=== PATIENT | female | born 1965 | race Caucasian/White ===

== ENCOUNTER → 2018-02-05 14:10 | Outpatient (CLI) | payer OTHER, MEDICAID, SELFPAY ==
[2018-02-05 14:54] LABS: Hemoglobin A1C% w Est Avg Glu > 14.0 % (4.0-6.0)
[2018-02-05 15:08] LABS: Alanine Aminotransferase 40 IU/L (9-52); Albumin 3.6 g/dL (3.5-5.0); Albumin Globulin Ratio 1.1 (1.0-2.8); Alkaline Phosphatase 329 U/L (38-126); Aspartate Aminotransferase 53 IU/L (14-36); BUN Creatinine Ratio 13.8 (6-22); Bilirubin Total 0.4 mg/dL (0.2-1.3); Blood Urea Nitrogen 11 mg/dL (7-17); Calcium 8.6 mg/dL (8.4-10.2); Carbon Dioxide 27 mmol/L (22-32); Chloride 94 mmol/L (98-107); Estimated Glomerular Filt Rate > 60.0 mL/min (>60); Globulin 3.4 g/dL (1.7-4.1); HEMOLYSIS < 15 (0-50); Potassium 4.4 mmol/L (3.4-5.1); Sodium 132 mmol/L (137-145)
[2018-02-05 15:20] LABS: Glucose 823 mg/dL (70-100)
== END ==
PROVIDERS: PCP Family Medicine; Visit Provider Family Medicine
DX: R74.8 Abnormal levels of other serum enzymes (principal); E11.42 Type 2 diabetes mellitus with diabetic polyneuropathy
CPT/HCPCS: 36415; 80053; 83036

== ENCOUNTER 2018-05-06 23:51 | Emergency (ER) | payer OTHER, MEDICAID, SELFPAY ==
[2018-05-07 00:02] VITALS: BP 164/101; PULSE 104; RESP 18; TEMP 37; O2SAT 99
--- NOTE | 2018-05-07 00:21 | DI.RAD.S_ITS ---
PROCEDURE: XR HAND LT MIN 3V INDICATIONS: bruising 5th metacarpal TECHNIQUE: 3 views of the hand(s) acquired. COMPARISON: None. FINDINGS: Bones: There is an oblique fracture at the base of the fifth metacarpal with mild displacement. Carpal bones are normally aligned. No suspicious bony lesions. Soft tissues: No suspicious soft tissue calcifications. IMPRESSION: Mildly displaced oblique fracture at the fifth metacarpal base Dictated by: Jeffrey Nathan M.D. on 05/07/2018 at 8:19 Approved by: Jeffrey Nathan M.D. on 05/07/2018 at 9:37
--- NOTE | 2018-05-07 00:21 | DI.RAD.S_ITS ---
PROCEDURE: XR WRIST RT MIN 3V INDICATIONS: pain right wrist. TECHNIQUE: 4 views of the wrist were acquired. COMPARISON: None. FINDINGS: Bones: No fractures or dislocations. No suspicious bony lesions. There is osteopenia. Scaphoid view: Port appears intact. Soft tissues: No suspicious soft tissue calcifications. IMPRESSION: No fracture or dislocation. Dictated by: Jeffrey Nathan M.D. on 05/07/2018 at 8:18 Approved by: Jeffrey Nathan M.D. on 05/07/2018 at 9:37
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
[2018-05-07] MEDS: INSULIN REGULAR 100 UNIT/ML 3 ML VIAL 25 UNIT SUBCUT (00:41)
[2018-05-07] MEDS: INSULIN GLARGINE 100 UNIT/ML 3ML PEN 33 UNIT SUBCUT (00:41)
[2018-05-07] MEDS: SODIUM CHLORIDE 0.9% 1,000 ML 500 ML IV (00:41)
[2018-05-07 00:42] LABS: Add Manual Diff / Slide Review NO; Basophils Percent Auto 0.7 % (0-2); Hematocrit 39.1 % (36-46); Hemoglobin 13.3 g/dL (12.0-16.0); Lymphocytes Percent Auto 25.8 % (25-40); Mean Corpuscular Hemoglobin 30.3 PG (26-34); Mean Corpuscular Volume 89.1 fL (80-100); Monocytes Percent Auto 3.3 % (3-14); Neutrophils Absolute Auto 8400 /uL (3000-5900); Neutrophils Percent Auto 69.2 % (50-75); Platelet Count 265 X10^3/uL (150-400); Red Blood Cell Count 4.38 X10^6/uL (4.0-5.2); Red Cell Distribution Width 12.5 % (11.6-14.8); White Blood Cell Count 12.1 X10^3/uL (4.5-11.0)
[2018-05-07 00:49] LABS: Alanine Aminotransferase 40 IU/L (9-52); Albumin 4.1 g/dL (3.5-5.0); Albumin Globulin Ratio 1.1 (1.0-2.8); Alkaline Phosphatase 294 U/L (38-126); Aspartate Aminotransferase 61 IU/L (14-36); BUN Creatinine Ratio 15.7 (6-22); Bilirubin Total 0.5 mg/dL (0.2-1.3); Blood Urea Nitrogen 11 mg/dL (7-17); Calcium 9.3 mg/dL (8.4-10.2); Carbon Dioxide 24 mmol/L (22-32); Chloride 94 mmol/L (98-107); Estimated Glomerular Filt Rate > 60.0 mL/min (>60); Globulin 3.7 g/dL (1.7-4.1); Glucose 451 mg/dL (70-100); HEMOLYSIS < 15 (0-50); Sodium 134 mmol/L (137-145); Total Protein 7.8 g/dL (6.3-8.2)
[2018-05-07] MEDS: ONDANSETRON 4 MG/2 ML INJ IV (01:35)
[2018-05-07 02:01] VITALS: BP 134/71; PULSE 100; O2SAT 100
[2018-05-07] MEDS: MORPHINE ER 30 MG TABLET PO (02:15)
[2018-05-07 02:34] LABS: RBC Urine None Seen (0-5/HPF)
[2018-05-07 02:45] LABS: Bacteria Urine Few (2-10); Culture Indicated Urine Specimen Cultured; Squamous Epithelial Cell Urine 0-1 /HPF; WBC Urine 1-5/HPF (0-5/HPF)
[2018-05-07 03:44] VITALS: BP 150/85; PULSE 103
[2018-05-07] MEDS: cloNIDine 0.1 MG TABLET PO (03:44)
[2018-05-07 03:47] VITALS: BP 150/85; PULSE 103; RESP 17; O2SAT 100
== END 2018-05-07 03:58 | disposition home or self-care (01) ==
PROVIDERS: Emergency Provider Emergency Medicine; PCP Family Medicine
DX: S62.307A Unspecified fracture of fifth metacarpal bone, left hand, initial encounter for closed fracture (principal); R73.9 Hyperglycemia, unspecified; Y04.8XXA Assault by other bodily force, initial encounter
CPT/HCPCS: 29125; 36591; 73110; 73130; 80053; 81003; 81015; 82962; 85025; 87077; 87086; 87147; 96361; 96374; 99283; 99284; J2405

== ENCOUNTER → 2018-06-17 13:42 | Outpatient (CLI) | payer OTHER, MEDICAID, SELFPAY ==
--- NOTE | 2018-06-17 | DI.MRI.S_ITS ---
PROCEDURE: MR LUMBAR SPINE WO CON INDICATIONS: LOW BACK PAIN TECHNIQUE: Noncontrast sagittal T1 spin echo and T2 fast echo, sagittal STIR, axial T1 and T2 fast spin echo through the lumbar spine. In cases with scoliosis, additional coronal T2 fast spin echo may be performed. COMPARISON: [facility], MR, L-SPINE WITHOUT CONTRAST, 10/16/2016, 20:51. FINDINGS: Image quality: Excellent. Alignment and Curvature: Levocurvature of the lumbar spine. Bone Marrow: Marrow is of normal overall signal. No acute vertebral body compression fractures. Spinal Cord: Conus medullaris terminates at the L2-L3 is level. Visualized cord demonstrates normal signal and size. Paraspinous Soft Tissues: No paravertebral masses. There is diffuse dependent subcutaneous edema from L1-sacrum. L1-L2: Minimal broad-based posterior disc bulge and bilateral facet disease. Mild central canal narrowing. Lateral recesses appear grossly patent. No left foraminal stenosis. Mild right foraminal narrowing. No interval change L2-L3: Broad-based posterior disc bulge and bilateral facet arthropathy. Mild dorsal epidural lipomatosis. Mild central canal narrowing. Minimal partial effacement of both lateral recesses, which appear symmetric. Mild right and no definite left foraminal narrowing. No definite interval change L3-L4: Minimal broad-based posterior disc bulge bilateral facet arthropathy. Dorsal epidural lipomatosis. Mild central canal narrowing. Minimal partial effacement of the lateral recesses which appear symmetric. Mild left and moderate right foraminal stenoses, slightly progressed on the right since the prior study. L4-L5: Broad-based posterior disc bulge bilateral facet arthropathy. Dorsal epidural lipomatosis. Moderate central canal stenosis. Asymmetric, left greater than right partial effacement of the lateral recesses however this is probably unchanged. Mild right and left foraminal narrowing, no interval change L5-S1: Broad-based posterior disc bulge and bilateral facet disease, with mild epidural lipomatosis. Bilateral facet arthropathy. Minimal symmetric partial effacement of both lateral recesses. Severe left and no right foraminal stenoses, as before IMPRESSION: Overall, unchanged examination since 10/16/16. Severe left L5-S1 foraminal stenosis, as before Moderate L4-L5 canal narrowing. Levocurvature of the lumbar spine as before. Dictated by: Shawn Romano M.D. on 06/17/2018 at 14:20 Approved by: Shawn Romano M.D. on 06/17/2018 at 14:32
== END ==
PROVIDERS: PCP Family Medicine; Visit Provider Acupuncturist
DX: M48.061 Spinal stenosis, lumbar region without neurogenic claudication (principal); M48.07 Spinal stenosis, lumbosacral region; M51.26 Other intervertebral disc displacement, lumbar region; M51.27 Other intervertebral disc displacement, lumbosacral region; M47.816 Spondylosis without myelopathy or radiculopathy, lumbar region; M47.817 Spondylosis without myelopathy or radiculopathy, lumbosacral region; E88.2 Lipomatosis, not elsewhere classified
CPT/HCPCS: 72148

== ENCOUNTER 2018-10-06 12:03 | Inpatient (IN) | payer OTHER, MEDICAID, SELFPAY ==
[2018-10-06 12:10] VITALS: BP 190/102; PULSE 101; RESP 20; TEMP 36.7; O2SAT 99; BMI 25.7
[2018-10-06] MEDS: ONDANSETRON 4 MG/2 ML INJ IV ×3 (12:35→17:46)
[2018-10-06 12:51] LABS: Add Manual Diff / Slide Review NO; Basophils Absolute Auto 100 /uL (0-100); Basophils Percent Auto 0.9 % (0-2); Eosinophils Absolute Auto 200 /uL (0-450); Eosinophils Percent Auto 2.1 % (2-4); Hematocrit 40.3 % (36-46); Hemoglobin 13.8 g/dL (12.0-16.0); INR 0.9 (0.9-1.3); Lymphocytes Absolute Auto 2200 /uL (1100-4500); Lymphocytes Percent Auto 26.1 % (25-40); Mean Corpuscular HGB Conc 34.2 % (30-36); Mean Corpuscular Hemoglobin 30.7 PG (26-34); Mean Corpuscular Volume 89.7 fL (80-100); Monocytes Absolute Auto 300 /uL (0-900); Monocytes Percent Auto 3.8 % (3-14); Neutrophils Absolute Auto 5800 /uL (1500-7000); Neutrophils Percent Auto 67.1 % (50-75); Platelet Count 262 X10^3/uL (150-400); Prothrombin Time 10.6 SECONDS (10.1-12.7); Red Blood Cell Count 4.49 X10^6/uL (4.0-5.2); Red Cell Distribution Width 13.2 % (11.6-14.8); White Blood Cell Count 8.6 X10^3/uL (4.5-11.0)
[2018-10-06 12:53] LABS: PTT Partial Thromboplastin Tim 34 SECONDS (26.4-36.2)
[2018-10-06] MEDS: SODIUM CHLORIDE 0.9% 1,000 ML 1000 ML IV (12:54)
[2018-10-06 12:56] LABS: Amylase 51 U/L (30-110); Lipase 221 U/L (23-300)
[2018-10-06 12:57] LABS: Alanine Aminotransferase 62 IU/L (9-52); Albumin 4.5 g/dL (3.5-5.0); Albumin Globulin Ratio 1.1 (1.0-2.8); Alkaline Phosphatase 341 U/L (38-126); Aspartate Aminotransferase 67 IU/L (14-36); Bilirubin Total 0.5 mg/dL (0.2-1.3); Blood Urea Nitrogen 16 mg/dL (7-17); Calcium 9.8 mg/dL (8.4-10.2); Carbon Dioxide 25 mmol/L (22-32); Chloride 98 mmol/L (98-107); Estimated Glomerular Filt Rate > 60.0 mL/min (>60); Globulin 4.1 g/dL (1.7-4.1); Glucose 353 mg/dL (70-100); HEMOLYSIS < 15 (0-50); Potassium 3.8 mmol/L (3.4-5.1); Sodium 136 mmol/L (137-145); Total Protein 8.6 g/dL (6.3-8.2)
--- NOTE | 2018-10-06 13:44 | ED.ABDPAIN ---
HPI - Abdominal Pain <Jimena Rosario PA-C - Last Filed: 10/06/18 21:17> General Chief Complaint: Abdominal Pain Stated Complaint: THROWING UP BILE/BLOOD,ABD PAIN Time Seen by Provider: 10/06/18 13:39 Source: patient Mode of arrival: ambulatory Limitations: no limitations History of Present Illness HPI narrative: this 53-year-old female comes to ED secondary to abdominal pain which she states has been going on for a week, but more intense since Sunday. She states she has been vomiting bile and/or blood off and on for about a week, also more persistent over the weekend. She cannot tell me how many times she has vomited today, but has had dry heaves since here. She describes the pain as diffuse. Can feel it radiating to her back. She states she has normal bowel movements, no blood in the stools. She denies any urinary symptoms. She states that she feels warm, but no blood in the stools. She feels itchy all over but denies any rash. She states that her COPD seems about the same as usual, no acute respiratory difficulties, no new swelling or pain in the extremities. She states that she can feel the abdominal pain radiating up into her chest at times but denies any christy chest pain. Denies any other complaints on systems review. She states that she was just changed to OxyContin from morphine, and also uses Dilaudid for breakthrough pain for her spinal disorders, sarcoidosis, and fibromyalgia, however states she has not been able to keep down her pain medicines all week, nor any food or fluids. She states that she was recently changed from previous pain medication to OxyContin 20 mg b.i.d. plus 4 mg Dilaudid for breakthrough pain. She gets this from [facility]. Related Data Home Medications Medication Instructions Recorded Confirmed epinephrine 0.3 mg IM PRN PRN #0 05/11/17 10/06/18 dicyclomine 10 mg PO QIDP PRN #0 10/05/17 10/06/18 Restasis 1 drp OPHTH BID #0 11/09/17 10/06/18 hydromorphone 4 mg PO PRN PRN #0 11/09/17 10/06/18 1 tab PO DAILY 01/18/18 10/06/18 vitamin,calcium,pqaidikw-vceb-gqnij acid tablet glucagon (human recombinant) 1 mg SUBCUT Q20M PRN 10/06/18 10/06/18 [Glucagon Emergency Kit (human)] oxycodone [OxyContin] 20 mg PO Q12H 10/06/18 10/06/18 vortioxetine [Trintellix] 1 tab PO DAILY 10/06/18 10/06/18 Previous Rx's Medication Instructions Recorded aspirin 81 mg PO QDAY #30 tab 04/20/16 pantoprazole [Protonix] 40 mg PO QDAY #90 tab 09/14/16 levomefolate calcium 15 mg PO QDAY #90 cap 07/12/17 [L-Methylfolate] naproxen [Naprosyn] 500 mg PO BID PRN #60 tab 08/17/17 Spiriva with HandiHaler 18 mcg INH QDAY #30 cap 08/23/17 Flovent HFA 2 puff INH BID #1 inh 09/04/17 ketoconazole 1 nathan TOPICAL BID #30 gm 09/11/17 Ventolin HFA 1 - 2 puff INH 4-6HRS #1 inh 10/18/17 ondansetron [Zofran ODT] 4 mg SUBLINGUAL Q6HP PRN #30 odt 11/12/17 insulin glargine (U-100) 100 30 unit SUBCUT HS #1 ml 05/31/18 unit/mL (3 mL) subcutaneous pen insulin lispro (U- 100) 100 10 - 15 unit SUBCUT ACHS #1 syr 05/31/18 unit/mL subcutaneous pen clonidine HCl 0.2 mg tablet 0.2 mg PO BID #60 tab 08/13/18 propranolol 20 mg tablet 20 mg PO TID PRN #10 tab 08/13/18 tizanidine 4 mg tablet 4 mg PO Q8H PRN #90 tab 08/27/18 dextroamphetamine-amphetamine ER 10 mg PO QAM #30 cap 08/29/18 10 mg 24hr capsule,extend release CMP Testosterone 0.2% See Rx Instructions .ROUTE 09/24/18 .COMPLEX #30 gram nystatin-triamcinolone 100,000 See Rx Instructions TOP BID #30 09/24/18 unit/gram-0.1 % topical ointment gram estradiol 0.01% (0.1 mg/gram) See Rx Instructions VAG DAILY 09/25/18 vaginal cream #42.5 gram Allergies Allergy/AdvReac Type Severity Reaction Status Date / Time venom-honey bee Allergy Severe SWOLLEN Verified 10/06/18 12:09 [bee venom (honey bee)] TONGUE AND THROAT BUT NOT ANAPHALAXIS pregabalin [From LYRICA] Allergy Intermediate 'WELTS ON Verified 10/06/18 12:09 MY BODY' cyclobenzaprine Allergy Unknown Verified 10/06/18 12:09 [From FLEXERIL] gabapentin Allergy Unknown MY Verified 10/06/18 12:09 THOUGHT IT MADE ME ACT WERID hydroxyzine AdvReac Unknown PT STATES Verified 10/06/18 12:09 EYES DRIES ME UP venlafaxine AdvReac Unknown MADE MY Verified 10/06/18 12:09 BLOOD PRESSURE HIGH trazodone AdvReac heart Verified 10/06/18 12:09 palpatations MALIN NICOLAS Allergy Severe SWELLING Uncoded 10/06/18 12:09 FACE AND THROAT LACTOSE INTOLERANT AdvReac Unknown Uncoded 10/06/18 12:09 Review of Systems <Jimena Rosario PA-C - Last Filed: 10/06/18 21:17> Review of Systems ROS Unobtainable: All systems reviewed & are unremarkable except as noted in HPI and below PFSH <Jimena Rosario PA-C - Last Filed: 10/06/18 21:17> Medical History ADHD (attention deficit hyperactivity disorder) (Chronic) Anxiety (Chronic) COPD (chronic obstructive pulmonary disease) (Chronic) Cataract (Chronic) Chronic cough (Chronic) Chronic headaches (Chronic) Depression (Chronic) Diabetes mellitus (Chronic 2003) Fibromyalgia (Chronic) GERD (gastroesophageal reflux disease) (Chronic 1980) Hyperlipidemia (Chronic 1991) Hypertension (Chronic 1991) Lumbar spine pain (Chronic) PTSD (post-traumatic stress disorder) (Chronic) Sarcoidosis (Chronic) Scoliosis (Chronic) Shoulder pain (Chronic) Spinal stenosis (Chronic) Cervical cancer (Resolved 1991) Chicken pox (Resolved) Esophageal stricture (Resolved 09/2017) History of blood transfusion (Resolved ~07/1981) Kidney stones (Resolved) Pancreatitis (Resolved 2010) Surgical History Status post cataract extraction (Acute) Anesthesia (Resolved) History of tonsillectomy (Resolved 1967) S/P dilatation of esophageal stricture (Resolved 09/2017) Status post delivery (Resolved 05/02/85) Status post cholecystectomy (Resolved 02/1985) Status post hysterectomy (Resolved 1986) Family History Brother Age: 61 Diabetes mellitus Child Age: 37 Asthma Child Heart defect Father Age: 81 Hypertension Cirrhosis of liver Mother Heart disease High cholesterol Amyloidosis Sister Age: 58 Diabetes mellitus Heart disease Sister Heart disease Social History household members: spouse Smoking Status: Former smoker alcohol intake: never Family History Brother Age: 61 Diabetes mellitus Child Age: 37 Asthma Child Heart defect Father Age: 81 Hypertension Cirrhosis of liver Mother Heart disease High cholesterol Amyloidosis Sister Age: 58 Diabetes mellitus Heart disease Sister Heart disease Social History household members: spouse Smoking Status: Former smoker alcohol intake: never Exam <Jimena Rosario PA-C - Last Filed: 10/06/18 21:17> Narrative Exam Narrative: GENERAL APPEARANCE: patient is fidgeting and rolling in bed, appears uncomfortable, in NAD HEENT: PERRL, EOMI, no scleral icterus, conjunctiva pink NECK: Supple LUNGS: Clear to auscultation bilaterally. HEART: Rate and rhythm regular, normal S1 and S2, no S3 or S4. ABDOMEN: Soft, nondistended, bowel sounds present x 4 quadrants, no masses palpable, no hepatosplenomegaly palpable. she has guarding on initial exam, no rebound, mild bilateral CVAT as well as generalized tenderness which appears more pronounced over the lower quadrants and flanks. EXTREMITIES: No edema, no cyanosis DERMATOLOGIC: No jaundice or exanthem NEUROLOGIC: Alert and oriented with normal speech and coordination Initial Vital Signs Initial Vital Signs: Vital Signs Temperature 98.1 F 10/06/18 12:10 Pulse Rate 101 H 10/06/18 12:10 Respiratory Rate 20 10/06/18 12:10 Blood Pressure 190/102 H 10/06/18 12:10 Pulse Oximetry 99 10/06/18 12:10 <Paras Brown MD - Last Filed: 10/07/18 19:20> Initial Vital Signs Initial Vital Signs: Vital Signs Temperature 98.1 F 10/06/18 12:10 Pulse Rate 101 H 10/06/18 12:10 Respiratory Rate 20 10/06/18 12:10 Blood Pressure 190/102 H 10/06/18 12:10 Pulse Oximetry 99 10/06/18 12:10 Course <Jimena Rosario PA-C - Last Filed: 10/06/18 21:17> Additional Information: patient appears improved after Dilaudid, and reports pain better. On exam she does have some diffuse tenderness but is no longer guarding. She is unable to tolerate a p.o. challenge of water or bland food. She started to have dry heaving again right away. She does not think any of her symptoms are related to being off of her pain medication. Discussed there are no acute findings /changes on her lab work or CT scan. I spoke with Dr. Ibanez, on-call hospitalist, regarding inability to tolerate p.o., and he is agreeable for admission for observation for fluids and pain management. Orders Ordered: ED Orders 10/07/18 16:27 Consult to Physician Routine 10/08/18 05:00 Basic Metabolic Panel Routine Magnesium Routine Albuterol (Ventolin Hfa) 2 puff INH RTQ4HR PRN PRN Reason: Shortness Of Breath Clonidine HCl (Catapres) 0.2 mg PO BID [facility] Last Admin: 10/07/18 09:58 Dose: 0.2 mg Admin: 10/06/18 21:15 Dose: 0.2 mg Dextrose (D50w) 25 gm IV PRN PRN; Protocol PRN Reason: Hypoglycemia Dicyclomine HCl (Bentyl) 10 mg PO QID PRN PRN Reason: Inflammation Enoxaparin Sodium (Lovenox) 40 mg SUBCUT DAILY [facility] Last Admin: 10/07/18 08:24 Dose: 40 mg Fluticasone Propionate (Flovent Hfa) 2 puff INH BID [facility] Last Admin: 10/07/18 16:32 Dose: 2 puff Admin: 10/07/18 12:10 Dose: Not Given Admin: 10/06/18 23:14 Dose: Not Given Hydromorphone HCl (Dilaudid) 0.5 mg IV Q2H PRN PRN Reason: Pain, Severe (7-10) Last Admin: 10/07/18 13:45 Dose: 0.5 mg Admin: 10/07/18 08:27 Dose: 0.5 mg Admin: 10/07/18 00:16 Dose: 0.5 mg Sodium Chloride (Normal Saline 0.9%) 1,000 mls @ 100 mls/hr IV CONT [facility] Last Admin: 10/07/18 12:56 Dose: 100 mls/hr Infusion: 10/07/18 12:56 Dose: 100 mls/hr Admin: 10/07/18 03:18 Dose: 100 mls/hr Infusion: 10/07/18 03:18 Dose: 100 mls/hr Admin: 10/06/18 17:31 Dose: 100 mls/hr Ibuprofen (Advil) 600 mg PO TID PRN PRN Reason: Headache Insulin Aspart (Novolog Flexpen) 0 unit SUBCUT ACHS [facility]; Protocol Last Admin: 10/07/18 17:18 Dose: 5 unit Admin: 10/07/18 11:41 Dose: 7 unit Insulin Glargine (Lantus Solostar (Pen)) 30 unit SUBCUT BEDTIME [facility] Last Admin: 10/06/18 21:13 Dose: 5 unit Metoclopramide HCl (Reglan) 5 mg IV Q6HR [facility] Stop: 10/08/18 07:00 Last Admin: 10/07/18 17:17 Dose: 5 mg Admin: 10/07/18 11:57 Dose: 5 mg Admin: 10/07/18 06:05 Dose: 5 mg Admin: 10/07/18 00:16 Dose: 5 mg Admin: 10/06/18 17:30 Dose: 5 mg Naloxone HCl (Narcan) 0.2 mg IV Q2MIN PRN PRN Reason: Opiate Reversal Cyclosporine ( (Restasis) 1 Drop) 1 drop EYE-BOTH BID [facility] Last Admin: 10/07/18 11:54 Dose: Not Given Admin: 10/06/18 21:15 Dose: Not Given Levomefolate Calcium (L-Methylfolate) 15 Mg 15 mg PO DAILY [facility] Last Admin: 10/07/18 11:55 Dose: Not Given Vortioxetine 1 Tab 1 tab PO DAILY [facility] Last Admin: 10/07/18 11:56 Dose: Not Given Dextroamphetamine- Amphetamine ( Adderall Xr) 10 Mg 10 mg PO DAILY [facility] Last Admin: 10/07/18 11:52 Dose: Not Given Ondansetron HCl (Zofran) 4 mg IV Q8HR PRN PRN Reason: Nausea And Vomiting Last Admin: 10/07/18 09:54 Dose: 4 mg Admin: 10/07/18 02:00 Dose: 4 mg Admin: 10/06/18 17:46 Dose: 4 mg Oxycodone HCl (Oxycontin) 20 mg PO Q12H [facility] Last Admin: 10/07/18 17:16 Dose: 20 mg Admin: 10/07/18 04:52 Dose: 20 mg Admin: 10/06/18 17:30 Dose: 20 mg Pantoprazole Sodium (Protonix) 40 mg PO 0600 [facility] Last Admin: 10/07/18 06:05 Dose: 40 mg Propranolol HCl (Inderal) 20 mg PO TID PRN PRN Reason: anxiety Last Admin: 10/07/18 09:56 Dose: 20 mg Admin: 10/07/18 01:57 Dose: 20 mg Tiotropium Erin (Spiriva) 18 mcg INH DAILY [facility] Last Admin: 10/07/18 12:10 Dose: Not Given Tizanidine HCl (Zanaflex) 4 mg PO Q8H PRN PRN Reason: muscle spasticity Last Admin: 10/07/18 13:00 Dose: 4 mg Discontinued Medications Albuterol (Ventolin Hfa) 2 puff INH 4-6HRS [facility] Hydromorphone HCl (Dilaudid) 2 mg IV NOW ONE Stop: 10/06/18 13:57 Last Admin: 10/06/18 14:12 Dose: 2 mg Hydromorphone HCl (Dilaudid) 0.5 mg IV Q2HR PRN PRN Reason: Pain, Moderate (4-6) Last Admin: 10/06/18 21:28 Dose: 0.5 mg Admin: 10/06/18 17:30 Dose: 0.5 mg Sodium Chloride (Normal Saline 0.9%) 1,000 mls @ 1,000 mls/hr IV BOLUS ONE Stop: 10/06/18 13:38 Last Infusion: 10/06/18 14:37 Dose: 0 mls/hr Admin: 10/06/18 12:54 Dose: 1,000 mls/hr Ondansetron HCl (Zofran) 4 mg IV NOW ONE Stop: 10/06/18 12:39 Last Admin: 10/06/18 12:35 Dose: 4 mg Ondansetron HCl (Zofran) 4 mg IV NOW ONE Stop: 10/06/18 14:00 Last Admin: 10/06/18 14:11 Dose: 4 mg Pantoprazole Sodium (Protonix) 40 mg IV NOW ONE Stop: 10/06/18 15:35 Last Admin: 10/06/18 15:38 Dose: 40 mg Vital Signs - 8 hr 10/07/18 13:00 10/07/18 16:32 10/07/18 16:37 Temperature 97.8 F 97.5 F L Pulse Rate 58 L 56 L 61 Respiratory Rate 18 12 19 Blood Pressure 126/65 139/71 Pulse Oximetry 95 100 97 <Paras Brown MD - Last Filed: 10/07/18 19:20> Orders Ordered: ED Orders 10/07/18 16:27 Consult to Physician Routine 10/08/18 05:00 Basic Metabolic Panel Routine Magnesium Routine Albuterol (Ventolin Hfa) 2 puff INH RTQ4HR PRN PRN Reason: Shortness Of Breath Clonidine HCl (Catapres) 0.2 mg PO BID [facility] Last Admin: 10/07/18 09:58 Dose: 0.2 mg Admin: 10/06/18 21:15 Dose: 0.2 mg Dextrose (D50w) 25 gm IV PRN PRN; Protocol PRN Reason: Hypoglycemia Dicyclomine HCl (Bentyl) 10 mg PO QID PRN PRN Reason: Inflammation Enoxaparin Sodium (Lovenox) 40 mg SUBCUT DAILY [facility] Last Admin: 10/07/18 08:24 Dose: 40 mg Fluticasone Propionate (Flovent Hfa) 2 puff INH BID [facility] Last Admin: 10/07/18 16:32 Dose: 2 puff Admin: 10/07/18 12:10 Dose: Not Given Admin: 10/06/18 23:14 Dose: Not Given Hydromorphone HCl (Dilaudid) 0.5 mg IV Q2H PRN PRN Reason: Pain, Severe (7-10) Last Admin: 10/07/18 13:45 Dose: 0.5 mg Admin: 10/07/18 08:27 Dose: 0.5 mg Admin: 10/07/18 00:16 Dose: 0.5 mg Sodium Chloride (Normal Saline 0.9%) 1,000 mls @ 100 mls/hr IV CONT [facility] Last Admin: 10/07/18 12:56 Dose: 100 mls/hr Infusion: 10/07/18 12:56 Dose: 100 mls/hr Admin: 10/07/18 03:18 Dose: 100 mls/hr Infusion: 10/07/18 03:18 Dose: 100 mls/hr Admin: 10/06/18 17:31 Dose: 100 mls/hr Ibuprofen (Advil) 600 mg PO TID PRN PRN Reason: Headache Insulin Aspart (Novolog Flexpen) 0 unit SUBCUT ACHS [facility]; Protocol Last Admin: 10/07/18 17:18 Dose: 5 unit Admin: 10/07/18 11:41 Dose: 7 unit Insulin Glargine (Lantus Solostar (Pen)) 30 unit SUBCUT BEDTIME [facility] Last Admin: 10/06/18 21:13 Dose: 5 unit Metoclopramide HCl (Reglan) 5 mg IV Q6HR [facility] Stop: 10/08/18 07:00 Last Admin: 10/07/18 17:17 Dose: 5 mg Admin: 10/07/18 11:57 Dose: 5 mg Admin: 10/07/18 06:05 Dose: 5 mg Admin: 10/07/18 00:16 Dose: 5 mg Admin: 10/06/18 17:30 Dose: 5 mg Naloxone HCl (Narcan) 0.2 mg IV Q2MIN PRN PRN Reason: Opiate Reversal Cyclosporine ( (Restasis) 1 Drop) 1 drop EYE-BOTH BID [facility] Last Admin: 10/07/18 11:54 Dose: Not Given Admin: 10/06/18 21:15 Dose: Not Given Levomefolate Calcium (L-Methylfolate) 15 Mg 15 mg PO DAILY [facility] Last Admin: 10/07/18 11:55 Dose: Not Given Vortioxetine 1 Tab 1 tab PO DAILY [facility] Last Admin: 10/07/18 11:56 Dose: Not Given Dextroamphetamine- Amphetamine ( Adderall Xr) 10 Mg 10 mg PO DAILY [facility] Last Admin: 10/07/18 11:52 Dose: Not Given Ondansetron HCl (Zofran) 4 mg IV Q8HR PRN PRN Reason: Nausea And Vomiting Last Admin: 10/07/18 09:54 Dose: 4 mg Admin: 10/07/18 02:00 Dose: 4 mg Admin: 10/06/18 17:46 Dose: 4 mg Oxycodone HCl (Oxycontin) 20 mg PO Q12H [facility] Last Admin: 10/07/18 17:16 Dose: 20 mg Admin: 10/07/18 04:52 Dose: 20 mg Admin: 10/06/18 17:30 Dose: 20 mg Pantoprazole Sodium (Protonix) 40 mg PO 0600 [facility] Last Admin: 10/07/18 06:05 Dose: 40 mg Propranolol HCl (Inderal) 20 mg PO TID PRN PRN Reason: anxiety Last Admin: 10/07/18 09:56 Dose: 20 mg Admin: 10/07/18 01:57 Dose: 20 mg Tiotropium Erin (Spiriva) 18 mcg INH DAILY [facility] Last Admin: 10/07/18 12:10 Dose: Not Given Tizanidine HCl (Zanaflex) 4 mg PO Q8H PRN PRN Reason: muscle spasticity Last Admin: 10/07/18 13:00 Dose: 4 mg Discontinued Medications Albuterol (Ventolin Hfa) 2 puff INH 4-6HRS [facility] Hydromorphone HCl (Dilaudid) 2 mg IV NOW ONE Stop: 10/06/18 13:57 Last Admin: 10/06/18 14:12 Dose: 2 mg Hydromorphone HCl (Dilaudid) 0.5 mg IV Q2HR PRN PRN Reason: Pain, Moderate (4-6) Last Admin: 10/06/18 21:28 Dose: 0.5 mg Admin: 10/06/18 17:30 Dose: 0.5 mg Sodium Chloride (Normal Saline 0.9%) 1,000 mls @ 1,000 mls/hr IV BOLUS ONE Stop: 10/06/18 13:38 Last Infusion: 10/06/18 14:37 Dose: 0 mls/hr Admin: 10/06/18 12:54 Dose: 1,000 mls/hr Ondansetron HCl (Zofran) 4 mg IV NOW ONE Stop: 10/06/18 12:39 Last Admin: 10/06/18 12:35 Dose: 4 mg Ondansetron HCl (Zofran) 4 mg IV NOW ONE Stop: 10/06/18 14:00 Last Admin: 10/06/18 14:11 Dose: 4 mg Pantoprazole Sodium (Protonix) 40 mg IV NOW ONE Stop: 10/06/18 15:35 Last Admin: 10/06/18 15:38 Dose: 40 mg Vital Signs - 8 hr 10/07/18 13:00 10/07/18 16:32 10/07/18 16:37 Temperature 97.8 F 97.5 F L Pulse Rate 58 L 56 L 61 Respiratory Rate 18 12 19 Blood Pressure 126/65 139/71 Pulse Oximetry 95 100 97 MDM - Abdominal Pain <Jimena Rosario PA-C - Last Filed: 10/06/18 21:17> Lab Data Attestation: I reviewed the patient's lab results. Result diagrams: 10/07/18 05:23 10/07/18 05:23 Lab Results 10/06/18 10/06/18 10/06/18 Range/Units 12:25 12:25 12:25 WBC 8.6 (4.5-11.0) X10^3/uL RBC 4.49 (4.0-5.2) X10^6/uL Hgb 13.8 (12.0-16.0) g/dL Hct 40.3 (36-46) % MCV 89.7 (80-100) fL MCH 30.7 (26-34) PG MCHC 34.2 (30-36) % RDW 13.2 (11.6-14.8) % Plt Count 262 (150-400) X10^3/uL Neut % (Auto) 67.1 (50-75) % Lymph % (Auto) 26.1 (25-40) % Allen % (Auto) 3.8 (3-14) % Eos % (Auto) 2.1 (2-4) % Baso % (Auto) 0.9 (0-2) % Neut # (Auto) 5800 (9147-6397) /uL Lymph # (Auto) 2200 (8306-9091) /uL Allen # (Auto) 300 (0-900) /uL Eos # (Auto) 200 (0-450) /uL Baso # (Auto) 100 (0-100) /uL PT 10.6 (10.1-12.7) SECONDS INR 0.9 (0.9-1.3) APTT 34 (26.4-36.2) SECONDS Sodium 136 L (137-145) mmol/L Potassium 3.8 (3.4-5.1) mmol/L Chloride 98 (98-107) mmol/L Carbon Dioxide 25 (22-32) mmol/L BUN 16 (7-17) mg/dL Creatinine 0.80 (0.52-1.04) mg/dL Estimated GFR > 60.0 (>60) mL/min BUN/Creatinine Ratio 20.0 (6-22) Glucose 353 H (70-100) mg/dL Hemoglobin A1c (4.0-6.0) % Calcium 9.8 (8.4-10.2) mg/dL Magnesium (1.6-2.3) mg/dL Total Bilirubin 0.5 (0.2-1.3) mg/dL AST 67 H (14-36) IU/L ALT 62 H (9-52) IU/L Alkaline Phosphatase 341 H (38-126) U/L Troponin I (0.01-0.034) ng/mL Total Protein 8.6 H (6.3-8.2) g/dL Albumin 4.5 (3.5-5.0) g/dL Globulin 4.1 (1.7-4.1) g/dL Albumin/Globulin Ratio 1.1 (1.0-2.8) Amylase (30-110) U/L Lipase (23-300) U/L TSH (0.47-4.68) uIU/mL 10/06/18 10/06/18 10/06/18 Range/Units 12:25 12:25 12:25 WBC (4.5-11.0) X10^3/uL RBC (4.0-5.2) X10^6/uL Hgb (12.0-16.0) g/dL Hct (36-46) % MCV (80-100) fL MCH (26-34) PG MCHC (30-36) % RDW (11.6-14.8) % Plt Count (150-400) X10^3/uL Neut % (Auto) (50-75) % Lymph % (Auto) (25-40) % Allen % (Auto) (3-14) % Eos % (Auto) (2-4) % Baso % (Auto) (0-2) % Neut # (Auto) (8468-0968) /uL Lymph # (Auto) (7884-8687) /uL Allen # (Auto) (0-900) /uL Eos # (Auto) (0-450) /uL Baso # (Auto) (0-100) /uL PT (10.1-12.7) SECONDS INR (0.9-1.3) APTT (26.4-36.2) SECONDS Sodium (137-145) mmol/L Potassium (3.4-5.1) mmol/L Chloride (98-107) mmol/L Carbon Dioxide (22-32) mmol/L BUN (7-17) mg/dL Creatinine (0.52-1.04) mg/dL Estimated GFR (>60) mL/min BUN/Creatinine Ratio (6-22) Glucose (70-100) mg/dL Hemoglobin A1c 13.1 H (4.0-6.0) % Calcium (8.4-10.2) mg/dL Magnesium (1.6-2.3) mg/dL Total Bilirubin (0.2-1.3) mg/dL AST (14-36) IU/L ALT (9-52) IU/L Alkaline Phosphatase (38-126) U/L Troponin I < 0.012 (0.01-0.034) ng/mL Total Protein (6.3-8.2) g/dL Albumin (3.5-5.0) g/dL Globulin (1.7-4.1) g/dL Albumin/Globulin Ratio (1.0-2.8) Amylase 51 (30-110) U/L Lipase 221 (23-300) U/L TSH (0.47-4.68) uIU/mL 10/07/18 10/07/18 10/07/18 Range/Units 05:23 05:23 05:23 WBC 9.6 (4.5-11.0) X10^3/uL RBC 3.90 L (4.0-5.2) X10^6/uL Hgb 11.8 L (12.0-16.0) g/dL Hct 34.9 L (36-46) % MCV 89.6 (80-100) fL MCH 30.4 (26-34) PG MCHC 33.9 (30-36) % RDW 13.3 (11.6-14.8) % Plt Count 224 (150-400) X10^3/uL Neut % (Auto) 47.8 L (50-75) % Lymph % (Auto) 44.9 H (25-40) % Allen % (Auto) 4.3 (3-14) % Eos % (Auto) 2.4 (2-4) % Baso % (Auto) 0.6 (0-2) % Neut # (Auto) 4600 (9185-7628) /uL Lymph # (Auto) 4300 (0416-8307) /uL Allen # (Auto) 400 (0-900) /uL Eos # (Auto) 200 (0-450) /uL Baso # (Auto) 100 (0-100) /uL PT (10.1-12.7) SECONDS INR (0.9-1.3) APTT (26.4-36.2) SECONDS Sodium 138 (137-145) mmol/L Potassium 4.4 (3.4-5.1) mmol/L Chloride 107 (98-107) mmol/L Carbon Dioxide 24 (22-32) mmol/L BUN 9 (7-17) mg/dL Creatinine 0.80 (0.52-1.04) mg/dL Estimated GFR > 60.0 (>60) mL/min BUN/Creatinine Ratio 11.3 (6-22) Glucose 195 H D (70-100) mg/dL Hemoglobin A1c (4.0-6.0) % Calcium 8.7 (8.4-10.2) mg/dL Magnesium 2.1 (1.6-2.3) mg/dL Total Bilirubin 0.5 (0.2-1.3) mg/dL AST 70 H (14-36) IU/L ALT 66 H (9-52) IU/L Alkaline Phosphatase 275 H (38-126) U/L Troponin I (0.01-0.034) ng/mL Total Protein 7.0 (6.3-8.2) g/dL Albumin 3.5 (3.5-5.0) g/dL Globulin 3.5 (1.7-4.1) g/dL Albumin/Globulin Ratio 1.0 (1.0-2.8) Amylase (30-110) U/L Lipase (23-300) U/L TSH 1.42 (0.47-4.68) uIU/mL Point of care testing: Point of Care Testing Glucose POC [address] scan - abdomen: Radiologist's impression: [address] [address] [address] Scan Report Signed Patient: Keila Godfrey RMR#: [id number] : 1965Acct:[id number] Age/Sex: 53 / FDate of Service: 10/06/18 Loc: ED Accession Number: [id number] Procedure: CT abdomen pelvis w con Ordering Provider: Jimena Rosario P.A-C PROCEDURE: CT ABDOMEN PELVIS W CON INDICATIONS: pain, vomiting bile/blood TECHNIQUE: After the administration of intravenous contrast, 5 mm thick sections acquired from the diaphragm to the symphysis. 5 mm coronal and sagittal reformats were acquired. For radiation dose reduction, the following was used: automated exposure control, adjustment of mA and/or kV according to patient size. COMPARISON: None. FINDINGS: Image quality: Excellent. ABDOMEN: Lung bases: Lung bases are clear. Heart size is normal. Moderate hiatal hernia. Solid organs: Liver is normal in size and enhancement. Persistent diffuse hypoattenuation of the liver suggesting hepatic steatosis. Minimal nodular liver contour, unchanged. Gallbladder is surgically absent with persistent prominence of the common bile duct. No intrahepatic biliary ductal system dilatation. Pancreas enhances normally. Stable appearance of minimal prominence of the main pancreatic duct. Spleen is normal in size and enhancement. No adrenal nodules. Kidneys demonstrate normal size and enhancement, without hydronephrosis. Peritoneum and bowel: Bowel loops demonstrate normal wall thickness and caliber. No free fluid or air. Moderate fecal load seen throughout the colon. Nodes and vessels: No retroperitoneal or mesenteric adenopathy by size criteria. Aorta and inferior vena cava are normal in size. Miscellaneous: No ventral hernias. PELVIS: Genitourinary: Bladder wall thickness is normal. Miscellaneous: No inguinal hernias or adenopathy. Bones: No suspicious bony lesions. No acute vertebral body compression fractures. Multilevel lumbar spondylosis, stable. IMPRESSION: 1. Stable CT evaluation abdomen and pelvis without acute abnormalities. 2. Status post cholecystectomy with stable dilatation of the common bile duct and minimal prominence of the main pancreatic duct. Findings are likely related to post cholecystectomy changes. 3. Moderate size hiatal hernia. 4. Hepatic steatosis. Dictated by: Blayne Rodriguez M.D. on 10/06/2018 at 14:57 Approved by: Blayne Rodriguez M.D. on 10/06/2018 at 15:06 <Paras Brown MD - Last Filed: 10/07/18 19:20> Lab Data Lab Results 10/06/18 10/06/18 10/06/18 Range/Units 12:25 12:25 12:25 WBC 8.6 (4.5-11.0) X10^3/uL RBC 4.49 (4.0-5.2) X10^6/uL Hgb 13.8 (12.0-16.0) g/dL Hct 40.3 (36-46) % MCV 89.7 (80-100) fL MCH 30.7 (26-34) PG MCHC 34.2 (30-36) % RDW 13.2 (11.6-14.8) % Plt Count 262 (150-400) X10^3/uL Neut % (Auto) 67.1 (50-75) % Lymph % (Auto) 26.1 (25-40) % Allen % (Auto) 3.8 (3-14) % Eos % (Auto) 2.1 (2-4) % Baso % (Auto) 0.9 (0-2) % Neut # (Auto) 5800 (6606-0287) /uL Lymph # (Auto) 2200 (6532-5645) /uL Allen # (Auto) 300 (0-900) /uL Eos # (Auto) 200 (0-450) /uL Baso # (Auto) 100 (0-100) /uL PT 10.6 (10.1-12.7) SECONDS INR 0.9 (0.9-1.3) APTT 34 (26.4-36.2) SECONDS Sodium 136 L (137-145) mmol/L Potassium 3.8 (3.4-5.1) mmol/L Chloride 98 (98-107) mmol/L Carbon Dioxide 25 (22-32) mmol/L BUN 16 (7-17) mg/dL Creatinine 0.80 (0.52-1.04) mg/dL Estimated GFR > 60.0 (>60) mL/min BUN/Creatinine Ratio 20.0 (6-22) Glucose 353 H (70-100) mg/dL Hemoglobin A1c (4.0-6.0) % Calcium 9.8 (8.4-10.2) mg/dL Magnesium (1.6-2.3) mg/dL Total Bilirubin 0.5 (0.2-1.3) mg/dL AST 67 H (14-36) IU/L ALT 62 H (9-52) IU/L Alkaline Phosphatase 341 H (38-126) U/L Troponin I (0.01-0.034) ng/mL Total Protein 8.6 H (6.3-8.2) g/dL Albumin 4.5 (3.5-5.0) g/dL Globulin 4.1 (1.7-4.1) g/dL Albumin/Globulin Ratio 1.1 (1.0-2.8) Amylase (30-110) U/L Lipase (23-300) U/L TSH (0.47-4.68) uIU/mL 10/06/18 10/06/18 10/06/18 Range/Units 12:25 12:25 12:25 WBC (4.5-11.0) X10^3/uL RBC (4.0-5.2) X10^6/uL Hgb (12.0-16.0) g/dL Hct (36-46) % MCV (80-100) fL MCH (26-34) PG MCHC (30-36) % RDW (11.6-14.8) % Plt Count (150-400) X10^3/uL Neut % (Auto) (50-75) % Lymph % (Auto) (25-40) % Allen % (Auto) (3-14) % Eos % (Auto) (2-4) % Baso % (Auto) (0-2) % Neut # (Auto) (4688-0483) /uL Lymph # (Auto) (2520-6946) /uL Allen # (Auto) (0-900) /uL Eos # (Auto) (0-450) /uL Baso # (Auto) (0-100) /uL PT (10.1-12.7) SECONDS INR (0.9-1.3) APTT (26.4-36.2) SECONDS Sodium (137-145) mmol/L Potassium (3.4-5.1) mmol/L Chloride (98-107) mmol/L Carbon Dioxide (22-32) mmol/L BUN (7-17) mg/dL Creatinine (0.52-1.04) mg/dL Estimated GFR (>60) mL/min BUN/Creatinine Ratio (6-22) Glucose (70-100) mg/dL Hemoglobin A1c 13.1 H (4.0-6.0) % Calcium (8.4-10.2) mg/dL Magnesium (1.6-2.3) mg/dL Total Bilirubin (0.2-1.3) mg/dL AST (14-36) IU/L ALT (9-52) IU/L Alkaline Phosphatase (38-126) U/L Troponin I < 0.012 (0.01-0.034) ng/mL Total Protein (6.3-8.2) g/dL Albumin (3.5-5.0) g/dL Globulin (1.7-4.1) g/dL Albumin/Globulin Ratio (1.0-2.8) Amylase 51 (30-110) U/L Lipase 221 (23-300) U/L TSH (0.47-4.68) uIU/mL 10/07/18 10/07/18 10/07/18 Range/Units 05:23 05:23 05:23 WBC 9.6 (4.5-11.0) X10^3/uL RBC 3.90 L (4.0-5.2) X10^6/uL Hgb 11.8 L (12.0-16.0) g/dL Hct 34.9 L (36-46) % MCV 89.6 (80-100) fL MCH 30.4 (26-34) PG MCHC 33.9 (30-36) % RDW 13.3 (11.6-14.8) % Plt Count 224 (150-400) X10^3/uL Neut % (Auto) 47.8 L (50-75) % Lymph % (Auto) 44.9 H (25-40) % Allen % (Auto) 4.3 (3-14) % Eos % (Auto) 2.4 (2-4) % Baso % (Auto) 0.6 (0-2) % Neut # (Auto) 4600 (8475-5745) /uL Lymph # (Auto) 4300 (2065-6823) /uL Allen # (Auto) 400 (0-900) /uL Eos # (Auto) 200 (0-450) /uL Baso # (Auto) 100 (0-100) /uL PT (10.1-12.7) SECONDS INR (0.9-1.3) APTT (26.4-36.2) SECONDS Sodium 138 (137-145) mmol/L Potassium 4.4 (3.4-5.1) mmol/L Chloride 107 (98-107) mmol/L Carbon Dioxide 24 (22-32) mmol/L BUN 9 (7-17) mg/dL Creatinine 0.80 (0.52-1.04) mg/dL Estimated GFR > 60.0 (>60) mL/min BUN/Creatinine Ratio 11.3 (6-22) Glucose 195 H D (70-100) mg/dL Hemoglobin A1c (4.0-6.0) % Calcium 8.7 (8.4-10.2) mg/dL Magnesium 2.1 (1.6-2.3) mg/dL Total Bilirubin 0.5 (0.2-1.3) mg/dL AST 70 H (14-36) IU/L ALT 66 H (9-52) IU/L Alkaline Phosphatase 275 H (38-126) U/L Troponin I (0.01-0.034) ng/mL Total Protein 7.0 (6.3-8.2) g/dL Albumin 3.5 (3.5-5.0) g/dL Globulin 3.5 (1.7-4.1) g/dL Albumin/Globulin Ratio 1.0 (1.0-2.8) Amylase (30-110) U/L Lipase (23-300) U/L TSH 1.42 (0.47-4.68) uIU/mL Point of care testing: Point of Care Testing Glucose POC 270 Discharge Plan Departure Patient Disposition: Admitted as Observation Clinical Impression: Abdominal pain Qualifiers: Abdominal location: generalized Qualified Code(s): R10.84 - Generalized abdominal pain Vomiting Qualifiers: Vomiting type: unspecified Vomiting Intractability: intractable Nausea presence: with nausea Qualified Code(s): R11.2 - Nausea with vomiting, unspecified Discharge Date/Time: 10/06/18 16:52 Interventions: ED Discharge Assessment Last Done: 10/06/18 16:50 Admit Date/Time: 10/06/18 16:11 Admit Provider: Bibiana Ibanez <Paras Brown MD - Last Filed: 10/07/18 19:20> Cosign ED Attending Luis Enrique Attestation: I was working in the ER at the time this patient's care. the patient's care was reviewed with the provider prior to disposition.I agree with the assessment and disposition.
--- NOTE | 2018-10-06 13:56 | DI.CT.S_ITS ---
PROCEDURE: CT ABDOMEN PELVIS W CON INDICATIONS: pain, vomiting bile/blood TECHNIQUE: After the administration of intravenous contrast, 5 mm thick sections acquired from the diaphragm to the symphysis. 5 mm coronal and sagittal reformats were acquired. For radiation dose reduction, the following was used: automated exposure control, adjustment of mA and/or kV according to patient size. COMPARISON: None. FINDINGS: Image quality: Excellent. ABDOMEN: Lung bases: Lung bases are clear. Heart size is normal. Moderate hiatal hernia. Solid organs: Liver is normal in size and enhancement. Persistent diffuse hypoattenuation of the liver suggesting hepatic steatosis. Minimal nodular liver contour, unchanged. Gallbladder is surgically absent with persistent prominence of the common bile duct. No intrahepatic biliary ductal system dilatation. Pancreas enhances normally. Stable appearance of minimal prominence of the main pancreatic duct. Spleen is normal in size and enhancement. No adrenal nodules. Kidneys demonstrate normal size and enhancement, without hydronephrosis. Peritoneum and bowel: Bowel loops demonstrate normal wall thickness and caliber. No free fluid or air. Moderate fecal load seen throughout the colon. Nodes and vessels: No retroperitoneal or mesenteric adenopathy by size criteria. Aorta and inferior vena cava are normal in size. Miscellaneous: No ventral hernias. PELVIS: Genitourinary: Bladder wall thickness is normal. Miscellaneous: No inguinal hernias or adenopathy. Bones: No suspicious bony lesions. No acute vertebral body compression fractures. Multilevel lumbar spondylosis, stable. IMPRESSION: 1. Stable CT evaluation abdomen and pelvis without acute abnormalities. 2. Status post cholecystectomy with stable dilatation of the common bile duct and minimal prominence of the main pancreatic duct. Findings are likely related to post cholecystectomy changes. 3. Moderate size hiatal hernia. 4. Hepatic steatosis. Dictated by: Blayne Rodriguez M.D. on 10/06/2018 at 14:57 Approved by: Blayne Rodriguez M.D. on 10/06/2018 at 15:06
--- NOTE | 2018-10-06 14:05 | ED_ITS ---
HPI - Abdominal Pain <Jimena Rosario PA-C - Last Filed: 10/06/18 21:17> General Chief Complaint: Abdominal Pain Stated Complaint: THROWING UP BILE/BLOOD,ABD PAIN Time Seen by Provider: 10/06/18 13:39 Source: patient Mode of arrival: ambulatory Limitations: no limitations History of Present Illness HPI narrative: this 53-year-old female comes to ED secondary to abdominal pain which she states has been going on for a week, but more intense since Sunday. She states she has been vomiting bile and/or blood off and on for about a week, also more persistent over the weekend. She cannot tell me how many times she has vomited today, but has had dry heaves since here. She describes the pain as diffuse. Can feel it radiating to her back. She states she has normal bowel movements, no blood in the stools. She denies any urinary symptoms. She states that she feels warm, but no blood in the stools. She feels itchy all over but denies any rash. She states that her COPD seems about the same as usual, no acute respiratory difficulties, no new swelling or pain in the extremities. She states that she can feel the abdominal pain radiating up into her chest at times but denies any christy chest pain. Denies any other complaints on systems review. She states that she was just changed to OxyContin from morphine, and also uses Dilaudid for breakthrough pain for her spinal disorders, sarcoidosis, and fibromyalgia, however states she has not been able to keep down her pain medici esteban all week, nor any food or fluids. She states that she was recently changed from previous pain medication to OxyContin 20 mg b.i.d. plus 4 mg Dilaudid for breakthrough pain. She gets this from [facility]. Related Data Home Medications Medication Instructions Recorded Confirmed epinephrine 0.3 mg IM PRN PRN #0 05/11/17 10/06/18 dicyclomine 10 mg PO QIDP PRN #0 10/05/17 10/06/18 Restasis 1 drp OPHTH BID #0 11/09/17 10/06/18 hydromorphone 4 mg PO PRN PRN #0 11/09/17 10/06/18 1 tab PO DAILY 01/18/18 10/06/18 vitamin,calcium,pbqlnurt-eotv-sfucp acid tablet glucagon (human recombinant) 1 mg SUBCUT Q20M PRN 10/06/18 10/06/18 [Glucagon Emergency Kit (human)] oxycodone [OxyContin] 20 mg PO Q12H 10/06/18 10/06/18 vortioxetine [Trintellix] 1 tab PO DAILY 10/06/18 10/06/18 Previous Rx's Medication Instructions Recorded aspirin 81 mg PO QDAY #30 tab 04/20/16 pantoprazole [Protonix] 40 mg PO QDAY #90 tab 09/14/16 levomefolate calcium 15 mg PO QDAY #90 cap 07/12/17 [L-Methylfolate] naproxen [Naprosyn] 500 mg PO BID PRN #60 tab 08/17/17 Spiriva with HandiHaler 18 mcg INH QDAY #30 cap 08/23/17 Flovent HFA 2 puff INH BID #1 inh 09/04/17 ketoconazole 1 nathan TOPICAL BID #30 gm 09/11/17 Ventolin HFA 1 - 2 puff INH 4-6HRS #1 inh 10/18/17 ondansetron [Zofran ODT] 4 mg SUBLINGUAL Q6HP PRN #30 odt 11/12/17 insulin glargine (U-100) 100 30 unit SUBCUT HS #1 ml 05/31/18 unit/mL (3 mL) subcutaneous pen insulin lispro (U- 100) 100 10 - 15 unit SUBCUT ACHS #1 syr 05/31/18 unit/mL subcutaneous pen clonidine HCl 0.2 mg tablet 0.2 mg PO BID #60 tab 08/13/18 propranolol 20 mg tablet 20 mg PO TID PRN #10 tab 08/13/18 tizanidine 4 mg tablet 4 mg PO Q8H PRN #90 tab 08/27/18 dextroamphetamine-amphetamine ER 10 mg PO QAM #30 cap 08/29/18 10 mg 24hr capsule,extend release CMP Testosterone 0.2% See Rx Instructions .ROUTE 09/24/18 .COMPLEX #30 gram nystatin-triamcinolone 100,000 See Rx Instructions TOP BID #30 09/24/18 unit/gram-0.1 % topical ointment gram estradiol 0.01% (0.1 mg/gram) See Rx Instructions VAG DAILY 09/25/18 vaginal cream #42.5 gram Allergies Allergy/AdvReac Type Severity Reaction Status Date / Time venom-honey bee Allergy Severe SWOLLEN Verified 10/06/18 12:09 [bee venom (honey bee)] TONGUE AND THROAT BUT NOT ANAPHALAXIS pregabalin [From LYRICA] Allergy Intermediate 'WELTS ON Verified 10/06/18 12:09 MY BODY' cyclobenzaprine Allergy Unknown Verified 10/06/18 12:09 [From FLEXERIL] gabapentin Allergy Unknown MY Verified 10/06/18 12:09 THOUGHT IT MADE ME ACT WERID hydroxyzine AdvReac Unknown PT STATES Verified 10/06/18 12:09 EYES DRIES ME UP venlafaxine AdvReac Unknown MADE MY Verified 10/06/18 12:09 BLOOD PRESSURE HIGH trazodone AdvReac heart Verified 10/06/18 12:09 palpatations MALIN NICOLAS Allergy Severe SWELLING Uncoded 10/06/18 12:09 FACE AND THROAT LACTOSE INTOLERANT AdvReac Unknown Uncoded 10/06/18 12:09 Review of Systems <Jimena Rosario PA-C - Last Filed: 10/06/18 21:17> Review of Systems ROS Unobtainable: All systems reviewed & are unremarkable except as noted in HPI and below PFSH <Jimena Rosario PA-C - Last Filed: 10/06/18 21:17> Medical History ADHD (attention deficit hyperactivity disorder) (Chronic) Anxiety (Chronic) COPD (chronic obstructive pulmonary disease) (Chronic) Cataract (Chronic) Chronic cough (Chronic) Chronic headaches (Chronic) Depression (Chronic) Diabetes mellitus (Chronic 2003) Fibromyalgia (Chronic) GERD (gastroesophageal reflux disease) (Chronic 1980) Hyperlipidemia (Chronic 1991) Hypertension (Chronic 1991) Lumbar spine pain (Chronic) PTSD (post-traumatic stress disorder) (Chronic) Sarcoidosis (Chronic) Scoliosis (Chronic) Shoulder pain (Chronic) Spinal stenosis (Chronic) Cervical cancer (Resolved 1991) Chicken pox (Resolved) Esophageal stricture (Resolved 09/2017) History of blood transfusion (Resolved ~07/1981) Kidney stones (Resolved) Pancreatitis (Resolved 2010) Surgical History Status post cataract extraction (Acute) Anesthesia (Resolved) History of tonsillectomy (Resolved 1967) S/P dilatation of esophageal stricture (Resolved 09/2017) Status post delivery (Resolved 05/02/85) Status post cholecystectomy (Resolved 02/1985) Status post hysterectomy (Resolved 1986) Family History Brother Age: 61 Diabetes mellitus Child Age: 37 Asthma Child Heart defect Father Age: 81 Hypertension Cirrhosis of liver Mother Heart disease High cholesterol Amyloidosis Sister Age: 58 Diabetes mellitus Heart disease Sister Heart disease Social History household members: spouse Smoking Status: Former smoker alcohol intake: never Family History Brother Age: 61 Diabetes mellitus Child Age: 37 Asthma Child Heart defect Father Age: 81 Hypertension Cirrhosis of liver Mother Heart disease High cholesterol Amyloidosis Sister Age: 58 Diabetes mellitus Heart disease Sister Heart disease Social History household members: spouse Smoking Status: Former smoker alcohol intake: never Exam <Jimena Rosario PA-C - Last Filed: 10/06/18 21:17> Narrative Exam Narrative: GENERAL APPEARANCE: patient is fidgeting and rolling in bed, appears uncomfortable, in NAD HEENT: PERRL, EOMI, no scleral icterus, conjunctiva pink NECK: Supple LUNGS: Clear to auscultation bilaterally. HEART: Rate and rhythm regular, normal S1 and S2, no S3 or S4. ABDOMEN: Soft, nondistended, bowel sounds present x 4 quadrants, no masses palpable, no hepatosplenomegaly palpable. she has guarding on initial exam, no rebound, mild bilateral CVAT as well as generalized tenderness which appears more pronounced over the lower quadrants and flanks. EXTREMITIES: No edema, no cyanosis DERMATOLOGIC: No jaundice or exanthem NEUROLOGIC: Alert and oriented with normal speech and coordination Initial Vital Signs Initial Vital Signs: Vital Signs Temperature 98.1 F 10/06/18 12:10 Pulse Rate 101 H 10/06/18 12:10 Respiratory Rate 20 10/06/18 12:10 Blood Pressure 190/102 H 10/06/18 12:10 Pulse Oximetry 99 10/06/18 12:10 <Paras Brown MD - Last Filed: 10/07/18 19:20> Initial Vital Signs Initial Vital Signs: Vital Signs Temperature 98.1 F 10/06/18 12:10 Pulse Rate 101 H 10/06/18 12:10 Respiratory Rate 20 10/06/18 12:10 Blood Pressure 190/102 H 10/06/18 12:10 Pulse Oximetry 99 10/06/18 12:10 Course <Jimena Rosario PA-C - Last Filed: 10/06/18 21:17> Additional Information: patient appears improved after Dilaudid, and reports pain better. On exam she does have some diffuse tenderness but is no longer guarding. She is unable to tolerate a p.o. challenge of water or bland food. She started to have dry heaving again right away. She does not think any of her symptoms are related to being off of her pain medication. Discussed there are no acute findings /changes on her lab work or CT scan. I spoke with Dr. Ibanez, on-call hospitalist, regarding inability to tolerate p.o., and he is agreeable for admission for observation for fluids and pain management. Orders Ordered: ED Orders 10/07/18 16:27 Consult to Physician Routine 10/08/18 05:00 Basic Metabolic Panel Routine Magnesium Routine Albuterol (Ventolin Hfa) 2 puff INH RTQ4HR PRN PRN Reason: Shortness Of Breath Clonidine HCl (Catapres) 0.2 mg PO BID [facility] Last Admin: 10/07/18 09:58 Dose: 0.2 mg Admin: 10/06/18 21:15 Dose: 0.2 mg Dextrose (D50w) 25 gm IV PRN PRN; Protocol PRN Reason: Hypoglycemia Dicyclomine HCl (Bentyl) 10 mg PO QID PRN PRN Reason: Inflammation Enoxaparin Sodium (Lovenox) 40 mg SUBCUT DAILY [facility] Last Admin: 10/07/18 08:24 Dose: 40 mg Fluticasone Propionate (Flovent Hfa) 2 puff INH BID [facility] Last Admin: 10/07/18 16:32 Dose: 2 puff Admin: 10/07/18 12:10 Dose: Not Given Admin: 10/06/18 23:14 Dose: Not Given Hydromorphone HCl (Dilaudid) 0.5 mg IV Q2H PRN PRN Reason: Pain, Severe (7-10) Last Admin: 10/07/18 13:45 Dose: 0.5 mg Admin: 10/07/18 08:27 Dose: 0.5 mg Admin: 10/07/18 00:16 Dose: 0.5 mg Sodium Chloride (Normal Saline 0.9%) 1,000 mls @ 100 mls/hr IV CONT [facility] Last Admin: 10/07/18 12:56 Dose: 100 mls/hr Infusion: 10/07/18 12:56 Dose: 100 mls/hr Admin: 10/07/18 03:18 Dose: 100 mls/hr Infusion: 10/07/18 03:18 Dose: 100 mls/hr Admin: 10/06/18 17:31 Dose: 100 mls/hr Ibuprofen (Advil) 600 mg PO TID PRN PRN Reason: Headache Insulin Aspart (Novolog Flexpen) 0 unit SUBCUT ACHS [facility]; Protocol Last Admin: 10/07/18 17:18 Dose: 5 unit Admin: 10/07/18 11:41 Dose: 7 unit Insulin Glargine (Lantus Solostar (Pen)) 30 unit SUBCUT BEDTIME [facility] Last Admin: 10/06/18 21:13 Dose: 5 unit Metoclopramide HCl (Reglan) 5 mg IV Q6HR [facility] Stop: 10/08/18 07:00 Last Admin: 10/07/18 17:17 Dose: 5 mg Admin: 10/07/18 11:57 Dose: 5 mg Admin: 10/07/18 06:05 Dose: 5 mg Admin: 10/07/18 00:16 Dose: 5 mg Admin: 10/06/18 17:30 Dose: 5 mg Naloxone HCl (Narcan) 0.2 mg IV Q2MIN PRN PRN Reason: Opiate Reversal Cyclosporine ( (Restasis) 1 Drop) 1 drop EYE-BOTH BID [facility] Last Admin: 10/07/18 11:54 Dose: Not Given Admin: 10/06/18 21:15 Dose: Not Given Levomefolate Calcium (L-Methylfolate) 15 Mg 15 mg PO DAILY [facility] Last Admin: 10/07/18 11:55 Dose: Not Given Vortioxetine 1 Tab 1 tab PO DAILY [facility] Last Admin: 10/07/18 11:56 Dose: Not Given Dextroamphetamine- Amphetamine ( Adderall Xr) 10 Mg 10 mg PO DAILY [facility] Last Admin: 10/07/18 11:52 Dose: Not Given Ondansetron HCl (Zofran) 4 mg IV Q8HR PRN PRN Reason: Nausea And Vomiting Last Admin: 10/07/18 09:54 Dose: 4 mg Admin: 10/07/18 02:00 Dose: 4 mg Admin: 10/06/18 17:46 Dose: 4 mg Oxycodone HCl (Oxycontin) 20 mg PO Q12H [facility] Last Admin: 10/07/18 17:16 Dose: 20 mg Admin: 10/07/18 04:52 Dose: 20 mg Admin: 10/06/18 17:30 Dose: 20 mg Pantoprazole Sodium (Protonix) 40 mg PO 0600 [facility] Last Admin: 10/07/18 06:05 Dose: 40 mg Propranolol HCl (Inderal) 20 mg PO TID PRN PRN Reason: anxiety Last Admin: 10/07/18 09:56 Dose: 20 mg Admin: 10/07/18 01:57 Dose: 20 mg Tiotropium [place] (Spiriva) 18 mcg INH DAILY [facility] Last Admin: 10/07/18 12:10 Dose: Not Given Tizanidine HCl (Zanaflex) 4 mg PO Q8H PRN PRN Reason: muscle spasticity Last Admin: 10/07/18 13:00 Dose: 4 mg Discontinued Medications Albuterol (Ventolin Hfa) 2 puff INH 4-6HRS [facility] Hydromorphone HCl (Dilaudid) 2 mg IV NOW ONE Stop: 10/06/18 13:57 Last Admin: 10/06/18 14:12 Dose: 2 mg Hydromorphone HCl (Dilaudid) 0.5 mg IV Q2HR PRN PRN Reason: Pain, Moderate (4-6) Last Admin: 10/06/18 21:28 Dose: 0.5 mg Admin: 10/06/18 17:30 Dose: 0.5 mg Sodium Chloride (Normal Saline 0.9%) 1,000 mls @ 1,000 mls/hr IV BOLUS ONE Stop: 10/06/18 13:38 Last Infusion: 10/06/18 14:37 Dose: 0 mls/hr Admin: 10/06/18 12:54 Dose: 1,000 mls/hr Ondansetron HCl (Zofran) 4 mg IV NOW ONE Stop: 10/06/18 12:39 Last Admin: 10/06/18 12:35 Dose: 4 mg Ondansetron HCl (Zofran) 4 mg IV NOW ONE Stop: 10/06/18 14:00 Last Admin: 10/06/18 14:11 Dose: 4 mg Pantoprazole Sodium (Protonix) 40 mg IV NOW ONE Stop: 10/06/18 15:35 Last Admin: 10/06/18 15:38 Dose: 40 mg Vital Signs - 8 hr 10/07/18 13:00 10/07/18 16:32 10/07/18 16:37 Temperature 97.8 F 97.5 F L Pulse Rate 58 L 56 L 61 Respiratory Rate 18 12 19 Blood Pressure 126/65 139/71 Pulse Oximetry 95 100 97 <Paras Brown MD - Last Filed: 10/07/18 19:20> Orders Ordered: ED Orders 10/07/18 16:27 Consult to Physician Routine 10/08/18 05:00 Basic Metabolic Panel Routine Magnesium Routine Albuterol (Ventolin Hfa) 2 puff INH RTQ4HR PRN PRN Reason: Shortness Of Breath Clonidine HCl (Catapres) 0.2 mg PO BID [facility] Last Admin: 10/07/18 09:58 Dose: 0.2 mg Admin: 10/06/18 21:15 Dose: 0.2 mg Dextrose (D50w) 25 gm IV PRN PRN; Protocol PRN Reason: Hypoglycemia Dicyclomine HCl (Bentyl) 10 mg PO QID PRN PRN Reason: Inflammation Enoxaparin Sodium (Lovenox) 40 mg SUBCUT DAILY [facility] Last Admin: 10/07/18 08:24 Dose: 40 mg Fluticasone Propionate (Flovent Hfa) 2 puff INH BID [facility] Last Admin: 10/07/18 16:32 Dose: 2 puff Admin: 10/07/18 12:10 Dose: Not Given Admin: 10/06/18 23:14 Dose: Not Given Hydromorphone HCl (Dilaudid) 0.5 mg IV Q2H PRN PRN Reason: Pain, Severe (7-10) Last Admin: 10/07/18 13:45 Dose: 0.5 mg Admin: 10/07/18 08:27 Dose: 0.5 mg Admin: 10/07/18 00:16 Dose: 0.5 mg Sodium Chloride (Normal Saline 0.9%) 1,000 mls @ 100 mls/hr IV CONT [facility] Last Admin: 10/07/18 12:56 Dose: 100 mls/hr Infusion: 10/07/18 12:56 Dose: 100 mls/hr Admin: 10/07/18 03:18 Dose: 100 mls/hr Infusion: 10/07/18 03:18 Dose: 100 mls/hr Admin: 10/06/18 17:31 Dose: 100 mls/hr Ibuprofen (Advil) 600 mg PO TID PRN PRN Reason: Headache Insulin Aspart (Novolog Flexpen) 0 unit SUBCUT ACHS [facility]; Protocol Last Admin: 10/07/18 17:18 Dose: 5 unit Admin: 10/07/18 11:41 Dose: 7 unit Insulin Glargine (Lantus Solostar (Pen)) 30 unit SUBCUT BEDTIME [facility] Last Admin: 10/06/18 21:13 Dose: 5 unit Metoclopramide HCl (Reglan) 5 mg IV Q6HR [facility] Stop: 10/08/18 07:00 Last Admin: 10/07/18 17:17 Dose: 5 mg Admin: 10/07/18 11:57 Dose: 5 mg Admin: 10/07/18 06:05 Dose: 5 mg Admin: 10/07/18 00:16 Dose: 5 mg Admin: 10/06/18 17:30 Dose: 5 mg Naloxone HCl (Narcan) 0.2 mg IV Q2MIN PRN PRN Reason: Opiate Reversal Cyclosporine ( (Restasis) 1 Drop) 1 drop EYE-BOTH BID [facility] Last Admin: 10/07/18 11:54 Dose: Not Given Admin: 10/06/18 21:15 Dose: Not Given Levomefolate Calcium (L-Methylfolate) 15 Mg 15 mg PO DAILY [facility] Last Admin: 10/07/18 11:55 Dose: Not Given Vortioxetine 1 Tab 1 tab PO DAILY [facility] Last Admin: 10/07/18 11:56 Dose: Not Given Dextroamphetamine- Amphetamine ( Adderall Xr) 10 Mg 10 mg PO DAILY [facility] Last Admin: 10/07/18 11:52 Dose: Not Given Ondansetron HCl (Zofran) 4 mg IV Q8HR PRN PRN Reason: Nausea And Vomiting Last Admin: 10/07/18 09:54 Dose: 4 mg Admin: 10/07/18 02:00 Dose: 4 mg Admin: 10/06/18 17:46 Dose: 4 mg Oxycodone HCl (Oxycontin) 20 mg PO Q12H [facility] Last Admin: 10/07/18 17:16 Dose: 20 mg Admin: 10/07/18 04:52 Dose: 20 mg Admin: 10/06/18 17:30 Dose: 20 mg Pantoprazole Sodium (Protonix) 40 mg PO 0600 [facility] Last Admin: 10/07/18 06:05 Dose: 40 mg Propranolol HCl (Inderal) 20 mg PO TID PRN PRN Reason: anxiety Last Admin: 10/07/18 09:56 Dose: 20 mg Admin: 10/07/18 01:57 Dose: 20 mg Tiotropium [place] (Spiriva) 18 mcg INH DAILY [facility] Last Admin: 10/07/18 12:10 Dose: Not Given Tizanidine HCl (Zanaflex) 4 mg PO Q8H PRN PRN Reason: muscle spasticity Last Admin: 10/07/18 13:00 Dose: 4 mg Discontinued Medications Albuterol (Ventolin Hfa) 2 puff INH 4-6HRS [facility] Hydromorphone HCl (Dilaudid) 2 mg IV NOW ONE Stop: 10/06/18 13:57 Last Admin: 10/06/18 14:12 Dose: 2 mg Hydromorphone HCl (Dilaudid) 0.5 mg IV Q2HR PRN PRN Reason: Pain, Moderate (4-6) Last Admin: 10/06/18 21:28 Dose: 0.5 mg Admin: 10/06/18 17:30 Dose: 0.5 mg Sodium Chloride (Normal Saline 0.9%) 1,000 mls @ 1,000 mls/hr IV BOLUS ONE Stop: 10/06/18 13:38 Last Infusion: 10/06/18 14:37 Dose: 0 mls/hr Admin: 10/06/18 12:54 Dose: 1,000 mls/hr Ondansetron HCl (Zofran) 4 mg IV NOW ONE Stop: 10/06/18 12:39 Last Admin: 10/06/18 12:35 Dose: 4 mg Ondansetron HCl (Zofran) 4 mg IV NOW ONE Stop: 10/06/18 14:00 Last Admin: 10/06/18 14:11 Dose: 4 mg Pantoprazole Sodium (Protonix) 40 mg IV NOW ONE Stop: 10/06/18 15:35 Last Admin: 10/06/18 15:38 Dose: 40 mg Vital Signs - 8 hr 10/07/18 13:00 10/07/18 16:32 10/07/18 16:37 Temperature 97.8 F 97.5 F L Pulse Rate 58 L 56 L 61 Respiratory Rate 18 12 19 Blood Pressure 126/65 139/71 Pulse Oximetry 95 100 97 MDM - Abdominal Pain <Jimena Rosario PA-C - Last Filed: 10/06/18 21:17> Lab Data Attestation: I reviewed the patient's lab results. Result diagrams: 10/07/18 05:23 10/07/18 05:23 Lab Results 10/06/18 10/06/18 10/06/18 Range/Units 12:25 12:25 12:25 WBC 8.6 (4.5-11.0) X10^3/uL RBC 4.49 (4.0-5.2) X10^6/uL Hgb 13.8 (12.0-16.0) g/dL Hct 40.3 (36-46) % MCV 89.7 (80-100) fL MCH 30.7 (26-34) PG MCHC 34.2 (30-36) % RDW 13.2 (11.6-14.8) % Plt Count 262 (150-400) X10^3/uL Neut % (Auto) 67.1 (50-75) % Lymph % (Auto) 26.1 (25-40) % Alcorn % (Auto) 3.8 (3-14) % Eos % (Auto) 2.1 (2-4) % Baso % (Auto) 0.9 (0-2) % Neut # (Auto) 5800 (0878-7512) /uL Lymph # (Auto) 2200 (6393-1441) /uL Alcorn # (Auto) 300 (0-900) /uL Eos # (Auto) 200 (0-450) /uL Baso # (Auto) 100 (0-100) /uL PT 10.6 (10.1-12.7) SECONDS INR 0.9 (0.9-1.3) APTT 34 (26.4-36.2) SECONDS Sodium 136 L (137-145) mmol/L Potassium 3.8 (3.4-5.1) mmol/L Chloride 98 (98-107) mmol/L Carbon Dioxide 25 (22-32) mmol/L BUN 16 (7-17) mg/dL Creatinine 0.80 (0.52-1.04) mg/dL Estimated GFR > 60.0 (>60) mL/min BUN/Creatinine Ratio 20.0 (6-22) Glucose 353 H (70-100) mg/dL Hemoglobin A1c (4.0-6.0) % Calcium 9.8 (8.4-10.2) mg/dL Magnesium (1.6-2.3) mg/dL Total Bilirubin 0.5 (0.2-1.3) mg/dL AST 67 H (14-36) IU/L ALT 62 H (9-52) IU/L Alkaline Phosphatase 341 H (38-126) U/L Troponin I (0.01-0.034) ng/mL Total Protein 8.6 H (6.3-8.2) g/dL Albumin 4.5 (3.5-5.0) g/dL Globulin 4.1 (1.7-4.1) g/dL Albumin/Globulin Ratio 1.1 (1.0-2.8) Amylase (30-110) U/L Lipase (23-300) U/L TSH (0.47-4.68) uIU/mL 10/06/18 10/06/18 10/06/18 Range/Units 12:25 12:25 12:25 WBC (4.5-11.0) X10^3/uL RBC (4.0-5.2) X10^6/uL Hgb (12.0-16.0) g/dL Hct (36-46) % MCV (80-100) fL MCH (26-34) PG MCHC (30-36) % RDW (11.6-14.8) % Plt Count (150-400) X10^3/uL Neut % (Auto) (50-75) % Lymph % (Auto) (25-40) % Alcorn % (Auto) (3-14) % Eos % (Auto) (2-4) % Baso % (Auto) (0-2) % Neut # (Auto) (2483-8207) /uL Lymph # (Auto) (7350-5748) /uL Alcorn # (Auto) (0-900) /uL Eos # (Auto) (0-450) /uL Baso # (Auto) (0-100) /uL PT (10.1-12.7) SECONDS INR (0.9-1.3) APTT (26.4-36.2) SECONDS Sodium (137-145) mmol/L Potassium (3.4-5.1) mmol/L Chloride (98-107) mmol/L Carbon Dioxide (22-32) mmol/L BUN (7-17) mg/dL Creatinine (0.52-1.04) mg/dL Estimated GFR (>60) mL/min BUN/Creatinine Ratio (6-22) Glucose (70-100) mg/dL Hemoglobin A1c 13.1 H (4.0-6.0) % Calcium (8.4-10.2) mg/dL Magnesium (1.6-2.3) mg/dL Total Bilirubin (0.2-1.3) mg/dL AST (14-36) IU/L ALT (9-52) IU/L Alkaline Phosphatase (38-126) U/L Troponin I < 0.012 (0.01-0.034) ng/mL Total Protein (6.3-8.2) g/dL Albumin (3.5-5.0) g/dL Globulin (1.7-4.1) g/dL Albumin/Globulin Ratio (1.0-2.8) Amylase 51 (30-110) U/L Lipase 221 (23-300) U/L TSH (0.47-4.68) uIU/mL 10/07/18 10/07/18 10/07/18 Range/Units 05:23 05:23 05:23 WBC 9.6 (4.5-11.0) X10^3/uL RBC 3.90 L (4.0-5.2) X10^6/uL Hgb 11.8 L (12.0-16.0) g/dL Hct 34.9 L (36-46) % MCV 89.6 (80-100) fL MCH 30.4 (26-34) PG MCHC 33.9 (30-36) % RDW 13.3 (11.6-14.8) % Plt Count 224 (150-400) X10^3/uL Neut % (Auto) 47.8 L (50-75) % Lymph % (Auto) 44.9 H (25-40) % Alcorn % (Auto) 4.3 (3-14) % Eos % (Auto) 2.4 (2-4) % Baso % (Auto) 0.6 (0-2) % Neut # (Auto) 4600 (9213-0466) /uL Lymph # (Auto) 4300 (9846-4938) /uL Alcorn # (Auto) 400 (0-900) /uL Eos # (Auto) 200 (0-450) /uL Baso # (Auto) 100 (0-100) /uL PT (10.1-12.7) SECONDS INR (0.9-1.3) APTT (26.4-36.2) SECONDS Sodium 138 (137-145) mmol/L Potassium 4.4 (3.4-5.1) mmol/L Chloride 107 (98-107) mmol/L Carbon Dioxide 24 (22-32) mmol/L BUN 9 (7-17) mg/dL Creatinine 0.80 (0.52-1.04) mg/dL Estimated GFR > 60.0 (>60) mL/min BUN/Creatinine Ratio 11.3 (6-22) Glucose 195 H D (70-100) mg/dL Hemoglobin A1c (4.0-6.0) % Calcium 8.7 (8.4-10.2) mg/dL Magnesium 2.1 (1.6-2.3) mg/dL Total Bilirubin 0.5 (0.2-1.3) mg/dL AST 70 H (14-36) IU/L ALT 66 H (9-52) IU/L Alkaline Phosphatase 275 H (38-126) U/L Troponin I (0.01-0.034) ng/mL Total Protein 7.0 (6.3-8.2) g/dL Albumin 3.5 (3.5-5.0) g/dL Globulin 3.5 (1.7-4.1) g/dL Albumin/Globulin Ratio 1.0 (1.0-2.8) Amylase (30-110) U/L Lipase (23-300) U/L TSH 1.42 (0.47-4.68) uIU/mL Point of care testing: Point of Care Testing Glucose POC [address] scan - abdomen: Radiologist's impression: [address] [address] [address] Scan Report Signed Patient: Keila Godfrey RMR#: [id number] : 1965Acct:[id number] Age/Sex: 53 / FDate of Service: 10/06/18 Loc: ED Accession Number: [id number] Procedure: CT abdomen pelvis w con Ordering Provider: Jimena Rosario P.A-C PROCEDURE: CT ABDOMEN PELVIS W CON INDICATIONS: pain, vomiting bile/blood TECHNIQUE: After the administration of intravenous contrast, 5 mm thick sections acquired from the diaphragm to the symphysis. 5 mm coronal and sagittal reformats were acquired. For radiation dose reduction, the following was used: automated exposure control, adjustment of mA and/or kV according to patient size. COMPARISON: None. FINDINGS: Image quality: Excellent. ABDOMEN: Lung bases: Lung bases are clear. Heart size is normal. Moderate hiatal hernia. Solid organs: Liver is normal in size and enhancement. Persistent diffuse hypoattenuation of the liver suggesting hepatic steatosis. Minimal nodular liver contour, unchanged. Gallbladder is surgically absent with persistent prominence of the common bile duct. No intrahepatic biliary ductal system dilatation. Pancreas enhances normally. Stable appearance of minimal prominence of the main pancreatic duct. Spleen is normal in size and enhancement. No adrenal nodules. Kidneys demonstrate normal size and enhancement, without hydronephrosis. Peritoneum and bowel: Bowel loops demonstrate normal wall thickness and caliber. No free fluid or air. Moderate fecal load seen throughout the colon. Nodes and vessels: No retroperitoneal or mesenteric adenopathy by size cr iteria. Aorta and inferior vena cava are normal in size. Miscellaneous: No ventral hernias. PELVIS: Genitourinary: Bladder wall thickness is normal. Miscellaneous: No inguinal hernias or adenopathy. Bones: No suspicious bony lesions. No acute vertebral body compression fra ctures. Multilevel lumbar spondylosis, stable. IMPRESSION: 1. Stable CT evaluation abdomen and pelvis without acute abnormalities. 2. Status post cholecystectomy with stable dilatation of the common bile duct and minimal prominence of the main pancreatic duct. Findings are likely related to post cholecystectomy changes. 3. Moderate size hiatal hernia. 4. Hepatic steatosis. Dictated by: Blayne Rodriguez M.D. on 10/06/2018 at 14:57 Approved by: Blayne Rodriguez M.D. on 10/06/2018 at 15:06 <Paras Brown MD - Last Filed: 10/07/18 19:20> Lab Data Lab Results 10/06/18 10/06/18 10/06/18 Range/Units 12:25 12:25 12:25 WBC 8.6 (4.5-11.0) X10^3/uL RBC 4.49 (4.0-5.2) X10^6/uL Hgb 13.8 (12.0-16.0) g/dL Hct 40.3 (36-46) % MCV 89.7 (80-100) fL MCH 30.7 (26-34) PG MCHC 34.2 (30-36) % RDW 13.2 (11.6-14.8) % Plt Count 262 (150-400) X10^3/uL Neut % (Auto) 67.1 (50-75) % Lymph % (Auto) 26.1 (25-40) % Alcorn % (Auto) 3.8 (3-14) % Eos % (Auto) 2.1 (2-4) % Baso % (Auto) 0.9 (0-2) % Neut # (Auto) 5800 (4441-7376) /uL Lymph # (Auto) 2200 (8424-9048) /uL Alcorn # (Auto) 300 (0-900) /uL Eos # (Auto) 200 (0-450) /uL Baso # (Auto) 100 (0-100) /uL PT 10.6 (10.1-12.7) SECONDS INR 0.9 (0.9-1.3) APTT 34 (26.4-36.2) SECONDS Sodium 136 L (137-145) mmol/L Potassium 3.8 (3.4-5.1) mmol/L Chloride 98 (98-107) mmol/L Carbon Dioxide 25 (22-32) mmol/L BUN 16 (7-17) mg/dL Creatinine 0.80 (0.52-1.04) mg/dL Estimated GFR > 60.0 (>60) mL/min BUN/Creatinine Ratio 20.0 (6-22) Glucose 353 H (70-100) mg/dL Hemoglobin A1c (4.0-6.0) % Calcium 9.8 (8.4-10.2) mg/dL Magnesium (1.6-2.3) mg/dL Total Bilirubin 0.5 (0.2-1.3) mg/dL AST 67 H (14-36) IU/L ALT 62 H (9-52) IU/L Alkaline Phosphatase 341 H (38-126) U/L Troponin I (0.01-0.034) ng/mL Total Protein 8.6 H (6.3-8.2) g/dL Albumin 4.5 (3.5-5.0) g/dL Globulin 4.1 (1.7-4.1) g/dL Albumin/Globulin Ratio 1.1 (1.0-2.8) Amylase (30-110) U/L Lipase (23-300) U/L TSH (0.47-4.68) uIU/mL 10/06/18 10/06/18 10/06/18 Range/Units 12:25 12:25 12:25 WBC (4.5-11.0) X10^3/uL RBC (4.0-5.2) X10^6/uL Hgb (12.0-16.0) g/dL Hct (36-46) % MCV (80-100) fL MCH (26-34) PG MCHC (30-36) % RDW (11.6-14.8) % Plt Count (150-400) X10^3/uL Neut % (Auto) (50-75) % Lymph % (Auto) (25-40) % Alcorn % (Auto) (3-14) % Eos % (Auto) (2-4) % Baso % (Auto) (0-2) % Neut # (Auto) (7960-6864) /uL Lymph # (Auto) (1712-3381) /uL Alcorn # (Auto) (0-900) /uL Eos # (Auto) (0-450) /uL Baso # (Auto) (0-100) /uL PT (10.1-12.7) SECONDS INR (0.9-1.3) APTT (26.4-36.2) SECONDS Sodium (137-145) mmol/L Potassium (3.4-5.1) mmol/L Chloride (98-107) mmol/L Carbon Dioxide (22-32) mmol/L BUN (7-17) mg/dL Creatinine (0.52-1.04) mg/dL Estimated GFR (>60) mL/min BUN/Creatinine Ratio (6-22) Glucose (70-100) mg/dL Hemoglobin A1c 13.1 H (4.0-6.0) % Calcium (8.4-10.2) mg/dL Magnesium (1.6-2.3) mg/dL Total Bilirubin (0.2-1.3) mg/dL AST (14-36) IU/L ALT (9-52) IU/L Alkaline Phosphatase (38-126) U/L Troponin I < 0.012 (0.01-0.034) ng/mL Total Protein (6.3-8.2) g/dL Albumin (3.5-5.0) g/dL Globulin (1.7-4.1) g/dL Albumin/Globulin Ratio (1.0-2.8) Amylase 51 (30-110) U/L Lipase 221 (23-300) U/L TSH (0.47-4.68) uIU/mL 10/07/18 10/07/18 10/07/18 Range/Units 05:23 05:23 05:23 WBC 9.6 (4.5-11.0) X10^3/uL RBC 3.90 L (4.0-5.2) X10^6/uL Hgb 11.8 L (12.0-16.0) g/dL Hct 34.9 L (36-46) % MCV 89.6 (80-100) fL MCH 30.4 (26-34) PG MCHC 33.9 (30-36) % RDW 13.3 (11.6-14.8) % Plt Count 224 (150-400) X10^3/uL Neut % (Auto) 47.8 L (50-75) % Lymph % (Auto) 44.9 H (25-40) % Alcorn % (Auto) 4.3 (3-14) % Eos % (Auto) 2.4 (2-4) % Baso % (Auto) 0.6 (0-2) % Neut # (Auto) 4600 (5407-4074) /uL Lymph # (Auto) 4300 (8827-6107) /uL Alcorn # (Auto) 400 (0-900) /uL Eos # (Auto) 200 (0-450) /uL Baso # (Auto) 100 (0-100) /uL PT (10.1-12.7) SECONDS INR (0.9-1.3) APTT (26.4-36.2) SECONDS Sodium 138 (137-145) mmol/L Potassium 4.4 (3.4-5.1) mmol/L Chloride 107 (98-107) mmol/L Carbon Dioxide 24 (22-32) mmol/L BUN 9 (7-17) mg/dL Creatinine 0.80 (0.52-1.04) mg/dL Estimated GFR > 60.0 (>60) mL/min BUN/Creatinine Ratio 11.3 (6-22) Glucose 195 H D (70-100) mg/dL Hemoglobin A1c (4.0-6.0) % Calcium 8.7 (8.4-10.2) mg/dL Magnesium 2.1 (1.6-2.3) mg/dL Total Bilirubin 0.5 (0.2-1.3) mg/dL AST 70 H (14-36) IU/L ALT 66 H (9-52) IU/L Alkaline Phosphatase 275 H (38-126) U/L Troponin I (0.01-0.034) ng/mL Total Protein 7.0 (6.3-8.2) g/dL Albumin 3.5 (3.5-5.0) g/dL Globulin 3.5 (1.7-4.1) g/dL Albumin/Globulin Ratio 1.0 (1.0-2.8) Amylase (30-110) U/L Lipase (23-300) U/L TSH 1.42 (0.47-4.68) uIU/mL Point of care testing: Point of Care Testing Glucose POC 270 Discharge Plan Departure Patient Disposition: Admitted as Observation Clinical Impression: Abdominal pain Qualifiers: Abdominal location: generalized Qualified Code(s): R10.84 - Generalized abdominal pain Vomiting Qualifiers: Vomiting type: unspecified Vomiting Intractability: intractable Nausea presence: with nausea Qualified Code(s): R11.2 - Nausea with vomiting, unspecified Discharge Date/Time: 10/06/18 16:52 Interventions: ED Discharge Assessment Last Done: 10/06/18 16:50 Admit Date/Time: 10/06/18 16:11 Admit Provider: Bibiana Ibanez <Paras Brown MD - Last Filed: 10/07/18 19:20> Cosign ED Attending Luis Enrique Attestation: I was working in the ER at the time this patient's care. the patient's care was reviewed with the provider prior to disposition.I agree with the assessment and disposition.
[2018-10-06] MEDS: HYDROMORPHONE 1 MG INJ 2 MG IV (14:12)
[2018-10-06 14:33] VITALS: BP 154/59; PULSE 78; RESP 18; O2SAT 98
[2018-10-06] MEDS: PANTOPRAZOLE 40 MG VIAL IV (15:38)
--- NOTE | 2018-10-06 15:46 | PC.NURSE ---
Pt dry heaving when I brought food and drink for a PO challenge.
[2018-10-06 16:07] VITALS: BP 147/87; PULSE 85; RESP 18; O2SAT 99
[2018-10-06 16:31] VITALS: BMI 26.6
--- NOTE | 2018-10-06 16:34 | P.HP_ITS ---
History of Present Illness Date Patient Seen: 10/06/18 Time Patient Seen: 16:37 Chief complaint: THROWING UP BILE/BLOOD,ABD PAIN Narrative: This is a 53-year-old female, who looks much older than her physiologic age, presenting with probable diabetic gastroparesis symptoms. She describes 1.5 weeks of progressively worsening abdominal pain with nausea and ?dry heaves?. She insists that when she eats she does not vomit but she cannot recall eating anything for the last 3 days because ?I can not keep it down.? She reports that her last A1c a few weeks ago was above 14 and that her blood sugars are frequently above 600, never lower than 300s. She is on a Lantus and Humalog regimen that is managed by endocrinology, with no recent increases in dosing despite reported out of control sugars at home. She will be following up later this week with endocrinology in [place]. Her current dose is Lantus at HS 25-33 units and Humalog 44 units with each meal. She has never had ga stroparesis. She has had her gallbladder out and has had pancreatitis in the past but CT scan and laboratory testing at this time do not show that to be present. She also has a history of esophageal strictures requiring dilation, but again those symptoms are different. She also describes chronic heat intolerance, dark urine and bilateral chest pain for the last week. She describes hematemesis at home but no vomiting has been observed in the hospital so far. About 2 weeks ago the [facility] in [place] changed her from morphine long-acting to oxycodone 20 mg twice a day due to progressive lack of effect from the morphine. She also takes Dilaudid 4 mg as needed. She appears to be in withdrawal with scratch madison throughout and fidgeting along with complaints of overheating. She insists that the symptoms are not new, and are present when she is able to take her opiates and keep them down. She tells me that she can go for 3 days without her pain medicine without any withdrawal symptoms. She takes the high-dose opiates for chronic pain of spinal stenosis, neck pain, arm pain related to sarcoidosis. Patient History Medical History ADHD (attention deficit hyperactivity disorder) (Chronic) Anxiety (Chronic) COPD (chronic obstructive pulmonary disease) (Chronic) Cataract (Chronic) Chronic cough (Chronic) Chronic headaches (Chronic) Depression (Chronic) Diabetes mellitus (Chronic 2003) Fibromyalgia (Chronic) GERD (gastroesophageal reflux disease) (Chronic 1980) Hyperlipidemia (Chronic 1991) Hypertension (Chronic 1991) Lumbar spine pain (Chronic) PTSD (post-traumatic stress disorder) (Chronic) Sarcoidosis (Chronic) Scoliosis (Chronic) Shoulder pain (Chronic) Spinal stenosis (Chronic) Cervical cancer (Resolved 1991) Chicken pox (Resolved) Esophageal stricture (Resolved 09/2017) History of blood transfusion (Resolved ~07/1981) Kidney stones (Resolved) Pancreatitis (Resolved 2010) Surgical History Status post cataract extraction (Acute) Anesthesia (Resolved) History of tonsillectomy (Resolved 1967) S/P dilatation of esophageal stricture (Resolved 09/2017) Status post delivery (Resolved 05/02/85) Status post cholecystectomy (Resolved 02/1985) Status post hysterectomy (Resolved 1986) Family History Brother Age: 61 Diabetes mellitus Child Age: 37 Asthma Child Heart defect Father Age: 81 Hypertension Cirrhosis of liver Mother Heart disease High cholesterol Amyloidosis Sister Age: 58 Diabetes mellitus Heart disease Sister Heart disease Social History Smoking Status: Former smoker alcohol intake: current Family & Social History Family History Brother Age: 61 Diabetes mellitus Child Age: 37 Asthma Child Heart defect Father Age: 81 Hypertension Cirrhosis of liver Mother Heart disease High cholesterol Amyloidosis Sister Age: 58 Diabetes mellitus Heart disease Sister Heart disease Tobacco & Substance use: Smoking Status Former smoker alcohol intake current alcohol intake frequency 0-2 drinks per day Comment: She stopped smoking 6 years ago. She tells me that she does not drink alcohol at all. She tried marijuana edibles months ago without benefit. She does not use illicit drugs or smoke marijuana. 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 Her is here today. Meds Home Medications Medication Instructions Recorded Confirmed Type aspirin 81 mg PO QDAY #30 tab 04/20/16 10/06/18 Rx pantoprazole [Protonix] 40 mg PO QDAY #90 tab 09/14/16 10/06/18 Rx epinephrine 0.3 mg IM PRN PRN #0 05/11/17 10/06/18 History levomefolate calcium 15 mg PO QDAY #90 cap 07/12/17 10/06/18 Rx [L-Methylfolate] naproxen [Naprosyn] 500 mg PO BID PRN #60 tab 08/17/17 10/06/18 Rx Spiriva with HandiHaler 18 mcg INH QDAY #30 cap 08/23/17 10/06/18 Rx Flovent HFA 2 puff INH BID #1 inh 09/04/17 10/06/18 Rx ketoconazole 1 nathan TOPICAL BID #30 gm 09/11/17 10/06/18 Rx dicyclomine 10 mg PO QIDP PRN #0 10/05/17 10/06/18 History Ventolin HFA 1 - 2 puff INH 4-6HRS #1 inh 10/18/17 10/06/18 Rx Restasis 1 drp OPHTH BID #0 11/09/17 10/06/18 History hydromorphone 4 mg PO PRN PRN #0 11/09/17 10/06/18 History ondansetron [Zofran ODT] 4 mg SUBLINGUAL Q6HP PRN #30 odt 11/12/17 10/06/18 Rx 1 tab PO DAILY 01/18/18 10/06/18 History vitamin,calcium,pfxkvmij-lbpa-uhank acid tablet insulin glargine (U-100) 100 30 unit SUBCUT HS #1 ml 05/31/18 10/06/18 Rx unit/mL (3 mL) subcutaneous pen insulin lispro (U- 100) 100 10 - 15 unit SUBCUT ACHS #1 syr 05/31/18 10/06/18 Rx unit/mL subcutaneous pen clonidine HCl 0.2 mg tablet 0.2 mg PO BID #60 tab 08/13/18 10/06/18 Rx propranolol 20 mg tablet 20 mg PO TID PRN #10 tab 08/13/18 10/06/18 Rx tizanidine 4 mg tablet 4 mg PO Q8H PRN #90 tab 08/27/18 10/06/18 Rx dextroamphetamine-amphetamine ER 10 mg PO QAM #30 cap 08/29/18 10/06/18 Rx 10 mg 24hr capsule,extend release CMP Testosterone 0.2% See Rx Instructions .ROUTE 09/24/18 10/06/18 Rx .COMPLEX #30 gram nystatin-triamcinolone 100,000 See Rx Instructions TOP BID #30 09/24/18 10/06/18 Rx unit/gram-0.1 % topical ointment gram estradiol 0.01% (0.1 mg/gram) See Rx Instructions VAG DAILY 09/25/18 10/06/18 Rx vaginal cream #42.5 gram glucagon (human recombinant) 1 mg SUBCUT Q20M PRN 10/06/18 10/06/18 History [Glucagon Emergency Kit (human)] oxycodone [OxyContin] 20 mg PO Q12H 10/06/18 10/06/18 History vortioxetine [Trintellix] 1 tab PO DAILY 10/06/18 10/06/18 History Allergies Allergy/AdvReac Type Severity Reaction Status Date / Time venom-honey bee Allergy Severe SWOLLEN Verified 10/06/18 12:09 [bee venom (honey bee)] TONGUE AND THROAT BUT NOT ANAPHALAXIS pregabalin [From LYRICA] Allergy Intermediate 'WELTS ON Verified 10/06/18 12:09 MY BODY' cyclobenzaprine Allergy Unknown Verified 10/06/18 12:09 [From FLEXERIL] gabapentin Allergy Unknown MY Verified 10/06/18 12:09 THOUGHT IT MADE ME ACT WERID hydroxyzine AdvReac Unknown PT STATES Verified 10/06/18 12:09 EYES DRIES ME UP venlafaxine AdvReac Unknown MADE MY Verified 10/06/18 12:09 BLOOD PRESSURE HIGH trazodone AdvReac heart Verified 10/06/18 12:09 palpatations MALIN NICOLAS Allergy Severe SWELLING Uncoded 10/06/18 12:09 FACE AND THROAT LACTOSE INTOLERANT AdvReac Unknown Uncoded 10/06/18 12:09 Review of Systems Review of Systems Positive for anorexia, progressive weight loss, out of control blood sugars, persistent nausea and vomiting, abdominal pain and weakness. Also positive for chest pain. Negative for fevers, chills, sweats, headache, seizures, bleeding, rashes, dysuria, diarrhea, new allergies, trouble walking, trouble talking, coughing, sore throat. All systems reviewed & are unremarkable except as noted in HPI and below Exam Vital Signs (past 8 hours): - 10/06/18 12:10 10/06/18 14:33 10/06/18 16:07 Temperature 98.1 F Pulse Rate 101 H 78 85 Respiratory Rate 20 18 18 Blood Pressure 190/102 H Blood Pressure [Left Arm] 154/59 H 147/87 H Pulse Oximetry 99 98 99 Oxygen Delivery Method Room Air Narrative Exam Narrative: Alert and oriented x3. Interacting normally with staff and with her . She is in moderate distress from abdominal pain and nausea. Pupils are equally round and reactive to light and accommodation. Extraocular muscles are intact. Sclerae are pink and nonicteric. She has mild light a voidance. No lymph nodes are felt head, neck, supraclavicular area. There is no thyromegaly. JVD is less than 6 cm and no carotid bruits are heard. Throat looks normal. Heart is regular rate and rhythm without murmur. Lungs are clear to auscultation bilaterally. Abdomen is soft moderately obese, with diffuse tenderness across the upper abdomen radiating around to the left flank. There are no masses and organomegaly. Bowel sounds are positive. Neuro exam. Cranial nerves 2-12 tested intact. Motor function is 4/5 throughout. Reflexes are normal. No lateralizing deficits. Skin no rash or jaundice but she does have diffuse scratches all over her legs. Extremities no ankle edema she has atrophied calves, and generally short limbs. Objective Labs Result Diagrams: 10/06/18 12:25 10/06/18 12:25 Labs: Laboratory Results - last 24 hr 10/06/18 10/06/18 10/06/18 12:25 12:25 12:25 WBC 8.6 RBC 4.49 Hgb 13.8 Hct 40.3 MCV 89.7 MCH 30.7 MCHC 34.2 RDW 13.2 Plt Count 262 Neut % (Auto) 67.1 Lymph % (Auto) 26.1 Isabela % (Auto) 3.8 Eos % (Auto) 2.1 Baso % (Auto) 0.9 Neut # (Auto) 5800 Lymph # (Auto) 2200 Isabela # (Auto) 300 Eos # (Auto) 200 Baso # (Auto) 100 PT 10.6 INR 0.9 APTT 34 Sodium 136 L Potassium 3.8 Chloride 98 Carbon Dioxide 25 BUN 16 Creatinine 0.80 Estimated GFR > 60.0 BUN/Creatinine Ratio 20.0 Glucose 353 H Calcium 9.8 Total Bilirubin 0.5 AST 67 H ALT 62 H Alkaline Phosphatase 341 H Total Protein 8.6 H Albumin 4.5 Globulin 4.1 Albumin/Globulin Ratio 1.1 Amylase Lipase 10/06/18 12:25 WBC RBC Hgb Hct MCV MCH MCHC RDW Plt Count Neut % (Auto) Lymph % (Auto) Isabela % (Auto) Eos % (Auto) Baso % (Auto) Neut # (Auto) Lymph # (Auto) Isabela # (Auto) Eos # (Auto) Baso # (Auto) PT INR APTT Sodium Potassium Chloride Carbon Dioxide BUN Creatinine Estimated GFR BUN/Creatinine Ratio Glucose Calcium Total Bilirubin AST ALT Alkaline Phosphatase Total Protein Albumin Globulin Albumin/Globulin Ratio Amylase 51 Lipase 221 Assessment & Plan Assessment & Plan narrative: 1. Diabetic gastroparesis -the combination of the dac-fv-[id number] diabetes mellitus, with blood sugars above 600 consistently, and the progressively worsening abdominal pain/emesis are entirely consistent with gastroparesis. There are a number of other factors that could explain her symptoms including viral gastroenteritis, duodenitis etc. She may need EGD to rule out some of those. In the meantime will put her on Reglan routinely IV and try to optimize her blood sugar control. , eryt hromycin and other miscellaneous agents are occasionally tried, none of which work very well or very quickly. Optimizing blood sugar control is the main target as that has the most lasting effect in this condition. 2. Abdominal pain and vomiting -there are no signs of pancreatitis or bowel obstruction on CT scan and laboratory testing. This makes gastroenteritis/gastroparesis quite likely as t he cause. We should also consider cardiac causes and check troponin/EKG. 3. Type 2 diabetes mellitus We will continue her Lantus and add correctional scale when needed. She will begin clear liquids in the morning and will support her with dextrose IV if needed. 4. Chronic pain with opiate dependency -Continue Oxycodone and use IV Dilaudid cautiously -she appears to be unable to absorb/retain her medication at this time causing the need for parenteral opiates. 5. History of sarcoidosis 6. Spinal stenosis/Fibromyalgia -Continue Oxycodone and use IV Dilaudid cautiously -she appears to be unable to absorb/retain her medication at this time causing the need for parenteral opiates. 7. Anxiety/ADHD -continue Trintellix and Adderall 8. COPD -continue Spiriva, albuterol, Flovent.
[2018-10-06 16:53] LABS: Hemoglobin A1C% w Est Avg Glu 13.1 % (4.0-6.0)
[2018-10-06 17:21] VITALS: BP 180/105; PULSE 82; RESP 20; TEMP 37.1; O2SAT 100
[2018-10-06] MEDS: OXYCODONE ER 20 MG TAB PO (17:30)
[2018-10-06] MEDS: METOCLOPRAMIDE 10 MG/2 ML INJ 5 MG IV (17:30)
[2018-10-06] MEDS: HYDROMORPHONE 1 MG INJ 0.5 MG IV ×2 (17:30→21:28)
[2018-10-06] MEDS: SODIUM CHLORIDE 0.9% 1,000 ML 100 ML IV (17:31)
[2018-10-06 19:27] LABS: Troponin I < 0.012 ng/mL (0.01-0.034)
[2018-10-06 20:40] VITALS: BP 157/85; PULSE 77; RESP 18; TEMP 36.6; O2SAT 99
[2018-10-06] MEDS: INSULIN GLARGINE 100 UNIT/ML 3ML PEN 30 UNIT SUBCUT (21:13)
[2018-10-06] MEDS: cloNIDine 0.1 MG TABLET 0.2 MG PO (21:15)
[2018-10-06 23:30] VITALS: BP 142/91; PULSE 74; RESP 16; TEMP 37.1; O2SAT 100
[2018-10-07] VITALS (9 sets, daily range): BP systolic 114–162; BP diastolic 65–93; PULSE 56–81; RESP 12–20; TEMP 36.4–36.6; O2SAT 95–100
[2018-10-07] MEDS: HYDROMORPHONE 0.5 MG INJ IV ×4 (00:16→19:37)
[2018-10-07] MEDS: METOCLOPRAMIDE 10 MG/2 ML INJ 5 MG IV ×4 (00:16→17:17)
--- NOTE | 2018-10-07 00:40 | PC.NURSE ---
Addendum entered by Zakia Polanco R.N. 10/07/18 02:02: Now states she is starting to have dry heaves; medicated with Zofran. Original Note: Addendum entered by Zakia Polanco R.N. 10/07/18 01:58: Complains of feeling restless/anxious and unable to get to sleep. Medicated with Propranolol after checking BP which was 151/92 Original Note: Patient is alert and oriented. Breath sounds with short expiratory phase due to COPD and is very diminished in right LL but with RA sat of 100%. HRR with elevated BP of 142/91. Complains of nausea; medicated with scheduled Reglan. BT present and abdomen is soft. Complains of 7/10 upper abdominal pain radiating around to left back; medicated with IV Dilaudid. Independent with bed mobility. Up to bathroom with walker and SBA due to generalized weakness. Reports multiple falls in past 3 months so fall risk score is high and bed alarm is activated. YAMILETH stockings applied at shift change.
[2018-10-07] MEDS: PROPRANOLOL 10 MG TABLET 20 MG PO ×2 (01:57→09:56)
[2018-10-07] MEDS: ONDANSETRON 4 MG/2 ML INJ IV ×2 (02:00→09:54)
[2018-10-07] MEDS: SODIUM CHLORIDE 0.9% 1,000 ML 100 ML IV ×2 (03:18→12:56)
[2018-10-07] MEDS: OXYCODONE ER 20 MG TAB PO ×2 (04:52→17:16)
[2018-10-07 05:56] LABS: Add Manual Diff / Slide Review NO; Basophils Absolute Auto 100 /uL (0-100); Basophils Percent Auto 0.6 % (0-2); Eosinophils Absolute Auto 200 /uL (0-450); Eosinophils Percent Auto 2.4 % (2-4); Hematocrit 34.9 % (36-46); Hemoglobin 11.8 g/dL (12.0-16.0); Lymphocytes Absolute Auto 4300 /uL (1100-4500); Lymphocytes Percent Auto 44.9 % (25-40); Mean Corpuscular HGB Conc 33.9 % (30-36); Mean Corpuscular Hemoglobin 30.4 PG (26-34); Mean Corpuscular Volume 89.6 fL (80-100); Monocytes Absolute Auto 400 /uL (0-900); Monocytes Percent Auto 4.3 % (3-14); Neutrophils Absolute Auto 4600 /uL (1500-7000); Neutrophils Percent Auto 47.8 % (50-75); Platelet Count 224 X10^3/uL (150-400); Red Cell Distribution Width 13.3 % (11.6-14.8); White Blood Cell Count 9.6 X10^3/uL (4.5-11.0)
[2018-10-07 06:03] LABS: Alanine Aminotransferase 66 IU/L (9-52); Albumin 3.5 g/dL (3.5-5.0); Alkaline Phosphatase 275 U/L (38-126); Aspartate Aminotransferase 70 IU/L (14-36); BUN Creatinine Ratio 11.3 (6-22); Bilirubin Total 0.5 mg/dL (0.2-1.3); Blood Urea Nitrogen 9 mg/dL (7-17); Calcium 8.7 mg/dL (8.4-10.2); Carbon Dioxide 24 mmol/L (22-32); Chloride 107 mmol/L (98-107); Estimated Glomerular Filt Rate > 60.0 mL/min (>60); Globulin 3.5 g/dL (1.7-4.1); Glucose 195 mg/dL (70-100); HEMOLYSIS < 15 (0-50); Magnesium 2.1 mg/dL (1.6-2.3); Potassium 4.4 mmol/L (3.4-5.1); Sodium 138 mmol/L (137-145)
[2018-10-07] MEDS: PANTOPRAZOLE 40 MG TABLET PO (06:05)
[2018-10-07 06:56] LABS: Thyroid Stimulating Hormone 1.42 uIU/mL (0.47-4.68)
--- NOTE | 2018-10-07 07:47 | RT ---
0747 Patient is not ready to take her inhalers at this time. She is sick to her stomach. She said she would have the nurse call us when she is ready. We will also check back on her later this morning.
[2018-10-07] MEDS: ENOXAPARIN 40 MG/0.4 ML SYRINGE SUBCUT (08:24)
[2018-10-07] MEDS: cloNIDine 0.1 MG TABLET 0.2 MG PO ×2 (09:58→21:44)
[2018-10-07] MEDS: INSULIN ASPART 100 UNIT/ML INSULN PEN SUBCUT ×2 (11:41→17:18)
--- NOTE | 2018-10-07 12:10 | RT ---
1210 A second attempt was made to administer inhalers. Patient states she is still not feeling up to it. Will try again with the evening dose.
[2018-10-07] MEDS: TIZANIDINE 4 MG TABLET PO (13:00)
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
--- NOTE | 2018-10-07 16:29 | PM.PN.1 ---
Subjective Date Patient Seen: 10/07/18 Interval history: Patient is 53-year-old female with uncontrolled diabetes presented with 2 week history of upper abdominal pain with intractable nausea and vomiting. Noted an episode of hematemesis at home. Patient states she is having a lot of dry heaves with vomiting bile and not able to eat much. 1. Intractable abdominal pain and vomiting -lipase normal, CT abdomen and pelvis unremarkable -differential includes peptic ulcer disease, duodenitis, esophagitis, diabetic gastroparesis -history of remote cholecystectomy; history of esophageal stricture with dilatation -continue IV hydration, clear liquids as tolerated -IV Reglan ordered 5 mg q.6 hours, IV Zofran 4 mg as needed -consulted Dr. Montanez to see patient for upper endoscopy -if endoscopy normal then would proceed to gastric emptying study 2. Type 2 diabetes, insulin requiring, uncontrolled -glucose with wild fluctuations up to 300 range -continue patient's routine Lantus, NovoLog sliding scale as needed 3. Chronic pain with opiate dependency -Continue Oxycodone and use IV Dilaudid cautiously -she appears to be unable to absorb/retain her medication at this time causing the need for parenteral opiates. 4. Anxiety/ADHD -continue Trintellix and Adderall 5. COPD -continue Spiriva, albuterol, Flovent. 6. Chronic elevated LFTs, stable Exam Vital Signs (past 8 hours): - 10/07/18 09:00 10/07/18 13:00 Temperature 97.9 F 97.8 F Pulse Rate 81 58 L Respiratory Rate 18 18 Blood Pressure 162/81 H 126/65 Pulse Oximetry 99 95 Oxygen Delivery Method Room Air Oxygen Flow Rate 0 Objective Labs Result Diagrams: 10/07/18 05:23 10/07/18 05:23 Labs: Laboratory Results - last 24 hr 10/06/18 10/06/18 10/07/18 12:25 12:25 05:23 WBC 9.6 RBC 3.90 L Hgb 11.8 L Hct 34.9 L MCV 89.6 MCH 30.4 MCHC 33.9 RDW 13.3 Plt Count 224 Neut % (Auto) 47.8 L Lymph % (Auto) 44.9 H [place] % (Auto) 4.3 Eos % (Auto) 2.4 Baso % (Auto) 0.6 Neut # (Auto) 4600 Lymph # (Auto) 4300 [place] # (Auto) 400 Eos # (Auto) 200 Baso # (Auto) 100 Sodium Potassium Chloride Carbon Dioxide BUN Creatinine Estimated GFR BUN/Creatinine Ratio Glucose Hemoglobin A1c 13.1 H Calcium Magnesium Total Bilirubin AST ALT Alkaline Phosphatase Troponin I < 0.012 Total Protein Albumin Globulin Albumin/Globulin Ratio TSH 10/07/18 10/07/18 05:23 05:23 WBC RBC Hgb Hct MCV MCH MCHC RDW Plt Count Neut % (Auto) Lymph % (Auto) [place] % (Auto) Eos % (Auto) Baso % (Auto) Neut # (Auto) Lymph # (Auto) [place] # (Auto) Eos # (Auto) Baso # (Auto) Sodium 138 Potassium 4.4 Chloride 107 Carbon Dioxide 24 BUN 9 Creatinine 0.80 Estimated GFR > 60.0 BUN/Creatinine Ratio 11.3 Glucose 195 H D Hemoglobin A1c Calcium 8.7 Magnesium 2.1 Total Bilirubin 0.5 AST 70 H ALT 66 H Alkaline Phosphatase 275 H Troponin I Total Protein 7.0 Albumin 3.5 Globulin 3.5 Albumin/Globulin Ratio 1.0 TSH 1.42 Quality VTE Deep Vein Thrombosis/Pulmonary Embolism Present on Admission: No
[2018-10-07] MEDS: FLUTICASONE 110MCG HFA 120 PUFF INH (16:32)
[2018-10-07] MEDS: INSULIN GLARGINE 100 UNIT/ML 3ML PEN 30 UNIT SUBCUT (21:44)
[2018-10-08] VITALS (19 sets, daily range): BP systolic 116–165; BP diastolic 49–82; PULSE 48–67; RESP 12–20; TEMP 35.7–37.1; O2SAT 92–100; BMI 26.6
--- NOTE | 2018-10-08 | PATH_ITS ---
[facility] Accession Number: [id number] . 01 Material submitted: . PART A: DUODENUM BIOPSIES PART B: ANTRUM BIOPSIES . 02 Diagnosis: A. Duodenum, Biopsies: Duodenal mucosa with no diagnostic abnormality. Negative for active inflammation, features of sprue, dysplasia and malignancy. . B. Stomach, Antrum, Biopsies: Acute reactive gastritis with reactive gastropathy. Negative for Helicobacter by immunohistochemistry. Negative for intestinal metaplasia. Negative for dysplasia and malignancy. MRV/10/11/2018 . 02 Electronically signed: . Montserrat Umaña MD, Pathologist NPI- [id number] . 01 Gross description: . Part A: DUODENUM BIOPSIES: Received in formalin is 1 fragment(s) of santiago, soft tissue measuring 0.3 x 0.3 x 0.3 cm submitted entirely in 1 cassette(s) Part B: ANTRUM BIOPSIES: Received in formalin are 2 fragment(s) of santiago, soft tissue measuring 0.4 x 0.3 x 0.2 cm to 0.3 x 0.2 x 0.1 cm submitted entirely in 1 cassette(s) /CKI /CKI . 02 Microscopic: . B. An immunohistochemical stain was performed to evaluate for Helicobacter organisms and is negative. The control stain showed appropriate reactivity. . * This test was developed and its performance characteristics determined by [facility]. It has not been cleared or approved by the U.S. Food and Drug Administration. The FDA has determined that such clearance or approval is not necessary. This test is used for clinical purposes. It should not be regarded as investigational or for research. . 02 Pathologist provided ICD-10: R10.9 . 02 CPT . 988814, 752415, A14219 Performed at: 01 [facility] [address] [place] [address], [place], [place] [id number] MD Tobias Stanofrd MD Phone: [phone] Performed at: 02 [facility] [address] [place], [place] [id number] MD Montserrat Umaña MD Phone: [phone]
--- NOTE | 2018-10-08 | DI.NM.S_ITS ---
PROCEDURE: [place] GASTRIC EMPTYING STUDY RADIOPHARMACEUTICAL: 1 mCi Tc-99m sulfur colloid in an egg sandwich. INDICATIONS: nausea vomiting TECHNIQUE: A Tc-99m labeled sulfur colloid labeled egg sandwich or oatmeal was served to the patient. Anterior and posterior planar images of the abdomen were obtained at 0 minutes and 30 minutes, then at hourly intervals up to 4 hours. The patient was upright and ambulating during the interval. COMPARISON: [place], [place], GASTRIC EMPTYING STUDY, 08/26/2010, 11:57. [facility], CT, CT ABDOMEN PELVIS W CON, 10/06/2018, 14:09. FINDINGS: The stomach has normal size, morphology, and position. There is normal emptying of solid gastric contents from the stomach by visual inspection. No gastroesophageal reflux is visualized. The percentage of tracer retained at specific time points are as follows: Time point Percent gastric retention Normal range 30 minutes 96% 70% or more 1 hour 96% 30% to 90% 2 hours 78% 60% or less 3 hours 69% 30% or less 4 hours 60% 10% or less IMPRESSION: Delayed gastric emptying. Compared to last exam on 08/26/2010, prolonged gastric retention has worsened. Dictated by: Jeffrey Nathan M.D. on 10/11/2018 at 13:09 Approved by: Jeffrey Nathan M.D. on 10/11/2018 at 13:11
[2018-10-08] MEDS: METOCLOPRAMIDE 10 MG/2 ML INJ 5 MG IV ×2 (00:24→05:36)
[2018-10-08] MEDS: SODIUM CHLORIDE 0.9% 1,000 ML 100 ML IV ×4 (00:24→22:04)
[2018-10-08] MEDS: PROPRANOLOL 10 MG TABLET 20 MG PO ×3 (00:24→23:54)
[2018-10-08] MEDS: HYDROMORPHONE 0.5 MG INJ IV ×4 (00:32→23:47)
--- NOTE | 2018-10-08 01:29 | PC.NURSE ---
2300- Pt NPO at midnight for poss scope in the AM. States she has 7/10 abdominal pain; requesting IV Diluadid. Scheduled meds administered per orders; pt up to bathroom 1PA w/ walker. Hx of falls, this pt is high risk. Denies any nausea/emesis this PM, will cont to monitor. IV fluids hanging into patent IV. 0600- Pt c/o inc anxiety, wanting her antidepressant pill Vortioxetine early. Administered per pt's request as she normally takes the pill at this time.
[2018-10-08] MEDS: FLUTICASONE 110MCG HFA 120 PUFF INH ×2 (04:18→20:35)
[2018-10-08] MEDS: TIOTROPIUM BROMIDE 18 MCG INHALER INH (04:19)
[2018-10-08] MEDS: OXYCODONE ER 20 MG TAB PO (04:37)
[2018-10-08] MEDS: PANTOPRAZOLE 40 MG TABLET PO (05:36)
[2018-10-08 06:10] LABS: BUN Creatinine Ratio 11.4 (6-22); Blood Urea Nitrogen 8 mg/dL (7-17); Calcium 8.8 mg/dL (8.4-10.2); Carbon Dioxide 23 mmol/L (22-32); Chloride 107 mmol/L (98-107); Estimated Glomerular Filt Rate > 60.0 mL/min (>60); Glucose 172 mg/dL (70-100); HEMOLYSIS < 15 (0-50); Magnesium 1.9 mg/dL (1.6-2.3); Potassium 4.2 mmol/L (3.4-5.1); Sodium 139 mmol/L (137-145)
[2018-10-08] MEDS: VORTIOXETINE 1 EACH PO (06:26)
[2018-10-08] MEDS: cloNIDine 0.1 MG TABLET 0.2 MG PO ×2 (08:15→19:50)
[2018-10-08] MEDS: INSULIN ASPART 100 UNIT/ML INSULN PEN SUBCUT ×3 (08:17→22:03)
[2018-10-08] MEDS: ONDANSETRON 4 MG/2 ML INJ IV ×2 (08:23→17:15)
--- NOTE | 2018-10-08 09:06 | PM.CN ---
History of Present Illness Date Patient Seen: 10/08/18 Time Patient Seen: 09:06 Chief complaint: THROWING UP BILE/BLOOD,ABD PAIN Reason for consult: Intractable nausea and vomiting Requesting provider: [place] Menjivar Narrative: Keila is a hao 53-year-old lady who was admitted on the 3rd with intractable nausea and vomiting. She has a history of brittle and very difficult to control diabetes and is managed by an airport representative in the [place] area. She reports that she suffers from a connective tissue disease as well as diabetes. For the last 2 weeks she has had intractable nausea and vomiting. She says she is ?so very tired? of this problem and feels she has no quality of life. Dr. Menjivar is trying to find reasons for her nausea and has consulted me for consideration of esophagogastroduodenoscopy. She has had several of these in the past by my partner Dr. Ramirez. She has a history of esophageal stricture and has dilation at intervals depended upon symptoms. She is having no symptoms of food stuck in her throat or dysphagia or odynophagia. She simply having nausea and vomiting. She reports that the vomiting is almost exclusively bile. Most of the time she is only dry heaving with no product. She has been afebrile at home. She has no sick contacts with similar symptoms. [facility] Medical History ADHD (attention deficit hyperactivity disorder) (Chronic) Anxiety (Chronic) COPD (chronic obstructive pulmonary disease) (Chronic) Cataract (Chronic) Chronic cough (Chronic) Chronic headaches (Chronic) Depression (Chronic) Diabetes mellitus (Chronic 2003) Fibromyalgia (Chronic) GERD (gastroesophageal reflux disease) (Chronic 1980) Hyperlipidemia (Chronic 1991) Hypertension (Chronic 1991) Lumbar spine pain (Chronic) PTSD (post-traumatic stress disorder) (Chronic) Sarcoidosis (Chronic) Scoliosis (Chronic) Shoulder pain (Chronic) Spinal stenosis (Chronic) Cervical cancer (Resolved 1991) Chicken pox (Resolved) Esophageal stricture (Resolved 09/2017) History of blood transfusion (Resolved ~07/1981) Kidney stones (Resolved) Pancreatitis (Resolved 2010) Surgical History Status post cataract extraction (Acute) Anesthesia (Resolved) History of tonsillectomy (Resolved 1967) S/P dilatation of esophageal stricture (Resolved 09/2017) Status post delivery (Resolved 05/02/85) Status post cholecystectomy (Resolved 02/1985) Status post hysterectomy (Resolved 1986) Family History Brother Age: 61 Diabetes mellitus Child Age: 37 Asthma Child Heart defect Father Age: 81 Hypertension Cirrhosis of liver Mother Heart disease High cholesterol Amyloidosis Sister Age: 58 Diabetes mellitus Heart disease Sister Heart disease Social History household members: spouse Smoking Status: Former smoker alcohol intake: never Family History Brother Age: 61 Diabetes mellitus Child Age: 37 Asthma Child Heart defect Father Age: 81 Hypertension Cirrhosis of liver Mother Heart disease High cholesterol Amyloidosis Sister Age: 58 Diabetes mellitus Heart disease Sister Heart disease Social History household members: spouse Smoking Status: Former smoker alcohol intake: never Meds Home Medications Medication Instructions Recorded Confirmed Type aspirin 81 mg PO QDAY #30 tab 04/20/16 10/06/18 Rx pantoprazole [Protonix] 40 mg PO QDAY #90 tab 09/14/16 10/06/18 Rx epinephrine 0.3 mg IM PRN PRN #0 05/11/17 10/06/18 History levomefolate calcium 15 mg PO QDAY #90 cap 07/12/17 10/06/18 Rx [L-Methylfolate] naproxen [Naprosyn] 500 mg PO BID PRN #60 tab 08/17/17 10/06/18 Rx Spiriva with HandiHaler 18 mcg INH QDAY #30 cap 08/23/17 10/06/18 Rx Flovent HFA 2 puff INH BID #1 inh 09/04/17 10/06/18 Rx ketoconazole 1 nathan TOPICAL BID #30 gm 09/11/17 10/06/18 Rx dicyclomine 10 mg PO QIDP PRN #0 10/05/17 10/06/18 History Ventolin HFA 1 - 2 puff INH 4-6HRS #1 inh 10/18/17 10/06/18 Rx Restasis 1 drp OPHTH BID #0 11/09/17 10/06/18 History hydromorphone 4 mg PO PRN PRN #0 11/09/17 10/06/18 History ondansetron [Zofran ODT] 4 mg SUBLINGUAL Q6HP PRN #30 odt 11/12/17 10/06/18 Rx 1 tab PO DAILY 01/18/18 10/06/18 History vitamin,calcium,axxczrif-lpoc-hxaux acid tablet insulin glargine (U-100) 100 30 unit SUBCUT HS #1 ml 05/31/18 10/06/18 Rx unit/mL (3 mL) subcutaneous pen insulin lispro (U- 100) 100 10 - 15 unit SUBCUT ACHS #1 syr 05/31/18 10/06/18 Rx unit/mL subcutaneous pen clonidine HCl 0.2 mg tablet 0.2 mg PO BID #60 tab 08/13/18 10/06/18 Rx propranolol 20 mg tablet 20 mg PO TID PRN #10 tab 08/13/18 10/06/18 Rx tizanidine 4 mg tablet 4 mg PO Q8H PRN #90 tab 08/27/18 10/06/18 Rx dextroamphetamine-amphetamine ER 10 mg PO QAM #30 cap 08/29/18 10/06/18 Rx 10 mg 24hr capsule,extend release CMP Testosterone 0.2% See Rx Instructions .ROUTE 09/24/18 10/06/18 Rx .COMPLEX #30 gram nystatin-triamcinolone 100,000 See Rx Instructions TOP BID #30 09/24/18 10/06/18 Rx unit/gram-0.1 % topical ointment gram estradiol 0.01% (0.1 mg/gram) See Rx Instructions VAG DAILY 09/25/18 10/06/18 Rx vaginal cream #42.5 gram glucagon (human recombinant) 1 mg SUBCUT Q20M PRN 10/06/18 10/06/18 History [Glucagon Emergency Kit (human)] oxycodone [OxyContin] 20 mg PO Q12H 10/06/18 10/06/18 History vortioxetine [Trintellix] 1 tab PO DAILY 10/06/18 10/06/18 History Allergies Allergy/AdvReac Type Severity Reaction Status Date / Time venom-honey bee Allergy Severe SWOLLEN Verified 10/06/18 12:09 [bee venom (honey bee)] TONGUE AND THROAT BUT NOT ANAPHALAXIS pregabalin [From LYRICA] Allergy Intermediate 'WELTS ON Verified 10/06/18 12:09 MY BODY' cyclobenzaprine Allergy Unknown Verified 10/06/18 12:09 [From FLEXERIL] gabapentin Allergy Unknown MY Verified 10/06/18 12:09 THOUGHT IT MADE ME ACT WERID hydroxyzine AdvReac Unknown PT STATES Verified 10/06/18 12:09 EYES DRIES ME UP venlafaxine AdvReac Unknown MADE MY Verified 10/06/18 12:09 BLOOD PRESSURE HIGH trazodone AdvReac heart Verified 10/06/18 12:09 palpatations MALIN NICOLAS Allergy Severe SWELLING Uncoded 10/06/18 12:09 FACE AND THROAT LACTOSE INTOLERANT AdvReac Unknown Uncoded 10/06/18 12:09 Review of Systems Review of Systems All systems reviewed & are unremarkable except as noted in HPI and below Exam Vital Signs (past 8 hours): - 10/08/18 04:19 10/08/18 04:23 10/08/18 08:00 Temperature 97.6 F 97.3 F L Pulse Rate 60 64 Respiratory Rate 18 16 Blood Pressure 148/72 H 148/72 H Pulse Oximetry 99 100 92 10/08/18 08:15 Temperature Pulse Rate Respiratory Rate Blood Pressure 148/72 H Pulse Oximetry Oxygen Delivery Method Room Air Oxygen Flow Rate 0 Narrative Exam Narrative: Pleasant but obviously uncomfortable middle-aged lady in some physical distress HEENT: Normocephalic and atraumatic, pupils equal round reactive to light accommodation with anicteric sclera Lungs: Clear bilaterally Heart: Regular rate and rhythm without murmur Abdomen: Soft, tender to palpation in the epigastrium and bilateral upper quadrants. Active bowel sounds. No rebound or guarding. No peritoneal signs. No incarcerated hernias appreciated. Extremities: No edema is noted. Her lower extremities are quite thin with some evidence of muscle wasting Objective Labs Result Diagrams: 10/07/18 05:23 10/08/18 05:42 Labs: Laboratory Results - last 24 hr 10/08/18 05:42 Sodium 139 Potassium 4.2 Chloride 107 Carbon Dioxide 23 BUN 8 Creatinine 0.70 Estimated GFR > 60.0 BUN/Creatinine Ratio 11.4 Glucose 172 H Calcium 8.8 Magnesium 1.[address] [place] [address] CT Scan Report Signed Patient: Keila Godfrey MR#: [id number] : 1965 Acct:[id number] Age/Sex: 53 / F Date of Service: 10/06/18 Loc: ED Accession Number: [id number] Procedure: CT abdomen pelvis w con Ordering Provider: Jimena Rosario P.A-C PROCEDURE: CT ABDOMEN PELVIS W CON INDICATIONS: pain, vomiting bile/blood TECHNIQUE: After the administration of intravenous contrast, 5 mm thick sections acquired from the diaphragm to the symphysis. 5 mm coronal and sagittal reformats were acquired. For radiation dose reduction, the following was used: automated exposure control, adjustment of mA and/or kV according to patient size. COMPARISON: None. FINDINGS: Image quality: Excellent. ABDOMEN: Lung bases: Lung bases are clear. Heart size is normal. Moderate hiatal hernia. Solid organs: Liver is normal in size and enhancement. Persistent diffuse hypoattenuation of the liver suggesting hepatic steatosis. Minimal nodular liver contour, unchanged. Gallbladder is surgically absent with persistent prominence of the common bile duct. No intrahepatic biliary ductal system dilatation. Pancreas enhances normally. Stable appearance of minimal prominence of the main pancreatic duct. Spleen is normal in size and enhancement. No adrenal nodules. Kidneys demonstrate normal size and enhancement, without hydronephrosis. Peritoneum and bowel: Bowel loops demonstrate normal wall thickness and caliber. No free fluid or air. Moderate fecal load seen throughout the colon. Nodes and vessels: No retroperitoneal or mesenteric adenopathy by size criteria. Aorta and inferior vena cava are normal in size. Miscellaneous: No ventral hernias. PELVIS: Genitourinary: Bladder wall thickness is normal. Miscellaneous: No inguinal hernias or adenopathy. Bones: No suspicious bony lesions. No acute vertebral body compression fractures. Multilevel lumbar spondylosis, stable. IMPRESSION: 1. Stable CT evaluation abdomen and pelvis without acute abnormalities. 2. Status post cholecystectomy with stable dilatation of the common bile duct and minimal prominence of the main pancreatic duct. Findings are likely related to post cholecystectomy changes. 3. Moderate size hiatal hernia. 4. Hepatic steatosis. Dictated by: Blayne Rodriguez M.D. on 10/06/2018 at 14:57 Approved by: Blayne Rodriguez M.D. on 10/06/2018 at 15:06 Assessment & Plan Assessment & Plan narrative: Pleasant 53-year-old lady with severe underlying illness who now has intractable nausea and vomiting. I have reviewed her CT scan personally. There is no clear evidence of gastric outlet obstruction or any clear etiology for nausea and vomiting. I have recommended an esophagogastroduodenoscopy. I have discussed the risks and benefits with Keila and she has expressed a desire to complete the procedure today. It has been scheduled for 4:00 p.m..
--- NOTE | 2018-10-08 09:10 | P.CONS_ITS ---
History of Present Illness Date Patient Seen: 10/08/18 Time Patient Seen: 09:06 Chief complaint: THROWING UP BILE/BLOOD,ABD PAIN Reason for consult: Intractable nausea and vomiting Requesting provider: [place] Menjivar Narrative: Keila is a hao 53-year-old lady who was admitted on the 3rd with intractable nausea and vomiting. 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 She reports that she suffers from a connective tissue disease as well as diabetes. For the last 2 weeks she has had intractable nausea and vomiting. She says she is ?so very tired? of this problem and feels she has no quality of life. Dr. Menjivar is trying to find reasons for her nausea and has consulted me for consideration of esophagogastroduodenoscopy. She has had several of these in the past by my partner Dr. Ramirez. She has a history of esophageal stricture and has dilation at intervals depended upon symptoms. She is having no symptoms of food stuck in her throat or dysphagia or odynophagia. She simply having nausea and vomiting. She reports that the vomiting is almost exclusively bile. Most of the time she is only dry heaving with no product. She has been afebrile at home. She has no sick contacts with similar symptoms. FOR[facility]LY [facility] Medical History ADHD (attention deficit hyperactivity disorder) (Chronic) Anxiety (Chronic) COPD (chronic obstructive pulmonary disease) (Chronic) Cataract (Chronic) Chronic cough (Chronic) Chronic headaches (Chronic) Depression (Chronic) Diabetes mellitus (Chronic 2003) Fibromyalgia (Chronic) GERD (gastroesophageal reflux disease) (Chronic 1980) Hyperlipidemia (Chronic 1991) Hypertension (Chronic 1991) Lumbar spine pain (Chronic) PTSD (post-traumatic stress disorder) (Chronic) Sarcoidosis (Chronic) Scoliosis (Chronic) Shoulder pain (Chronic) Spinal stenosis (Chronic) Cervical cancer (Resolved 1991) Chicken pox (Resolved) Esophageal stricture (Resolved 09/2017) History of blood transfusion (Resolved ~07/1981) Kidney stones (Resolved) Pancreatitis (Resolved 2010) Surgical History Status post cataract extraction (Acute) Anesthesia (Resolved) History of tonsillectomy (Resolved 1967) S/P dilatation of esophageal stricture (Resolved 09/2017) Status post delivery (Resolved 05/02/85) Status post cholecystectomy (Resolved 02/1985) Status post hysterectomy (Resolved 1986) Family History Brother Age: 61 Diabetes mellitus Child Age: 37 Asthma Child Heart defect Father Age: 81 Hypertension Cirrhosis of liver Mother Heart disease High cholesterol Amyloidosis Sister Age: 58 Diabetes mellitus Heart disease Sister Heart disease Social History household members: spouse Smoking Status: Former smoker alcohol intake: never Family History Brother Age: 61 Diabetes mellitus Child Age: 37 Asthma Child Heart defect Father Age: 81 Hypertension Cirrhosis of liver Mother Heart disease High cholesterol Amyloidosis Sister Age: 58 Diabetes mellitus Heart disease Sister Heart disease Social History household members: spouse Smoking Status: Former smoker alcohol intake: never Meds Home Medications Medication Instructions Recorded Confirmed Type aspirin 81 mg PO QDAY #30 tab 04/20/16 10/06/18 Rx pantoprazole [Protonix] 40 mg PO QDAY #90 tab 09/14/16 10/06/18 Rx epinephrine 0.3 mg IM PRN PRN #0 05/11/17 10/06/18 History levomefolate calcium 15 mg PO QDAY #90 cap 07/12/17 10/06/18 Rx [L-Methylfolate] naproxen [Naprosyn] 500 mg PO BID PRN #60 tab 08/17/17 10/06/18 Rx Spiriva with HandiHaler 18 mcg INH QDAY #30 cap 08/23/17 10/06/18 Rx Flovent HFA 2 puff INH BID #1 inh 09/04/17 10/06/18 Rx ketoconazole 1 nathan TOPICAL BID #30 gm 09/11/17 10/06/18 Rx dicyclomine 10 mg PO QIDP PRN #0 10/05/17 10/06/18 History Ventolin HFA 1 - 2 puff INH 4-6HRS #1 inh 10/18/17 10/06/18 Rx Restasis 1 drp OPHTH BID #0 11/09/17 10/06/18 History hydromorphone 4 mg PO PRN PRN #0 11/09/17 10/06/18 History ondansetron [Zofran ODT] 4 mg SUBLINGUAL Q6HP PRN #30 odt 11/12/17 10/06/18 Rx 1 tab PO DAILY 01/18/18 10/06/18 History vitamin,calcium,baaaycgd-nheh-xgvvv acid tablet insulin glargine (U-100) 100 30 unit SUBCUT HS #1 ml 05/31/18 10/06/18 Rx unit/mL (3 mL) subcutaneous pen insulin lispro (U- 100) 100 10 - 15 unit SUBCUT ACHS #1 syr 05/31/18 10/06/18 Rx unit/mL subcutaneous pen clonidine HCl 0.2 mg tablet 0.2 mg PO BID #60 tab 08/13/18 10/06/18 Rx propranolol 20 mg tablet 20 mg PO TID PRN #10 tab 08/13/18 10/06/18 Rx tizanidine 4 mg tablet 4 mg PO Q8H PRN #90 tab 08/27/18 10/06/18 Rx dextroamphetamine-amphetamine ER 10 mg PO QAM #30 cap 08/29/18 10/06/18 Rx 10 mg 24hr capsule,extend release CMP Testosterone 0.2% See Rx Instructions .ROUTE 09/24/18 10/06/18 Rx .COMPLEX #30 gram nystatin-triamcinolone 100,000 See Rx Instructions TOP BID #30 09/24/18 10/06/18 Rx unit/gram-0.1 % topical ointment gram estradiol 0.01% (0.1 mg/gram) See Rx Instructions VAG DAILY 09/25/18 10/06/18 Rx vaginal cream #42.5 gram glucagon (human recombinant) 1 mg SUBCUT Q20M PRN 10/06/18 10/06/18 History [Glucagon Emergency Kit (human)] oxycodone [OxyContin] 20 mg PO Q12H 10/06/18 10/06/18 History vortioxetine [Trintellix] 1 tab PO DAILY 10/06/18 10/06/18 History Allergies Allergy/AdvReac Type Severity Reaction Status Date / Time venom-honey bee Allergy Severe SWOLLEN Verified 10/06/18 12:09 [bee venom (honey bee)] TONGUE AND THROAT BUT NOT ANAPHALAXIS pregabalin [From LYRICA] Allergy Intermediate 'WELTS ON Verified 10/06/18 12:09 MY BODY' cyclobenzaprine Allergy Unknown Verified 10/06/18 12:09 [From FLEXERIL] gabapentin Allergy Unknown MY Verified 10/06/18 12:09 THOUGHT IT MADE ME ACT WERID hydroxyzine AdvReac Unknown PT STATES Verified 10/06/18 12:09 EYES DRIES ME UP venlafaxine AdvReac Unknown MADE MY Verified 10/06/18 12:09 BLOOD PRESSURE HIGH trazodone AdvReac heart Verified 10/06/18 12:09 palpatations MALIN NICOLAS Allergy Severe SWELLING Uncoded 10/06/18 12:09 FACE AND THROAT LACTOSE INTOLERANT AdvReac Unknown Uncoded 10/06/18 12:09 Review of Systems Review of Systems All systems reviewed & are unremarkable except as noted in HPI and below Exam Vital Signs (past 8 hours): - 10/08/18 04:19 10/08/18 04:23 10/08/18 08:00 Temperature 97.6 F 97.3 F L Pulse Rate 60 64 Respiratory Rate 18 16 Blood Pressure 148/72 H 148/72 H Pulse Oximetry 99 100 92 10/08/18 08:15 Temperature Pulse Rate Respiratory Rate Blood Pressure 148/72 H Pulse Oximetry Oxygen Delivery Method Room Air Oxygen Flow Rate 0 Narrative Exam Narrative: Pleasant but obviously uncomfortable middle-aged lady in some physical distress HEENT: Normocephalic and atraumatic, pupils equal round reactive to light accommodation with anicteric sclera Lungs: Clear bilaterally Heart: Regular rate and rhythm without murmur Abdomen: Soft, tender to palpation in the epigastrium and bilateral upper q uadrants. Active bowel sounds. No rebound or guarding. No peritoneal signs. No incarcerated hernias appreciated. Extremities: No edema is noted. Her lower extremities are quite thin with some evidence of muscle wasting Objective Labs Result Diagrams: 10/07/18 05:23 10/08/18 05:42 Labs: Laboratory Results - last 24 hr 10/08/18 05:42 Sodium 139 Potassium 4.2 Chloride 107 Carbon Dioxide 23 BUN 8 Creatinine 0.70 Estimated GFR > 60.0 BUN/Creatinine Ratio 11.4 Glucose 172 H Calcium 8.8 Magnesium [address] [address] [address] Scan Report Signed Patient: Keila Godfrey MR#: [id number] : 1965 Acct:[id number] Age/Sex: 53 / F Date of Service: 10/06/18 Loc: ED Accession Number: [id number] Procedure: CT abdomen pelvis w con Ordering Provider: Jimena Rosario P.A-C PROCEDURE: CT ABDOMEN PELVIS W CON INDICATIONS: pain, vomiting bile/blood TECHNIQUE: After the administration of intravenous contrast, 5 mm thick sections acquired from the diaphragm to the symphysis. 5 mm coronal and sagittal reformats were acquired. For radiation dose reduction, the following was used: automated exposure control, adjustment of mA and/or kV according to patient size. COMPARISON: None. FINDINGS: Image quality: Excellent. ABDOMEN: Lung bases: Lung bases are clear. Heart size is normal. Moderate hiatal he rnia. Solid organs: Liver is normal in size and enhancement. Persistent diffuse hypoattenuation of the liver suggesting hepatic steatosis. Minimal nodular liver contour, unchanged. Gallbladder is surgically absent with persistent prominence of the common bile duct. No intrahepatic biliary ductal system dilatation. Pancreas enhances normally. Stable appearance of minimal prominence of the main pancreatic duct. Spleen is normal in size and enhancement. No adrenal nodules. Kidneys demonstrate normal size and enhancement, without hydronephrosis. Peritoneum and bowel: Bowel loops demonstrate normal wall thickness and caliber. No free fluid or air. Moderate fecal load seen throughout the colon. Nodes and vessels: No retroperitoneal or mesenteric adenopathy by size criteri a. Aorta and inferior vena cava are normal in size. Miscellaneous: No ventral hernias. PELVIS: Genitourinary: Bladder wall thickness is normal. Miscellaneous: No inguinal hernias or adenopathy. Bones: No suspicious bony lesions. No acute vertebral body compression fractures. Multilevel lumbar spondylosis, stable. IMPRESSION: 1. Stable CT evaluation abdomen and pelvis without acute abnormalities. 2. Status post cholecystectomy with stable dilatation of the common bile duct and minimal prominence of the main pancreatic duct. Findings are likely related to post cholecystectomy changes. 3. Moderate size hiatal hernia. 4. Hepatic steatosis. Dictated by: Blayne Rodriguez M.D. on 10/06/2018 at 14:57 Approved by: Blayne Rodriguez M.D. on 10/06/2018 at 15:06 Assessment & Plan Assessment & Plan narrative: Pleasant 53-year-old lady with severe underlying illness who now has intractable nausea and vomiting. I have reviewed her CT scan personally. There is no clear evidence of gastric outlet obstruction or any clear etiology for nausea and vomiting. I have recommended an esophagog astroduodenoscopy. I have discussed the risks and benefits with Keila and she has expressed a desire to complete the procedure today. It has been scheduled for 4:00 p.m..
[2018-10-08] MEDS: LORazepam 2 MG/ML SYRINGE 1 MG IV (14:18)
--- NOTE | 2018-10-08 15:51 | PC.NURSE ---
PM shift, start of shift, Pt resting in bed comfortably. PACU called and will take Pt down @ 1600 for EDG. Blank consent sent down with Pt, Iv SL for w/c transport. Pt able to get settled into W/c and head down with spouse. No concerns at this time. Off floor 1542.
--- NOTE | 2018-10-08 16:52 | P.OP_ITS ---
Operative Date/Time/Diagnoses Date of procedure: 10/08/18 Time of procedure: 16:50 Pre-op diagnosis: Intractable nausea and vomiting Post-op diagnosis: same Procedure & Clinicians Procedure: Esophagogastroduodenoscopy with biopsies Same procedure as scheduled: Yes Indications: Intractable nausea and vomiting Surgeon: Malena Montanez Anesthesia Type: General (Dr. Becker) Operative Notes Findings: 1. Normal duodenum 2. Mild antral gastritis without christy ulceration 3. Appearance consistent with mucosal atrophy 4. GE junction at 34 cm from the incisors with a widely patent Schatzki's ring 5. The remainder of the esophageal mucosa is normal in appearance Specimen(s): other (cold forceps mucosal biopsies of the duodenum and antrum) Estimated Blood Loss (mL): 2 Procedure in detail: After obtaining informed consent, the patient was brought to the GI suite and placed in the supine position on the examination table. After placement of appropriate monitors, the patient was given general anesthesia per Dr. Becker. This was necessary because the patient has not been able to tolerate IV sedation in the past and she has multiple complicating underlying medical problems. A time out was held per SCOAP protocol. A bite block was gently placed between the patient's teeth. The endoscope was lubricated and then passed into the patient's posterior oropharynx. The esophagus was cannulated under direct vision and the scope was passed to the second portion of the duodenum without difficulty. The scope was then w ithdrawn with careful examination of all areas of the upper GI tract and mucosa. In the stomach, the instrument was retroflexed and the GE junction examined. The scope was straightened and the procedure continued with examination of the remainder of the upper GI tract. Findings are noted above. Air was aspirated from the stomach and the endoscope gently removed from the esophagus. The patient was allowed to awaken from sedation without difficulty and taken to the post-anesthesia care unit in good condition. Complications: none Condition: stable Disposition: PACU Plan for aftercare: 1. Return to Med/Surg 2. Continue all previous orders 3. No clear etiology for nausea and vomiting.
--- NOTE | 2018-10-08 17:18 | SUR.PHASEI ---
Assumed care for transport up to room. report called to Mila, pt took ice chips, then sips of water with out trouble. Transported up to room via stretcher, left in stable condition.
[2018-10-08] MEDS: TIZANIDINE 4 MG TABLET PO (17:43)
--- NOTE | 2018-10-08 20:19 | P.PN_ITS ---
Subjective Date Patient Seen: 10/08/18 Interval history: Patient is 53-year-old female with uncontrolled diabetes p resented with 2 week history of upper abdominal pain with intractable nausea and vomiting. Noted an episode of hematemesis at home. Patient states she is having a lot of dry heaves with vomiting bile and not able to eat much. Exam Vital Signs (past 8 hours): - 10/08/18 13:00 10/08/18 15:00 10/08/18 15:41 Temperature 97.7 F 96.5 F L Pulse Rate 55 L 58 L Respiratory Rate 16 15 Blood Pressure 147/75 H 138/65 Pulse Oximetry 97 98 10/08/18 15:55 10/08/18 16:46 10/08/18 16:51 Temperature 98.8 F 97.0 F L Pulse Rate 56 L 61 51 L Respiratory Rate 20 16 17 Blood Pressure 150/70 H 145/72 H 126/49 L Pulse Oximetry 99 100 100 10/08/18 16:56 10/08/18 17:00 10/08/18 17:10 Temperature 97.0 F L 96.3 F L Pulse Rate 51 L 59 L 60 Respiratory Rate 16 16 16 Blood Pressure 119/56 L 128/60 133/70 Pulse Oximetry 100 100 100 10/08/18 17:40 10/08/18 18:18 Temperature 96.4 F L 96.4 F L Pulse Rate 53 L 53 L Respiratory Rate 16 12 Blood Pressure 165/78 H 155/73 H Pulse Oximetry 97 100 Oxygen Delivery Method Room Air Oxygen Flow Rate 0 Narrative Exam Narrative: General: Alert, anxious Lungs: Clear to auscultation Heart: Regular rhythm Abdomen: Nondistended, tender across upper abdomen Extremities: No edema Objective Labs Result Diagrams: 10/07/18 05:23 10/08/18 05:42 Labs: Laboratory Results - last 24 hr 10/08/18 05:42 Sodium 139 Potassium 4.2 Chloride 107 Carbon Dioxide 23 BUN 8 Creatinine 0.70 Estimated GFR > 60.0 BUN/Creatinine Ratio 11.4 Glucose 172 H Calcium 8.8 Magnesium 1.9 Assessment & Plan Assessment & Plan narrative: 1. Intractable abdominal pain and vomiting -etiology unclear, EGD 10/08/[address] Montanez revealed only mild antral gastritis without ulceration, -lipase normal, CT abdomen and pelvis unremarkable -history of remote cholecystectomy; history of esophageal stricture with dilatation -continue IV hydration, diet as tolerated -IV Reglan ordered 5 mg q.6 hours, IV Zofran 4 mg as needed -ordered a gastric emptying study to assess for diabetic gastroparesis -also consider recent change in opioid pain regimen may be a factor 2. Type 2 diabetes, insulin requiring, uncontrolled -glucose with wild fluctuations up to 300 range -continue patient's routine Lantus, NovoLog sliding scale as needed 3. Chronic pain with opiate dependency -Continue Oxycodone and use IV Dilaudid cautiously -she appears to be unable to absorb/retain her medication at this time causing the need for parenteral opiates. 4. Anxiety/ADHD -continue Trintellix and Adderall 5. COPD -continue Spiriva, albuterol, Flovent. 6. Chronic elevated LFTs, stable Quality VTE Deep Vein Thrombosis/Pulmonary Embolism Present on Admission: No
[2018-10-08] MEDS: INSULIN GLARGINE 100 UNIT/ML 3ML PEN 30 UNIT SUBCUT (22:03)
[2018-10-09] VITALS (8 sets, daily range): BP systolic 125–157; BP diastolic 69–94; PULSE 52–69; RESP 14–19; TEMP 36.1–36.8; O2SAT 94–100
--- NOTE | 2018-10-09 01:12 | PC.NURSE ---
2300- Pt writhing in pain stating it is 9/10 in her stomach area. Previous RN did not give pt's scheduled Oxycontin as she appeared 'to be falling asleep as I was talking to her'. Pt upset by this, but just states that she would like some pain relief at this time. PRN IV Dilaudid given as ordered; pt also asking for anxiety medication. PRN anxiety med given as ordered. Pt states some relief; able to talk about how her day went. Aware of reasoning for remaining on clear liquid diet. IV running fluids as ordered. 0330- BG of 211 when assessed. Pt denies pain, ate some jello & apple juice and says he stomach feels fine for now. 0500- Pt very drowsy, falls asleep during conversation with this RN. VSS; BG stable; states she just needs to get some sleep. Will cont to assess.
[2018-10-09] MEDS: TIZANIDINE 4 MG TABLET PO (02:56)
[2018-10-09] MEDS: FLUTICASONE 110MCG HFA 120 PUFF INH (05:21)
[2018-10-09] MEDS: OXYCODONE ER 20 MG TAB PO ×2 (06:21→20:58)
[2018-10-09] MEDS: HYDROMORPHONE 0.5 MG INJ IV ×3 (08:16→17:51)
[2018-10-09] MEDS: SODIUM CHLORIDE 0.9% 1,000 ML 100 ML IV ×2 (08:17→18:39)
[2018-10-09] MEDS: INSULIN ASPART 100 UNIT/ML INSULN PEN SUBCUT ×3 (08:21→21:02)
[2018-10-09] MEDS: Cyclosporine (Restasis) 1 DROP 1 EACH EYE-BOTH ×2 (08:22→20:58)
[2018-10-09] MEDS: ENOXAPARIN 40 MG/0.4 ML SYRINGE SUBCUT (08:22)
[2018-10-09] MEDS: cloNIDine 0.1 MG TABLET 0.2 MG PO ×2 (08:23→20:58)
[2018-10-09] MEDS: VORTIOXETINE 1 EACH PO (08:23)
[2018-10-09] MEDS: ONDANSETRON 4 MG/2 ML INJ IV (08:36)
--- NOTE | 2018-10-09 09:38 | PC.NURSE ---
AM NOTE - pt is awake, describes a shart transverse lower abd discomfort 8 on scale 0/10, trying take few sips clears this am, underlying nausea at times, bt are present and pt had a formed bm earlier, given 4mg iv zofran and 0.5mg dilaudid, ra 98%, p 64.
[2018-10-09] MEDS: LORazepam 0.5 MG TABLET PO (19:51)
--- NOTE | 2018-10-09 20:05 | P.PN_ITS ---
Subjective Date Patient Seen: 10/09/18 Interval history: Keila Luna is a 53-year-old female with uncontrolled diabetes presented with 2 week history of upper abdominal pain with intractable nausea and vomiting. The patient is anxious but resting on bedside comfortably and in no acute distress. She exhibits very tangential thinking and redirects conversation frequently. She is emotionally labile and tearful with discussion of narcotics and our medical recommendations to slowly titrate her narcotics down with her pain management physician. She cried out please do not leave me in pain. Discussed in depth gastroparesis related to diabetes, as well as, chronic narcotic use. Nuclear medicine gastric emptying study was not obtainable today and will not be obtainable until 10/11/2018. The patient reports she is intermittently nauseous but does not appear to be so during my exam. She also in the same timeframe endorses hunger and would like her diet advanced. She denies marijuana use. She also denies headache, chest pain, shortness of breath, fever, chills, dysuria, diarrhea or constipation. However, she does report that her last bowel movement was hard and formed. Exam Vital Signs (past 8 hours): - 10/09/18 13:00 10/09/18 15:10 10/09/18 16:40 Temperature 97.8 F 97.0 F L Pulse Rate 62 53 L Respiratory Rate 16 17 Blood Pressure 129/71 157/94 H Pulse Oximetry 99 100 98 Oxygen Delivery Method Room Air Oxygen Flow Rate 0 Narrative Exam Narrative: General: Middle-aged female sitting on bedside acute distress, well-developed, well-nourished, appropriately interactive. HEENT: Normocephalic, atraumatic. External ears without defect. Pupils equal, round, and reactive to light. Anicteric sclerae, moist conjunctivae, and no lid lag. Neck: Supple with full range of motion. No lymphadenopathy or thyromegaly. Cardiovascular: Regular rate and rhythm without murmurs, rubs, or gallops appreciated. Pulmonary: Clear to auscultation bilaterally without crackles, wheezes, or rhonchi. Normal respiratory effort with no use of accessory muscles. Abdomen: Soft, obese, bowel sounds present, patient winces to a very superficial touch but with deep palpation does not appear to be in significant pain although reports tenderness, non-distended. No rebound. Voluntary guarding. No hepa tosplenomegaly or masses appreciated. Extremities: No clubbing, cyanosis, or edema. Several scattered excoriations over lower extremities bilaterally. Skin: Normal temperature, turgor, and texture; no rash, ulcers, or subcutaneous nodules appreciated. Neurological: Cranial nerves grossly intact. Psychiatric: Emotionally labile, depressed mood, flat affect. Alert and oriented to person, place, and time. Objective Labs Result Diagrams: 10/07/18 05:23 10/08/18 05:42 Assessment & Plan Assessment & Plan narrative: 1. Intractable abdominal pain and vomiting -Etiology unclear but likely secondary to gastroparesis and chronic narcotic use. -EGD 10/08/[address] Montanez revealed only mild antral gastritis without ulceration. -Lipase normal. -CT abdomen and pelvis unremarkable -History of remote cholecystectomy; history of esophageal stricture with dilatation. -Continue IV hydration. -Plan to slowly advance diet to full liquid and soft as tolerated. -IV Reglan ordered 5 mg q.6 hours, IV Zofran 4 mg as needed. ordered Ativan 0.5 mg 3 times daily as needed for anxiety and nausea/vomiting. -Ordered a gastric emptying study to assess for diabetic gastroparesis which cannot be completed until 10/11/2018. 2. Type 2 diabetes, insulin requiring, uncontrolled -Glucose with wild fluctuations up to 300 range. -Continue patient's routine Lantus, NovoLog sliding scale as needed. 3. Chronic pain with opiate dependency -Continue OxyContin 20 mg twice daily and Dilaudid 4 mg p.o. every 6 hr as needed for breakthrough pain as patient is now tolerating clear liquid diet. Discontinued IV Dilaudid. 4. Anxiety/ADHD -continue Trintellix and Adderall 5. COPD , present on admission. Stable. -Does not represent COPD exacerbation. -Continue Spiriva, albuterol, and Flovent. 6. Hepatic steatosis with chronic elevated LFTs, present on admission. Presumed stable. -CT abdomen and pelvis demonstrates mild nodular contour unchanged since previous exam. Disposition: Likely to discharge in several days depending on improvement in abdominal pain, nausea, and results of gastric emptying study.] Quality VTE Deep Vein Thrombosis/Pulmonary Embolism Present on Admission: No
[2018-10-09] MEDS: INSULIN GLARGINE 100 UNIT/ML 3ML PEN 30 UNIT SUBCUT (21:03)
[2018-10-10] VITALS (11 sets, daily range): BP systolic 138–163; BP diastolic 70–80; PULSE 52–72; RESP 15–18; TEMP 36.4–36.8; O2SAT 95–100
--- NOTE | 2018-10-10 01:37 | PC.NURSE ---
Addendum entered and electronically signed by Cora Delgado R.N. 10/10/18 06:56: 0645- Periph IV catheter slipped out with water leakage. Arm intact site intact, no swelling. This RN attempted 2 IV insertions w/ no success. Will pass onto day RN. Original Note: 2300- Assumed care of pt; IV fluids running as ordered. Pt denies any pain or nausea at this time; calling appropriately no bed alarm needed. Moving SBA, high fall risk for hx of balance issues & falls. 0240- PO Diluadid given to pt per request. BG 89; pt asymptomatic however gave her cranberry juice to drink and tolerated well. 0500- PO Ativan given for anxiety. Pt now eating pudding/Popsicle and denies any stomach pain or nausea.
[2018-10-10] MEDS: HYDROMORPHONE 4 MG TABLET PO ×2 (02:41→11:13)
[2018-10-10] MEDS: LORazepam 0.5 MG TABLET PO ×2 (05:24→11:16)
[2018-10-10] MEDS: SODIUM CHLORIDE 0.9% 1,000 ML 100 ML IV ×2 (05:24→20:05)
[2018-10-10 06:14] LABS: Add Manual Diff / Slide Review NO; Basophils Absolute Auto 100 /uL (0-100); Basophils Percent Auto 0.5 % (0-2); Eosinophils Absolute Auto 200 /uL (0-450); Eosinophils Percent Auto 1.5 % (2-4); Hematocrit 34.9 % (36-46); Hemoglobin 11.6 g/dL (12.0-16.0); Lymphocytes Absolute Auto 4400 /uL (1100-4500); Lymphocytes Percent Auto 41.5 % (25-40); Mean Corpuscular HGB Conc 33.3 % (30-36); Mean Corpuscular Hemoglobin 30.4 PG (26-34); Mean Corpuscular Volume 91.2 fL (80-100); Monocytes Absolute Auto 600 /uL (0-900); Monocytes Percent Auto 5.8 % (3-14); Neutrophils Absolute Auto 5400 /uL (1500-7000); Neutrophils Percent Auto 50.7 % (50-75); Platelet Count 208 X10^3/uL (150-400); Red Blood Cell Count 3.83 X10^6/uL (4.0-5.2); Red Cell Distribution Width 13.4 % (11.6-14.8); White Blood Cell Count 10.5 X10^3/uL (4.5-11.0)
[2018-10-10 06:20] LABS: Alanine Aminotransferase 58 IU/L (9-52); Albumin 3.7 g/dL (3.5-5.0); Albumin Globulin Ratio 1.1 (1.0-2.8); Alkaline Phosphatase 256 U/L (38-126); Aspartate Aminotransferase 75 IU/L (14-36); BUN Creatinine Ratio 7.1 (6-22); Bilirubin Total 0.4 mg/dL (0.2-1.3); Blood Urea Nitrogen 5 mg/dL (7-17); Calcium 8.8 mg/dL (8.4-10.2); Carbon Dioxide 22 mmol/L (22-32); Chloride 111 mmol/L (98-107); Estimated Glomerular Filt Rate > 60.0 mL/min (>60); Globulin 3.3 g/dL (1.7-4.1); Glucose 71 mg/dL (70-100); HEMOLYSIS < 15 (0-50); Magnesium 1.8 mg/dL (1.6-2.3); Potassium 3.4 mmol/L (3.4-5.1); Sodium 141 mmol/L (137-145)
[2018-10-10] MEDS: PANTOPRAZOLE 40 MG TABLET PO (06:28)
--- NOTE | 2018-10-10 07:19 | PM.PN.1 ---
Subjective Date Patient Seen: 10/10/18 Interval history: Keila Luna is a 53-year-old female with uncontrolled diabetes presented with 2 week history of upper abdominal pain with intractable nausea and vomiting. The patient appears less anxious today and is resting in bed comfortably. She exhibits very tangential thinking and redirects conversation frequently. She is persistently emotionally labile and tearful and endorses depression for which she recently started a new SSRI 3 weeks ago per her psychiatrist. She is tolerating slow advancement of her diet. She also denies headache, chest pain, shortness of breath, fever, chills, dysuria, diarrhea or constipation. She is voiding and eliminating without difficulty. She does report that her stools are hard and formed. CT abdomen and pelvis was discussed which demonstrated moderate fecal load and discussed Relistor for which the patient was in agreement to be given as this may be contributing to her nausea and vomiting. Exam Vital Signs (past 8 hours): - 10/10/18 00:01 10/10/18 01:32 10/10/18 04:00 Temperature 97.5 F L 97.9 F Pulse Rate 72 63 Respiratory Rate 18 18 Blood Pressure 163/80 H 138/75 Pulse Oximetry 99 97 97 Oxygen Delivery Method Room Air Oxygen Flow Rate 0 Narrative Exam Narrative: General: Middle-aged female sitting on bedside acute distress, well-developed, well-nourished, appropriately interactive. HEENT: Normocephalic, atraumatic. External ears without defect. Pupils equal, round, and reactive to light. Anicteric sclerae, moist conjunctivae, and no lid lag. Neck: Supple with full range of motion. No lymphadenopathy or thyromegaly. Cardiovascular: Regular rate and rhythm without murmurs, rubs, or gallops appreciated. Pulmonary: Clear to auscultation bilaterally without crackles, wheezes, or rhonchi. Normal respiratory effort with no use of accessory muscles. Abdomen: Soft, obese, bowel sounds present, nontender , nondistended. No longer wincing to palpation. No hepatosplenomegaly or masses appreciated. Extremities: No clubbing, cyanosis, or edema. Several scattered excoriations over lower extremities bilaterally. Skin: Normal temperature, turgor, and texture; no rash, ulcers, or subcutaneous nodules appreciated. Neurological: Cranial nerves grossly intact. Psychiatric: Emotionally labile, depressed mood, flat affect. Alert and oriented to person, place, and time. Objective Labs Result Diagrams: 10/10/18 05:57 10/10/18 05:57 Labs: Laboratory Results - last 24 hr 10/10/18 10/10/18 05:57 05:57 WBC 10.5 RBC 3.83 L Hgb 11.6 L Hct 34.9 L MCV 91.2 MCH 30.4 MCHC 33.3 RDW 13.4 Plt Count 208 Neut % (Auto) 50.7 Lymph % (Auto) 41.5 H [place] % (Auto) 5.8 Eos % (Auto) 1.5 L Baso % (Auto) 0.5 Neut # (Auto) 5400 Lymph # (Auto) 4400 [place] # (Auto) 600 Eos # (Auto) 200 Baso # (Auto) 100 Sodium 141 Potassium 3.4 Chloride 111 H Carbon Dioxide 22 BUN 5 L Creatinine 0.70 Estimated GFR > 60.0 BUN/Creatinine Ratio 7.1 Glucose 71 D Calcium 8.8 Magnesium 1.8 Total Bilirubin 0.4 AST 75 H ALT 58 H Alkaline Phosphatase 256 H Total Protein 7.0 Albumin 3.7 Globulin 3.3 Albumin/Globulin Ratio 1.1 Assessment & Plan Assessment & Plan narrative: Keila Luna is a 53-year-old female with uncontrolled diabetes presented with 2 week history of upper abdominal pain with intractable nausea and vomiting. 1. Intractable abdominal pain and vomiting, present on admission. Improving. -Etiology unclear but likely secondary to gastroparesis and chronic narcotic use. -EGD 10/08/[address] Montanez revealed only mild antral gastritis without ulceration. -Lipase normal. -CT abdomen and pelvis unremarkable -History of remote cholecystectomy; history of esophageal stricture with dilatation. -Continue IV hydration. -Plan to slowly advance diet to full liquid and soft as tolerated. -IV Reglan ordered 5 mg q.6 hours, IV Zofran 4 mg as needed. ordered Ativan 0.5 mg 3 times daily as needed for anxiety and nausea/vomiting. -Ordered relistor 12 mg subcutaneous x 1 for opiate induced constipation. -Ordered a gastric emptying study to assess for diabetic gastroparesis which cannot be completed until 10/11/2018. 2. Type 2 diabetes, insulin requiring, uncontrolled, present on admission. Stable. -Glucose with wild fluctuations up to 300 range. -Continue patient's routine Lantus, NovoLog sliding scale as needed. 3. Chronic pain with opiate dependency, present on admission. Ongoing. -Continue OxyContin 20 mg twice daily and Dilaudid 4 mg p.o. every 6 hr as needed for breakthrough pain as patient is now tolerating clear liquid diet. Discontinued IV Dilaudid. 4. Depression, anxiety, and ADHD, present on admission. Stable. -Continue Trintellix and Adderall. 5. COPD , present on admission. Stable. -Does not represent COPD exacerbation. -Continue Spiriva, albuterol, and Flovent. 6. Hepatic steatosis with chronic elevated LFTs, present on admission. Presumed stable. -CT abdomen and pelvis demonstrates mild nodular contour unchanged since previous exam. Disposition: Likely to discharge in 1-2 days depending on improvement in abdominal pain, nausea, and results of gastric emptying study. Quality VTE Deep Vein Thrombosis/Pulmonary Embolism Present on Admission: No
[2018-10-10] MEDS: OXYCODONE ER 20 MG TAB PO ×2 (08:00→20:02)
[2018-10-10] MEDS: VORTIOXETINE 1 EACH PO (09:06)
[2018-10-10] MEDS: ENOXAPARIN 40 MG/0.4 ML SYRINGE SUBCUT (09:07)
[2018-10-10] MEDS: METHYLNALTREXONE 12 MG/0.6 ML VIAL SUBCUT (09:07)
[2018-10-10] MEDS: Cyclosporine (Restasis) 1 DROP 1 EACH EYE-BOTH ×2 (09:08→20:02)
[2018-10-10] MEDS: cloNIDine 0.1 MG TABLET 0.2 MG PO ×2 (09:09→20:04)
--- NOTE | 2018-10-10 10:21 | PC.NURSE ---
Addendum entered by Elham Rodriguez R.N. 10/10/18 15:28: GI - after ativan and dilaudid, pt was calmer, discussed with that Selene from [facility] called and plan for test at 8am tomorrow, and pt placed npo after 1999 tonight, as pt had low cbg today, will review the lantus dose and change to q6 cbg checks, informed pt that she will be npo later tonight and that she would have to have an egg salad sandwich tomorrow, assisted pt to br w/loose stool again, no incontinence, pt is calmer and visiting with son, noted incr swelling at iv site lue, ivf stopped and Sophia [facility] contacted who will come up to evaluate Original Note: Addendum entered by Elham Rodriguez R.N. 10/10/18 11:20: GI - pt up to bsc with 2nd liq stool with some incontinence, I knew this would happen, anxious, tearful and tremulous, states diffuse lower abd discomfort and nausea, req ativan and given 0.5mg with 4mg po dilaudid. Original Note: AM NOTE - pt is alert, mildly anxious at beside report with hand tremor, cbg was 77 this am and pt was given juice and crackers, able eat complete breakfast, abd discomfort 7 on scale 0/10, DI nurse in and new iv started, Dr. Kingsley in and admin the relister injection for constipation, after injection pt was up to br and had a liq, partially incontinent brown stool.
[2018-10-10] MEDS: TIOTROPIUM BROMIDE 18 MCG INHALER INH (10:41)
[2018-10-10] MEDS: FLUTICASONE 110MCG HFA 120 PUFF INH (10:42)
--- NOTE | 2018-10-10 12:27 | PM.CN ---
History of Present Illness Chief complaint: THROWING UP BILE/BLOOD,ABD PAIN [facility] Medical History ADHD (attention deficit hyperactivity disorder) (Chronic) Anxiety (Chronic) COPD (chronic obstructive pulmonary disease) (Chronic) Cataract (Chronic) Chronic cough (Chronic) Chronic headaches (Chronic) Depression (Chronic) Diabetes mellitus (Chronic 2003) Fibromyalgia (Chronic) GERD (gastroesophageal reflux disease) (Chronic 1980) Hyperlipidemia (Chronic 1991) Hypertension (Chronic 1991) Lumbar spine pain (Chronic) PTSD (post-traumatic stress disorder) (Chronic) Sarcoidosis (Chronic) Scoliosis (Chronic) Shoulder pain (Chronic) Spinal stenosis (Chronic) Cervical cancer (Resolved 1991) Chicken pox (Resolved) Esophageal stricture (Resolved 09/2017) History of blood transfusion (Resolved ~07/1981) Kidney stones (Resolved) Pancreatitis (Resolved 2010) Surgical History Status post cataract extraction (Acute) Anesthesia (Resolved) History of tonsillectomy (Resolved 1967) S/P dilatation of esophageal stricture (Resolved 09/2017) Status post delivery (Resolved 05/02/85) Status post cholecystectomy (Resolved 02/1985) Status post hysterectomy (Resolved 1986) Family History Brother Age: 61 Diabetes mellitus Child Age: 37 Asthma Child Heart defect Father Age: 81 Hypertension Cirrhosis of liver Mother Heart disease High cholesterol Amyloidosis Sister Age: 58 Diabetes mellitus Heart disease Sister Heart disease Social History household members: spouse Smoking Status: Former smoker alcohol intake: never Family History Brother Age: 61 Diabetes mellitus Child Age: 37 Asthma Child Heart defect Father Age: 81 Hypertension Cirrhosis of liver Mother Heart disease High cholesterol Amyloidosis Sister Age: 58 Diabetes mellitus Heart disease Sister Heart disease Social History household members: spouse Smoking Status: Former smoker alcohol intake: never Meds Home Medications Medication Instructions Recorded Confirmed Type aspirin 81 mg PO QDAY #30 tab 04/20/16 10/06/18 Rx pantoprazole [Protonix] 40 mg PO QDAY #90 tab 09/14/16 10/06/18 Rx epinephrine 0.3 mg IM PRN PRN #0 05/11/17 10/06/18 History levomefolate calcium 15 mg PO QDAY #90 cap 07/12/17 10/06/18 Rx [L-Methylfolate] naproxen [Naprosyn] 500 mg PO BID PRN #60 tab 08/17/17 10/06/18 Rx Spiriva with HandiHaler 18 mcg INH QDAY #30 cap 08/23/17 10/06/18 Rx Flovent HFA 2 puff INH BID #1 inh 09/04/17 10/06/18 Rx ketoconazole 1 nathan TOPICAL BID #30 gm 09/11/17 10/06/18 Rx dicyclomine 10 mg PO QIDP PRN #0 10/05/17 10/06/18 History Ventolin HFA 1 - 2 puff INH 4-6HRS #1 inh 10/18/17 10/06/18 Rx Restasis 1 drp OPHTH BID #0 11/09/17 10/06/18 History hydromorphone 4 mg PO PRN PRN #0 11/09/17 10/06/18 History ondansetron [Zofran ODT] 4 mg SUBLINGUAL Q6HP PRN #30 odt 11/12/17 10/06/18 Rx 1 tab PO DAILY 01/18/18 10/06/18 History vitamin,calcium,cfmfdwfj-gpvd-qpiaw acid tablet insulin glargine (U-100) 100 30 unit SUBCUT HS #1 ml 05/31/18 10/06/18 Rx unit/mL (3 mL) subcutaneous pen insulin lispro (U- 100) 100 10 - 15 unit SUBCUT ACHS #1 syr 05/31/18 10/06/18 Rx unit/mL subcutaneous pen clonidine HCl 0.2 mg tablet 0.2 mg PO BID #60 tab 08/13/18 10/06/18 Rx propranolol 20 mg tablet 20 mg PO TID PRN #10 tab 08/13/18 10/06/18 Rx tizanidine 4 mg tablet 4 mg PO Q8H PRN #90 tab 08/27/18 10/06/18 Rx dextroamphetamine-amphetamine ER 10 mg PO QAM #30 cap 08/29/18 10/06/18 Rx 10 mg 24hr capsule,extend release CMP Testosterone 0.2% See Rx Instructions .ROUTE 09/24/18 10/06/18 Rx .COMPLEX #30 gram nystatin-triamcinolone 100,000 See Rx Instructions TOP BID #30 09/24/18 10/06/18 Rx unit/gram-0.1 % topical ointment gram estradiol 0.01% (0.1 mg/gram) See Rx Instructions VAG DAILY 09/25/18 10/06/18 Rx vaginal cream #42.5 gram glucagon (human recombinant) 1 mg SUBCUT Q20M PRN 10/06/18 10/06/18 History [Glucagon Emergency Kit (human)] oxycodone [OxyContin] 20 mg PO Q12H 10/06/18 10/06/18 History vortioxetine [Trintellix] 1 tab PO DAILY 10/06/18 10/06/18 History vortioxetine 10 mg tablet 10 mg PO DAILY #30 tab 10/08/18 Rx Allergies Allergy/AdvReac Type Severity Reaction Status Date / Time venom-honey bee Allergy Severe SWOLLEN Verified 10/08/18 16:03 [bee venom (honey bee)] TONGUE AND THROAT BUT NOT ANAPHALAXIS pregabalin [From LYRICA] Allergy Intermediate 'WELTS ON Verified 10/08/18 16:03 MY BODY' cyclobenzaprine Allergy Unknown Verified 10/08/18 16:03 [From FLEXERIL] gabapentin Allergy Unknown MY Verified 10/08/18 16:03 THOUGHT IT MADE ME ACT WERID hydroxyzine AdvReac Unknown PT STATES Verified 10/08/18 16:03 EYES DRIES ME UP venlafaxine AdvReac Unknown MADE MY Verified 10/08/18 16:03 BLOOD PRESSURE HIGH trazodone AdvReac heart Verified 10/08/18 16:03 palpatations MALIN NICOLAS Allergy Severe SWELLING Uncoded 10/06/18 12:09 FACE AND THROAT LACTOSE INTOLERANT AdvReac Unknown Uncoded 10/06/18 12:09 Exam Vital Signs (past 8 hours): - 10/10/18 07:53 10/10/18 09:00 10/10/18 10:43 Temperature 97.6 F Pulse Rate 52 L 52 L Respiratory Rate 16 15 Blood Pressure 143/78 H Pulse Oximetry 100 95 97 10/10/18 10:44 10/10/18 11:00 Temperature 98.2 F Pulse Rate 52 L 61 Respiratory Rate 15 16 Blood Pressure 157/72 H Pulse Oximetry 97 100 Oxygen Delivery Method Room Air Oxygen Flow Rate 0 Objective Labs Result Diagrams: 10/10/18 05:57 10/10/18 05:57 Labs: Laboratory Results - last 24 hr 10/10/18 10/10/18 05:57 05:57 WBC 10.5 RBC 3.83 L Hgb 11.6 L Hct 34.9 L MCV 91.2 MCH 30.4 MCHC 33.3 RDW 13.4 Plt Count 208 Neut % (Auto) 50.7 Lymph % (Auto) 41.5 H [place] % (Auto) 5.8 Eos % (Auto) 1.5 L Baso % (Auto) 0.5 Neut # (Auto) 5400 Lymph # (Auto) 4400 [place] # (Auto) 600 Eos # (Auto) 200 Baso # (Auto) 100 Sodium 141 Potassium 3.4 Chloride 111 H Carbon Dioxide 22 BUN 5 L Creatinine 0.70 Estimated GFR > 60.0 BUN/Creatinine Ratio 7.1 Glucose 71 D Calcium 8.8 Magnesium 1.8 Total Bilirubin 0.4 AST 75 H ALT 58 H Alkaline Phosphatase 256 H Total Protein 7.0 Albumin 3.7 Globulin 3.3 Albumin/Globulin Ratio 1.1 Assessment & Plan Assessment & Plan narrative: The patient called the [facility] at [facility] to report that she is on the inpatient medical floor and requested a visit from this TREE KILLER if possible. This TREE KILLER met with the patient at 14:40 in her room. Her son was present. The patient described severe abdominal pain and report occasional anxiety exacerbated by the pain. She reported that testing is continuing and does not know the cause at present, which also concerns her. We reviewed breathing relaxation, self talk and positive distractions that she can use to help manage the anxiety. The patient has an appointment tomorrow with this TREE KILLER but might not be able to attend. Time Spent With Patient Time with patient: less than 15 minutes
--- NOTE | 2018-10-10 12:32 | P.CONS_ITS ---
History of Present Illness Chief complaint: THROWING UP BILE/BLOOD,ABD PAIN [facility] Medical History ADHD (attention deficit hyperactivity disorder) (Chronic) Anxiety (Chronic) COPD (chronic obstructive pulmonary disease) (Chronic) Cataract (Chronic) Chronic cough (Chronic) Chronic headaches (Chronic) Depression (Chronic) Diabetes mellitus (Chronic 2003) Fibromyalgia (Chronic) GERD (gastroesophageal reflux disease) (Chronic 1980) Hyperlipidemia (Chronic 1991) Hypertension (Chronic 1991) Lumbar spine pain (Chronic) PTSD (post-traumatic stress disorder) (Chronic) Sarcoidosis (Chronic) Scoliosis (Chronic) Shoulder pain (Chronic) Spinal stenosis (Chronic) Cervical cancer (Resolved 1991) Chicken pox (Resolved) Esophageal stricture (Resolved 09/2017) History of blood transfusion (Resolved ~07/1981) Kidney stones (Resolved) Pancreatitis (Resolved 2010) Surgical History Status post cataract extraction (Acute) Anesthesia (Resolved) History of tonsillectomy (Resolved 1967) S/P dilatation of esophageal stricture (Resolved 09/2017) Status post delivery (Resolved 05/02/85) Status post cholecystectomy (Resolved 02/1985) Status post hysterectomy (Resolved 1986) Family History Brother Age: 61 Diabetes mellitus Child Age: 37 Asthma Child Heart defect Father Age: 81 Hypertension Cirrhosis of liver Mother Heart disease High cholesterol Amyloidosis Sister Age: 58 Diabetes mellitus Heart disease Sister Heart disease Social History household members: spouse Smoking Status: Former smoker alcohol intake: never Family History Brother Age: 61 Diabetes mellitus Child Age: 37 Asthma Child Heart defect Father Age: 81 Hypertension Cirrhosis of liver Mother Heart disease High cholesterol Amyloidosis Sister Age: 58 Diabetes mellitus Heart disease Sister Heart disease Social History household members: spouse Smoking Status: Former smoker alcohol intake: never Meds Home Medications Medication Instructions Recorded Confirmed Type aspirin 81 mg PO QDAY #30 tab 04/20/16 10/06/18 Rx pantoprazole [Protonix] 40 mg PO QDAY #90 tab 09/14/16 10/06/18 Rx epinephrine 0.3 mg IM PRN PRN #0 05/11/17 10/06/18 History levomefolate calcium 15 mg PO QDAY #90 cap 07/12/17 10/06/18 Rx [L-Methylfolate] naproxen [Naprosyn] 500 mg PO BID PRN #60 tab 08/17/17 10/06/18 Rx Spiriva with HandiHaler 18 mcg INH QDAY #30 cap 08/23/17 10/06/18 Rx Flovent HFA 2 puff INH BID #1 inh 09/04/17 10/06/18 Rx ketoconazole 1 nathan TOPICAL BID #30 gm 09/11/17 10/06/18 Rx dicyclomine 10 mg PO QIDP PRN #0 10/05/17 10/06/18 History Ventolin HFA 1 - 2 puff INH 4-6HRS #1 inh 10/18/17 10/06/18 Rx Restasis 1 drp OPHTH BID #0 11/09/17 10/06/18 History hydromorphone 4 mg PO PRN PRN #0 11/09/17 10/06/18 History ondansetron [Zofran ODT] 4 mg SUBLINGUAL Q6HP PRN #30 odt 11/12/17 10/06/18 Rx 1 tab PO DAILY 01/18/18 10/06/18 History vitamin,calcium,svdkmuso-bwyu-xiqbi acid tablet insulin glargine (U-100) 100 30 unit SUBCUT HS #1 ml 05/31/18 10/06/18 Rx unit/mL (3 mL) subcutaneous pen insulin lispro (U- 100) 100 10 - 15 unit SUBCUT ACHS #1 syr 05/31/18 10/06/18 Rx unit/mL subcutaneous pen clonidine HCl 0.2 mg tablet 0.2 mg PO BID #60 tab 08/13/18 10/06/18 Rx propranolol 20 mg tablet 20 mg PO TID PRN #10 tab 08/13/18 10/06/18 Rx tizanidine 4 mg tablet 4 mg PO Q8H PRN #90 tab 08/27/18 10/06/18 Rx dextroamphetamine-amphetamine ER 10 mg PO QAM #30 cap 08/29/18 10/06/18 Rx 10 mg 24hr capsule,extend release CMP Testosterone 0.2% See Rx Instructions .ROUTE 09/24/18 10/06/18 Rx .COMPLEX #30 gram nystatin-triamcinolone 100,000 See Rx Instructions TOP BID #30 09/24/18 10/06/18 Rx unit/gram-0.1 % topical ointment gram estradiol 0.01% (0.1 mg/gram) See Rx Instructions VAG DAILY 09/25/18 10/06/18 Rx vaginal cream #42.5 gram glucagon (human recombinant) 1 mg SUBCUT Q20M PRN 10/06/18 10/06/18 History [Glucagon Emergency Kit (human)] oxycodone [OxyContin] 20 mg PO Q12H 10/06/18 10/06/18 History vortioxetine [Trintellix] 1 tab PO DAILY 10/06/18 10/06/18 History vortioxetine 10 mg tablet 10 mg PO DAILY #30 tab 10/08/18 Rx Allergies Allergy/AdvReac Type Severity Reaction Status Date / Time venom-honey bee Allergy Severe SWOLLEN Verified 10/08/18 16:03 [bee venom (honey bee)] TONGUE AND THROAT BUT NOT ANAPHALAXIS pregabalin [From LYRICA] Allergy Intermediate 'WELTS ON Verified 10/08/18 16:03 MY BODY' cyclobenzaprine Allergy Unknown Verified 10/08/18 16:03 [From FLEXERIL] gabapentin Allergy Unknown MY Verified 10/08/18 16:03 THOUGHT IT MADE ME ACT WERID hydroxyzine AdvReac Unknown PT STATES Verified 10/08/18 16:03 EYES DRIES ME UP venlafaxine AdvReac Unknown MADE MY Verified 10/08/18 16:03 BLOOD PRESSURE HIGH trazodone AdvReac heart Verified 10/08/18 16:03 palpatations MALIN NICOLAS Allergy Severe SWELLING Uncoded 10/06/18 12:09 FACE AND THROAT LACTOSE INTOLERANT AdvReac Unknown Uncoded 10/06/18 12:09 Exam Vital Signs (past 8 hours): - 10/10/18 07:53 10/10/18 09:00 10/10/18 10:43 Temperature 97.6 F Pulse Rate 52 L 52 L Respiratory Rate 16 15 Blood Pressure 143/78 H Pulse Oximetry 100 95 97 10/10/18 10:44 10/10/18 11:00 Temperature 98.2 F Pulse Rate 52 L 61 Respiratory Rate 15 16 Blood Pressure 157/72 H Pulse Oximetry 97 100 Oxygen Delivery Method Room Air Oxygen Flow Rate 0 Objective Labs Result Diagrams: 10/10/18 05:57 10/10/18 05:57 Labs: Laboratory Results - last 24 hr 10/10/18 10/10/18 05:57 05:57 WBC 10.5 RBC 3.83 L Hgb 11.6 L Hct 34.9 L MCV 91.2 MCH 30.4 MCHC 33.3 RDW 13.4 Plt Count 208 Neut % (Auto) 50.7 Lymph % (Auto) 41.5 H [place] % (Auto) 5.8 Eos % (Auto) 1.5 L Baso % (Auto) 0.5 Neut # (Auto) 5400 Lymph # (Auto) 4400 [place] # (Auto) 600 Eos # (Auto) 200 Baso # (Auto) 100 Sodium 141 Potassium 3.4 Chloride 111 H Carbon Dioxide 22 BUN 5 L Creatinine 0.70 Estimated GFR > 60.0 BUN/Creatinine Ratio 7.1 Glucose 71 D Calcium 8.8 Magnesium 1.8 Total Bilirubin 0.4 AST 75 H ALT 58 H Alkaline Phosphatase 256 H Total Protein 7.0 Albumin 3.7 Globulin 3.3 Albumin/Globulin Ratio 1.1 Assessment & Plan Assessment & Plan narrative: The patient called the [facility] at [facility] to report that she is on the inpatient medical floor and requested a visit from this CASE MANAGEMENT SOCIAL WORKER if possible. This CASE MANAGEMENT SOCIAL WORKER met with the patient at 14:40 in her room. Her son was present. The patient described severe abdominal pain and report occasional anxiety exacerbated by the pain. She reported that testing is continuing and does not know the cause at present, which also concerns her. We reviewed breathing relaxation, self talk and positive distractions that she can use to help manage the anxiety. The patient has an appointment tomorrow with this CASE MANAGEMENT SOCIAL WORKER but might not be able to attend. Time Spent With Patient Time with patient: less than 15 minutes
[2018-10-10] MEDS: INSULIN ASPART 100 UNIT/ML INSULN PEN SUBCUT ×2 (17:15→20:56)
--- NOTE | 2018-10-10 17:52 | PC.NURSE ---
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
[2018-10-10] MEDS: TIZANIDINE 4 MG TABLET PO (19:21)
[2018-10-11] VITALS: BP 118/72; PULSE 59; RESP 18; TEMP 36.6; O2SAT 96
[2018-10-11 00:31] VITALS: O2SAT 96
[2018-10-11] MEDS: LORazepam 0.5 MG TABLET PO (00:41)
[2018-10-11] MEDS: HYDROMORPHONE 4 MG TABLET PO ×2 (00:42→06:44)
[2018-10-11 04:00] VITALS: BP 129/68; PULSE 53; RESP 18; TEMP 36.1; O2SAT 97
[2018-10-11] MEDS: SODIUM CHLORIDE 0.9% 1,000 ML 100 ML IV (06:39)
[2018-10-11] MEDS: PANTOPRAZOLE 40 MG TABLET PO (06:44)
[2018-10-11 08:00] VITALS: BP 152/75; PULSE 53; RESP 16; TEMP 36.6; O2SAT 98; O2SAT 99
[2018-10-11] MEDS: ENOXAPARIN 40 MG/0.4 ML SYRINGE SUBCUT (11:20)
[2018-10-11] MEDS: ONDANSETRON 4 MG/2 ML INJ IV (11:21)
[2018-10-11] MEDS: HYDROMORPHONE 0.5 MG INJ 1 MG IV (11:32)
[2018-10-11 12:00] VITALS: BP 158/93; PULSE 16; RESP 16; TEMP 36.1; O2SAT 100
[2018-10-11] MEDS: Cyclosporine (Restasis) 1 DROP 1 EACH EYE-BOTH (13:11)
[2018-10-11] MEDS: OXYCODONE ER 20 MG TAB PO (13:12)
[2018-10-11] MEDS: cloNIDine 0.1 MG TABLET 0.2 MG PO (13:12)
[2018-10-11] MEDS: VORTIOXETINE 1 EACH PO (13:13)
[2018-10-11] MEDS: INSULIN ASPART 100 UNIT/ML INSULN PEN SUBCUT (13:14)
--- NOTE | 2018-10-11 15:18 | CM.MNRNOTE ---
Patient given her home trintellix that was being held in pharmacy at discharge.
--- NOTE | 2018-10-12 07:36 | P.DS_ITS ---
History of Present Illness Date Patient Seen: 10/06/18 Chief complaint: THROWING UP BILE/BLOOD,ABD PAIN Narrative: Written by Dr. Ibanez: This is a 53-year-old female, who looks much older than her physiologic age, presenting with probable diabetic gastroparesis symptoms. She describes 1.5 weeks of progressively worsening abdominal pain with nausea and ?dry heaves?. She insists that when she eats she does not vomit but she cannot recall eating anything for the last 3 days because ?I can not keep it down.? She reports that her last A1c a few weeks ago was above 14 and that her blood sugars are frequently above 600, never lower than 300s. She is on a Lantus and Humalog regimen that is managed by endocrinology, with no recent increases in dosing despite reported out of control sugars at home. She will be following up later this week with endocrinology in [place]. Her current dose is Lantus at HS 25-33 units and Humalog 44 units with each meal. She has never had gastropares is. She has had her gallbladder out and has had pancreatitis in the past but CT scan and laboratory testing at this time do not show that to be present. She also has a history of esophageal strictures requiring dilation, but again those symptoms are different. She also describes chronic heat intolerance, dark urine and bilateral chest pain for the last week. She describes hematemesis at home b ut no vomiting has been observed in the hospital so far. About 2 weeks ago the [facility] in [place] changed her from morphine long-acting to oxycodone 20 mg twice a day due to progressive lack of effect from the morphine. She also takes Dilaudid 4 mg as needed. She appears to be in withdrawal with scratch madison throughout and fidgeting along with complaints of overheating. She insists that the symptoms are not new, and are present when she is able to take her opiates and keep them down. She tells me that she can go for 3 days without her pain medicine without any withdrawal symptoms. She takes the high-dose opiates for chronic pain of spinal stenosis, neck pain, arm pain related to sarcoidosis. Discharge Providers Date of admission: 10/06/18 16:11 Discharge Date: 10/11/18 Primary care physician: Ben Winchester MD Consults: 10/07/18 16:27 Consult to Physician Routine Comment: Consulting Provider: Malena Montanez Reason for consultation: abdominal pain Has provider been notified: Yes Discharge provider: Tg Kingsley DO Summary Discharge Diagnosis: 1. Intractable abdominal pain and vomiting, present on admission. Nausea and vomiting resolved. Abdominal pain persistent. 2. Type 2 diabetes, insulin requiring, uncontrolled, present on admission. Stable. 3. Chronic pain with opiate dependency, present on admission. Ongoing. 4. Depression, anxiety, and ADHD, present on admission. Stable. 5. COPD , present on admission. Stable. 6. Hepatic steatosis with chronic elevated LFTs, present on admission. Presumed stable. Hospital Course: I was notified by nursing staff that the patient's spouse had made a threat against me stating that Dr. Teetee capellan is going to . I have only had 1 interaction with the patient's spouse on 10/09/2018 at which time he was somewhat short but there was no significant interaction or aggression displayed at that time. Notified nursing fermenting cellars supervisor who notified CNO, head of security, and [employer]. Several discussions were had with the patient's spouse. [place] police were called to report threat. All parties statements were documented and a police report filed. The patient's spouse apologized to nursing staff and CNO. The patient was not personally examined by myself but by the [employer] Dr. Cintron. He also informed her of her gastric emptying study results demonstrating gastroparesis, our further recommendations to have tighter glycemic control and titrate down on narcotic doses, a prescription was written for Reglan and she was instructed to follow up with her PCP. She was discharged in stable condition. Keila Luna is a 53-year-old female with uncontrolled diabetes presented with 2 week history of upper abdominal pain with intractable nausea and vomiting. 1. Intractable abdominal pain and vomiting, present on admission. Nausea and vomiting resolved. Abdominal pain persistent. -Etiology multifactorial and secondary to gastroparesis which is most certainly due to significantly uncontrolled diabetes and high-dose narcotics. -EGD 10/08/[address] Montanez revealed reactive mild antral gastritis with reacvtive gastropathy likely due to vomiting and without ulceration. -Lipase normal. -CT abdomen and pelvis unremarkable. -History of remote cholecystectomy; history of esophageal stricture with dilatation. -Continued IV hydration until adequately hydrated. -Slowly advance diet as tolerated and tolerating diabetic diet prior to discharge. -Received IV Reglan 5 mg every 6 hours, Zofran 4 mg IV every 4 hr as needed and Ativan 0.5 mg 3 times daily as needed for anxiety and nausea/vomiting. Discharged with prescription for Reglan 10 mg every 6 hr and instructed to follow up with PCP. -Received relistor 12 mg subcutaneous x 1 for opiate induced constipation with good amount of bowel movement. -Gastric emptying study demonstrated delayed gastric emptying. Compared to last exam on 08/26/2010, prolonged gastric retention has worsened. 2. Type 2 diabetes, insulin requiring, uncontrolled, present on admission. Stable. -Glucose with wild fluctuations up to 300 range. -Continued patient's routine Lantus, NovoLog sliding scale as needed. -Recommend tighter glycemic control and possible referral to Endocrinology as patient is a brittle diabetic and glucose fluctuates readily which is very difficult to control. 3. Chronic pain with opiate dependency, present on admission. Ongoing. -Continued home OxyContin 20 mg twice daily and Dilaudid 4 mg p.o. every 6 hr as needed for breakthrough pain. Discontinued IV Dilaudid once tolerating p.o. intake. Recommend titrating down on high-dose narcotics as this is playing a significant role in opiate induced constipation, gastroparesis and gastric/intestinal motility. 4. Depression, anxiety, and ADHD, present on admission. Stable. -Continued home Trintellix and Adderall. 5. COPD , present on admission. Stable. -Does not represent COPD exacerbation. -Continued Spiriva, albuterol, and Flovent. 6. Hepatic steatosis with chronic elevated LFTs, present on admission. Presumed stable. -CT abdomen and pelvis demonstrates mild nodular contour unchanged since previous exam. -Recommend outpatient follow-up with hepatology. Status at Discharge Functional status at discharge: independent ambulation Overall status at discharge: patient is back to baseline Exam Vital Signs (past 8 hours): Oxygen Delivery Method Room Air Oxygen Flow Rate 0 Narrative Exam Narrative: Dr. Cintron PE: General: Middle-aged female, appears anxious. HEENT: Normocephalic, atraumatic. External ears without defect. Pupils pinpoint, equal, round, and reactive to light. Anicteric sclerae, moist conjunctivae, and no lid lag. Neck: Supple with full range of motion. No lymphadenopathy. Cardiovascular: Regular rate and rhythm without murmurs, rubs, or gallops appreciated. Pulmonary: Clear to auscultation bilaterally without crackles, wheezes, or rhonchi. Normal respiratory effort with no use of accessory muscles. Abdomen: Soft, obese, hypoactive bowel sounds, diffuse mild tenderness throughout abdomen nothing localized, nondistended. Extremities: No clubbing, cyanosis, or edema. Skin: Normal temperature, turgor, and texture; no rash, ulcers, or subcutaneous nodules appreciated. Neurological: Cranial nerves grossly intact. Psychiatric: Depressed mood and anxious. Alert and oriented to person, place, and time. Objective Labs Result Diagrams: 10/10/18 05:57 10/10/18 05:57 Discharge Plan Discharge Plan Patient Disposition: Home Discharge comment: You are being discharged home. You have gastroparesis which is slow emptying of your stomach likely from both your uncontrolled diabetes mellitus type 2 and high dose narcotics. Recommend tight control of diabetes mellitus type 2 and titrating down on narcotic doses much as possible. You have been prescribed Reglan 10 mg every 6 hours to help with your gastroparesis. Please follow-up with your PCP, Dr. Winchester, at his next available appointment. Discharge Med Rec/Prescriptions Prescriptions: New metoclopramide HCl 10 mg tablet 10 mg PO Q6H Qty: 30 RF: 0 Continued prenat.vits,jeremy,kfm-jrsr-hghoj tablet 1 tab PO DAILY RF: 0 dextroamphetamine-amphetamine [Adderall XR] 10 mg capsule,extended release 24hr 10 mg PO QAM Qty: 30 RF: 0 aspirin 81 MG tablet,delayed release (DR/EC) 81 mg PO QDAY Qty: 30 RF: 0 pantoprazole [Protonix] 40 MG tablet,delayed release (DR/EC) 40 mg PO QDAY Qty: 90 RF: 3 epinephrine 0.3 MG/0.3 ML auto-injector 0.3 mg IM PRN PRN (Reason: Anaphylaxis) Qty: 0 RF: 0 levomefolate calcium [L-Methylfolate] 15 MG tablet 15 mg PO QDAY Qty: 90 RF: 0 naproxen [Naprosyn] 500 MG tablet 500 mg PO BID PRNQty: 60 RF: 0 Spiriva with HandiHaler 18 MCG capsule, w/inhalation device 18 mcg INH QDAY Qty: 30 RF: 12 Flovent HFA 12 GM HFA aerosol inhaler 2 puff INH BID Qty: 1 RF: 11 ketoconazole 2 % cream 1 nathan Topical BID Qty: 30 RF: 0 dicyclomine 10 MG capsule 10 mg PO QIDP PRN (Reason: Inflammation) Qty: 0 RF: 0 Ventolin HFA 90 MCG/PUFF HFA aerosol inhaler 1 - 2 puff INH 4-6HRS Qty: 1 RF: 11 Restasis 1 EACH dropperette 1 drp OPHTH BID Qty: 0 RF: 0 hydromorphone 4 MG tablet 4 mg PO PRN PRN (Reason: Back Pain) Qty: 0 RF: 0 ondansetron [Zofran ODT] 4 MG tablet,disintegrating 4 mg Sublingual Q6HP PRNQty: 30 RF: 3 insulin glargine [Lantus Solostar U-100 Insulin] 100 unit/mL (3 mL) insulin pen 30 unit SUBCUT HS Qty: 1 RF: 3 insulin lispro [Humalog KwikPen Insulin] 100 unit/mL insulin pen 10 - 15 unit SUBCUT ACHS Qty: 1 RF: 3 tizanidine 4 mg tablet 4 mg PO Q8H PRN (Reason: muscle spasticity) Qty: 90 RF: 1 Trintellix 10 mg tablet 10 mg PO DAILY Qty: 30 RF: 0 propranolol 20 mg tablet 20 mg PO TID PRN (Reason: anxiety) Qty: 10 RF: 11 clonidine HCl 0.2 mg tablet 0.2 mg PO BID Qty: 60 RF: 5 nystatin-triamcinolone 100,000-0.1 unit/gram-% ointment See Rx Instructions TOP BID Qty: 30 RF: 0 CMP Testosterone 0.2% See Rx Instructions .ROUTE .COMPLEX Qty: 30 RF: 3 estradiol 0.01 % (0.1 mg/gram) cream See Rx Instructions VAG DAILY Qty: 42.5 RF: 3 oxycodone [OxyContin] 20 mg Tablet,Oral Only,Ext.Rel.12 Hr 20 mg PO Q12H RF: 0 vortioxetine 10 mg tablet 1 tab PO DAILY RF: 0 Glucagon Emergency Kit (human) 1 mg Recon Soln 1 mg SUBCUT Q20M PRN (Reason: Hypoglycemia) RF: 0 Follow up/Referrals: Ben Winchester MD [Primary Care Provider] - 2 Weeks (October 16 @ 1430) Provider Discharge Instructions Diet: Carb-consistent/Diabetic Activity: Activity as tolerated. Visit Report/Discharge Packet Instructions: DI for Gastroparesis, Metoclopramide Discharge Data Primary Care Provider: Ben Winchester Attending Provider: Bibiana Ibanez Admit Date/Time: 10/06/18 16:11 Discharges patient from system. Discharge Date/Time: 10/11/18 16:08 Quality VTE Deep Vein Thrombosis/Pulmonary Embolism Present on Admission: No
== END 2018-10-11 16:08 | disposition home or self-care (01) | DRG 392 ==
LOC: ED 15:52 → AC 10-07 07:37
PROVIDERS: Emergency Medicine; Internal Medicine; Surgery; Admitting Provider Family Medicine; Emergency Provider Internal Medicine; PCP Student in an Organized Health Care Education/Training Program; Visit Provider Family Medicine
PROC: 0DJ08ZZ Inspection of Upper Intestinal Tract, Via Natural or Artificial Opening Endoscopic (ICD-10-PCS; CPT 43235; principal; 2018-10-08 17:00)
DX: R11.2 Nausea with vomiting, unspecified (principal); F11.20 Opioid dependence, uncomplicated; R10.9 Unspecified abdominal pain; K29.70 Gastritis, unspecified, without bleeding; K22.2 Esophageal obstruction; J44.9 Chronic obstructive pulmonary disease, unspecified; E11.65 Type 2 diabetes mellitus with hyperglycemia; Z79.4 Long term (current) use of insulin; F41.9 Anxiety disorder, unspecified; M79.7 Fibromyalgia; Z87.891 Personal history of nicotine dependence; G89.29 Other chronic pain; K76.0 Fatty (change of) liver, not elsewhere classified
CPT/HCPCS: 43239; 36415; 36591; 51798; 74177; 78264; 80048; 80053; 82150; 82962; 83036; 83690; 83735; 84443; 84484; 85025; 85610; 85730; 93005; 93010; 94640; 94760; 96361; 96374; 96375; 96376; 99232; 99283; 99285; A9541; C9113; J1170; J1650; J2060; J2405; J2704; J2765; Q9967

== ENCOUNTER → 2018-12-05 14:29 | Outpatient (CLI) | payer OTHER, MEDICAID, SELFPAY ==
[2018-12-05 15:13] LABS: Creatinine Urine Random 91.9 mg/dL
[2018-12-05 15:13] LABS: Add Manual Diff / Slide Review NO; Basophils Absolute Auto 100 /uL (0-100); Basophils Percent Auto 0.6 % (0-2); Eosinophils Absolute Auto 100 /uL (0-450); Hematocrit 41.2 % (36-46); Hemoglobin 13.8 g/dL (12.0-16.0); Lymphocytes Absolute Auto 3000 /uL (1100-4500); Lymphocytes Percent Auto 25.7 % (25-40); Mean Corpuscular HGB Conc 33.5 % (30-36); Mean Corpuscular Volume 89.5 fL (80-100); Monocytes Absolute Auto 400 /uL (0-900); Monocytes Percent Auto 3.1 % (3-14); Neutrophils Absolute Auto 8100 /uL (1500-7000); Neutrophils Percent Auto 69.6 % (50-75); Platelet Count 274 X10^3/uL (150-400); White Blood Cell Count 11.6 X10^3/uL (4.5-11.0)
[2018-12-05 15:18] LABS: Microalbumi Creatinin Ratio Ur 6.5 ug/mg CR (<30); Microalbumin Urine Random < 0.6 mg/dL (0-1.6)
[2018-12-05 15:24] LABS: Alanine Aminotransferase 43 IU/L (9-52); Albumin 4.3 g/dL (3.5-5.0); Albumin Globulin Ratio 1.3 (1.0-2.8); Alkaline Phosphatase 302 U/L (38-126); Aspartate Aminotransferase 60 IU/L (14-36); Bilirubin Total 0.5 mg/dL (0.2-1.3); Blood Urea Nitrogen 19 mg/dL (7-17); Calcium 9.2 mg/dL (8.4-10.2); Carbon Dioxide 25 mmol/L (22-32); Chloride 96 mmol/L (98-107); Cholesterol 266 mg/dL (140-199); Estimated Glomerular Filt Rate 57.6 mL/min (>60); Globulin 3.4 g/dL (1.7-4.1); Glucose 333 mg/dL (70-100); HDL Cholesterol 52 mg/dL (40-60); HEMOLYSIS < 15 (0-50); LDL Cholesterol Calculated 166 mg/dL (<100); Potassium 4.1 mmol/L (3.4-5.1); Sodium 134 mmol/L (137-145); Total Protein 7.7 g/dL (6.3-8.2); Triglycerides 238 mg/dL (35-150)
[2018-12-05 15:52] LABS: Thyroid Stimulating Hormone 0.31 uIU/mL (0.47-4.68)
== END ==
PROVIDERS: PCP Student in an Organized Health Care Education/Training Program; Visit Provider Nurse Practitioner
DX: E11.65 Type 2 diabetes mellitus with hyperglycemia (principal); E78.5 Hyperlipidemia, unspecified; Z79.4 Long term (current) use of insulin
CPT/HCPCS: 36415; 80053; 80061; 82043; 82570; 84443; 85025

== ENCOUNTER → 2019-01-30 16:14 | Outpatient (CLI) | payer OTHER, MEDICAID, SELFPAY | PROVIDERS: PCP Student in an Organized Health Care Education/Training Program; Visit Provider Physician Assistant | DX: M79.89 Other specified soft tissue disorders (principal) | CPT/HCPCS: 87070; 87075; 87077; 87147; 87205 ==

== ENCOUNTER → 2019-08-08 12:05 | Outpatient (CLI) | payer OTHER, MEDICAID, SELFPAY ==
--- NOTE | 2019-08-08 12:06 | DI.US.S_ITS ---
LIMITED ULTRASOUND OF RIGHT BREAST AND AXILLA: 08/08/2019 CLINICAL: Focal right breast pain. Comparison is made to exams dated: 08/08/2019 mammogram, 05/18/2016 mammogram, 04/02/2014 mammogram, 12/10/2009 mammogram - [facility], 08/17/2008 mammogram, and 10/10/2007 mammogram - [facility]. Color flow ultrasound of the right breast upper outer quadrant, retroareolar, and axilla regions was performed. Maradiaga scale images of the real-time examination were reviewed. Targeted ultrasound of the area of the patient's indicated pain involving the right axilla and upper outer right breast radiating to the right nipple demonstrates an indistinct heterogenously hypoechoic area of tissue in the right breast 9:00 retroareolar position. This is difficult to measure but measures approximately 1.0 cm in greatest extent, and demonstrates no abnormal vascularity on Doppler ultrasound. Targeted ultrasound of the upper outer right breast at the area of patient's focal pain demonstrates a 3.4 x 2.6 x 1.0 cm intramammary lymph node located near 10:30 postiion 10-11 cm from the nipple with preserved fatty hilum, no suspcious cortical thickening, and mild expected hilar vascularity on Doppler ultrasound. A smaller lymph node demonstrating similar morphology is noted adjacent this lymph node. Targeted ultrasound of the rgiht axilla demonstrates no suspicious mass or abnormality. There is no ultrasound evidence of right axillary lymphadenopathy. IMPRESSION: PROBABLY BENIGN 1) Approximately 1.0 cm indistinct heterogenously hypoechoic area of tissue in the right breast 9:00 retroareolar position, likely representing prominent fibroglandular tissue and probably benign. A follow-up mammogram and an ultrasound in 6 months is recommended to demonstrate stability. The patient is advised to monitor her breasts and to return sooner for re-evaluation should she feel anything grow or change. 2) Intramammary lymph nodes, largest measuring 3.4 x 2.6 x 1.0 cm located near 10:30 postiion 10-11 cm from the nipple, are likely reactive and probably benign. A follow-up mammogram and an ultrasound in 6 months is recommended to demonstrate stability. The patient is advised to monitor her breasts and to return sooner for re-evaluation should she feel anything grow or change. 3) No ultrasound evidence of right axillary lymphadenopathy. This exam was interpreted at Station ID: [id number]. Electronically Signed By: Aleksander Mayfield M.D. ecl/:08/08/2019 14:10:13 copy to: Ben French letter sent: Followup Recommended Ultrasound BI-RADS: 3 Probably benign
--- NOTE | 2019-08-08 12:06 | DI.MG.S_ITS ---
BILATERAL DIGITAL DIAGNOSTIC MAMMOGRAM 3D/2D: 08/08/2019 CLINICAL: Per technologist, the patient reports history of breast pain which scomes and goes for over a year. Patient is unsure whether this is related to her sarcoidosis but when the pain subsides she notes that the breast has become hard, red, and has the apeparance of cellulitis in the same area as the pain. Patient reports that the pain radaites from the axilla towards the nipple. Comparison is made to exams dated: 05/18/2016 mammogram, 04/02/2014 mammogram, and 12/10/2009 mammogram - [facility]. There are scattered fibroglandular elements in both breasts. There is a square marker overlying the skin of the upper outer right breast at the site of the patient's reported focal pain. There is no underlying mammographic abnormality. There is no underling abnormality of the upper outer right breast and imaged portions of the right axilla. There is a linear scar marker overlying the right breast. No significant masses, calcifications, or other findings are seen in either breast. IMPRESSION: INCOMPLETE: NEEDS ADDITIONAL IMAGING EVALUATION No mammographic abnormality to correlate with the site of the patient's reported focal breast pain. Targeted diagnostic ultrasound recommended for further evaluation, which will be performed immediately following this exam. This exam was interpreted at Station ID: [id number]. NOTE: For mammograms, a report in lay terms will be sent to the patient. Approximately 15% of breast malignancies will not be visualized mammographically. In the management of a palpable breast mass, a negative mammogram must not discourage biopsy of a clinically suspicious lesion. Electronically Signed By: Aleksander Mayfield M.D. ecl/:08/08/2019 13:27:44 copy to: Ben French ACR BI-RADS Category 0: Incomplete [id number]
== END ==
PROVIDERS: PCP Student in an Organized Health Care Education/Training Program; Visit Provider Obstetrics & Gynecology
DX: R92.8 Other abnormal and inconclusive findings on diagnostic imaging of breast (principal); N64.4 Mastodynia
CPT/HCPCS: 76642; 77066; G0279

== ENCOUNTER → 2019-08-28 11:45 | Outpatient (CLI) | payer OTHER, MEDICAID, SELFPAY ==
--- NOTE | 2019-08-28 11:47 | DI.US.S_ITS ---
ULTRASOUND OF LEFT BREAST AND AXILLA: 08/28/2019 CLINICAL: Prominent left axillary nodes. Comparison is made to exams dated: 08/08/2019 mammogram, 05/18/2016 mammogram, 04/02/2014 mammogram, 12/10/2009 mammogram, 08/08/[address] ultrasound - [facility], and 08/17/2008 mammogram - [facility]. Real-time ultrasound of the left breast axilla was performed. Maradiaga scale images of the real-time examination were reviewed. No significant abnormalities were seen sonographically in the left axilla. IMPRESSION: NEGATIVE There is no sonographic evidence of malignancy in the left axilla. Return to screening mammography of the left breast. This exam was interpreted at Station ID: [id number]. Electronically Signed By: Chinedu Jain M.D. slc/:08/28/2019 12:46:55 copy to: Ben French letter sent: Normal Exam Ultrasound BI-RADS: 1 Negative
--- NOTE | 2019-08-28 11:47 | DI.US.S_ITS ---
ULTRASOUND OF RIGHT BREAST AND AXILLA: 08/28/2019 CLINICAL: Prominent right axillary nodes. Comparison is made to exams dated: 08/08/2019 mammogram, 05/18/2016 mammogram, 04/02/2014 mammogram, 12/10/2009 mammogram - [facility], 08/17/2008 mammogram - [facility], and 08/08/2019 ultrasound - [facility]. Real-time ultrasound of the right breast axilla was performed. Maradiaga scale images of the real-time examination were reviewed. No significant abnormalities were seen sonographically in the right breast. IMPRESSION: NEGATIVE There is no sonographic evidence of malignancy in the right axilla. The patient was previously recommended for 6 month follow up mammogram and ultrasound on 08/08/2019. This exam was interpreted at Station ID: [id number]. Electronically Signed By: Chinedu Jain M.D. slc/:08/28/2019 12:44:34 copy to: Ben French letter sent: Normal Exam Ultrasound BI-RADS: 1 Negative
== END ==
PROVIDERS: PCP Student in an Organized Health Care Education/Training Program; Visit Provider Specialist
DX: R59.0 Localized enlarged lymph nodes (principal); D86.9 Sarcoidosis, unspecified
CPT/HCPCS: 76882

== ENCOUNTER → 2019-11-13 14:31 | Outpatient (CLI) | payer OTHER, MEDICAID, SELFPAY ==
[2019-09-26 13:49] VITALS: BMI 26.6
[2019-11-13 17:22] LABS: Influenza A - CEPHEID Flu A NEGATIVE (NEGATIVE); Influenza B - CEPHEID Flu B NEGATIVE (NEGATIVE)
[2019-11-15 08:39] LABS: COVID19 Sendout Not Detected (Not Detected)
== END ==
PROVIDERS: PCP Student in an Organized Health Care Education/Training Program; Visit Provider Registered Nurse
DX: R68.89 Other general symptoms and signs (principal)
CPT/HCPCS: 87502; 87635

== ENCOUNTER 2019-11-13 14:55 | Emergency (ER) | payer OTHER, MEDICAID, SELFPAY ==
[2019-09-26 13:49] VITALS: BMI 26.6
[2019-11-13 15:14] VITALS: BP 149/82; PULSE 83; TEMP 36.8; O2SAT 98; BMI 25.7
--- NOTE | 2019-11-13 15:31 | ED.GENADULT ---
HPI - General Adult General Chief complaint: Shortness of Breath/Dyspnea Stated complaint: SOB, fever, tired, sore throat Time Seen by Provider: 11/13/19 15:30 Source: patient Mode of arrival: Ambulatory Limitations: no limitations History of Present Illness HPI narrative: 54-year-old woman with a history of COPD sarcoidosis and fibromyalgia who has been ill since Sunday with an influenza like illness consisting of fevers myalgias fatigue and cough. She used her nebulizer this morning and did not feel that it made much difference. She does have a history of gastroparesis and notes that she vomits regularly has not been doing more so. Isn't complaining of abdominal pain nor diarrhea. Her cough is minimally productive at most. She notes that her blood sugars have been more erratic over the last 3 days and she is appropriately adding insulin for the highs. Related Data Home Medications Medication Instructions Recorded Confirmed dicyclomine 10 mg PO QIDP PRN #0 10/05/17 11/13/19 Restasis 1 drp OPHTH BID #0 11/09/17 11/13/19 prenat.vits,jeremy,jor-syik-rwvac 1 tab PO DAILY 01/18/18 11/13/19 Glucagon Emergency Kit (human) 1 mg SUBCUT Q20M PRN 10/06/18 11/13/19 oxycodone [OxyContin] 20 mg PO Q12H 10/06/18 11/13/19 hydromorphone 4 mg tablet 4 mg PO QID PRN #0 tab 09/24/19 11/13/19 pantoprazole 40 mg tablet,delayed 40 mg PO BID tab 09/24/19 11/13/19 release Previous Rx's Medication Instructions Recorded levomefolate calcium 15 mg PO QDAY #90 cap 07/12/17 [L-Methylfolate] Spiriva with HandiHaler 18 mcg INH QDAY #30 cap 08/23/17 ketoconazole 1 nathan TOPICAL BID #30 gm 09/11/17 Ventolin HFA 1 - 2 puff INH 4-6HRS #1 inh 10/18/17 insulin glargine 100 unit/mL (3 30 unit SUBCUT HS #1 ml 05/31/18 mL) subcutaneous pen insulin lispro 100 unit/mL 10 - 15 unit SUBCUT ACHS #1 syr 10/26/18 subcutaneous pen CMP Testosterone 0.2% See Rx Instructions .ROUTE 09/24/18 .COMPLEX #30 gram nystatin-triamcinolone 100,000 See Rx Instructions TOP BID #30 09/24/18 unit/gram-0.1 % topical ointment gram estradiol See Rx Instructions VAG DAILY 09/25/18 #42.5 gram estradiol 0.5 mg tablet 0.5 mg PO DAILY #30 tab 11/14/18 epinephrine 0.3 mg/0.3 mL 0.3 mg IM PRN PRN #1 each 11/26/18 injection, auto-injector naproxen 500 mg tablet 500 mg PO BID PRN #180 tab 12/23/18 propranolol 20 mg tablet 20 mg PO TID PRN #10 tab 12/23/18 ondansetron 4 mg disintegrating 4 mg SUBLINGUAL Q6HP PRN #120 tab 02/04/19 tablet clonidine HCl 0.2 mg tablet 0.2 mg PO BID #60 tab 03/17/19 tizanidine 4 mg tablet 4 mg PO Q8H PRN #90 tab 06/27/19 dextroamphetamine-amphetamine ER 10 mg PO QAM #30 cap 09/24/19 10 mg 24hr capsule,extend release fluticasone propionate 110 2 puff INHALATION BID #1 inh 10/22/19 mcg/actuation HFA aerosol inhaler vortioxetine 20 mg tablet 20 mg PO DAILY #30 tab 10/27/19 Allergies Allergy/AdvReac Type Severity Reaction Status Date / Time lidocaine Allergy Severe sanchez - Verified 11/13/19 15:14 rash venom-honey bee Allergy Severe SWOLLEN Verified 11/13/19 15:14 [bee venom (honey bee)] TONGUE AND THROAT BUT NOT ANAPHALAXIS pregabalin [From LYRICA] Allergy Intermediate 'WELTS ON Verified 11/13/19 15:14 MY BODY' cyclobenzaprine Allergy Unknown Verified 11/13/19 15:14 [From FLEXERIL] gabapentin Allergy Unknown MY Verified 11/13/19 15:14 THOUGHT IT MADE ME ACT WERID hydroxyzine AdvReac Unknown PT STATES Verified 11/13/19 15:14 EYES DRIES ME UP venlafaxine AdvReac Unknown MADE MY Verified 11/13/19 15:14 BLOOD PRESSURE HIGH trazodone AdvReac heart Verified 11/13/19 15:14 palpatations MALIN NICOLAS Allergy Severe SWELLING Uncoded 09/24/19 13:39 FACE AND THROAT LACTOSE INTOLERANT AdvReac Unknown Uncoded 09/24/19 13:39 Review of Systems Review of Systems Narrative: All systems reviewed and are unremarkable except as noted in HPI and below Patient History Medical History ADHD (attention deficit hyperactivity disorder) (Chronic) Anxiety (Chronic) Back pain (Chronic) Cataract (Chronic) Central sleep apnea (Acute) Cervical cancer (Resolved 1991) Chicken pox (Resolved) Chronic cough (Chronic) Chronic headaches (Chronic) COPD (chronic obstructive pulmonary disease) (Chronic) 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) Depression (Chronic 05/15/14) Diabetes mellitus (Chronic 2003) Esophageal stricture (Resolved 09/2017) Fibromyalgia (Chronic 06/24/15) Generalized anxiety disorder (Chronic) GERD (gastroesophageal reflux disease) (Chronic 1980) History of blood transfusion (Resolved ~07/1981) Hyperlipidemia (Chronic 1991) Hypertension (Chronic 1991) Hypertensive urgency (Inactive) Influenza B (Resolved) Insomnia (Chronic) Kidney stones (Resolved) Lumbar spine pain (Chronic) Major depressive disorder, recurrent, moderate (Chronic) Menopausal symptoms (Chronic) Obstructive sleep apnea (Acute) Pancreatitis (Resolved 2010) Post-traumatic stress disorder, chronic (Chronic) Right fibular fracture (Resolved) Sarcoidosis (Chronic) Scoliosis (Chronic) Shoulder pain (Chronic) Spinal stenosis (Chronic) Trichotillomania (Chronic) Type 2 diabetes mellitus with diabetic polyneuropathy (Chronic 07/22/15) Uncontrolled type 2 diabetes mellitus (Chronic 12/07/15) Vaginal atrophy (Chronic) Weakness of both legs (Chronic) Surgical History Anesthesia (Resolved) History of tonsillectomy (Resolved 1967) S/P dilatation of esophageal stricture (Resolved 09/2017) Status post cataract extraction (Acute) Status post delivery (Resolved 05/02/85) Status post cholecystectomy (Resolved 02/1985) Status post hysterectomy (Resolved 1986) Family History Brother Age: 62 Diabetes mellitus Child Age: 38 Asthma Child Heart defect Father Age: 82 Hypertension Cirrhosis of liver Mother Heart disease High cholesterol Amyloidosis Sister Age: 59 Diabetes mellitus Heart disease Sister Heart disease Social History household members: spouse Smoking Status: Former smoker alcohol intake: never Smoking Status: Former smoker alcohol intake frequency: holidays/special occasions only Substance Use Type: painkillers and prescription drug Exam Narrative Exam Narrative: General: Frail appearing woman no acute distress. Able to give a complete and coherent history. Able to speak in full sentences with no evidence of acute respiratory distress HEENT: Moist mucous membranes, normal sclera with reactive pupils, Neck: supple Respiratory: Lungs minimal scattered wheezing that resolves after coughing and no rales or rhonchi. Full and symmetrical air movement Cardiac: Regular rate and rhythm no murmurs no bruits Abdomen: Soft nontender good bowel tones, no flank pain Skin: Warm and dry, no rashes, been enough that there are multiple bruises over her arms and legs in various stages of healing Neurologic: Grossly neurologically intact with no obvious asymmetries or abnormalities Extremities: No overt trauma, well perfused Psych: Cooperative, appropriate insight and affect Initial Vital Signs Initial Vital Signs: Vital Signs Temperature 98.3 F 11/13/19 15:14 Pulse Rate 83 11/13/19 15:14 Blood Pressure 149/82 H 11/13/19 15:14 Pulse Oximetry 98 11/13/19 15:14 Course Orders Ordered: ED Orders 11/13/19 15:20 EKG-12 Lead Routine Vital Signs Vital signs: Vital Signs - 8 hr 11/13/19 15:14 Temperature 98.3 F Pulse Rate 83 Blood Pressure 149/82 H Pulse Oximetry 98 Medical Decision Making Medical Records Medical records reviewed: Yes I reviewed the patient's medical records. [facility] Narrative Medical decision making narrative: 54-year-old woman with cough and myalgias for 4 days. She states that it is similar to her episode of influenza B in 2018. Her vital signs are very reassuring with saturations at 98% on room air, normal blood pressure and no evidence of tachycardia. Her clinical exam does not suggest an acute pneumonia and in the absence of severe hypoxia, Covid19 that would require hospitalization is less likely. She has had influenza and covered screening in the respiratory clinic prior to arrival and will be contacted with results when available. At this point she is free to go home. She does have narcotics available to help for her chronic pain and we discussed how this may also help suppress her cough and help with some of the myalgias she is currently experiencing. I encouraged her to use the Naprosyn that she also has available to her at home to help with the low-grade fevers and again the myalgias. Encouraged her to return should symptoms worsen. Discharge Plan Departure Patient Disposition: Home Clinical Impression: Influenza-like illness Instructions: DI for Influenza -- Adult Activity Restrictions/Additional Instructions: Thank you for coming in today Your symptoms are entirely consistent with influenza. You have had both an influenza a, influenza B as well as Covid19 testing done today and will hear results when they are available. With normal oxygenation and blood pressure as well as a reassuring clinical exam today I believe it is safe for you to go home. Using your Naprosyn to help with the fevers as well as myalgias will be appropriate. You may find that using some of the narcotic that you have available to at home will help suppress your cough so that you are able to sleep at night. I would expect that you will begin feeling better by early next week. I would encourage you to stay at home and take care of yourself. Please avoid going out in public as long as you are coughing and have a fever. If you find that your breathing is getting worse, your feeling significantly more short of breath or having new symptoms that need additional evaluation please return to the emergency department I hope you heal quickly Prescriptions: No Action prenat.vits,jeremy,qmk-[id number]-[id number] tablet 1 tab PO DAILY RF: 0 pantoprazole [Protonix] 40 mg tablet,delayed release (DR/EC) 40 mg PO BID RF: 0 dextroamphetamine-amphetamine [Adderall XR] 10 mg capsule,extended release 24hr 10 mg PO QAM Qty: 30 RF: 0 levomefolate calcium [L-Methylfolate] 15 MG tablet 15 mg PO QDAY Qty: 90 RF: 0 Spiriva with HandiHaler 18 MCG capsule, w/inhalation device 18 mcg INH QDAY Qty: 30 RF: 12 ketoconazole 2 % cream 1 nathan Topical BID Qty: 30 RF: 0 dicyclomine 10 MG capsule 10 mg PO QIDP PRN (Reason: Inflammation) Qty: 0 RF: 0 Ventolin HFA 90 MCG/PUFF HFA aerosol inhaler 1 - 2 puff INH 4-6HRS Qty: 1 RF: 11 Restasis 1 EACH dropperette 1 drp OPHTH BID Qty: 0 RF: 0 insulin glargine [Lantus Solostar U-100 Insulin] 100 unit/mL (3 mL) insulin pen 30 unit SUBCUT HS Qty: 1 RF: 3 insulin lispro [Humalog KwikPen Insulin] 100 unit/mL insulin pen 10 - 15 unit SUBCUT ACHS Qty: 1 RF: 3 epinephrine 0.3 mg/0.3 mL auto-injector 0.3 mg IM PRN PRN (Reason: Anaphylaxis) Qty: 1 RF: 0 naproxen [Naprosyn] 500 mg tablet 500 mg PO BID PRN (Reason: pain) Qty: 180 RF: 1 propranolol 20 mg tablet 20 mg PO TID PRN (Reason: anxiety) Qty: 10 RF: 11 clonidine HCl 0.2 mg tablet 0.2 mg PO BID Qty: 60 RF: 11 tizanidine 4 mg tablet 4 mg PO Q8H PRN (Reason: muscle spasticity) Qty: 90 RF: 11 hydromorphone 4 mg tablet 4 mg PO QID PRN (Reason: Back Pain) Qty: 0 RF: 0 Flovent HFA 110 mcg/actuation HFA aerosol inhaler 2 puff inhalation BID Qty: 1 RF: 11 vortioxetine 20 mg tablet 20 mg PO DAILY Qty: 30 RF: 2 nystatin-triamcinolone 100,000-0.1 unit/gram-% ointment See Rx Instructions TOP BID Qty: 30 RF: 0 CMP Testosterone 0.2% See Rx Instructions .ROUTE .COMPLEX Qty: 30 RF: 3 estradiol 0.01 % (0.1 mg/gram) cream See Rx Instructions VAG DAILY Qty: 42.5 RF: 3 estradiol 0.5 mg tablet 0.5 mg PO DAILY Qty: 30 RF: 3 ondansetron [Zofran ODT] 4 mg tablet,disintegrating 4 mg Sublingual Q6HP PRN (Reason: nausea and vomiting) Qty: 120 RF: 2 oxycodone [OxyContin] 20 mg Tablet,Oral Only,Ext.Rel.12 Hr 20 mg PO Q12H RF: 0 Glucagon Emergency Kit (human) 1 mg Recon Soln 1 mg SUBCUT Q20M PRN (Reason: Hypoglycemia) RF: 0 Referrals: Ben Winchester MD [Primary Care Provider] -
== END 2019-11-13 15:50 | disposition home or self-care (01) ==
PROVIDERS: Emergency Provider Emergency Medicine; PCP Student in an Organized Health Care Education/Training Program
DX: R68.89 Other general symptoms and signs (principal); R50.9 Fever, unspecified; R05 Cough; R06.02 Shortness of breath
CPT/HCPCS: 87502; 87635; 93005; 99282; 99283

== ENCOUNTER → 2020-03-19 11:29 | Outpatient (CLI) | payer OTHER, MEDICAID, SELFPAY ==
[2020-03-18 14:58] VITALS: BMI 26.6
[2020-03-22 09:51] LABS: COVID19 Sendout Not Detected (Not Detected)
== END ==
PROVIDERS: PCP Student in an Organized Health Care Education/Training Program; Visit Provider Physician Assistant
DX: Z11.59 Encounter for screening for other viral diseases (principal); R52 Pain, unspecified; J02.9 Acute pharyngitis, unspecified
CPT/HCPCS: 87070; 87635

== ENCOUNTER → 2020-03-19 12:29 | Outpatient (CLI) | payer OTHER, MEDICAID, SELFPAY ==
[2020-03-18 14:58] VITALS: BMI 26.6
--- NOTE | 2020-03-19 12:31 | DI.RAD.S_ITS ---
PROCEDURE: XR CHEST 2V INDICATIONS: shortness of breath TECHNIQUE: 2 views of the chest were acquired. COMPARISON: [facility], , CHEST 1 VIEW, 11/09/2017, 15:18. FINDINGS: Surgical changes and devices: None. Lungs and pleura: Lungs are clear. No pleural effusions or pneumothorax. Mediastinum: Mediastinal contours are normal. Heart size is enlarged. Bones and chest wall: No suspicious bony abnormalities. Soft tissues appear unremarkable. Scoliosis of thoracolumbar spine is again seen unchanged from prior study. IMPRESSION: No acute cardiopulmonary pathology. Dictated by: Keven Boles M.D. on 03/19/2020 at 12:27 Approved by: Keven Boles M.D. on 03/19/2020 at 12:31
== END ==
PROVIDERS: PCP Student in an Organized Health Care Education/Training Program; Referring Provider Physician Assistant; Visit Provider Physician Assistant
DX: Z11.59 Encounter for screening for other viral diseases (principal); R06.02 Shortness of breath; R52 Pain, unspecified; J02.9 Acute pharyngitis, unspecified
CPT/HCPCS: 71046; 87070; 87635

== ENCOUNTER → 2020-05-24 09:20 | Outpatient (CLI) | payer OTHER, MEDICAID, SELFPAY ==
[2020-03-18 14:58] VITALS: BMI 26.6
--- NOTE | 2020-05-24 09:23 | DI.MG.S_ITS ---
UNILATERAL RIGHT DIGITAL DIAGNOSTIC MAMMOGRAM 3D/2D: 05/24/2020 CLINICAL: Late short term follow up. Comparison is made to exams dated: 08/08/2019 mammogram, 05/18/2016 mammogram, 04/02/2014 mammogram, and 08/08/2019 [facility]. There are scattered fibroglandular elements in right breast. No significant masses, calcifications, or other findings are seen in the breast. IMPRESSION: INCOMPLETE: NEEDS ADDITIONAL IMAGING EVALUATION There is no abnormality seen in the right breast to correspond with the ultrasound finding and pain, however, ultrasound is recommended. This exam was interpreted at Station ID: [id number]. NOTE: For mammograms, a report in lay terms will be sent to the patient. Approximately 15% of breast malignancies will not be visualized mammographically. In the management of a palpable breast mass, a negative mammogram must not discourage biopsy of a clinically suspicious lesion. SUMMARY: Targeted ultrasound is recommended for further evaluation and will be scheduled immediately following this exam. Electronically Signed By: Jacky rivas/faith:05/24/2020 11:48:02 copy to: Ben French copy to: Lauro Ramirez ACR BI-RADS Category 0: Incomplete [id number]
--- NOTE | 2020-05-24 09:23 | DI.US.S_ITS ---
LIMITED ULTRASOUND OF RIGHT BREAST AND AXILLA: 05/24/2020 CLINICAL: Diffuse right breast pain. 1030- and 900 retroareolar pain--- f/u -- same areas as prior u/s . Comparison is made to exams dated: 05/24/2020 mammogram, 08/28/2019 ultrasound, 08/28/2019 ultrasound, 08/08/2019 ultrasound, 08/08/2019 mammogram, and 05/18/2016 mammogram - [facility]. Ultrasound of the right breast 9 o'clock, retroareolar, and axilla regions was performed. There is a benign lymph node in the right breast at 10 o'clock posterior depth. This lymph node displays fatty hilum. This abnormality is not significantly changed and correlates to the reported pain. There also is a benign area of fibroglandular tissue in the right breast at 9 o'clock in the retroareolar region. This area of fibroglandular tissue displays no posterior acoustic shadowing or enhancement. This abnormality is less prominent and correlates to the reported pain. IMPRESSION: BENIGN There is no sonographic evidence of malignancy. The lymph node in the right breast at 10 o'clock posterior depth is benign. The area of fibroglandular tissue in the right breast at 9 o'clock in the retroareolar region is benign. A 1 year screening mammogram is recommended. This exam was interpreted at Station ID: [id number]. Electronically Signed By: Jacky rivas/faith:05/24/2020 11:51:20 copy to: Ben French copy to: Lauro Ramirez letter sent: Normal Exam Ultrasound BI-RADS: 2 Benign
== END ==
PROVIDERS: PCP Student in an Organized Health Care Education/Training Program; Referring Provider Student in an Organized Health Care Education/Training Program; Visit Provider Obstetrics & Gynecology
DX: R92.8 Other abnormal and inconclusive findings on diagnostic imaging of breast (principal); N64.4 Mastodynia
CPT/HCPCS: 76642; 77065; G0279

== ENCOUNTER 2020-08-12 15:00 | Outpatient (RCR) | payer OTHER, MEDICAID, SELFPAY ==
[2020-02-16 13:02] VITALS: BMI 26.6
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
--- NOTE | 2020-04-22 13:39 | PT-OP ANOTE ---
Pt appt cancelled due to awaiting insurance approval.
--- NOTE | 2020-04-27 13:55 | PT-OP ANOTE ---
Pt had been approved for 10 more therapy visits. Pt had not checked her messages to see if her therapy was approved; therefore she did not come to therapy and pt DNS for appt. Pt notified of next appt and to schedule more visits.
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
--- NOTE | 2020-06-11 13:01 | PT-OP ANOTE ---
Cancelled due to diabetic issues
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
--- NOTE | 2020-06-18 14:49 | PT.OPPOC ---
Physical, Occupational & Speech Therapy At [facility] Current Diagnoses Cervicalgia (06/18/20) Lumbago with sciatica, left side (06/18/20) Muscle weakness (generalized) (06/18/20) Visit Care Team Role Provider Type Ben Winchester MD Primary Care Provider Physician Specialty: Internal Medicine Address: [address] [place] [address], [address], [place], [address] Email: [email or web address] Pepe Grimm LAC Attending Provider Non-Staff Referring Provider Specialty: Anesthesia/Pain Management Address: [address] [place] [address], [id number] Email: Plan Of Care PT-OP-T Assessment and Plan Start: 03/05/20 19:02 Freq: Status: Active Protocol: Document 06/18/20 13:36 LRN (Rec: 06/18/20 14:43 LRN [id number]) Physical Therapy Assessment Rehab Potential Rehabilitation Potential Good Evaluation Complexity Number of Personal Factors/Comorbidities 3 or More Number of Body Systems Impaired 4 or More Clinical Presentation at Evaluation Evolving Impairments Impairments Activity Tolerance,Pain,ROM, Soft Tissue Mobility,Strength Goals Five Impairment L hip pain ( rated 7-8/10) limiting ambulatory ability Supervisor Underwriting Clerks Goal (LTG) Pt will be able to walk with less L hip sciatic pain (no greater than 3/10). LTG Duration 06/28/20 Four Impairment Decrease hip mobility (PSLR is 20 deg's left, 70 deg's right ) Short Term Goal (STG) Improve L PSLR to no less than 60 deg's for a negative PSLR test. STG Duration 06/28/20 (06/18/20: Improving; ~45 degs' PSLR bilaterally) Supervisor [employer] Clerks Goal (LTG) Pt will demonstrate greater symmetry of movement with hip rotators. LTG Duration 08/04/20 Three Impairment Shoulder/neck weakness causing neck/shoulder pn (7-8/10) with use of UEs Short Term Goal (STG) Pt will return to prior function of being able to wash her face with neck pain no greater than 5/10. (05/14/20: Can wash face with 4/10 pain, but not able to wash hair or back of neck) STG Duration 05/28/20 (04/15/20: MET GOAL) Nursing Home Goal (LTG) Pt will be able to rinse dishes or brush her teeth with pain no greater than prior function of 5/10. (05/14/20: Can do for short periods of time dishes due to L hip, leg back and neck pain 10/10). LTG Duration 08/04/20 Two Impairment Decreased Cervical AROM (flex 30, ext 33, SB 35 R, 27 L; Rot 50 R, 30 L) Short Term Goal (STG) Normalize C. AROM (06/18/20: AROM in deg's: flex 23, ext 23, SB 35 R, 35 L; rot 54 R, 42 L) STG Duration 06/28/20 (06/18/20: Rot improved, SB symmetrical, flex /ext limited) Supervisor Underwriting Clerks Goal (LTG) Able to read without an increase pain with modified posture. (05/14/20: No change, pt listening to audiobooks) LTG Duration 08/04/20 One Impairment Lacks appropriate self care HEP Supervisor Underwriting Clerks Goal (LTG) Pt will be independent with a self care HEP for her neck and L LB/LE. LTG Duration 08/04/20 (06/18/20: Progressing, met for ROM) Progress Towards Goals Progress Comments C/S mobility and symmetry improved for SB, and R rot improved > L rot. Assessment Summary Assessment The pt presents today with improved active cervical mobility for rotation and improved symmetry with sidebend. Her flex/ext are quite limited, but manual treatment to the cervical spine is being delayed by lack of X-rays for clearance of bony changes that would prohibit manual mobilization. Today pt SLR is ~45 deg's bilaterally with LE neural stretch. Pt has questionable recall with HEP of hip stretches. Cervical Flex/Ext is still quite limited. Pt SPC is now appropriate for her height and will improve her posture with gait. The pt continues to report fall episodes of her leg giving out . Further assessment for neurological involvement would be appropriate. Recommend continuation of physical therapy 1x/week to progress the pt's HEP an progress her to her prior level of function . Physical Therapy Plan Frequency and Duration Frequency of Treatment 1x/Week Plan of Care Start Date 03/08/20 Plan of Care End Date 08/04/20 Therapeutic Interventions Therapeutic Interventions Balance Training,Gait Training ,Home Exercise Program,Joint Mobilizations,Manual Therapy, Neuromuscular Re-education, Patient/Caregiver Education, Self-Care/Home Management,Soft Tissue Mobilization, Therapeutic Exercises Modalities Cold Pack/Ice Massage Next Visit Focus/Plan Next Note Type Treatment Note Next Visit Plan Check on if X-rays of neck scheduled. Cont 1x/week due to insurance visit limit. Check stretch to hip flexors. Review LB rotation stretches (issue HEP) & HEP shoulder desk stretches, Add: general UE strengthening and Cervical isometric strengthening. Assess L SIJ (treat R side) for a posteriorly rotated innominate and Sciatic nerve pain. Assess pt self TrP treatment to L upper gluteals. Careful active Cervical ROM and monitor mobility limitations for possible C/S injury. Rehab for neck mechanical dysfunction ( possible bony dysfunction not yet ruled out), didier strengthening, and for soft tissue dysfunction (with DTM/ TrP treatment) and L low back for possible disc (traction). Plan of Care Dates Plan of Care Start Date 03/08/20 Plan of Care End Date 08/04/20 Electronically Signed by: Luz Mcdonald, PT 06/18/20 [id number] Please Sign and Return: I have reviewed this Plan of Care and certify that the skilled therapy services above are required to meet the patient?s needs. Physician Signature Date Printed Name and Credentials Clinical Instructor Signature Printed Name and Credentials
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
--- NOTE | 2020-08-19 17:16 | PT-OP ANOTE ---
Pt cancel due to no new insurance visits approved yet. Pt declined therapy with self pay
--- NOTE | 2020-08-26 15:57 | PT-OP ANOTE ---
Per phone conversation: pt states she got an epidural shot today to her back. States she doesn't know if it changed anything in L hip and LB in regards to pain. States her neck dysfunction comes and goes and her L leg gives out. She will be going back to the pain clinic October 04. States she has fibromyalgia and every day is a different day, can't get out of bed some days. Recommended pt discuss with her referring physician her symptoms of legs giving out and requesting further imaging of her cervical spine. Discussed pt's options of care and lack of progress and post discharge plan & recommended pt continue with her HEP to maintain her mobility and strength achieved.
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
== END 2020-09-10 09:50 ==
LOC: PHYS 15:00
PROVIDERS: PCP Student in an Organized Health Care Education/Training Program; Referring Provider Acupuncturist; Visit Provider Acupuncturist
DX: M54.2 Cervicalgia (principal); M54.42 Lumbago with sciatica, left side; M62.81 Muscle weakness (generalized)
CPT/HCPCS: 95851; 97014; 97110; 97140; 97162; 97750; G0283

== ENCOUNTER → 2020-09-16 17:15 | Outpatient (CLI) | payer OTHER, MEDICAID, SELFPAY ==
[2020-06-17 11:11] VITALS: BMI 26.6
--- NOTE | 2020-09-16 17:19 | DI.RAD.S_ITS ---
PROCEDURE: XR HIP W PEL IF DONE RT 2V INDICATIONS: Hip injury from fall TECHNIQUE: AP pelvis with lateral view(s) of the left hip(s). COMPARISON: None. FINDINGS: Bones: No fractures or dislocations. Mild and symmetric degenerative changes in the femoral acetabular joints and moderate degenerative disc and endplate change in the visible lower lumbar spine. Slight valgus deformity of the left femoroacetabular joint suggesting congenital hip dysplasia. Pelvic ring appears intact. No suspicious bony lesions. Soft tissues: The visualized bowel gas pattern is normal. No suspicious soft tissue calcifications. IMPRESSION: 1. No acute fractures in the right hip or pelvis. 2. Deformity of slight left congenital hip dysplasia. 3. Degenerative change in the visible lower lumbar spine. Dictated by: Lily Benz M.D. on 09/16/2020 at 17:41 Approved by: Lily Benz M.D. on 09/16/2020 at 17:42
== END ==
PROVIDERS: PCP Student in an Organized Health Care Education/Training Program; Referring Provider Student in an Organized Health Care Education/Training Program; Visit Provider Student in an Organized Health Care Education/Training Program
DX: M47.816 Spondylosis without myelopathy or radiculopathy, lumbar region (principal); Q65.89 Other specified congenital deformities of hip
CPT/HCPCS: 73502

== ENCOUNTER → 2020-11-10 17:11 | Outpatient (CLI) | payer OTHER, MEDICAID, SELFPAY ==
[2020-06-17 11:11] VITALS: BMI 26.6
[2020-11-10] MEDS: COVID-19 VACC #1, MRNA(MOD) 100 MCG/0.5 ML VIAL IM (17:23)
== END ==
PROVIDERS: PCP Student in an Organized Health Care Education/Training Program; Visit Provider Internal Medicine
DX: Z23 Encounter for immunization (principal)
CPT/HCPCS: 0011A; 91301

== ENCOUNTER → 2020-12-08 15:31 | Outpatient (CLI) | payer OTHER, MEDICAID, SELFPAY ==
[2020-06-17 11:11] VITALS: BMI 26.6
[2020-12-08] MEDS: COVID-19 VACC #2, MRNA(MOD) 100 MCG/0.5 ML VIAL IM (15:40)
== END ==
PROVIDERS: PCP Student in an Organized Health Care Education/Training Program; Visit Provider Internal Medicine
DX: Z23 Encounter for immunization (principal)
CPT/HCPCS: 0012A; 91301

== ENCOUNTER 2021-03-12 16:09 | Emergency (ER) | payer OTHER, MEDICAID, SELFPAY ==
[2020-06-17 11:11] VITALS: BMI 26.6
[2021-03-12] VITALS (34 sets, daily range): BP systolic 78–218; BP diastolic 40–119; PULSE 52–74; RESP 11–38; TEMP 36.1; O2SAT 93–100; BMI 23.3
--- NOTE | 2021-03-12 16:29 | DI.RAD.S_ITS ---
PROCEDURE: XR CHEST 1V INDICATIONS: chest pain TECHNIQUE: One view of the chest was acquired. COMPARISON: [facility], CT, CT CHEST WITH CONTRAST, 12/06/2018, 10:58. , CR, XR CHEST 2V, 03/19/2020, 12:52. FINDINGS: Surgical changes and devices: Cholecystectomy clips are seen. Lungs and pleura: An incomplete inspiratory result is noted, causing a crowded appearance to the lung markings. No focal infiltrates are seen. No pneumothorax or significant pleural effusions are seen. Mediastinum: Mediastinal contours appear normal. Heart size is normal. Bones and chest wall: No suspicious bony lesions. [id number] dextroconvex scoliosis is seen. Age-appropriate bony degenerative changes are seen. Overlying soft tissues appear unremarkable. IMPRESSION: Limited portable chest examination, without a significant cardiopulmonary abnormality identified. Dictated by: Alessandro Najera M.D. on 03/12/2021 at 15:50 Approved by: Alessandro Najera M.D. on 03/12/2021 at 15:51
[2021-03-12 16:43] LABS: Alanine Aminotransferase 21 IU/L (<35); Albumin 3.5 g/dL (3.5-5.0); Albumin Globulin Ratio 1.1 (1.0-2.8); Alkaline Phosphatase 244 U/L (38-126); Aspartate Aminotransferase 37 IU/L (14-36); BUN Creatinine Ratio 21.5 (6-22); Bilirubin Total 0.4 mg/dL (0.2-1.3); Blood Urea Nitrogen 28 mg/dL (7-17); Calcium 8.6 mg/dL (8.4-10.2); Carbon Dioxide 21 mmol/L (22-32); Chloride 109 mmol/L (98-107); Creatine Kinase 83 U/L (30-135); Estimated Glomerular Filt Rate 42.1 mL/min (>60); Globulin 3.3 g/dL (1.7-4.1); Glucose 239 mg/dL (70-100); HEMOLYSIS < 15 (0-50); Lipase 141 U/L (23-300); Potassium 4.5 mmol/L (3.4-5.1); Sodium 137 mmol/L (137-145); Total Protein 6.8 g/dL (6.3-8.2)
[2021-03-12 16:46] LABS: Add Manual Diff / Slide Review NO; Basophils Absolute Auto 100 /uL (0-100); Basophils Percent Auto 1.1 % (0-2); Eosinophils Absolute Auto 400 /uL (0-450); Eosinophils Percent Auto 4.4 % (2-4); Hematocrit 32.6 % (36-46); Hemoglobin 10.7 g/dL (12.0-16.0); Lymphocytes Absolute Auto 2000 /uL (1100-4500); Lymphocytes Percent Auto 24.3 % (25-40); Mean Corpuscular HGB Conc 32.8 % (30-36); Mean Corpuscular Hemoglobin 30.1 PG (26-34); Mean Corpuscular Volume 91.7 fL (80-100); Monocytes Absolute Auto 300 /uL (0-900); Monocytes Percent Auto 3.9 % (3-14); Neutrophils Absolute Auto 5500 /uL (1500-7000); Neutrophils Percent Auto 66.3 % (50-75); Platelet Count 215 X10^3/uL (150-400); Red Blood Cell Count 3.55 X10^6/uL (4.0-5.2); Red Cell Distribution Width 13.8 % (11.6-14.8); White Blood Cell Count 8.3 X10^3/uL (4.5-11.0)
--- NOTE | 2021-03-12 16:46 | ED.CHESTPAIN ---
HPI - Chest Pain <Carlos Eduardo CortezDO gisella - Last Filed: 03/14/21 15:27> General Chief Complaint: Chest Pain Stated Complaint: rib/chest pain radiating to back, left leg pain Time Seen by Provider: 03/12/21 16:33 History of Present Illness HPI narrative: 56-year-old female smoker with history of COPD, sleep apnea, fibromyalgia, type 2 diabetes, cutaneous sarcoidosis presents with many weeks of right-sided chest pain with radiation to her back. She states that she feels short of breath and it seems to be worse when she takes a deep breath. She denies associated symptoms such as dizziness, weakness or lightheadedness. She has had no vomiting or diarrhea. She states that she has chronic nausea and does not think that her current nausea is any worse than normal. She denies any recent injury, recent travel, history of blood clot. She denies any exposure to persons with known or suspected COVID Related Data Home Medications Medication Instructions Recorded Confirmed dicyclomine 10 mg capsule 10 mg PO QIDP PRN #0 10/05/17 01/19/21 cyclosporine 0.05 % eye drops in a 1 drp OPHTH BID #0 11/09/17 01/19/21 dropperette (Restasis) prenat.vits,jeremy,[id number] 1 tab PO DAILY 01/18/18 01/19/21 glucagon (human recombinant) 1 mg 1 mg SUBCUT Q20M PRN 10/06/18 01/19/21 solution for injection (Glucagon Emergency Kit) Previous Rx's Medication Instructions Recorded ketoconazole 2 % topical cream 1 nathan TOPICAL BID #30 gm 09/11/17 insulin glargine 100 unit/mL (3 30 unit SUBCUT HS #1 ml 05/31/18 mL) subcutaneous pen (Lantus Solostar U-100 Insulin) insulin lispro 100 unit/mL 10 - 15 unit SUBCUT ACHS #1 syr 05/31/18 subcutaneous pen (Humalog KwikPen (U-100) Insulin) CMP Testosterone 0.2% See Rx Instructions .ROUTE 09/24/18 .COMPLEX #30 gram nystatin-triamcinolone 100,000 See Rx Instructions TOP BID #30 09/24/18 unit/gram-0.1 % topical ointment gram estradiol See Rx Instructions VAG DAILY 09/25/18 #42.5 gram estradiol 0.5 mg tablet 0.5 mg PO DAILY #30 tab 11/14/18 epinephrine 0.3 mg/0.3 mL 0.3 mg IM PRN PRN #1 each 11/26/18 injection, auto-injector naproxen 500 mg tablet (Naprosyn) 500 mg PO BID PRN #180 tab 12/23/18 fluticasone propionate 110 2 puff INHALATION BID #1 inh 10/22/19 mcg/actuation HFA aerosol inhaler (Flovent HFA) albuterol sulfate 2.5 mg INHALATION Q6H PRN #90 ml 03/12/20 albuterol sulfate 90 mcg/actuation 1 puff INHALATION Q6H PRN #18 gram 03/12/20 aerosol inhaler (Ventolin HFA) budesonide 0.5 mg/2 mL suspension 0.5 mg INHALATION BID #360 ml 07/16/20 for nebulization ipratropium bromide 0.02 % 2.5 ml INHALATION DAILY PRN #75 ml 07/16/20 solution for inhalation propranolol 20 mg tablet 20 mg PO TID PRN #10 tab 07/16/20 ondansetron 4 mg disintegrating 4 mg SUBLINGUAL Q6HP PRN #120 tab 12/06/20 tablet vortioxetine 20 mg tablet 20 mg PO DAILY 90 Days #90 tab 12/14/20 dextroamphetamine-amphetamine ER 10 mg PO QAM #30 cap 01/18/21 10 mg 24hr capsule,extend release dextroamphetamine-amphetamine ER 10 mg PO QAM #30 cap 01/18/21 10 mg 24hr capsule,extend release dextroamphetamine-amphetamine ER 10 mg PO QAM #30 cap 01/18/21 10 mg 24hr capsule,extend release quetiapine 50 mg tablet 50 mg PO BEDTIME #90 tab 01/19/21 tizanidine 4 mg tablet 4 mg PO Q8H PRN #120 tab 01/26/21 pantoprazole 40 mg tablet,delayed 80 mg PO QAM #90 tab 01/28/21 release (Protonix) flash glucose sensor (FreeStyle #2 ea 02/01/21 Mckenna 14 Day Sensor) Allergies Allergy/AdvReac Type Severity Reaction Status Date / Time lidocaine Allergy Severe sanchez - Verified 01/19/21 09:57 rash venom-honey bee Allergy Severe SWOLLEN Verified 01/19/21 09:57 [bee venom (honey bee)] TONGUE AND THROAT BUT NOT ANAPHALAXIS pregabalin [From LYRICA] Allergy Intermediate 'WELTS ON Verified 01/19/21 09:57 MY BODY' cyclobenzaprine Allergy Unknown Verified 01/19/21 09:57 [From FLEXERIL] gabapentin Allergy Unknown MY Verified 01/19/21 09:57 THOUGHT IT MADE ME ACT WERID hydroxyzine AdvReac Unknown PT STATES Verified 01/19/21 09:57 EYES DRIES ME UP venlafaxine AdvReac Unknown MADE MY Verified 01/19/21 09:57 BLOOD PRESSURE HIGH trazodone AdvReac heart Verified 01/19/21 09:57 palpatations MALIN NICOLAS Allergy Severe SWELLING Uncoded 01/19/21 09:57 FACE AND THROAT LACTOSE INTOLERANT AdvReac Unknown Uncoded 01/19/21 09:57 Review of Systems <Carlos Eduardo Miller DO - Last Filed: 03/14/21 15:27> Review of Systems Narrative: GENERAL: Denies chills, fatigue, malaise, fever, sweats. HEENT: Denies sinus pain, ear pain, sore throat, difficulty swallowing, dizziness. RESPIRATORY: See HPI CARDIOVASCULAR: See HPI GASTROINTESTINAL: Denies nausea, vomiting, abdominal pain, diarrhea, constipation, melena. : Denies dysuria, frequency, incontinence, hematuria, urinary retention. MUSCULOSKELETAL: denies weakness, joint pain, or bony pain SKIN: Denies rash, skin lesions, or other NEUROLOGIC: Denies weakness, headache, numbness, change in speech, confusion, seizures, incoordination. PSYCHIATRIC: No concerning psychosocial issues. 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) Diabetes mellitus (2003) Esophageal stricture (09/2017) Fibromyalgia (06/24/15) Generalized anxiety disorder GERD (gastroesophageal reflux disease) (1980) History of blood transfusion (~07/1981) Hyperlipidemia (1991) Hypertension (1991) Hypertensive urgency Influenza B Insomnia Kidney stones Lumbar spine pain Major depressive disorder, recurrent, moderate Menopausal symptoms Obstructive sleep apnea Pancreatitis (2010) Post-traumatic stress disorder, chronic Right fibular fracture Sarcoidosis Scoliosis Shoulder pain Spinal stenosis 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 (07/22/15) Vaginal atrophy Weakness of both legs Surgical History Anesthesia History of tonsillectomy (1967) S/P dilatation of esophageal stricture (09/2017) Status post cataract extraction Status post delivery (05/02/85) Status post cholecystectomy (02/1985) Status post hysterectomy (1986) Family History Brother Age: 64 Diabetes mellitus Child Age: 40 Asthma Child Heart defect Father Age: 84 Hypertension Cirrhosis of liver Mother Heart disease High cholesterol Amyloidosis Sister Age: 61 Diabetes mellitus Heart disease Sister Heart disease Social History household members: spouse Smoking Status: Former smoker alcohol intake: never Smoking Status: Former smoker alcohol intake frequency: holidays/special occasions only Substance Use Type: painkillers and prescription drug Exam <Carlos Eduardo Miller DO - Last Filed: 03/14/21 15:27> Narrative Exam Narrative: GENERAL: [56] year old patient appears stated age. Well-developed patient, in mild distress. HEAD: Atraumatic. Normocephalic. EYES: Pupils equal round and reactive. Extraocular motions intact. No scleral icterus. No injection or drainage. ENT: Nose without bleeding, purulent drainage. Throat without erythema, tonsillar hypertrophy or exudate. Airway patent. NECK: Trachea midline. Non tender CARDIOVASCULAR: Regular rate and rhythm without murmurs, gallops, or rubs. RESPIRATORY: Clear to auscultation. Breath sounds equal bilaterally. No wheezes, rales, or rhonchi. GASTROINTESTINAL: Abdomen soft, non-tender, nondistended. EXTREMITIES: No edema or joint tenderness. BACK: Nontender without deformity or crepitance. No flank tenderness. NEURO: AOx3. SKIN: No rash or erythema of visible areas Initial Vital Signs Initial Vital Signs: Vital Signs Temperature 97.0 F L 03/12/21 16:15 Pulse Rate 71 03/12/21 16:15 Respiratory Rate 16 03/12/21 16:15 Blood Pressure 110/78 03/12/21 16:15 Pulse Oximetry 98 03/12/21 16:15 <Cora Jean, DO - Last Filed: 03/14/21 06:43> Initial Vital Signs Initial Vital Signs: Vital Signs Temperature 97.0 F L 03/12/21 16:15 Pulse Rate 71 03/12/21 16:15 Respiratory Rate 16 03/12/21 16:15 Blood Pressure 110/78 03/12/21 16:15 Pulse Oximetry 98 03/12/21 16:15 <Keira Johnson, DO - Last Filed: 03/13/21 18:13> Initial Vital Signs Initial Vital Signs: Vital Signs Temperature 97.0 F L 03/12/21 16:15 Pulse Rate 71 03/12/21 16:15 Respiratory Rate 16 03/12/21 16:15 Blood Pressure 110/78 03/12/21 16:15 Pulse Oximetry 98 03/12/21 16:15 Course <Carlos Eduardo Miller, DO - Last Filed: 03/14/21 15:27> Course Course Narrative: Patient has low blood pressures in the 80s and 90s early on but no dizziness, weakness or lightheadedness, she has blood pressure cuff move from 1 arm for the other and this appears to be a legitimate finding. Fluids ordered, repeat EKG ordered. For this reason metoprolol and nitro are withheld. Upon receipt of troponin the heparin was ordered. Patient has been pain-free since heparin ordered. Orders Ordered: Discontinued Medications Hydrocodone Bitart/Acetaminophen (Hydrocodone/Acet 5/325 Prepack) 1 bottle MISC SEEINSTR ONE Stop: 03/12/21 17:30 Last Admin: 03/12/21 18:34 Dose: Not Given Documented by: [email or web address] Aspirin (Aspirin 81 Mg Chew Tab) 324 mg PO NOW ONE Stop: 03/12/21 18:44 Last Admin: 03/12/21 18:55 Dose: 324 mg Documented by: [email or web address] Aspirin (Aspirin 81 Mg Chew Tab) 324 mg PO DAILY [facility] Last Admin: 03/13/21 09:06 Dose: 324 mg Documented by: HARRIS Atorvastatin Calcium (Atorvastatin 20 Mg Tablet) 40 mg PO NOW ONE Stop: 03/12/21 18:44 Last Admin: 03/12/21 19:09 Dose: 40 mg Documented by: JUANCARLOS Atorvastatin Calcium (Atorvastatin 20 Mg Tablet) 40 mg PO DAILY [facility] Last Admin: 03/13/21 09:06 Dose: 40 mg Documented by: HARRIS Budesonide (Budesonide 0.5 Mg/2 Ml Neb) 0.5 mg INH BID PRN PRN Reason: wheezing Cefazolin Sodium (Cephalexin 250 Mg Prepack) 1 bottle MISC SEEINSTR ONE Stop: 03/12/21 17:30 Last Admin: 03/12/21 18:34 Dose: Not Given Documented by: JUANCARLOS Clonidine HCl (Clonidine 0.1 Mg Tablet) 0.2 mg PO NOW ONE Stop: 03/13/21 01:19 Last Admin: 03/13/21 01:28 Dose: 0.2 mg Documented by: JOSSELIN Clonidine HCl (Clonidine 0.1 Mg Tablet) 0.2 mg PO TID [facility] Clonidine HCl (Clonidine 0.1 Mg Tablet) 0.1 mg PO NOW ONE Stop: 03/13/21 13:01 Last Admin: 03/13/21 12:36 Dose: 0.1 mg Documented by: HARRIS Dextrose (Dextrose 50 % In Water 25 Gm/50 Ml Syringe) 25 gm IV PRN PRN PRN Reason: Hypoglycemia Heparin Sodium (Porcine) (Heparin 5,000 Unit/Ml Vial) 4,000 unit IV NOW ONE Stop: 03/12/21 17:04 Last Admin: 03/12/21 17:14 Dose: 4,000 unit Documented by: BETTYE Sodium Chloride (Normal Saline 0.9%) 1,000 mls @ 1,000 mls/hr IV BOLUS ONE Stop: 03/12/21 17:48 Last Infusion: 03/12/21 19:30 Dose: 0 mls/hr Documented by: Admin: 03/12/21 17:13 Dose: 1,000 mls/hr Documented by: BETTYE Heparin Sodium/Dextrose (Heparin Drip) 25,000 unit in 500 mls @ 11.757 mls/hr IV CONT [facility]; Protocol Last Titration: 03/13/21 15:33 Dose: 0 units/kg/hr, 0 mls/hr Documented by: Titration: 03/13/21 05:48 Dose: 4.8 units/kg/hr, 4.7 mls/hr Documented by: Titration: 03/13/21 01:26 Dose: 5.88 units/kg/hr, 5.757 mls/hr Documented by: Titration: 03/13/21 00:29 Dose: 0 units/kg/hr, 0 mls/hr Documented by: Admin: 03/12/21 17:14 Dose: 12 units/kg/hr, 11.757 mls/hr Documented by: BETTYE Sodium Chloride (Normal Saline 0.9%) 1,000 mls @ 500 mls/hr IV BOLUS ONE Stop: 03/13/21 08:39 Last Infusion: 03/13/21 08:53 Dose: 0 mls/hr Documented by: Admin: 03/13/21 06:45 Dose: 500 mls/hr Documented by: GAYATRI Insulin Glargine (Insulin Glargine 100 Unit/Ml 3ml Pen) 5 unit SUBCUT NOW ONE Stop: 03/12/21 22:24 Last Admin: 03/12/21 22:47 Dose: 5 unit Documented by: JUANCARLOS Cosigned by: JOSSELIN Insulin Human Lispro (Insulin Lispro 100 Unit/Ml 3ml Vial) 0 unit SUBCUT [facility]; Protocol Last Admin: 03/13/21 12:25 Dose: Not Given Documented by: Admin: 03/13/21 07:40 Dose: Not Given Documented by: HARRIS Labetalol HCl (Labetalol 20 Mg/4 Ml Syringe) 10 mg IV NOW ONE Stop: 03/13/21 02:10 Last Admin: 03/13/21 02:22 Dose: 10 mg Documented by: JOSSELIN Lorazepam (Lorazepam 2 Mg/Ml Inj) 0.5 mg IV NOW ONE Stop: 03/13/21 14:37 Last Admin: 03/13/21 14:40 Dose: 0.5 mg Documented by: HARRIS Metoprolol Tartrate (Metoprolol Tartrate 5 Mg/5 Ml Inj) 5 mg IV Q5M [facility] Stop: 03/12/21 18:56 Last Admin: 03/12/21 21:06 Dose: Not Given Documented by: Admin: 03/12/21 19:29 Dose: 5 mg Documented by: Admin: 03/12/21 19:09 Dose: 5 mg Documented by: JUANCARLOS Metoprolol Tartrate (Metoprolol Ir 25 Mg Tablet) 50 mg PO NOW ONE Stop: 03/12/21 21:44 Last Admin: 03/12/21 21:55 Dose: 50 mg Documented by: GAYATRI Nitroglycerin (Nitroglycerin Oint 1 Inch/Gm Oint...G.) 0.5 inch TOP NOW ONE Stop: 03/13/21 00:40 Last Admin: 03/13/21 01:04 Dose: 0.5 inch Documented by: JOSSELIN Nitroglycerin (Nitroglycerin 0.4 Mg Sl Tab) 0.4 mg SL NOW ONE Stop: 03/13/21 07:37 Last Admin: 03/13/21 07:38 Dose: 0.4 mg Documented by: HARRIS Nitroglycerin (Nitroglycerin 0.4 Mg Sl Tab) 0.4 mg SL NOW ONE Stop: 03/13/21 07:40 Last Admin: 03/13/21 07:41 Dose: Not Given Documented by: HARRIS Pantoprazole Sodium (Pantoprazole 40 Mg Vial) 40 mg IV DAILY [facility] Last Admin: 03/13/21 08:35 Dose: 40 mg Documented by: HARRIS Propranolol HCl (Propranolol 10 Mg Tablet) 20 mg PO TID [facility] Consultations Consultation #1: [facility] no beds [facility] no beds - on list [place] no beds - on list no beds - on list [place] no beds Vital Signs Vital signs: Vital Signs - 8 hr 03/13/21 10:15 03/13/21 10:30 03/13/21 11:00 Pulse Rate 53 L 79 56 L Respiratory Rate 17 17 15 Blood Pressure 112/59 L Pulse Oximetry 97 96 03/13/21 11:30 03/13/21 11:31 03/13/21 12:00 Pulse Rate 66 66 54 L Respiratory Rate 17 16 13 Blood Pressure 125/68 135/65 Pulse Oximetry 96 97 95 03/13/21 12:30 03/13/21 12:36 03/13/21 13:00 Pulse Rate 80 72 52 L Respiratory Rate 14 14 Blood Pressure 139/65 139/65 151/67 H Pulse Oximetry 96 96 03/13/21 13:30 03/13/21 13:31 03/13/21 14:00 Pulse Rate 52 L 52 L 51 L Respiratory Rate 22 16 14 Blood Pressure 105/52 L 101/51 L Pulse Oximetry 96 96 95 03/13/21 14:30 03/13/21 15:00 03/13/21 15:01 Pulse Rate 55 L 60 59 L Respiratory Rate 14 20 19 Blood Pressure 110/55 L 148/60 H Pulse Oximetry 95 96 96 <Cora Jean, - Last Filed: 03/14/21 06:43> Orders Ordered: Discontinued Medications Hydrocodone Bitart/Acetaminophen (Hydrocodone/Acet 5/325 Prepack) 1 bottle MISC SEEINSTR ONE Stop: 03/12/21 17:30 Last Admin: 03/12/21 18:34 Dose: Not Given Documented by: CTRDEBBIE Aspirin (Aspirin 81 Mg Chew Tab) 324 mg PO NOW ONE Stop: 03/12/21 18:44 Last Admin: 03/12/21 18:55 Dose: 324 mg Documented by: CTRDEBBIE Aspirin (Aspirin 81 Mg Chew Tab) 324 mg PO DAILY [facility] Last Admin: 03/13/21 09:06 Dose: 324 mg Documented by: HARRIS Atorvastatin Calcium (Atorvastatin 20 Mg Tablet) 40 mg PO NOW ONE Stop: 03/12/21 18:44 Last Admin: 03/12/21 19:09 Dose: 40 mg Documented by: JUANCARLOS Atorvastatin Calcium (Atorvastatin 20 Mg Tablet) 40 mg PO DAILY [facility] Last Admin: 03/13/21 09:06 Dose: 40 mg Documented by: HARRIS Budesonide (Budesonide 0.5 Mg/2 Ml Neb) 0.5 mg INH BID PRN PRN Reason: wheezing Cefazolin Sodium (Cephalexin 250 Mg Prepack) 1 bottle MISC SEEINSTR ONE Stop: 03/12/21 17:30 Last Admin: 03/12/21 18:34 Dose: Not Given Documented by: CTRDEBBIE Clonidine HCl (Clonidine 0.1 Mg Tablet) 0.2 mg PO NOW ONE Stop: 03/13/21 01:19 Last Admin: 03/13/21 01:28 Dose: 0.2 mg Documented by: JOSSELIN Clonidine HCl (Clonidine 0.1 Mg Tablet) 0.2 mg PO TID [facility] Clonidine HCl (Clonidine 0.1 Mg Tablet) 0.1 mg PO NOW ONE Stop: 03/13/21 13:01 Last Admin: 03/13/21 12:36 Dose: 0.1 mg Documented by: HARRIS Dextrose (Dextrose 50 % In Water 25 Gm/50 Ml Syringe) 25 gm IV PRN PRN PRN Reason: Hypoglycemia Heparin Sodium (Porcine) (Heparin 5,000 Unit/Ml Vial) 4,000 unit IV NOW ONE Stop: 03/12/21 17:04 Last Admin: 03/12/21 17:14 Dose: 4,000 unit Documented by: BETTYE Sodium Chloride (Normal Saline 0.9%) 1,000 mls @ 1,000 mls/hr IV BOLUS ONE Stop: 03/12/21 17:48 Last Infusion: 03/12/21 19:30 Dose: 0 mls/hr Documented by: Admin: 03/12/21 17:13 Dose: 1,000 mls/hr Documented by: BETTYE Heparin Sodium/Dextrose (Heparin Drip) 25,000 unit in 500 mls @ 11.757 mls/hr IV CONT [facility]; Protocol Last Titration: 03/13/21 15:33 Dose: 0 units/kg/hr, 0 mls/hr Documented by: Titration: 03/13/21 05:48 Dose: 4.8 units/kg/hr, 4.7 mls/hr Documented by: Titration: 03/13/21 01:26 Dose: 5.88 units/kg/hr, 5.757 mls/hr Documented by: Titration: 03/13/21 00:29 Dose: 0 units/kg/hr, 0 mls/hr Documented by: Admin: 03/12/21 17:14 Dose: 12 units/kg/hr, 11.757 mls/hr Documented by: BETTYE Sodium Chloride (Normal Saline 0.9%) 1,000 mls @ 500 mls/hr IV BOLUS ONE Stop: 03/13/21 08:39 Last Infusion: 03/13/21 08:53 Dose: 0 mls/hr Documented by: Admin: 03/13/21 06:45 Dose: 500 mls/hr Documented by: GAYATRI Insulin Glargine (Insulin Glargine 100 Unit/Ml 3ml Pen) 5 unit SUBCUT NOW ONE Stop: 03/12/21 22:24 Last Admin: 03/12/21 22:47 Dose: 5 unit Documented by: JUANCARLOS Cosigned by: JOSSELIN Insulin Human Lispro (Insulin Lispro 100 Unit/Ml 3ml Vial) 0 unit SUBCUT [facility]; Protocol Last Admin: 03/13/21 12:25 Dose: Not Given Documented by: Admin: 03/13/21 07:40 Dose: Not Given Documented by: HARRIS Labetalol HCl (Labetalol 20 Mg/4 Ml Syringe) 10 mg IV NOW ONE Stop: 03/13/21 02:10 Last Admin: 03/13/21 02:22 Dose: 10 mg Documented by: JOSSELIN Lorazepam (Lorazepam 2 Mg/Ml Inj) 0.5 mg IV NOW ONE Stop: 03/13/21 14:37 Last Admin: 03/13/21 14:40 Dose: 0.5 mg Documented by: HARRIS Metoprolol Tartrate (Metoprolol Tartrate 5 Mg/5 Ml Inj) 5 mg IV Q5M [facility] Stop: 03/12/21 18:56 Last Admin: 03/12/21 21:06 Dose: Not Given Documented by: Admin: 03/12/21 19:29 Dose: 5 mg Documented by: Admin: 03/12/21 19:09 Dose: 5 mg Documented by: JUANCARLOS Metoprolol Tartrate (Metoprolol Ir 25 Mg Tablet) 50 mg PO NOW ONE Stop: 03/12/21 21:44 Last Admin: 03/12/21 21:55 Dose: 50 mg Documented by: GAYATRI Nitroglycerin (Nitroglycerin Oint 1 Inch/Gm Oint...G.) 0.5 inch TOP NOW ONE Stop: 03/13/21 00:40 Last Admin: 03/13/21 01:04 Dose: 0.5 inch Documented by: JOSSELIN Nitroglycerin (Nitroglycerin 0.4 Mg Sl Tab) 0.4 mg SL NOW ONE Stop: 03/13/21 07:37 Last Admin: 03/13/21 07:38 Dose: 0.4 mg Documented by: HARRIS Nitroglycerin (Nitroglycerin 0.4 Mg Sl Tab) 0.4 mg SL NOW ONE Stop: 03/13/21 07:40 Last Admin: 03/13/21 07:41 Dose: Not Given Documented by: HARRIS Pantoprazole Sodium (Pantoprazole 40 Mg Vial) 40 mg IV DAILY [facility] Last Admin: 03/13/21 08:35 Dose: 40 mg Documented by: HARRIS Propranolol HCl (Propranolol 10 Mg Tablet) 20 mg PO TID [facility] Reevaluation(s) Reevaluation #1: Patient was seen and evaluated by myself after sign out by Dr. Miller. Patient arrived with chest pain that is been present for 2 days. Patient's chest pain resolved after heparin was started and she states has continued to be resolved. Notes in addition to her history as stated in the HPI that she has a maternal family history of amyloidosis and that her mother had heart attack secondary to cardiac amyloidosis and was unaware of it in her 50s or 60s. Patient has continued to be asymptomatic. Her blood pressure was continuing to climb overnight. Patient had an episode of hypotension initially within was increasing into the 190s and 200s. Patient had received metoprolol IV from Dr. Miller and a dose of oral metoprolol was ordered. It was noted that she had not taken her oral Suboxone which she normally takes, after further review and discussion with patient she has also not had her daily Catapres or propranolol. Patient does note that she stopped her Adderall about 3 days ago because she noted her blood pressures have been high recently. Patient continued to be quite elevated and nitropaste was placed for BP, as well as patient oral Catapres. She continued to be quite elevated and dose of labetalol was given and patient had significant improvement. Patient did receive 324 mg of aspirin is on heparin currently. Patient's labs were reviewed including her troponin which were slowly trending upwards, CT angio shows patchy ground [place] is a ground-glass opacity with evaluation for pulmonary edema versus atypical infiltrate or COVID. Patient is COVID negative she has not had any other known infectious symptoms. Patient's sliding scale as well as Lantus were ordered. She did receive a statin overnight. Scheduled med were ordered. Labs were repeated with a stable hemoglobin, creatinine slightly improved and glucose at 1:28 a.m. Troponin on recheck is 4.3, patient asymptomatic, EKG repeated no acute changes. Case discussed with cardiology, Dr. Mcgee, [facility]. Despite patient's considerably increased troponin from 0.6-4 she does feel patient needs a cardiac catheterization but does not need stat transfer at this time. She did give recommendations regarding patient's blood pressure medication recommends having her Catapres and not given additional dose until 1300. Patient continues to be chest pain free here in the department. Awaiting disposition, patient is on waitlist for [facility] in [place]. No beds available at other surrounding facilities. Consultations Consultation #1: [facility] no beds [facility] no beds - on list [facility] no beds - on list [facility] no beds - on list [place] no beds [facility] no beds. Consultation #2: Dr. Mcgee, cardiology [facility]. Vital Signs Vital signs: Vital Signs - 8 hr 03/13/21 10:15 03/13/21 10:30 03/13/21 11:00 Pulse Rate 53 L 79 56 L Respiratory Rate 17 17 15 Blood Pressure 112/59 L Pulse Oximetry 97 96 03/13/21 11:30 03/13/21 11:31 03/13/21 12:00 Pulse Rate 66 66 54 L Respiratory Rate 17 16 13 Blood Pressure 125/68 135/65 Pulse Oximetry 96 97 95 03/13/21 12:30 03/13/21 12:36 03/13/21 13:00 Pulse Rate 80 72 52 L Respiratory Rate 14 14 Blood Pressure 139/65 139/65 151/67 H Pulse Oximetry 96 96 03/13/21 13:30 03/13/21 13:31 03/13/21 14:00 Pulse Rate 52 L 52 L 51 L Respiratory Rate 22 16 14 Blood Pressure 105/52 L 101/51 L Pulse Oximetry 96 96 95 03/13/21 14:30 03/13/21 15:00 03/13/21 15:01 Pulse Rate 55 L 60 59 L Respiratory Rate 14 20 19 Blood Pressure 110/55 L 148/60 H Pulse Oximetry 95 96 96 <Keira Johnson, - Last Filed: 03/13/21 18:13> Orders Ordered: Discontinued Medications Hydrocodone Bitart/Acetaminophen (Hydrocodone/Acet 5/325 Prepack) 1 bottle MISC SEEINSTR ONE Stop: 03/12/21 17:30 Last Admin: 03/12/21 18:34 Dose: Not Given Documented by: JUANCARLOS Aspirin (Aspirin 81 Mg Chew Tab) 324 mg PO NOW ONE Stop: 03/12/21 18:44 Last Admin: 03/12/21 18:55 Dose: 324 mg Documented by: JUANCARLOS Aspirin (Aspirin 81 Mg Chew Tab) 324 mg PO DAILY [facility] Last Admin: 03/13/21 09:06 Dose: 324 mg Documented by: HARRIS Atorvastatin Calcium (Atorvastatin 20 Mg Tablet) 40 mg PO NOW ONE Stop: 03/12/21 18:44 Last Admin: 03/12/21 19:09 Dose: 40 mg Documented by: JUANCARLOS Atorvastatin Calcium (Atorvastatin 20 Mg Tablet) 40 mg PO DAILY [facility] Last Admin: 03/13/21 09:06 Dose: 40 mg Documented by: HARRIS Budesonide (Budesonide 0.5 Mg/2 Ml Neb) 0.5 mg INH BID PRN PRN Reason: wheezing Cefazolin Sodium (Cephalexin 250 Mg Prepack) 1 bottle MISC SEEINSTR ONE Stop: 03/12/21 17:30 Last Admin: 03/12/21 18:34 Dose: Not Given Documented by: JUANCARLOS Clonidine HCl (Clonidine 0.1 Mg Tablet) 0.2 mg PO NOW ONE Stop: 03/13/21 01:19 Last Admin: 03/13/21 01:28 Dose: 0.2 mg Documented by: JOSSELIN Clonidine HCl (Clonidine 0.1 Mg Tablet) 0.2 mg PO TID [facility] Clonidine HCl (Clonidine 0.1 Mg Tablet) 0.1 mg PO NOW ONE Stop: 03/13/21 13:01 Last Admin: 03/13/21 12:36 Dose: 0.1 mg Documented by: HARRIS Dextrose (Dextrose 50 % In Water 25 Gm/50 Ml Syringe) 25 gm IV PRN PRN PRN Reason: Hypoglycemia Heparin Sodium (Porcine) (Heparin 5,000 Unit/Ml Vial) 4,000 unit IV NOW ONE Stop: 03/12/21 17:04 Last Admin: 03/12/21 17:14 Dose: 4,000 unit Documented by: BETTYE Sodium Chloride (Normal Saline 0.9%) 1,000 mls @ 1,000 mls/hr IV BOLUS ONE Stop: 03/12/21 17:48 Last Infusion: 03/12/21 19:30 Dose: 0 mls/hr Documented by: Admin: 03/12/21 17:13 Dose: 1,000 mls/hr Documented by: BETTYE Heparin Sodium/Dextrose (Heparin Drip) 25,000 unit in 500 mls @ 11.757 mls/hr IV CONT [facility]; Protocol Last Titration: 03/13/21 15:33 Dose: 0 units/kg/hr, 0 mls/hr Documented by: Titration: 03/13/21 05:48 Dose: 4.8 units/kg/hr, 4.7 mls/hr Documented by: Titration: 03/13/21 01:26 Dose: 5.88 units/kg/hr, 5.757 mls/hr Documented by: Titration: 03/13/21 00:29 Dose: 0 units/kg/hr, 0 mls/hr Documented by: Admin: 03/12/21 17:14 Dose: 12 units/kg/hr, 11.757 mls/hr Documented by: BETTYE Sodium Chloride (Normal Saline 0.9%) 1,000 mls @ 500 mls/hr IV BOLUS ONE Stop: 03/13/21 08:39 Last Infusion: 03/13/21 08:53 Dose: 0 mls/hr Documented by: Admin: 03/13/21 06:45 Dose: 500 mls/hr Documented by: GAYATRI Insulin Glargine (Insulin Glargine 100 Unit/Ml 3ml Pen) 5 unit SUBCUT NOW ONE Stop: 03/12/21 22:24 Last Admin: 03/12/21 22:47 Dose: 5 unit Documented by: JUANCARLOS Cosigned by: JOSSELIN Insulin Human Lispro (Insulin Lispro 100 Unit/Ml 3ml Vial) 0 unit SUBCUT ACHS [facility]; Protocol Last Admin: 03/13/21 12:25 Dose: Not Given Documented by: Admin: 03/13/21 07:40 Dose: Not Given Documented by: HARRIS Labetalol HCl (Labetalol 20 Mg/4 Ml Syringe) 10 mg IV NOW ONE Stop: 03/13/21 02:10 Last Admin: 03/13/21 02:22 Dose: 10 mg Documented by: JOSSELIN Lorazepam (Lorazepam 2 Mg/Ml Inj) 0.5 mg IV NOW ONE Stop: 03/13/21 14:37 Last Admin: 03/13/21 14:40 Dose: 0.5 mg Documented by: HARRIS Metoprolol Tartrate (Metoprolol Tartrate 5 Mg/5 Ml Inj) 5 mg IV Q5M [facility] Stop: 03/12/21 18:56 Last Admin: 03/12/21 21:06 Dose: Not Given Documented by: Admin: 03/12/21 19:29 Dose: 5 mg Documented by: Admin: 03/12/21 19:09 Dose: 5 mg Documented by: JUANCARLOS Metoprolol Tartrate (Metoprolol Ir 25 Mg Tablet) 50 mg PO NOW ONE Stop: 03/12/21 21:44 Last Admin: 03/12/21 21:55 Dose: 50 mg Documented by: GAYATRI Nitroglycerin (Nitroglycerin Oint 1 Inch/Gm Oint...G.) 0.5 inch TOP NOW ONE Stop: 03/13/21 00:40 Last Admin: 03/13/21 01:04 Dose: 0.5 inch Documented by: JOSSELIN Nitroglycerin (Nitroglycerin 0.4 Mg Sl Tab) 0.4 mg SL NOW ONE Stop: 03/13/21 07:37 Last Admin: 03/13/21 07:38 Dose: 0.4 mg Documented by: HARRIS Nitroglycerin (Nitroglycerin 0.4 Mg Sl Tab) 0.4 mg SL NOW ONE Stop: 03/13/21 07:40 Last Admin: 03/13/21 07:41 Dose: Not Given Documented by: HARRIS Pantoprazole Sodium (Pantoprazole 40 Mg Vial) 40 mg IV DAILY [facility] Last Admin: 03/13/21 08:35 Dose: 40 mg Documented by: HARRIS Propranolol HCl (Propranolol 10 Mg Tablet) 20 mg PO TID [facility] Vital Signs Vital signs: Vital Signs - 8 hr 03/13/21 10:15 03/13/21 10:30 03/13/21 11:00 Pulse Rate 53 L 79 56 L Respiratory Rate 17 17 15 Blood Pressure 112/59 L Pulse Oximetry 97 96 03/13/21 11:30 03/13/21 11:31 03/13/21 12:00 Pulse Rate 66 66 54 L Respiratory Rate 17 16 13 Blood Pressure 125/68 135/65 Pulse Oximetry 96 97 95 03/13/21 12:30 03/13/21 12:36 03/13/21 13:00 Pulse Rate 80 72 52 L Respiratory Rate 14 14 Blood Pressure 139/65 139/65 151/67 H Pulse Oximetry 96 96 03/13/21 13:30 03/13/21 13:31 03/13/21 14:00 Pulse Rate 52 L 52 L 51 L Respiratory Rate 22 16 14 Blood Pressure 105/52 L 101/51 L Pulse Oximetry 96 96 95 03/13/21 14:30 03/13/21 15:00 03/13/21 15:01 Pulse Rate 55 L 60 59 L Respiratory Rate 14 20 19 Blood Pressure 110/55 L 148/60 H Pulse Oximetry 95 96 96 MDM - Chest Pain <Carlos Eduardo Miller DO - Last Filed: 03/14/21 15:27> Lab Data Result diagrams: 03/13/21 05:21 03/13/21 05:21 Labs: Lab Results 03/12/21 03/12/21 03/12/21 Range/Units 16:25 16:25 17:18 WBC 8.3 (4.5-11.0) X10^3/uL RBC 3.55 L (4.0-5.2) X10^6/uL Hgb 10.7 L (12.0-16.0) g/dL Hct 32.6 L (36-46) % MCV 91.7 (80-100) fL MCH 30.1 (26-34) PG MCHC 32.8 (30-36) % RDW 13.8 (11.6-14.8) % Plt Count 215 (150-400) X10^3/uL Neut % (Auto) 66.3 (50-75) % Lymph % (Auto) 24.3 L (25-40) % [place] % (Auto) 3.9 (3-14) % Eos % (Auto) 4.4 H (2-4) % Baso % (Auto) 1.1 (0-2) % Neut # (Auto) 5500 (7546-4633) /uL Lymph # (Auto) 2000 (0899-6297) /uL [place] # (Auto) 300 (0-900) /uL Eos # (Auto) 400 (0-450) /uL Baso # (Auto) 100 (0-100) /uL PT 11.6 (10.1-12.7) SECONDS INR 1.0 (0.9-1.3) APTT 35 (26.4-36.2) SECONDS D-Dimer 272 H (<230) ng/mL Sodium 137 (137-145) mmol/L Potassium 4.5 (3.4-5.1) mmol/L Chloride 109 H (98-107) mmol/L Carbon Dioxide 21 L (22-32) mmol/L BUN 28 H (7-17) mg/dL Creatinine 1.30 H (0.52-1.04) mg/dL Estimated GFR 42.1 L (>60) mL/min BUN/Creatinine Ratio 21.5 (6-22) Glucose 239 H (70-100) mg/dL Calcium 8.6 (8.4-10.2) mg/dL Total Bilirubin 0.4 (0.2-1.3) mg/dL AST 37 H (14-36) IU/L ALT 21 (<35) IU/L Alkaline Phosphatase 244 H (38-126) U/L Total Creatine Kinase 83 (30-135) U/L CK-MB (CK-2) TNP CK-MB (CK-2) Rel Index TNP Troponin I 0.605 H* (0.01-0.034) ng/mL NT-Pro-B Natriuret Pep (<125) pg/mL Total Protein 6.8 (6.3-8.2) g/dL Albumin 3.5 (3.5-5.0) g/dL Globulin 3.3 (1.7-4.1) g/dL Albumin/Globulin Ratio 1.1 (1.0-2.8) Lipase 141 (23-300) U/L SARS-CoV-2 (PCR) (Negative) 03/12/21 03/12/21 03/12/21 Range/Units 18:00 19:00 23:20 WBC (4.5-11.0) X10^3/uL RBC (4.0-5.2) X10^6/uL Hgb (12.0-16.0) g/dL Hct (36-46) % MCV (80-100) fL MCH (26-34) PG MCHC (30-36) % RDW (11.6-14.8) % Plt Count (150-400) X10^3/uL Neut % (Auto) (50-75) % Lymph % (Auto) (25-40) % [place] % (Auto) (3-14) % Eos % (Auto) (2-4) % Baso % (Auto) (0-2) % Neut # (Auto) (1145-0390) /uL Lymph # (Auto) (1371-7908) /uL [place] # (Auto) (0-900) /uL Eos # (Auto) (0-450) /uL Baso # (Auto) (0-100) /uL PT (10.1-12.7) SECONDS INR (0.9-1.3) APTT > 400 H* D (26.4-36.2) SECONDS D-Dimer (<230) ng/mL Sodium (137-145) mmol/L Potassium (3.4-5.1) mmol/L Chloride (98-107) mmol/L Carbon Dioxide (22-32) mmol/L BUN (7-17) mg/dL Creatinine (0.52-1.04) mg/dL Estimated GFR (>60) mL/min BUN/Creatinine Ratio (6-22) Glucose (70-100) mg/dL Calcium (8.4-10.2) mg/dL Total Bilirubin (0.2-1.3) mg/dL AST (14-36) IU/L ALT (<35) IU/L Alkaline Phosphatase (38-126) U/L Total Creatine Kinase (30-135) U/L CK-MB (CK-2) CK-MB (CK-2) Rel Index Troponin I 0.688 H* (0.01-0.034) ng/mL NT-Pro-B Natriuret Pep (<125) pg/mL Total Protein (6.3-8.2) g/dL Albumin (3.5-5.0) g/dL Globulin (1.7-4.1) g/dL Albumin/Globulin Ratio (1.0-2.8) Lipase (23-300) U/L SARS-CoV-2 (PCR) Negative (Negative) 03/13/21 03/13/21 03/13/21 Range/Units 05:21 05:21 05:21 WBC 10.2 (4.5-11.0) X10^3/uL RBC 3.41 L (4.0-5.2) X10^6/uL Hgb 10.1 L (12.0-16.0) g/dL Hct 31.1 L (36-46) % MCV 91.1 (80-100) fL MCH 29.7 (26-34) PG MCHC 32.6 (30-36) % RDW 13.9 (11.6-14.8) % Plt Count 189 (150-400) X10^3/uL Neut % (Auto) 58.2 (50-75) % Lymph % (Auto) 30.9 (25-40) % [place] % (Auto) 6.7 (3-14) % Eos % (Auto) 3.3 (2-4) % Baso % (Auto) 0.9 (0-2) % Neut # (Auto) 6000 (2222-9305) /uL Lymph # (Auto) 3200 (0181-4415) /uL [place] # (Auto) 700 (0-900) /uL Eos # (Auto) 300 (0-450) /uL Baso # (Auto) 100 (0-100) /uL PT (10.1-12.7) SECONDS INR (0.9-1.3) APTT 77 H* D (26.4-36.2) SECONDS D-Dimer (<230) ng/mL Sodium 138 (137-145) mmol/L Potassium 4.6 (3.4-5.1) mmol/L Chloride 110 H (98-107) mmol/L Carbon Dioxide 24 (22-32) mmol/L BUN 24 H (7-17) mg/dL Creatinine 1.20 H (0.52-1.04) mg/dL Estimated GFR 46.1 L (>60) mL/min BUN/Creatinine Ratio 20.0 (6-22) Glucose 128 H D (70-100) mg/dL Calcium 8.6 (8.4-10.2) mg/dL Total Bilirubin (0.2-1.3) mg/dL AST (14-36) IU/L ALT (<35) IU/L Alkaline Phosphatase (38-126) U/L Total Creatine Kinase (30-135) U/L CK-MB (CK-2) CK-MB (CK-2) Rel Index Troponin I 4.340 H* (0.01-0.034) ng/mL NT-Pro-B Natriuret Pep (<125) pg/mL Total Protein (6.3-8.2) g/dL Albumin (3.5-5.0) g/dL Globulin (1.7-4.1) g/dL Albumin/Globulin Ratio (1.0-2.8) Lipase (23-300) U/L SARS-CoV-2 (PCR) (Negative) 03/13/21 03/13/21 03/13/21 Range/Units 05:21 11:30 11:30 WBC (4.5-11.0) X10^3/uL RBC (4.0-5.2) X10^6/uL Hgb (12.0-16.0) g/dL Hct (36-46) % MCV (80-100) fL MCH (26-34) PG MCHC (30-36) % RDW (11.6-14.8) % Plt Count (150-400) X10^3/uL Neut % (Auto) (50-75) % Lymph % (Auto) (25-40) % [place] % (Auto) (3-14) % Eos % (Auto) (2-4) % Baso % (Auto) (0-2) % Neut # (Auto) (3955-0754) /uL Lymph # (Auto) (9256-9509) /uL [place] # (Auto) (0-900) /uL Eos # (Auto) (0-450) /uL Baso # (Auto) (0-100) /uL PT (10.1-12.7) SECONDS INR (0.9-1.3) APTT 50 H D (26.4-36.2) SECONDS D-Dimer (<230) ng/mL Sodium (137-145) mmol/L Potassium (3.4-5.1) mmol/L Chloride (98-107) mmol/L Carbon Dioxide (22-32) mmol/L BUN (7-17) mg/dL Creatinine (0.52-1.04) mg/dL Estimated GFR (>60) mL/min BUN/Creatinine Ratio (6-22) Glucose (70-100) mg/dL Calcium (8.4-10.2) mg/dL Total Bilirubin (0.2-1.3) mg/dL AST (14-36) IU/L ALT (<35) IU/L Alkaline Phosphatase (38-126) U/L Total Creatine Kinase (30-135) U/L CK-MB (CK-2) CK-MB (CK-2) Rel Index Troponin I 3.650 H* (0.01-0.034) ng/mL NT-Pro-B Natriuret Pep 5880 H (<125) pg/mL Total Protein (6.3-8.2) g/dL Albumin (3.5-5.0) g/dL Globulin (1.7-4.1) g/dL Albumin/Globulin Ratio (1.0-2.8) Lipase (23-300) U/L SARS-CoV-2 (PCR) (Negative) Point of Care Testing Glucose POC 132 Urine Dip Bedside Urine Glucose Negative Bedside Urine Bilirubin - Negative Bedside Urine Ketone - Negative Urine Specific [place] 1.015 Bedside Urine Occult Blood - Negative Bedside Urine pH 6.5 Bedside Urine Protein - Negative Bedside Urine Urobilinogen - Negative Bedside Urine Nitrite - Negative Bedside Urine Leukocytes - Negative Esterase Imaging Data CT scan - chest: Radiologist's Impression: [address] [id number] Scan ReportSigned Patient: Keila Godfrey [facility]#: [id number]: 1965Acct:[id number]/Sex: 56 / FDate of Service: 03/12/21Loc: EDAccession Number: [id number] Procedure: CT angio chest PE protocol Ordering Provider: Carlos Eduardo Miller D.O. PROCEDURE: CT ANGIO CHEST PE PROTOCOL INDICATIONS: CP, short of breath, radiates to back TECHNIQUE: After the administration of intravenous contrast, 2 mm thick sections acquired from the pulmonary apices to the posterior costophrenic angles. 3-dimensional maximum intensity projection (MIP) coronal and sagittal reformats were then acquired through the thorax. For radiation dose reduction, the following was used: automated exposure control, adjustment of mA and/or kV according to patient size. COMPARISON: [facility], CR, XR CHEST 1V, 03/12/2021, 16:31. [facility], CT, CT CHEST WITH CONTRAST, 12/06/2018, 10:58. FINDINGS: Image quality: Excellent. Pulmonary arteries: Pulmonary arteries are normal in size, and demonstrate no intraluminal filling defects to suggest central pulmonary embolism. Lungs and pleura: Patchy areas of ground-glass opacity can be seen within the lungs, which are more prominent peripherally and inferiorly and slightly worse on the right than on the left. No pleural effusions or pneumothorax. Central and peripheral airways are patent. Mediastinum: Heart size is normal, without pericardial effusion. No mediastinal or hilar adenopathy. Thoracic aorta is normal in caliber and enhancement. Esophagus is normal in caliber. There is a small to moderate hiatal hernia. Bones and chest wall: No suspicious bony lesions. Ribs and thoracic spine appear intact throughout. There is moderate dextroconvex scoliosis. Age-appropriate bony degenerative changes are seen. Thyroid gland demonstrates no significant abnormality. No axillary or supraclavicular adenopathy. Abdomen: Cholecystectomy clips are seen. The liver demonstrates a nodular contour. The visualized portions of the upper abdominal structures are otherwise unremarkable for imaging technique. IMPRESSION: Patchy areas of ground-glass opacity can be seen. Please consider pulmonary edema versus atypical infiltrate, including COVID pneumonia. Incidental note is made of: Cholecystectomy Liver cirrhosis suspected Dictated by: Alessandro Najera M.D. on 03/12/2021 at 16:38 Approved by: Alessandro Najera M.D. on 03/12/2021 at 16:41 <Cora Jean, DO - Last Filed: 03/14/21 06:43> Lab Data Labs: Lab Results 03/12/21 03/12/21 03/12/21 Range/Units 16:25 16:25 17:18 WBC 8.3 (4.5-11.0) X10^3/uL RBC 3.55 L (4.0-5.2) X10^6/uL Hgb 10.7 L (12.0-16.0) g/dL Hct 32.6 L (36-46) % MCV 91.7 (80-100) fL MCH 30.1 (26-34) PG MCHC 32.8 (30-36) % RDW 13.8 (11.6-14.8) % Plt Count 215 (150-400) X10^3/uL Neut % (Auto) 66.3 (50-75) % Lymph % (Auto) 24.3 L (25-40) % [place] % (Auto) 3.9 (3-14) % Eos % (Auto) 4.4 H (2-4) % Baso % (Auto) 1.1 (0-2) % Neut # (Auto) 5500 (3321-8982) /uL Lymph # (Auto) 2000 (4518-4232) /uL [place] # (Auto) 300 (0-900) /uL Eos # (Auto) 400 (0-450) /uL Baso # (Auto) 100 (0-100) /uL PT 11.6 (10.1-12.7) SECONDS INR 1.0 (0.9-1.3) APTT 35 (26.4-36.2) SECONDS D-Dimer 272 H (<230) ng/mL Sodium 137 (137-145) mmol/L Potassium 4.5 (3.4-5.1) mmol/L Chloride 109 H (98-107) mmol/L Carbon Dioxide 21 L (22-32) mmol/L BUN 28 H (7-17) mg/dL Creatinine 1.30 H (0.52-1.04) mg/dL Estimated GFR 42.1 L (>60) mL/min BUN/Creatinine Ratio 21.5 (6-22) Glucose 239 H (70-100) mg/dL Calcium 8.6 (8.4-10.2) mg/dL Total Bilirubin 0.4 (0.2-1.3) mg/dL AST 37 H (14-36) IU/L ALT 21 (<35) IU/L Alkaline Phosphatase 244 H (38-126) U/L Total Creatine Kinase 83 (30-135) U/L CK-MB (CK-2) TNP CK-MB (CK-2) Rel Index TNP Troponin I 0.605 H* (0.01-0.034) ng/mL NT-Pro-B Natriuret Pep (<125) pg/mL Total Protein 6.8 (6.3-8.2) g/dL Albumin 3.5 (3.5-5.0) g/dL Globulin 3.3 (1.7-4.1) g/dL Albumin/Globulin Ratio 1.1 (1.0-2.8) Lipase 141 (23-300) U/L SARS-CoV-2 (PCR) (Negative) 03/12/21 03/12/21 03/12/21 Range/Units 18:00 19:00 23:20 WBC (4.5-11.0) X10^3/uL RBC (4.0-5.2) X10^6/uL Hgb (12.0-16.0) g/dL Hct (36-46) % MCV (80-100) fL MCH (26-34) PG MCHC (30-36) % RDW (11.6-14.8) % Plt Count (150-400) X10^3/uL Neut % (Auto) (50-75) % Lymph % (Auto) (25-40) % [place] % (Auto) (3-14) % Eos % (Auto) (2-4) % Baso % (Auto) (0-2) % Neut # (Auto) (9174-1199) /uL Lymph # (Auto) (9071-1653) /uL [place] # (Auto) (0-900) /uL Eos # (Auto) (0-450) /uL Baso # (Auto) (0-100) /uL PT (10.1-12.7) SECONDS INR (0.9-1.3) APTT > 400 H* D (26.4-36.2) SECONDS D-Dimer (<230) ng/mL Sodium (137-145) mmol/L Potassium (3.4-5.1) mmol/L Chloride (98-107) mmol/L Carbon Dioxide (22-32) mmol/L BUN (7-17) mg/dL Creatinine (0.52-1.04) mg/dL Estimated GFR (>60) mL/min BUN/Creatinine Ratio (6-22) Glucose (70-100) mg/dL Calcium (8.4-10.2) mg/dL Total Bilirubin (0.2-1.3) mg/dL AST (14-36) IU/L ALT (<35) IU/L Alkaline Phosphatase (38-126) U/L Total Creatine Kinase (30-135) U/L CK-MB (CK-2) CK-MB (CK-2) Rel Index Troponin I 0.688 H* (0.01-0.034) ng/mL NT-Pro-B Natriuret Pep (<125) pg/mL Total Protein (6.3-8.2) g/dL Albumin (3.5-5.0) g/dL Globulin (1.7-4.1) g/dL Albumin/Globulin Ratio (1.0-2.8) Lipase (23-300) U/L SARS-CoV-2 (PCR) Negative (Negative) 03/13/21 03/13/21 03/13/21 Range/Units 05:21 05:21 05:21 WBC 10.2 (4.5-11.0) X10^3/uL RBC 3.41 L (4.0-5.2) X10^6/uL Hgb 10.1 L (12.0-16.0) g/dL Hct 31.1 L (36-46) % MCV 91.1 (80-100) fL MCH 29.7 (26-34) PG MCHC 32.6 (30-36) % RDW 13.9 (11.6-14.8) % Plt Count 189 (150-400) X10^3/uL Neut % (Auto) 58.2 (50-75) % Lymph % (Auto) 30.9 (25-40) % [place] % (Auto) 6.7 (3-14) % Eos % (Auto) 3.3 (2-4) % Baso % (Auto) 0.9 (0-2) % Neut # (Auto) 6000 (0729-4341) /uL Lymph # (Auto) 3200 (0708-9396) /uL [place] # (Auto) 700 (0-900) /uL Eos # (Auto) 300 (0-450) /uL Baso # (Auto) 100 (0-100) /uL PT (10.1-12.7) SECONDS INR (0.9-1.3) APTT 77 H* D (26.4-36.2) SECONDS D-Dimer (<230) ng/mL Sodium 138 (137-145) mmol/L Potassium 4.6 (3.4-5.1) mmol/L Chloride 110 H (98-107) mmol/L Carbon Dioxide 24 (22-32) mmol/L BUN 24 H (7-17) mg/dL Creatinine 1.20 H (0.52-1.04) mg/dL Estimated GFR 46.1 L (>60) mL/min BUN/Creatinine Ratio 20.0 (6-22) Glucose 128 H D (70-100) mg/dL Calcium 8.6 (8.4-10.2) mg/dL Total Bilirubin (0.2-1.3) mg/dL AST (14-36) IU/L ALT (<35) IU/L Alkaline Phosphatase (38-126) U/L Total Creatine Kinase (30-135) U/L CK-MB (CK-2) CK-MB (CK-2) Rel Index Troponin I 4.340 H* (0.01-0.034) ng/mL NT-Pro-B Natriuret Pep (<125) pg/mL Total Protein (6.3-8.2) g/dL Albumin (3.5-5.0) g/dL Globulin (1.7-4.1) g/dL Albumin/Globulin Ratio (1.0-2.8) Lipase (23-300) U/L SARS-CoV-2 (PCR) (Negative) 03/13/21 03/13/21 03/13/21 Range/Units 05:21 11:30 11:30 WBC (4.5-11.0) X10^3/uL RBC (4.0-5.2) X10^6/uL Hgb (12.0-16.0) g/dL Hct (36-46) % MCV (80-100) fL MCH (26-34) PG MCHC (30-36) % RDW (11.6-14.8) % Plt Count (150-400) X10^3/uL Neut % (Auto) (50-75) % Lymph % (Auto) (25-40) % [place] % (Auto) (3-14) % Eos % (Auto) (2-4) % Baso % (Auto) (0-2) % Neut # (Auto) (5327-2673) /uL Lymph # (Auto) (6312-5223) /uL [place] # (Auto) (0-900) /uL Eos # (Auto) (0-450) /uL Baso # (Auto) (0-100) /uL PT (10.1-12.7) SECONDS INR (0.9-1.3) APTT 50 H D (26.4-36.2) SECONDS D-Dimer (<230) ng/mL Sodium (137-145) mmol/L Potassium (3.4-5.1) mmol/L Chloride (98-107) mmol/L Carbon Dioxide (22-32) mmol/L BUN (7-17) mg/dL Creatinine (0.52-1.04) mg/dL Estimated GFR (>60) mL/min BUN/Creatinine Ratio (6-22) Glucose (70-100) mg/dL Calcium (8.4-10.2) mg/dL Total Bilirubin (0.2-1.3) mg/dL AST (14-36) IU/L ALT (<35) IU/L Alkaline Phosphatase (38-126) U/L Total Creatine Kinase (30-135) U/L CK-MB (CK-2) CK-MB (CK-2) Rel Index Troponin I 3.650 H* (0.01-0.034) ng/mL NT-Pro-B Natriuret Pep 5880 H (<125) pg/mL Total Protein (6.3-8.2) g/dL Albumin (3.5-5.0) g/dL Globulin (1.7-4.1) g/dL Albumin/Globulin Ratio (1.0-2.8) Lipase (23-300) U/L SARS-CoV-2 (PCR) (Negative) Point of Care Testing Glucose POC 132 Urine Dip Bedside Urine Glucose Negative Bedside Urine Bilirubin - Negative Bedside Urine Ketone - Negative Urine Specific [place] 1.015 Bedside Urine Occult Blood - Negative Bedside Urine pH 6.5 Bedside Urine Protein - Negative Bedside Urine Urobilinogen - Negative Bedside Urine Nitrite - Negative Bedside Urine Leukocytes - Negative Esterase ECG Data Attestation: I personally reviewed and interpreted this ECG as follows: Prior ECG tracings: available for review Interpretation: EKG shows sinus rhythm with inverted flipped T-waves in 1 and aVL, patient has some elevation in 3 but not appreciated in AVF or lead 2 patient has some hyperacute T-waves in V2 through V4. These changes do appear new in comparison to prior EKG from 11/13/2019. EKG #2. Junctional rhythm with some premature complexes in a bigeminal pattern. One in aVL have inverted T-waves with hyperacute T-waves in lateral leads which appear similar to prior EKG from 03/12/21. MDM Narrative Medical decision making narrative: This is a 56-year-old female comes with complaint of 2 days of chest pain with a positive troponin EKG changes who had improvement in her chest pain with resolution on heparin. Patient received aspirin, beta-valentin as well statin. Patient had somewhat labile blood pressures which were improved and more normotensive. Repeat troponin has significantly climbed to 4 from 0.688 with no dynamic EKG changes but does have an abnormal EKG as noted above and case was discussed with Cardiology. <Keira Johnson, - Last Filed: 03/13/21 18:13> Lab Data Labs: Lab Results 03/12/21 03/12/21 03/12/21 Range/Units 16:25 16:25 17:18 WBC 8.3 (4.5-11.0) X10^3/uL RBC 3.55 L (4.0-5.2) X10^6/uL Hgb 10.7 L (12.0-16.0) g/dL Hct 32.6 L (36-46) % MCV 91.7 (80-100) fL MCH 30.1 (26-34) PG MCHC 32.8 (30-36) % RDW 13.8 (11.6-14.8) % Plt Count 215 (150-400) X10^3/uL Neut % (Auto) 66.3 (50-75) % Lymph % (Auto) 24.3 L (25-40) % [place] % (Auto) 3.9 (3-14) % Eos % (Auto) 4.4 H (2-4) % Baso % (Auto) 1.1 (0-2) % Neut # (Auto) 5500 (1639-8162) /uL Lymph # (Auto) 2000 (6557-0181) /uL [place] # (Auto) 300 (0-900) /uL Eos # (Auto) 400 (0-450) /uL Baso # (Auto) 100 (0-100) /uL PT 11.6 (10.1-12.7) SECONDS INR 1.0 (0.9-1.3) APTT 35 (26.4-36.2) SECONDS D-Dimer 272 H (<230) ng/mL Sodium 137 (137-145) mmol/L Potassium 4.5 (3.4-5.1) mmol/L Chloride 109 H (98-107) mmol/L Carbon Dioxide 21 L (22-32) mmol/L BUN 28 H (7-17) mg/dL Creatinine 1.30 H (0.52-1.04) mg/dL Estimated GFR 42.1 L (>60) mL/min BUN/Creatinine Ratio 21.5 (6-22) Glucose 239 H (70-100) mg/dL Calcium 8.6 (8.4-10.2) mg/dL Total Bilirubin 0.4 (0.2-1.3) mg/dL AST 37 H (14-36) IU/L ALT 21 (<35) IU/L Alkaline Phosphatase 244 H (38-126) U/L Total Creatine Kinase 83 (30-135) U/L CK-MB (CK-2) TNP CK-MB (CK-2) Rel Index TNP Troponin I 0.605 H* (0.01-0.034) ng/mL NT-Pro-B Natriuret Pep (<125) pg/mL Total Protein 6.8 (6.3-8.2) g/dL Albumin 3.5 (3.5-5.0) g/dL Globulin 3.3 (1.7-4.1) g/dL Albumin/Globulin Ratio 1.1 (1.0-2.8) Lipase 141 (23-300) U/L SARS-CoV-2 (PCR) (Negative) 03/12/21 03/12/21 03/12/21 Range/Units 18:00 19:00 23:20 WBC (4.5-11.0) X10^3/uL RBC (4.0-5.2) X10^6/uL Hgb (12.0-16.0) g/dL Hct (36-46) % MCV (80-100) fL MCH (26-34) PG MCHC (30-36) % RDW (11.6-14.8) % Plt Count (150-400) X10^3/uL Neut % (Auto) (50-75) % Lymph % (Auto) (25-40) % [place] % (Auto) (3-14) % Eos % (Auto) (2-4) % Baso % (Auto) (0-2) % Neut # (Auto) (6846-3711) /uL Lymph # (Auto) (0977-7884) /uL [place] # (Auto) (0-900) /uL Eos # (Auto) (0-450) /uL Baso # (Auto) (0-100) /uL PT (10.1-12.7) SECONDS INR (0.9-1.3) APTT > 400 H* D (26.4-36.2) SECONDS D-Dimer (<230) ng/mL Sodium (137-145) mmol/L Potassium (3.4-5.1) mmol/L Chloride (98-107) mmol/L Carbon Dioxide (22-32) mmol/L BUN (7-17) mg/dL Creatinine (0.52-1.04) mg/dL Estimated GFR (>60) mL/min BUN/Creatinine Ratio (6-22) Glucose (70-100) mg/dL Calcium (8.4-10.2) mg/dL Total Bilirubin (0.2-1.3) mg/dL AST (14-36) IU/L ALT (<35) IU/L Alkaline Phosphatase (38-126) U/L Total Creatine Kinase (30-135) U/L CK-MB (CK-2) CK-MB (CK-2) Rel Index Troponin I 0.688 H* (0.01-0.034) ng/mL NT-Pro-B Natriuret Pep (<125) pg/mL Total Protein (6.3-8.2) g/dL Albumin (3.5-5.0) g/dL Globulin (1.7-4.1) g/dL Albumin/Globulin Ratio (1.0-2.8) Lipase (23-300) U/L SARS-CoV-2 (PCR) Negative (Negative) 03/13/21 03/13/21 03/13/21 Range/Units 05:21 05:21 05:21 WBC 10.2 (4.5-11.0) X10^3/uL RBC 3.41 L (4.0-5.2) X10^6/uL Hgb 10.1 L (12.0-16.0) g/dL Hct 31.1 L (36-46) % MCV 91.1 (80-100) fL MCH 29.7 (26-34) PG MCHC 32.6 (30-36) % RDW 13.9 (11.6-14.8) % Plt Count 189 (150-400) X10^3/uL Neut % (Auto) 58.2 (50-75) % Lymph % (Auto) 30.9 (25-40) % [place] % (Auto) 6.7 (3-14) % Eos % (Auto) 3.3 (2-4) % Baso % (Auto) 0.9 (0-2) % Neut # (Auto) 6000 (7823-2034) /uL Lymph # (Auto) 3200 (4399-4233) /uL [place] # (Auto) 700 (0-900) /uL Eos # (Auto) 300 (0-450) /uL Baso # (Auto) 100 (0-100) /uL PT (10.1-12.7) SECONDS INR (0.9-1.3) APTT 77 H* D (26.4-36.2) SECONDS D-Dimer (<230) ng/mL Sodium 138 (137-145) mmol/L Potassium 4.6 (3.4-5.1) mmol/L Chloride 110 H (98-107) mmol/L Carbon Dioxide 24 (22-32) mmol/L BUN 24 H (7-17) mg/dL Creatinine 1.20 H (0.52-1.04) mg/dL Estimated GFR 46.1 L (>60) mL/min BUN/Creatinine Ratio 20.0 (6-22) Glucose 128 H D (70-100) mg/dL Calcium 8.6 (8.4-10.2) mg/dL Total Bilirubin (0.2-1.3) mg/dL AST (14-36) IU/L ALT (<35) IU/L Alkaline Phosphatase (38-126) U/L Total Creatine Kinase (30-135) U/L CK-MB (CK-2) CK-MB (CK-2) Rel Index Troponin I 4.340 H* (0.01-0.034) ng/mL NT-Pro-B Natriuret Pep (<125) pg/mL Total Protein (6.3-8.2) g/dL Albumin (3.5-5.0) g/dL Globulin (1.7-4.1) g/dL Albumin/Globulin Ratio (1.0-2.8) Lipase (23-300) U/L SARS-CoV-2 (PCR) (Negative) 03/13/21 03/13/21 03/13/21 Range/Units 05:21 11:30 11:30 WBC (4.5-11.0) X10^3/uL RBC (4.0-5.2) X10^6/uL Hgb (12.0-16.0) g/dL Hct (36-46) % MCV (80-100) fL MCH (26-34) PG MCHC (30-36) % RDW (11.6-14.8) % Plt Count (150-400) X10^3/uL Neut % (Auto) (50-75) % Lymph % (Auto) (25-40) % [place] % (Auto) (3-14) % Eos % (Auto) (2-4) % Baso % (Auto) (0-2) % Neut # (Auto) (8255-9659) /uL Lymph # (Auto) (1441-3983) /uL [place] # (Auto) (0-900) /uL Eos # (Auto) (0-450) /uL Baso # (Auto) (0-100) /uL PT (10.1-12.7) SECONDS INR (0.9-1.3) APTT 50 H D (26.4-36.2) SECONDS D-Dimer (<230) ng/mL Sodium (137-145) mmol/L Potassium (3.4-5.1) mmol/L Chloride (98-107) mmol/L Carbon Dioxide (22-32) mmol/L BUN (7-17) mg/dL Creatinine (0.52-1.04) mg/dL Estimated GFR (>60) mL/min BUN/Creatinine Ratio (6-22) Glucose (70-100) mg/dL Calcium (8.4-10.2) mg/dL Total Bilirubin (0.2-1.3) mg/dL AST (14-36) IU/L ALT (<35) IU/L Alkaline Phosphatase (38-126) U/L Total Creatine Kinase (30-135) U/L CK-MB (CK-2) CK-MB (CK-2) Rel Index Troponin I 3.650 H* (0.01-0.034) ng/mL NT-Pro-B Natriuret Pep 5880 H (<125) pg/mL Total Protein (6.3-8.2) g/dL Albumin (3.5-5.0) g/dL Globulin (1.7-4.1) g/dL Albumin/Globulin Ratio (1.0-2.8) Lipase (23-300) U/L SARS-CoV-2 (PCR) (Negative) Point of Care Testing Glucose POC 132 Urine Dip Bedside Urine Glucose Negative Bedside Urine Bilirubin - Negative Bedside Urine Ketone - Negative Urine Specific [place] 1.015 Bedside Urine Occult Blood - Negative Bedside Urine pH 6.5 Bedside Urine Protein - Negative Bedside Urine Urobilinogen - Negative Bedside Urine Nitrite - Negative Bedside Urine Leukocytes - Negative Esterase Imaging Data Chest x-ray: Radiologist's Impression: PROCEDURE: XR CHEST 1V INDICATIONS: chest pain TECHNIQUE: One view of the chest was acquired. COMPARISON: [facility], CT, CT CHEST WITH CONTRAST, 12/06/2018, 10:58. [facility], CR, XR CHEST 2V, 03/19/2020, 12:52. FINDINGS: Surgical changes and devices: Cholecystectomy clips are seen. Lungs and pleura: An incomplete inspiratory result is noted, causing a crowded appearance to the lung markings. No focal infiltrates are seen. No pneumothorax or significant pleural effusions are seen. Mediastinum: Mediastinal contours appear normal. Heart size is normal. Bones and chest wall: No suspicious bony lesions. Kigl-zm-npimbmli dextroconvex scoliosis is seen. Age-appropriate bony degenerative changes are seen. Overlying soft tissues appear unremarkable. IMPRESSION: Limited portable chest examination, without a significant cardiopulmonary abnormality identified. Dictated by: Alessandro Najera M.D. on 03/12/2021 at 15:50 Approved by: Alessandro Najera M.D. on 03/12/2021 at 15:[address] [facility] Narrative Medical decision making narrative: DAVID: This is a 56-year-old female comes with complaint of 2 days of chest pain with a positive troponin EKG changes who had improvement in her chest pain with resolution on heparin. Patient received aspirin, beta-valentin as well statin. Patient had somewhat labile blood pressures which were improved and more normotensive. Repeat troponin has significantly climbed to 4 from 0.688 with no dynamic EKG changes but does have an abnormal EKG as noted above and case was discussed with Cardiology. 03/13/21- DAVID Patient signed out to me by Dr. Jean I have seen and evaluated health. She has had chest pain on the right side which she describes as squeezing for the last 2 days. Initially she was started on heparin drip when she arrived in resolved her chest pain. She has had labile chest pressures while in the emergency department it initially was low and then started rising requiring medications which then dropped into the 80s and 90s. Now it seems to be more stable at 119/80. Patient started having chest pain again. I seen evaluated her. Repeat EKG shows persistent ST depression in lateral leads with no ST elevation. Troponin done 1 hour ago has risen to 4.3. Dr. Jean has already spoken with Dr. Mcgee. I have re-touched base with Dr. Mcgee and discussed with her now that she is having chest discomfort. Agrees with and nitroglycerin, blood pressure is now 141/58, should be able to handle nitroglycerin. [id number]- Dr. Woodard, cardiology at [facility] updated on patient's symptoms test results states can go to hospitalist, expect to have beds in the next 4 hours at [place] [address] Howard, hospitalist at [facility] accepts patient. Patient's chest pain seems to have resolved. She is becoming a bit anxious. Blood pressure remains more stable she did receive her 1:00 p.m. dose of Catapres. <Keira Johnson, DO - Last Filed: 03/13/21 18:13> Critical Care Time Critical Care Time: Yes Total Critical Care Time: 45 Attestation: The high probability of a clinically significant, sudden or life threatening deterioration of the [cardiovascular] system(s) required my full and direct attention, intervention and personal management. The aggregate critical care time was [45] minutes. This time is in addition to time spent performing reported procedures but includes the following: [x] Data Review and interpretation [x] Patient assessment and monitoring of vital signs [x] Documentation [x] Medication orders and management Discharge Plan Departure Patient Disposition: er [facility] Clinical Impression: Myocardial infarction Prescriptions: No Action prenat.vits,jeremy,ncy-viyf-itxds tablet 1 tab PO DAILY RF: 0 quetiapine 50 mg tablet 50 mg PO BEDTIME Qty: 90 RF: 1 ketoconazole 2 % cream 1 nathan Topical BID Qty: 30 RF: 0 dicyclomine 10 MG capsule 10 mg PO QIDP PRN (Reason: Inflammation) Qty: 0 RF: 0 Restasis 1 EACH dropperette 1 drp OPHTH BID Qty: 0 RF: 0 insulin glargine [Lantus Solostar U-100 Insulin] 100 unit/mL (3 mL) insulin pen 30 unit SUBCUT HS Qty: 1 RF: 3 insulin lispro [Humalog KwikPen Insulin] 100 unit/mL insulin pen 10 - 15 unit SUBCUT ACHS Qty: 1 RF: 3 epinephrine 0.3 mg/0.3 mL auto-injector 0.3 mg IM PRN PRN (Reason: Anaphylaxis) Qty: 1 RF: 0 naproxen [Naprosyn] 500 mg tablet 500 mg PO BID PRN (Reason: pain) Qty: 180 RF: 1 Flovent HFA 110 mcg/actuation HFA aerosol inhaler 2 puff inhalation BID Qty: 1 RF: 11 Hold Instructions: Change to budesonide neb Ventolin HFA 90 mcg/actuation HFA aerosol inhaler 1 puff inhalation Q6H PRN (Reason: shortness of breath or wheezing) Qty: 18 RF: 11 albuterol sulfate 2.5 mg /3 mL (0.083 %) solution for nebulization 2.5 mg INHALATION Q6H PRN (Reason: shortness of breath or wheezing) Qty: 90 RF: 11 ondansetron 4 mg tablet,disintegrating 4 mg Sublingual Q6HP PRN (Reason: nausea and vomiting) Qty: 120 RF: 2 vortioxetine 20 mg tablet 20 mg PO DAILY 90 Days Qty: 90 RF: 1 dextroamphetamine-amphetamine 10 mg capsule,extended release 24hr 10 mg PO QAM Qty: 30 RF: 0 dextroamphetamine-amphetamine 10 mg capsule,extended release 24hr 10 mg PO QAM Qty: 30 RF: 0 dextroamphetamine-amphetamine 10 mg capsule,extended release 24hr 10 mg PO QAM Qty: 30 RF: 0 tizanidine 4 mg tablet 4 mg PO Q8H PRN (Reason: muscle spasticity) Qty: 120 RF: 3 pantoprazole [Protonix] 40 mg tablet,delayed release (DR/EC) 80 mg PO QAM Qty: 90 RF: 1 nystatin-triamcinolone 100,000-0.1 unit/gram-% ointment See Rx Instructions TOP BID Qty: 30 RF: 0 CMP Testosterone 0.2% See Rx Instructions .ROUTE .COMPLEX Qty: 30 RF: 3 estradiol 0.01 % (0.1 mg/gram) cream See Rx Instructions VAG DAILY Qty: 42.5 RF: 3 estradiol 0.5 mg tablet 0.5 mg PO DAILY Qty: 30 RF: 3 budesonide 0.5 mg/2 mL suspension for nebulization 0.5 mg inhalation BID Qty: 360 RF: 3 propranolol 20 mg tablet 20 mg PO TID PRN (Reason: anxiety) Qty: 10 RF: 11 ipratropium bromide 0.02 % solution 2.5 ml inhalation DAILY PRN (Reason: shortness of breath or wheezing) Qty: 75 RF: 11 (DME) FreeStyle Mckenna 14 Day Sensor Kit See Rx Instructions .Route Qty: 2 RF: 3 Glucagon Emergency Kit (human) 1 mg Recon Soln 1 mg SUBCUT Q20M PRN (Reason: Hypoglycemia) RF: 0 Referrals: Ben Winchester MD [Primary Care Provider] -
[2021-03-12 16:58] LABS: Troponin I 0.605 ng/mL (0.01-0.034)
--- NOTE | 2021-03-12 17:10 | DI.CT.S_ITS ---
PROCEDURE: CT ANGIO CHEST PE PROTOCOL INDICATIONS: CP, short of breath, radiates to back TECHNIQUE: After the administration of intravenous contrast, 2 mm thick sections acquired from the pulmonary apices to the posterior costophrenic angles. 3-dimensional maximum intensity projection (MIP) coronal and sagittal reformats were then acquired through the thorax. For radiation dose reduction, the following was used: automated exposure control, adjustment of mA and/or kV according to patient size. COMPARISON: [facility], CR, XR CHEST 1V, 03/12/2021, 16:31. [facility], CT, CT CHEST WITH CONTRAST, 12/06/2018, 10:58. FINDINGS: Image quality: Excellent. Pulmonary arteries: Pulmonary arteries are normal in size, and demonstrate no intraluminal filling defects to suggest central pulmonary embolism. Lungs and pleura: Patchy areas of ground-glass opacity can be seen within the lungs, which are more prominent peripherally and inferiorly and slightly worse on the right than on the left. No pleural effusions or pneumothorax. Central and peripheral airways are patent. Mediastinum: Heart size is normal, without pericardial effusion. No mediastinal or hilar adenopathy. Thoracic aorta is normal in caliber and enhancement. Esophagus is normal in caliber. There is a small to moderate hiatal hernia. Bones and chest wall: No suspicious bony lesions. Ribs and thoracic spine appear intact throughout. There is moderate dextroconvex scoliosis. Age-appropriate bony degenerative changes are seen. Thyroid gland demonstrates no significant abnormality. No axillary or supraclavicular adenopathy. Abdomen: Cholecystectomy clips are seen. The liver demonstrates a nodular contour. The visualized portions of the upper abdominal structures are otherwise unremarkable for imaging technique. IMPRESSION: Patchy areas of ground-glass opacity can be seen. Please consider pulmonary edema versus atypical infiltrate, including COVID pneumonia. Incidental note is made of: Cholecystectomy Liver cirrhosis suspected Dictated by: Alessandro Najera M.D. on 03/12/2021 at 16:38 Approved by: Alessandro Najera M.D. on 03/12/2021 at 16:41
[2021-03-12] MEDS: SODIUM CHLORIDE 0.9% 1,000 ML 1000 ML IV (17:13)
[2021-03-12] MEDS: HEPARIN 5,000 UNIT/ML VIAL 4000 UNIT IV (17:14)
[2021-03-12] MEDS: HEPARIN DRIP 25,000 UNIT/500 ML IV.SOLN 11.757 UNIT IV (17:14)
[2021-03-12 17:30] LABS: D Dimer 272 ng/mL (<230); PTT Partial Thromboplastin Tim 35 SECONDS (26.4-36.2)
[2021-03-12 18:45] LABS: COVID19 - ADMIT (NP swab/PCR) Negative (Negative)
[2021-03-12] MEDS: ASPIRIN 81 MG CHEW TAB 324 MG PO (18:55)
[2021-03-12] MEDS: ATORVASTATIN 20 MG TABLET 40 MG PO (19:09)
[2021-03-12] MEDS: METOPROLOL TARTRATE 5 MG/5 ML INJ IV ×2 (19:09→19:29)
[2021-03-12 19:34] LABS: Troponin I 0.688 ng/mL (0.01-0.034)
[2021-03-12 21:03] LABS: Prothrombin Time 11.6 SECONDS (10.1-12.7)
[2021-03-12] MEDS: METOPROLOL IR 25 MG TABLET 50 MG PO (21:55)
--- NOTE | 2021-03-12 22:37 | PC.NURSE ---
Pt took half of home SL suboxone 8mg/2mg strip okayed by Dr. Jean
[2021-03-12] MEDS: INSULIN GLARGINE 100 UNIT/ML 3ML PEN SUBCUT (22:47)
[2021-03-13] VITALS (53 sets, daily range): BP systolic 83–200; BP diastolic 44–96; PULSE 51–92; RESP 10–32; TEMP 36.8; O2SAT 92–98
[2021-03-13 00:13] LABS: PTT Partial Thromboplastin Tim > 400 SECONDS (26.4-36.2)
[2021-03-13] MEDS: NITROGLYCERIN OINT 1 INCH/GM OINT...G. 0.5 INCH TOP (01:04)
[2021-03-13] MEDS: cloNIDine 0.1 MG TABLET 0.2 MG PO (01:28)
[2021-03-13] MEDS: LABETALOL 20 MG/4 ML SYRINGE 10 MG IV (02:22)
--- NOTE | 2021-03-13 03:37 | PC.NURSE ---
Pt BP dipped to 89/48, Nitro paste that was previously applied has now been removed.
[2021-03-13 05:29] LABS: Add Manual Diff / Slide Review NO; Basophils Absolute Auto 100 /uL (0-100); Basophils Percent Auto 0.9 % (0-2); Eosinophils Absolute Auto 300 /uL (0-450); Eosinophils Percent Auto 3.3 % (2-4); Hematocrit 31.1 % (36-46); Hemoglobin 10.1 g/dL (12.0-16.0); Lymphocytes Absolute Auto 3200 /uL (1100-4500); Lymphocytes Percent Auto 30.9 % (25-40); Mean Corpuscular HGB Conc 32.6 % (30-36); Mean Corpuscular Hemoglobin 29.7 PG (26-34); Mean Corpuscular Volume 91.1 fL (80-100); Monocytes Absolute Auto 700 /uL (0-900); Monocytes Percent Auto 6.7 % (3-14); Neutrophils Absolute Auto 6000 /uL (1500-7000); Neutrophils Percent Auto 58.2 % (50-75); Platelet Count 189 X10^3/uL (150-400); Red Blood Cell Count 3.41 X10^6/uL (4.0-5.2); Red Cell Distribution Width 13.9 % (11.6-14.8); White Blood Cell Count 10.2 X10^3/uL (4.5-11.0)
[2021-03-13 05:38] LABS: PTT Partial Thromboplastin Tim 77 SECONDS (26.4-36.2)
[2021-03-13 05:39] LABS: Blood Urea Nitrogen 24 mg/dL (7-17); Calcium 8.6 mg/dL (8.4-10.2); Carbon Dioxide 24 mmol/L (22-32); Chloride 110 mmol/L (98-107); Estimated Glomerular Filt Rate 46.1 mL/min (>60); Glucose 128 mg/dL (70-100); HEMOLYSIS < 15 (0-50); Potassium 4.6 mmol/L (3.4-5.1); Sodium 138 mmol/L (137-145)
[2021-03-13] MEDS: SODIUM CHLORIDE 0.9% 1,000 ML 500 ML IV (06:45)
--- NOTE | 2021-03-13 07:25 | PC.NURSE ---
pt reports 10/13 chest pressure/discomfort MD notified and orders recieved
[2021-03-13] MEDS: NITROGLYCERIN 0.4 MG SL TAB SL (07:38)
[2021-03-13 07:39] LABS: NT-proBNP (BNP-Adult 18+) 5880 pg/mL (<125)
[2021-03-13] MEDS: PANTOPRAZOLE 40 MG VIAL IV (08:35)
[2021-03-13] MEDS: ATORVASTATIN 20 MG TABLET 40 MG PO (09:06)
[2021-03-13] MEDS: ASPIRIN 81 MG CHEW TAB 324 MG PO (09:06)
[2021-03-13 12:04] LABS: PTT Partial Thromboplastin Tim 50 SECONDS (26.4-36.2)
[2021-03-13] MEDS: cloNIDine 0.1 MG TABLET PO (12:36)
[2021-03-13] MEDS: LORazepam 2 MG/ML INJ 0.5 MG IV (14:40)
== END 2021-03-13 15:33 | disposition short-term general hospital (02) ==
PROVIDERS: Emergency Medicine; Emergency Provider Emergency Medicine; PCP Student in an Organized Health Care Education/Training Program
DX: I21.9 Acute myocardial infarction, unspecified (principal); R06.02 Shortness of breath; R79.89 Other specified abnormal findings of blood chemistry; Z20.822 Contact with and (suspected) exposure to COVID-19
CPT/HCPCS: 36415; 71045; 71275; 80048; 80053; 81003; 82550; 82962; 83690; 83880; 84484; 85025; 85379; 85610; 85730; 87635; 93005; 96365; 96366; 96372; 96375; 99285; 99291; C9803; C9113; J1644; J1815; J2060; Q9967

== ENCOUNTER → 2021-05-02 16:48 | Outpatient (CLI) | payer OTHER, MEDICAID, SELFPAY ==
[2020-06-17 11:11] VITALS: BMI 26.6
[2021-05-02 18:22] LABS: Add Manual Diff / Slide Review NO; Basophils Absolute Auto 0 /uL (0-100); Basophils Percent Auto 0.6 % (0-2); Eosinophils Absolute Auto 400 /uL (0-450); Hematocrit 32.7 % (36-46); Hemoglobin 10.8 g/dL (12.0-16.0); Lymphocytes Absolute Auto 2600 /uL (1100-4500); Lymphocytes Percent Auto 34.2 % (25-40); Mean Corpuscular HGB Conc 32.9 % (30-36); Mean Corpuscular Hemoglobin 29.9 PG (26-34); Mean Corpuscular Volume 91.1 fL (80-100); Monocytes Absolute Auto 400 /uL (0-900); Monocytes Percent Auto 4.5 % (3-14); Neutrophils Absolute Auto 4300 /uL (1500-7000); Neutrophils Percent Auto 55.7 % (50-75); Platelet Count 184 X10^3/uL (150-400); Red Cell Distribution Width 13.3 % (11.6-14.8); White Blood Cell Count 7.7 X10^3/uL (4.5-11.0)
[2021-05-02 18:23] LABS: Alanine Aminotransferase 21 IU/L (<35); Albumin 3.8 g/dL (3.5-5.0); Albumin Globulin Ratio 1.2 (1.0-2.8); Alkaline Phosphatase 258 U/L (38-126); Aspartate Aminotransferase 29 IU/L (14-36); BUN Creatinine Ratio 17.4 (6-22); Bilirubin Total 0.3 mg/dL (0.2-1.3); Bilirubin Unconjugated 0.2 mg/dL (0.0-1.1); Blood Urea Nitrogen 21 mg/dL (7-17); Calcium 8.8 mg/dL (8.4-10.2); Carbon Dioxide 34 mmol/L (22-32); Chloride 101 mmol/L (98-107); Estimated Glomerular Filt Rate 45.7 mL/min (>60); Globulin 3.3 g/dL (1.7-4.1); Glucose 261 mg/dL (70-100); HEMOLYSIS < 15 (0-50); Potassium 4.3 mmol/L (3.4-5.1); Sodium 138 mmol/L (137-145); Total Protein 7.1 g/dL (6.3-8.2)
[2021-05-02 18:37] LABS: Free T4, Direct Thyroxine 1.08 ng/dL (0.78-2.19)
[2021-05-02 18:51] LABS: Thyroid Stimulating Hormone 0.339 uIU/mL (0.47-4.68)
[2021-05-02 18:54] LABS: Hepatitis B Surface Antigen NEGATIVE s/c (NEGATIVE)
[2021-05-02 19:07] LABS: HIV 1 & 2 Ab/Ag 4th Gen Combo NEGATIVE (NEGATIVE); Hep C Virus Ab w/Reflex Quant NEGATIVE s/c (NEGATIVE)
[2021-05-03 04:42] LABS: Hepatitis A Antibody Total Negative (Negative)
[2021-05-03 08:13] LABS: Hepatitis A Antibody IgM Negative (Negative); Hepatitis B Core Antibody Negative (Negative); RPR Screen Non Reactive (Non Reactive)
[2021-05-03 10:29] LABS: Hepatitis B Core IgM Negative (Negative)
== END ==
PROVIDERS: PCP Student in an Organized Health Care Education/Training Program; Referring Provider Nurse Practitioner Occupational Health; Visit Provider Nurse Practitioner Occupational Health
DX: F11.20 Opioid dependence, uncomplicated (principal)
CPT/HCPCS: 36415; 80048; 80076; 84439; 84443; 85025; 86592; 86704; 86705; 86708; 86709; 86803; 87340; 87389

== ENCOUNTER 2021-06-14 16:47 | Emergency (ER) | payer OTHER, MEDICAID, SELFPAY ==
[2020-06-17 11:11] VITALS: BMI 26.6
[2021-06-14] VITALS (22 sets, daily range): BP systolic 169–242; BP diastolic 75–108; PULSE 73–91; RESP 13–33; TEMP 36.9; O2SAT 98–100
--- NOTE | 2021-06-14 16:52 | DI.RAD.S_ITS ---
PROCEDURE: XR CHEST 1V INDICATIONS: chest pain TECHNIQUE: One view of the chest was acquired. COMPARISON: [facility], CR, XR CHEST 1V, 03/12/2021, 16:31. FINDINGS: Surgical changes and devices: None. Lungs and pleura: Lungs are clear. No pleural effusions or pneumothorax. Mediastinum: Mediastinal contours appear normal. Heart size is normal. Bones and chest wall: No suspicious bony lesions. Overlying soft tissues appear unremarkable. IMPRESSION: 1. No acute cardiopulmonary disease. Dictated by: Tobias Templeton M.D. on 06/14/2021 at 17:40 Approved by: Tobias Templeton M.D. on 06/14/2021 at 17:41
--- NOTE | 2021-06-14 17:01 | ED.CHESTPAIN ---
HPI - Chest Pain General Chief Complaint: Chest Pain Stated Complaint: chest pressure, HBP 206/120 Time Seen by Provider: 06/14/21 16:56 Source: patient Mode of arrival: Ambulatory History of Present Illness HPI narrative: The patient has slight substernal chest discomfort, symptoms started yesterday. She has never had severe discomfort. She denies palpitations or dyspnea. She has a history of hypertension, coronary artery disease with a stent in place, type 2 diabetes and asthma. She had a mild headache history. She has slight visual discomfort/changes. Her eyes are not bother her today. With the diabetes, she also has gastroparesis. She had vomiting this morning. She has no nausea vomiting now. She has had normal oral intake later the day. She has normal urine output. She denies sore throat, changes in taste or smell, or dyspnea. Related Data Home Medications Medication Instructions Recorded Confirmed dicyclomine 10 mg capsule 10 mg PO QIDP PRN #0 10/05/17 06/07/21 cyclosporine 0.05 % eye drops in a 1 drp OPHTH BID #0 11/09/17 06/07/21 dropperette (Restasis) prenat.vits,jeremy,mnx-tyvm-moxbt 1 tab PO DAILY 01/18/18 06/07/21 glucagon (human recombinant) 1 mg 1 mg SUBCUT Q20M PRN 10/06/18 06/07/21 solution for injection (Glucagon Emergency Kit) aspirin 81 mg tablet,delayed 81 mg PO DAILY 03/21/21 06/07/21 release atorvastatin 40 mg tablet 40 mg PO DAILY 03/21/21 06/07/21 clopidogrel 75 mg tablet 75 mg PO DAILY 03/21/21 06/07/21 metoprolol tartrate 25 mg tablet 12.5 mg PO BID 03/21/21 06/07/21 nitroglycerin 0.4 mg sublingual 0.4 mg SUBLINGUAL Q5-15M PRN 03/21/21 06/07/21 tablet lisinopril 10 mg tablet 10 mg PO DAILY 05/25/21 06/07/21 buprenorphine 8 mg-naloxone 2 mg 1 film BUCCAL DAILY 06/07/21 06/07/21 sublingual film (Suboxone) Previous Rx's Medication Instructions Recorded ketoconazole 2 % topical cream 1 nathan TOPICAL BID #30 gm 02/06/18 insulin glargine 100 unit/mL (3 30 unit SUBCUT HS #1 ml 05/31/18 mL) subcutaneous pen (Lantus Solostar U-100 Insulin) insulin lispro 100 unit/mL 10 - 15 unit SUBCUT ACHS #1 syr 05/31/18 subcutaneous pen (Humalog KwikPen (U-100) Insulin) nystatin-triamcinolone 100,000 See Rx Instructions TOP BID #30 09/24/18 unit/gram-0.1 % topical ointment gram estradiol See Rx Instructions VAG DAILY 09/25/18 #42.5 gram estradiol 0.5 mg tablet 0.5 mg PO DAILY #30 tab 11/14/18 fluticasone propionate 110 2 puff INHALATION BID #1 inh 10/22/19 mcg/actuation HFA aerosol inhaler (Flovent HFA) albuterol sulfate 2.5 mg INHALATION Q6H PRN #90 ml 03/12/20 albuterol sulfate 90 mcg/actuation 1 puff INHALATION Q6H PRN #18 gram 03/12/20 aerosol inhaler (Ventolin HFA) budesonide 0.5 mg/2 mL suspension 0.5 mg INHALATION BID #360 ml 07/16/20 for nebulization ipratropium bromide 0.02 % 2.5 ml INHALATION DAILY PRN #75 ml 07/16/20 solution for inhalation ondansetron 4 mg disintegrating 4 mg SUBLINGUAL Q6HP PRN #120 tab 12/06/20 tablet tizanidine 4 mg tablet 4 mg PO Q8H PRN #120 tab 01/26/21 flash glucose sensor (FreeStyle #2 ea 02/01/21 Mckenna 14 Day Sensor) epinephrine 0.3 mg/0.3 mL 0.3 mg IM PRN PRN #1 each 03/21/21 injection, auto-injector quetiapine 50 mg tablet 50 mg PO BEDTIME #90 tab 03/31/21 pantoprazole 40 mg tablet,delayed 80 mg PO QAM #90 tab 05/02/21 release (Protonix) vortioxetine 20 mg tablet 20 mg PO DAILY 90 Days #90 tab 05/30/21 dextroamphetamine-amphetamine ER 10 mg PO QAM #30 cap 05/31/21 10 mg 24hr capsule,extend release dextroamphetamine-amphetamine ER 5 5 mg PO QAM #30 cap 06/07/21 mg 24hr capsule,extend release DISABLED PARKING PERMIT #1 ea 06/08/21 Allergies Allergy/AdvReac Type Severity Reaction Status Date / Time luciano Allergy Severe Anaphylaxis Verified 06/14/21 17:22 lidocaine Allergy Severe sanchez - Verified 06/07/21 11:04 rash venom-honey bee Allergy Severe SWOLLEN Verified 06/07/21 11:04 [bee venom (honey bee)] TONGUE AND THROAT BUT NOT ANAPHALAXIS pregabalin [From LYRICA] Allergy Intermediate 'WELTS ON Verified 06/07/21 11:04 MY BODY' cyclobenzaprine Allergy Unknown Verified 06/07/21 11:04 [From FLEXERIL] gabapentin Allergy Unknown MY Verified 06/07/21 11:04 THOUGHT IT MADE ME ACT WERID hydroxyzine AdvReac Unknown PT STATES Verified 06/07/21 11:04 EYES DRIES ME UP venlafaxine AdvReac Unknown MADE MY Verified 06/07/21 11:04 BLOOD PRESSURE HIGH trazodone AdvReac heart Verified 06/07/21 11:04 palpatations fake sugar Allergy Unknown blotchy Uncoded 06/07/21 11:04 LACTOSE INTOLERANT AdvReac Unknown Uncoded 06/07/21 11:04 Review of Systems Constitutional Constitutional: Reports as per HPI, Denies anorexia, Denies body ache(s), Denies chills, Denies fatigue, Denies fever(s) and Reports headache(s) Eyes Eyes: Denies blurry vision, Reports change in vision and Denies eye discharge ENT Ears, Nose, Mouth, and Throat: Denies vertigo, Denies dizziness, Reports headache(s), Denies sinus pressure and Denies sore throat Cardiovascular Cardiovascular: Reports as per HPI, Reports chest pain, Denies syncope, Denies rapid heart rate, Denies pedal edema and Denies dyspnea Respiratory Respiratory: Denies chest congestion, Denies cough and Denies dyspnea Gastrointestinal Gastrointestinal: Reports as per HPI, Reports abdominal pain, Denies constipation, Reports nausea and Reports vomiting Genitourinary Genitourinary: Denies dysuria Musculoskeletal Musculoskeletal: Denies joint swelling Integumentary/Breasts Skin/Breast: Denies rash and Denies skin swelling Neurologic Neurologic: Denies confusion, Denies vertigo, Denies dizziness, Denies syncope and Reports headache(s) Psychiatric Psychiatric: Denies confusion and Denies depression Endocrine Endocrine: Denies fatigue Hematologic/Lymphatic On Anticoagulants: No Patient History Medical History ADHD (attention deficit hyperactivity disorder) Anxiety Back pain Cataract Central sleep apnea Cervical cancer (1991) Chicken pox Chronic cough Chronic headaches COPD (chronic obstructive pulmonary disease) 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) Diabetes mellitus (2003) Esophageal stricture (09/2017) Fibromyalgia (06/24/15) Generalized anxiety disorder GERD (gastroesophageal reflux disease) (1980) History of blood transfusion (~07/1981) Hyperlipidemia (1991) Hypertension (1991) Hypertensive urgency Influenza B Insomnia Kidney stones Lumbar spine pain Major depressive disorder, recurrent, moderate Menopausal symptoms Obstructive sleep apnea Pancreatitis (2010) Post-traumatic stress disorder, chronic Right fibular fracture Sarcoidosis Scoliosis Shoulder pain Spinal stenosis 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 (07/22/15) Vaginal atrophy Weakness of both legs Surgical History Anesthesia History of tonsillectomy (1967) S/P dilatation of esophageal stricture (09/2017) Status post cataract extraction Status post delivery (05/02/85) Status post cholecystectomy (02/1985) Status post hysterectomy (1986) Family History Brother Age: 64 Diabetes mellitus Child Age: 40 Asthma Child Heart defect Father Age: 84 Hypertension Cirrhosis of liver Mother Heart disease High cholesterol Amyloidosis Sister Age: 61 Diabetes mellitus Heart disease Sister Heart disease Social History household members: spouse Smoking Status: Former smoker alcohol intake: never Smoking Status: Former smoker alcohol intake frequency: holidays/special occasions only Substance Use Type: painkillers and prescription drug Exam Initial Vital Signs Initial Vital Signs: Vital Signs Temperature 98.4 F 06/14/21 16:50 Pulse Rate 88 06/14/21 16:50 Respiratory Rate 20 06/14/21 16:50 Blood Pressure 229/99 H 06/14/21 16:50 Pulse Oximetry 100 06/14/21 16:50 Const General: cooperative, healthy appearing, comfortable and No diaphoretic HENMT Head: normal to inspection, normocephalic and atraumatic Face and sinus: normal facial exam Mouth: oral mucosae normal Throat: posterior oropharynx normal Eyes Visual Sparks: normal visual sparks by confrontation Conjunctivae: conjunctivae normal Cornea: corneas normal Pupils: PERRL EOM: EOM intact bilaterally Neck Neck: full ROM and No JVD Chest Chest: No tenderness Resp Effort & Inspection: normal respiratory effort Auscultation: clear to auscultation bilaterally Cardio Rate: regular rate Rhythm: regular rhythm Heart Sounds: S1 normal, S2 normal and no murmurs Pulses: radial pulses present GI Inspection: normal to inspection Palpation: soft Auscultation: normal bowel sounds Back/Spine/Pelvis Back: No CVA tenderness Skin General: no rashes or lesions noted Neuro General: patient alert, patient awake, patient oriented x3 and no focal motor deficits Extrem General: normal to inspection, full ROM, no pedal edema and no calf tenderness Psych Mental Status: mental status grossly normal Course Course Course Narrative: The patient's cardiovascular evaluation was reassuring other than the elevated blood pressure. Topical nitroglycerin did little for blood pressure, nor her sternal chest discomfort. EKG and lab data do not indicate a cardiac problem. She was then given labetalol IV for her blood pressure. Her blood pressure improved. I increased her lisinopril dose to 20 mg a day, up from 10 mg daily. Her blood pressure is 172 systolic at the time of discharge. She is asymptomatic. I discussed her elevated glucose, and better control. I discussed her worsening renal insufficiency, and a need to follow-up with the doctor. Orders Ordered: ED Orders 06/14/21 16:52 XR chest 1V Stat EKG-12 Lead Stat 06/14/21 17:00 Complete Blood Count AUTO DIFF Stat Comprehensive Metabolic Panel Stat Lipase Stat Troponin & CK Cardiac Panel Stat 06/14/21 17:29 COVID19 - ADMIT ([employer] swab/PCR) Stat Nitroglycerin (Nitroglycerin 0.4 Mg Sl Tab) 0.4 mg SL [id number] PRN PRN Reason: Chest Pain Discontinued Medications Labetalol HCl (Labetalol 20 Mg/4 Ml Syringe) 10 mg IV NOW ONE Stop: 06/14/21 17:30 Last Admin: 06/14/21 17:55 Dose: 10 mg Documented by: NADIRA Labetalol HCl (Labetalol 20 Mg/4 Ml Syringe) 10 mg IV NOW ONE Stop: 06/14/21 17:45 Lisinopril (Lisinopril 10 Mg Tablet) 10 mg PO NOW ONE Stop: 06/14/21 18:23 Last Admin: 06/14/21 18:46 Dose: 10 mg Documented by: NADIRA Nitroglycerin (Nitroglycerin Oint 1 Inch/Gm Oint...G.) 1 inch TOP NOW ONE Stop: 06/14/21 17:10 Last Admin: 06/14/21 17:13 Dose: 1 inch Documented by: NADIRA Vital Signs Vital signs: Vital Signs - 8 hr 06/14/21 16:50 06/14/21 17:04 06/14/21 17:08 Temperature 98.4 F Pulse Rate 88 91 H 85 Respiratory Rate 20 Blood Pressure 229/99 H 218/91 H Pulse Oximetry 100 100 100 06/14/21 17:13 06/14/21 17:15 06/14/21 17:28 Temperature Pulse Rate 80 81 81 Respiratory Rate 33 H 15 Blood Pressure 218/81 H 242/106 H Pulse Oximetry 100 99 06/14/21 17:30 06/14/21 17:45 06/14/21 17:55 Temperature Pulse Rate 87 81 81 Respiratory Rate 31 H 18 Blood Pressure 240/108 H 216/98 H 216/98 H Pulse Oximetry 100 100 06/14/21 18:00 06/14/21 18:14 06/14/21 18:15 Temperature Pulse Rate 80 75 74 Respiratory Rate 24 17 19 Blood Pressure 198/75 H 172/76 H 178/82 H Pulse Oximetry 100 99 100 06/14/21 18:30 06/14/21 18:45 06/14/21 18:46 Temperature Pulse Rate 76 73 76 Respiratory Rate 21 19 24 Blood Pressure 198/77 H 169/79 H Pulse Oximetry 99 99 99 06/14/21 18:50 06/14/21 19:00 06/14/21 19:15 Temperature Pulse Rate 73 73 75 Respiratory Rate 18 24 Blood Pressure 169/79 H 170/75 H 190/81 H Pulse Oximetry 99 99 06/14/21 19:30 06/14/21 19:45 06/14/21 19:58 Temperature Pulse Rate 77 80 77 Respiratory Rate 15 21 24 Blood Pressure 187/81 H 187/85 H 177/78 H Pulse Oximetry 99 99 98 06/14/21 20:00 Temperature Pulse Rate 78 Respiratory Rate 13 Blood Pressure 172/80 H Pulse Oximetry 99 MDM - Chest Pain Lab Data Result diagrams: 06/14/21 17:00 06/14/21 17:00 Labs: Lab Results 06/14/21 06/14/21 06/14/21 Range/Units 17:00 17:00 17:29 WBC 12.0 H (4.5-11.0) X10^3/uL RBC 4.27 (4.0-5.2) X10^6/uL Hgb 12.5 (12.0-16.0) g/dL Hct 38.4 (36-46) % MCV 89.9 (80-100) fL MCH 29.4 (26-34) PG MCHC 32.7 (30-36) % RDW 13.4 (11.6-14.8) % Plt Count 276 (150-400) X10^3/uL Neut % (Auto) 66.3 (50-75) % Lymph % (Auto) 25.9 (25-40) % [place] % (Auto) 3.7 (3-14) % Eos % (Auto) 3.1 (2-4) % Baso % (Auto) 1.0 (0-2) % Neut # (Auto) 7900 H (7100-6041) /uL Lymph # (Auto) 3100 (0533-3866) /uL [place] # (Auto) 400 (0-900) /uL Eos # (Auto) 400 (0-450) /uL Baso # (Auto) 100 (0-100) /uL Sodium 137 (137-145) mmol/L Potassium 4.2 (3.4-5.1) mmol/L Chloride 98 (98-107) mmol/L Carbon Dioxide 30 (22-32) mmol/L BUN 25 H (7-17) mg/dL Creatinine 1.64 H (0.52-1.04) mg/dL Estimated GFR 32.2 L (>60) mL/min BUN/Creatinine Ratio 15.2 (6-22) Glucose 298 H (70-100) mg/dL Calcium 9.5 (8.4-10.2) mg/dL Total Bilirubin 0.5 (0.2-1.3) mg/dL AST 36 (14-36) IU/L ALT 27 (<35) IU/L Alkaline Phosphatase 337 H (38-126) U/L Total Creatine Kinase 99 (30-135) U/L CK-MB (CK-2) TNP CK-MB (CK-2) Rel Index TNP Troponin I < 0.012 (0.01-0.034) ng/mL Total Protein 9.3 H (6.3-8.2) g/dL Albumin 4.9 (3.5-5.0) g/dL Globulin 4.4 H (1.7-4.1) g/dL Albumin/Globulin Ratio 1.1 (1.0-2.8) Lipase 110 (23-300) U/L SARS-CoV-2 (PCR) Negative (Negative) Imaging Data Chest x-ray: Radiologist's Impression: No acute cardiopulmonary process. ECG Data Attestation: I personally reviewed and interpreted this ECG as follows: (Normal sinus rhythm rate 90 beats per minute. Normal intervals. No ectopy. Nonspecific ST T wave changes.) Discharge Plan Departure Patient Disposition: Home Clinical Impression: Type 2 diabetes mellitus with diabetic polyneuropathy, Chronic renal insufficiency Hypertension Qualifiers: Hypertension type: unspecified Qualified Code(s): I10 - Essential (primary) hypertension Instructions: Kidney Failure, Essential Hypertension Activity Restrictions/Additional Instructions: Double your lisinopril does. You should be taking 20 mg daily. Continue all of your other medications at current doses. Follow-up with your doctor to recheck your blood pressure, as well as her diabetes and kidney functions. Return here if symptoms worsen. Prescriptions: No Action prenat.vits,jeremy,uid-isqt-xarap tablet 1 tab PO DAILY RF: 0 quetiapine 50 mg tablet 50 mg PO BEDTIME Qty: 90 RF: 1 dextroamphetamine-amphetamine 5 mg capsule,extended release 24hr 5 mg PO QAM Qty: 30 RF: 0 buprenorphine-naloxone [Suboxone] 8-2 mg film 1 film buccal DAILY RF: 0 ketoconazole 2 % cream 1 nathan Topical BID Qty: 30 RF: 0 dicyclomine 10 MG capsule 10 mg PO QIDP PRN (Reason: Inflammation) Qty: 0 RF: 0 Restasis 1 EACH dropperette 1 drp OPHTH BID Qty: 0 RF: 0 insulin glargine [Lantus Solostar U-100 Insulin] 100 unit/mL (3 mL) insulin pen 30 unit SUBCUT HS Qty: 1 RF: 3 insulin lispro [Humalog KwikPen Insulin] 100 unit/mL insulin pen 10 - 15 unit SUBCUT ACHS Qty: 1 RF: 3 Flovent HFA 110 mcg/actuation HFA aerosol inhaler 2 puff inhalation BID Qty: 1 RF: 11 Hold Instructions: Change to budesonide neb Ventolin HFA 90 mcg/actuation HFA aerosol inhaler 1 puff inhalation Q6H PRN (Reason: shortness of breath or wheezing) Qty: 18 RF: 11 albuterol sulfate 2.5 mg /3 mL (0.083 %) solution for nebulization 2.5 mg INHALATION Q6H PRN (Reason: shortness of breath or wheezing) Qty: 90 RF: 11 ondansetron 4 mg tablet,disintegrating 4 mg Sublingual Q6HP PRN (Reason: nausea and vomiting) Qty: 120 RF: 2 tizanidine 4 mg tablet 4 mg PO Q8H PRN (Reason: muscle spasticity) Qty: 120 RF: 3 pantoprazole [Protonix] 40 mg tablet,delayed release (DR/EC) 80 mg PO QAM Qty: 90 RF: 1 lisinopril 10 mg tablet 10 mg PO DAILY RF: 0 vortioxetine 20 mg tablet 20 mg PO DAILY 90 Days Qty: 90 RF: 1 dextroamphetamine-amphetamine 10 mg capsule,extended release 24hr 10 mg PO QAM Qty: 30 RF: 0 (DME) DISABLED PARKING PERMIT See Rx Instructions .ROUTE .MEDSUPPLY Qty: 1 RF: 0 nystatin-triamcinolone 100,000-0.1 unit/gram-% ointment See Rx Instructions TOP BID Qty: 30 RF: 0 estradiol 0.01 % (0.1 mg/gram) cream See Rx Instructions VAG DAILY Qty: 42.5 RF: 3 estradiol 0.5 mg tablet 0.5 mg PO DAILY Qty: 30 RF: 3 budesonide 0.5 mg/2 mL suspension for nebulization 0.5 mg inhalation BID Qty: 360 RF: 3 ipratropium bromide 0.02 % solution 2.5 ml inhalation DAILY PRN (Reason: shortness of breath or wheezing) Qty: 75 RF: 11 (DME) FreeStyle Mckenna 14 Day Sensor Kit See Rx Instructions .Route Qty: 2 RF: 3 aspirin 81 mg tablet,delayed release (DR/EC) 81 mg PO DAILY RF: 0 atorvastatin 40 mg tablet 40 mg PO DAILY RF: 0 clopidogrel 75 mg tablet 75 mg PO DAILY RF: 0 metoprolol tartrate 25 mg tablet 12.5 mg PO BID RF: 0 nitroglycerin 0.4 mg tablet, sublingual 0.4 mg sublingual Q5-15M PRNRF: 0 epinephrine 0.3 mg/0.3 mL auto-injector 0.3 mg IM PRN PRN (Reason: Anaphylaxis) Qty: 1 RF: 11 Glucagon Emergency Kit (human) 1 mg Recon Soln 1 mg SUBCUT Q20M PRN (Reason: Hypoglycemia) RF: 0 Referrals: Ben Winchester MD [Primary Care Provider] -
[2021-06-14 17:07] LABS: Add Manual Diff / Slide Review NO; Basophils Absolute Auto 100 /uL (0-100); Eosinophils Absolute Auto 400 /uL (0-450); Eosinophils Percent Auto 3.1 % (2-4); Hematocrit 38.4 % (36-46); Hemoglobin 12.5 g/dL (12.0-16.0); Lymphocytes Absolute Auto 3100 /uL (1100-4500); Lymphocytes Percent Auto 25.9 % (25-40); Mean Corpuscular HGB Conc 32.7 % (30-36); Mean Corpuscular Hemoglobin 29.4 PG (26-34); Mean Corpuscular Volume 89.9 fL (80-100); Monocytes Absolute Auto 400 /uL (0-900); Monocytes Percent Auto 3.7 % (3-14); Neutrophils Absolute Auto 7900 /uL (1500-7000); Neutrophils Percent Auto 66.3 % (50-75); Platelet Count 276 X10^3/uL (150-400); Red Blood Cell Count 4.27 X10^6/uL (4.0-5.2); Red Cell Distribution Width 13.4 % (11.6-14.8)
[2021-06-14] MEDS: NITROGLYCERIN OINT 1 INCH/GM OINT...G. TOP (17:13)
[2021-06-14 17:20] LABS: Alanine Aminotransferase 27 IU/L (<35); Albumin 4.9 g/dL (3.5-5.0); Albumin Globulin Ratio 1.1 (1.0-2.8); Alkaline Phosphatase 337 U/L (38-126); Aspartate Aminotransferase 36 IU/L (14-36); BUN Creatinine Ratio 15.2 (6-22); Bilirubin Total 0.5 mg/dL (0.2-1.3); Blood Urea Nitrogen 25 mg/dL (7-17); Calcium 9.5 mg/dL (8.4-10.2); Carbon Dioxide 30 mmol/L (22-32); Chloride 98 mmol/L (98-107); Creatine Kinase 99 U/L (30-135); Estimated Glomerular Filt Rate 32.2 mL/min (>60); Globulin 4.4 g/dL (1.7-4.1); Glucose 298 mg/dL (70-100); HEMOLYSIS < 15 (0-50); Lipase 110 U/L (23-300); Potassium 4.2 mmol/L (3.4-5.1); Sodium 137 mmol/L (137-145); Total Protein 9.3 g/dL (6.3-8.2)
[2021-06-14 17:31] LABS: Troponin I < 0.012 ng/mL (0.01-0.034)
[2021-06-14] MEDS: LABETALOL 20 MG/4 ML SYRINGE 10 MG IV (17:55)
[2021-06-14 18:43] LABS: COVID19 - ADMIT (NP swab/PCR) Negative (Negative)
[2021-06-14] MEDS: lisinopriL 10 MG TABLET PO (18:46)
== END 2021-06-14 20:20 | disposition home or self-care (01) ==
PROVIDERS: Emergency Provider Emergency Medicine; PCP Student in an Organized Health Care Education/Training Program
DX: R07.9 Chest pain, unspecified (principal); I10 Essential (primary) hypertension; E11.42 Type 2 diabetes mellitus with diabetic polyneuropathy; Z20.822 Contact with and (suspected) exposure to COVID-19; Z87.891 Personal history of nicotine dependence
CPT/HCPCS: 36415; 71045; 80053; 82550; 83690; 84484; 85025; 87635; 93005; 93010; 96374; 99284; C9803

== ENCOUNTER → 2021-06-27 16:45 | Outpatient (CLI) | payer OTHER, MEDICAID, SELFPAY ==
[2021-06-16 13:54] VITALS: BMI 26.6
[2021-06-27 17:20] LABS: Add Manual Diff / Slide Review NO; Basophils Absolute Auto 100 /uL (0-100); Basophils Percent Auto 0.9 % (0-2); Eosinophils Absolute Auto 200 /uL (0-450); Eosinophils Percent Auto 1.8 % (2-4); Hematocrit 38.4 % (36-46); Hemoglobin 12.7 g/dL (12.0-16.0); Lymphocytes Absolute Auto 3000 /uL (1100-4500); Lymphocytes Percent Auto 33.4 % (25-40); Mean Corpuscular HGB Conc 33.2 % (30-36); Mean Corpuscular Hemoglobin 29.6 PG (26-34); Mean Corpuscular Volume 89.2 fL (80-100); Monocytes Absolute Auto 400 /uL (0-900); Monocytes Percent Auto 4.8 % (3-14); Neutrophils Absolute Auto 5400 /uL (1500-7000); Neutrophils Percent Auto 59.1 % (50-75); Platelet Count 286 X10^3/uL (150-400)
[2021-06-27 17:58] LABS: HEMOLYSIS < 15 (0-50); Iron 101 ug/dL (37-170)
[2021-06-27 18:01] LABS: BUN Creatinine Ratio 19.3 (6-22); Blood Urea Nitrogen 32 mg/dL (7-17); Calcium 9.7 mg/dL (8.4-10.2); Carbon Dioxide 22 mmol/L (22-32); Chloride 106 mmol/L (98-107); Estimated Glomerular Filt Rate 31.7 mL/min (>60); Glucose 161 mg/dL (70-100); HEMOLYSIS < 15 (0-50); Potassium 5.1 mmol/L (3.4-5.1); Sodium 139 mmol/L (137-145)
[2021-06-27 18:09] LABS: Percent Iron Saturation 23 % (15-50); Total Iron Binding Capacity 441 ug/dL (265-497); Transferrin 369 mg/dL (206-381)
[2021-06-27 18:28] LABS: Thyroid Stimulating Hormone 0.585 uIU/mL (0.47-4.68)
[2021-06-27 19:05] LABS: Vitamin B12 392 pg/mL (239-931)
== END ==
PROVIDERS: Nurse Practitioner Acute Care; PCP Student in an Organized Health Care Education/Training Program; Referring Provider Internal Medicine Cardiovascular Disease; Visit Provider Internal Medicine Cardiovascular Disease
DX: I21.9 Acute myocardial infarction, unspecified (principal)
CPT/HCPCS: 36415; 80048; 82607; 82746; 83540; 83550; 84443; 85025

== ENCOUNTER 2021-07-26 12:27 | Outpatient (RCR) | payer OTHER, MEDICAID, SELFPAY ==
[2021-06-16 13:54] VITALS: BMI 26.6
== END 2021-07-26 14:27 ==
LOC: CAR 12:27
PROVIDERS: PCP Student in an Organized Health Care Education/Training Program; Referring Provider Nurse Practitioner Acute Care; Visit Provider Nurse Practitioner Acute Care
DX: I21.3 ST elevation (STEMI) myocardial infarction of unspecified site (principal)
CPT/HCPCS: 93798

== ENCOUNTER → 2021-09-10 10:18 | Outpatient (CLI) | payer OTHER, MEDICAID, SELFPAY ==
[2021-06-16 13:54] VITALS: BMI 26.6
[2021-09-10 12:05] LABS: Alanine Aminotransferase 21 IU/L (<35); Albumin 3.6 g/dL (3.5-5.0); Albumin Globulin Ratio 1.2 (1.0-2.8); Alkaline Phosphatase 257 U/L (38-126); Aspartate Aminotransferase 44 IU/L (14-36); BUN Creatinine Ratio 17.9 (6-22); Bilirubin Total 0.5 mg/dL (0.2-1.3); Blood Urea Nitrogen 24 mg/dL (7-17); Calcium 8.7 mg/dL (8.4-10.2); Carbon Dioxide 24 mmol/L (22-32); Chloride 108 mmol/L (98-107); Estimated Glomerular Filt Rate 40.6 mL/min (>60); Globulin 3.1 g/dL (1.7-4.1); Glucose 223 mg/dL (70-100); HEMOLYSIS < 15 (0-50); Potassium 4.4 mmol/L (3.4-5.1); Sodium 137 mmol/L (137-145); Total Protein 6.7 g/dL (6.3-8.2)
[2021-09-10 12:44] LABS: Creatinine Urine Random 258.1 mg/dL
[2021-09-10 12:49] LABS: Microalbumi Creatinin Ratio Ur 15.8 ug/mg CR (<30); Microalbumin Urine Random 4.1 mg/dL (0-1.6)
== END ==
PROVIDERS: Physician Assistant; PCP Student in an Organized Health Care Education/Training Program; Referring Provider Internal Medicine Nephrology; Visit Provider Internal Medicine Nephrology
DX: N17.9 Acute kidney failure, unspecified (principal); N18.32 Chronic kidney disease, stage 3b
CPT/HCPCS: 36415; 80053; 82043; 82570

== ENCOUNTER → 2021-12-30 11:53 | Outpatient (CLI) | payer OTHER, MEDICAID, SELFPAY ==
[2021-12-15 13:02] VITALS: BMI 26.6
[2021-12-30 13:16] LABS: Add Manual Diff / Slide Review NO; Basophils Absolute Auto 100 /uL (0-100); Basophils Percent Auto 0.8 % (0-2); Eosinophils Absolute Auto 100 /uL (0-450); Eosinophils Percent Auto 1.9 % (2-4); Hematocrit 35.7 % (36-46); Lymphocytes Absolute Auto 2000 /uL (1100-4500); Lymphocytes Percent Auto 25.9 % (25-40); Mean Corpuscular HGB Conc 33.5 % (30-36); Mean Corpuscular Hemoglobin 29.5 PG (26-34); Mean Corpuscular Volume 88.3 fL (80-100); Monocytes Absolute Auto 500 /uL (0-900); Neutrophils Absolute Auto 5000 /uL (1500-7000); Neutrophils Percent Auto 65.4 % (50-75); Platelet Count 246 X10^3/uL (150-400); Red Blood Cell Count 4.05 X10^6/uL (4.0-5.2); Red Cell Distribution Width 14.8 % (11.6-14.8); White Blood Cell Count 7.6 X10^3/uL (4.5-11.0)
[2021-12-30 13:51] LABS: Alanine Aminotransferase 14 IU/L (<35); Albumin Globulin Ratio 1.2 (1.0-2.8); Alkaline Phosphatase 230 U/L (38-126); Aspartate Aminotransferase 27 IU/L (14-36); Bilirubin Total 0.4 mg/dL (0.2-1.3); Blood Urea Nitrogen 36 mg/dL (7-17); Calcium 8.8 mg/dL (8.4-10.2); Carbon Dioxide 25 mmol/L (22-32); Chloride 104 mmol/L (98-107); Estimated Glomerular Filt Rate 30 mL/min (>60); Globulin 3.4 g/dL (1.7-4.1); Glucose 155 mg/dL (70-100); HEMOLYSIS < 15 (0-50); Potassium 4.3 mmol/L (3.4-5.1); Sodium 137 mmol/L (137-145); Total Protein 7.4 g/dL (6.3-8.2)
[2021-12-31 14:43] LABS: Free Kappa Lt Chains, Serum 54.6 mg/L (3.3-19.4)
[2022-01-03 12:11] LABS: Immunoglobulin A, Serum 280 mg/dL (87-352); Immunoglobulin G,Serum 1148 mg/dL (586-1602); Immunoglobulin M, Serum 97 mg/dL (26-217)
[2022-01-03 13:46] LABS: Albumin 3.3 g/dL (2.9-4.4); Alpha-1-Globulin 0.3 g/dL (0.0-0.4); Alpha-2-Globulin 0.9 g/dL (0.4-1.0); Gamma Globulin 1.2 g/dL (0.4-1.8); Globulin Total 3.5 g/dL (2.2-3.9); Protein, Total 6.8 g/dL (6.0-8.5)
== END ==
PROVIDERS: PCP Internal Medicine; Referring Provider Internal Medicine Hematology & Oncology; Visit Provider Internal Medicine Hematology & Oncology
DX: E85.9 Amyloidosis, unspecified (principal); R76.8 Other specified abnormal immunological findings in serum
CPT/HCPCS: 36415; 80053; 82784; 83883; 84155; 84165; 85025; 86334

== ENCOUNTER → 2022-02-07 16:58 | Outpatient (CLI) | payer OTHER, MEDICAID, SELFPAY ==
[2022-01-31 14:42] VITALS: BMI 26.6
[2022-02-07 18:20] LABS: Add Manual Diff / Slide Review NO; Basophils Absolute Auto 100 /uL (0-100); Basophils Percent Auto 0.8 % (0-2); Eosinophils Absolute Auto 100 /uL (0-450); Eosinophils Percent Auto 1.2 % (2-4); Hematocrit 37.7 % (36-46); Hemoglobin 12.8 g/dL (12.0-16.0); Lymphocytes Absolute Auto 1800 /uL (1100-4500); Lymphocytes Percent Auto 19.3 % (25-40); Mean Corpuscular HGB Conc 33.8 % (30-36); Mean Corpuscular Hemoglobin 30.1 PG (26-34); Mean Corpuscular Volume 88.8 fL (80-100); Monocytes Absolute Auto 400 /uL (0-900); Monocytes Percent Auto 3.9 % (3-14); Neutrophils Absolute Auto 7100 /uL (1500-7000); Neutrophils Percent Auto 74.8 % (50-75); Platelet Count 252 X10^3/uL (150-400); Red Blood Cell Count 4.24 X10^6/uL (4.0-5.2); Red Cell Distribution Width 14.2 % (11.6-14.8); White Blood Cell Count 9.5 X10^3/uL (4.5-11.0)
[2022-02-07 18:25] LABS: Alanine Aminotransferase 24 IU/L (<35); Albumin 4.1 g/dL (3.5-5.0); Albumin Globulin Ratio 1.1 (1.0-2.8); Alkaline Phosphatase 337 U/L (38-126); Aspartate Aminotransferase 37 IU/L (14-36); BUN Creatinine Ratio 15.4 (6-22); Bilirubin Total 0.4 mg/dL (0.2-1.3); Blood Urea Nitrogen 20 mg/dL (7-17); Calcium 8.9 mg/dL (8.4-10.2); Carbon Dioxide 27 mmol/L (22-32); Chloride 106 mmol/L (98-107); Estimated Glomerular Filt Rate 48 mL/min (>60); Globulin 3.7 g/dL (1.7-4.1); Glucose 265 mg/dL (70-100); HEMOLYSIS < 15 (0-50); Potassium 4.3 mmol/L (3.4-5.1); Sodium 138 mmol/L (137-145); Total Protein 7.8 g/dL (6.3-8.2)
[2022-02-07 18:27] LABS: Cholesterol 203 mg/dL (140-199); HDL Cholesterol 73 mg/dL (40-60); LDL Cholesterol Calculated 103 mg/dL (<100); Triglycerides 134 mg/dL (35-150)
[2022-02-07 18:49] LABS: Creatinine Urine Random 321.5 mg/dL
[2022-02-07 18:54] LABS: Microalbumi Creatinin Ratio Ur 9.9 ug/mg CR (<30); Microalbumin Urine Random 3.2 mg/dL (0-1.6)
[2022-02-09 14:06] LABS: Free Kappa Lt Chains, Serum 40.3 mg/L (3.3-19.4); Free Lambda Lt Chains,Serum 26.5 mg/L (5.7-26.3)
[2022-02-10 14:24] LABS: Albumin 3.3 g/dL (2.9-4.4); Alpha-1-Globulin 0.3 g/dL (0.0-0.4); Alpha-2-Globulin 0.9 g/dL (0.4-1.0); Gamma Globulin 1.3 g/dL (0.4-1.8); Globulin Total 3.7 g/dL (2.2-3.9); Immunoglobulin A, Serum 259 mg/dL (87-352); Immunoglobulin G,Serum 1224 mg/dL (586-1602); Immunoglobulin M, Serum 83 mg/dL (26-217)
== END ==
PROVIDERS: Student in an Organized Health Care Education/Training Program; PCP Internal Medicine; Referring Provider Internal Medicine Hematology & Oncology; Visit Provider Internal Medicine Hematology & Oncology
DX: E85.9 Amyloidosis, unspecified (principal); R76.8 Other specified abnormal immunological findings in serum; E11.65 Type 2 diabetes mellitus with hyperglycemia; I10 Essential (primary) hypertension; I21.9 Acute myocardial infarction, unspecified
CPT/HCPCS: 36415; 80053; 80061; 82043; 82570; 82784; 83883; 84155; 84165; 85025; 86334

== ENCOUNTER → 2022-06-21 14:07 | Outpatient (CLI) | payer OTHER, MEDICAID, SELFPAY ==
[2022-01-31 14:42] VITALS: BMI 26.6
[2022-06-21 15:10] LABS: Hematocrit 31.9 % (36-46); Hemoglobin 10.7 g/dL (12.0-16.0); Mean Corpuscular HGB Conc 33.5 % (30-36); Mean Corpuscular Hemoglobin 28.9 PG (26-34); Mean Corpuscular Volume 86.3 fL (80-100); Platelet Count 274 X10^3/uL (150-400); Red Cell Distribution Width 14.5 % (11.6-14.8)
[2022-06-21 15:33] LABS: Erythrocyte Sedimentation Rate 65 MM/HR (0-20)
[2022-06-21 15:51] LABS: Alanine Aminotransferase 17 IU/L (<35); Albumin 3.9 g/dL (3.5-5.0); Albumin Globulin Ratio 1.1 (1.0-2.8); Alkaline Phosphatase 259 U/L (38-126); Aspartate Aminotransferase 34 IU/L (14-36); BUN Creatinine Ratio 12.2 (6-22); Bilirubin Total 0.2 mg/dL (0.2-1.3); Blood Urea Nitrogen 27 mg/dL (7-17); C-Reactive Protein Quant 1.5 mg/dL (<1.0); Calcium 8.4 mg/dL (8.4-10.2); Carbon Dioxide 23 mmol/L (22-32); Chloride 103 mmol/L (98-107); Estimated Glomerular Filt Rate 25 mL/min (>60); Globulin 3.7 g/dL (1.7-4.1); Glucose 204 mg/dL (70-100); HEMOLYSIS < 15 (0-50); Potassium 4.1 mmol/L (3.4-5.1); Sodium 135 mmol/L (137-145); Total Protein 7.6 g/dL (6.3-8.2)
== END ==
PROVIDERS: PCP Internal Medicine; Referring Provider Internal Medicine; Visit Provider Internal Medicine
DX: I10 Essential (primary) hypertension (principal); I87.2 Venous insufficiency (chronic) (peripheral); N18.32 Chronic kidney disease, stage 3b
CPT/HCPCS: 36415; 80053; 85027; 85651; 86140

== ENCOUNTER → 2022-08-18 11:30 | Outpatient (CLI) | payer OTHER, MEDICAID, SELFPAY ==
[2022-01-31 14:42] VITALS: BMI 26.6
--- NOTE | 2022-08-18 | DI.MG.S_ITS ---
BILATERAL DIGITAL SCREENING MAMMOGRAM 3D/2D WITH CAD: 08/18/2022 CLINICAL: Routine screening. Comparison is made to exams dated: 05/24/2020 ultrasound, 05/24/2020 mammogram, 08/28/2019 ultrasound, 08/08/2019 mammogram, and 05/18/2016 mammogram - [facility]. There are scattered areas of fibroglandular density in both breasts (category b / 25%-50% glandular tissue). Current study was also evaluated with a Computer Aided Detection (CAD) system. No significant masses, calcifications, or other findings are seen in either breast. There has been no significant interval change. IMPRESSION: NEGATIVE There is no mammographic evidence of malignancy. A 1 year screening mammogram is recommended. Based on the Tyrer Cuzick model (a risk assessment model) the patient's lifetime risk is 4.4% and her 10 year risk is 1.7%. According to the ACR, ACS, and NCCN guidelines, an annual breast MRI exam along with mammogram is recommended if the patient's lifetime risk is 20% or greater. This exam was interpreted at Station ID: [id number]. NOTE: For mammograms, a report in lay terms will be sent to the patient. Approximately 15% of breast malignancies will not be visualized mammographically. In the management of a palpable breast mass, a negative mammogram must not discourage biopsy of a clinically suspicious lesion. Electronically Signed By: Ward Hayden M.D., jr/faith:08/18/2022 14:07:46 copy to: Ben French copy to: Lauro Ramirez letter sent: Normal Exam ACR BI-RADS Category 1: Negative [id number]
--- NOTE | 2022-08-18 11:31 | DI.US.S_ITS ---
PROCEDURE: US PERIPH VENOUS LOW EXTREM LT INDICATIONS: PAIN TECHNIQUE: Real-time imaging, as well as color and pulse Doppler interrogation, were performed of the lower extremity deep veins from the inguinal ligament to the popliteal fossa. COMPARISON: None. FINDINGS: The common femoral, femoral and popliteal veins are normally compressible, and free of intraluminal thrombus. Color and pulse Doppler demonstrate normal phasic intraluminal flow. There is normal augmentation response to distal compression maneuver. No occlusive or partially occlusive DVT is seen. Several nonspecific echogenic thin foci are seen within the common femoral vein and superficial femoral vein on the left, presumably minimal vein wall scarring perhaps related to prior distant past DVT. IMPRESSION: No acute disease, no sign of appreciable narrowing of the lumen of the deep venous system left lower extremity. The echogenic foci noted above within the common femoral and superficial femoral veins on the left are nonspecific, but can be produced secondary to minimal scarring from distant past DVT. Dictated by: Christophe Umana M.D. on 08/18/2022 at 14:38 Approved by: Christophe Umana M.D. on 08/18/2022 at 14:40
[2022-08-18 13:59] LABS: Hematocrit 32.3 % (36-46); Hemoglobin 10.7 g/dL (12.0-16.0); Mean Corpuscular HGB Conc 33.1 % (30-36); Mean Corpuscular Hemoglobin 28.4 PG (26-34); Mean Corpuscular Volume 85.6 fL (80-100); Platelet Count 178 X10^3/uL (150-400); Red Blood Cell Count 3.77 X10^6/uL (4.0-5.2); Red Cell Distribution Width 15.1 % (11.6-14.8); White Blood Cell Count 9.2 X10^3/uL (4.5-11.0)
[2022-08-18 14:07] LABS: BUN Creatinine Ratio 9.1 (6-22); Blood Urea Nitrogen 22 mg/dL (7-17); Calcium 8.4 mg/dL (8.4-10.2); Carbon Dioxide 20 mmol/L (22-32); Chloride 107 mmol/L (98-107); Estimated Glomerular Filt Rate 22 mL/min (>60); Glucose 96 mg/dL (70-100); HEMOLYSIS < 15 (0-50); Potassium 4.3 mmol/L (3.4-5.1); Sodium 137 mmol/L (137-145)
== END ==
PROVIDERS: PCP Internal Medicine; Referring Provider Internal Medicine; Visit Provider Internal Medicine
DX: Z12.31 Encounter for screening mammogram for malignant neoplasm of breast (principal); Z13.820 Encounter for screening for osteoporosis; M81.0 Age-related osteoporosis without current pathological fracture; Z78.0 Asymptomatic menopausal state; N17.9 Acute kidney failure, unspecified; E11.22 Type 2 diabetes mellitus with diabetic chronic kidney disease; I12.9 Hypertensive chronic kidney disease with stage 1 through stage 4 chronic kidney disease, or unspecified chronic kidney disease; N18.32 Chronic kidney disease, stage 3b; E11.59 Type 2 diabetes mellitus with other circulatory complications; I87.2 Venous insufficiency (chronic) (peripheral); M79.606 Pain in leg, unspecified; Z90.710 Acquired absence of both cervix and uterus
CPT/HCPCS: 36415; 77063; 77067; 77080; 80048; 85027; 93971

== ENCOUNTER → 2022-09-19 11:15 | Outpatient (CLI) | payer OTHER, MEDICAID, SELFPAY ==
[2022-01-31 14:42] VITALS: BMI 26.6
[2022-09-19 12:03] LABS: Add Manual Diff / Slide Review NO; Basophils Absolute Auto 100 /uL (0-100); Basophils Percent Auto 0.6 % (0-2); Eosinophils Absolute Auto 300 /uL (0-450); Hematocrit 30.5 % (36-46); Hemoglobin 10.2 g/dL (12.0-16.0); Lymphocytes Absolute Auto 2700 /uL (1100-4500); Mean Corpuscular HGB Conc 33.3 % (30-36); Mean Corpuscular Hemoglobin 28.8 PG (26-34); Mean Corpuscular Volume 86.7 fL (80-100); Monocytes Absolute Auto 500 /uL (0-900); Monocytes Percent Auto 6.6 % (3-14); Neutrophils Absolute Auto 4600 /uL (1500-7000); Neutrophils Percent Auto 55.8 % (50-75); Platelet Count 167 X10^3/uL (150-400); Red Blood Cell Count 3.52 X10^6/uL (4.0-5.2); Red Cell Distribution Width 16.3 % (11.6-14.8); White Blood Cell Count 8.3 X10^3/uL (4.5-11.0)
[2022-09-19 12:21] LABS: Albumin 3.4 g/dL (3.5-5.0); BUN Creatinine Ratio 13.4 (6-22); Blood Urea Nitrogen 26 mg/dL (7-17); Calcium 8.5 mg/dL (8.4-10.2); Carbon Dioxide 23 mmol/L (22-32); Chloride 108 mmol/L (98-107); Estimated Glomerular Filt Rate 29 mL/min (>60); Glucose 97 mg/dL (70-100); HEMOLYSIS < 15 (0-50); Phosphorous 2.9 mg/dL (2.5-4.5); Potassium 4.8 mmol/L (3.4-5.1); Sodium 137 mmol/L (137-145)
[2022-09-19 12:36] LABS: Vitamin D 25 Hydroxy (D3) 15.3 ng/mL (30.0-100.0)
[2022-09-19 13:58] LABS: Creatinine Urine Random 146.3 mg/dL
[2022-09-19 15:03] LABS: Microalbumi Creatinin Ratio Ur 198.2 ug/mg CR (<30)
[2022-09-20 07:42] LABS: Hepatitis B Surf AB Quant <3.1 mIU/mL (Immunity>9.9)
[2022-09-21 09:09] LABS: HCV AB Non Reactive (Non Reactive)
[2022-09-21 16:07] LABS: Hepatitis B Surface Antigen NEGATIVE s/c (NEGATIVE)
[2022-09-22 10:09] LABS: Parathyroid Hormone Int 159 pg/mL (15-65)
== END ==
PROVIDERS: PCP Internal Medicine; Referring Provider Internal Medicine Nephrology; Visit Provider Internal Medicine Nephrology
DX: N17.9 Acute kidney failure, unspecified (principal)
CPT/HCPCS: 36415; 80048; 82040; 82043; 82306; 82570; 83970; 84100; 85025; 86706; 86803; 87340

== ENCOUNTER → 2022-09-27 14:37 | Outpatient (CLI) | payer OTHER, MEDICAID, SELFPAY ==
[2022-01-31 14:42] VITALS: BMI 26.6
[2022-09-27 15:32] LABS: BUN Creatinine Ratio 13.1 (6-22); Blood Urea Nitrogen 27 mg/dL (7-17); Calcium 8.5 mg/dL (8.4-10.2); Carbon Dioxide 27 mmol/L (22-32); Chloride 103 mmol/L (98-107); Estimated Glomerular Filt Rate 27 mL/min (>60); Glucose 86 mg/dL (70-100); HEMOLYSIS < 15 (0-50); Potassium 4.3 mmol/L (3.4-5.1); Sodium 138 mmol/L (137-145)
== END ==
PROVIDERS: PCP Internal Medicine; Referring Provider Internal Medicine Nephrology; Visit Provider Internal Medicine Nephrology
DX: N18.4 Chronic kidney disease, stage 4 (severe) (principal)
CPT/HCPCS: 36415; 80048; 83735

== ENCOUNTER → 2022-10-03 14:31 | Outpatient (CLI) | payer OTHER, MEDICAID, SELFPAY ==
[2022-01-31 14:42] VITALS: BMI 26.6
[2022-10-03 15:11] LABS: BUN Creatinine Ratio 12.5 (6-22); Blood Urea Nitrogen 33 mg/dL (7-17); Calcium 8.3 mg/dL (8.4-10.2); Carbon Dioxide 27 mmol/L (22-32); Chloride 99 mmol/L (98-107); Estimated Glomerular Filt Rate 20 mL/min (>60); Glucose 163 mg/dL (70-100); HEMOLYSIS < 15 (0-50); Magnesium 1.7 mg/dL (1.6-2.3); Potassium 3.6 mmol/L (3.4-5.1); Sodium 137 mmol/L (137-145)
== END ==
PROVIDERS: PCP Internal Medicine; Referring Provider Internal Medicine Nephrology; Visit Provider Internal Medicine Nephrology
DX: N18.4 Chronic kidney disease, stage 4 (severe) (principal)
CPT/HCPCS: 36415; 80048; 83735

== ENCOUNTER 2022-10-24 15:33 | Inpatient (IN) | payer OTHER, MEDICAID, SELFPAY ==
[2022-01-31 14:42] VITALS: BMI 26.6
[2022-10-24] VITALS (22 sets, daily range): BP systolic 119–196; BP diastolic 64–81; PULSE 58–75; RESP 11–16; TEMP 36.4–36.5; O2SAT 94–97; BMI 24.8
--- NOTE | 2022-10-24 16:11 | DI.CT.S_ITS ---
PROCEDURE: CT KIDNEY URETER BLADDER (KUB) INDICATIONS: Hx of diabetes and CKD, nausea vomiting and diarrhea x7 days TECHNIQUE: Axial sections were acquired from the lung bases to the pubic symphysis. Coronal and sagittal reformats were performed. For radiation dose reduction, the following was used: automated exposure control, adjustment of mA and/or kV according to patient size. COMPARISON: [facility], CT, CT ABDOMEN PELVIS W CON, 10/06/2018, 14:09. FINDINGS: Image quality: Good Lower chest: [id number] lower lung airspace disease and atelectasis. Coronary calcifications. Small hiatal hernia. Solid organs: Morphologic liver changes suggestive of chronic liver disease. Gallbladder is absent. Moderate dilation of the biliary tree post cholecystectomy, stable. No pancreatic ductal dilation. No splenomegaly. No adrenal nodules. No calcified renal stones are identified. No hydronephrosis. Vessels and lymph nodes: No abdominal aortic aneurysm. No pathologic adenopathy by size criteria. Bowel and peritoneum: No evidence of small bowel obstruction. No pathologic ascites. Appendix is within normal limits. Body wall: Unremarkable Pelvis: Bladder is under distended. Hysterectomy. Bones: No acute or suspicious osseous finding. Leftward spinal curvature. IMPRESSION: No acute abdominopelvic pathology. Multiple incidental and likely nonacute findings as above. Partially visualized infectious or inflammatory lower lung airspace disease, and atelectasis. Consider future imaging surveillance to assess for resolution. Dictated by: Nathan Barbosa M.D. on 10/24/2022 at 16:43 Approved by: Nathan Barbosa M.D. on 10/24/2022 at 16:50
--- NOTE | 2022-10-24 16:12 | ED.NAVMDI ---
HPI - Nausea/Vomiting/Diarrhea <PADMAJA Juan - Last Filed: 10/24/22 20:09> General Chief complaint: Nausea/Vomiting/Diarrhea Stated complaint: kidney pain, unable to eat Time Seen by Provider: 10/24/22 16:02 History of Present Illness HPI Narrative: This is a 57-year-old female with history of type 2 diabetes, chronic kidney disease, COPD and fibromyalgia, sarcoidosis, nephrolithiasis, CAD with stent placement, not currently on anticoagulation, gastroparesis who presents to the emergency department complaining of recent COVID infection 2 weeks ago, ongoing nausea with vomiting and difficulty keeping anything down over the last 7 days, poor appetite, generalized abdominal pain, denies urinary frequency or urgency. Denies chest pain or shortness of breath, denies any other new pain or symptoms. States that she is having a kidney Doppler ultrasound this week and is being worked up for sarcoidosis. She states that her blood sugars have been under control, no blood sugars over 200s, endorses nausea and vomiting for the last 7 days. Related Data Home Medications Medication Instructions Recorded Confirmed cyclosporine 0.05 % eye drops in a 1 drp [facility] BID ##0 11/09/17 10/24/22 dropperette (Restasis) prenat.vits,jeremy,eol-xzhq-abruz 1 tab PO DAILY 01/18/18 10/24/22 glucagon (human recombinant) 1 mg 1 mg SUBCUT Q20M PRN Hypoglycemia 10/06/18 10/24/22 solution for injection (Glucagon Emergency Kit) aspirin 81 mg tablet,delayed 81 mg PO DAILY 03/21/21 10/24/22 release nitroglycerin 0.4 mg sublingual 0.4 mg sublingual Q5-15M PRN Chest 03/21/21 10/24/22 tablet Pain sitagliptin phosphate 25 mg tablet 25 mg PO DAILY 07/27/21 10/24/22 (Januvia) diphenhydramine HCl 25 mg tablet 12.5 mg PO BID PRN pruritis 12/14/21 10/24/22 (Benadryl Allergy) nifedipine 30 mg tablet,extended 30 mg PO DAILY 12/14/21 10/24/22 release buprenorphine 8 mg-naloxone 2 mg 2 film buccal DAILY 03/22/22 10/24/22 sublingual film (Suboxone) blood-glucose sensor (Dexcom G6 #3 ea 06/21/22 10/24/22 Sensor device) torsemide 20 mg tablet 20 mg PO DAILY 09/27/22 10/24/22 Previous Rx's Medication Instructions Recorded ketoconazole 2 % topical cream 1 nathan topical BID ##30 09/11/17 insulin glargine 100 unit/mL (3 30 unit (0.3 mL) SUBCUT HS #1 mL 05/31/18 mL) subcutaneous pen (Lantus Solostar U-100 Insulin) insulin lispro 100 unit/mL 10 - 15 unit (0.1 - 0.15 mL) 05/31/18 subcutaneous pen (Humalog KwikPen SUBCUT ACHS ##1 (U-100) Insulin) nystatin-triamcinolone 100,000 See Rx Instructions topical BID 09/24/18 unit/gram-0.1 % topical ointment #30 grams albuterol sulfate 2.5 mg/3 mL 2.5 mg (3 mL) inhalation Q6H PRN 03/12/20 (0.083 %) solution for nebulization shortness of breath or wheezing #90 mL budesonide 0.5 mg/2 mL suspension 0.5 mg (2 mL) inhalation BID #360 07/16/20 for nebulization mL ondansetron 4 mg disintegrating 4 mg sublingual Q6HP PRN nausea 12/06/20 tablet and vomiting #120 tabs epinephrine 0.3 mg/0.3 mL 0.3 mg (0.3 mL) IM PRN PRN 03/21/21 injection, auto-injector Anaphylaxis #1 ea DISABLED PARKING PERMIT #1 ea 06/08/21 albuterol sulfate 90 mcg/actuation 1 puff inhalation Q6H PRN 10/24/21 aerosol inhaler (Ventolin HFA) shortness of breath or wheezing #18 grams pantoprazole 40 mg tablet,delayed 80 mg PO QAM #180 tabs 03/20/22 release (Protonix) rosuvastatin 40 mg tablet 40 mg PO DAILY #90 tabs 03/20/22 tizanidine 4 mg tablet 4 mg PO Q8H PRN muscle spasticity 07/17/22 #120 tabs estradiol 0.05 mg/24 hr semiweekly 1 patch transdermal 2XW #8 ea 08/30/22 transdermal patch (Daria) quetiapine 50 mg tablet 100 mg PO BEDTIME #180 tabs 09/04/22 vortioxetine 20 mg tablet 20 mg PO DAILY #90 tabs 09/04/22 dextroamphetamine-amphetamine ER 5 5 mg PO QAM #30 caps 09/22/22 mg 24hr capsule,extend release colchicine 0.6 mg tablet 0.6 mg PO BID #30 tabs 09/27/22 clonazepam 0.5 mg tablet 0.5 mg PO BID #60 tabs 10/04/22 Allergies Allergy/AdvReac Type Severity Reaction Status Date / Time luciano Allergy Severe Anaphylaxis Verified 09/27/22 13:54 lidocaine Allergy Severe sanchez - Verified 09/27/22 13:54 rash venom-honey bee Allergy Severe SWOLLEN Verified 09/27/22 13:54 [bee venom (honey bee)] TONGUE AND THROAT BUT NOT ANAPHALAXIS pregabalin [From LYRICA] Allergy Intermediate 'WELTS ON Verified 09/27/22 13:54 MY BODY' cyclobenzaprine Allergy Unknown Verified 09/27/22 13:54 [From FLEXERIL] gabapentin Allergy Unknown MY Verified 09/27/22 13:54 THOUGHT IT MADE ME ACT WERID hydroxyzine AdvReac Unknown PT STATES Verified 09/27/22 13:54 EYES DRIES ME UP venlafaxine AdvReac Unknown MADE MY Verified 09/27/22 13:54 BLOOD PRESSURE HIGH trazodone AdvReac heart Verified 09/27/22 13:54 palpatations fake sugar Allergy Unknown blotchy Uncoded 09/27/22 13:54 Review of Systems <PADMAJA Juan - Last Filed: 10/24/22 20:09> Review of Systems ROS Unobtainable: All systems reviewed & are unremarkable except as noted in HPI and below Patient History <PADMAJA Juan - Last Filed: 10/24/22 20:09> Medical History ADHD (attention deficit hyperactivity disorder) Age-related osteoporosis without current pathological fracture Anxiety Back pain Cataract Central sleep apnea Cervical cancer (1991) Chicken pox Chronic cough Chronic headaches Chronic kidney disease, stage 3b Chronic, continuous use of opioids COPD (chronic obstructive pulmonary disease) Coronary artery disease 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) Diabetes mellitus (2003) Esophageal stricture (09/2017) Essential hypertension Fibromyalgia (06/24/15) Generalized anxiety disorder GERD (gastroesophageal reflux disease) (1980) GERD without esophagitis History of blood transfusion (~07/1981) Hyperlipidemia (1991) Hypertension (1991) Hypertensive urgency Influenza B Insomnia Kidney stones Lumbar spine pain Major depressive disorder, recurrent, moderate Medicare annual wellness visit, initial Menopausal symptoms Menopausal syndrome Mixed hyperlipidemia Obstructive sleep apnea Pancreatitis (2010) Polyneuropathy, unspecified Post-traumatic stress disorder, chronic Recurrent falls Right fibular fracture Sarcoidosis Scoliosis Shoulder pain Spinal stenosis Trichotillomania Type 2 diabetes mellitus with cardiac complication Type 2 diabetes mellitus with diabetic polyneuropathy (07/22/15) Vaginal atrophy Venous (peripheral) insufficiency Weakness of both legs Surgical History Anesthesia History of tonsillectomy (1967) S/P dilatation of esophageal stricture (09/2017) Status post cataract extraction Status post delivery (05/02/85) Status post cholecystectomy (02/1985) Status post hysterectomy (1986) Family History Brother Age: 65 Diabetes mellitus Child Age: 41 Asthma Child Heart defect Father Age: 85 Hypertension Cirrhosis of liver Mother Heart disease High cholesterol Amyloidosis Sister Age: 62 Diabetes mellitus Heart disease Sister Heart disease Social History household members: spouse Smoking Status: Former smoker alcohol intake: never Smoking Status: Former smoker alcohol intake frequency: holidays/special occasions only Substance Use Type: painkillers and prescription drug Exam <PADMAJA Juan - Last Filed: 10/24/22 20:09> Narrative Exam Narrative: Reviewed vitals signs and nursing notes. General: cooperative, in no acute distress, well groomed, chronically ill-appearing, resting in bed HEENT: symmetrical facial expressions, dry mucous membranes, neck is supple CV: regular rate and rhythm, warm extremities Respiratory: Without abnormal breath sounds, normal work of breathing, without tachypnea, hypoxia. GI: abdomen soft, nontender to palpation in all quadrants, nondistended, without masses, rebound tenderness or CVA tenderness bilaterally. MSK: moves all extremities, neurovascularly intact, no weakness, normal tone Skin: brisk capillary refill, without rash or wound Neuro: normal speech and cognition, A&O x3, ambulatory, clear speech Initial Vital Signs Initial Vital Signs: Vital Signs Temperature 97.6 F 10/24/22 15:39 Pulse Rate 68 10/24/22 15:39 Respiratory Rate 16 10/24/22 15:39 Blood Pressure 119/65 10/24/22 15:39 Pulse Oximetry 97 10/24/22 15:39 Oxygen Delivery Method Room Air 10/24/22 15:39 <Cliff Whipple DO - Last Filed: 10/24/22 17:05> Initial Vital Signs Initial Vital Signs: Vital Signs Temperature 97.6 F 10/24/22 15:39 Pulse Rate 68 10/24/22 15:39 Respiratory Rate 16 10/24/22 15:39 Blood Pressure 119/65 10/24/22 15:39 Pulse Oximetry 97 10/24/22 15:39 Oxygen Delivery Method Room Air 10/24/22 15:39 <Carlos Eduardo Miller DO - Last Filed: 10/24/22 23:33> Initial Vital Signs Initial Vital Signs: Vital Signs Temperature 97.6 F 10/24/22 15:39 Pulse Rate 68 10/24/22 15:39 Respiratory Rate 16 10/24/22 15:39 Blood Pressure 119/65 10/24/22 15:39 Pulse Oximetry 97 10/24/22 15:39 Oxygen Delivery Method Room Air 10/24/22 15:39 Course <PADMAJA Juan - Last Filed: 10/24/22 20:09> Orders Ordered: ED Orders 10/24/22 16:11 CT kidney ureter bladder (KUB) Stat 10/24/22 16:15 CBC Auto Diff [Complete Blood Count AUTO DIFF] Stat CMP [Comprehensive Metabolic Panel] Stat CRP [C-Reactive Protein Quant] Stat Ketones (Beta-Hydroxybutyrate) Stat Lactate (Lactic Acid) Stat Lipase Stat Magnesium Stat 10/24/22 16:55 US renal complete Stat 10/24/22 17:45 Covid-19 + FLU A/B + RSV - PCR Stat 10/24/22 17:49 Venous Blood Gas Stat 10/24/22 18:07 Creatinine Urine Random Stat Sodium Urine Random Stat UA Complete [Urinalysis and Microscopic] Stat 10/24/22 20:03 BMP [Basic Metabolic Panel] Stat Acetaminophen (Acetaminophen 325 Mg Tablet) 650 mg PO Q6H PRN PRN Reason: Fever/Mild Pain (1-3) Albuterol (Albuterol 2.5 Mg/3 Ml Neb (Adult)) 2.5 mg INH Q6H PRN PRN Reason: shortness of breath or wheezing Aspirin (Aspirin Ec 81 Mg Tablet) 81 mg PO DAILY [facility] Budesonide (Budesonide 0.5 Mg/2 Ml Neb) 0.5 mg INH BID [facility] Clopidogrel Bisulfate (Clopidogrel 75 Mg Tablet) 75 mg PO DAILY [facility] Dextrose (Dextrose 50 % In Water 25 Gm/50 Ml Syringe) 25 gm IV PRN PRN PRN Reason: Hypoglycemia Heparin Sodium (Porcine) (Heparin 5,000 Unit/Ml Vial) 5,000 unit SUBCUT BID [facility] Sodium Chloride (Normal Saline 0.9%) 1,000 mls @ 150 mls/hr IV CONT [facility] Last Admin: 10/24/22 21:44 Dose: 150 mls/hr Documented By: AC Insulin Glargine (Insulin Glargine 100 Unit/Ml 3ml Pen) 25 unit SUBCUT BID [facility] Last Admin: 10/24/22 21:53 Dose: Not Given Documented By: CB Insulin Human Lispro (Insulin Lispro 100 Unit/Ml 3ml Vial) 0 unit SUBCUT ACHS [facility]; Protocol Metoprolol Tartrate (Metoprolol Ir 25 Mg Tablet) 12.5 mg PO BID [facility] Naloxone HCl (Naloxone 0.4 Mg/Ml Vial) 0.2 mg IV Q2MIN PRN PRN Reason: Opiate Reversal Nifedipine (Nifedipine 30 Mg Tab Er) 30 mg PO DAILY [facility] Ondansetron HCl (Ondansetron 4 Mg/2 Ml Inj) 4 mg IV Q8HR PRN PRN Reason: Nausea And Vomiting Discontinued Medications Hydromorphone HCl (Hydromorphone 0.5 Mg Inj) 0.5 mg IV NOW ONE Stop: 10/24/22 16:58 Last Admin: 10/24/22 17:08 Dose: 0.5 mg Documented By: SPF Hydromorphone HCl (Hydromorphone 0.5 Mg Inj) 0.5 mg IV NOW ONE Stop: 10/24/22 19:30 Last Admin: 10/24/22 20:11 Dose: 0.5 mg Documented By: KH Sodium Chloride (Normal Saline 0.9%) 500 mls @ 1,000 mls/hr IV BOLUS ONE Stop: 10/24/22 17:24 Last Admin: 10/24/22 17:04 Dose: Not Given Documented By: MELISSA Sodium Chloride (Normal Saline 0.9%) 1,000 mls @ 1,000 mls/hr IV BOLUS ONE Stop: 10/24/22 18:01 Last Infusion: 10/24/22 19:04 Dose: 0 mls/hr Documented By: Admin: 10/24/22 17:09 Dose: 1,000 mls/hr Documented By: MALCOM Sodium Chloride (Normal Saline 0.9%) 1,000 mls @ 1,000 mls/hr IV BOLUS ONE Stop: 10/24/22 19:41 Last Infusion: 10/24/22 21:14 Dose: 0 mls/hr Documented By: Infusion: 10/24/22 19:04 Dose: 1,000 mls/hr Documented By: Infusion: 10/24/22 19:02 Dose: 0 mls/hr Documented By: Admin: 10/24/22 19:02 Dose: 1,000 mls/hr Documented By: ROBERTA POTASSIUM CHLORIDE IN WATER (Potassium Cl 10 Meq/100 Ml Jeri) 10 meq in 100 mls @ 100 mls/hr IV Q1H [facility] Stop: 10/24/22 21:14 Last Infusion: 10/24/22 21:22 Dose: 0 mls/hr Documented By: Admin: 10/24/22 20:33 Dose: 100 mls/hr Documented By: Infusion: 10/24/22 20:21 Dose: 100 mls/hr Documented By: Admin: 10/24/22 19:21 Dose: 100 mls/hr Documented By: MALCOM Ondansetron HCl (Ondansetron 4 Mg/2 Ml Inj) 4 mg IV NOW PRN PRN Reason: Nausea And Vomiting Last Admin: 10/24/22 17:10 Dose: 4 mg Documented By: MALCOM Potassium Chloride (Potassium Chloride 20 Meq/15 Ml Udc) 40 meq PO NOW ONE Stop: 10/24/22 17:18 Last Admin: 10/24/22 19:16 Dose: Not Given Documented By: MALCOM Vital Signs Vital signs: Vital Signs - 8 hr 10/24/22 15:39 10/24/22 15:51 10/24/22 15:51 Temperature 97.6 F Pulse Rate 68 64 Respiratory Rate 16 13 Blood Pressure 119/65 172/74 H Pulse Oximetry 97 94 Oxygen Delivery Method Room Air 10/24/22 16:00 10/24/22 16:30 10/24/22 17:00 Temperature Pulse Rate 63 61 Respiratory Rate 11 L 12 Blood Pressure 142/64 H Pulse Oximetry 95 95 Oxygen Delivery Method 10/24/22 17:20 10/24/22 17:20 10/24/22 17:30 Temperature Pulse Rate 64 Respiratory Rate 14 Blood Pressure 192/79 H 176/72 H Pulse Oximetry 96 Oxygen Delivery Method 10/24/22 17:30 10/24/22 18:00 10/24/22 18:13 Temperature Pulse Rate 67 68 64 Respiratory Rate 15 14 Blood Pressure Pulse Oximetry 97 96 97 Oxygen Delivery Method Room Air 10/24/22 18:13 10/24/22 18:30 10/24/22 18:31 Temperature Pulse Rate 65 65 Respiratory Rate 13 12 Blood Pressure 193/81 H Pulse Oximetry 96 96 Oxygen Delivery Method 10/24/22 18:31 10/24/22 19:00 10/24/22 19:00 Temperature Pulse Rate 63 Respiratory Rate 11 L Blood Pressure 171/71 H 172/73 H Pulse Oximetry 94 Oxygen Delivery Method Room Air 10/24/22 19:30 10/24/22 19:31 10/24/22 19:31 Temperature Pulse Rate 69 67 Respiratory Rate 14 13 Blood Pressure 181/75 H Pulse Oximetry 97 97 Oxygen Delivery Method 10/24/22 20:00 10/24/22 20:00 10/24/22 20:30 Temperature Pulse Rate 65 Respiratory Rate 14 Blood Pressure 196/78 H 186/76 H Pulse Oximetry 96 Oxygen Delivery Method 10/24/22 20:30 Temperature Pulse Rate 63 Respiratory Rate 11 L Blood Pressure Pulse Oximetry 96 Oxygen Delivery Method <Cliff Whipple, DO - Last Filed: 10/24/22 17:05> Orders Ordered: ED Orders 10/24/22 16:11 CT kidney ureter bladder (KUB) Stat 10/24/22 16:15 CBC Auto Diff [Complete Blood Count AUTO DIFF] Stat CMP [Comprehensive Metabolic Panel] Stat CRP [C-Reactive Protein Quant] Stat Ketones (Beta-Hydroxybutyrate) Stat Lactate (Lactic Acid) Stat Lipase Stat Magnesium Stat 10/24/22 16:55 US renal complete Stat 10/24/22 17:45 Covid-19 + FLU A/B + RSV - PCR Stat 10/24/22 17:49 Venous Blood Gas Stat 10/24/22 18:07 Creatinine Urine Random Stat Sodium Urine Random Stat UA Complete [Urinalysis and Microscopic] Stat 10/24/22 20:03 BMP [Basic Metabolic Panel] Stat Acetaminophen (Acetaminophen 325 Mg Tablet) 650 mg PO Q6H PRN PRN Reason: Fever/Mild Pain (1-3) Albuterol (Albuterol 2.5 Mg/3 Ml Neb (Adult)) 2.5 mg INH Q6H PRN PRN Reason: shortness of breath or wheezing Aspirin (Aspirin Ec 81 Mg Tablet) 81 mg PO DAILY [facility] Budesonide (Budesonide 0.5 Mg/2 Ml Neb) 0.5 mg INH BID [facility] Clopidogrel Bisulfate (Clopidogrel 75 Mg Tablet) 75 mg PO DAILY [facility] Dextrose (Dextrose 50 % In Water 25 Gm/50 Ml Syringe) 25 gm IV PRN PRN PRN Reason: Hypoglycemia Heparin Sodium (Porcine) (Heparin 5,000 Unit/Ml Vial) 5,000 unit SUBCUT BID [facility] Sodium Chloride (Normal Saline 0.9%) 1,000 mls @ 150 mls/hr IV CONT [facility] Last Admin: 10/24/22 21:44 Dose: 150 mls/hr Documented By: AC Insulin Glargine (Insulin Glargine 100 Unit/Ml 3ml Pen) 25 unit SUBCUT BID [facility] Last Admin: 10/24/22 21:53 Dose: Not Given Documented By: CB Insulin Human Lispro (Insulin Lispro 100 Unit/Ml 3ml Vial) 0 unit SUBCUT ACHS [facility]; Protocol Metoprolol Tartrate (Metoprolol Ir 25 Mg Tablet) 12.5 mg PO BID [facility] Naloxone HCl (Naloxone 0.4 Mg/Ml Vial) 0.2 mg IV Q2MIN PRN PRN Reason: Opiate Reversal Nifedipine (Nifedipine 30 Mg Tab Er) 30 mg PO DAILY [facility] Ondansetron HCl (Ondansetron 4 Mg/2 Ml Inj) 4 mg IV Q8HR PRN PRN Reason: Nausea And Vomiting Discontinued Medications Hydromorphone HCl (Hydromorphone 0.5 Mg Inj) 0.5 mg IV NOW ONE Stop: 10/24/22 16:58 Last Admin: 10/24/22 17:08 Dose: 0.5 mg Documented By: SPF Hydromorphone HCl (Hydromorphone 0.5 Mg Inj) 0.5 mg IV NOW ONE Stop: 10/24/22 19:30 Last Admin: 10/24/22 20:11 Dose: 0.5 mg Documented By: MOON Sodium Chloride (Normal Saline 0.9%) 500 mls @ 1,000 mls/hr IV BOLUS ONE Stop: 10/24/22 17:24 Last Admin: 10/24/22 17:04 Dose: Not Given Documented By: MELISSA Sodium Chloride (Normal Saline 0.9%) 1,000 mls @ 1,000 mls/hr IV BOLUS ONE Stop: 10/24/22 18:01 Last Infusion: 10/24/22 19:04 Dose: 0 mls/hr Documented By: Admin: 10/24/22 17:09 Dose: 1,000 mls/hr Documented By: MALCOM Sodium Chloride (Normal Saline 0.9%) 1,000 mls @ 1,000 mls/hr IV BOLUS ONE Stop: 10/24/22 19:41 Last Infusion: 10/24/22 21:14 Dose: 0 mls/hr Documented By: Infusion: 10/24/22 19:04 Dose: 1,000 mls/hr Documented By: Infusion: 10/24/22 19:02 Dose: 0 mls/hr Documented By: Admin: 10/24/22 19:02 Dose: 1,000 mls/hr Documented By: ROBERTA POTASSIUM CHLORIDE IN WATER (Potassium Cl 10 Meq/100 Ml Jeri) 10 meq in 100 mls @ 100 mls/hr IV Q1H [facility] Stop: 10/24/22 21:14 Last Infusion: 10/24/22 21:22 Dose: 0 mls/hr Documented By: Admin: 10/24/22 20:33 Dose: 100 mls/hr Documented By: Infusion: 10/24/22 20:21 Dose: 100 mls/hr Documented By: Admin: 10/24/22 19:21 Dose: 100 mls/hr Documented By: MALCOM Ondansetron HCl (Ondansetron 4 Mg/2 Ml Inj) 4 mg IV NOW PRN PRN Reason: Nausea And Vomiting Last Admin: 10/24/22 17:10 Dose: 4 mg Documented By: MALCOM Potassium Chloride (Potassium Chloride 20 Meq/15 Ml Udc) 40 meq PO NOW ONE Stop: 10/24/22 17:18 Last Admin: 10/24/22 19:16 Dose: Not Given Documented By: SPF Vital Signs Vital signs: Vital Signs - 8 hr 10/24/22 15:39 10/24/22 15:51 10/24/22 15:51 Temperature 97.6 F Pulse Rate 68 64 Respiratory Rate 16 13 Blood Pressure 119/65 172/74 H Pulse Oximetry 97 94 Oxygen Delivery Method Room Air 10/24/22 16:00 10/24/22 16:30 10/24/22 17:00 Temperature Pulse Rate 63 61 Respiratory Rate 11 L 12 Blood Pressure 142/64 H Pulse Oximetry 95 95 Oxygen Delivery Method 10/24/22 17:20 10/24/22 17:20 10/24/22 17:30 Temperature Pulse Rate 64 Respiratory Rate 14 Blood Pressure 192/79 H 176/72 H Pulse Oximetry 96 Oxygen Delivery Method 10/24/22 17:30 10/24/22 18:00 10/24/22 18:13 Temperature Pulse Rate 67 68 64 Respiratory Rate 15 14 Blood Pressure Pulse Oximetry 97 96 97 Oxygen Delivery Method Room Air 10/24/22 18:13 10/24/22 18:30 10/24/22 18:31 Temperature Pulse Rate 65 65 Respiratory Rate 13 12 Blood Pressure 193/81 H Pulse Oximetry 96 96 Oxygen Delivery Method 10/24/22 18:31 10/24/22 19:00 10/24/22 19:00 Temperature Pulse Rate 63 Respiratory Rate 11 L Blood Pressure 171/71 H 172/73 H Pulse Oximetry 94 Oxygen Delivery Method Room Air 10/24/22 19:30 10/24/22 19:31 10/24/22 19:31 Temperature Pulse Rate 69 67 Respiratory Rate 14 13 Blood Pressure 181/75 H Pulse Oximetry 97 97 Oxygen Delivery Method 10/24/22 20:00 10/24/22 20:00 10/24/22 20:30 Temperature Pulse Rate 65 Respiratory Rate 14 Blood Pressure 196/78 H 186/76 H Pulse Oximetry 96 Oxygen Delivery Method 10/24/22 20:30 Temperature Pulse Rate 63 Respiratory Rate 11 L Blood Pressure Pulse Oximetry 96 Oxygen Delivery Method <Carlos Eduardo Miller DO - Last Filed: 10/24/22 23:33> Orders Ordered: ED Orders 10/24/22 16:11 CT kidney ureter bladder (KUB) Stat 10/24/22 16:15 CBC Auto Diff [Complete Blood Count AUTO DIFF] Stat CMP [Comprehensive Metabolic Panel] Stat CRP [C-Reactive Protein Quant] Stat Ketones (Beta-Hydroxybutyrate) Stat Lactate (Lactic Acid) Stat Lipase Stat Magnesium Stat 10/24/22 16:55 US renal complete Stat 10/24/22 17:45 Covid-19 + FLU A/B + RSV - PCR Stat 10/24/22 17:49 Venous Blood Gas Stat 10/24/22 18:07 Creatinine Urine Random Stat Sodium Urine Random Stat UA Complete [Urinalysis and Microscopic] Stat 10/24/22 20:03 BMP [Basic Metabolic Panel] Stat Acetaminophen (Acetaminophen 325 Mg Tablet) 650 mg PO Q6H PRN PRN Reason: Fever/Mild Pain (1-3) Albuterol (Albuterol 2.5 Mg/3 Ml Neb (Adult)) 2.5 mg INH Q6H PRN PRN Reason: shortness of breath or wheezing Aspirin (Aspirin Ec 81 Mg Tablet) 81 mg PO DAILY [facility] Budesonide (Budesonide 0.5 Mg/2 Ml Neb) 0.5 mg INH BID [facility] Clopidogrel Bisulfate (Clopidogrel 75 Mg Tablet) 75 mg PO DAILY [facility] Dextrose (Dextrose 50 % In Water 25 Gm/50 Ml Syringe) 25 gm IV PRN PRN PRN Reason: Hypoglycemia Heparin Sodium (Porcine) (Heparin 5,000 Unit/Ml Vial) 5,000 unit SUBCUT BID [facility] Sodium Chloride (Normal Saline 0.9%) 1,000 mls @ 150 mls/hr IV CONT [facility] Last Admin: 10/24/22 21:44 Dose: 150 mls/hr Documented By: AC Insulin Glargine (Insulin Glargine 100 Unit/Ml 3ml Pen) 25 unit SUBCUT BID [facility] Last Admin: 10/24/22 21:53 Dose: Not Given Documented By: CB Insulin Human Lispro (Insulin Lispro 100 Unit/Ml 3ml Vial) 0 unit SUBCUT ACHS [facility]; Protocol Metoprolol Tartrate (Metoprolol Ir 25 Mg Tablet) 12.5 mg PO BID [facility] Naloxone HCl (Naloxone 0.4 Mg/Ml Vial) 0.2 mg IV Q2MIN PRN PRN Reason: Opiate Reversal Nifedipine (Nifedipine 30 Mg Tab Er) 30 mg PO DAILY [facility] Ondansetron HCl (Ondansetron 4 Mg/2 Ml Inj) 4 mg IV Q8HR PRN PRN Reason: Nausea And Vomiting Discontinued Medications Hydromorphone HCl (Hydromorphone 0.5 Mg Inj) 0.5 mg IV NOW ONE Stop: 10/24/22 16:58 Last Admin: 10/24/22 17:08 Dose: 0.5 mg Documented By: MALCOM Hydromorphone HCl (Hydromorphone 0.5 Mg Inj) 0.5 mg IV NOW ONE Stop: 10/24/22 19:30 Last Admin: 10/24/22 20:11 Dose: 0.5 mg Documented By: MOON Sodium Chloride (Normal Saline 0.9%) 500 mls @ 1,000 mls/hr IV BOLUS ONE Stop: 10/24/22 17:24 Last Admin: 10/24/22 17:04 Dose: Not Given Documented By: MELISSA Sodium Chloride (Normal Saline 0.9%) 1,000 mls @ 1,000 mls/hr IV BOLUS ONE Stop: 10/24/22 18:01 Last Infusion: 10/24/22 19:04 Dose: 0 mls/hr Documented By: Admin: 10/24/22 17:09 Dose: 1,000 mls/hr Documented By: MALCOM Sodium Chloride (Normal Saline 0.9%) 1,000 mls @ 1,000 mls/hr IV BOLUS ONE Stop: 10/24/22 19:41 Last Infusion: 10/24/22 21:14 Dose: 0 mls/hr Documented By: Infusion: 10/24/22 19:04 Dose: 1,000 mls/hr Documented By: Infusion: 10/24/22 19:02 Dose: 0 mls/hr Documented By: Admin: 10/24/22 19:02 Dose: 1,000 mls/hr Documented By: ROBERTA POTASSIUM CHLORIDE IN WATER (Potassium Cl 10 Meq/100 Ml Jeri) 10 meq in 100 mls @ 100 mls/hr IV Q1H [facility] Stop: 10/24/22 21:14 Last Infusion: 10/24/22 21:22 Dose: 0 mls/hr Documented By: Admin: 10/24/22 20:33 Dose: 100 mls/hr Documented By: Infusion: 10/24/22 20:21 Dose: 100 mls/hr Documented By: Admin: 10/24/22 19:21 Dose: 100 mls/hr Documented By: MALCOM Ondansetron HCl (Ondansetron 4 Mg/2 Ml Inj) 4 mg IV NOW PRN PRN Reason: Nausea And Vomiting Last Admin: 10/24/22 17:10 Dose: 4 mg Documented By: MALCOM Potassium Chloride (Potassium Chloride 20 Meq/15 Ml Udc) 40 meq PO NOW ONE Stop: 10/24/22 17:18 Last Admin: 10/24/22 19:16 Dose: Not Given Documented By: MALCOM Vital Signs Vital signs: Vital Signs - 8 hr 10/24/22 15:39 10/24/22 15:51 10/24/22 15:51 Temperature 97.6 F Pulse Rate 68 64 Respiratory Rate 16 13 Blood Pressure 119/65 172/74 H Pulse Oximetry 97 94 Oxygen Delivery Method Room Air 10/24/22 16:00 10/24/22 16:30 10/24/22 17:00 Temperature Pulse Rate 63 61 Respiratory Rate 11 L 12 Blood Pressure 142/64 H Pulse Oximetry 95 95 Oxygen Delivery Method 10/24/22 17:20 10/24/22 17:20 10/24/22 17:30 Temperature Pulse Rate 64 Respiratory Rate 14 Blood Pressure 192/79 H 176/72 H Pulse Oximetry 96 Oxygen Delivery Method 10/24/22 17:30 10/24/22 18:00 10/24/22 18:13 Temperature Pulse Rate 67 68 64 Respiratory Rate 15 14 Blood Pressure Pulse Oximetry 97 96 97 Oxygen Delivery Method Room Air 10/24/22 18:13 10/24/22 18:30 10/24/22 18:31 Temperature Pulse Rate 65 65 Respiratory Rate 13 12 Blood Pressure 193/81 H Pulse Oximetry 96 96 Oxygen Delivery Method 10/24/22 18:31 10/24/22 19:00 10/24/22 19:00 Temperature Pulse Rate 63 Respiratory Rate 11 L Blood Pressure 171/71 H 172/73 H Pulse Oximetry 94 Oxygen Delivery Method Room Air 10/24/22 19:30 10/24/22 19:31 10/24/22 19:31 Temperature Pulse Rate 69 67 Respiratory Rate 14 13 Blood Pressure 181/75 H Pulse Oximetry 97 97 Oxygen Delivery Method 10/24/22 20:00 10/24/22 20:00 03/21/23 20:30 Temperature Pulse Rate 65 Respiratory Rate 14 Blood Pressure 196/78 H 186/76 H Pulse Oximetry 96 Oxygen Delivery Method 10/24/22 20:30 Temperature Pulse Rate 63 Respiratory Rate 11 L Blood Pressure Pulse Oximetry 96 Oxygen Delivery Method MDM - Nausea/Vomiting/Diarrhea <Montserrat Forte, [facility] - Last Filed: 10/24/22 20:09> Lab Data 10/24/22 16:15 10/24/22 20:03 Labs: Lab Results 10/24/22 10/24/22 10/24/22 Range/Units 16:15 16:15 16:15 WBC 6.8 (4.5-11.0) X10^3/uL RBC 3.91 L (4.0-5.2) X10^6/uL Hgb 11.1 L (12.0-16.0) g/dL Hct 34.1 L (36-46) % MCV 87.4 (80-100) fL MCH 28.3 (26-34) PG MCHC 32.4 (30-36) % RDW 17.5 H (11.6-14.8) % Plt Count 160 (150-400) X10^3/uL Neut % (Auto) 64.4 (50-75) % Lymph % (Auto) 25.0 (25-40) % [place] % (Auto) 9.6 (3-14) % Eos % (Auto) 0.7 L (2-4) % Baso % (Auto) 0.3 (0-2) % Neut # (Auto) 4400 (6539-1065) /uL Lymph # (Auto) 1700 (2806-8155) /uL [place] # (Auto) 700 (0-900) /uL Eos # (Auto) 0 (0-450) /uL Baso # (Auto) 0 (0-100) /uL VBG pH (7.33-7.43) VBG pCO2 (45-50) mmHg VBG pO2 (35-45) mmHg VBG HCO3 (24-28) mmol/L VBG Total CO2 (24-29) mmol/L VBG O2 Saturation (70-75) % VBG Base Excess (0-4) mmol/L FiO2 Sodium 143 (137-145) mmol/L Potassium 3.0 L (3.4-5.1) mmol/L Chloride 110 H (98-107) mmol/L Carbon Dioxide 20 L (22-32) mmol/L BUN 49 H (7-17) mg/dL Creatinine 6.61 H (0.52-1.04) mg/dL Estimated GFR 7 L (>60) mL/min BUN/Creatinine Ratio 7.4 (6-22) Glucose 119 H (70-100) mg/dL Lactate 1.0 (0.7-2.1) mmol/L Calcium 8.0 L (8.4-10.2) mg/dL Magnesium 2.0 (1.6-2.3) mg/dL Total Bilirubin 0.7 (0.2-1.3) mg/dL AST 76 H (14-36) IU/L ALT 25 (<35) IU/L Alkaline Phosphatase 883 H (38-126) U/L C-Reactive Protein 5.8 H (<1.0) mg/dL Total Protein 7.7 (6.3-8.2) g/dL Albumin 3.6 (3.5-5.0) g/dL Globulin 4.1 (1.7-4.1) g/dL Albumin/Globulin Ratio 0.9 L (1.0-2.8) Lipase 1108 H (23-300) U/L Urine Color Urine Appearance Urine pH (4.5-8.0) Ur Specific [place] (1.000-1.035) Urine Protein (Negative) Urine Glucose (UA) (Negative) g/dL Urine Ketones (NEGATIVE) Urine Occult Blood (Negative) Urine Nitrate (Negative) Urine Bilirubin (NEGATIVE) Urine Urobilinogen (0.2) E.U./dL Ur Leukocyte Esterase (NEGATIVE) Urine RBC Urine WBC Ur Squamous Epith Cells Ur Transition Epith Cell Ur Renal Epithelial Cell Calcium Oxalate Crystal Uric Acid Crystals Triple Phos Crystals Other Crystals Amorphous Sediment Urine Bacteria Hyaline Casts Granular Casts RBC Casts WBC Casts Other Casts Urine Mucus Urine Trichomonas Urine Yeast Urine Sperm Ur Culture Indicated? Micro UA Comment Ur Random Sodium (30-90) mmol/L Urine Creatinine mg/dL Ketones 0.17 (<0.27) mmol/L SARS-CoV-2 (PCR) (Negative) Influenza A (RT-PCR) (NEGATIVE) Influenza B (RT-PCR) (NEGATIVE) RSV (PCR) (Negative) 10/24/22 10/24/22 10/24/22 Range/Units 17:45 17:49 18:07 WBC (4.5-11.0) X10^3/uL RBC (4.0-5.2) X10^6/uL Hgb (12.0-16.0) g/dL Hct (36-46) % MCV (80-100) fL MCH (26-34) PG MCHC (30-36) % RDW (11.6-14.8) % Plt Count (150-400) X10^3/uL Neut % (Auto) (50-75) % Lymph % (Auto) (25-40) % [place] % (Auto) (3-14) % Eos % (Auto) (2-4) % Baso % (Auto) (0-2) % Neut # (Auto) (6626-2384) /uL Lymph # (Auto) (7480-2588) /uL [place] # (Auto) (0-900) /uL Eos # (Auto) (0-450) /uL Baso # (Auto) (0-100) /uL VBG pH 7.28 L (7.33-7.43) VBG pCO2 38.3 L (45-50) mmHg VBG pO2 26 L (35-45) mmHg VBG HCO3 18 L (24-28) mmol/L VBG Total CO2 19 L (24-29) mmol/L VBG O2 Saturation 41 L (70-75) % VBG Base Excess -8.0 L (0-4) mmol/L FiO2 20 Sodium (137-145) mmol/L Potassium (3.4-5.1) mmol/L Chloride (98-107) mmol/L Carbon Dioxide (22-32) mmol/L BUN (7-17) mg/dL Creatinine (0.52-1.04) mg/dL Estimated GFR (>60) mL/min BUN/Creatinine Ratio (6-22) Glucose (70-100) mg/dL Lactate (0.7-2.1) mmol/L Calcium (8.4-10.2) mg/dL Magnesium (1.6-2.3) mg/dL Total Bilirubin (0.2-1.3) mg/dL AST (14-36) IU/L ALT (<35) IU/L Alkaline Phosphatase (38-126) U/L C-Reactive Protein (<1.0) mg/dL Total Protein (6.3-8.2) g/dL Albumin (3.5-5.0) g/dL Globulin (1.7-4.1) g/dL Albumin/Globulin Ratio (1.0-2.8) Lipase (23-300) U/L Urine Color Urine Appearance Urine pH (4.5-8.0) Ur Specific [place] (1.000-1.035) Urine Protein (Negative) Urine Glucose (UA) (Negative) g/dL Urine Ketones (NEGATIVE) Urine Occult Blood (Negative) Urine Nitrate (Negative) Urine Bilirubin (NEGATIVE) Urine Urobilinogen (0.2) E.U./dL Ur Leukocyte Esterase (NEGATIVE) Urine RBC Cancelled Urine WBC Cancelled Ur Squamous Epith Cells Cancelled Ur Transition Epith Cell Cancelled Ur Renal Epithelial Cell Cancelled Calcium Oxalate Crystal Cancelled Uric Acid Crystals Cancelled Triple Phos Crystals Cancelled Other Crystals Cancelled Amorphous Sediment Cancelled Urine Bacteria Cancelled Hyaline Casts Cancelled Granular Casts Cancelled RBC Casts Cancelled WBC Casts Cancelled Other Casts Cancelled Urine Mucus Cancelled Urine Trichomonas Cancelled Urine Yeast Cancelled Urine Sperm Cancelled Ur Culture Indicated? Cancelled Micro UA Comment Cancelled Ur Random Sodium (30-90) mmol/L Urine Creatinine mg/dL Ketones (<0.27) mmol/L SARS-CoV-2 (PCR) Positive H (Negative) Influenza A (RT-PCR) Flu a negative (NEGATIVE) Influenza B (RT-PCR) Flu b negative (NEGATIVE) RSV (PCR) Negative (Negative) 10/24/22 10/24/22 10/24/22 Range/Units 18:07 18:07 20:03 WBC (4.5-11.0) X10^3/uL RBC (4.0-5.2) X10^6/uL Hgb (12.0-16.0) g/dL Hct (36-46) % MCV (80-100) fL MCH (26-34) PG MCHC (30-36) % RDW (11.6-14.8) % Plt Count (150-400) X10^3/uL Neut % (Auto) (50-75) % Lymph % (Auto) (25-40) % [place] % (Auto) (3-14) % Eos % (Auto) (2-4) % Baso % (Auto) (0-2) % Neut # (Auto) (7224-3942) /uL Lymph # (Auto) (9742-7139) /uL [place] # (Auto) (0-900) /uL Eos # (Auto) (0-450) /uL Baso # (Auto) (0-100) /uL VBG pH (7.33-7.43) VBG pCO2 (45-50) mmHg VBG pO2 (35-45) mmHg VBG HCO3 (24-28) mmol/L VBG Total CO2 (24-29) mmol/L VBG O2 Saturation (70-75) % VBG Base Excess (0-4) mmol/L FiO2 Sodium 142 (137-145) mmol/L Potassium 4.6 D (3.4-5.1) mmol/L Chloride 117 H (98-107) mmol/L Carbon Dioxide 18 L (22-32) mmol/L BUN 44 H (7-17) mg/dL Creatinine 5.60 H (0.52-1.04) mg/dL Estimated GFR 8 L (>60) mL/min BUN/Creatinine Ratio 7.9 (6-22) Glucose 83 (70-100) mg/dL Lactate (0.7-2.1) mmol/L Calcium 6.8 L (8.4-10.2) mg/dL Magnesium (1.6-2.3) mg/dL Total Bilirubin (0.2-1.3) mg/dL AST (14-36) IU/L ALT (<35) IU/L Alkaline Phosphatase (38-126) U/L C-Reactive Protein (<1.0) mg/dL Total Protein (6.3-8.2) g/dL Albumin (3.5-5.0) g/dL Globulin (1.7-4.1) g/dL Albumin/Globulin Ratio (1.0-2.8) Lipase (23-300) U/L Urine Color Yellow Urine Appearance Clear Urine pH 6.5 (4.5-8.0) Ur Specific [place] 1.020 (1.000-1.035) Urine Protein 2+ H (Negative) Urine Glucose (UA) Negative (Negative) g/dL Urine Ketones Negative (NEGATIVE) Urine Occult Blood 3+ H (Negative) Urine Nitrate Negative (Negative) Urine Bilirubin Negative (NEGATIVE) Urine Urobilinogen 0.2 (0.2) E.U./dL Ur Leukocyte Esterase Negative (NEGATIVE) Urine RBC 1-5/hpf Urine WBC 0-1/hpf Ur Squamous Epith Cells 5-10 /hpf H Ur Transition Epith Cell Ur Renal Epithelial Cell Calcium Oxalate Crystal Uric Acid Crystals Triple Phos Crystals Other Crystals Amorphous Sediment Urine Bacteria None seen Hyaline Casts Granular Casts RBC Casts WBC Casts Other Casts Urine Mucus Urine Trichomonas Urine Yeast Urine Sperm Ur Culture Indicated? Cult not indicated Micro UA Comment Ur Random Sodium 56 (30-90) mmol/L Urine Creatinine 70.5 mg/dL Ketones (<0.27) mmol/L SARS-CoV-2 (PCR) (Negative) Influenza A (RT-PCR) (NEGATIVE) Influenza B (RT-PCR) (NEGATIVE) RSV (PCR) (Negative) Imaging Data CT scan - abdomen/pelvis: Radiologist's Impression: PROCEDURE:? CT KIDNEY URETER BLADDER (KUB) ? INDICATIONS:? Hx of diabetes and CKD, nausea vomiting and diarrhea x7 days ? TECHNIQUE:? Axial sections were acquired from the lung bases to the pubic symphysis.? Coronal and sagittal reformats were performed.? For radiation dose reduction, the following was used: ?automated exposure control, adjustment of mA and/or kV according to patient size.? ? COMPARISON:? [facility], CT, CT ABDOMEN PELVIS W CON, 10/06/2018, 14:09.? ? FINDINGS:? Image quality:? Good ? Lower chest:? [id number] lower lung airspace disease and atelectasis.? Coronary calcifications.? Small hiatal hernia. ? Solid organs:? Morphologic liver changes suggestive of chronic liver disease.? Gallbladder is absent.? Moderate dilation of the biliary tree post cholecystectomy, stable.? No pancreatic ductal dilation.? No splenomegaly.? No adrenal nodules.? No calcified renal stones are identified.? No hydronephrosis. ? Vessels and lymph nodes:? No abdominal aortic aneurysm.? No pathologic adenopathy by size criteria. ? Bowel and peritoneum:? No evidence of small bowel obstruction.? No pathologic ascites.? Appendix is within normal limits. ? Body wall:? Unremarkable ? Pelvis:? Bladder is under distended.? Hysterectomy. ? Bones:? No acute or suspicious osseous finding.? Leftward spinal curvature. ? IMPRESSION:? No acute abdominopelvic pathology.? Multiple incidental and likely nonacute findings as above. ? Partially visualized infectious or inflammatory lower lung airspace disease, and atelectasis.? Consider future imaging surveillance to assess for resolution. ? ? Dictated by: Nathan Barbosa M.D. on 10/24/2022 at 16:43 ? ? Approved by: Nathan Barbosa M.D. on 10/24/2022 at 16:50 ? Renal US: Radiologist's Impression: PROCEDURE:? US RENAL COMPLETE ? INDICATIONS:? ABNORMAL KIDNEY LABS. HISTORY OF CHRONIC KIDNEY DISEASE ? TECHNIQUE:? Real-time scanning was performed of the kidneys and bladder, with image documentation.? ? COMPARISON:? None. ? FINDINGS:? Kidneys:? Kidneys are normal in size.? Right kidney measures 9.4 cm long; left kidney measures 9.2 cm long.? Right renal cortical thickness is 0.9 cm; left renal cortical thickness is 0.9 cm.? Renal cortical echogenicity is mildly increased bilaterally.? No hydronephrosis or nephrolithiasis.? No suspicious solid mass lesions.? ? Bladder:? Pre-void bladder volume is 65 mL.? Patient unable to void at the time of the exam.? Pre-void images demonstrate no intraluminal masses or stones.? On pre-void images, bilateral ureteral jets are noted with color Doppler interrogation.? (Of note, ureteral jets may not be detectable in up to 25% of cases due to insufficient differences in specific gravity between ureteral and bladder urine).? ? Miscellaneous:? No free pelvic fluid.? ? IMPRESSION:? Mildly increased renal echogenicity can be seen in the setting of medical renal disease.? No hydronephrosis or nephrolithiasis.? ? ? Approved by: Jacky Cisneros M.D. on 10/24/2022 at 18:29? MDM Narrative Medical decision making narrative: Chief Complaint: nausea/vomiting, abd pain Independent historian: Patient Differential diagnoses include but are not limited to: Diabetic ketoacidosis, pancreatitis, perforated viscus, dehydration, acute on chronic renal failure, electrolyte abnormalities, nephrolithiasis, pyelonephritis, urinary tract infection, obstructive uropathy, acute hepatitis, acute viral process including COVID, influenza, urinary retention, post obstruction, ATN, glomerular nephritis I have independently reviewed the patient's vital signs and nursing notes as well as prior records if available. Pertinent lab findings reviewed: No leukocytosis, hemoglobin 11.1 and hematocrit of 34.1, these are stable compared with prior, potassium of 3.0, likely secondary to GI losses, normal glucose of 119, baseline creatinine of 2.0, today her creatinine is 6.61, BUN of 49, GFR of 7, AST of 76 and alkaline phosphatase of a 883, CRP is elevated at 5.8, lipase is significantly elevated for the patient at 11:08 all previous lipase levels are less than 250, ketones 0.17 this is not elevated. No lactic acidosis, lactate is 1.0, magnesium level is normal, total bilirubin is not elevated Pertinent Imaging reviewed: CT abdomen pelvis without acute abnormality Renal ultrasound shows mildly increased renal echogenicity seen in the setting medical renal disease, no hydronephrosis or nephrolithiasis. Clinical decision rules or scores evaluated: FENA calculated indicating intrinsic Course of care: Patient is presumably hypovolemic secondary to dehydration from vomiting. FENA is calculated at 3.7%, intrinsic 2 L of normal saline was ordered, pending 2nd BNP, suspect this is most likely related to her hypovolemia secondary to nausea vomiting dehydration. Hypokalemia is likely secondary to GI losses., patient is ambulatory with steady but slow gait, complaining of pain returning, treated with Dilaudid 0.5 mg. States this is helpful. Patient's color coater is Dr. uPga out of [facility] Social considerations that may affect disposition: none Questions are addressed and there is agreement with the plan and for follow-up. Patient is appropriate for outpatient management. MIPS: This encounter doesn't have any diagnosis' associated with MIPS criteria. <Cliff Whipple, DO - Last Filed: 10/24/22 17:05> Lab Data Labs: Lab Results 10/24/22 10/24/22 10/24/22 Range/Units 16:15 16:15 16:15 WBC 6.8 (4.5-11.0) X10^3/uL RBC 3.91 L (4.0-5.2) X10^6/uL Hgb 11.1 L (12.0-16.0) g/dL Hct 34.1 L (36-46) % MCV 87.4 (80-100) fL MCH 28.3 (26-34) PG MCHC 32.4 (30-36) % RDW 17.5 H (11.6-14.8) % Plt Count 160 (150-400) X10^3/uL Neut % (Auto) 64.4 (50-75) % Lymph % (Auto) 25.0 (25-40) % [place] % (Auto) 9.6 (3-14) % Eos % (Auto) 0.7 L (2-4) % Baso % (Auto) 0.3 (0-2) % Neut # (Auto) 4400 (8814-3773) /uL Lymph # (Auto) 1700 (1817-4935) /uL [place] # (Auto) 700 (0-900) /uL Eos # (Auto) 0 (0-450) /uL Baso # (Auto) 0 (0-100) /uL VBG pH (7.33-7.43) VBG pCO2 (45-50) mmHg VBG pO2 (35-45) mmHg VBG HCO3 (24-28) mmol/L VBG Total CO2 (24-29) mmol/L VBG O2 Saturation (70-75) % VBG Base Excess (0-4) mmol/L FiO2 Sodium 143 (137-145) mmol/L Potassium 3.0 L (3.4-5.1) mmol/L Chloride 110 H (98-107) mmol/L Carbon Dioxide 20 L (22-32) mmol/L BUN 49 H (7-17) mg/dL Creatinine 6.61 H (0.52-1.04) mg/dL Estimated GFR 7 L (>60) mL/min BUN/Creatinine Ratio 7.4 (6-22) Glucose 119 H (70-100) mg/dL Lactate 1.0 (0.7-2.1) mmol/L Calcium 8.0 L (8.4-10.2) mg/dL Magnesium 2.0 (1.6-2.3) mg/dL Total Bilirubin 0.7 (0.2-1.3) mg/dL AST 76 H (14-36) IU/L ALT 25 (<35) IU/L Alkaline Phosphatase 883 H (38-126) U/L C-Reactive Protein 5.8 H (<1.0) mg/dL Total Protein 7.7 (6.3-8.2) g/dL Albumin 3.6 (3.5-5.0) g/dL Globulin 4.1 (1.7-4.1) g/dL Albumin/Globulin Ratio 0.9 L (1.0-2.8) Lipase 1108 H (23-300) U/L Urine Color Urine Appearance Urine pH (4.5-8.0) Ur Specific [place] (1.000-1.035) Urine Protein (Negative) Urine Glucose (UA) (Negative) g/dL Urine Ketones (NEGATIVE) Urine Occult Blood (Negative) Urine Nitrate (Negative) Urine Bilirubin (NEGATIVE) Urine Urobilinogen (0.2) E.U./dL Ur Leukocyte Esterase (NEGATIVE) Urine RBC Urine WBC Ur Squamous Epith Cells Ur Transition Epith Cell Ur Renal Epithelial Cell Calcium Oxalate Crystal Uric Acid Crystals Triple Phos Crystals Other Crystals Amorphous Sediment Urine Bacteria Hyaline Casts Granular Casts RBC Casts WBC Casts Other Casts Urine Mucus Urine Trichomonas Urine Yeast Urine Sperm Ur Culture Indicated? Micro UA Comment Ur Random Sodium (30-90) mmol/L Urine Creatinine mg/dL Ketones 0.17 (<0.27) mmol/L SARS-CoV-2 (PCR) (Negative) Influenza A (RT-PCR) (NEGATIVE) Influenza B (RT-PCR) (NEGATIVE) RSV (PCR) (Negative) 10/24/22 10/24/22 10/24/22 Range/Units 17:45 17:49 18:07 WBC (4.5-11.0) X10^3/uL RBC (4.0-5.2) X10^6/uL Hgb (12.0-16.0) g/dL Hct (36-46) % MCV (80-100) fL MCH (26-34) PG MCHC (30-36) % RDW (11.6-14.8) % Plt Count (150-400) X10^3/uL Neut % (Auto) (50-75) % Lymph % (Auto) (25-40) % [place] % (Auto) (3-14) % Eos % (Auto) (2-4) % Baso % (Auto) (0-2) % Neut # (Auto) (7454-2030) /uL Lymph # (Auto) (1927-5933) /uL [place] # (Auto) (0-900) /uL Eos # (Auto) (0-450) /uL Baso # (Auto) (0-100) /uL VBG pH 7.28 L (7.33-7.43) VBG pCO2 38.3 L (45-50) mmHg VBG pO2 26 L (35-45) mmHg VBG HCO3 18 L (24-28) mmol/L VBG Total CO2 19 L (24-29) mmol/L VBG O2 Saturation 41 L (70-75) % VBG Base Excess -8.0 L (0-4) mmol/L FiO2 20 Sodium (137-145) mmol/L Potassium (3.4-5.1) mmol/L Chloride (98-107) mmol/L Carbon Dioxide (22-32) mmol/L BUN (7-17) mg/dL Creatinine (0.52-1.04) mg/dL Estimated GFR (>60) mL/min BUN/Creatinine Ratio (6-22) Glucose (70-100) mg/dL Lactate (0.7-2.1) mmol/L Calcium (8.4-10.2) mg/dL Magnesium (1.6-2.3) mg/dL Total Bilirubin (0.2-1.3) mg/dL AST (14-36) IU/L ALT (<35) IU/L Alkaline Phosphatase (38-126) U/L C-Reactive Protein (<1.0) mg/dL Total Protein (6.3-8.2) g/dL Albumin (3.5-5.0) g/dL Globulin (1.7-4.1) g/dL Albumin/Globulin Ratio (1.0-2.8) Lipase (23-300) U/L Urine Color Urine Appearance Urine pH (4.5-8.0) Ur Specific [place] (1.000-1.035) Urine Protein (Negative) Urine Glucose (UA) (Negative) g/dL Urine Ketones (NEGATIVE) Urine Occult Blood (Negative) Urine Nitrate (Negative) Urine Bilirubin (NEGATIVE) Urine Urobilinogen (0.2) E.U./dL Ur Leukocyte Esterase (NEGATIVE) Urine RBC Cancelled Urine WBC Cancelled Ur Squamous Epith Cells Cancelled Ur Transition Epith Cell Cancelled Ur Renal Epithelial Cell Cancelled Calcium Oxalate Crystal Cancelled Uric Acid Crystals Cancelled Triple Phos Crystals Cancelled Other Crystals Cancelled Amorphous Sediment Cancelled Urine Bacteria Cancelled Hyaline Casts Cancelled Granular Casts Cancelled RBC Casts Cancelled WBC Casts Cancelled Other Casts Cancelled Urine Mucus Cancelled Urine Trichomonas Cancelled Urine Yeast Cancelled Urine Sperm Cancelled Ur Culture Indicated? Cancelled Micro UA Comment Cancelled Ur Random Sodium (30-90) mmol/L Urine Creatinine mg/dL Ketones (<0.27) mmol/L SARS-CoV-2 (PCR) Positive H (Negative) Influenza A (RT-PCR) Flu a negative (NEGATIVE) Influenza B (RT-PCR) Flu b negative (NEGATIVE) RSV (PCR) Negative (Negative) 10/24/22 10/24/22 10/24/22 Range/Units 18:07 18:07 20:03 WBC (4.5-11.0) X10^3/uL RBC (4.0-5.2) X10^6/uL Hgb (12.0-16.0) g/dL Hct (36-46) % MCV (80-100) fL MCH (26-34) PG MCHC (30-36) % RDW (11.6-14.8) % Plt Count (150-400) X10^3/uL Neut % (Auto) (50-75) % Lymph % (Auto) (25-40) % [place] % (Auto) (3-14) % Eos % (Auto) (2-4) % Baso % (Auto) (0-2) % Neut # (Auto) (7988-0165) /uL Lymph # (Auto) (7259-0745) /uL [place] # (Auto) (0-900) /uL Eos # (Auto) (0-450) /uL Baso # (Auto) (0-100) /uL VBG pH (7.33-7.43) VBG pCO2 (45-50) mmHg VBG pO2 (35-45) mmHg VBG HCO3 (24-28) mmol/L VBG Total CO2 (24-29) mmol/L VBG O2 Saturation (70-75) % VBG Base Excess (0-4) mmol/L FiO2 Sodium 142 (137-145) mmol/L Potassium 4.6 D (3.4-5.1) mmol/L Chloride 117 H (98-107) mmol/L Carbon Dioxide 18 L (22-32) mmol/L BUN 44 H (7-17) mg/dL Creatinine 5.60 H (0.52-1.04) mg/dL Estimated GFR 8 L (>60) mL/min BUN/Creatinine Ratio 7.9 (6-22) Glucose 83 (70-100) mg/dL Lactate (0.7-2.1) mmol/L Calcium 6.8 L (8.4-10.2) mg/dL Magnesium (1.6-2.3) mg/dL Total Bilirubin (0.2-1.3) mg/dL AST (14-36) IU/L ALT (<35) IU/L Alkaline Phosphatase (38-126) U/L C-Reactive Protein (<1.0) mg/dL Total Protein (6.3-8.2) g/dL Albumin (3.5-5.0) g/dL Globulin (1.7-4.1) g/dL Albumin/Globulin Ratio (1.0-2.8) Lipase (23-300) U/L Urine Color Yellow Urine Appearance Clear Urine pH 6.5 (4.5-8.0) Ur Specific [place] 1.020 (1.000-1.035) Urine Protein 2+ H (Negative) Urine Glucose (UA) Negative (Negative) g/dL Urine Ketones Negative (NEGATIVE) Urine Occult Blood 3+ H (Negative) Urine Nitrate Negative (Negative) Urine Bilirubin Negative (NEGATIVE) Urine Urobilinogen 0.2 (0.2) E.U./dL Ur Leukocyte Esterase Negative (NEGATIVE) Urine RBC 1-5/hpf Urine WBC 0-1/hpf Ur Squamous Epith Cells 5-10 /hpf H Ur Transition Epith Cell Ur Renal Epithelial Cell Calcium Oxalate Crystal Uric Acid Crystals Triple Phos Crystals Other Crystals Amorphous Sediment Urine Bacteria None seen Hyaline Casts Granular Casts RBC Casts WBC Casts Other Casts Urine Mucus Urine Trichomonas Urine Yeast Urine Sperm Ur Culture Indicated? Cult not indicated Micro UA Comment Ur Random Sodium 56 (30-90) mmol/L Urine Creatinine 70.5 mg/dL Ketones (<0.27) mmol/L SARS-CoV-2 (PCR) (Negative) Influenza A (RT-PCR) (NEGATIVE) Influenza B (RT-PCR) (NEGATIVE) RSV (PCR) (Negative) <Carlos Eduardo Miller, DO - Last Filed: 10/24/22 23:33> Lab Data Labs: Lab Results 10/24/22 10/24/22 10/24/22 Range/Units 16:15 16:15 16:15 WBC 6.8 (4.5-11.0) X10^3/uL RBC 3.91 L (4.0-5.2) X10^6/uL Hgb 11.1 L (12.0-16.0) g/dL Hct 34.1 L (36-46) % MCV 87.4 (80-100) fL MCH 28.3 (26-34) PG MCHC 32.4 (30-36) % RDW 17.5 H (11.6-14.8) % Plt Count 160 (150-400) X10^3/uL Neut % (Auto) 64.4 (50-75) % Lymph % (Auto) 25.0 (25-40) % [place] % (Auto) 9.6 (3-14) % Eos % (Auto) 0.7 L (2-4) % Baso % (Auto) 0.3 (0-2) % Neut # (Auto) 4400 (5945-8580) /uL Lymph # (Auto) 1700 (1896-5219) /uL [place] # (Auto) 700 (0-900) /uL Eos # (Auto) 0 (0-450) /uL Baso # (Auto) 0 (0-100) /uL VBG pH (7.33-7.43) VBG pCO2 (45-50) mmHg VBG pO2 (35-45) mmHg VBG HCO3 (24-28) mmol/L VBG Total CO2 (24-29) mmol/L VBG O2 Saturation (70-75) % VBG Base Excess (0-4) mmol/L FiO2 Sodium 143 (137-145) mmol/L Potassium 3.0 L (3.4-5.1) mmol/L Chloride 110 H (98-107) mmol/L Carbon Dioxide 20 L (22-32) mmol/L BUN 49 H (7-17) mg/dL Creatinine 6.61 H (0.52-1.04) mg/dL Estimated GFR 7 L (>60) mL/min BUN/Creatinine Ratio 7.4 (6-22) Glucose 119 H (70-100) mg/dL Lactate 1.0 (0.7-2.1) mmol/L Calcium 8.0 L (8.4-10.2) mg/dL Magnesium 2.0 (1.6-2.3) mg/dL Total Bilirubin 0.7 (0.2-1.3) mg/dL AST 76 H (14-36) IU/L ALT 25 (<35) IU/L Alkaline Phosphatase 883 H (38-126) U/L C-Reactive Protein 5.8 H (<1.0) mg/dL Total Protein 7.7 (6.3-8.2) g/dL Albumin 3.6 (3.5-5.0) g/dL Globulin 4.1 (1.7-4.1) g/dL Albumin/Globulin Ratio 0.9 L (1.0-2.8) Lipase 1108 H (23-300) U/L Urine Color Urine Appearance Urine pH (4.5-8.0) Ur Specific [place] (1.000-1.035) Urine Protein (Negative) Urine Glucose (UA) (Negative) g/dL Urine Ketones (NEGATIVE) Urine Occult Blood (Negative) Urine Nitrate (Negative) Urine Bilirubin (NEGATIVE) Urine Urobilinogen (0.2) E.U./dL Ur Leukocyte Esterase (NEGATIVE) Urine RBC Urine WBC Ur Squamous Epith Cells Ur Transition Epith Cell Ur Renal Epithelial Cell Calcium Oxalate Crystal Uric Acid Crystals Triple Phos Crystals Other Crystals Amorphous Sediment Urine Bacteria Hyaline Casts Granular Casts RBC Casts WBC Casts Other Casts Urine Mucus Urine Trichomonas Urine Yeast Urine Sperm Ur Culture Indicated? Micro UA Comment Ur Random Sodium (30-90) mmol/L Urine Creatinine mg/dL Ketones 0.17 (<0.27) mmol/L SARS-CoV-2 (PCR) (Negative) Influenza A (RT-PCR) (NEGATIVE) Influenza B (RT-PCR) (NEGATIVE) RSV (PCR) (Negative) 10/24/22 10/24/22 10/24/22 Range/Units 17:45 17:49 18:07 WBC (4.5-11.0) X10^3/uL RBC (4.0-5.2) X10^6/uL Hgb (12.0-16.0) g/dL Hct (36-46) % MCV (80-100) fL MCH (26-34) PG MCHC (30-36) % RDW (11.6-14.8) % Plt Count (150-400) X10^3/uL Neut % (Auto) (50-75) % Lymph % (Auto) (25-40) % [place] % (Auto) (3-14) % Eos % (Auto) (2-4) % Baso % (Auto) (0-2) % Neut # (Auto) (4261-6188) /uL Lymph # (Auto) (5485-7698) /uL [place] # (Auto) (0-900) /uL Eos # (Auto) (0-450) /uL Baso # (Auto) (0-100) /uL VBG pH 7.28 L (7.33-7.43) VBG pCO2 38.3 L (45-50) mmHg VBG pO2 26 L (35-45) mmHg VBG HCO3 18 L (24-28) mmol/L VBG Total CO2 19 L (24-29) mmol/L VBG O2 Saturation 41 L (70-75) % VBG Base Excess -8.0 L (0-4) mmol/L FiO2 20 Sodium (137-145) mmol/L Potassium (3.4-5.1) mmol/L Chloride (98-107) mmol/L Carbon Dioxide (22-32) mmol/L BUN (7-17) mg/dL Creatinine (0.52-1.04) mg/dL Estimated GFR (>60) mL/min BUN/Creatinine Ratio (6-22) Glucose (70-100) mg/dL Lactate (0.7-2.1) mmol/L Calcium (8.4-10.2) mg/dL Magnesium (1.6-2.3) mg/dL Total Bilirubin (0.2-1.3) mg/dL AST (14-36) IU/L ALT (<35) IU/L Alkaline Phosphatase (38-126) U/L C-Reactive Protein (<1.0) mg/dL Total Protein (6.3-8.2) g/dL Albumin (3.5-5.0) g/dL Globulin (1.7-4.1) g/dL Albumin/Globulin Ratio (1.0-2.8) Lipase (23-300) U/L Urine Color Urine Appearance Urine pH (4.5-8.0) Ur Specific [place] (1.000-1.035) Urine Protein (Negative) Urine Glucose (UA) (Negative) g/dL Urine Ketones (NEGATIVE) Urine Occult Blood (Negative) Urine Nitrate (Negative) Urine Bilirubin (NEGATIVE) Urine Urobilinogen (0.2) E.U./dL Ur Leukocyte Esterase (NEGATIVE) Urine RBC Cancelled Urine WBC Cancelled Ur Squamous Epith Cells Cancelled Ur Transition Epith Cell Cancelled Ur Renal Epithelial Cell Cancelled Calcium Oxalate Crystal Cancelled Uric Acid Crystals Cancelled Triple Phos Crystals Cancelled Other Crystals Cancelled Amorphous Sediment Cancelled Urine Bacteria Cancelled Hyaline Casts Cancelled Granular Casts Cancelled RBC Casts Cancelled WBC Casts Cancelled Other Casts Cancelled Urine Mucus Cancelled Urine Trichomonas Cancelled Urine Yeast Cancelled Urine Sperm Cancelled Ur Culture Indicated? Cancelled Micro UA Comment Cancelled Ur Random Sodium (30-90) mmol/L Urine Creatinine mg/dL Ketones (<0.27) mmol/L SARS-CoV-2 (PCR) Positive H (Negative) Influenza A (RT-PCR) Flu a negative (NEGATIVE) Influenza B (RT-PCR) Flu b negative (NEGATIVE) RSV (PCR) Negative (Negative) 10/24/22 10/24/22 10/24/22 Range/Units 18:07 18:07 20:03 WBC (4.5-11.0) X10^3/uL RBC (4.0-5.2) X10^6/uL Hgb (12.0-16.0) g/dL Hct (36-46) % MCV (80-100) fL MCH (26-34) PG MCHC (30-36) % RDW (11.6-14.8) % Plt Count (150-400) X10^3/uL Neut % (Auto) (50-75) % Lymph % (Auto) (25-40) % [place] % (Auto) (3-14) % Eos % (Auto) (2-4) % Baso % (Auto) (0-2) % Neut # (Auto) (7577-4761) /uL Lymph # (Auto) (2969-4763) /uL [place] # (Auto) (0-900) /uL Eos # (Auto) (0-450) /uL Baso # (Auto) (0-100) /uL VBG pH (7.33-7.43) VBG pCO2 (45-50) mmHg VBG pO2 (35-45) mmHg VBG HCO3 (24-28) mmol/L VBG Total CO2 (24-29) mmol/L VBG O2 Saturation (70-75) % VBG Base Excess (0-4) mmol/L FiO2 Sodium 142 (137-145) mmol/L Potassium 4.6 D (3.4-5.1) mmol/L Chloride 117 H (98-107) mmol/L Carbon Dioxide 18 L (22-32) mmol/L BUN 44 H (7-17) mg/dL Creatinine 5.60 H (0.52-1.04) mg/dL Estimated GFR 8 L (>60) mL/min BUN/Creatinine Ratio 7.9 (6-22) Glucose 83 (70-100) mg/dL Lactate (0.7-2.1) mmol/L Calcium 6.8 L (8.4-10.2) mg/dL Magnesium (1.6-2.3) mg/dL Total Bilirubin (0.2-1.3) mg/dL AST (14-36) IU/L ALT (<35) IU/L Alkaline Phosphatase (38-126) U/L C-Reactive Protein (<1.0) mg/dL Total Protein (6.3-8.2) g/dL Albumin (3.5-5.0) g/dL Globulin (1.7-4.1) g/dL Albumin/Globulin Ratio (1.0-2.8) Lipase (23-300) U/L Urine Color Yellow Urine Appearance Clear Urine pH 6.5 (4.5-8.0) Ur Specific [place] 1.020 (1.000-1.035) Urine Protein 2+ H (Negative) Urine Glucose (UA) Negative (Negative) g/dL Urine Ketones Negative (NEGATIVE) Urine Occult Blood 3+ H (Negative) Urine Nitrate Negative (Negative) Urine Bilirubin Negative (NEGATIVE) Urine Urobilinogen 0.2 (0.2) E.U./dL Ur Leukocyte Esterase Negative (NEGATIVE) Urine RBC 1-5/hpf Urine WBC 0-1/hpf Ur Squamous Epith Cells 5-10 /hpf H Ur Transition Epith Cell Ur Renal Epithelial Cell Calcium Oxalate Crystal Uric Acid Crystals Triple Phos Crystals Other Crystals Amorphous Sediment Urine Bacteria None seen Hyaline Casts Granular Casts RBC Casts WBC Casts Other Casts Urine Mucus Urine Trichomonas Urine Yeast Urine Sperm Ur Culture Indicated? Cult not indicated Micro UA Comment Ur Random Sodium 56 (30-90) mmol/L Urine Creatinine 70.5 mg/dL Ketones (<0.27) mmol/L SARS-CoV-2 (PCR) (Negative) Influenza A (RT-PCR) (NEGATIVE) Influenza B (RT-PCR) (NEGATIVE) RSV (PCR) (Negative) MDM Narrative Medical decision making narrative: Chief Complaint: nausea/vomiting, abd pain Independent historian: Patient Differential diagnoses include but are not limited to: Diabetic ketoacidosis, pancreatitis, perforated viscus, dehydration, acute on chronic renal failure, electrolyte abnormalities, nephrolithiasis, pyelonephritis, urinary tract infection, obstructive uropathy, acute hepatitis, acute viral process including COVID, influenza, urinary retention, post obstruction, ATN, glomerular nephritis I have independently reviewed the patient's vital signs and nursing notes as well as prior records if available. Pertinent lab findings reviewed: No leukocytosis, hemoglobin 11.1 and hematocrit of 34.1, these are stable compared with prior, potassium of 3.0, likely secondary to GI losses, normal glucose of 119, baseline creatinine of 2.0, today her creatinine is 6.61, BUN of 49, GFR of 7, AST of 76 and alkaline phosphatase of a 883, CRP is elevated at 5.8, lipase is significantly elevated for the patient at 11:08 all previous lipase levels are less than 250, ketones 0.17 this is not elevated. No lactic acidosis, lactate is 1.0, magnesium level is normal, total bilirubin is not elevated Pertinent Imaging reviewed: CT abdomen pelvis without acute abnormality Renal ultrasound shows mildly increased renal echogenicity seen in the setting medical renal disease, no hydronephrosis or nephrolithiasis. Clinical decision rules or scores evaluated: FENA calculated indicating intrinsic Course of care: Patient is presumably hypovolemic secondary to dehydration from vomiting. FENA is calculated at 3.7%, intrinsic 2 L of normal saline was ordered, pending 2nd BNP, suspect this is most likely related to her hypovolemia secondary to nausea vomiting dehydration. Hypokalemia is likely secondary to GI losses., patient is ambulatory with steady but slow gait, complaining of pain returning, treated with Dilaudid 0.5 mg. States this is helpful. Patient's color coater is Dr. Puga out of [facility] Social considerations that may affect disposition: none Questions are addressed and there is agreement with the plan and for follow-up. Patient is appropriate for outpatient management. MIPS: This encounter doesn't have any diagnosis' associated with MIPS criteria. 2000 - received in sign out from INTERNATIONAL STUDENT COUNSELOR Crew. We have discussed patient history, physical and clinical course up until this point. Repeat labs pending. There has been some interval improvement in labs, specifically creatinine. Her story and exam would be most consistent with a pre-renal cause of TIMOTHY and imaging suggests against the likelihood of an obstructive uropathy. She denies calculated at 3.7% and does suggest intrinsic problem. Patient will require hospitalization for further stabilization and evaluation of her condition. Hospitalist is happy to accept. Discharge Plan Departure Patient Disposition: Admitted As Inpatient Clinical Impression: Hypokalemia, Acute kidney injury (TIMOTHY) with acute tubular necrosis (ATN), COVID-19, Nausea & vomiting, Acute dehydration Admit Date/Time: 10/24/22 20:44 Admit Provider: Mac Arcos <Cliff Whipple, DO - Last Filed: 10/24/22 17:05> Cosign ED Attending Cosignature Attestation: Dr Whipple Co-Sign Statement: I was available for consultation during this patient's emergency department visit. This chart is signed by myself for administrative purposes only. I did not have direct contact with this patient during this visit. They were seen independently by the APC.
[2022-10-24 16:25] LABS: Add Manual Diff / Slide Review NO; Basophils Absolute Auto 0 /uL (0-100); Basophils Percent Auto 0.3 % (0-2); Eosinophils Absolute Auto 0 /uL (0-450); Eosinophils Percent Auto 0.7 % (2-4); Hematocrit 34.1 % (36-46); Hemoglobin 11.1 g/dL (12.0-16.0); Lymphocytes Absolute Auto 1700 /uL (1100-4500); Mean Corpuscular HGB Conc 32.4 % (30-36); Mean Corpuscular Hemoglobin 28.3 PG (26-34); Mean Corpuscular Volume 87.4 fL (80-100); Monocytes Absolute Auto 700 /uL (0-900); Monocytes Percent Auto 9.6 % (3-14); Neutrophils Absolute Auto 4400 /uL (1500-7000); Neutrophils Percent Auto 64.4 % (50-75); Platelet Count 160 X10^3/uL (150-400); Red Blood Cell Count 3.91 X10^6/uL (4.0-5.2); Red Cell Distribution Width 17.5 % (11.6-14.8); White Blood Cell Count 6.8 X10^3/uL (4.5-11.0)
[2022-10-24 16:37] LABS: HEMOLYSIS < 15 (0-50)
[2022-10-24 16:44] LABS: Alanine Aminotransferase 25 IU/L (<35); Albumin 3.6 g/dL (3.5-5.0); Albumin Globulin Ratio 0.9 (1.0-2.8); Alkaline Phosphatase 883 U/L (38-126); Aspartate Aminotransferase 76 IU/L (14-36); BUN Creatinine Ratio 7.4 (6-22); Bilirubin Total 0.7 mg/dL (0.2-1.3); Blood Urea Nitrogen 49 mg/dL (7-17); C-Reactive Protein Quant 5.8 mg/dL (<1.0); Carbon Dioxide 20 mmol/L (22-32); Chloride 110 mmol/L (98-107); Estimated Glomerular Filt Rate 7 mL/min (>60); Globulin 4.1 g/dL (1.7-4.1); Glucose 119 mg/dL (70-100); Lipase 1108 U/L (23-300); Sodium 143 mmol/L (137-145); Total Protein 7.7 g/dL (6.3-8.2)
--- NOTE | 2022-10-24 16:55 | DI.US.S_ITS ---
PROCEDURE: US RENAL COMPLETE INDICATIONS: ABNORMAL KIDNEY LABS. HISTORY OF CHRONIC KIDNEY DISEASE TECHNIQUE: Real-time scanning was performed of the kidneys and bladder, with image documentation. COMPARISON: None. FINDINGS: Kidneys: Kidneys are normal in size. Right kidney measures 9.4 cm long; left kidney measures 9.2 cm long. Right renal cortical thickness is 0.9 cm; left renal cortical thickness is 0.9 cm. Renal cortical echogenicity is mildly increased bilaterally. No hydronephrosis or nephrolithiasis. No suspicious solid mass lesions. Bladder: Pre-void bladder volume is 65 mL. Patient unable to void at the time of the exam. Pre-void images demonstrate no intraluminal masses or stones. On pre-void images, bilateral ureteral jets are noted with color Doppler interrogation. (Of note, ureteral jets may not be detectable in up to 25% of cases due to insufficient differences in specific gravity between ureteral and bladder urine). Miscellaneous: No free pelvic fluid. IMPRESSION: Mildly increased renal echogenicity can be seen in the setting of medical renal disease. No hydronephrosis or nephrolithiasis. Approved by: Jacky Cisneros M.D. on 10/24/2022 at 18:29
[2022-10-24 16:57] LABS: Ketones (Beta-Hydroxybutyrate) 0.17 mmol/L (<0.27)
[2022-10-24] MEDS: HYDROMORPHONE 0.5 MG INJ IV ×2 (17:08→20:11)
[2022-10-24] MEDS: SODIUM CHLORIDE 0.9% 1,000 ML 1000 ML IV ×2 (17:09→19:02)
[2022-10-24] MEDS: ONDANSETRON 4 MG/2 ML INJ IV (17:10)
[2022-10-24 18:02] LABS: PCO2 VBG 38.3 mmHg (45-50)
[2022-10-24 18:03] LABS: Fractionated Inspired Oxygen 20; HCO3 VBG 18 mmol/L (24-28); Oxygen Saturation VBG 41 % (70-75); PO2 VBG 26 mmHg (35-45); Total CO2 VBG 19 mmol/L (24-29); pH VBG 7.28 (7.33-7.43)
[2022-10-24 18:13] LABS: Appearance Urine UA CLEAR; Bilirubin Urine UA NEGATIVE (NEGATIVE); Color Urine UA YELLOW; Glucose Urine UA NEGATIVE (Negative); Ketones Urine UA NEGATIVE (NEGATIVE); Leukocyte Esterase Urine UA NEGATIVE (NEGATIVE); Nitrite Urine UA NEGATIVE (Negative); Occult Blood Urine UA 3+ (Negative); Protein Urine UA 2+ (Negative); Urobilinogen Urine UA 0.2 E.U./dL (0.2)
[2022-10-24 18:22] LABS: pH Urine UA 6.5 (4.5-8.0)
[2022-10-24 18:29] LABS: Influenza A - CEPHEID Flu A NEGATIVE (NEGATIVE); Influenza B - CEPHEID Flu B NEGATIVE (NEGATIVE); Respiratory Syncytial Virus Negative (Negative)
[2022-10-24 18:33] LABS: Bacteria Urine None Seen; Culture Indicated Urine Cult Not Indicated; RBC Urine 1-5/HPF (0-5/HPF); Squamous Epithelial Cell Urine 5-10 /HPF (0-5/HPF); WBC Urine 0-1/HPF (0-5/HPF)
[2022-10-24 18:45] LABS: COVID-19 CEPHEID 4-PLEX PCR POSITIVE (Negative)
[2022-10-24 19:18] LABS: Creatinine Urine Random 70.5 mg/dL; Sodium Urine Random 56 mmol/L (30-90)
[2022-10-24] MEDS: POTASSIUM CHLORIDE IN WATER 10 MEQ/100 ML PIGGYBACK 100 MEQ IV ×2 (19:21→20:33)
[2022-10-24 20:21] LABS: BUN Creatinine Ratio 7.9 (6-22); Blood Urea Nitrogen 44 mg/dL (7-17); Calcium 6.8 mg/dL (8.4-10.2); Carbon Dioxide 18 mmol/L (22-32); Chloride 117 mmol/L (98-107); Estimated Glomerular Filt Rate 8 mL/min (>60); Glucose 83 mg/dL (70-100); HEMOLYSIS < 15 (0-50); Potassium 4.6 mmol/L (3.4-5.1); Sodium 142 mmol/L (137-145)
--- NOTE | 2022-10-24 21:15 | PM.HP.1 ---
History of Present Illness History of Present Illness Date Patient Seen: 10/24/22 Time Patient Seen: 21:00 Chief complaint: kidney pain, unable to eat Narrative: Ms. Cheryl Frey is a 57W with PMH CKD stage 4, Type dm on insulin, CAD, HTN, COPD who presents to the hospital nausea, vomiting, and poor appetite. She apparently has had some chronic issues with nausea and vomiting and there is a question if she has gastroparesis. She notes that her contracted COVID approximately two weeks ago. She started feeling ill about four days after that. She has had at least a week of abdominal symptoms as noted above, which include generalized abdominal discomfort. She has been vaccinated against COVID. She has no cough, or shortness of breath. She has no fevers/chills. She has started no new medications, and has not been taking nsaids. Of note she has been having worsening renal function and sees Dr. Frey with nephrology. She underwent a kidney biopsy in 09/2022 as she had noted proteinuria and the biopsy noted effacement of the foot processes to establish diagnosis of primary podocytopathy. She apparently had a plan for a repeat kidney biopsy which she had to miss due to being covid positive. In the ED workup was done, vitals notable for afebrile, heart rate in 60s. blood pressure 110s/60s. sats 97% on room air. Labs notable for WBC 6.8, hgb 11.1, plts 160. Na 143, k 3.0, co2 20, bun 49 ,creatinine 6.61. VBG with pH of 7.28. COVID positive. Urine sodium 56, urine creatinine 70.5. CT KUB with no acute process. Renal ultrasound with no hydronephrosis. She was given fluids and repeat creatinine was 5.6. 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) Diabetes mellitus (2003) Esophageal stricture (09/2017) Essential hypertension Fibromyalgia (06/24/15) Generalized anxiety disorder GERD (gastroesophageal reflux disease) (1980) GERD without esophagitis History of blood transfusion (~07/1981) Hyperlipidemia (1991) Hypertension (1991) Hypertensive urgency Influenza B Insomnia Kidney stones Lumbar spine pain Major depressive disorder, recurrent, moderate Medicare annual wellness visit, initial Menopausal symptoms Menopausal syndrome Mixed hyperlipidemia Obstructive sleep apnea Pancreatitis (2010) Polyneuropathy, unspecified Post-traumatic stress disorder, chronic Recurrent falls Right fibular fracture Sarcoidosis Scoliosis Shoulder pain Spinal stenosis Trichotillomania Type 2 diabetes mellitus with cardiac complication Type 2 diabetes mellitus with diabetic polyneuropathy (07/22/15) Vaginal atrophy Venous (peripheral) insufficiency Weakness of both legs Surgical History Anesthesia History of tonsillectomy (1967) S/P dilatation of esophageal stricture (09/2017) Status post cataract extraction Status post delivery (05/02/85) Status post cholecystectomy (02/1985) Status post hysterectomy (1986) Family & Social History Family History Brother Age: 65 Diabetes mellitus Child Age: 41 Asthma Child Heart defect Father Age: 85 Hypertension Cirrhosis of liver Mother Heart disease High cholesterol Amyloidosis Sister Age: 62 Diabetes mellitus Heart disease Sister Heart disease Social History: household members spouse Safety & Behavioral: Feels Safe in Current Yes Environment Been Physically Hurt or No Threatened By a Person Tobacco & Substance use: Smoking Status Former smoker alcohol intake never alcohol intake frequency holiday/special occasion Substance Use Type painkillers,prescription drug Meds Home Medications and Allergies Home Medications Medication Instructions Recorded Confirmed Type ketoconazole 2 % topical cream 1 nathan topical BID ##30 09/11/17 09/27/22 Rx dicyclomine 10 mg capsule 10 mg PO QIDP PRN Inflammation ##0 10/05/17 09/27/22 History cyclosporine 0.05 % eye drops in a 1 drp OPHTH BID ##0 11/09/17 09/27/22 History dropperette (Restasis) prenat.vits,jeremy,[id number] 1 tab PO DAILY 01/18/18 09/27/22 History insulin glargine 100 unit/mL (3 30 unit (0.3 mL) SUBCUT HS #1 mL 05/31/18 09/27/22 Rx mL) subcutaneous pen (Lantus Solostar U-100 Insulin) insulin lispro 100 unit/mL 10 - 15 unit (0.1 - 0.15 mL) 05/31/18 09/27/22 Rx subcutaneous pen (Humalog KwikPen SUBCUT ACHS ##1 (U-100) Insulin) nystatin-triamcinolone 100,000 See Rx Instructions topical BID 09/24/18 09/27/22 Rx unit/gram-0.1 % topical ointment #30 grams glucagon (human recombinant) 1 mg 1 mg SUBCUT Q20M PRN Hypoglycemia 10/06/18 09/27/22 History solution for injection (Glucagon Emergency Kit) fluticasone propionate 110 2 puff inhalation BID #1 inh 10/22/19 09/27/22 Rx mcg/actuation HFA aerosol inhaler (Flovent HFA) albuterol sulfate 2.5 mg/3 mL 2.5 mg (3 mL) inhalation Q6H PRN 03/12/20 09/27/22 Rx (0.083 %) solution for nebulization shortness of breath or wheezing #90 mL budesonide 0.5 mg/2 mL suspension 0.5 mg (2 mL) inhalation BID #360 07/16/20 09/27/22 Rx for nebulization mL ipratropium bromide 0.02 % 2.5 ml inhalation DAILY PRN 07/16/20 09/27/22 Rx solution for inhalation shortness of breath or wheezing #75 mL ondansetron 4 mg disintegrating 4 mg sublingual Q6HP PRN nausea 12/06/20 09/27/22 Rx tablet and vomiting #120 tabs aspirin 81 mg tablet,delayed 81 mg PO DAILY 03/21/21 09/27/22 History release clopidogrel 75 mg tablet 75 mg PO DAILY 03/21/21 09/27/22 History epinephrine 0.3 mg/0.3 mL 0.3 mg (0.3 mL) IM PRN PRN 03/21/21 09/27/22 Rx injection, auto-injector Anaphylaxis #1 ea metoprolol tartrate 25 mg tablet 12.5 mg PO BID 03/21/21 09/27/22 History nitroglycerin 0.4 mg sublingual 0.4 mg sublingual Q5-15M PRN 03/21/21 09/27/22 History tablet DISABLED PARKING PERMIT #1 ea 06/08/21 09/27/22 Rx sitagliptin phosphate 25 mg tablet 25 mg PO DAILY 07/27/21 09/27/22 History (Januvia) albuterol sulfate 90 mcg/actuation 1 puff inhalation Q6H PRN 10/24/21 09/27/22 Rx aerosol inhaler (Ventolin HFA) shortness of breath or wheezing #18 grams diphenhydramine HCl 25 mg tablet 12.5 mg PO BID PRN 12/14/21 09/27/22 History (Benadryl Allergy) nifedipine 30 mg tablet,extended 30 mg PO DAILY 12/14/21 09/27/22 History release pantoprazole 40 mg tablet,delayed 80 mg PO QAM #180 tabs 03/20/22 09/27/22 Rx release (Protonix) rosuvastatin 40 mg tablet 40 mg PO DAILY #90 tabs 03/20/22 09/27/22 Rx buprenorphine 8 mg-naloxone 2 mg 2 film buccal DAILY 03/22/22 09/27/22 History sublingual film (Suboxone) estradiol 0.5 mg tablet 0.5 mg PO DAILY #90 tabs 06/19/22 09/27/22 Rx atorvastatin 40 mg tablet 40 mg PO DAILY 06/21/22 09/27/22 History blood-glucose sensor (Dexcom G6 #3 ea 06/21/22 09/27/22 History Sensor device) tizanidine 4 mg tablet 4 mg PO Q8H PRN muscle spasticity 07/17/22 09/27/22 Rx #120 tabs estradiol 0.05 mg/24 hr semiweekly 1 patch transdermal 2XW #8 ea 08/30/22 09/27/22 Rx transdermal patch (Daria) quetiapine 50 mg tablet 100 mg PO BEDTIME #180 tabs 09/04/22 09/27/22 Rx vortioxetine 20 mg tablet 20 mg PO DAILY #90 tabs 09/04/22 09/27/22 Rx dextroamphetamine-amphetamine ER 5 5 mg PO QAM #30 caps 09/22/22 09/27/22 Rx mg 24hr capsule,extend release colchicine 0.6 mg tablet 0.6 mg PO BID #30 tabs 09/27/22 09/27/22 Rx torsemide 20 mg tablet 20 mg PO DAILY 09/27/22 09/27/22 History clonazepam 0.5 mg tablet 0.5 mg PO BID #60 tabs 10/04/22 10/04/22 Rx Allergies Allergy/AdvReac Type Severity Reaction Status Date / Time luciano Allergy Severe Anaphylaxis Verified 09/27/22 13:54 lidocaine Allergy Severe sanchez - Verified 09/27/22 13:54 rash venom-honey bee Allergy Severe SWOLLEN Verified 09/27/22 13:54 [bee venom (honey bee)] TONGUE AND THROAT BUT NOT ANAPHALAXIS pregabalin [From LYRICA] Allergy Intermediate 'WELTS ON Verified 09/27/22 13:54 MY BODY' cyclobenzaprine Allergy Unknown Verified 09/27/22 13:54 [From FLEXERIL] gabapentin Allergy Unknown MY Verified 09/27/22 13:54 THOUGHT IT MADE ME ACT WERID hydroxyzine AdvReac Unknown PT STATES Verified 09/27/22 13:54 EYES DRIES ME UP venlafaxine AdvReac Unknown MADE MY Verified 09/27/22 13:54 BLOOD PRESSURE HIGH trazodone AdvReac heart Verified 09/27/22 13:54 palpatations fake sugar Allergy Unknown blotchy Uncoded 09/27/22 13:54 Review of Systems Review of Systems Narrative: 14 systems reviewed and negative aside from what is noted in HPI Exam Vital Signs (past 8 hours): - 10/24/22 15:39 10/24/22 15:51 10/24/22 15:51 Temperature 97.6 F Pulse Rate 68 64 Respiratory Rate 16 13 Blood Pressure 119/65 172/74 H Pulse Oximetry 97 94 Oxygen Delivery Method Room Air 10/24/22 16:00 10/24/22 16:30 10/24/22 17:00 Temperature Pulse Rate 63 61 Respiratory Rate 11 L 12 Blood Pressure 142/64 H Pulse Oximetry 95 95 Oxygen Delivery Method 10/24/22 17:20 10/24/22 17:20 10/24/22 17:30 Temperature Pulse Rate 64 Respiratory Rate 14 Blood Pressure 192/79 H 176/72 H Pulse Oximetry 96 Oxygen Delivery Method 10/24/22 17:30 10/24/22 18:00 10/24/22 18:13 Temperature Pulse Rate 67 68 64 Respiratory Rate 15 14 Blood Pressure Pulse Oximetry 97 96 97 Oxygen Delivery Method Room Air 10/24/22 18:13 10/24/22 18:30 10/24/22 18:31 Temperature Pulse Rate 65 65 Respiratory Rate 13 12 Blood Pressure 193/81 H Pulse Oximetry 96 96 Oxygen Delivery Method 10/24/22 18:31 10/24/22 19:00 10/24/22 19:00 Temperature Pulse Rate 63 Respiratory Rate 11 L Blood Pressure 171/71 H 172/73 H Pulse Oximetry 94 Oxygen Delivery Method Room Air 10/24/22 19:30 10/24/22 19:31 10/24/22 19:31 Temperature Pulse Rate 69 67 Respiratory Rate 14 13 Blood Pressure 181/75 H Pulse Oximetry 97 97 Oxygen Delivery Method 10/24/22 20:00 10/24/22 20:00 10/24/22 20:30 Temperature Pulse Rate 65 Respiratory Rate 14 Blood Pressure 196/78 H 186/76 H Pulse Oximetry 96 Oxygen Delivery Method 10/24/22 20:30 10/24/22 21:00 10/24/22 21:01 Temperature Pulse Rate 63 75 74 Respiratory Rate 11 L 14 16 Blood Pressure Pulse Oximetry 96 94 97 Oxygen Delivery Method Oxygen Delivery Method Room Air Narrative Exam Narrative: GEN: no acute distress HEENT: dry mucous membranes, PERRL NECK: trachea midline, no JVD PULM: clear bilaterally, no wheezes, rhonchi, rales CV: regular rate and rhythm, no murmurs ABD: soft, nontender, nondistended, no organomegaly, normal bowel sounds EXT: warm and well perfused with no edema NEURO: awake, alert, oriented, no focal deficits Objective Labs 10/24/22 16:15 10/24/22 20:03 Labs: Laboratory Results - last 24 hr 10/24/22 10/24/22 10/24/22 16:15 16:15 16:15 WBC 6.8 RBC 3.91 L Hgb 11.1 L Hct 34.1 L MCV 87.4 MCH 28.3 MCHC 32.4 RDW 17.5 H Plt Count 160 Neut % (Auto) 64.4 Lymph % (Auto) 25.0 [place] % (Auto) 9.6 Eos % (Auto) 0.7 L Baso % (Auto) 0.3 Neut # (Auto) 4400 Lymph # (Auto) 1700 [place] # (Auto) 700 Eos # (Auto) 0 Baso # (Auto) 0 VBG pH VBG pCO2 VBG pO2 VBG HCO3 VBG Total CO2 VBG O2 Saturation VBG Base Excess FiO2 Sodium 143 Potassium 3.0 L Chloride 110 H Carbon Dioxide 20 L BUN 49 H Creatinine 6.61 H Estimated GFR 7 L BUN/Creatinine Ratio 7.4 Glucose 119 H Lactate 1.0 Calcium 8.0 L Magnesium 2.0 Total Bilirubin 0.7 AST 76 H ALT 25 Alkaline Phosphatase 883 H C-Reactive Protein 5.8 H Total Protein 7.7 Albumin 3.6 Globulin 4.1 Albumin/Globulin Ratio 0.9 L Lipase 1108 H Urine Color Urine Appearance Urine pH Ur Specific [place] Urine Protein Urine Glucose (UA) Urine Ketones Urine Occult Blood Urine Nitrate Urine Bilirubin Urine Urobilinogen Ur Leukocyte Esterase Urine RBC Urine WBC Ur Squamous Epith Cells Ur Transition Epith Cell Ur Renal Epithelial Cell Calcium Oxalate Crystal Uric Acid Crystals Triple Phos Crystals Other Crystals Amorphous Sediment Urine Bacteria Hyaline Casts Granular Casts RBC Casts WBC Casts Other Casts Urine Mucus Urine Trichomonas Urine Yeast Urine Sperm Ur Culture Indicated? Micro UA Comment Ur Random Sodium Urine Creatinine Ketones 0.17 SARS-CoV-2 (PCR) Influenza A (RT-PCR) Influenza B (RT-PCR) RSV (PCR) 10/24/22 10/24/22 10/24/22 17:45 17:49 18:07 WBC RBC Hgb Hct MCV MCH MCHC RDW Plt Count Neut % (Auto) Lymph % (Auto) [place] % (Auto) Eos % (Auto) Baso % (Auto) Neut # (Auto) Lymph # (Auto) [place] # (Auto) Eos # (Auto) Baso # (Auto) VBG pH 7.28 L VBG pCO2 38.3 L VBG pO2 26 L VBG HCO3 18 L VBG Total CO2 19 L VBG O2 Saturation 41 L VBG Base Excess -8.0 L FiO2 20 Sodium Potassium Chloride Carbon Dioxide BUN Creatinine Estimated GFR BUN/Creatinine Ratio Glucose Lactate Calcium Magnesium Total Bilirubin AST ALT Alkaline Phosphatase C-Reactive Protein Total Protein Albumin Globulin Albumin/Globulin Ratio Lipase Urine Color Urine Appearance Urine pH Ur Specific [place] Urine Protein Urine Glucose (UA) Urine Ketones Urine Occult Blood Urine Nitrate Urine Bilirubin Urine Urobilinogen Ur Leukocyte Esterase Urine RBC Cancelled Urine WBC Cancelled Ur Squamous Epith Cells Cancelled Ur Transition Epith Cell Cancelled Ur Renal Epithelial Cell Cancelled Calcium Oxalate Crystal Cancelled Uric Acid Crystals Cancelled Triple Phos Crystals Cancelled Other Crystals Cancelled Amorphous Sediment Cancelled Urine Bacteria Cancelled Hyaline Casts Cancelled Granular Casts Cancelled RBC Casts Cancelled WBC Casts Cancelled Other Casts Cancelled Urine Mucus Cancelled Urine Trichomonas Cancelled Urine Yeast Cancelled Urine Sperm Cancelled Ur Culture Indicated? Cancelled Micro UA Comment Cancelled Ur Random Sodium Urine Creatinine Ketones SARS-CoV-2 (PCR) Positive H Influenza A (RT-PCR) Flu a negative Influenza B (RT-PCR) Flu b negative RSV (PCR) Negative 10/24/22 10/24/22 10/24/22 18:07 18:07 20:03 WBC RBC Hgb Hct MCV MCH MCHC RDW Plt Count Neut % (Auto) Lymph % (Auto) [place] % (Auto) Eos % (Auto) Baso % (Auto) Neut # (Auto) Lymph # (Auto) [place] # (Auto) Eos # (Auto) Baso # (Auto) VBG pH VBG pCO2 VBG pO2 VBG HCO3 VBG Total CO2 VBG O2 Saturation VBG Base Excess FiO2 Sodium 142 Potassium 4.6 D Chloride 117 H Carbon Dioxide 18 L BUN 44 H Creatinine 5.60 H Estimated GFR 8 L BUN/Creatinine Ratio 7.9 Glucose 83 Lactate Calcium 6.8 L Magnesium Total Bilirubin AST ALT Alkaline Phosphatase C-Reactive Protein Total Protein Albumin Globulin Albumin/Globulin Ratio Lipase Urine Color Yellow Urine Appearance Clear Urine pH 6.5 Ur Specific [place] 1.020 Urine Protein 2+ H Urine Glucose (UA) Negative Urine Ketones Negative Urine Occult Blood 3+ H Urine Nitrate Negative Urine Bilirubin Negative Urine Urobilinogen 0.2 Ur Leukocyte Esterase Negative Urine RBC 1-5/hpf Urine WBC 0-1/hpf Ur Squamous Epith Cells 5-10 /hpf H Ur Transition Epith Cell Ur Renal Epithelial Cell Calcium Oxalate Crystal Uric Acid Crystals Triple Phos Crystals Other Crystals Amorphous Sediment Urine Bacteria None seen Hyaline Casts Granular Casts RBC Casts WBC Casts Other Casts Urine Mucus Urine Trichomonas Urine Yeast Urine Sperm Ur Culture Indicated? Cult not indicated Micro UA Comment Ur Random Sodium 56 Urine Creatinine 70.5 Ketones SARS-CoV-2 (PCR) Influenza A (RT-PCR) Influenza B (RT-PCR) RSV (PCR) Assessment & Plan Assessment & Plan narrative: 1. KATHERINE on CKD stage 4 -patient with baseline creatinine between 2-2.6, GFR in the 20s -is hypovolemic from vomiting, poor oral intake -has developed likely prerenal katherine vs atn -still urinating well in ED -fluids have improved creatinine from 6.6->5.6 -at this point no indication for urgent dialysis, no volume overload, no significant acidosis, hyperkalemia, or uremic symptoms -suspect with fluid resuscitation she will have good improvement in creatinine -monitor I/Os closely -continue IV fluids -if not improving will need transfer for dialysis 2. Nausea and vomiting, secondary to COVID -continue symptom control with iv fluids and anti-emetics -no sob or hypoxia, no indication currently for remdesivir or steroids -chest xray to further evaluate lung findings seen on ct scan -if she is not improving, consider the etiology as gastroparesis 3. Type 2 Diabetes on insulin -on 35U BID of lantus at home -with significant katherine and poor appetite will order 25U BID for now -ordered sliding scale -check glucose achs 4. Hypertension -continue metoprolol, nefidipine 5. COPD not in exacerbation -continue prn albuterol 6. CAD -continue aspirin, plavix, statin I have discussed plan and obtained history from patient and family at bedside. I have discussed plan of care with ED physician, bedside nurse. I have reviewed labs, ultraound, ct imaging, and previous medical progress notes. CODE: Full Proxy: Wilson Frey, Time Spent With Patient Critical Care time: I spent a total of [] minutes of critical care time on this patient's care today; this time is exclusive of procedural time. Quality [facility] - Meds 'Current medications' to include all prescriptions, [id number] products, herbals, cannabis/cannabidiol products, and vitamin/mineral/dietary (nutritional) supplements. I have utilized all available resources to obtain, update, or review the patient?s current medications. [If Yes, STOP here]: Yes
[2022-10-24] MEDS: SODIUM CHLORIDE 0.9% 1,000 ML 150 ML IV (21:44)
[2022-10-24 23:29] LABS: MRSA (Nasal) PCR Not Detected (Not Detect)
--- NOTE | 2022-10-24 23:51 | PC.NURSE ---
Pt arrived to floor around 2129. Pt A&Ox4, on room air breathing comfortably. Some slight flank pain noted, around where kidneys are, as well as some nausea. Pt currently resting comfortably in bed.
[2022-10-25] VITALS (34 sets, daily range): BP systolic 138–184; BP diastolic 63–110; PULSE 49–80; RESP 15–18; TEMP 35.9–36.7; O2SAT 91–99
[2022-10-25 00:51] LABS: BUN Creatinine Ratio 7.6 (6-22); Blood Urea Nitrogen 43 mg/dL (7-17); Calcium 7.2 mg/dL (8.4-10.2); Carbon Dioxide 16 mmol/L (22-32); Chloride 117 mmol/L (98-107); Estimated Glomerular Filt Rate 8 mL/min (>60); Glucose 89 mg/dL (70-100); HEMOLYSIS < 15 (0-50); Potassium 3.3 mmol/L (3.4-5.1); Sodium 142 mmol/L (137-145)
[2022-10-25] MEDS: ACETAMINOPHEN 325 MG TABLET 650 MG PO ×2 (00:52→17:56)
[2022-10-25] MEDS: SODIUM CHLORIDE 0.9% 1,000 ML 150 ML IV ×3 (04:40→17:59)
[2022-10-25 05:58] LABS: Add Manual Diff / Slide Review NO; Basophils Absolute Auto 0 /uL (0-100); Basophils Percent Auto 0.4 % (0-2); Eosinophils Absolute Auto 100 /uL (0-450); Eosinophils Percent Auto 1.2 % (2-4); Hematocrit 29.3 % (36-46); Hemoglobin 9.5 g/dL (12.0-16.0); Lymphocytes Absolute Auto 2200 /uL (1100-4500); Lymphocytes Percent Auto 37.2 % (25-40); Mean Corpuscular HGB Conc 32.2 % (30-36); Mean Corpuscular Hemoglobin 28.6 PG (26-34); Mean Corpuscular Volume 88.6 fL (80-100); Monocytes Absolute Auto 700 /uL (0-900); Monocytes Percent Auto 10.9 % (3-14); Neutrophils Absolute Auto 3000 /uL (1500-7000); Neutrophils Percent Auto 50.3 % (50-75); Platelet Count 134 X10^3/uL (150-400); Red Blood Cell Count 3.31 X10^6/uL (4.0-5.2); Red Cell Distribution Width 17.8 % (11.6-14.8)
[2022-10-25 06:01] LABS: BUN Creatinine Ratio 7.4 (6-22); Blood Urea Nitrogen 41 mg/dL (7-17); Calcium 7.3 mg/dL (8.4-10.2); Carbon Dioxide 18 mmol/L (22-32); Chloride 117 mmol/L (98-107); Estimated Glomerular Filt Rate 8 mL/min (>60); Glucose 77 mg/dL (70-100); HEMOLYSIS < 15 (0-50); Magnesium 1.7 mg/dL (1.6-2.3); Phosphorous 4.2 mg/dL (2.5-4.5); Potassium 3.4 mmol/L (3.4-5.1); Sodium 144 mmol/L (137-145)
[2022-10-25] MEDS: ASPIRIN EC 81 MG TABLET PO (08:32)
[2022-10-25] MEDS: METOPROLOL IR 25 MG TABLET 12.5 MG PO ×2 (08:32→21:00)
[2022-10-25] MEDS: NIFEdipine 30 MG TAB ER PO (08:32)
[2022-10-25] MEDS: CLOPIDOGREL 75 MG TABLET PO (08:32)
[2022-10-25] MEDS: INSULIN GLARGINE 100 UNIT/ML 3ML PEN 25 UNIT SUBCUT ×2 (08:33→21:10)
[2022-10-25] MEDS: HEPARIN 5,000 UNIT/ML VIAL 5000 UNIT SUBCUT ×2 (08:33→20:59)
--- NOTE | 2022-10-25 09:35 | PM.PN.1 ---
Subjective Subjective Interval history: Patient feels fine today. Requesting her home klonopin. Cr down to 5.5 with IVF from 6.5. NV better controlled today. Exam Vital Signs (past 8 hours): - 10/25/22 04:00 10/25/22 02:12 10/25/22 05:00 Temperature 97.6 F Pulse Rate 69 Respiratory Rate 18 Blood Pressure 146/63 H 138/66 Pulse Oximetry 93 94 Oxygen Delivery Method Room Air Oxygen Flow Rate 10/25/22 08:00 Temperature 97.7 F Pulse Rate 66 Respiratory Rate 15 Blood Pressure 169/69 H Pulse Oximetry 97 Oxygen Delivery Method Oxygen Flow Rate 0 Oxygen Delivery Method Room Air Oxygen Flow Rate 0 Narrative Exam Narrative: GEN: no acute distress, appears much older than stated age HEENT: dry mucous membranes, PERRL NECK: trachea midline, no JVD PULM: clear bilaterally, no wheezes, rhonchi, rales CV: regular rate and rhythm, no murmurs ABD: soft, nontender, nondistended, no organomegaly, normal bowel sounds EXT: warm and well perfused with no edema NEURO: awake, alert, oriented, no focal deficits Objective Labs 10/25/22 03:55 10/25/22 03:55 Labs: Laboratory Results - last 24 hr 10/24/22 10/24/22 10/24/22 16:15 16:15 16:15 WBC 6.8 RBC 3.91 L Hgb 11.1 L Hct 34.1 L MCV 87.4 MCH 28.3 MCHC 32.4 RDW 17.5 H Plt Count 160 Neut % (Auto) 64.4 Lymph % (Auto) 25.0 [place] % (Auto) 9.6 Eos % (Auto) 0.7 L Baso % (Auto) 0.3 Neut # (Auto) 4400 Lymph # (Auto) 1700 [place] # (Auto) 700 Eos # (Auto) 0 Baso # (Auto) 0 VBG pH VBG pCO2 VBG pO2 VBG HCO3 VBG Total CO2 VBG O2 Saturation VBG Base Excess FiO2 Sodium 143 Potassium 3.0 L Chloride 110 H Carbon Dioxide 20 L BUN 49 H Creatinine 6.61 H Estimated GFR 7 L BUN/Creatinine Ratio 7.4 Glucose 119 H Lactate 1.0 Calcium 8.0 L Phosphorus Magnesium 2.0 Total Bilirubin 0.7 AST 76 H ALT 25 Alkaline Phosphatase 883 H C-Reactive Protein 5.8 H Total Protein 7.7 Albumin 3.6 Globulin 4.1 Albumin/Globulin Ratio 0.9 L Lipase 1108 H Urine Color Urine Appearance Urine pH Ur Specific [place] Urine Protein Urine Glucose (UA) Urine Ketones Urine Occult Blood Urine Nitrate Urine Bilirubin Urine Urobilinogen Ur Leukocyte Esterase Urine RBC Urine WBC Ur Squamous Epith Cells Ur Transition Epith Cell Ur Renal Epithelial Cell Calcium Oxalate Crystal Uric Acid Crystals Triple Phos Crystals Other Crystals Amorphous Sediment Urine Bacteria Hyaline Casts Granular Casts RBC Casts WBC Casts Other Casts Urine Mucus Urine Trichomonas Urine Yeast Urine Sperm Ur Culture Indicated? Micro UA Comment Ur Random Sodium Urine Creatinine Nasal Screen MRSA (PCR) Ketones 0.17 SARS-CoV-2 (PCR) Influenza A (RT-PCR) Influenza B (RT-PCR) RSV (PCR) 10/24/22 10/24/22 10/24/22 17:45 17:49 18:07 WBC RBC Hgb Hct MCV MCH MCHC RDW Plt Count Neut % (Auto) Lymph % (Auto) [place] % (Auto) Eos % (Auto) Baso % (Auto) Neut # (Auto) Lymph # (Auto) [place] # (Auto) Eos # (Auto) Baso # (Auto) VBG pH 7.28 L VBG pCO2 38.3 L VBG pO2 26 L VBG HCO3 18 L VBG Total CO2 19 L VBG O2 Saturation 41 L VBG Base Excess -8.0 L FiO2 20 Sodium Potassium Chloride Carbon Dioxide BUN Creatinine Estimated GFR BUN/Creatinine Ratio Glucose Lactate Calcium Phosphorus Magnesium Total Bilirubin AST ALT Alkaline Phosphatase C-Reactive Protein Total Protein Albumin Globulin Albumin/Globulin Ratio Lipase Urine Color Urine Appearance Urine pH Ur Specific [place] Urine Protein Urine Glucose (UA) Urine Ketones Urine Occult Blood Urine Nitrate Urine Bilirubin Urine Urobilinogen Ur Leukocyte Esterase Urine RBC Cancelled Urine WBC Cancelled Ur Squamous Epith Cells Cancelled Ur Transition Epith Cell Cancelled Ur Renal Epithelial Cell Cancelled Calcium Oxalate Crystal Cancelled Uric Acid Crystals Cancelled Triple Phos Crystals Cancelled Other Crystals Cancelled Amorphous Sediment Cancelled Urine Bacteria Cancelled Hyaline Casts Cancelled Granular Casts Cancelled RBC Casts Cancelled WBC Casts Cancelled Other Casts Cancelled Urine Mucus Cancelled Urine Trichomonas Cancelled Urine Yeast Cancelled Urine Sperm Cancelled Ur Culture Indicated? Cancelled Micro UA Comment Cancelled Ur Random Sodium Urine Creatinine Nasal Screen MRSA (PCR) Ketones SARS-CoV-2 (PCR) Positive H Influenza A (RT-PCR) Flu a negative Influenza B (RT-PCR) Flu b negative RSV (PCR) Negative 10/24/22 10/24/22 10/24/22 18:07 18:07 20:03 WBC RBC Hgb Hct MCV MCH MCHC RDW Plt Count Neut % (Auto) Lymph % (Auto) [place] % (Auto) Eos % (Auto) Baso % (Auto) Neut # (Auto) Lymph # (Auto) [place] # (Auto) Eos # (Auto) Baso # (Auto) VBG pH VBG pCO2 VBG pO2 VBG HCO3 VBG Total CO2 VBG O2 Saturation VBG Base Excess FiO2 Sodium 142 Potassium 4.6 D Chloride 117 H Carbon Dioxide 18 L BUN 44 H Creatinine 5.60 H Estimated GFR 8 L BUN/Creatinine Ratio 7.9 Glucose 83 Lactate Calcium 6.8 L Phosphorus Magnesium Total Bilirubin AST ALT Alkaline Phosphatase C-Reactive Protein Total Protein Albumin Globulin Albumin/Globulin Ratio Lipase Urine Color Yellow Urine Appearance Clear Urine pH 6.5 Ur Specific [place] 1.020 Urine Protein 2+ H Urine Glucose (UA) Negative Urine Ketones Negative Urine Occult Blood 3+ H Urine Nitrate Negative Urine Bilirubin Negative Urine Urobilinogen 0.2 Ur Leukocyte Esterase Negative Urine RBC 1-5/hpf Urine WBC 0-1/hpf Ur Squamous Epith Cells 5-10 /hpf H Ur Transition Epith Cell Ur Renal Epithelial Cell Calcium Oxalate Crystal Uric Acid Crystals Triple Phos Crystals Other Crystals Amorphous Sediment Urine Bacteria None seen Hyaline Casts Granular Casts RBC Casts WBC Casts Other Casts Urine Mucus Urine Trichomonas Urine Yeast Urine Sperm Ur Culture Indicated? Cult not indicated Micro UA Comment Ur Random Sodium 56 Urine Creatinine 70.5 Nasal Screen MRSA (PCR) Ketones SARS-CoV-2 (PCR) Influenza A (RT-PCR) Influenza B (RT-PCR) RSV (PCR) 10/24/22 10/25/22 10/25/22 21:42 00:35 03:55 WBC 6.0 RBC 3.31 L Hgb 9.5 L Hct 29.3 L MCV 88.6 MCH 28.6 MCHC 32.2 RDW 17.8 H Plt Count 134 L Neut % (Auto) 50.3 Lymph % (Auto) 37.2 [place] % (Auto) 10.9 Eos % (Auto) 1.2 L Baso % (Auto) 0.4 Neut # (Auto) 3000 Lymph # (Auto) 2200 [place] # (Auto) 700 Eos # (Auto) 100 Baso # (Auto) 0 VBG pH VBG pCO2 VBG pO2 VBG HCO3 VBG Total CO2 VBG O2 Saturation VBG Base Excess FiO2 Sodium 142 Potassium 3.3 L D Chloride 117 H Carbon Dioxide 16 L BUN 43 H Creatinine 5.68 H Estimated GFR 8 L BUN/Creatinine Ratio 7.6 Glucose 89 Lactate Calcium 7.2 L Phosphorus Magnesium Total Bilirubin AST ALT Alkaline Phosphatase C-Reactive Protein Total Protein Albumin Globulin Albumin/Globulin Ratio Lipase Urine Color Urine Appearance Urine pH Ur Specific [place] Urine Protein Urine Glucose (UA) Urine Ketones Urine Occult Blood Urine Nitrate Urine Bilirubin Urine Urobilinogen Ur Leukocyte Esterase Urine RBC Urine WBC Ur Squamous Epith Cells Ur Transition Epith Cell Ur Renal Epithelial Cell Calcium Oxalate Crystal Uric Acid Crystals Triple Phos Crystals Other Crystals Amorphous Sediment Urine Bacteria Hyaline Casts Granular Casts RBC Casts WBC Casts Other Casts Urine Mucus Urine Trichomonas Urine Yeast Urine Sperm Ur Culture Indicated? Micro UA Comment Ur Random Sodium Urine Creatinine Nasal Screen MRSA (PCR) Not detected Ketones SARS-CoV-2 (PCR) Influenza A (RT-PCR) Influenza B (RT-PCR) RSV (PCR) 10/25/22 03:55 WBC RBC Hgb Hct MCV MCH MCHC RDW Plt Count Neut % (Auto) Lymph % (Auto) [place] % (Auto) Eos % (Auto) Baso % (Auto) Neut # (Auto) Lymph # (Auto) [place] # (Auto) Eos # (Auto) Baso # (Auto) VBG pH VBG pCO2 VBG pO2 VBG HCO3 VBG Total CO2 VBG O2 Saturation VBG Base Excess FiO2 Sodium 144 Potassium 3.4 Chloride 117 H Carbon Dioxide 18 L BUN 41 H Creatinine 5.51 H Estimated GFR 8 L BUN/Creatinine Ratio 7.4 Glucose 77 Lactate Calcium 7.3 L Phosphorus 4.2 Magnesium 1.7 Total Bilirubin AST ALT Alkaline Phosphatase C-Reactive Protein Total Protein Albumin Globulin Albumin/Globulin Ratio Lipase Urine Color Urine Appearance Urine pH Ur Specific [place] Urine Protein Urine Glucose (UA) Urine Ketones Urine Occult Blood Urine Nitrate Urine Bilirubin Urine Urobilinogen Ur Leukocyte Esterase Urine RBC Urine WBC Ur Squamous Epith Cells Ur Transition Epith Cell Ur Renal Epithelial Cell Calcium Oxalate Crystal Uric Acid Crystals Triple Phos Crystals Other Crystals Amorphous Sediment Urine Bacteria Hyaline Casts Granular Casts RBC Casts WBC Casts Other Casts Urine Mucus Urine Trichomonas Urine Yeast Urine Sperm Ur Culture Indicated? 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) Diabetes mellitus (2003) Esophageal stricture (09/2017) Essential hypertension Fibromyalgia (06/24/15) Generalized anxiety disorder GERD (gastroesophageal reflux disease) (1980) GERD without esophagitis History of blood transfusion (~07/1981) Hyperlipidemia (1991) Hypertension (1991) Hypertensive urgency Influenza B Insomnia Kidney stones Lumbar spine pain Major depressive disorder, recurrent, moderate Medicare annual wellness visit, initial Menopausal symptoms Menopausal syndrome Mixed hyperlipidemia Obstructive sleep apnea Pancreatitis (2010) Polyneuropathy, unspecified Post-traumatic stress disorder, chronic Recurrent falls Right fibular fracture Sarcoidosis Scoliosis Shoulder pain Spinal stenosis Trichotillomania Type 2 diabetes mellitus with cardiac complication Type 2 diabetes mellitus with diabetic polyneuropathy (07/22/15) Vaginal atrophy Venous (peripheral) insufficiency Weakness of both legs Surgical History Anesthesia History of tonsillectomy (1967) S/P dilatation of esophageal stricture (09/2017) Status post cataract extraction Status post delivery (05/02/85) Status post cholecystectomy (02/1985) Status post hysterectomy (1986) Family History Brother Age: 65 Diabetes mellitus Child Age: 41 Asthma Child Heart defect Father Age: 85 Hypertension Cirrhosis of liver Mother Heart disease High cholesterol Amyloidosis Sister Age: 62 Diabetes mellitus Heart disease Sister Heart disease Social History household members: spouse Smoking Status: Former smoker alcohol intake: never Assessment & Plan Assessment & Plan narrative: 1. TIMOTHY on CKD stage 4, improving -patient with baseline creatinine between 2-2.6, GFR in the 20s -is hypovolemic from vomiting, poor oral intake -has developed likely prerenal timothy vs atn -still urinating well in ED -fluids have improved creatinine from 6.6->5.5 -at this point no indication for urgent dialysis, no volume overload, no significant acidosis, hyperkalemia, or uremic symptoms -suspect with fluid resuscitation she will have good improvement in creatinine -monitor I/Os closely -continue IV fluids -if not improving will need transfer for dialysis -UA with 3+ blood and no RBC's concerning for rhabdo, but CK only 459 2. Nausea and vomiting, secondary to COVID, improving -continue symptom control with iv fluids and anti-emetics -no sob or hypoxia, no indication currently for remdesivir or steroids -chest xray to further evaluate lung findings seen on ct scan -if she is not improving, consider the etiology as gastroparesis -reglan PRN added 3. Type 2 Diabetes on insulin -on 35U BID of lantus at home -with significant timothy and poor appetite will order 25U BID for now -ordered sliding scale -check glucose achs -last A1c 13.1% in October 2018 -recheck A1c 4. Hypertension -continue metoprolol, nefidipine 5. COPD not in exacerbation -continue prn albuterol 6. CAD -continue aspirin, plavix, statin 7. Anxiety -continue klonopin BID CODE: Full Proxy: Wilsonphong Frey, Dispo: Home pending improvement in TIMOTHY. Time Spent With Patient Critical Care time: I spent a total of [] minutes of critical care time on this patient's care today; this time is exclusive of procedural time.
[2022-10-25 09:56] LABS: Creatine Kinase 459 U/L (30-135)
[2022-10-25] MEDS: BUDESONIDE 0.5 MG/2 ML NEB INH ×2 (10:31→21:10)
[2022-10-25] MEDS: METOCLOPRAMIDE 10 MG/2 ML INJ IV (11:05)
[2022-10-25] MEDS: BUPRENORPHINE/NALOXONE 8MG/2MG 1 TAB 2 TAB SL (12:22)
[2022-10-25] MEDS: clonazePAM 0.5 MG TABLET PO ×3 (12:22→21:01)
[2022-10-25 12:53] LABS: Hemoglobin A1C% w Est Avg Glu 6.9 % (4.0-6.0)
--- NOTE | 2022-10-25 13:41 | CM.DANOTE ---
Initial DCP Assessment Note Pt is a 57 yo female, [place] [facility]arrative: history of type 2 diabetes, chronic kidney disease, COPD and fibromyalgia, sarcoidosis, nephrolithiasis, CAD with stent placement, not currently on anticoagulation, gastroparesis who presents to the emergency department complaining of recent COVID infection 2 weeks ago, ongoing nausea with vomiting and difficulty keeping anything down over the last 7 days Patient admitted for management of TIMOTHY on CKD, N/V PCP: Jigar Bird Payer: Kylah/SALO MCCABE Reviewed chart, pt discussed in multidisciplinary rounds this morning. Expect transfer for dialysis if patient's kidney function does not improve; medical management here for now. Plan: Expect discharge home w/spouse when medically cleared, r/o need for HH, close outpatient follow up vs transfer if patient's kidney function deteriorates further KATELYN Brown Discharge Planning/Care Management Freq: Status: Active Protocol: Document 10/25/22 13:37 MONIE (Rec: 10/25/22 13:41 MONIE [id number]) Discharge Planning Assessment Assigned Rn Faculty KATELYN Sultana DPOA/Assigned Designee Name Wilson Frey, spouse Contact Information [phone] Advance Directives? No Advance Directives on File No History Provided By Patient,Medical Record Prior Living Arrangements House Household Members spouse Type of transporation used prior to Drives own vehicle admit Independent with ADL's No: Poor activity tolerance, Disabled Is patient alert and oriented? Yes Needs Assistance With Meal Prep,Managing Medications ,Home Chores / Shopping Comment Uses both cane and walker on occasion. Barriers to Discharge No Comment Home w/family expected. r/o need for HH closer to [place] Discharge Plan Home Transportation Arrangement Family to provide transport Additional Comment Home health ?
[2022-10-25] MEDS: ONDANSETRON 4 MG/2 ML INJ IV (17:01)
[2022-10-26] VITALS (26 sets, daily range): BP systolic 91–175; BP diastolic 50–87; PULSE 49–86; RESP 16–21; TEMP 36.1–37; O2SAT 83–100
[2022-10-26] MEDS: SODIUM CHLORIDE 0.9% 1,000 ML 150 ML IV (00:26)
[2022-10-26] MEDS: ACETAMINOPHEN 325 MG TABLET 650 MG PO ×2 (00:28→07:06)
[2022-10-26 04:53] LABS: Add Manual Diff / Slide Review NO; Basophils Absolute Auto 0 /uL (0-100); Basophils Percent Auto 0.3 % (0-2); Eosinophils Absolute Auto 100 /uL (0-450); Eosinophils Percent Auto 1.6 % (2-4); Hemoglobin 9.7 g/dL (12.0-16.0); Lymphocytes Absolute Auto 2300 /uL (1100-4500); Lymphocytes Percent Auto 36.8 % (25-40); Mean Corpuscular HGB Conc 32.4 % (30-36); Mean Corpuscular Hemoglobin 28.5 PG (26-34); Mean Corpuscular Volume 87.9 fL (80-100); Monocytes Absolute Auto 600 /uL (0-900); Monocytes Percent Auto 9.9 % (3-14); Neutrophils Absolute Auto 3200 /uL (1500-7000); Neutrophils Percent Auto 51.4 % (50-75); Platelet Count 139 X10^3/uL (150-400); Red Blood Cell Count 3.41 X10^6/uL (4.0-5.2); Red Cell Distribution Width 17.5 % (11.6-14.8); White Blood Cell Count 6.3 X10^3/uL (4.5-11.0)
[2022-10-26 04:59] LABS: BUN Creatinine Ratio 8.3 (6-22); Blood Urea Nitrogen 36 mg/dL (7-17); Calcium 7.3 mg/dL (8.4-10.2); Carbon Dioxide 17 mmol/L (22-32); Chloride 119 mmol/L (98-107); Estimated Glomerular Filt Rate 11 mL/min (>60); Glucose 57 mg/dL (70-100); HEMOLYSIS < 15 (0-50); Potassium 2.8 mmol/L (3.4-5.1); Sodium 145 mmol/L (137-145)
[2022-10-26] MEDS: POTASSIUM CHLORIDE 10 MEQ TAB PO (06:18)
[2022-10-26] MEDS: DEXTROSE 50 % IN WATER 25 GM/50 ML SYRINGE IV (06:18)
--- NOTE | 2022-10-26 07:16 | P.PN_ITS ---
Subjective Subjective Interval history: Patient in pain from her fibromyalgia today. Requesting her home zanaflex and pain medication. Cr down to 4.3 today from 5.5. Exam Vital Signs (past 8 hours): - 10/26/22 00:00 10/26/22 00:00 10/26/22 01:00 Temperature 97.0 F L 98.5 F Pulse Rate 56 L 56 L Respiratory Rate 18 18 Blood Pressure 109/55 L 109/55 L Pulse Oximetry 99 99 99 Oxygen Delivery Method Room Air Oxygen Flow Rate 0 0 10/26/22 04:00 10/26/22 05:00 Temperature 98.6 F Pulse Rate 63 Respiratory Rate 17 Blood Pressure 153/67 H Pulse Oximetry 97 97 Oxygen Delivery Method Room Air Oxygen Flow Rate 0 Oxygen Delivery Method Room Air Oxygen Flow Rate 0 Narrative Exam Narrative: GEN: no acute distress, appears much older than stated age HEENT: dry mucous membranes, PERRL NECK: trachea midline, no JVD PULM: clear bilaterally, no wheezes, rhonchi, rales CV: regular rate and rhythm, no murmurs ABD: soft, nontender, nondistended, no organomegaly, normal bowel sounds EXT: warm and well perfused with no edema NEURO: awake, alert, oriented, no focal deficits Objective Labs 10/26/22 03:35 10/26/22 03:35 Labs: Laboratory Results - last 24 hr 10/25/22 10/25/22 10/26/22 03:55 03:55 03:35 WBC 6.3 RBC 3.41 L Hgb 9.7 L Hct 30.0 L MCV 87.9 MCH 28.5 MCHC 32.4 RDW 17.5 H Plt Count 139 L Neut % (Auto) 51.4 Lymph % (Auto) 36.8 [place] % (Auto) 9.9 Eos % (Auto) 1.6 L Baso % (Auto) 0.3 Neut # (Auto) 3200 Lymph # (Auto) 2300 [place] # (Auto) 600 Eos # (Auto) 100 Baso # (Auto) 0 Sodium Potassium Chloride Carbon Dioxide BUN Creatinine Estimated GFR BUN/Creatinine Ratio Glucose Hemoglobin A1c 6.9 H Calcium Total Creatine Kinase 459 H 10/26/22 03:35 WBC RBC Hgb Hct MCV MCH MCHC RDW Plt Count Neut % (Auto) Lymph % (Auto) [place] % (Auto) Eos % (Auto) Baso % (Auto) Neut # (Auto) Lymph # (Auto) [place] # (Auto) Eos # (Auto) Baso # (Auto) Sodium 145 Potassium 2.8 L Chloride 119 H Carbon Dioxide 17 L BUN 36 H Creatinine 4.34 H Estimated GFR 11 L BUN/Creatinine Ratio 8.3 Glucose 57 L Hemoglobin A1c Calcium 7.3 L Total Creatine Kinase [facility] Medical History ADHD (attention deficit hyperactivity disorder) Age-related osteoporosis without current pathological fracture Anxiety Back pain Cataract Central sleep apnea Cervical cancer (1991) Chicken pox Chronic cough Chronic headaches Chronic kidney disease, stage 3b Chronic, continuous use of opioids COPD (chronic obstructive pulmonary disease) Coronary artery disease 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) Diabetes mellitus (2003) Esophageal stricture (09/2017) Essential hypertension Fibromyalgia (06/24/15) Generalized anxiety disorder GERD (gastroesophageal reflux disease) (1980) GERD without esophagitis History of blood transfusion (~07/1981) Hyperlipidemia (1991) Hypertension (1991) Hypertensive urgency Influenza B Insomnia Kidney stones Lumbar spine pain Major depressive disorder, recurrent, moderate Medicare annual wellness visit, initial Menopausal symptoms Menopausal syndrome Mixed hyperlipidemia Obstructive sleep apnea Pancreatitis (2010) Polyneuropathy, unspecified Post-traumatic stress disorder, chronic Recurrent falls Right fibular fracture Sarcoidosis Scoliosis Shoulder pain Spinal stenosis Trichotillomania Type 2 diabetes mellitus with cardiac complication Type 2 diabetes mellitus with diabetic polyneuropathy (07/22/15) Vaginal atrophy Venous (peripheral) insufficiency Weakness of both legs Surgical History Anesthesia History of tonsillectomy (1967) S/P dilatation of esophageal stricture (09/2017) Status post cataract extraction Status post delivery (05/02/85) Status post cholecystectomy (02/1985) Status post hysterectomy (1986) Family History Brother Age: 65 Diabetes mellitus Child Age: 41 Asthma Child Heart defect Father Age: 85 Hypertension Cirrhosis of liver Mother Heart disease High cholesterol Amyloidosis Sister Age: 62 Diabetes mellitus Heart disease Sister Heart disease Social History household members: spouse Smoking Status: Former smoker alcohol intake: never Assessment & Plan Assessment & Plan narrative: 1. TIMOTHY on CKD stage 4, improving -patient with baseline creatinine between 2-2.6, GFR in the 20s -is hypovolemic from vomiting, poor oral intake -has developed likely prerenal timothy vs atn -still urinating well in ED -fluids have improved creatinine from 6.6->5.5->4.3 -at this point no indication for urgent dialysis, no volume overload, no significant acidosis, hyperkalemia, or uremic symptoms -suspect with fluid resuscitation she will have good improvement in creatinine -monitor I/Os closely -continue IV fluids -if not improving will need transfer for dialysis -UA with 3+ blood and no RBC's concerning for rhabdo, but CK only 459 2. Nausea and vomiting, secondary to COVID, improving -continue symptom control with iv fluids and anti-emetics -no sob or hypoxia, no indication currently for remdesivir or steroids -chest xray to further evaluate lung findings seen on ct scan -if she is not improving, consider the etiology as gastroparesis -reglan PRN added 3. Type 2 Diabetes on insulin -on 35U BID of lantus at home -25 units lantus BID ordered, then lowered to 20 BID due to hypoglycemia -ordered sliding scale -check glucose achs -last A1c 13.1% in October 2018 -repeat A1c 6.9% 4. Hypertension -continue metoprolol, nefidipine 5. COPD not in exacerbation -continue prn albuterol 6. CAD -continue aspirin, plavix, statin 7. Anxiety -continue klonopin BID 8. Fibromyalgia -continue home zanaflex -norco PRN CODE: Full Proxy: Wilson Frey, Dispo: Home pending improvement in TIMOTHY. Likely 2 days.
[2022-10-26] MEDS: METOCLOPRAMIDE 10 MG/2 ML INJ IV (08:10)
[2022-10-26] MEDS: POTASSIUM CHLORIDE 20 MEQ TAB 40 MEQ PO (08:10)
[2022-10-26] MEDS: LACTATED RINGERS 1,000 ML 125 ML IV ×2 (08:10→15:54)
[2022-10-26] MEDS: CLOPIDOGREL 75 MG TABLET PO (08:24)
[2022-10-26] MEDS: METOPROLOL IR 25 MG TABLET 12.5 MG PO ×2 (08:24→21:55)
[2022-10-26] MEDS: HEPARIN 5,000 UNIT/ML VIAL 5000 UNIT SUBCUT ×2 (08:24→21:46)
[2022-10-26] MEDS: NIFEdipine 30 MG TAB ER PO (08:25)
[2022-10-26] MEDS: ASPIRIN EC 81 MG TABLET PO (08:25)
[2022-10-26] MEDS: clonazePAM 0.5 MG TABLET PO ×2 (08:26→21:46)
[2022-10-26] MEDS: BUPRENORPHINE/NALOXONE 8MG/2MG 1 TAB 2 TAB SL (08:28)
[2022-10-26] MEDS: ONDANSETRON 4 MG/2 ML INJ IV ×2 (08:43→16:48)
[2022-10-26] MEDS: ALBUTEROL 2.5 MG/3 ML NEB (ADULT) INH (09:40)
[2022-10-26] MEDS: BUDESONIDE 0.5 MG/2 ML NEB INH (09:40)
[2022-10-26] MEDS: TIZANIDINE 4 MG TABLET PO (14:28)
[2022-10-26] MEDS: HYDROCODONE/ACET 5/325 TABLET 1 TAB PO (14:28)
[2022-10-26] MEDS: ACETAMINOPHEN 325 MG TABLET PO (21:47)
[2022-10-26] MEDS: INSULIN GLARGINE 100 UNIT/ML 3ML PEN 10 UNIT SUBCUT (21:55)
[2022-10-27] VITALS (8 sets, daily range): BP systolic 104–158; BP diastolic 55–73; PULSE 52–74; RESP 16–22; TEMP 35.6–36.6; O2SAT 97–100
[2022-10-27] MEDS: LACTATED RINGERS 1,000 ML 125 ML IV (00:32)
[2022-10-27] MEDS: DEXTROSE 5%-0.9% NS 1,000 ML 125 ML IV ×2 (01:25→09:54)
--- NOTE | 2022-10-27 01:29 | PC.NURSE ---
Addendum entered by Angelica Nguyen R.N. 10/27/22 07:39: I agree with Nikia RNs assessment, documentations, and interventions. Addendum entered by Angelica Nguyen R.N. 10/27/22 07:38: I andrew vera Original Note: Checked pt's BG @ 0030 since Lantus dose change of 10 units @ 2100 was administered. Pt's BG 62, provider notified and changed Lantus to 5 units and changed IV fluids to 5%DNS. Gave pt gingerale and encouraged her to drink. Rechecked BG @ 0100, and it was 63. Will recheck again in 1 hour. Encouraged pt to drink gingerale again.
[2022-10-27] MEDS: HYDROCODONE/ACET 5/325 TABLET 1 TAB PO ×2 (03:24→09:54)
[2022-10-27] MEDS: DEXTROSE 50 % IN WATER 25 GM/50 ML SYRINGE IV (03:33)
[2022-10-27] MEDS: clonazePAM 0.5 MG TABLET PO ×3 (05:06→21:08)
[2022-10-27 05:13] LABS: Add Manual Diff / Slide Review NO; Basophils Absolute Auto 100 /uL (0-100); Eosinophils Absolute Auto 100 /uL (0-450); Eosinophils Percent Auto 2.5 % (2-4); Hematocrit 31.2 % (36-46); Hemoglobin 10.3 g/dL (12.0-16.0); Lymphocytes Absolute Auto 1500 /uL (1100-4500); Lymphocytes Percent Auto 28.4 % (25-40); Mean Corpuscular HGB Conc 33.1 % (30-36); Mean Corpuscular Hemoglobin 28.6 PG (26-34); Mean Corpuscular Volume 86.4 fL (80-100); Monocytes Absolute Auto 400 /uL (0-900); Monocytes Percent Auto 8.2 % (3-14); Neutrophils Absolute Auto 3200 /uL (1500-7000); Neutrophils Percent Auto 59.9 % (50-75); Platelet Count 135 X10^3/uL (150-400); Red Blood Cell Count 3.61 X10^6/uL (4.0-5.2); Red Cell Distribution Width 17.2 % (11.6-14.8); White Blood Cell Count 5.4 X10^3/uL (4.5-11.0)
[2022-10-27 05:25] LABS: BUN Creatinine Ratio 8.3 (6-22); Blood Urea Nitrogen 32 mg/dL (7-17); Calcium 7.4 mg/dL (8.4-10.2); Carbon Dioxide 18 mmol/L (22-32); Chloride 116 mmol/L (98-107); Estimated Glomerular Filt Rate 13 mL/min (>60); Glucose 82 mg/dL (70-100); HEMOLYSIS < 15 (0-50); Magnesium 1.4 mg/dL (1.6-2.3); Potassium 2.9 mmol/L (3.4-5.1); Sodium 144 mmol/L (137-145)
[2022-10-27] MEDS: MAGNESIUM SULFATE 2 GM/50 ML PIGGYBACK IV (06:29)
[2022-10-27] MEDS: POTASSIUM CHLORIDE IN WATER 10 MEQ/100 ML PIGGYBACK 100 MEQ IV ×4 (06:47→12:10)
--- NOTE | 2022-10-27 08:29 | PM.PN.1 ---
Subjective Subjective Interval history: Cr down to 3.8 today. Patient has no complaints and is now eating better without nausea. Exam Vital Signs (past 8 hours): - 10/27/22 01:00 10/27/22 03:23 10/27/22 05:00 Temperature 96.1 F L Pulse Rate 64 Respiratory Rate 18 Blood Pressure 158/67 H Pulse Oximetry 99 99 98 Oxygen Delivery Method Room Air Room Air Oxygen Flow Rate 0 0 Oxygen Delivery Method Room Air Oxygen Flow Rate 0 Narrative Exam Narrative: GEN: no acute distress, appears much older than stated age HEENT: dry mucous membranes, PERRL NECK: trachea midline, no JVD PULM: clear bilaterally, no wheezes, rhonchi, rales CV: regular rate and rhythm, no murmurs ABD: soft, nontender, nondistended, no organomegaly, normal bowel sounds EXT: warm and well perfused with no edema NEURO: awake, alert, oriented, no focal deficits Objective Labs 10/27/22 04:40 10/27/22 04:40 Labs: Laboratory Results - last 24 hr 10/27/22 10/27/22 10/27/22 04:40 04:40 04:40 WBC 5.4 RBC 3.61 L Hgb 10.3 L Hct 31.2 L MCV 86.4 MCH 28.6 MCHC 33.1 RDW 17.2 H Plt Count 135 L Neut % (Auto) 59.9 Lymph % (Auto) 28.4 [place] % (Auto) 8.2 Eos % (Auto) 2.5 Baso % (Auto) 1.0 Neut # (Auto) 3200 Lymph # (Auto) 1500 [place] # (Auto) 400 Eos # (Auto) 100 Baso # (Auto) 100 Sodium 144 Potassium 2.9 L Chloride 116 H Carbon Dioxide 18 L BUN 32 H Creatinine 3.84 H Estimated GFR 13 L BUN/Creatinine Ratio 8.3 Glucose 82 Calcium 7.4 L Magnesium 1.4 L PFSH Medical History ADHD (attention deficit hyperactivity disorder) Age-related osteoporosis without current pathological fracture Anxiety Back pain Cataract Central sleep apnea Cervical cancer (1991) Chicken pox Chronic cough Chronic headaches Chronic kidney disease, stage 3b Chronic, continuous use of opioids COPD (chronic obstructive pulmonary disease) Coronary artery disease 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) Diabetes mellitus (2003) Esophageal stricture (09/2017) Essential hypertension Fibromyalgia (06/24/15) Generalized anxiety disorder GERD (gastroesophageal reflux disease) (1980) GERD without esophagitis History of blood transfusion (~07/1981) Hyperlipidemia (1991) Hypertension (1991) Hypertensive urgency Influenza B Insomnia Kidney stones Lumbar spine pain Major depressive disorder, recurrent, moderate Medicare annual wellness visit, initial Menopausal symptoms Menopausal syndrome Mixed hyperlipidemia Obstructive sleep apnea Pancreatitis (2010) Polyneuropathy, unspecified Post-traumatic stress disorder, chronic Recurrent falls Right fibular fracture Sarcoidosis Scoliosis Shoulder pain Spinal stenosis Trichotillomania Type 2 diabetes mellitus with cardiac complication Type 2 diabetes mellitus with diabetic polyneuropathy (07/22/15) Vaginal atrophy Venous (peripheral) insufficiency Weakness of both legs Surgical History Anesthesia History of tonsillectomy (1967) S/P dilatation of esophageal stricture (09/2017) Status post cataract extraction Status post delivery (05/02/85) Status post cholecystectomy (02/1985) Status post hysterectomy (1986) Family History Brother Age: 65 Diabetes mellitus Child Age: 41 Asthma Child Heart defect Father Age: 85 Hypertension Cirrhosis of liver Mother Heart disease High cholesterol Amyloidosis Sister Age: 62 Diabetes mellitus Heart disease Sister Heart disease Social History household members: spouse Smoking Status: Former smoker alcohol intake: never Assessment & Plan Assessment & Plan narrative: 1. TIMOTHY on CKD stage 4, improving -patient with baseline creatinine between 2-2.6, GFR in the 20s -is hypovolemic from vomiting, poor oral intake -has developed likely prerenal timothy vs atn -still urinating well in ED -fluids have improved creatinine from 6.6->5.5->4.3->3.8 -at this point no indication for urgent dialysis, no volume overload, no significant acidosis, hyperkalemia, or uremic symptoms -UA with 3+ blood and no RBC's concerning for rhabdo, but CK only 459 2. Nausea and vomiting, secondary to COVID, improving -continue symptom control with iv fluids and anti-emetics -no sob or hypoxia, no indication currently for remdesivir or steroids -chest xray to further evaluate lung findings seen on ct scan -if she is not improving, consider the etiology as gastroparesis -reglan PRN added 3. Type 2 Diabetes on insulin -on 35U BID of lantus at home -25 units lantus BID ordered, then lowered to 20 BID due to hypoglycemia -ordered sliding scale -check glucose achs -last A1c 13.1% in October 2018 -repeat A1c 6.9% 4. Hypertension -continue metoprolol, nefidipine 5. COPD not in exacerbation -continue prn albuterol 6. CAD -continue aspirin, plavix, statin 7. Anxiety -continue klonopin BID 8. Fibromyalgia -continue home zanaflex -norco PRN CODE: Full Proxy: Wilson Victorinoe, Dispo: Home pending improvement in TIMOTHY. Likely on 10/28.
[2022-10-27] MEDS: BUDESONIDE 0.5 MG/2 ML NEB INH (08:31)
[2022-10-27] MEDS: BUPRENORPHINE/NALOXONE 8MG/2MG 1 TAB 2 TAB SL (09:53)
[2022-10-27] MEDS: METOPROLOL IR 25 MG TABLET 12.5 MG PO ×2 (09:53→21:08)
[2022-10-27] MEDS: HEPARIN 5,000 UNIT/ML VIAL 5000 UNIT SUBCUT ×2 (09:54→21:08)
[2022-10-27] MEDS: POTASSIUM CHLORIDE 20 MEQ TAB 40 MEQ PO ×2 (09:54→17:45)
[2022-10-27] MEDS: TIZANIDINE 4 MG TABLET PO (09:54)
[2022-10-27] MEDS: CLOPIDOGREL 75 MG TABLET PO (09:54)
[2022-10-27] MEDS: ASPIRIN EC 81 MG TABLET PO (09:54)
[2022-10-27] MEDS: NIFEdipine 30 MG TAB ER PO (10:04)
--- NOTE | 2022-10-27 11:50 | CM.DPNOTE ---
DCP Note Placed call into patient's room this morning to review DCP; Dr Wagner anticipates patient will be medically ready for discharge over the next 24-48 hrs. Patient confirms she lives w/spouse who works M-F and assists patient at night and over the weekend. Son assists primarily with transportation to and from doctor appts Patient has 82 YARON hours, YARON CM Halina (patient doesn't know last name) and hopes to have these hours increased. Family members are currently patient's paid caregivers. Patient has asked to have a female cg assigned and this has not been available so far Patient had been doing most ADLs slowly but independently until she started to get sick and felt much weaker than usual. Patient asks for more assist w/bathing and toileting Discussed home health services and patient agreeable, no agency preference. 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
--- NOTE | 2022-10-27 12:01 | CM.DPNOTE ---
Addendum entered by Shima Lopez 10/27/22 14:59: [facility] said he could not accept pt. due to insurance of [employer] (secondary). I called Zeenat from [facility] and she said they could accept patient with RN services starting next Sun., 09/03 earliest. I faxed her the clinicals and received fax conf. Shima Lopez CM Assist. Original Note: Sent Bryon Quiros email asking him to review pt/insurance for services; and to see if they can accept this patient for all services. Waiting for his response. Sent Jenise Belle Sue & Vanita a copy of this email. Shima Lopez CM Assist.
--- NOTE | 2022-10-27 12:31 | CM.DPNOTE ---
Faxed H&P, last PN and FS to [facility] to [phone]. Received fax conf. Shima Lopez CM Assist.
--- NOTE | 2022-10-27 14:29 | PT-IP ANOTE ---
Pt refused physical therapy evaluation. She is tired and recently back to bed. Will attempt evaluation again later.
[2022-10-28] VITALS (14 sets, daily range): BP systolic 112–143; BP diastolic 57–89; PULSE 39–77; RESP 16–21; TEMP 36.6–36.9; O2SAT 95–100
[2022-10-28 04:49] LABS: BUN Creatinine Ratio 8.4 (6-22); Blood Urea Nitrogen 30 mg/dL (7-17); Calcium 7.8 mg/dL (8.4-10.2); Carbon Dioxide 17 mmol/L (22-32); Chloride 118 mmol/L (98-107); Estimated Glomerular Filt Rate 14 mL/min (>60); Glucose 86 mg/dL (70-100); HEMOLYSIS < 15 (0-50); Magnesium 1.8 mg/dL (1.6-2.3); Sodium 143 mmol/L (137-145)
[2022-10-28 04:54] LABS: Add Manual Diff / Slide Review NO; Basophils Absolute Auto 0 /uL (0-100); Basophils Percent Auto 0.4 % (0-2); Eosinophils Absolute Auto 200 /uL (0-450); Eosinophils Percent Auto 2.4 % (2-4); Hematocrit 29.8 % (36-46); Hemoglobin 9.9 g/dL (12.0-16.0); Lymphocytes Absolute Auto 1600 /uL (1100-4500); Lymphocytes Percent Auto 21.2 % (25-40); Mean Corpuscular HGB Conc 33.2 % (30-36); Mean Corpuscular Hemoglobin 28.9 PG (26-34); Monocytes Absolute Auto 700 /uL (0-900); Monocytes Percent Auto 9.6 % (3-14); Neutrophils Absolute Auto 5100 /uL (1500-7000); Neutrophils Percent Auto 66.4 % (50-75); Platelet Count 141 X10^3/uL (150-400); Red Blood Cell Count 3.42 X10^6/uL (4.0-5.2); Red Cell Distribution Width 17.6 % (11.6-14.8); White Blood Cell Count 7.7 X10^3/uL (4.5-11.0)
[2022-10-28] MEDS: HEPARIN 5,000 UNIT/ML VIAL 5000 UNIT SUBCUT ×2 (08:23→21:02)
[2022-10-28] MEDS: clonazePAM 0.5 MG TABLET PO ×3 (08:23→21:00)
[2022-10-28] MEDS: BUPRENORPHINE/NALOXONE 8MG/2MG 1 TAB 2 TAB SL (08:23)
[2022-10-28] MEDS: ASPIRIN EC 81 MG TABLET PO (08:23)
[2022-10-28] MEDS: METOPROLOL IR 25 MG TABLET 12.5 MG PO ×2 (08:23→21:01)
[2022-10-28] MEDS: NIFEdipine 30 MG TAB ER PO (08:23)
[2022-10-28] MEDS: CLOPIDOGREL 75 MG TABLET PO (08:23)
[2022-10-28] MEDS: SODIUM CHLORIDE 0.9% FLUSH 10 ML IV ×2 (08:27→21:02)
[2022-10-28] MEDS: BUDESONIDE 0.5 MG/2 ML NEB INH ×2 (09:38→20:03)
--- NOTE | 2022-10-28 10:41 | CM.DPNOTE ---
Discharge Planning Note: Met with patient in room. She has had HH in past and familiar with. Sending referral to [facility] ([facility] not able to accept due to [employer]). She will return home to care of family and [facility] caregivers. Yesterday, CM sent request to them for a re-evaluation of her hours, currently has 82 hours per month. Plan: When medically cleared, home with [facility]. Family to transport. Contact [facility], send DCP Lorene Schulz RN/GOYOP
[2022-10-28] MEDS: TIZANIDINE 4 MG TABLET PO ×2 (12:31→21:01)
--- NOTE | 2022-10-28 14:14 | PT.IIE ---
Current Diagnoses Acute kidney failure, unspecified (10/24/22) Surgical History (Last Reviewed 10/24/22 @ 21:39 by Mac Arcos MD) Anesthesia History of tonsillectomy (1967) S/P dilatation of esophageal stricture (09/2017) Status post cataract extraction Status post delivery (05/02/85) Status post cholecystectomy (02/1985) Status post hysterectomy (1986) Medical History (Last Reviewed 10/24/22 @ 21:39 by Mac Arcos MD) ADHD (attention deficit hyperactivity disorder) Age-related osteoporosis without current pathological fracture Anxiety Back pain Cataract Central sleep apnea Cervical cancer (1991) Chicken pox Chronic cough Chronic headaches Chronic kidney disease, stage 3b Chronic, continuous use of opioids COPD (chronic obstructive pulmonary disease) Coronary artery disease 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) Diabetes mellitus (2003) Esophageal stricture (09/2017) Essential hypertension Fibromyalgia (06/24/15) Generalized anxiety disorder GERD (gastroesophageal reflux disease) (1980) GERD without esophagitis History of blood transfusion (~07/1981) Hyperlipidemia (1991) Hypertension (1991) Hypertensive urgency Influenza B Insomnia Kidney stones Lumbar spine pain Major depressive disorder, recurrent, moderate Medicare annual wellness visit, initial Menopausal symptoms Menopausal syndrome Mixed hyperlipidemia Obstructive sleep apnea Pancreatitis (2010) Polyneuropathy, unspecified Post-traumatic stress disorder, chronic Recurrent falls Right fibular fracture Sarcoidosis Scoliosis Shoulder pain Spinal stenosis Trichotillomania Type 2 diabetes mellitus with cardiac complication Type 2 diabetes mellitus with diabetic polyneuropathy (07/22/15) Vaginal atrophy Venous (peripheral) insufficiency Weakness of both legs Physical Therapy Inpatient Evaluation/Re-Eval M1 PT/OT-IP Prior Functional Status Start: 10/28/22 17:43 Freq: NEEDED Status: Active Protocol: Document 10/28/22 14:14 DLM (Rec: 10/28/22 17:57 DLM [id number]) Medical Review Prior Functional Status Medical History Reviewed Yes Diet/Fluid Consistency Regular Communication WFL Mobility and Gait She walks with a 4WW independently. Activities of Daily Living and IADL's Independent with basic ADL's. Her family helps with cooking, fuels sales representative, shopping. She reports her bilateral shoulder pain makes it hard to wash her hair. Prior Functional Level (Other details) Spouse works, her Son goes to school but is available to help her Social History Household Members spouse Living Arrangements House Number of Floors (Floors) One Floor Number of Stairs To Enter/Railing? 1-2 small steps Home Environment Standard Height Toilet,Tub/ Shower Home Equipment Four Wheel Walker,Straight Cane,Shower Seat without Backrest M2 PT-IP Current Condition Start: 10/28/22 17:43 Freq: NEEDED Status: Active Protocol: Document 10/28/22 14:14 DLM (Rec: 10/28/22 17:57 DLM [id number]) Physical Therapy Current Condition Current Condition Evaluation Date 10/28/22 Treatment Diagnosis TIMOTHY, COVID (+), impaired gait Onset Date 10/24/22 M3 PT-IP Subjective Start: 10/28/22 17:43 Freq: NEEDED Status: Active Protocol: Document 10/28/22 14:14 DLM (Rec: 10/28/22 17:57 DLM [id number]) Subjective Physical Therapy Visit Type Type Initial Evaluation Visit Start Time 13:40 Visit Stop Time 14:14 Total Visit Minutes 34 Number of SOLAR THERMAL TECHNICIAN Visits 0 Physical Therapy Visit Comments Patient Comments She reports she is feeling better Patient Goals Return home Therapy Pain Assessment Pain When Pain Assessed During Mobility Pain Present Pain Present Pain Reported Location generalized Intensity 4 Scale Used Numeric (0 - 10) Description Aching,With Movement M4 PT-IP Mobility and Gait Start: 10/28/22 17:43 Freq: NEEDED Status: Active Protocol: Document 10/28/22 14:14 DLM (Rec: 10/28/22 17:57 DLM [id number]) PT-Bed Mobility Assessment Rolling Level of Assist Independent Supine to Sit Supine to Sit Independent Sit to Supine Sit to Supine Independent Scooting Scooting to Edge of Bed Independent PT-Transfer Assessment Sit to and From Stand Sit to and from Stand Standby Assistance,Contact Guard Assistance,Use of Upper Extremities Equipment Transfer Assistive Device Gait Belt,Front Wheeled Walker Transfers Transfer Destination Bed,Chair Transfer Technique Stand Step Pivot Transfer Ability Level of Assist Standby Assistance,Contact Guard Assistance,Use of Upper Extremities Gait Assessment Gait Gait Assistance Required: Standby Assistance,Contact Guard Assist Distance (Feet) 40 Assistive Devices Assistive Device Gait Belt,Front Wheeled Walker Factors Limiting Gait Function Factors Limiting Gait Function Decreased Activity Tolerance, Decreased Strength,Pain PT-Balance Assessment Sitting Balance and Reactions Static Sitting Balance Ability Good Dynamic Sitting Balance Ability Good Standing Balance and Reactions Static Standing Balance Ability Good Dynamic Standing Balance Ability Good Device Used FWW M5 PT-IP Objective Assessments Start: 10/28/22 17:43 Freq: NEEDED Status: Active Protocol: Document 10/28/22 14:14 DLM (Rec: 10/28/22 17:57 DL [id number]) Orientation Orientation/Cognition Level of Alertness Alert Orientation Name,Age,Birthday,Month,Date, Year,Day of Week,Place, Situation Language Function Ability No Deficits Noted Safety Awareness Understands Safety Issues Memory Description No Deficits Noted Gross Range of Motion Upper Extremity ROM Assessment Bilaterally Impaired Impairments shoulder elevation to 90 degrees only with end range pain Lower Extremity ROM Assessment Within Functional Limits Strength Upper Extremity Strength Assessment Bilaterally Impaired Shoulder 3+/5 Elbow 4/5 Lower Extremity Strength Assessment Right Impaired Hip flex 4+/5 Knee 4/5 with pain Ankle DF 5/5 Coordination Assessment Gross Coordination Gross Coordination WNL Sensation Assessment Sensation Gross Sensation Right UE Impaired,Left UE Impaired,Right LE Impaired, Left LE Impaired Sensation Description Numbness,Tingling Comments Sensation Comments neuropathy in her feet and hands, she reports hx of dropping things easily due to impaired sensation Muscle Tone Muscle Tone WNL Yes M6 PT-IP Treatment Start: 10/28/22 17:43 Freq: NEEDED Status: Active Protocol: Document 10/28/22 14:14 DLM (Rec: 10/28/22 17:57 [facility] [id number]) Physical Therapy Treatment Education Education Provided Safety M7 PT-IP Assessment and Plan Start: 10/28/22 17:43 Freq: NEEDED Status: Active Protocol: Document 10/28/22 14:14 DLM (Rec: 10/28/22 17:57 [facility] [id number]) PT Summary Assessment and Plan Potential Rehabilitation Potential Good Status of Condition at Evaluation Evolving Summary Impairments Pain,ROM,Strength,Balance, Transfers,Gait,Activity Tolerance Assessment Summary Keila is alert and resting in bed. She reports feeling better now. No cough noted during therapy. She was able to get up and ambulate in her room with the FWW. She has increased back pain with standing and gait which is a chronic issue for her. She reports pain and fatigue limits her distance of gait this visit. She has been getting up to the recliner with nursing during the day. Pt is eager ot go home. She reports a good support system at home. Will plan for discharge home with assistance . Goals Bed Mobility Goal Independent Transfer Goal Independent,Front Wheeled Walker,Four Wheeled Walker Gait Goal Independent,Front Wheel Walker ,Four Wheel Walker Gait Distance 80 feet Other Goals SBA up/down 1-2 small steps with FWW/4WW Days to Meet Goals 2 Frequency of Treatment Frequency Of Treatment Once a Day Treatment Plan Physical Therapy Treatment Plan Transfer Training,Gait Training,Therapeutic Exercise, Balance Retraining,Discharge Planning,Neuromuscular Re-ed Precautions Other Precautions chronic back pain with scoliosis Recommendations To Nursing Amount of Assist Needed Standby Assistance Discharge Recommendations PT Discharge Recommendations Home with Assistance Other Discharge Recommendations she reports her Son and can assist her Transportation Needs at Discharge Private Vehicle
--- NOTE | 2022-10-28 20:12 | PM.PN.1 ---
Subjective Subjective Interval history: ?Patient has no complaints and is now continuing to eat better without nausea. Exam Vital Signs (past 8 hours): - 10/28/22 13:00 10/28/22 13:12 10/28/22 17:00 Temperature 98.2 F Pulse Rate 76 Respiratory Rate 17 Blood Pressure 128/60 Pulse Oximetry 98 99 99 Oxygen Delivery Method Room Air Room Air Oxygen Flow Rate 0 10/28/22 18:37 10/28/22 20:00 Temperature 98.5 F 97.8 F Pulse Rate 39 L 67 Respiratory Rate 18 20 Blood Pressure 143/66 H 112/57 L Pulse Oximetry 100 100 Oxygen Delivery Method Oxygen Flow Rate 0 Oxygen Delivery Method Room Air Oxygen Flow Rate 0 Narrative Exam Narrative: GEN: no acute distress, appears much older than stated age HEENT: dry mucous membranes, PERRL NECK: trachea midline, no JVD PULM: clear bilaterally, no wheezes, rhonchi, rales CV: regular rate and rhythm, no murmurs ABD: soft, nontender, nondistended, no organomegaly, normal bowel sounds EXT: warm and well perfused with no edema NEURO: awake, alert, oriented, no focal deficits Objective Labs 10/28/22 04:28 10/28/22 04:28 Labs: Laboratory Results - last 24 hr 10/28/22 10/28/22 10/28/22 04:28 04:28 04:28 WBC 7.7 RBC 3.42 L Hgb 9.9 L Hct 29.8 L MCV 87.0 MCH 28.9 MCHC 33.2 RDW 17.6 H Plt Count 141 L Neut % (Auto) 66.4 Lymph % (Auto) 21.2 L [place] % (Auto) 9.6 Eos % (Auto) 2.4 Baso % (Auto) 0.4 Neut # (Auto) 5100 Lymph # (Auto) 1600 [place] # (Auto) 700 Eos # (Auto) 200 Baso # (Auto) 0 Sodium 143 Potassium 4.0 Chloride 118 H Carbon Dioxide 17 L BUN 30 H Creatinine 3.57 H Estimated GFR 14 L BUN/Creatinine Ratio 8.4 Glucose 86 Calcium 7.8 L Magnesium 1.8 PFSH Medical History ADHD (attention deficit hyperactivity disorder) Age-related osteoporosis without current pathological fracture Anxiety Back pain Cataract Central sleep apnea Cervical cancer (1991) Chicken pox Chronic cough Chronic headaches Chronic kidney disease, stage 3b Chronic, continuous use of opioids COPD (chronic obstructive pulmonary disease) Coronary artery disease 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) Diabetes mellitus (2003) Esophageal stricture (09/2017) Essential hypertension Fibromyalgia (06/24/15) Generalized anxiety disorder GERD (gastroesophageal reflux disease) (1980) GERD without esophagitis History of blood transfusion (~07/1981) Hyperlipidemia (1991) Hypertension (1991) Hypertensive urgency Influenza B Insomnia Kidney stones Lumbar spine pain Major depressive disorder, recurrent, moderate Medicare annual wellness visit, initial Menopausal symptoms Menopausal syndrome Mixed hyperlipidemia Obstructive sleep apnea Pancreatitis (2010) Polyneuropathy, unspecified Post-traumatic stress disorder, chronic Recurrent falls Right fibular fracture Sarcoidosis Scoliosis Shoulder pain Spinal stenosis Trichotillomania Type 2 diabetes mellitus with cardiac complication Type 2 diabetes mellitus with diabetic polyneuropathy (07/22/15) Vaginal atrophy Venous (peripheral) insufficiency Weakness of both legs Surgical History Anesthesia History of tonsillectomy (1967) S/P dilatation of esophageal stricture (09/2017) Status post cataract extraction Status post delivery (05/02/85) Status post cholecystectomy (02/1985) Status post hysterectomy (1986) Family History Brother Age: 65 Diabetes mellitus Child Age: 41 Asthma Child Heart defect Father Age: 85 Hypertension Cirrhosis of liver Mother Heart disease High cholesterol Amyloidosis Sister Age: 62 Diabetes mellitus Heart disease Sister Heart disease Social History household members: spouse Smoking Status: Former smoker alcohol intake: never Assessment & Plan Assessment & Plan narrative: 1. TIMOTHY on CKD stage 4, improving -patient with baseline creatinine between 2-2.6, GFR in the 20s -is hypovolemic from vomiting, poor oral intake -has developed likely prerenal timothy vs atn -still urinating well -fluids have improved creatinine from 6.6->5.5->4.3->3.8 ->3.57 -at this point no indication for urgent dialysis, no volume overload, no significant acidosis, hyperkalemia, or uremic symptoms -UA with 3+ blood and no RBC's concerning for rhabdo, but CK only 459 2. Nausea and vomiting, secondary to COVID, improving -continue symptom control with iv fluids and anti-emetics -no sob or hypoxia, no indication currently for remdesivir or steroids -chest xray to further evaluate lung findings seen on ct scan -if she is not improving, consider the etiology as gastroparesis -reglan PRN added 3. Type 2 Diabetes on insulin -on 35U BID of lantus at home -25 units lantus BID ordered, then lowered to 20 BID due to hypoglycemia -ordered sliding scale -check glucose achs -last A1c 13.1% in October 2018 -repeat A1c 6.9% 4. Hypertension -continue metoprolol, nefidipine 5. COPD not in exacerbation -continue prn albuterol 6. CAD -continue aspirin, plavix, statin 7. Anxiety -continue klonopin BID 8. Fibromyalgia -continue home zanaflex -norco PRN CODE: Full Proxy: Wilson Frey,
[2022-10-28] MEDS: HYDROCODONE/ACET 5/325 TABLET 1 TAB PO (21:00)
[2022-10-28] MEDS: INSULIN LISPRO 100 UNIT/ML 3ML VIAL SUBCUT (21:09)
[2022-10-29] VITALS (8 sets, daily range): BP systolic 95–133; BP diastolic 51–71; PULSE 47–68; RESP 16–22; TEMP 36.3–36.6; O2SAT 97–100
[2022-10-29] MEDS: HYDROCODONE/ACET 5/325 TABLET 1 TAB PO (03:28)
[2022-10-29 05:03] LABS: BUN Creatinine Ratio 9.7 (6-22); Blood Urea Nitrogen 33 mg/dL (7-17); Calcium 7.7 mg/dL (8.4-10.2); Carbon Dioxide 18 mmol/L (22-32); Chloride 115 mmol/L (98-107); Estimated Glomerular Filt Rate 15 mL/min (>60); Glucose 126 mg/dL (70-100); HEMOLYSIS < 15 (0-50); Potassium 3.9 mmol/L (3.4-5.1); Sodium 140 mmol/L (137-145)
[2022-10-29] MEDS: HEPARIN 5,000 UNIT/ML VIAL 5000 UNIT SUBCUT (08:13)
[2022-10-29] MEDS: CLOPIDOGREL 75 MG TABLET PO (08:13)
[2022-10-29] MEDS: NIFEdipine 30 MG TAB ER PO (08:13)
[2022-10-29] MEDS: BUPRENORPHINE/NALOXONE 8MG/2MG 1 TAB 2 TAB SL (08:13)
[2022-10-29] MEDS: clonazePAM 0.5 MG TABLET PO (08:14)
[2022-10-29] MEDS: ASPIRIN EC 81 MG TABLET PO (08:14)
[2022-10-29] MEDS: METOPROLOL IR 25 MG TABLET 12.5 MG PO (08:14)
[2022-10-29] MEDS: SODIUM CHLORIDE 0.9% FLUSH 10 ML IV (08:26)
[2022-10-29] MEDS: TIZANIDINE 4 MG TABLET PO (09:42)
[2022-10-29] MEDS: BUDESONIDE 0.5 MG/2 ML NEB INH (09:49)
--- NOTE | 2022-10-29 11:54 | CM.DPC ---
Addendum entered by Tiffany Huerta 10/29/22 14:18: D/C summary faxed to [facility] and vm left with notification that patient discharged. HO Original Note: DCP/continued: Reviewed chart. Per provider current plan is for patient to d/c once HH can see her in the residence? BALLASTER and RN asked that patient be reviewed on medical need not timing of HH. Provider saw patient today and indicates that patient is medically stable to d/c. BALLASTER met briefly with spouse and bedside whom is in total agreement to d/c today. He reports that patient's private home health aide caregiver is their son. He get's paid by the state to care for patient at home. In addition, home health ordered through [facility] (per previous CM team notes). BALLASTER placed call to [facility] and left message indicating patient discharging today. Will fax d/c summary when it becomes available. Previous notes indicate they already have orders and F2F. [facility] brochure left with RN to include in d/c instructions. NO additional needs identified. P: Home today with HH arranged (scheduled to begin on 11-01 per previous notes) and caregiver. HO
--- NOTE | 2022-10-29 12:30 | P.DS_ITS ---
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, [employer] Discharge provider: Aliya Allen MD Summary Hospital Course Discharge Diagnosis: TIMOTHY on CKD stage 4 Nausea and vomiting, secondary to COVID Type 2 Diabetes on insulin Hypertension COPD not in exacerbation CAD Anxiety Fibromyalgia ADHD (attention deficit hyperactivity disorder) Age-related osteoporosis without current pathological fracture Cataract Central sleep apnea Cervical cancer (1991) Chicken pox Chronic cough Chronic headaches Chronic, continuous use of opioids 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) Esophageal stricture (09/2017) GERD (gastroesophageal reflux disease) (1980) GERD without esophagitis History of blood transfusion () Hyperlipidemia (1991) Insomnia Kidney stones Lumbar spine pain Major depressive disorder, recurrent, moderate Menopausal symptoms Obstructive sleep apnea Pancreatitis (2010) Polyneuropathy, unspecified Post-traumatic stress disorder, chronic Recurrent falls Right fibular fracture Scoliosis Shoulder pain Spinal stenosis Trichotillomania Type 2 diabetes mellitus with cardiac complication Type 2 diabetes mellitus with diabetic polyneuropathy (07/22/15) Vaginal atrophy Venous (peripheral) insufficiency Weakness of both legs History of tonsillectomy (1967) S/P dilatation of esophageal stricture (09/2017) Status post cataract extraction Status post delivery (05/02/85) Status post cholecystectomy (02/1985) Status post hysterectomy (1986) Hospital Course: Ms. Cheryl Frey is a 57W with PMH CKD stage 4, Type dm on insulin, CAD, HTN, COPD who presented to the hospital with nausea, vomiting, and poor appetite. She apparently has had some chronic issues with nausea and vomiting and there is a question if she has gastroparesis at baseline. She noted that her contracted COVID approximately two weeks prior to her presentation. She started feeling ill about four days after her 's COVID diagnosis. She has had at least a week of abdominal symptoms, which included generalized abdominal discomfort. She had been vaccinated against COVID. She had no cough, or shortness of breath. She had no fevers/chills. She had been started no new medications, and had not been taking nsaids. She had been having worsening renal function and sees Dr. Frey with nephrology. 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 She apparently had a plan for a repeat kidney biopsy which she had to miss due to being covid positive. Nausea vomiting as well as poor appetite improved during the hospital stay. Renal function continues to slowly improve. On the day of discharge creatinine 3.41 and GFR 15. GFR was as low as 8 on presentation. Patient's normal baseline GFR is approximately 20. Patient being discharged to home where family members provide supportive care and home health is scheduled to assess the patient on November 01, 2022. Status at Discharge Cognitive/behavioral status at discharge: at baseline, oriented Functional status at discharge: uses cane/walker Overall status at discharge: patient is progressing back to baseline Time Spent with Patient Time spent: Greater than 30 minutes Exam Vital Signs (past 8 hours): - 10/29/22 05:00 10/29/22 08:00 10/29/22 08:15 Temperature 98 F Pulse Rate 47 L 68 Respiratory Rate 16 Blood Pressure 111/56 L 133/71 Pulse Oximetry 98 100 100 Oxygen Delivery Method Room Air Oxygen Flow Rate 0 0 0 Fraction of Inspired Oxygen 10/29/22 09:50 10/29/22 09:00 10/29/22 09:00 Temperature Pulse Rate 60 Respiratory Rate 18 Blood Pressure Pulse Oximetry 100 100 Oxygen Delivery Method Room Air Room Air Room Air Oxygen Flow Rate 0 0 Fraction of Inspired Oxygen 21 Fraction of Inspired Oxygen 21 SaO2/FiO2 Ratio 476 Oxygen Delivery Method Room Air Oxygen Flow Rate 0 Narrative Exam Narrative: GEN: no acute distress, appears much older than stated age HEENT: dry mucous membranes, PERRL NECK: trachea midline, no JVD PULM: clear bilaterally, no wheezes, rhonchi, rales CV: regular rate and rhythm, no murmurs ABD: soft, nontender, nondistended, no organomegaly, normal bowel sounds EXT: warm and well perfused with no edema NEURO: awake, alert, oriented, no focal deficits Objective Labs 10/28/22 04:28 10/29/22 04:19 Labs: Laboratory Results - last 24 hr 10/29/22 04:19 Sodium 140 Potassium 3.9 Chloride 115 H Carbon Dioxide 18 L BUN 33 H Creatinine 3.41 H Estimated GFR 15 L BUN/Creatinine Ratio 9.7 Glucose 126 H Calcium 7.7 L PFSH Medical History ADHD (attention deficit hyperactivity disorder) Age-related osteoporosis without current pathological fracture Anxiety Back pain Cataract Central sleep apnea Cervical cancer (1991) Chicken pox Chronic cough Chronic headaches Chronic kidney disease, stage 3b Chronic, continuous use of opioids COPD (chronic obstructive pulmonary disease) Coronary artery disease 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) Diabetes mellitus (2003) Esophageal stricture (09/2017) Essential hypertension Fibromyalgia (06/24/15) Generalized anxiety disorder GERD (gastroesophageal reflux disease) (1980) GERD without esophagitis History of blood transfusion (~07/1981) Hyperlipidemia (1991) Hypertension (1991) Hypertensive urgency Influenza B Insomnia Kidney stones Lumbar spine pain Major depressive disorder, recurrent, moderate Medicare annual wellness visit, initial Menopausal symptoms Menopausal syndrome Mixed hyperlipidemia Obstructive sleep apnea Pancreatitis (2010) Polyneuropathy, unspecified Post-traumatic stress disorder, chronic Recurrent falls Right fibular fracture Sarcoidosis Scoliosis Shoulder pain Spinal stenosis Trichotillomania Type 2 diabetes mellitus with cardiac complication Type 2 diabetes mellitus with diabetic polyneuropathy (07/22/15) Vaginal atrophy Venous (peripheral) insufficiency Weakness of both legs Surgical History Anesthesia History of tonsillectomy (1967) S/P dilatation of esophageal stricture (09/2017) Status post cataract extraction Status post delivery (05/02/85) Status post cholecystectomy (02/1985) Status post hysterectomy (1986) Family History Brother Age: 65 Diabetes mellitus Child Age: 41 Asthma Child Heart defect Father Age: 85 Hypertension Cirrhosis of liver Mother Heart disease High cholesterol Amyloidosis Sister Age: 62 Diabetes mellitus Heart disease Sister Heart disease Social History household members: spouse Smoking Status: Former smoker alcohol intake: never Discharge Plan Discharge Plan Patient Disposition: Home Discharge orders & Medications Prescriptions: New tizanidine 4 mg Tablet 4 mg PO Q8H PRN (Reason: spasms) Qty: 30 0RF clopidogrel 75 mg Tablet 75 mg PO DAILY Qty: 30 0RF metoprolol tartrate 25 mg Tablet 12.5 mg PO BID Qty: 60 0RF Continued prenat.vits,jeremy,dvo-paeg-pfxsw tablet 1 tab PO DAILY Januvia 25 mg tablet 25 mg PO DAILY vortioxetine 20 mg tablet 20 mg PO DAILY Qty: 90 3RF quetiapine 50 mg tablet 100 mg PO BEDTIME Qty: 180 3RF clonazepam 0.5 mg tablet 0.5 mg PO BID Qty: 60 1RF buprenorphine-naloxone [Suboxone] 8-2 mg film 2 film buccal DAILY ketoconazole 2 % cream 1 nathan Topical BID Qty: 30 0RF cyclosporine [Restasis] 1 EACH dropperette 1 drp OPHTH BID Qty: 0 insulin glargine [Lantus Solostar U-100 Insulin] 100 unit/mL (3 mL) insulin pen 30 unit SUBCUT HS Qty: 1 3RF insulin lispro [Humalog KwikPen Insulin] 100 unit/mL insulin pen 10 - 15 unit SUBCUT ACHS Qty: 1 3RF albuterol sulfate 2.5 mg /3 mL (0.083 %) solution for nebulization 2.5 mg INHALATION Q6H PRN (Reason: shortness of breath or wheezing) Qty: 90 11RF ondansetron 4 mg tablet,disintegrating 4 mg Sublingual Q6HP PRN (Reason: nausea and vomiting) Qty: 120 2RF Rx Instructions: 1-2 tabs every 6 hours (DME) DISABLED PARKING PERMIT See Rx Instructions .ROUTE .MEDSUPPLY Qty: 1 0RF Rx Instructions: I FIND THIS PATIENT TO BE MEDICALLY DISABLED AND QUALIFIED FOR DISABLE PARKING INDICATED, AND SIGNED ON THE ACCOMPANYING [employer] APPLICATION FOR INDIVIDUALS albuterol sulfate [Ventolin HFA] 90 mcg/actuation HFA aerosol inhaler 1 puff inhalation Q6H PRN (Reason: shortness of breath or wheezing) Qty: 18 6RF tizanidine 4 mg tablet 4 mg PO Q8H PRN (Reason: muscle spasticity) Qty: 120 3RF dextroamphetamine-amphetamine 5 mg capsule,extended release 24hr 5 mg PO QAM Qty: 30 0RF Rx Instructions: Dr. Wood filling for Dr. Hammer nifedipine 30 mg tablet extended release 30 mg PO DAILY diphenhydramine HCl [Benadryl Allergy] 25 mg tablet 12.5 mg PO BID PRN (Reason: pruritis) estradiol [Daria] 0.05 mg/24 hr patch semiweekly 1 patch transdermal 2XW Qty: 8 11RF Rx Instructions: Apply patch to lower abdomen or hip twice a week nystatin-triamcinolone 100,000-0.1 unit/gram-% ointment See Rx Instructions TOP BID Qty: 30 0RF Dose Instruction: TOP BID; Apply to affected area BID 2-3 weeks Rx Instructions: apply small amount TOP BID; Apply to affected area BID 2-3 weeks budesonide 0.5 mg/2 mL suspension for nebulization 0.5 mg inhalation BID Qty: 360 3RF aspirin 81 mg tablet,delayed release (DR/EC) 81 mg PO DAILY nitroglycerin 0.4 mg tablet, sublingual 0.4 mg sublingual Q5-15M PRN (Reason: Chest Pain) Rx Instructions: do not exceed 3 doses per episode epinephrine 0.3 mg/0.3 mL auto-injector 0.3 mg IM PRN PRN (Reason: Anaphylaxis) Qty: 1 11RF pantoprazole [Protonix] 40 mg tablet,delayed release (DR/EC) 80 mg PO QAM Qty: 180 3RF Rx Instructions: BEFORE BREAKFAST. rosuvastatin 40 mg tablet 40 mg PO DAILY Qty: 90 3RF (DME) Dexcom G6 Sensor Device See Rx Instructions .ROUTE .MEDSUPPLY Qty: 3 Patient Comments: CHANGE EVERY 10 DAYS Rx Instructions: As directed; change every 10 days. torsemide 20 mg tablet 20 mg PO DAILY colchicine 0.6 mg tablet 0.6 mg PO BID Qty: 30 2RF Glucagon Emergency Kit (human) 1 mg Recon Soln 1 mg SUBCUT Q20M PRN (Reason: Hypoglycemia) Follow up/Referrals: Jigar Bird MD [Primary Care Provider] - Visit Report/Discharge Packet Instructions: DI for Dehydration -- Adult, Nausea and Vomiting-Adult Stand Alone Forms: Patient Portal/API, Stroke Signs & Symptoms Discharge Data Primary Care Provider: Jigar Bird V
--- NOTE | 2022-10-29 13:09 | PC.NURSE ---
1305- Patient and given discharge instruction. Both verbalize understanding of plan for discharge. IV discontinued tip intact. Patient stable at time of discharge. Follow up instruction with primary MD confirmed with patient.
== END 2022-10-29 13:13 | disposition home health service (06) | DRG 682 ==
LOC: ED 20:41 → AC 20:45 → ICU 21:27
PROVIDERS: Nurse Practitioner Critical Care Medicine; Student in an Organized Health Care Education/Training Program; Admitting Provider Internal Medicine; Emergency Provider Emergency Medicine; PCP Internal Medicine; Referring Provider Internal Medicine; Visit Provider Internal Medicine
DX: N17.9 Acute kidney failure, unspecified (principal); U07.1 COVID-19; N18.4 Chronic kidney disease, stage 4 (severe); E11.22 Type 2 diabetes mellitus with diabetic chronic kidney disease; I12.9 Hypertensive chronic kidney disease with stage 1 through stage 4 chronic kidney disease, or unspecified chronic kidney disease; J44.9 Chronic obstructive pulmonary disease, unspecified; I25.10 Atherosclerotic heart disease of native coronary artery without angina pectoris; F41.9 Anxiety disorder, unspecified; M79.7 Fibromyalgia; R11.2 Nausea with vomiting, unspecified; K21.9 Gastro-esophageal reflux disease without esophagitis; E78.5 Hyperlipidemia, unspecified; Z87.891 Personal history of nicotine dependence; Z79.4 Long term (current) use of insulin; Z79.84 Long term (current) use of oral hypoglycemic drugs
CPT/HCPCS: 0241U; 36415; 74176; 76770; 80048; 80053; 81001; 82009; 82550; 82570; 82805; 82962; 83036; 83605; 83690; 83735; 84100; 84300; 85025; 86140; 87797; 94640; 94760; 96361; 96365; 96366; 96375; 96376; 97162; 99284; 99285; J1170; J1644; J1815; J2405; J2765; J3475; J7613

== ENCOUNTER → 2022-12-25 12:31 | Outpatient (CLI) | payer OTHER, MEDICAID, SELFPAY ==
[2022-10-24 21:27] VITALS: BMI 24.8
[2022-12-25 12:57] LABS: Hematocrit 32.3 % (36-46); Hemoglobin 10.6 g/dL (12.0-16.0); Mean Corpuscular Hemoglobin 30.6 PG (26-34); Mean Corpuscular Volume 92.7 fL (80-100); Platelet Count 173 X10^3/uL (150-400); Red Blood Cell Count 3.48 X10^6/uL (4.0-5.2); Red Cell Distribution Width 15.5 % (11.6-14.8); White Blood Cell Count 8.6 X10^3/uL (4.5-11.0)
[2022-12-25 13:16] LABS: Alanine Aminotransferase 25 IU/L (<35); Alkaline Phosphatase 510 U/L (38-126); Aspartate Aminotransferase 54 IU/L (14-36); BUN Creatinine Ratio 7.8 (6-22); Bilirubin Total 0.4 mg/dL (0.2-1.3); Blood Urea Nitrogen 23 mg/dL (7-17); Calcium 8.6 mg/dL (8.4-10.2); Carbon Dioxide 16 mmol/L (22-32); Chloride 112 mmol/L (98-107); Cholesterol 151 mg/dL (140-199); Estimated Glomerular Filt Rate 18 mL/min (>60); Glucose 106 mg/dL (70-100); HDL Cholesterol 73 mg/dL (40-60); HEMOLYSIS < 15 (0-50); LDL Cholesterol Calculated 49 mg/dL (<100); Potassium 4.1 mmol/L (3.4-5.1); Sodium 139 mmol/L (137-145); Triglycerides 145 mg/dL (35-150)
[2022-12-25 13:47] LABS: TSH w/ Reflex to FT4 0.64 uIU/mL (0.47-4.68)
[2022-12-26 03:10] LABS: x Labcorp Estim. Avg Glu (eAG) 128 mg/dL (.); x Labcorp Hemoglobin A1c 6.1 % (4.8-5.6)
== END ==
PROVIDERS: PCP Internal Medicine; Referring Provider Internal Medicine; Visit Provider Internal Medicine
DX: E11.59 Type 2 diabetes mellitus with other circulatory complications (principal); E78.2 Mixed hyperlipidemia; I10 Essential (primary) hypertension; N18.32 Chronic kidney disease, stage 3b
CPT/HCPCS: 36415; 80053; 80061; 83036; 84443; 85027

== ENCOUNTER → 2023-04-10 11:59 | Outpatient (CLI) | payer OTHER, MEDICAID, SELFPAY ==
[2022-10-24 21:27] VITALS: BMI 24.8
[2023-04-10 13:20] LABS: BUN Creatinine Ratio 21.3 (6-22); Blood Urea Nitrogen 30 mg/dL (7-17); Calcium 8.4 mg/dL (8.4-10.2); Carbon Dioxide 22 mmol/L (22-32); Chloride 112 mmol/L (98-107); Estimated Glomerular Filt Rate 43 mL/min (>60); Glucose 116 mg/dL (80-110); HEMOLYSIS < 15 (0-50); Potassium 4.8 mmol/L (3.4-5.1); Sodium 139 mmol/L (137-145)
== END ==
PROVIDERS: PCP Internal Medicine; Referring Provider Internal Medicine Nephrology; Visit Provider Internal Medicine Nephrology
DX: N18.4 Chronic kidney disease, stage 4 (severe) (principal)
CPT/HCPCS: 36415; 80048; 83735

== ENCOUNTER → 2023-05-11 13:58 | Outpatient (CLI) | payer OTHER, MEDICAID, SELFPAY ==
[2022-10-24 21:27] VITALS: BMI 24.8
[2023-05-11 15:12] LABS: BUN Creatinine Ratio 15.2 (6-22); Blood Urea Nitrogen 33 mg/dL (7-17); Calcium 8.9 mg/dL (8.4-10.2); Carbon Dioxide 21 mmol/L (22-32); Chloride 109 mmol/L (98-107); Estimated Glomerular Filt Rate 25 mL/min (>60); Glucose 223 mg/dL (80-110); HEMOLYSIS < 15 (0-50); Potassium 4.4 mmol/L (3.4-5.1); Sodium 137 mmol/L (137-145)
[2023-05-11 17:03] LABS: Creatinine Urine Random 91.4 mg/dL
[2023-05-11 17:08] LABS: Microalbumi Creatinin Ratio Ur 147.7 ug/mg CR (<30); Microalbumin Urine Random 13.5 mg/dL (0-1.6)
== END ==
PROVIDERS: PCP Internal Medicine; Referring Provider Internal Medicine Nephrology; Visit Provider Internal Medicine Nephrology
DX: N18.32 Chronic kidney disease, stage 3b (principal)
CPT/HCPCS: 36415; 80048; 82043; 82570

== ENCOUNTER → 2023-07-24 14:05 | Outpatient (CLI) | payer OTHER, MEDICAID, SELFPAY ==
[2022-10-24 21:27] VITALS: BMI 24.8
[2023-07-24 15:36] LABS: Alanine Aminotransferase 24 IU/L (<35); Albumin 3.4 g/dL (3.5-5.0); Albumin Globulin Ratio 1.1 (1.0-2.8); Alkaline Phosphatase 241 U/L (38-126); Aspartate Aminotransferase 44 IU/L (14-36); BUN Creatinine Ratio 20.4 (6-22); Bilirubin Total 0.6 mg/dL (0.2-1.3); Blood Urea Nitrogen 38 mg/dL (7-17); Calcium 8.7 mg/dL (8.4-10.2); Carbon Dioxide 19 mmol/L (22-32); Chloride 110 mmol/L (98-107); Estimated Glomerular Filt Rate 31 mL/min (>60); Globulin 3.2 g/dL (1.7-4.1); Glucose 81 mg/dL (80-110); HEMOLYSIS < 15 (0-50); Potassium 4.5 mmol/L (3.4-5.1); Sodium 136 mmol/L (137-145); Total Protein 6.6 g/dL (6.3-8.2)
[2023-07-24 15:44] LABS: Creatinine Urine Random 132.6 mg/dL; Protein (Total) Urine Random 85 mg/dL (0-12); Protein Creatinine Ratio Urine 0.64 GRAM/24H
== END ==
PROVIDERS: PCP Internal Medicine; Referring Provider Internal Medicine Nephrology; Visit Provider Internal Medicine Nephrology
DX: R53.83 Other fatigue (principal); N17.9 Acute kidney failure, unspecified
CPT/HCPCS: 36415; 80053; 82570; 84156

== ENCOUNTER → 2023-09-20 12:24 | Outpatient (CLI) | payer OTHER, MEDICAID, SELFPAY ==
[2023-09-03 08:36] VITALS: BMI 24.8
[2023-09-20 13:24] LABS: Hematocrit 30.6 % (36-46); Hemoglobin 10.2 g/dL (12.0-16.0); Mean Corpuscular HGB Conc 33.1 % (30-36); Mean Corpuscular Hemoglobin 30.1 PG (26-34); Mean Corpuscular Volume 90.9 fL (80-100); Platelet Count 130 X10^3/uL (150-400); Red Blood Cell Count 3.37 X10^6/uL (4.0-5.2); White Blood Cell Count 7.5 X10^3/uL (4.5-11.0)
[2023-09-20 13:51] LABS: Hemoglobin A1C% w Est Avg Glu 5.9 % (4.0-6.0)
[2023-09-20 13:52] LABS: Alanine Aminotransferase 18 IU/L (<35); Albumin 3.9 g/dL (3.5-5.0); Alkaline Phosphatase 297 U/L (38-126); Aspartate Aminotransferase 38 IU/L (14-36); BUN Creatinine Ratio 10.2 (6-22); Bilirubin Total 0.6 mg/dL (0.2-1.3); Blood Urea Nitrogen 22 mg/dL (7-17); Calcium 8.4 mg/dL (8.4-10.2); Carbon Dioxide 19 mmol/L (22-32); Chloride 107 mmol/L (98-107); Cholesterol 152 mg/dL (140-199); Estimated Glomerular Filt Rate 26 mL/min (>60); Globulin 3.9 g/dL (1.7-4.1); Glucose 120 mg/dL (80-110); HDL Cholesterol 93 mg/dL (40-60); HEMOLYSIS < 15 (0-50); LDL Cholesterol Calculated 43 mg/dL (<100); Potassium 3.7 mmol/L (3.4-5.1); Sodium 138 mmol/L (137-145); Total Protein 7.8 g/dL (6.3-8.2); Triglycerides 80 mg/dL (35-150)
[2023-09-20 14:22] LABS: TSH w/ Reflex to FT4 1.25 uIU/mL (0.47-4.68)
[2023-09-20 19:17] LABS: Microalbumin Urine Random 2.9 mg/dL (0-1.6)
[2023-09-20 19:23] LABS: Creatinine Urine Random 14.5 mg/dL
[2023-09-20 19:38] LABS: Vitamin D 25 Hydroxy (D3) 13.7 ng/mL (30.0-100.0)
[2023-09-22 11:08] LABS: Parathyroid Hormone Int 178 pg/mL (15-65)
== END ==
PROVIDERS: PCP Internal Medicine; Referring Provider Internal Medicine Nephrology; Visit Provider Internal Medicine
DX: N18.32 Chronic kidney disease, stage 3b (principal); E11.59 Type 2 diabetes mellitus with other circulatory complications; E78.2 Mixed hyperlipidemia
CPT/HCPCS: 36415; 80053; 80061; 82043; 82306; 82570; 83036; 83970; 84443; 85027

== ENCOUNTER → 2023-10-16 14:15 | Outpatient (CLI) | payer OTHER, MEDICAID, SELFPAY ==
[2023-09-03 08:36] VITALS: BMI 24.8
[2023-10-16 15:32] LABS: Albumin 3.4 g/dL (3.5-5.0); BUN Creatinine Ratio 7.9 (6-22); Blood Urea Nitrogen 19 mg/dL (7-17); Carbon Dioxide 25 mmol/L (22-32); Chloride 109 mmol/L (98-107); Estimated Glomerular Filt Rate 22 mL/min (>60); Glucose 209 mg/dL (80-110); HEMOLYSIS < 15 (0-50); Magnesium 2.1 mg/dL (1.6-2.3); Potassium 3.3 mmol/L (3.4-5.1); Sodium 138 mmol/L (137-145)
== END ==
LOC: LAB 14:16
PROVIDERS: PCP Internal Medicine; Referring Provider Internal Medicine Nephrology; Visit Provider Internal Medicine Nephrology
DX: N18.4 Chronic kidney disease, stage 4 (severe) (principal)
CPT/HCPCS: 36415; 80048; 82040; 83735

== ENCOUNTER 2023-11-11 14:06 | Emergency (ER) | payer OTHER, MEDICAID, SELFPAY ==
[2023-09-03 08:36] VITALS: BMI 24.8
[2023-11-11] VITALS (11 sets, daily range): BP systolic 126–146; BP diastolic 69–92; PULSE 64–75; RESP 16–28; TEMP 36.8; O2SAT 93–100; BMI 26.2
--- NOTE | 2023-11-11 14:16 | DI.RAD.S_ITS ---
PROCEDURE: XR CHEST 1V INDICATIONS: chest pain TECHNIQUE: One view of the chest was acquired. COMPARISON: [facility], CR, XR CHEST 1V, 06/14/2021, 16:52. FINDINGS: Surgical changes and devices: None. Lungs and pleura: Lungs are clear. No pleural effusions or pneumothorax. Mediastinum: Mediastinal contours appear normal. Heart size is normal. Bones and chest wall: No suspicious bony lesions. Overlying soft tissues appear unremarkable. Convex right thoracolumbar scoliosis IMPRESSION: No acute cardiopulmonary abnormality is seen. Approved by: Pb Jackson M.D. on 11/11/2023 at 15:23
[2023-11-11] MEDS: ASPIRIN 81 MG CHEW TAB 324 MG PO (14:46)
[2023-11-11 14:54] LABS: Add Manual Diff / Slide Review NO; Basophils Absolute Auto 100 /uL (0-100); Basophils Percent Auto 1.1 % (0-2); Eosinophils Absolute Auto 200 /uL (0-450); Eosinophils Percent Auto 2.7 % (2-4); Hematocrit 34.8 % (36-46); Hemoglobin 11.5 g/dL (12.0-16.0); Lymphocytes Absolute Auto 1900 /uL (1100-4500); Lymphocytes Percent Auto 24.9 % (25-40); Mean Corpuscular HGB Conc 33.1 % (30-36); Mean Corpuscular Volume 90.8 fL (80-100); Monocytes Absolute Auto 400 /uL (0-900); Monocytes Percent Auto 5.4 % (3-14); Neutrophils Absolute Auto 4900 /uL (1500-7000); Neutrophils Percent Auto 65.9 % (50-75); Platelet Count 121 X10^3/uL (150-400); Red Blood Cell Count 3.83 X10^6/uL (4.0-5.2); Red Cell Distribution Width 15.4 % (11.6-14.8); White Blood Cell Count 7.4 X10^3/uL (4.5-11.0)
[2023-11-11 15:00] LABS: INR 1.1 (0.9-1.3); Prothrombin Time 12.1 SECONDS (9.4-12.5)
[2023-11-11 15:03] LABS: PTT Partial Thromboplastin Tim 38 SECONDS (25.1-36.5)
[2023-11-11 15:06] LABS: Alanine Aminotransferase 27 IU/L (<35); Albumin 4.1 g/dL (3.5-5.0); Albumin Globulin Ratio 1.1 (1.0-2.8); Alkaline Phosphatase 319 U/L (38-126); Aspartate Aminotransferase 48 IU/L (14-36); BUN Creatinine Ratio 9.4 (6-22); Bilirubin Total 0.7 mg/dL (0.2-1.3); Blood Urea Nitrogen 27 mg/dL (7-17); Calcium 8.7 mg/dL (8.4-10.2); Carbon Dioxide 19 mmol/L (22-32); Chloride 114 mmol/L (98-107); Creatine Kinase 229 U/L (30-135); Estimated Glomerular Filt Rate 18 mL/min (>60); Globulin 3.9 g/dL (1.7-4.1); Glucose 148 mg/dL (80-110); HEMOLYSIS < 15 (0-50); Lipase 511 U/L (23-300); Magnesium 2.1 mg/dL (1.6-2.3); Potassium 3.7 mmol/L (3.4-5.1); Sodium 142 mmol/L (137-145)
[2023-11-11 15:15] LABS: NT-proBNP (BNP-Adult 18+) 293 pg/mL (<125)
[2023-11-11 15:18] LABS: Troponin I < 0.012 ng/mL (0.01-0.034)
--- NOTE | 2023-11-11 15:39 | PC.NURSE ---
Chest pain radiating to neck. Pt states she has asthma/copd and took albuterol at home w/ no relief. lung sounds clear and equal bilateral.
--- NOTE | 2023-11-11 16:30 | ED_ITS ---
HPI - Chest Pain General Chief Complaint: Chest Pain Stated Complaint: Chest pain, SoB, previous Heart Attack Time Seen by Provider: 11/11/23 14:52 Source: patient Mode of arrival: Ambulatory Limitations: no limitations History of Present Illness HPI narrative: This is a 58 old female with history of COPD, sleep apnea, type 2 diabetes, cutaneous sarcoidosis, CKD, prior coronary artery disease with cardiac stent who presents with complaint of shortness of breath for the past 3 days. Patient states she is felt fatigued did not increasingly short of breath. Developed some discomfort in her back chest and left arm yesterday and into today. She states it is constant persistent. She is felt winded. She denies fevers or chills. Has had a persistent cough in the room but states that is her normal baseline. Denies any orthopnea. She does note she was quite swollen in her lower extremities about 3 weeks ago was started on torsemide by her digital media sales consultant and has had improvement. She did try using her Ventolin today with minimal improvement. Patient states she would 4 days of diarrhea after receiving antibiotics for dental infection last week. Patient states she has had some nausea but no vomiting. She does have known gastroparesis and states she also took a dose of Zofran today. She noticed her urine has been foamy but no dysuria urgency or frequency. She also notes she recently was started on prazosin by her psychiatrist and had her carvedilol increased which has been very helpful for her hypertension which was not well controlled. Patient states she follows with Cardiology, Dr. Monterroso, Dr. Frey for Nephrology, Dr. Bird for primary care. Related Data Home Medications Medication Instructions Recorded Confirmed [facility] 0.05 [facility] 11/09/17 11/07/23 dropperette (Restasis) prenat.vits,jeremy,[id number]-[id number] 1 tab PO DAILY 01/18/18 11/07/23 glucagon (human recombinant) 1 mg 1 mg SUBCUT Q20M PRN Hypoglycemia 10/06/18 11/07/23 solution for injection (Glucagon Emergency Kit) aspirin 81 mg tablet,delayed 81 mg PO DAILY 03/21/21 11/07/23 release nitroglycerin 0.4 mg sublingual 0.4 mg sublingual Q5-15M PRN Chest 03/21/21 11/07/23 tablet Pain sitagliptin phosphate 25 mg tablet 25 mg PO DAILY 07/27/21 11/07/23 (Januvia) diphenhydramine HCl 25 mg tablet 12.5 mg PO BID PRN pruritis 12/14/21 11/07/23 (Benadryl Allergy) blood-glucose sensor (Dexcom G6 #3 ea 06/21/22 11/07/23 Sensor device) torsemide 20 mg tablet 20 mg PO DAILY 09/27/22 11/07/23 famotidine 40 mg tablet 40 mg PO DAILY 03/20/23 11/07/23 carvedilol 3.125 mg tablet 3.125 mg PO BID 09/20/23 11/07/23 Previous Rx's Medication Instructions Recorded insulin glargine 100 unit/mL (3 30 unit (0.3 mL) SUBCUT HS #1 mL 05/31/18 mL) subcutaneous pen (Lantus Solostar U-100 Insulin) insulin lispro 100 unit/mL 10 - 15 unit (0.1 - 0.15 mL) 05/31/18 subcutaneous pen (Humalog KwikPen SUBCUT ACHS ##1 (U-100) Insulin) nystatin-triamcinolone 100,000 See Rx Instructions topical BID 09/24/18 unit/gram-0.1 % topical ointment #30 grams budesonide 0.5 mg/2 mL suspension 0.5 mg (2 mL) inhalation BID #360 07/16/20 for nebulization mL epinephrine 0.3 mg/0.3 mL 0.3 mg (0.3 mL) IM PRN PRN 03/21/21 injection, auto-injector Anaphylaxis #1 ea DISABLED PARKING PERMIT #1 ea 06/08/21 clopidogrel 75 mg tablet 75 mg PO DAILY #30 tabs 10/29/22 milnacipran 12.5 mg tablet 12.5 mg PO BID #60 tabs 12/25/22 (Savella) albuterol sulfate 90 mcg/actuation 1 puff inhalation Q6H PRN 03/20/23 aerosol inhaler (Ventolin HFA) shortness of breath or wheezing #18 grams triamcinolone acetonide 0.1 % 1 applic topical BID #80 grams 03/20/23 topical cream rosuvastatin 40 mg tablet 40 mg PO DAILY #90 tabs 03/23/23 clonazepam 0.5 mg tablet 0.5 mg PO BID #60 tabs 06/21/23 quetiapine 50 mg tablet 100 mg (2 x 50 mg) PO BEDTIME #180 08/16/23 tabs estradiol 0.05 mg/24 hr semiweekly 1 patch topical 2XW #24 patches 08/21/23 transdermal patch vortioxetine 20 mg tablet 20 mg PO DAILY #90 tabs 08/30/23 albuterol sulfate 2.5 mg/3 mL 2.5 mg (3 mL) inhalation Q6H PRN 09/20/23 (0.083 %) solution for nebulization shortness of breath or wheezing #90 mL ondansetron 4 mg disintegrating 4 mg sublingual Q6HP PRN nausea 09/20/23 tablet and vomiting #120 tabs pantoprazole 40 mg tablet,delayed 80 mg (2 x 40 mg) PO QAM #180 tabs 09/20/23 release (Protonix) tizanidine 4 mg tablet 4 mg PO Q8H PRN muscle spasticity 09/20/23 #120 tabs amoxicillin 875 mg-potassium 1 tab PO BID Tooth Infection #14 10/31/23 clavulanate 125 mg tablet tabs dextroamphetamine-amphetamine ER 5 5 mg PO QAM #30 caps 11/06/23 mg 24hr capsule,extend release prazosin 1 mg capsule 1 mg PO BEDTIME nightmares #90 caps 11/07/23 prednisone 20 mg tablet 40 mg (2 x 20 mg) PO DAILY #8 tabs 11/11/23 Allergies Allergy/AdvReac Type Severity Reaction Status Date / Time luciano Allergy Severe Anaphylaxis Verified 11/11/23 14:11 venom-honey bee Allergy Severe SWOLLEN Verified 11/11/23 14:11 [bee venom (honey bee)] TONGUE AND THROAT BUT NOT ANAPHALAXIS gabapentin Allergy Unknown MY Verified 11/11/23 14:11 THOUGHT IT MADE ME ACT WERID lidocaine AdvReac Severe sanchez - Verified 11/11/23 14:11 rash pregabalin [From LYRICA] AdvReac Intermediate 'WELTS ON Verified 11/11/23 14:11 MY BODY' cyclobenzaprine AdvReac Unknown Anxiety Verified 11/11/23 14:11 [From FLEXERIL] hydroxyzine AdvReac Unknown PT STATES Verified 11/11/23 14:11 EYES DRIES ME UP venlafaxine AdvReac Unknown MADE MY Verified 11/11/23 14:11 BLOOD PRESSURE HIGH trazodone AdvReac heart Verified 11/11/23 14:11 palpatations fake sugar Allergy Unknown blotchy Uncoded 09/20/23 07:30 Review of Systems Review of Systems ROS Unobtainable: All systems reviewed & are unremarkable except as noted in HPI and below Patient History Medical History History of cervical cancer Gout Age-related osteoporosis without current pathological fracture Venous (peripheral) insufficiency Coronary artery disease Recurrent falls GERD without esophagitis Chronic kidney disease, stage 3b Polyneuropathy, unspecified Mixed hyperlipidemia Essential hypertension Type 2 diabetes mellitus with cardiac complication Insomnia Obstructive sleep apnea Central sleep apnea Vaginal atrophy Hypertensive urgency Generalized anxiety disorder GERD (gastroesophageal reflux disease) (1980) Esophageal stricture (09/2017) Pancreatitis (2010) Spinal stenosis Shoulder pain Lumbar spine pain Chronic headaches ADHD (attention deficit hyperactivity disorder) Chronic cough Cataract Chicken pox Hyperlipidemia (1991) Hypertension (1991) Kidney stones Scoliosis COPD (chronic obstructive pulmonary disease) Anxiety Sarcoidosis History of blood transfusion (~07/1981) 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 2 diabetes mellitus with diabetic polyneuropathy (07/22/15) Fibromyalgia (06/24/15) Influenza B Back pain Weakness of both legs Right fibular fracture Trichotillomania Major depressive disorder, recurrent, moderate Post-traumatic stress disorder, chronic Surgical History Status post cataract extraction S/P dilatation of esophageal stricture (09/2017) Anesthesia Status post delivery (05/02/85) History of tonsillectomy (1967) Status post cholecystectomy (02/1985) Status post hysterectomy (1986) Family History Brother Age: 66 Diabetes mellitus Child Age: 42 Asthma Child Heart defect Father Age: 86 Hypertension Cirrhosis of liver Mother Heart disease High cholesterol Amyloidosis Sister Age: 63 Diabetes mellitus Heart disease Sister Heart disease Social History household members: spouse Smoking Status: Former smoker alcohol intake: never Smoking Status: Former smoker alcohol intake frequency: holidays/special occasions only Substance Use Type: former substance user Exam Narrative Exam Narrative: GENERAL: Alert and oriented x three, mild distress. HEENT: Head normocephalic, atraumatic, EOMI, pupils reactive, face symmetric, moist mucous membranes NECK: Supple, full range of motion CARDIOVASCULAR: Regular rate and rhythm without murmurs, rubs or gallops. No JVD. No edema bilateral lower extremities. RESPIRATORY: Breath sounds equal bilaterally, no wheezes rales or rhonchi. No tachypnea or accessory muscle use. Patient does have a mild persistent cough. She states this is her normal baseline. ABDOMEN: Soft, nontender. Normoactive bowel sounds all 4 quadrants. No guarding or rebound, rigidity, no mass : No CVA tenderness EXTREMITIES: Normal range of motion, no clubbing or edema. Neurovascularly intact NEUROLOGICAL: Cranial nerves II through XII grossly intact. Moving all extremities SKIN: Warm, dry, no petechiae, no rashes or lesions. Initial Vital Signs Initial Vital Signs: Vital Signs Temperature 98.3 F 11/11/23 14:11 Pulse Rate 73 11/11/23 14:11 Respiratory Rate 28 H 11/11/23 14:11 Blood Pressure 128/69 11/11/23 14:11 Pulse Oximetry 97 11/11/23 14:11 Oxygen Delivery Method Room Air 11/11/23 14:11 Course Orders Ordered: Discontinued Medications Aspirin (Aspirin 81 Mg Chew Tab) 324 mg PO NOW ONE Stop: 11/11/23 14:16 Last Admin: 11/11/23 14:46 Dose: 162 mg Documented By: LINDA Prednisone (Prednisone 20 Mg Tablet) 40 mg PO NOW ONE Stop: 11/11/23 18:15 Vital Signs Vital signs: Vital Signs - 8 hr 11/11/23 14:11 11/11/23 14:20 11/11/23 14:21 Temperature 98.3 F Pulse Rate 73 75 Respiratory Rate 28 H Blood Pressure 128/69 Pulse Oximetry 97 98 93 Oxygen Delivery Method Room Air 11/11/23 14:21 11/11/23 14:30 11/11/23 15:00 Temperature Pulse Rate 72 67 Respiratory Rate 21 Blood Pressure 126/92 H Pulse Oximetry 100 100 Oxygen Delivery Method 11/11/23 15:30 11/11/23 16:00 11/11/23 16:30 Temperature Pulse Rate 67 64 65 Respiratory Rate 17 22 16 Blood Pressure Pulse Oximetry 100 100 100 Oxygen Delivery Method 11/11/23 17:00 11/11/23 17:30 Temperature Pulse Rate 64 64 Respiratory Rate 18 18 Blood Pressure Pulse Oximetry 100 100 Oxygen Delivery Method MDM - Chest Pain Lab Data 11/11/23 14:33 11/11/23 14:33 Labs: Lab Results 11/11/23 11/11/23 11/11/23 Range/Units 14:33 16:48 16:55 WBC 7.4 (4.5-11.0) X10^3/uL RBC 3.83 L (4.0-5.2) X10^6/uL Hgb 11.5 L (12.0-16.0) g/dL Hct 34.8 L (36-46) % MCV 90.8 (80-100) fL MCH 30.0 (26-34) PG MCHC 33.1 (30-36) % RDW 15.4 H (11.6-14.8) % Plt Count 121 L (150-400) X10^3/uL Neut % (Auto) 65.9 (50-75) % Lymph % (Auto) 24.9 L (25-40) % Toombs % (Auto) 5.4 (3-14) % Eos % (Auto) 2.7 (2-4) % Baso % (Auto) 1.1 (0-2) % Neut # (Auto) 4900 (3407-3546) /uL Lymph # (Auto) 1900 (7417-4411) /uL [place]ombs # (Auto) 400 (0-900) /uL Eos # (Auto) 200 (0-450) /uL Baso # (Auto) 100 (0-100) /uL PT 12.1 (9.4-12.5) SECONDS INR 1.1 (0.9-1.3) APTT 38 H (25.1-36.5) SECONDS Sodium 142 (137-145) mmol/L Potassium 3.7 (3.4-5.1) mmol/L Chloride 114 H (98-107) mmol/L Carbon Dioxide 19 L (22-32) mmol/L BUN 27 H (7-17) mg/dL Creatinine 2.88 H (0.52-1.04) mg/dL Estimated GFR 18 L (>60) mL/min BUN/Creatinine Ratio 9.4 (6-22) Glucose 148 H (80-110) mg/dL Calcium 8.7 (8.4-10.2) mg/dL Magnesium 2.1 (1.6-2.3) mg/dL Total Bilirubin 0.7 (0.2-1.3) mg/dL AST 48 H (14-36) IU/L ALT 27 (<35) IU/L Alkaline Phosphatase 319 H (38-126) U/L Total Creatine Kinase 229 H (30-135) U/L Troponin I < 0.012 < 0.012 (0.01-0.034) ng/mL NT-Pro-B Natriuret Pep 293 H (<125) pg/mL Total Protein 8.0 (6.3-8.2) g/dL Albumin 4.1 (3.5-5.0) g/dL Globulin 3.9 (1.7-4.1) g/dL Albumin/Globulin Ratio 1.1 (1.0-2.8) Lipase 511 H (23-300) U/L Chlamy pneumoniae PCR Not detected (Not Detect) Adenovirus (PCR) Not detected (Not Detect) B.parapertussis DNA PCR Not detected (Not Detecte) Coronavirus OC43 (PCR) Not detected (Not Detect) Coronavirus HKU1 (PCR) Not detected (Not Detect) Coronavirus 229E (PCR) Not detected (Not Detect) SARS-CoV-2 (PCR) Not detected (Not Detecte) Coronavirus NL63 (PCR) Not detected (Not Detect) Human Metapneumovir PCR Not detected (Not Detect) Influenza Type A (PCR) Not detected (Not Detect) Influenza Type B (PCR) Not detected (Not Detect) M. pneumoniae (PCR) Not detected (Not Detect) Parainfluenza 1 (PCR) Not detected (Not Detect) Parainfluenza 2 (PCR) Not detected (Not Detect) Parainfluenza 3 (PCR) Not detected (Not Detect) Parainfluenza 4 (PCR) Not detected (Not Detect) RSV (PCR) Not detected (Not Detect) Entero/Rhino (PCR) Not detected (Not Detect) Imaging Data Chest x-ray: Radiologist's Impression: [address] [address] XRay Report Signed Patient: Keila Godfrey MR#: [id number] : 1965 Acct:[id number] Age/Sex: 58 / F Date of Service: 11/11/23 Loc: ED Accession Number: [id number] Procedure: XR chest 1V Ordering Provider: Cora Jean D.O. PROCEDURE: XR CHEST 1V INDICATIONS: chest pain TECHNIQUE: One view of the chest was acquired. COMPARISON: [facility], , XR CHEST 1V, 06/14/2021, 16:52. FINDINGS: Surgical changes and devices: None. Lungs and pleura: Lungs are clear. No pleural effusions or pneumothorax. Mediastinum: Mediastinal contours appear normal. Heart size is normal. Bones and chest wall: No suspicious bony lesions. Overlying soft tissues appear unremarkable. Convex right thoracolumbar scoliosis IMPRESSION: No acute cardiopulmonary abnormality is seen. Approved by: Pb Jackson M.D. on 11/11/2023 at 15:23 ECG Data Attestation: I personally reviewed and interpreted this ECG as follows: Prior ECG tracings: available for review Interpretation: Sinus rhythm rate of 71 HI 148 QRS is 74 QTC [address]. No acute ST elevation or depression noted. Patient has prior from 06/14/2021 which appears similar. EKG 2. Sinus rhythm left axis deviation, rate of 65 HI 136 QRS is 70 QTC 424. One and aVL downward, other leads appear all similar. AVR appears to be flipped with 2. MDM Narrative Medical decision making narrative: This is a 58-year-old who follows regularly with Cardiology has had a prior cardiac stent, known COPD, known diabetes, gastroparesis, chronic kidney disease with hypertension who was recently started on torsemide and had significant bruising swelling in her extremities. She has also had her carvedilol and prazosin increased fairly recently on her blood pressure has been better improved. Patient's labs show white count of 7.4 hemoglobin 11.5 platelets of 121, INR 1.1, creatinine today is 2.88, it is not her maximum but is up from most recent. She has been following regularly with Neurology and she states this is consistent with her current baseline. Sodium is 142 potassium 3 7, BUN 27 with a chloride of 114 in his CO of 19, glucose 148. Initial troponin is negative. BNP is 293. Lipase was 511. Chest x-ray negative for acute change no pulmonary edema or fluid collection noted. EKG shows sinus rhythm without any acute ST changes appears similar to prior from 2020. Respiratory panel negative. Repeat troponin is negative. Patient has cardiac risk factors but after days with troponin, unlikely to be coronary artery. Patient's creatinine slightly up but she states this is similar to her most recent. No significant electrolyte changes otherwise patient felt appropriate for discharge home. She has not wheezy on exam but does have known COPD recent weather changes we will give a short course of prednisone to see if this is helpful. BNP is low she does not appear fluid overloaded. Discussed with patient I would like short term follow-up. Discharge Plan Departure Patient Disposition: Home Clinical Impression: Atypical chest pain Activity Restrictions/Additional Instructions: Follow up with your physician and/or belt maker helper for recheck. Continue your home medications as prescribed. Prescription for steroid was included, this was sent to [facility]. There maybe a component of COPD although you are not wheezy today on examination. Please return for new or worsening chest pain, shortness of breath, lightheadedness or passing out, new swelling of your extremities or other new or concerning changes. Prescriptions: New prednisone 20 mg tablet 40 mg PO DAILY Qty: 8 0RF No Action prenat.vits,jeremy,kzj-ksnv-wucly tablet 1 tab PO DAILY Januvia 25 mg tablet 25 mg PO DAILY quetiapine 50 mg tablet 100 mg PO BEDTIME Qty: 180 3RF prazosin 1 mg capsule 1 mg PO BEDTIME Qty: 90 3RF Rx Instructions: Take one capsule at bedtime for 7 days. May increase by one capsule every 7 days to max dose of 3 caps per day. cyclosporine [Restasis] 1 EACH dropperette 1 drp OPHTH BID Qty: 0 insulin glargine [Lantus Solostar U-100 Insulin] 100 unit/mL (3 mL) insulin pen 30 unit SUBCUT HS Qty: 1 3RF insulin lispro [Humalog KwikPen Insulin] 100 unit/mL insulin pen 10 - 15 unit SUBCUT ACHS Qty: 1 3RF (DME) DISABLED PARKING PERMIT See Rx Instructions .ROUTE .MEDSUPPLY Qty: 1 0RF Rx Instructions: I FIND THIS PATIENT TO BE MEDICALLY DISABLED AND QUALIFIED FOR DISABLE PARKING INDICATED, AND SIGNED ON THE ACCOMPANYING [facility] APPLICATION FOR INDIVIDUALS rosuvastatin 40 mg tablet 40 mg PO DAILY Qty: 90 3RF clonazepam 0.5 mg tablet 0.5 mg PO BID Qty: 60 1RF estradiol 0.05 mg/24 hr patch semiweekly 1 patch topical 2XW Qty: 24 3RF vortioxetine 20 mg tablet 20 mg PO DAILY Qty: 90 1RF amoxicillin-pot clavulanate 875-125 mg tablet 1 tab PO BID Qty: 14 0RF dextroamphetamine-amphetamine 5 mg capsule,extended release 24hr 5 mg PO QAM Qty: 30 0RF diphenhydramine HCl [Benadryl Allergy] 25 mg tablet 12.5 mg PO BID PRN (Reason: pruritis) famotidine 40 mg tablet 40 mg PO DAILY albuterol sulfate [Ventolin HFA] 90 mcg/actuation HFA aerosol inhaler 1 puff inhalation Q6H PRN (Reason: shortness of breath or wheezing) Qty: 18 6RF triamcinolone acetonide 0.1 % cream 1 applic topical BID Qty: 80 1RF carvedilol 3.125 mg tablet 3.125 mg PO BID pantoprazole [Protonix] 40 mg tablet,delayed release (DR/EC) 80 mg PO QAM Qty: 180 3RF Rx Instructions: BEFORE BREAKFAST. tizanidine 4 mg tablet 4 mg PO Q8H PRN (Reason: muscle spasticity) Qty: 120 3RF albuterol sulfate 2.5 mg /3 mL (0.083 %) solution for nebulization 2.5 mg INHALATION Q6H PRN (Reason: shortness of breath or wheezing) Qty: 90 11RF ondansetron 4 mg tablet,disintegrating 4 mg Sublingual Q6HP PRN (Reason: nausea and vomiting) Qty: 120 2RF Rx Instructions: 1-2 tabs every 6 hours nystatin-triamcinolone 100,000-0.1 unit/gram-% ointment See Rx Instructions TOP BID Qty: 30 0RF Dose Instruction: TOP BID; Apply to affected area BID 2-3 weeks Rx Instructions: apply small amount TOP BID; Apply to affected area BID 2-3 weeks budesonide 0.5 mg/2 mL suspension for nebulization 0.5 mg inhalation BID Qty: 360 3RF aspirin 81 mg tablet,delayed release (DR/EC) 81 mg PO DAILY nitroglycerin 0.4 mg tablet, sublingual 0.4 mg sublingual Q5-15M PRN (Reason: Chest Pain) Rx Instructions: do not exceed 3 doses per episode epinephrine 0.3 mg/0.3 mL auto-injector 0.3 mg IM PRN PRN (Reason: Anaphylaxis) Qty: 1 11RF (DME) Dexcom G6 Sensor Device See Rx Instructions .ROUTE .MEDSUPPLY Qty: 3 Patient Comments: CHANGE EVERY 10 DAYS Rx Instructions: As directed; change every 10 days. torsemide 20 mg tablet 20 mg PO DAILY Savella 12.5 mg tablet 12.5 mg PO BID Qty: 60 2RF Glucagon Emergency Kit (human) 1 mg Recon Soln 1 mg SUBCUT Q20M PRN (Reason: Hypoglycemia) clopidogrel 75 mg Tablet 75 mg PO DAILY Qty: 30 0RF Referrals: Jigar Bird MD [Primary Care Provider] - Stand Alone Forms: Patient Portal/API
[2023-11-11 17:18] LABS: Troponin I < 0.012 ng/mL (0.01-0.034)
[2023-11-11 18:00] LABS: Adenovirus Not Detected (Not Detect); B. parapertussis Not Detected (Not Detecte); Bordetella pertussis Not Detected (Not Detect); Chlamydophila pneumoniae Not Detected (Not Detect); Coronavirus 229E Not Detected (Not Detect); Coronavirus HKU1 Not Detected (Not Detect); Coronavirus NL 63 Not Detected (Not Detect); Coronavirus OC43 Not Detected (Not Detect); Human Metapneumovirus Not Detected (Not Detect); Human Rhinovirus/Enterovirus Not Detected (Not Detect); Influenza A Not Detected (Not Detect); Influenza B Not Detected (Not Detect); Mycoplasma pneumoniae Not Detected (Not Detect); Parainfluenza Virus 1 Not Detected (Not Detect); Parainfluenza Virus 2 Not Detected (Not Detect); Parainfluenza Virus 3 Not Detected (Not Detect); Parainfluenza Virus 4 Not Detected (Not Detect); Respiratory Syncytial Virus Not Detected (Not Detect); SARS- CoV-2 Not Detected (Not Detecte)
== END 2023-11-11 18:30 | disposition home or self-care (01) ==
PROVIDERS: Emergency Provider Emergency Medicine; PCP Internal Medicine
DX: R07.89 Other chest pain (principal); R79.89 Other specified abnormal findings of blood chemistry; Z79.899 Other long term (current) drug therapy; Z20.822 Contact with and (suspected) exposure to COVID-19
CPT/HCPCS: 36415; 71045; 80053; 82550; 83690; 83735; 83880; 84484; 85025; 85610; 85730; 87633; 93005; 93010; 99284

== ENCOUNTER → 2024-03-26 13:07 | Outpatient (CLI) | payer OTHER, SELFPAY ==
[2023-09-03 08:36] VITALS: BMI 24.8
[2024-03-26 14:46] LABS: Hematocrit 26.9 % (36-46); Hemoglobin 9.1 g/dL (12.0-16.0); Mean Corpuscular HGB Conc 33.7 % (30-36); Mean Corpuscular Hemoglobin 29.9 PG (26-34); Mean Corpuscular Volume 88.7 fL (80-100); Platelet Count 109 X10^3/uL (150-400); Red Blood Cell Count 3.03 X10^6/uL (4.0-5.2); Red Cell Distribution Width 16.6 % (11.6-14.8); White Blood Cell Count 5.5 X10^3/uL (4.5-11.0)
[2024-03-26 15:22] LABS: Albumin 3.2 g/dL (3.5-5.0); BUN Creatinine Ratio 12.3 (6-22); Blood Urea Nitrogen 19 mg/dL (7-17); Calcium 8.3 mg/dL (8.4-10.2); Carbon Dioxide 22 mmol/L (22-32); Chloride 107 mmol/L (98-107); Estimated Glomerular Filt Rate 38 mL/min (>60); Glucose 184 mg/dL (80-110); HEMOLYSIS < 15 (0-50); Magnesium 2.2 mg/dL (1.6-2.3); Phosphorous 2.4 mg/dL (2.8-4.1); Potassium 4.2 mmol/L (3.4-5.1); Sodium 134 mmol/L (137-145)
[2024-03-26 18:17] LABS: Creatinine Urine Random 96.26 mg/dL; Protein (Total) Urine Random 19 mg/dL (0-12); Protein Creatinine Ratio Urine 0.19 GRAM/24H
[2024-03-26 18:30] LABS: Microalbumin Urine Random < 0.6 mg/dL (0-1.6)
[2024-03-26 18:38] LABS: Vitamin D 25 Hydroxy (D3) 15.9 ng/mL (30.0-100.0)
[2024-03-29 07:36] LABS: Parathyroid Hormone Int 63 pg/mL (15-65)
== END ==
PROVIDERS: PCP Internal Medicine; Referring Provider Internal Medicine Nephrology; Visit Provider Internal Medicine Nephrology
DX: N18.4 Chronic kidney disease, stage 4 (severe) (principal)
CPT/HCPCS: 36415; 80048; 82040; 82043; 82306; 82570; 83735; 83970; 84100; 84156; 85027

== ENCOUNTER → 2024-04-05 12:42 | Outpatient (CLI) | payer OTHER, MEDICAID, SELFPAY ==
[2023-09-03 08:36] VITALS: BMI 24.8
[2024-04-05 13:05] LABS: Hematocrit 30.7 % (36-46); Hemoglobin 10.1 g/dL (12.0-16.0); Mean Corpuscular HGB Conc 32.9 % (30-36); Mean Corpuscular Hemoglobin 29.5 PG (26-34); Mean Corpuscular Volume 89.7 fL (80-100); Platelet Count 180 X10^3/uL (150-400); Red Blood Cell Count 3.42 X10^6/uL (4.0-5.2); Red Cell Distribution Width 17.2 % (11.6-14.8); White Blood Cell Count 9.8 X10^3/uL (4.5-11.0)
[2024-04-05 13:31] LABS: HEMOLYSIS < 15 (0-50); Iron 123 ug/dL (37-170)
[2024-04-05 13:32] LABS: Albumin 3.8 g/dL (3.5-5.0); BUN Creatinine Ratio 11.6 (6-22); Blood Urea Nitrogen 28 mg/dL (7-17); Calcium 8.8 mg/dL (8.4-10.2); Carbon Dioxide 17 mmol/L (22-32); Chloride 111 mmol/L (98-107); Estimated Glomerular Filt Rate 22 mL/min (>60); Glucose 107 mg/dL (80-110); HEMOLYSIS < 15 (0-50); Magnesium 2.3 mg/dL (1.6-2.3); Potassium 4.3 mmol/L (3.4-5.1); Sodium 137 mmol/L (137-145)
[2024-04-05 13:42] LABS: Percent Iron Saturation 26 % (15-50); Total Iron Binding Capacity 471 ug/dL (265-497); Transferrin 408 mg/dL (206-381)
[2024-04-05 14:07] LABS: Ferritin 12 ng/mL (11-264)
== END ==
PROVIDERS: PCP Internal Medicine; Referring Provider Internal Medicine Nephrology; Visit Provider Internal Medicine Nephrology
DX: N18.32 Chronic kidney disease, stage 3b (principal)
CPT/HCPCS: 36415; 80048; 82040; 82728; 83540; 83550; 83735; 85027

== ENCOUNTER 2024-05-20 20:04 | Emergency (ER) | payer OTHER, MEDICAID, SELFPAY ==
[2023-09-03 08:36] VITALS: BMI 24.8
[2024-05-20] VITALS (7 sets, daily range): BP systolic 110–206; BP diastolic 69–104; PULSE 69–114; RESP 18–24; TEMP 36.6–36.9; O2SAT 97–100; BMI 24.8
[2024-05-20] MEDS: ONDANSETRON 4 MG ODT SL (20:23)
[2024-05-20 22:01] LABS: Add Manual Diff / Slide Review NO; Basophils Absolute Auto 100 /uL (0-100); Basophils Percent Auto 0.7 % (0-2); Eosinophils Absolute Auto 100 /uL (0-450); Eosinophils Percent Auto 0.5 % (2-4); Hematocrit 42.7 % (36-46); Hemoglobin 14.2 g/dL (12.0-16.0); Lymphocytes Absolute Auto 3100 /uL (1100-4500); Lymphocytes Percent Auto 21.6 % (25-40); Mean Corpuscular HGB Conc 33.1 % (30-36); Mean Corpuscular Hemoglobin 29.4 PG (26-34); Mean Corpuscular Volume 88.8 fL (80-100); Monocytes Absolute Auto 700 /uL (0-900); Monocytes Percent Auto 4.5 % (3-14); Neutrophils Absolute Auto 10500 /uL (1500-7000); Neutrophils Percent Auto 72.7 % (50-75); Platelet Count 277 X10^3/uL (150-400); Red Blood Cell Count 4.81 X10^6/uL (4.0-5.2); Red Cell Distribution Width 15.9 % (11.6-14.8); White Blood Cell Count 14.5 X10^3/uL (4.5-11.0)
[2024-05-20 22:04] LABS: Appearance Urine UA SL CLOUDY; Bilirubin Urine UA 1+ (NEGATIVE); Color Urine UA YELLOW; Glucose Urine UA NEGATIVE (Negative); Ketones Urine UA TRACE (NEGATIVE); Leukocyte Esterase Urine UA NEGATIVE (NEGATIVE); Nitrite Urine UA NEGATIVE (Negative); Occult Blood Urine UA NEGATIVE (Negative); Protein Urine UA 2+ (Negative); Specific Gravity Urine UA >=1.030 (1.000-1.035); Urobilinogen Urine UA 0.2 E.U./dL (0.2)
[2024-05-20 22:09] LABS: pH Urine UA 5.5 (4.5-8.0)
[2024-05-20 22:10] LABS: Alanine Aminotransferase 25 IU/L (<35); Albumin 4.6 g/dL (3.5-5.0); Alkaline Phosphatase 297 U/L (38-126); Aspartate Aminotransferase 38 IU/L (14-36); BUN Creatinine Ratio 13.1 (6-22); Bilirubin Total 0.9 mg/dL (0.2-1.3); Blood Urea Nitrogen 37 mg/dL (7-17); Calcium 9.8 mg/dL (8.4-10.2); Carbon Dioxide 17 mmol/L (22-32); Chloride 108 mmol/L (98-107); Estimated Glomerular Filt Rate 18 mL/min (>60); Globulin 4.7 g/dL (1.7-4.1); Glucose 206 mg/dL (80-110); HEMOLYSIS < 15 (0-50); Lipase 201 U/L (23-300); Potassium 3.6 mmol/L (3.4-5.1); Sodium 141 mmol/L (137-145); Total Protein 9.3 g/dL (6.3-8.2)
[2024-05-20 22:12] LABS: Ictotest Urine Negative (Negative); Urine Volume 10mL (spun)
[2024-05-20 22:18] LABS: RBC Urine 0-1/HPF (0-5/HPF); WBC Urine 0-1/HPF (0-5/HPF)
[2024-05-20 22:19] LABS: Bacteria Urine Many (>30); Hyaline Casts Urine 1-5/LPF; Squamous Epithelial Cell Urine >30 /HPF (0-5/HPF)
[2024-05-20 22:21] LABS: Culture Indicated Urine Cult Not Indicated
[2024-05-20 23:16] LABS: Magnesium 2.1 mg/dL (1.6-2.3); Phosphorous 4.3 mg/dL (2.8-4.1)
[2024-05-20 23:22] LABS: Ketones (Beta-Hydroxybutyrate) 0.61 mmol/L (<0.27)
[2024-05-20] MEDS: ONDANSETRON 4 MG/2 ML INJ IV (23:30)
[2024-05-20 23:34] LABS: Lactate (Lactic Acid) 3.3 mmol/L (0.7-2.1)
--- NOTE | 2024-05-20 23:38 | ED.NAVMDI ---
HPI - Nausea/Vomiting/Diarrhea General Chief complaint: Nausea/Vomiting/Diarrhea Stated complaint: fever, vomiting, no apitite Time Seen by Provider: 05/20/24 21:57 Source: patient Mode of arrival: Wheelchair History of Present Illness HPI Narrative: Patient is a 59-year-old female. Has a history of diabetes, gastroparesis, hypertension, GERD, fibromyalgia, and other chronic medical issues who is here for evaluation of approximately 4 days of vomiting. She was not been able to take her blood pressure medicine because of the vomiting. Has upper abdominal pain. No chest pain or shortness of breath. No fevers. No sore throat. No sinus congestion. She denies any urinary symptoms although she states that her urine output has been decreased recently. No vaginal bleeding. She has had her gallbladder removed. Has had her appendix removed. No skin changes the had dark consistent with a cellulitis. Related Data Home Medications Medication Instructions Recorded Confirmed cyclosporine 0.05 % eye drops in a 1 drp OPHTH BID ##0 11/09/17 03/19/24 dropperette (Restasis) prenat.vits,jeremy,[id number] 1 tab PO DAILY 01/18/18 03/19/24 glucagon (human recombinant) 1 mg 1 mg SUBCUT Q20M PRN Hypoglycemia 10/06/18 03/19/24 solution for injection (Glucagon Emergency Kit) aspirin 81 mg tablet,delayed 81 mg PO DAILY 03/21/21 03/19/24 release nitroglycerin 0.4 mg sublingual 0.4 mg sublingual Q5-15M PRN Chest 03/21/21 03/19/24 tablet Pain diphenhydramine HCl 25 mg tablet 12.5 mg PO BID PRN pruritis 12/14/21 03/19/24 (Benadryl Allergy) blood-glucose sensor (Dexcom G6 #3 ea 06/21/22 03/19/24 Sensor device) torsemide 20 mg tablet 20 mg PO DAILY 09/27/22 03/19/24 famotidine 40 mg tablet 40 mg PO DAILY 03/20/23 03/19/24 carvedilol 25 mg tablet 25 mg PO BID 03/19/24 03/19/24 Previous Rx's Medication Instructions Recorded insulin glargine 100 unit/mL (3 30 unit (0.3 mL) SUBCUT HS #1 mL 05/31/18 mL) subcutaneous pen (Lantus Solostar U-100 Insulin) insulin lispro 100 unit/mL 10 - 15 unit (0.1 - 0.15 mL) 05/31/18 subcutaneous pen (Humalog KwikPen SUBCUT ACHS ##1 (U-100) Insulin) nystatin-triamcinolone 100,000 See Rx Instructions topical BID 09/24/18 unit/gram-0.1 % topical ointment #30 grams budesonide 0.5 mg/2 mL suspension 0.5 mg (2 mL) inhalation BID #360 07/16/20 for nebulization mL epinephrine 0.3 mg/0.3 mL 0.3 mg (0.3 mL) IM PRN PRN 03/21/21 injection, auto-injector Anaphylaxis #1 ea DISABLED PARKING PERMIT #1 ea 06/08/21 triamcinolone acetonide 0.1 % 1 applic topical BID #80 grams 03/20/23 topical cream rosuvastatin 40 mg tablet 40 mg PO DAILY #90 tabs 03/23/23 quetiapine 50 mg tablet 100 mg (2 x 50 mg) PO BEDTIME #180 08/16/23 tabs estradiol 0.05 mg/24 hr semiweekly 1 patch topical 2XW #24 patches 08/21/23 transdermal patch albuterol sulfate 2.5 mg/3 mL 2.5 mg (3 mL) inhalation Q6H PRN 09/20/23 (0.083 %) solution for nebulization shortness of breath or wheezing #90 mL pantoprazole 40 mg tablet,delayed 80 mg (2 x 40 mg) PO QAM #180 tabs 09/20/23 release (Protonix) clonazepam 0.5 mg tablet 0.5 mg PO BID #60 tabs 03/18/24 albuterol sulfate 90 mcg/actuation 1 puff inhalation Q6H PRN 03/19/24 aerosol inhaler (Ventolin HFA) shortness of breath or wheezing #18 grams allopurinol 300 mg tablet 300 mg PO DAILY #90 tabs 03/19/24 milnacipran 12.5 mg tablet 12.5 mg PO BID #60 tabs 03/19/24 (Savella) ondansetron 4 mg disintegrating 4 mg sublingual Q6HP PRN nausea 03/19/24 tablet and vomiting #120 tabs tizanidine 4 mg tablet 4 mg PO Q8H PRN muscle spasticity 03/19/24 #120 tabs tramadol 50 mg tablet 50 mg PO Q6H PRN pain #40 tabs 03/19/24 prazosin 1 mg capsule 5 mg (5 x 1 mg) PO BEDTIME 03/27/24 nightmares #150 caps vortioxetine 20 mg tablet 20 mg PO DAILY #90 tabs 03/27/24 dextroamphetamine-amphetamine ER 5 5 mg PO QAM #30 caps 04/17/24 mg 24hr capsule,extend release ondansetron 4 mg disintegrating 4 mg PO Q8H PRN nausea and 05/21/24 tablet vomiting #10 tabs Allergies Allergy/AdvReac Type Severity Reaction Status Date / Time luciano Allergy Severe Anaphylaxis Verified 03/19/24 15:29 venom-honey bee Allergy Severe SWOLLEN Verified 03/19/24 15:29 [bee venom (honey bee)] TONGUE AND THROAT BUT NOT ANAPHALAXIS gabapentin Allergy Unknown MY Verified 03/19/24 15:29 THOUGHT IT MADE ME ACT WERID lidocaine AdvReac Severe sanchez - Verified 03/19/24 15:29 rash duloxetine AdvReac Intermediate Confusion Verified 03/19/24 15:59 nortriptyline AdvReac Intermediate Anxiety Verified 03/19/24 15:58 pregabalin [From LYRICA] AdvReac Intermediate 'WELTS ON Verified 03/19/24 15:29 MY BODY' cyclobenzaprine AdvReac Unknown Anxiety Verified 03/19/24 15:29 [From FLEXERIL] hydroxyzine AdvReac Unknown PT STATES Verified 03/19/24 15:29 EYES DRIES ME UP venlafaxine AdvReac Unknown MADE MY Verified 03/19/24 15:29 BLOOD PRESSURE HIGH trazodone AdvReac heart Verified 03/19/24 15:29 palpatations fake sugar Allergy Unknown blotchy Uncoded 03/19/24 15:29 Review of Systems Review of Systems ROS Unobtainable: All systems reviewed & are unremarkable except as noted in HPI and below Patient History Medical History History of cervical cancer Gout Age-related osteoporosis without current pathological fracture Venous (peripheral) insufficiency Coronary artery disease Recurrent falls GERD without esophagitis Chronic kidney disease, stage 3b Polyneuropathy, unspecified Mixed hyperlipidemia Essential hypertension Type 2 diabetes mellitus with cardiac complication Insomnia Obstructive sleep apnea Central sleep apnea Vaginal atrophy Hypertensive urgency Generalized anxiety disorder GERD (gastroesophageal reflux disease) (1980) Esophageal stricture (09/2017) Pancreatitis (2010) Spinal stenosis Shoulder pain Lumbar spine pain Chronic headaches ADHD (attention deficit hyperactivity disorder) Chronic cough Cataract Chicken pox Hyperlipidemia (1991) Hypertension (1991) Kidney stones Scoliosis COPD (chronic obstructive pulmonary disease) Anxiety Sarcoidosis History of blood transfusion (~07/1981) 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 2 diabetes mellitus with diabetic polyneuropathy (07/22/15) Fibromyalgia (06/24/15) Influenza B Back pain Weakness of both legs Right fibular fracture Trichotillomania Major depressive disorder, recurrent, moderate Post-traumatic stress disorder, chronic Surgical History Status post cataract extraction S/P dilatation of esophageal stricture (09/2017) Anesthesia Status post delivery (05/02/85) History of tonsillectomy (1967) Status post cholecystectomy (02/1985) Status post hysterectomy (1986) Family History Brother Age: 67 Diabetes mellitus Child Age: 43 Asthma Child Heart defect Father Age: 87 Hypertension Cirrhosis of liver Mother Heart disease High cholesterol Amyloidosis Sister Age: 64 Diabetes mellitus Heart disease Sister Heart disease Social History household members: spouse Smoking Status: Current some day smoker alcohol intake: never Smoking Status: Current some day smoker alcohol intake frequency: holidays/special occasions only Substance Use Type: former substance user Exam Initial Vital Signs Initial Vital Signs: Vital Signs Temperature 98 F 05/20/24 20:12 Pulse Rate 114 H 05/20/24 20:12 Respiratory Rate 24 05/20/24 20:12 Blood Pressure 139/84 05/20/24 20:12 Pulse Oximetry 99 05/20/24 20:12 Oxygen Delivery Method Room Air 05/20/24 20:12 Const General: ill appearing (Chronically ill-appearing) HENMT Head: normal to inspection and normocephalic Resp Effort & Inspection: normal respiratory effort Auscultation: clear to auscultation bilaterally Cardio Rate: regular rate Rhythm: regular rhythm GI Inspection: normal to inspection and non-distended Palpation: soft, No firm, No guarding and tender (Upper abdomen) Skin General: no rashes or lesions noted Neuro General: patient alert, patient awake, patient oriented x3 and moves all extremities Extrem General: normal to inspection and capillary refill normal Scores GCS [place] coma scale eye opening: Spontaneous [place] coma scale verbal response: Orientated Ty[place] coma scale motor response: Obey commands [place] coma scale total score: 15 Course Orders Ordered: ED Orders 05/20/24 21:45 Complete Blood Count AUTO DIFF Stat Comprehensive Metabolic Panel Stat Ketones (Beta-Hydroxybutyrate) Stat Lactate (Lactic Acid) Stat Lipase Stat Magnesium Stat Phosphorous Stat 05/20/24 21:55 Ictotest Urine Stat Urinalysis and Microscopic Stat 05/20/24 22:59 VBG [Venous Blood Gas] STAT 05/20/24 23:40 CT kidney ureter bladder (KUB) Stat 05/20/24 23:54 Blood Culture Stat Discontinued Medications Hydrocodone Bitart/Acetaminophen (Hydrocodone/Acet 5/325 Tablet) 1 tab PO NOW ONE Stop: 05/21/24 02:33 Last Admin: 05/21/24 02:47 Dose: 1 tab Documented By: BRIANNA Hydrocodone Bitart/Acetaminophen (Hydrocodone/Acet 5/325 Prepack) 1 bottle MISC DIRECTED ONE Stop: 05/21/24 02:33 Last Admin: 05/21/24 02:48 Dose: 1 bottle Documented By: BRIANNA Fluconazole (Fluconazole 100 Mg Tablet) 100 mg PO NOW ONE Stop: 05/21/24 02:33 Last Admin: 05/21/24 02:47 Dose: 100 mg Documented By: BRIANNA Sodium Chloride (Normal Saline 0.9%) 1,000 mls @ 1,000 mls/hr IV BOLUS ONE Stop: 05/21/24 00:38 Last Infusion: 05/21/24 01:45 Dose: Infused Documented By: Admin: 05/20/24 23:57 Dose: 1,000 mls/hr Documented By: BRIANNA Ceftriaxone Sodium 1,000 mg/ (Sodium Chloride) 100 mls @ 200 mls/hr IV NOW ONE Stop: 05/20/24 23:55 Last Infusion: 05/21/24 01:45 Dose: Infused Documented By: Admin: 05/21/24 00:47 Dose: 200 mls/hr Documented By: BRIANNA Morphine Sulfate (Morphine 4 Mg/Ml Inj) 4 mg IV NOW ONE Stop: 05/20/24 23:40 Last Admin: 05/20/24 23:57 Dose: 4 mg Documented By: BRIANNA Ondansetron HCl (Ondansetron 4 Mg Odt) 4 mg SL NOW PRN PRN Reason: Nausea And Vomiting Last Admin: 05/20/24 20:23 Dose: 4 mg Documented By: DERRICK Ondansetron HCl (Ondansetron 4 Mg/2 Ml Inj) 4 mg IV NOW ONE Stop: 05/20/24 23:20 Last Admin: 05/20/24 23:30 Dose: 4 mg Documented By: BRIANNA Ondansetron HCl (Ondansetron 4 Mg Odt Prepack) 1 bottle MISC DIRECTED ONE Stop: 05/21/24 02:33 Last Admin: 05/21/24 02:48 Dose: 1 bottle Documented By: BRIANNA Vital Signs Vital signs: Vital Signs - 8 hr 05/20/24 22:01 05/20/24 22:01 05/20/24 22:30 Temperature Pulse Rate 69 96 H Respiratory Rate 18 18 Blood Pressure 110/69 Pulse Oximetry 97 100 Oxygen Delivery Method 05/20/24 22:34 05/20/24 22:34 05/20/24 22:38 Temperature 98.4 F Pulse Rate 103 H Respiratory Rate 20 Blood Pressure 206/103 H Pulse Oximetry 99 Oxygen Delivery Method 05/20/24 23:00 05/20/24 23:00 05/20/24 23:30 Temperature Pulse Rate 103 H Respiratory Rate 18 Blood Pressure 197/104 H 206/95 H Pulse Oximetry 100 Oxygen Delivery Method 05/20/24 23:30 05/21/24 00:00 05/21/24 00:00 Temperature Pulse Rate 92 H 97 H Respiratory Rate 18 18 Blood Pressure 199/99 H Pulse Oximetry 99 99 Oxygen Delivery Method 05/21/24 00:30 05/21/24 00:49 05/21/24 00:49 Temperature Pulse Rate 88 82 Respiratory Rate 20 27 H Blood Pressure 212/96 H Pulse Oximetry 97 97 Oxygen Delivery Method 05/21/24 01:00 05/21/24 01:00 05/21/24 01:30 Temperature Pulse Rate 79 86 Respiratory Rate 25 H 18 Blood Pressure 213/92 H Pulse Oximetry 97 99 Oxygen Delivery Method 05/21/24 01:43 05/21/24 01:43 05/21/24 02:00 Temperature Pulse Rate 84 91 H Respiratory Rate 18 22 Blood Pressure 229/98 H Pulse Oximetry 97 98 Oxygen Delivery Method Room Air 05/21/24 02:03 05/21/24 02:04 05/21/24 02:04 Temperature Pulse Rate 87 89 Respiratory Rate 21 21 Blood Pressure 238/100 H Pulse Oximetry 98 99 Oxygen Delivery Method Room Air 05/21/24 02:30 05/21/24 02:31 05/21/24 02:31 Temperature Pulse Rate 85 82 Respiratory Rate 22 24 Blood Pressure 214/88 H Pulse Oximetry 99 98 Oxygen Delivery Method Room Air MDM - Nausea/Vomiting/Diarrhea Lab Data Attestation: I reviewed the patient's lab results. 05/20/24 21:45 05/20/24 21:45 Labs: Lab Results 05/20/24 05/20/24 05/21/24 Range/Units 21:45 21:55 00:40 WBC 14.5 H (4.5-11.0) X10^3/uL RBC 4.81 (4.0-5.2) X10^6/uL Hgb 14.2 (12.0-16.0) g/dL Hct 42.7 (36-46) % MCV 88.8 (80-100) fL MCH 29.4 (26-34) PG MCHC 33.1 (30-36) % RDW 15.9 H (11.6-14.8) % Plt Count 277 (150-400) X10^3/uL Neut % (Auto) 72.7 (50-75) % Lymph % (Auto) 21.6 L (25-40) % Walsh % (Auto) 4.5 (3-14) % Eos % (Auto) 0.5 L (2-4) % Baso % (Auto) 0.7 (0-2) % Neut # (Auto) 87508 H (3075-2434) /uL Lymph # (Auto) 3100 (9083-3708) /uL Walsh # (Auto) 700 (0-900) /uL Eos # (Auto) 100 (0-450) /uL Baso # (Auto) 100 (0-100) /uL Sodium 141 (137-145) mmol/L Potassium 3.6 (3.4-5.1) mmol/L Chloride 108 H (98-107) mmol/L Carbon Dioxide 17 L (22-32) mmol/L BUN 37 H (7-17) mg/dL Creatinine 2.82 H (0.52-1.04) mg/dL Estimated GFR 18 L (>60) mL/min BUN/Creatinine Ratio 13.1 (6-22) Glucose 206 H (80-110) mg/dL Lactate 3.3 H 2.0 (0.7-2.1) mmol/L Calcium 9.8 (8.4-10.2) mg/dL Phosphorus 4.3 H (2.8-4.1) mg/dL Magnesium 2.1 (1.6-2.3) mg/dL Total Bilirubin 0.9 (0.2-1.3) mg/dL AST 38 H (14-36) IU/L ALT 25 (<35) IU/L Alkaline Phosphatase 297 H (38-126) U/L Total Protein 9.3 H (6.3-8.2) g/dL Albumin 4.6 (3.5-5.0) g/dL Globulin 4.7 H (1.7-4.1) g/dL Albumin/Globulin Ratio 1.0 (1.0-2.8) Lipase 201 (23-300) U/L Urine Color Yellow Urine Appearance Sl cloudy Urine pH 5.5 (4.5-8.0) Ur Specific [place] >=1.030 H (1.000-1.035) Urine Protein 2+ H (Negative) Urine Glucose (UA) Negative (Negative) g/dL Urine Ketones Trace H (NEGATIVE) Urine Occult Blood Negative (Negative) Urine Nitrate Negative (Negative) Urine Bilirubin 1+ H (NEGATIVE) Ur Bilirubin Confirm Negative (Negative) Urine Urobilinogen 0.2 (0.2) E.U./dL Ur Leukocyte Esterase Negative (NEGATIVE) Urine RBC 0-1/hpf (0-5/HPF) Urine WBC 0-1/hpf (0-5/HPF) Ur Squamous Epith Cells >30 /hpf H (0-5/HPF) Urine Bacteria Many (>30) H (None) Hyaline Casts 1-5/lpf (None) Urine Yeast 1-5/hpf H (None) Ur Culture Indicated? Cult not indicated Vol Urine Centrifuged 10ml (spun) Ketones 0.61 H (<0.27) mmol/L Point of Care Testing Glucose POC [address] scan - abdomen/pelvis: Radiologist's Impression: PROCEDURE: CT KIDNEY URETER BLADDER (KUB) INDICATIONS: Left flank pain eval for stone TECHNIQUE: Axial sections were acquired from the lung bases to the pubic symphysis. Coronal and sagittal reformats were performed. For radiation dose reduction, the following was used: automated exposure control, adjustment of mA and/or kV according to patient size. COMPARISON: [facility], CT, CT KIDNEY URETER BLADDER (KUB), 10/24/2022, 16:06. FINDINGS: Image quality: Diagnostic. Peritoneum: No pneumoperitoneum or ascites. Bones: No acute osseous abnormality. Thoracolumbar levocurvature with the apex at L2. Lower Chest: No acute abnormality. Liver: Macronodular contour of the liver. Normal size. Gallbladder: Status post cholecystectomy. Biliary tree: Mild extrahepatic biliary ductal dilatation, expected status post cholecystectomy. Pancreas: Within normal limits. Spleen: Normal in size and contour. Kidneys: Atrophic appearance of the kidneys. No hydronephrosis or obstructive urolithiasis. Adrenals: No adrenal nodularity. Bladder: Normal in size and wall thickness. : No acute abnormality. Stomach: Normal in size and contour. Small hiatal hernia. Bowel: Normal in diameter without any bowel obstruction. Appendix within normal limits. Lymph Nodes: No retroperitoneal, mesenteric, or inguinal lymphadenopathy. Vascular: No abdominal aortic aneurysm. The visualized arterial vasculature is patent. Soft Tissues: No acute abnormality. IMPRESSION: 1. No obstructing stones or hydronephrosis. 2. Cirrhotic morphology of the liver. 3. Status post cholecystectomy. [facility] Narrative Medical decision making narrative: Patient was a CT scan which shows no acute pathology. She has a leukocytosis which obviously is somewhat of a concern for an infection however could also be because of stress reaction due to 4 days of vomiting. She does not not have a specific source of infection noticed on the exam. Clinically does not have pneumonia. Is afebrile. No headache. No sinus congestion. No neck pain. No diarrhea. No skin changes concerning for zoster. She does have bacteria in her urine however also quite a few epi cells. I suspect that this is a contaminated sample. It is positive for yeast. She does not have symptoms consistent with a yeast infection. She was given 1 dose of Diflucan here in the ER. After nausea medication and pain medication she reported improvement of symptoms. Lactate improved with fluids and I suspect this is from the vomiting. We will hold on antibiotics for now. Blood cultures were pending. Patient was now tolerating oral intake. Will discharge patient home with strict return precautions. She expressed understanding and agreement with the plan. Discharge Plan Departure Patient Disposition: Home Clinical Impression: Abdominal pain, Nausea, Hypertension, Yeast infection Instructions: DI for Abdominal Pain-Adult, DI for Nausea -- Adult Activity Restrictions/Additional Instructions: Recommend that you contact your primary care doctor for follow-up. Continue to take all of your medications as directed. Return to the emergency department for new or worsening symptoms. Prescriptions: New ondansetron 4 mg tablet,disintegrating 4 mg PO Q8H PRN (Reason: nausea and vomiting) Qty: 10 0RF No Action prenat.vits,jeremy,xnd-qhsb-islhg tablet 1 tab PO DAILY quetiapine 50 mg tablet 100 mg PO BEDTIME Qty: 180 3RF vortioxetine 20 mg tablet 20 mg PO DAILY Qty: 90 3RF prazosin 1 mg capsule 5 mg PO BEDTIME Qty: 150 3RF cyclosporine [Restasis] 1 EACH dropperette 1 drp OPHTH BID Qty: 0 insulin glargine [Lantus Solostar U-100 Insulin] 100 unit/mL (3 mL) insulin pen 30 unit SUBCUT HS Qty: 1 3RF insulin lispro [Humalog KwikPen Insulin] 100 unit/mL insulin pen 10 - 15 unit SUBCUT ACHS Qty: 1 3RF (DME) DISABLED PARKING PERMIT See Rx Instructions .ROUTE .MEDSUPPLY Qty: 1 0RF Rx Instructions: I FIND THIS PATIENT TO BE MEDICALLY DISABLED AND QUALIFIED FOR DISABLE PARKING INDICATED, AND SIGNED ON THE ACCOMPANYING [email or web address] APPLICATION FOR INDIVIDUALS rosuvastatin 40 mg tablet 40 mg PO DAILY Qty: 90 3RF estradiol 0.05 mg/24 hr patch semiweekly 1 patch topical 2XW Qty: 24 3RF clonazepam 0.5 mg tablet 0.5 mg PO BID Qty: 60 1RF dextroamphetamine-amphetamine 5 mg capsule,extended release 24hr 5 mg PO QAM Qty: 30 0RF diphenhydramine HCl [Benadryl Allergy] 25 mg tablet 12.5 mg PO BID PRN (Reason: pruritis) famotidine 40 mg tablet 40 mg PO DAILY triamcinolone acetonide 0.1 % cream 1 applic topical BID Qty: 80 1RF pantoprazole [Protonix] 40 mg tablet,delayed release (DR/EC) 80 mg PO QAM Qty: 180 3RF Rx Instructions: BEFORE BREAKFAST. albuterol sulfate 2.5 mg /3 mL (0.083 %) solution for nebulization 2.5 mg INHALATION Q6H PRN (Reason: shortness of breath or wheezing) Qty: 90 11RF nystatin-triamcinolone 100,000-0.1 unit/gram-% ointment See Rx Instructions TOP BID Qty: 30 0RF Dose Instruction: TOP BID; Apply to affected area BID 2-3 weeks Rx Instructions: apply small amount TOP BID; Apply to affected area BID 2-3 weeks budesonide 0.5 mg/2 mL suspension for nebulization 0.5 mg inhalation BID Qty: 360 3RF aspirin 81 mg tablet,delayed release (DR/EC) 81 mg PO DAILY nitroglycerin 0.4 mg tablet, sublingual 0.4 mg sublingual Q5-15M PRN (Reason: Chest Pain) Rx Instructions: do not exceed 3 doses per episode epinephrine 0.3 mg/0.3 mL auto-injector 0.3 mg IM PRN PRN (Reason: Anaphylaxis) Qty: 1 11RF (DME) Dexcom G6 Sensor Device See Rx Instructions .ROUTE .MEDSUPPLY Qty: 3 Patient Comments: CHANGE EVERY 10 DAYS Rx Instructions: As directed; change every 10 days. torsemide 20 mg tablet 20 mg PO DAILY carvedilol 25 mg tablet 25 mg PO BID Rx Instructions: must administer with a meal/food ondansetron 4 mg tablet,disintegrating 4 mg Sublingual Q6HP PRN (Reason: nausea and vomiting) Qty: 120 2RF Rx Instructions: 1-2 tabs every 6 hours Savella 12.5 mg tablet 12.5 mg PO BID Qty: 60 2RF albuterol sulfate [Ventolin HFA] 90 mcg/actuation HFA aerosol inhaler 1 puff inhalation Q6H PRN (Reason: shortness of breath or wheezing) Qty: 18 6RF tramadol 50 mg tablet 50 mg PO Q6H PRN (Reason: pain) Qty: 40 1RF tizanidine 4 mg tablet 4 mg PO Q8H PRN (Reason: muscle spasticity) Qty: 120 3RF allopurinol 300 mg tablet 300 mg PO DAILY Qty: 90 3RF Glucagon Emergency Kit (human) 1 mg Recon Soln 1 mg SUBCUT Q20M PRN (Reason: Hypoglycemia) Referrals: Jigar Bird MD [Primary Care Provider] - Stand Alone Forms: Patient Portal/API
[2024-05-20] MEDS: SODIUM CHLORIDE 0.9% 1,000 ML 1000 ML IV (23:57)
[2024-05-20] MEDS: MORPHINE 4 MG/ML INJ IV (23:57)
[2024-05-21] VITALS (11 sets, daily range): BP systolic 199–238; BP diastolic 88–100; PULSE 79–97; RESP 18–27; O2SAT 97–99
[2024-05-21] MEDS: cefTRIAXone 1,000 MG in SODIUM CHLORIDE 0.9% 100 ML 200 MG IV (00:47)
[2024-05-21 01:02] LABS: Reflexed Lactate in 2 Hours Y
--- NOTE | 2024-05-21 02:13 | PC.NURSE ---
Patient's BP 238/100. Dr. Whipple made aware of the BP and how it has been trending up. Awaiting orders.
[2024-05-21] MEDS: HYDROCODONE/ACET 5/325 TABLET 1 TAB PO (02:47)
[2024-05-21] MEDS: FLUCONAZOLE 100 MG TABLET PO (02:47)
[2024-05-21] MEDS: HYDROCODONE/ACET 5/325 PREPACK 1 BOTTLE MISC (02:48)
[2024-05-21] MEDS: ONDANSETRON 4 MG ODT PREPACK 1 BOTTLE MISC (02:48)
[2024-05-21 10:01] LABS: Base Excess VBG -1.5 mmol/L (0-4); HCO3 VBG 22 mmol/L (24-28); Oxygen Saturation VBG 49 % (70-75); PCO2 VBG 31.6 mmHg (45-50); PO2 VBG 25 mmHg (35-45); Total CO2 VBG 21 mmol/L (24-29); pH VBG 7.44 (7.33-7.43)
== END 2024-05-21 02:58 | disposition home or self-care (01) ==
PROVIDERS: Emergency Provider Emergency Medicine; PCP Internal Medicine
DX: R10.10 Upper abdominal pain, unspecified (principal); R11.2 Nausea with vomiting, unspecified; I10 Essential (primary) hypertension; B37.9 Candidiasis, unspecified; Z79.899 Other long term (current) drug therapy
CPT/HCPCS: 36415; 74176; 80053; 81001; 82009; 82805; 82962; 83605; 83690; 83735; 84100; 85025; 87040; 96361; 96365; 96375; 99284; J0696; J2270; J2405

== ENCOUNTER → 2024-07-11 23:32 | Outpatient (ROUT) | payer OTHER, MEDICAID, SELFPAY ==
[2023-09-03 08:36] VITALS: BMI 24.8
[2024-07-12 00:26] LABS: Clostridium Difficile Tox PCR Positive for C. diff (Negative)
== END ==
PROVIDERS: PCP Internal Medicine; Visit Provider Registered Nurse
DX: R19.7 Diarrhea, unspecified (principal)
CPT/HCPCS: 87493

== ENCOUNTER 2024-08-08 17:15 | Emergency (ER) | payer OTHER, SELFPAY ==
[2023-09-03 08:36] VITALS: BMI 24.8
[2024-08-08] VITALS (68 sets, daily range): BP systolic 72–108; BP diastolic 42–56; PULSE 55–71; RESP 11–40; TEMP 34.8–36; O2SAT 95–99; BMI 28.0
--- NOTE | 2024-08-08 18:06 | DI.RAD.S_ITS ---
PROCEDURE: XR CHEST 1V INDICATIONS: suspected sepsis TECHNIQUE: One view of the chest was acquired. COMPARISON: [facility], CR, XR CHEST 1V, 11/11/2023, 14:32. [facility], CR, XR CHEST 1V, 06/14/2021, 16:52. FINDINGS: Surgical changes and devices: Clips in the right upper quadrant. Lungs and pleura: Lungs are clear. No pleural effusions or pneumothorax. Mediastinum: Mediastinal contours appear normal. Heart size is normal. Bones and chest wall: No suspicious bony lesions. Scoliosis. Overlying soft tissues appear unremarkable. IMPRESSION: No acute cardiopulmonary abnormality is seen. Dictated by: Chinedu Jain M.D. on 08/08/2024 at 19:42 Approved by: Chinedu Jain M.D. on 08/08/2024 at 19:43
[2024-08-08] MEDS: SODIUM CHLORIDE 0.9% 1,000 ML 1000 ML IV ×2 (18:10→18:43)
--- NOTE | 2024-08-08 18:14 | EKG_ITS ---
[address] [address] Test Date: 2024-08-08 Pat Name: Keila Frey Department: Room: Gender: Female Bag Machine Tender: FATUMA : 1965 Requested By: Order Number: [id number] Reading MD: Montana Candelaria Measurements Intervals [place] Rate: 62 P: 42 UT: 184 QRS: 2 QRSD: 92 T: 34 QT: 464 QTc: 470 Interpretive Statements Normal sinus rhythm Electronically Signed On 08-08-2024 18:23:09 PST by Montana Candelaria
[2024-08-08 18:30] LABS: Add Manual Diff / Slide Review NO; Basophils Absolute Auto 100 /uL (0-100); Basophils Percent Auto 1.1 % (0-2); Eosinophils Absolute Auto 100 /uL (0-450); Hematocrit 30.9 % (36-46); Hemoglobin 10.1 g/dL (12.0-16.0); Lymphocytes Absolute Auto 2000 /uL (1100-4500); Lymphocytes Percent Auto 15.3 % (25-40); Mean Corpuscular HGB Conc 32.5 % (30-36); Mean Corpuscular Hemoglobin 30.7 PG (26-34); Mean Corpuscular Volume 94.3 fL (80-100); Monocytes Absolute Auto 800 /uL (0-900); Monocytes Percent Auto 6.6 % (3-14); Neutrophils Absolute Auto 9800 /uL (1500-7000); Platelet Count 145 X10^3/uL (150-400); Red Blood Cell Count 3.28 X10^6/uL (4.0-5.2); Red Cell Distribution Width 18.4 % (11.6-14.8); White Blood Cell Count 12.8 X10^3/uL (4.5-11.0)
[2024-08-08 18:34] LABS: Alanine Aminotransferase 302 IU/L (<35); Albumin 3.8 g/dL (3.5-5.0); Alkaline Phosphatase 806 U/L (38-126); Bilirubin Total 0.6 mg/dL (0.2-1.3); Blood Urea Nitrogen 86 mg/dL (7-17); Calcium 8.8 mg/dL (8.4-10.2); Carbon Dioxide 12 mmol/L (22-32); Chloride 107 mmol/L (98-107); Estimated Glomerular Filt Rate 8 mL/min (>60); Globulin 3.7 g/dL (1.7-4.1); Glucose 109 mg/dL (80-110); HEMOLYSIS 18 (0-50); Lipase 142 U/L (23-300); Potassium 5.1 mmol/L (3.4-5.1); Sodium 130 mmol/L (137-145); Total Protein 7.5 g/dL (6.3-8.2)
[2024-08-08 18:35] LABS: Lactate (Lactic Acid) 1.1 mmol/L (0.7-2.1)
[2024-08-08 18:37] LABS: Prothrombin Time 10.9 SECONDS (9.4-12.5)
[2024-08-08 18:39] LABS: PTT Partial Thromboplastin Tim 40 SECONDS (25.1-36.5)
[2024-08-08 18:42] LABS: Aspartate Aminotransferase 931 IU/L (14-36)
[2024-08-08 18:52] LABS: Procalcitonin 1.07 ng/mL (<0.5)
--- NOTE | 2024-08-08 19:18 | ED_ITS ---
HPI - Weakness <Wilson Godoy MD - Last Filed: 08/11/24 03:11> General Chief complaint: Weakness Stated complaint: Dehydrated, No appetite, Recently had 2 strokes Time Seen by Provider: 08/08/24 18:40 Source: patient and family Mode of arrival: Ambulatory History of Present Illness HPI Narrative: (history from patient and at bedside) 59-year-old female recently treated for 2 weeks stay [facility] with diagnosis of two strokes, was discharged to [facility] for 2 weeks, where she was diagnosed and treated for C diff them pill to be cured, home for 1 week now, noted today to have more lethargy, due case activity, decreased recent eating and drinking. No stools per family members. No black or red stools. No cough or shortness of breath. No falls injury trauma known. Related Data Home Medications Medication Instructions Recorded Confirmed prenat.vits,jeremy,[id number] 1 tab PO DAILY 01/18/18 08/09/24 glucagon (human recombinant) 1 mg 1 mg SUBCUT Q20M PRN Hypoglycemia 10/06/18 08/09/24 solution for injection (Glucagon Emergency Kit) aspirin 81 mg tablet,delayed 81 mg PO DAILY 03/21/21 08/09/24 release nitroglycerin 0.4 mg sublingual 0.4 mg sublingual Q5-15M PRN Chest 03/21/21 08/09/24 tablet Pain blood-glucose sensor (Arynga G6 #3 ea 06/21/22 08/09/24 Sensor device) famotidine 40 mg tablet 40 mg PO DAILY 03/20/23 08/09/24 amitriptyline 25 mg tablet 25 mg PO DAILY 08/09/24 08/09/24 amlodipine 10 mg tablet 10 mg PO DAILY 08/09/24 08/09/24 carvedilol 25 mg tablet 25 mg PO BID 08/09/24 08/09/24 clonazepam 0.5 mg tablet 0.5 mg PO BID PRN Anxiety 08/09/24 08/09/24 clopidogrel 75 mg tablet 75 mg PO DAILY 08/09/24 08/09/24 cyclosporine 0.05 % eye drops in a 1 drp ophthalmic (eye) 08/09/24 dropperette dicyclomine 20 mg tablet 20 mg PO QID PRN stomach cramping 08/09/24 08/09/24 ferrous sulfate 325 mg (65 mg 325 mg PO DAILY 08/09/24 08/09/24 iron) tablet lisinopril 20 mg tablet 20 mg PO DAILY 08/09/24 08/09/24 metoclopramide HCl 5 mg tablet 5 mg PO QAC 08/09/24 08/09/24 potassium chloride 20 mEq 20 meq PO BID 08/09/24 08/09/24 tablet,extended release spironolactone 25 mg tablet 12.5 mg PO DAILY 08/09/24 08/09/24 torsemide 20 mg tablet 20 mg PO ONCE HS 08/09/24 08/09/24 torsemide 40 mg tablet 40 mg PO QAM 08/09/24 08/09/24 vortioxetine 20 mg tablet 20 mg PO DAILY 08/09/24 08/09/24 (Trintellix) Previous Rx's Medication Instructions Recorded insulin glargine 100 unit/mL (3 30 unit (0.3 mL) SUBCUT HS #1 mL 05/31/18 mL) subcutaneous pen (Lantus Solostar U-100 Insulin) insulin lispro 100 unit/mL 10 - 15 unit (0.1 - 0.15 mL) 05/31/18 subcutaneous pen (Humalog KwikPen SUBCUT ACHS ##1 (U-100) Insulin) nystatin-triamcinolone 100,000 See Rx Instructions topical BID 09/24/18 unit/gram-0.1 % topical ointment #30 grams epinephrine 0.3 mg/0.3 mL 0.3 mg (0.3 mL) IM PRN PRN 03/21/21 injection, auto-injector Anaphylaxis #1 ea DISABLED PARKING PERMIT #1 ea 06/08/21 triamcinolone acetonide 0.1 % 1 applic topical BID #80 grams 03/20/23 topical cream rosuvastatin 40 mg tablet 40 mg PO DAILY #90 tabs 03/23/23 quetiapine 50 mg tablet 100 mg (2 x 50 mg) PO BEDTIME #180 08/16/23 tabs estradiol 0.05 mg/24 hr semiweekly 1 patch topical 2XW #24 patches 08/21/23 transdermal patch albuterol sulfate 2.5 mg/3 mL 2.5 mg (3 mL) inhalation Q6H PRN 09/20/23 (0.083 %) solution for nebulization shortness of breath or wheezing #90 mL pantoprazole 40 mg tablet,delayed 80 mg (2 x 40 mg) PO QAM #180 tabs 09/20/23 release (Protonix) albuterol sulfate 90 mcg/actuation 1 puff inhalation Q6H PRN 03/19/24 aerosol inhaler (Ventolin HFA) shortness of breath or wheezing #18 grams allopurinol 300 mg tablet 300 mg PO DAILY #90 tabs 03/19/24 ondansetron 4 mg disintegrating 4 mg sublingual Q6HP PRN nausea 03/19/24 tablet and vomiting #120 tabs tizanidine 4 mg tablet 4 mg PO Q8H PRN muscle spasticity 03/19/24 #120 tabs tramadol 50 mg tablet 50 mg PO Q6H PRN pain #40 tabs 03/19/24 dextroamphetamine-amphetamine ER 5 5 mg PO QAM #30 caps 04/17/24 mg 24hr capsule,extend release ondansetron 4 mg disintegrating 4 mg PO Q8H PRN nausea and 05/21/24 tablet vomiting #10 tabs milnacipran 12.5 mg tablet 12.5 mg PO BID #60 tabs 06/23/24 (Savella) prazosin 1 mg capsule 5 mg (5 x 1 mg) PO ONCE PM for 07/23/24 nightmares #150 caps Allergies Allergy/AdvReac Type Severity Reaction Status Date / Time luciano Allergy Severe Anaphylaxis Verified 03/19/24 15:29 venom-honey bee Allergy Severe SWOLLEN Verified 03/19/24 15:29 [bee venom (honey bee)] TONGUE AND THROAT BUT NOT ANAPHALAXIS gabapentin Allergy Unknown MY Verified 03/19/24 15:29 THOUGHT IT MADE ME ACT WERID lidocaine AdvReac Severe sanchez - Verified 03/19/24 15:29 rash duloxetine AdvReac Intermediate Confusion Verified 03/19/24 15:59 nortriptyline AdvReac Intermediate Anxiety Verified 03/19/24 15:58 pregabalin [From LYRICA] AdvReac Intermediate 'WELTS ON Verified 03/19/24 15:29 MY BODY' cyclobenzaprine AdvReac Unknown Anxiety Verified 03/19/24 15:29 [From FLEXERIL] hydroxyzine AdvReac Unknown PT STATES Verified 03/19/24 15:29 EYES DRIES ME UP venlafaxine AdvReac Unknown MADE MY Verified 03/19/24 15:29 BLOOD PRESSURE HIGH trazodone AdvReac heart Verified 03/19/24 15:29 palpatations fake sugar Allergy Unknown blotchy Uncoded 03/19/24 15:29 Patient History <Wilson Godoy MD - Last Filed: 08/11/24 03:11> Medical History History of cervical cancer Gout Age-related osteoporosis without current pathological fracture Venous (peripheral) insufficiency Coronary artery disease Recurrent falls GERD without esophagitis Chronic kidney disease, stage 3b Polyneuropathy, unspecified Mixed hyperlipidemia Essential hypertension Type 2 diabetes mellitus with cardiac complication Insomnia Obstructive sleep apnea Central sleep apnea Vaginal atrophy Hypertensive urgency Generalized anxiety disorder GERD (gastroesophageal reflux disease) (1980) Esophageal stricture (09/2017) Pancreatitis (2010) Spinal stenosis Shoulder pain Lumbar spine pain Chronic headaches ADHD (attention deficit hyperactivity disorder) Chronic cough Cataract Chicken pox Hyperlipidemia (1991) Hypertension (1991) Kidney stones Scoliosis COPD (chronic obstructive pulmonary disease) Anxiety Sarcoidosis History of blood transfusion (~07/1981) 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 2 diabetes mellitus with diabetic polyneuropathy (07/22/15) Fibromyalgia (06/24/15) Influenza B Back pain Weakness of both legs Right fibular fracture Trichotillomania Major depressive disorder, recurrent, moderate Post-traumatic stress disorder, chronic Surgical History Status post cataract extraction S/P dilatation of esophageal stricture (09/2017) Anesthesia Status post delivery (05/02/85) History of tonsillectomy (1967) Status post cholecystectomy (02/1985) Status post hysterectomy (1986) Family History Brother Age: 67 Diabetes mellitus Child Age: 43 Asthma Child Heart defect Father Age: 87 Hypertension Cirrhosis of liver Mother Heart disease High cholesterol Amyloidosis Sister Age: 64 Diabetes mellitus Heart disease Sister Heart disease Social History household members: spouse Smoking Status: Former smoker alcohol intake: never Smoking Status: Former smoker alcohol intake frequency: holidays/special occasions only Exam <Wilson Godoy MD - Last Filed: 08/11/24 03:11> Narrative Exam Narrative: GENERAL: Well-developed patient, in mild distress. HEAD: Atraumatic. Normocephalic. EYES: Pupils equal round and reactive. Extraocular motions intact. No scleral icterus. No injection or drainage. ENT: Nose without bleeding, purulent drainage. Throat without erythema, tonsillar hypertrophy or exudate. Airway patent. NECK: Trachea midline. Non tender CARDIOVASCULAR: Regular rate and rhythm without murmurs, gallops, or rubs. RESPIRATORY: Clear to auscultation. Breath sounds equal bilaterally. No wheezes, rales, or rhonchi. GASTROINTESTINAL: Abdomen soft, non-tender, nondistended. EXTREMITIES: No edema or joint tenderness. BACK: Nontender without deformity or crepitance. No flank tenderness. NEURO: AOx3. Motor functions grossly nonfocal SKIN: No rash or erythema of visible areas Initial Vital Signs Initial Vital Signs: Vital Signs Temperature 96.8 F L 08/08/24 17:44 Pulse Rate 55 L 08/08/24 17:44 Respiratory Rate 18 08/08/24 17:44 Blood Pressure 80/42 L 08/08/24 17:44 Pulse Oximetry 99 08/08/24 17:44 Oxygen Delivery Method Room Air 08/08/24 17:44 <Cliff Whipple DO - Last Filed: 08/14/24 18:03> Initial Vital Signs Initial Vital Signs: Vital Signs Temperature 96.8 F L 08/08/24 17:44 Pulse Rate 55 L 08/08/24 17:44 Respiratory Rate 18 08/08/24 17:44 Blood Pressure 80/42 L 08/08/24 17:44 Pulse Oximetry 99 08/08/24 17:44 Oxygen Delivery Method Room Air 08/08/24 17:44 <Cora Jean DO - Last Filed: 08/11/24 07:31> Initial Vital Signs Initial Vital Signs: Vital Signs Temperature 96.8 F L 08/08/24 17:44 Pulse Rate 55 L 08/08/24 17:44 Respiratory Rate 18 08/08/24 17:44 Blood Pressure 80/42 L 08/08/24 17:44 Pulse Oximetry 99 08/08/24 17:44 Oxygen Delivery Method Room Air 08/08/24 17:44 Course <Wilson Godoy MD - Last Filed: 08/11/24 03:11> Orders Ordered: Discontinued Medications Allopurinol (Allopurinol 100 Mg Tablet) 300 mg PO DAILY [facility] Last Admin: 08/10/24 10:36 Dose: Not Given Documented By: Admin: 08/09/24 20:52 Dose: 300 mg Documented By: MOON Amitriptyline HCl (Amitriptyline 25 Mg Tablet) 25 mg PO DAILY [facility] Last Admin: 08/10/24 10:36 Dose: Not Given Documented By: Admin: 08/09/24 20:52 Dose: 25 mg Documented By: MOON Clonazepam (Clonazepam 0.5 Mg Tablet) 0.5 mg PO BID PRN PRN Reason: Anxiety Famotidine (Famotidine 20 Mg Tablet) 40 mg PO DAILY [facility] Last Admin: 08/10/24 10:36 Dose: Not Given Documented By: Admin: 08/09/24 20:53 Dose: 40 mg Documented By: MOON Famotidine (Famotidine 20 Mg/2 Ml Vial) 40 mg IV DAILY [facility] Sodium Chloride (Normal Saline 0.9%) 1,000 mls @ 1,000 mls/hr IV BOLUS ONE Stop: 08/08/24 19:05 Last Infusion: 08/08/24 18:41 Dose: Infused Documented By: Admin: 08/08/24 18:10 Dose: 1,000 mls/hr Documented By: MELISSA Sodium Chloride (Normal Saline 0.9%) 1,000 mls @ 1,000 mls/hr IV BOLUS ONE Stop: 08/08/24 19:40 Last Infusion: 08/08/24 19:45 Dose: Infused Documented By: Infusion: 08/08/24 19:20 Dose: 0 mls/hr Documented By: Admin: 08/08/24 18:43 Dose: 1,000 mls/hr Documented By: MELISSA Ceftriaxone Sodium 2,000 mg/ (Sodium Chloride) 100 mls @ 200 mls/hr IV NOW ONE Stop: 08/08/24 19:13 Last Infusion: 08/08/24 20:02 Dose: Infused Documented By: Admin: 08/08/24 19:32 Dose: 200 mls/hr Documented By: NAVEED Lactated Ringer's (Lactated Ringers) 1,000 mls @ 200 mls/hr IV CONT SYLVESTER Last Infusion: 08/10/24 03:35 Dose: Infused Documented By: Admin: 08/09/24 22:35 Dose: 200 mls/hr Documented By: Infusion: 08/09/24 22:18 Dose: Infused Documented By: Admin: 08/09/24 17:18 Dose: 200 mls/hr Documented By: MELISSA(2) Infusion: 08/09/24 17:09 Dose: Infused Documented By: MELISSA(2) Admin: 08/09/24 12:09 Dose: 200 mls/hr Documented By: Infusion: 08/09/24 05:45 Dose: Infused Documented By: Admin: 08/09/24 00:33 Dose: 200 mls/hr Documented By: Infusion: 08/09/24 00:32 Dose: Infused Documented By: Admin: 08/08/24 19:32 Dose: 200 mls/hr Documented By: NAVEED Calcium Gluconate 4.65 meq/ (Sodium Chloride) 60 mls @ 180 mls/hr IV NOW ONE Stop: 08/08/24 23:35 Last Infusion: 08/08/24 23:46 Dose: Infused Documented By: Admin: 08/08/24 23:22 Dose: 180 mls/hr Documented By: NAVEED Lactated Ringer's (Lactated Ringers) 1,000 mls @ 1,000 mls/hr IV BOLUS ONE Stop: 08/09/24 05:46 Last Infusion: 08/09/24 07:00 Dose: Infused Documented By: Admin: 08/09/24 05:45 Dose: 1,000 mls/hr Documented By: NAVEED Ceftriaxone Sodium 1,000 mg/ (Sodium Chloride) 100 mls @ 200 mls/hr IV NOW ONE Stop: 08/09/24 20:01 Last Infusion: 08/09/24 21:07 Dose: Infused Documented By: Admin: 08/09/24 20:37 Dose: 200 mls/hr Documented By: NAVEED Lactated Ringer's (Lactated Ringers) 1,000 mls @ 200 mls/hr IV CONT SYLVESTER Last Infusion: 08/10/24 13:42 Dose: Infused Documented By: Infusion: 08/10/24 05:35 Dose: 0 mls/hr Documented By: Admin: 08/10/24 03:37 Dose: 200 mls/hr Documented By: Infusion: 08/09/24 12:12 Dose: Infused Documented By: Admin: 08/09/24 07:01 Dose: 200 mls/hr Documented By: NAVEED Dextrose/Lactated Ringer's (Dextrose 5%-Lactated Ringers) 1,000 mls @ 200 mls/hr IV CONT [facility] Last Infusion: 08/10/24 09:55 Dose: 0 mls/hr Documented By: Admin: 08/10/24 05:34 Dose: 200 mls/hr Documented By: NAVEED Ceftriaxone Sodium 1,000 mg/ (Sodium Chloride) 100 mls @ 200 mls/hr IV NOW ONE Stop: 08/10/24 20:01 Lactated Ringer's (Lactated Ringers) 1,000 mls @ 125 mls/hr IV CONT [facility] Last Admin: 08/10/24 13:43 Dose: 125 mls/hr Documented By: ANSLEY Sodium Bicarbonate 150 meq/ (Dextrose) 1,150 mls @ 150 mls/hr IV CONT [facility] Last Admin: 08/10/24 14:10 Dose: 150 mls/hr Documented By: ANSLEY Ondansetron HCl (Ondansetron 4 Mg/2 Ml Inj) 4 mg IV NOW PRN PRN Reason: Nausea And Vomiting Ondansetron HCl (Ondansetron 4 Mg Odt) 4 mg SL NOW PRN PRN Reason: Nausea And Vomiting Prazosin HCl (Prazosin 1 Mg Capsule) 5 mg PO BEDTIME [facility] Last Admin: 08/09/24 21:01 Dose: Not Given Documented By: MOON Quetiapine Fumarate (Quetiapine 25 Mg Tablet) 100 mg PO BEDTIME [facility] Last Admin: 08/09/24 20:52 Dose: 100 mg Documented By: MOON Vital Signs Vital signs: Vital Signs - 8 hr 08/10/24 09:30 08/10/24 10:00 08/10/24 10:00 Temperature 98.2 F 98.2 F Pulse Rate 69 68 Respiratory Rate 10 L 10 L Blood Pressure 87/50 L Pulse Oximetry 96 97 08/10/24 10:27 08/10/24 10:27 08/10/24 10:30 Temperature 98.1 F 98.1 F Pulse Rate 67 68 Respiratory Rate 12 10 L Blood Pressure 94/50 L Pulse Oximetry 97 97 08/10/24 11:00 08/10/24 11:00 08/10/24 11:30 Temperature 97.9 F 97.9 F Pulse Rate 69 69 Respiratory Rate 10 L 12 Blood Pressure 95/53 L Pulse Oximetry 97 97 08/10/24 11:59 08/10/24 12:47 08/10/24 12:48 Temperature 97.7 F Pulse Rate 68 74 Respiratory Rate 13 18 Blood Pressure 111/54 L Pulse Oximetry 96 96 08/10/24 12:55 08/10/24 12:55 08/10/24 13:00 Temperature 94.1 F L Pulse Rate 74 Respiratory Rate 24 Blood Pressure 113/56 L 104/53 L Pulse Oximetry 99 08/10/24 13:00 08/10/24 13:30 08/10/24 14:00 Temperature 96.1 F L 97.3 F L 97.2 F L Pulse Rate 72 68 68 Respiratory Rate 15 15 14 Blood Pressure Pulse Oximetry 97 99 98 08/10/24 14:00 08/10/24 14:30 08/10/24 15:00 Temperature 97.3 F L 97.3 F L Pulse Rate 66 66 Respiratory Rate 12 11 L Blood Pressure 97/51 L Pulse Oximetry 98 97 08/10/24 15:00 08/10/24 15:30 08/10/24 16:00 Temperature 97.3 F L 97.3 F L Pulse Rate 69 68 Respiratory Rate 12 14 Blood Pressure 96/52 L Pulse Oximetry 96 96 08/10/24 16:00 Temperature Pulse Rate Respiratory Rate Blood Pressure 100/55 L Pulse Oximetry <Cliff Whipple DO - Last Filed: 08/14/24 18:03> Orders Ordered: Discontinued Medications Allopurinol (Allopurinol 100 Mg Tablet) 300 mg PO DAILY [facility] Last Admin: 08/10/24 10:36 Dose: Not Given Documented By: Admin: 08/09/24 20:52 Dose: 300 mg Documented By: MOON Amitriptyline HCl (Amitriptyline 25 Mg Tablet) 25 mg PO DAILY [facility] Last Admin: 08/10/24 10:36 Dose: Not Given Documented By: Admin: 08/09/24 20:52 Dose: 25 mg Documented By: MOON Clonazepam (Clonazepam 0.5 Mg Tablet) 0.5 mg PO BID PRN PRN Reason: Anxiety Famotidine (Famotidine 20 Mg Tablet) 40 mg PO DAILY [facility] Last Admin: 08/10/24 10:36 Dose: Not Given Documented By: Admin: 08/09/24 20:53 Dose: 40 mg Documented By: MOON Famotidine (Famotidine 20 Mg/2 Ml Vial) 40 mg IV DAILY [facility] Sodium Chloride (Normal Saline 0.9%) 1,000 mls @ 1,000 mls/hr IV BOLUS ONE Stop: 08/08/24 19:05 Last Infusion: 08/08/24 18:41 Dose: Infused Documented By: Admin: 08/08/24 18:10 Dose: 1,000 mls/hr Documented By: MELISSA Sodium Chloride (Normal Saline 0.9%) 1,000 mls @ 1,000 mls/hr IV BOLUS ONE Stop: 08/08/24 19:40 Last Infusion: 08/08/24 19:45 Dose: Infused Documented By: Infusion: 08/08/24 19:20 Dose: 0 mls/hr Documented By: Admin: 08/08/24 18:43 Dose: 1,000 mls/hr Documented By: MELISSA Ceftriaxone Sodium 2,000 mg/ (Sodium Chloride) 100 mls @ 200 mls/hr IV NOW ONE Stop: 08/08/24 19:13 Last Infusion: 08/08/24 20:02 Dose: Infused Documented By: Admin: 08/08/24 19:32 Dose: 200 mls/hr Documented By: NAVEED Lactated Ringer's (Lactated Ringers) 1,000 mls @ 200 mls/hr IV CONT SYLVESTER Last Infusion: 08/10/24 03:35 Dose: Infused Documented By: Admin: 08/09/24 22:35 Dose: 200 mls/hr Documented By: Infusion: 08/09/24 22:18 Dose: Infused Documented By: Admin: 08/09/24 17:18 Dose: 200 mls/hr Documented By: MELISSA(2) Infusion: 08/09/24 17:09 Dose: Infused Documented By: MELISSA(2) Admin: 08/09/24 12:09 Dose: 200 mls/hr Documented By: Infusion: 08/09/24 05:45 Dose: Infused Documented By: Admin: 08/09/24 00:33 Dose: 200 mls/hr Documented By: Infusion: 08/09/24 00:32 Dose: Infused Documented By: Admin: 08/08/24 19:32 Dose: 200 mls/hr Documented By: NAVEED Calcium Gluconate 4.65 meq/ (Sodium Chloride) 60 mls @ 180 mls/hr IV NOW ONE Stop: 08/08/24 23:35 Last Infusion: 08/08/24 23:46 Dose: Infused Documented By: Admin: 08/08/24 23:22 Dose: 180 mls/hr Documented By: NAVEED Lactated Ringer's (Lactated Ringers) 1,000 mls @ 1,000 mls/hr IV BOLUS ONE Stop: 08/09/24 05:46 Last Infusion: 08/09/24 07:00 Dose: Infused Documented By: Admin: 08/09/24 05:45 Dose: 1,000 mls/hr Documented By: NAVEED Ceftriaxone Sodium 1,000 mg/ (Sodium Chloride) 100 mls @ 200 mls/hr IV NOW ONE Stop: 08/09/24 20:01 Last Infusion: 08/09/24 21:07 Dose: Infused Documented By: Admin: 08/09/24 20:37 Dose: 200 mls/hr Documented By: NAVEED Lactated Ringer's (Lactated Ringers) 1,000 mls @ 200 mls/hr IV CONT SYLVESTER Last Infusion: 08/10/24 13:42 Dose: Infused Documented By: Infusion: 08/10/24 05:35 Dose: 0 mls/hr Documented By: Admin: 08/10/24 03:37 Dose: 200 mls/hr Documented By: Infusion: 08/09/24 12:12 Dose: Infused Documented By: Admin: 08/09/24 07:01 Dose: 200 mls/hr Documented By: NAVEED Dextrose/Lactated Ringer's (Dextrose 5%-Lactated Ringers) 1,000 mls @ 200 mls/hr IV CONT SYLVESTER Last Infusion: 08/10/24 09:55 Dose: 0 mls/hr Documented By: Admin: 08/10/24 05:34 Dose: 200 mls/hr Documented By: NAVEED Ceftriaxone Sodium 1,000 mg/ (Sodium Chloride) 100 mls @ 200 mls/hr IV NOW ONE Stop: 08/10/24 20:01 Lactated Ringer's (Lactated Ringers) 1,000 mls @ 125 mls/hr IV CONT [facility] Last Admin: 08/10/24 13:43 Dose: 125 mls/hr Documented By: ANSLEY Sodium Bicarbonate 150 meq/ (Dextrose) 1,150 mls @ 150 mls/hr IV CONT [facility] Last Admin: 08/10/24 14:10 Dose: 150 mls/hr Documented By: ANSLEY Ondansetron HCl (Ondansetron 4 Mg/2 Ml Inj) 4 mg IV NOW PRN PRN Reason: Nausea And Vomiting Ondansetron HCl (Ondansetron 4 Mg Odt) 4 mg SL NOW PRN PRN Reason: Nausea And Vomiting Prazosin HCl (Prazosin 1 Mg Capsule) 5 mg PO BEDTIME [facility] Last Admin: 08/09/24 21:01 Dose: Not Given Documented By: MOON Quetiapine Fumarate (Quetiapine 25 Mg Tablet) 100 mg PO BEDTIME [facility] Last Admin: 08/09/24 20:52 Dose: 100 mg Documented By: MOON Vital Signs Vital signs: Vital Signs - 8 hr 08/10/24 09:30 08/10/24 10:00 08/10/24 10:00 Temperature 98.2 F 98.2 F Pulse Rate 69 68 Respiratory Rate 10 L 10 L Blood Pressure 87/50 L Pulse Oximetry 96 97 08/10/24 10:27 08/10/24 10:27 08/10/24 10:30 Temperature 98.1 F 98.1 F Pulse Rate 67 68 Respiratory Rate 12 10 L Blood Pressure 94/50 L Pulse Oximetry 97 97 08/10/24 11:00 08/10/24 11:00 08/10/24 11:30 Temperature 97.9 F 97.9 F Pulse Rate 69 69 Respiratory Rate 10 L 12 Blood Pressure 95/53 L Pulse Oximetry 97 97 08/10/24 11:59 08/10/24 12:47 08/10/24 12:48 Temperature 97.7 F Pulse Rate 68 74 Respiratory Rate 13 18 Blood Pressure 111/54 L Pulse Oximetry 96 96 08/10/24 12:55 08/10/24 12:55 08/10/24 13:00 Temperature 94.1 F L Pulse Rate 74 Respiratory Rate 24 Blood Pressure 113/56 L 104/53 L Pulse Oximetry 99 08/10/24 13:00 08/10/24 13:30 08/10/24 14:00 Temperature 96.1 F L 97.3 F L 97.2 F L Pulse Rate 72 68 68 Respiratory Rate 15 15 14 Blood Pressure Pulse Oximetry 97 99 98 08/10/24 14:00 08/10/24 14:30 08/10/24 15:00 Temperature 97.3 F L 97.3 F L Pulse Rate 66 66 Respiratory Rate 12 11 L Blood Pressure 97/51 L Pulse Oximetry 98 97 08/10/24 15:00 08/10/24 15:30 08/10/24 16:00 Temperature 97.3 F L 97.3 F L Pulse Rate 69 68 Respiratory Rate 12 14 Blood Pressure 96/52 L Pulse Oximetry 96 96 08/10/24 16:00 Temperature Pulse Rate Respiratory Rate Blood Pressure 100/55 L Pulse Oximetry <Cora Jean, - Last Filed: 08/11/24 07:31> Orders Ordered: Discontinued Medications Allopurinol (Allopurinol 100 Mg Tablet) 300 mg PO DAILY [facility] Last Admin: 08/10/24 10:36 Dose: Not Given Documented By: Admin: 08/09/24 20:52 Dose: 300 mg Documented By: MOON Amitriptyline HCl (Amitriptyline 25 Mg Tablet) 25 mg PO DAILY [facility] Last Admin: 08/10/24 10:36 Dose: Not Given Documented By: Admin: 08/09/24 20:52 Dose: 25 mg Documented By: MOON Clonazepam (Clonazepam 0.5 Mg Tablet) 0.5 mg PO BID PRN PRN Reason: Anxiety Famotidine (Famotidine 20 Mg Tablet) 40 mg PO DAILY [facility] Last Admin: 08/10/24 10:36 Dose: Not Given Documented By: Admin: 08/09/24 20:53 Dose: 40 mg Documented By: MOON Famotidine (Famotidine 20 Mg/2 Ml Vial) 40 mg IV DAILY [facility] Sodium Chloride (Normal Saline 0.9%) 1,000 mls @ 1,000 mls/hr IV BOLUS ONE Stop: 08/08/24 19:05 Last Infusion: 08/08/24 18:41 Dose: Infused Documented By: Admin: 08/08/24 18:10 Dose: 1,000 mls/hr Documented By: MELISSA Sodium Chloride (Normal Saline 0.9%) 1,000 mls @ 1,000 mls/hr IV BOLUS ONE Stop: 08/08/24 19:40 Last Infusion: 08/08/24 19:45 Dose: Infused Documented By: Infusion: 08/08/24 19:20 Dose: 0 mls/hr Documented By: Admin: 08/08/24 18:43 Dose: 1,000 mls/hr Documented By: MELISSA Ceftriaxone Sodium 2,000 mg/ (Sodium Chloride) 100 mls @ 200 mls/hr IV NOW ONE Stop: 08/08/24 19:13 Last Infusion: 08/08/24 20:02 Dose: Infused Documented By: Admin: 08/08/24 19:32 Dose: 200 mls/hr Documented By: NAVEED Lactated Ringer's (Lactated Ringers) 1,000 mls @ 200 mls/hr IV CONT [facility] Last Infusion: 08/10/24 03:35 Dose: Infused Documented By: Admin: 08/09/24 22:35 Dose: 200 mls/hr Documented By: Infusion: 08/09/24 22:18 Dose: Infused Documented By: Admin: 08/09/24 17:18 Dose: 200 mls/hr Documented By: MELISSA(2) Infusion: 08/09/24 17:09 Dose: Infused Documented By: MELISSA(2) Admin: 08/09/24 12:09 Dose: 200 mls/hr Documented By: Infusion: 08/09/24 05:45 Dose: Infused Documented By: Admin: 08/09/24 00:33 Dose: 200 mls/hr Documented By: Infusion: 08/09/24 00:32 Dose: Infused Documented By: Admin: 08/08/24 19:32 Dose: 200 mls/hr Documented By: NAVEED Calcium Gluconate 4.65 meq/ (Sodium Chloride) 60 mls @ 180 mls/hr IV NOW ONE Stop: 08/08/24 23:35 Last Infusion: 08/08/24 23:46 Dose: Infused Documented By: Admin: 08/08/24 23:22 Dose: 180 mls/hr Documented By: NAVEED Lactated Ringer's (Lactated Ringers) 1,000 mls @ 1,000 mls/hr IV BOLUS ONE Stop: 08/09/24 05:46 Last Infusion: 08/09/24 07:00 Dose: Infused Documented By: Admin: 08/09/24 05:45 Dose: 1,000 mls/hr Documented By: NAVEED Ceftriaxone Sodium 1,000 mg/ (Sodium Chloride) 100 mls @ 200 mls/hr IV NOW ONE Stop: 08/09/24 20:01 Last Infusion: 08/09/24 21:07 Dose: Infused Documented By: Admin: 08/09/24 20:37 Dose: 200 mls/hr Documented By: NAVEED Lactated Ringer's (Lactated Ringers) 1,000 mls @ 200 mls/hr IV CONT SYLVESTER Last Infusion: 08/10/24 13:42 Dose: Infused Documented By: Infusion: 08/10/24 05:35 Dose: 0 mls/hr Documented By: Admin: 08/10/24 03:37 Dose: 200 mls/hr Documented By: Infusion: 08/09/24 12:12 Dose: Infused Documented By: Admin: 08/09/24 07:01 Dose: 200 mls/hr Documented By: NAVEED Dextrose/Lactated Ringer's (Dextrose 5%-Lactated Ringers) 1,000 mls @ 200 mls/hr IV CONT [facility] Last Infusion: 08/10/24 09:55 Dose: 0 mls/hr Documented By: Admin: 08/10/24 05:34 Dose: 200 mls/hr Documented By: NAVEED Ceftriaxone Sodium 1,000 mg/ (Sodium Chloride) 100 mls @ 200 mls/hr IV NOW ONE Stop: 08/10/24 20:01 Lactated Ringer's (Lactated Ringers) 1,000 mls @ 125 mls/hr IV CONT [facility] Last Admin: 08/10/24 13:43 Dose: 125 mls/hr Documented By: ANSLEY Sodium Bicarbonate 150 meq/ (Dextrose) 1,150 mls @ 150 mls/hr IV CONT [facility] Last Admin: 08/10/24 14:10 Dose: 150 mls/hr Documented By: ANSLEY Ondansetron HCl (Ondansetron 4 Mg/2 Ml Inj) 4 mg IV NOW PRN PRN Reason: Nausea And Vomiting Ondansetron HCl (Ondansetron 4 Mg Odt) 4 mg SL NOW PRN PRN Reason: Nausea And Vomiting Prazosin HCl (Prazosin 1 Mg Capsule) 5 mg PO BEDTIME [facility] Last Admin: 08/09/24 21:01 Dose: Not Given Documented By: MOON Quetiapine Fumarate (Quetiapine 25 Mg Tablet) 100 mg PO BEDTIME [facility] Last Admin: 08/09/24 20:52 Dose: 100 mg Documented By: MOON Vital Signs Vital signs: Vital Signs - 8 hr 08/10/24 09:30 08/10/24 10:00 08/10/24 10:00 Temperature 98.2 F 98.2 F Pulse Rate 69 68 Respiratory Rate 10 L 10 L Blood Pressure 87/50 L Pulse Oximetry 96 97 08/10/24 10:27 08/10/24 10:27 08/10/24 10:30 Temperature 98.1 F 98.1 F Pulse Rate 67 68 Respiratory Rate 12 10 L Blood Pressure 94/50 L Pulse Oximetry 97 97 08/10/24 11:00 08/10/24 11:00 08/10/24 11:30 Temperature 97.9 F 97.9 F Pulse Rate 69 69 Respiratory Rate 10 L 12 Blood Pressure 95/53 L Pulse Oximetry 97 97 08/10/24 11:59 08/10/24 12:47 08/10/24 12:48 Temperature 97.7 F Pulse Rate 68 74 Respiratory Rate 13 18 Blood Pressure 111/54 L Pulse Oximetry 96 96 08/10/24 12:55 08/10/24 12:55 08/10/24 13:00 Temperature 94.1 F L Pulse Rate 74 Respiratory Rate 24 Blood Pressure 113/56 L 104/53 L Pulse Oximetry 99 08/10/24 13:00 08/10/24 13:30 08/10/24 14:00 Temperature 96.1 F L 97.3 F L 97.2 F L Pulse Rate 72 68 68 Respiratory Rate 15 15 14 Blood Pressure Pulse Oximetry 97 99 98 08/10/24 14:00 08/10/24 14:30 08/10/24 15:00 Temperature 97.3 F L 97.3 F L Pulse Rate 66 66 Respiratory Rate 12 11 L Blood Pressure 97/51 L Pulse Oximetry 98 97 08/10/24 15:00 08/10/24 15:30 08/10/24 16:00 Temperature 97.3 F L 97.3 F L Pulse Rate 69 68 Respiratory Rate 12 14 Blood Pressure 96/52 L Pulse Oximetry 96 96 08/10/24 16:00 Temperature Pulse Rate Respiratory Rate Blood Pressure 100/55 L Pulse Oximetry MDM - Weakness <Wilson Godoy MD - Last Filed: 08/11/24 03:11> Lab Data Attestation: I reviewed the patient's lab results. Lab results narrative: White blood cell count 35326, hemoglobin 10.1, platelets 157507. Sodium 130 with glucose 109, potassium 5.1, serum CO2 12. BUN 86 with creatinine 5.74, markedly elevated. 08/10/24 10:53 08/10/24 05:02 Labs: Lab Results 08/08/24 08/08/24 08/08/24 Range/Units 18:05 19:00 22:22 WBC 12.8 H (4.5-11.0) X10^3/uL RBC 3.28 L (4.0-5.2) X10^6/uL Hgb 10.1 L (12.0-16.0) g/dL Hct 30.9 L (36-46) % MCV 94.3 (80-100) fL MCH 30.7 (26-34) PG MCHC 32.5 (30-36) % RDW 18.4 H (11.6-14.8) % Plt Count 145 L (150-400) X10^3/uL Neut % (Auto) 76.0 H (50-75) % Lymph % (Auto) 15.3 L (25-40) % [place] % (Auto) 6.6 (3-14) % Eos % (Auto) 1.0 L (2-4) % Baso % (Auto) 1.1 (0-2) % Neut # (Auto) 9800 H (5617-6306) /uL Lymph # (Auto) 2000 (1604-8858) /uL [place] # (Auto) 800 (0-900) /uL Eos # (Auto) 100 (0-450) /uL Baso # (Auto) 100 (0-100) /uL PT 10.9 (9.4-12.5) SECONDS INR 1.0 (0.9-1.3) APTT 40 H (25.1-36.5) SECONDS Sodium 130 L 132 L (137-145) mmol/L Potassium 5.1 4.6 (3.4-5.1) mmol/L Chloride 107 113 H (98-107) mmol/L Carbon Dioxide 12 L 12 L (22-32) mmol/L BUN 86 H 77 H (7-17) mg/dL Creatinine 5.74 H 4.91 H (0.52-1.04) mg/dL Estimated GFR 8 L 9 L (>60) mL/min BUN/Creatinine Ratio 15.0 15.7 (6-22) Glucose 109 88 (80-110) mg/dL Lactate 1.1 (0.7-2.1) mmol/L Calcium 8.8 7.7 L (8.4-10.2) mg/dL Total Bilirubin 0.6 (0.2-1.3) mg/dL AST 931 H (14-36) IU/L ALT 302 H (<35) IU/L Alkaline Phosphatase 806 H (38-126) U/L Ammonia (9-30) umol/L Total Protein 7.5 (6.3-8.2) g/dL Albumin 3.8 (3.5-5.0) g/dL Globulin 3.7 (1.7-4.1) g/dL Albumin/Globulin Ratio 1.0 (1.0-2.8) Lipase 142 (23-300) U/L Procalcitonin 1.07 H (<0.5) ng/mL Urine Color Brown Urine Appearance Cloudy Urine pH 7.5 (4.5-8.0) Ur Specific Royal 1.020 (1.000-1.035) Urine Protein 3+ H (Negative) Urine Glucose (UA) Negative (Negative) g/dL Urine Ketones Negative (NEGATIVE) Urine Occult Blood 3+ H (Negative) Urine Nitrate Negative (Negative) Urine Bilirubin 1+ H (NEGATIVE) Ur Bilirubin Confirm Negative (Negative) Urine Urobilinogen 0.2 (0.2) E.U./dL Ur Leukocyte Esterase 3+ H (NEGATIVE) Urine RBC 1-5/hpf (0-5/HPF) Urine WBC >100/hpf H (0-5/HPF) Ur Squamous Epith Cells 0-1 /hpf D (0-5/HPF) Urine Bacteria Many (>30) H (None) Ur Culture Indicated? Specimen cultured Vol Urine Centrifuged 10ml (spun) 08/09/24 08/09/24 08/09/24 Range/Units 05:06 10:47 19:51 WBC (4.5-11.0) X10^3/uL RBC (4.0-5.2) X10^6/uL Hgb (12.0-16.0) g/dL Hct (36-46) % MCV (80-100) fL MCH (26-34) PG MCHC (30-36) % RDW (11.6-14.8) % Plt Count (150-400) X10^3/uL Neut % (Auto) (50-75) % Lymph % (Auto) (25-40) % [place] % (Auto) (3-14) % Eos % (Auto) (2-4) % Baso % (Auto) (0-2) % Neut # (Auto) (1130-2795) /uL Lymph # (Auto) (9658-0446) /uL [place] # (Auto) (0-900) /uL Eos # (Auto) (0-450) /uL Baso # (Auto) (0-100) /uL PT (9.4-12.5) SECONDS INR (0.9-1.3) APTT (25.1-36.5) SECONDS Sodium 133 L 133 L 133 L (137-145) mmol/L Potassium 4.4 4.2 4.3 (3.4-5.1) mmol/L Chloride 113 H 113 H 113 H (98-107) mmol/L Carbon Dioxide 12 L 13 L 13 L (22-32) mmol/L BUN 78 H 73 H 73 H (7-17) mg/dL Creatinine 4.88 H 4.71 H 4.87 H (0.52-1.04) mg/dL Estimated GFR 10 L 10 L 10 L (>60) mL/min BUN/Creatinine Ratio 16.0 15.5 15.0 (6-22) Glucose 74 L 62 L 71 L (80-110) mg/dL Lactate (0.7-2.1) mmol/L Calcium 8.0 L 7.9 L 7.9 L (8.4-10.2) mg/dL Total Bilirubin (0.2-1.3) mg/dL AST (14-36) IU/L ALT (<35) IU/L Alkaline Phosphatase (38-126) U/L Ammonia (9-30) umol/L Total Protein (6.3-8.2) g/dL Albumin (3.5-5.0) g/dL Globulin (1.7-4.1) g/dL Albumin/Globulin Ratio (1.0-2.8) Lipase (23-300) U/L Procalcitonin (<0.5) ng/mL Urine Color Urine Appearance Urine pH (4.5-8.0) Ur Specific Royal (1.000-1.035) Urine Protein (Negative) Urine Glucose (UA) (Negative) g/dL Urine Ketones (NEGATIVE) Urine Occult Blood (Negative) Urine Nitrate (Negative) Urine Bilirubin (NEGATIVE) Ur Bilirubin Confirm (Negative) Urine Urobilinogen (0.2) E.U./dL Ur Leukocyte Esterase (NEGATIVE) Urine RBC (0-5/HPF) Urine WBC (0-5/HPF) Ur Squamous Epith Cells (0-5/HPF) Urine Bacteria (None) Ur Culture Indicated? Vol Urine Centrifuged 08/10/24 08/10/24 08/10/24 Range/Units 05:02 10:53 14:11 WBC 7.4 (4.5-11.0) X10^3/uL RBC 2.67 L (4.0-5.2) X10^6/uL Hgb 8.4 L (12.0-16.0) g/dL Hct 25.4 L (36-46) % MCV 95.0 (80-100) fL MCH 31.5 (26-34) PG MCHC 33.2 (30-36) % RDW 18.3 H (11.6-14.8) % Plt Count 90 L (150-400) X10^3/uL Neut % (Auto) 68.5 (50-75) % Lymph % (Auto) 18.9 L (25-40) % [place] % (Auto) 8.3 (3-14) % Eos % (Auto) 2.6 (2-4) % Baso % (Auto) 1.7 (0-2) % Neut # (Auto) 5000 (2071-3855) /uL Lymph # (Auto) 1400 (5906-4918) /uL [place] # (Auto) 600 (0-900) /uL Eos # (Auto) 200 (0-450) /uL Baso # (Auto) 100 (0-100) /uL PT (9.4-12.5) SECONDS INR (0.9-1.3) APTT (25.1-36.5) SECONDS Sodium 133 L (137-145) mmol/L Potassium 4.1 (3.4-5.1) mmol/L Chloride 114 H (98-107) mmol/L Carbon Dioxide 13 L (22-32) mmol/L BUN 71 H (7-17) mg/dL Creatinine 4.86 H (0.52-1.04) mg/dL Estimated GFR 10 L (>60) mL/min BUN/Creatinine Ratio 14.6 (6-22) Glucose 53 L (80-110) mg/dL Lactate 0.6 L (0.7-2.1) mmol/L Calcium 7.7 L (8.4-10.2) mg/dL Total Bilirubin (0.2-1.3) mg/dL AST (14-36) IU/L ALT (<35) IU/L Alkaline Phosphatase (38-126) U/L Ammonia < 9 L (9-30) umol/L Total Protein (6.3-8.2) g/dL Albumin (3.5-5.0) g/dL Globulin (1.7-4.1) g/dL Albumin/Globulin Ratio (1.0-2.8) Lipase (23-300) U/L Procalcitonin 0.658 H (<0.5) ng/mL Urine Color Urine Appearance Urine pH (4.5-8.0) Ur Specific Royal (1.000-1.035) Urine Protein (Negative) Urine Glucose (UA) (Negative) g/dL Urine Ketones (NEGATIVE) Urine Occult Blood (Negative) Urine Nitrate (Negative) Urine Bilirubin (NEGATIVE) Ur Bilirubin Confirm (Negative) Urine Urobilinogen (0.2) E.U./dL Ur Leukocyte Esterase (NEGATIVE) Urine RBC (0-5/HPF) Urine WBC (0-5/HPF) Ur Squamous Epith Cells (0-5/HPF) Urine Bacteria (None) Ur Culture Indicated? Vol Urine Centrifuged Point of Care Testing Glucose POC 120 Imaging Data Chest x-ray: Radiologist Impression: Close Chest X-Ray (Signed) CallChinedu - 08/08/24 Launch?[address] [address] XRay Report Signed Patient: Cheryl GuzmanaguilarhoneyKeila MR#: [id number] : 1965 Acct:[id number] Age/Sex: 59 / F Date of Service: 08/08/24 Loc: ED Accession Number: [id number] Procedure: XR chest 1V Ordering Provider: Wilson Godoy MD PROCEDURE: XR CHEST 1V INDICATIONS: suspected sepsis TECHNIQUE: One view of the chest was acquired. COMPARISON: [facility], CR, XR CHEST 1V, 11/11/2023, 14:32. [facility], CR, XR CHEST 1V, 06/14/2021, 16:52. FINDINGS: Surgical changes and devices: Clips in the right upper quadrant. Lungs and pleura: Lungs are clear. No pleural effusions or pneumothorax. Mediastinum: Mediastinal contours appear normal. Heart size is normal. Bones and chest wall: No suspicious bony lesions. Scoliosis. Overlying soft tissues appear unremarkable. IMPRESSION: No acute cardiopulmonary abnormality is seen. Dictated by: Chinedu Jain M.D. on 08/08/2024 at 19:42 Approved by: Chinedu Jain M.D. on 08/08/2024 at 19:43 CT scan - abdomen/pelvis: Radiologist Impression: [place] [address] CT Scan Report Signed Patient: Keila Godfrey MR#: [id number] : 1965 Acct:[id number] Age/Sex: 59 / F Date of Service: 08/08/24 Loc: ED Accession Number: [id number] Procedure: CT abdomen pelvis wo con Ordering Provider: Wilson Godoy MD PROCEDURE: CT ABDOMEN PELVIS WO CON INDICATIONS: inc creat, eval renals/bladder TECHNIQUE: Axial sections were acquired from the lung bases to the pubic symphysis. Coronal and sagittal reformats were performed. For radiation dose reduction, the following was used: automated exposure control, adjustment of mA and/or kV according to patient size. COMPARISON: None. FINDINGS: Image quality: Diagnostic. Lower Chest: Bibasilar atelectasis URINARY: Right Kidney: A trophic. No stones or hydronephrosis. Right Ureter: No hydroureter. Left Kidney: Atrophic. No stones or hydronephrosis. Left Ureter: No hydroureter. Bladder: Bladder decompressed around Clay catheter in situ. No significant perivesicular inflammation. No stones. ABDOMEN: Liver: No contour-deforming solid mass. Nodular liver contour suggestive of cirrhosis. Gallbladder: Surgically absent Biliary ducts: No biliary dilation. Pancreas: No ductal dilation. Spleen: Size is within normal limits. Adrenal Glands: No adrenal nodules. Stomach and Bowel: Normal colonic caliber, without significant wall thickening. Normal appendix Peritoneum: No abnormal intraperitoneal fluid. No free air. Ventral Wall: Tiny periumbilical fat containing hernia. Soft tissue nodularity in the anterior abdominal wall, probable injection granulomas. Abdominal Nodes: No enlarged retroperitoneal or mesenteric lymph nodes. Vessels: Aorta and inferior vena cava are normal in size. PELVIS: Pelvic Organs: Unremarkable. Pelvic Nodes: Unremarkable. Miscellaneous: No inguinal hernias are seen. Bones: Degenerative changes without acute vertebral body compression fracture. IMPRESSION: No obstructing stones or hydronephrosis. Nodular liver contour suggestive of cirrhosis. Approved by: Enriqueta Ch M.D.,Ph.D. on 08/08/2024 at 22:12 CT scan - head: Radiologist Impression: [place] [address] CT Scan Report Signed Patient: Keila Godfrey MR#: [id number] : 1965 Acct:[id number] Age/Sex: 59 / F Date of Service: 08/08/24 Loc: ED Accession Number: [id number] Procedure: CT head/brain wo con Ordering Provider: Wilson Godoy MD PROCEDURE: CT HEAD/BRAIN WO CON INDICATIONS: alt MSE< prior stroke 07/2024 TECHNIQUE: Noncontrast 4.5 mm thick angled axial sections acquired from the foramen magnum to the vertex, with coronal and sagittal reformats. For radiation dose reduction, the following was used: automated exposure control, adjustment of mA and/or kV according to patient size. COMPARISON: [facility], MR, MR STROKE PROTOCOL, 06/20/2024, 7:52. [facility], CT, CT HEAD WITHOUT CONTRAST, 06/19/2024, 17:59. [facility], CT, HEAD WITHOUT CONTRAST, 07/05/2017, 14:48. FINDINGS: Image quality: Diagnostic. CSF spaces: Basal cisterns are patent. No extra-axial fluid collections. Ventricles are normal in size and shape. Brain: No midline shift. No intracranial masses or hemorrhage. No area of hypodensity in a large vascular distribution to suggest acute infarction. Periventricular hypodensity consistent with chronic microvascular ischemic change. Age-related parenchymal loss. Skull and face: Calvarium and visualized facial bones are intact, without suspicious lesions. Sinuses: Visualized sinuses and mastoids are clear. IMPRESSION: No acute intracranial pathology. Dictated by: Chinedu Jain M.D. on 08/08/2024 at 21:00 Approved by: Chinedu Jain M.D. on 08/08/2024 at 21:03 ECG Data Attestation: I personally reviewed and interpreted this ECG as follows: Interpretation: Normal sinus rhythm with rate of 62, no obvious ST segment elevation or depression, flat T-waves lead 3 upright T-waves other inferior contiguous leads. OR 184, QRS 92, QTC 470. MDM Narrative Medical decision making narrative: 59-year-old female with history of C diff colitis, prior stroke last month, home for 1 week from [facility], more lethargic at home per family, low blood pressure, not eating and drinking as much recently, possible dehydration, urinalysis shows UTI, blood culture sent, IV ceftriaxone initiated. BUN 86 with creatinine 5.74 noted (most recent comparison 05/2024 B/Cr = 37/2.8, 03/2024 B/Cr = 28/2.4) CT head no acute changes, see radiology report. CT abdomen and pelvis noncontrast study, shows cirrhosis changes, no mentioned ascites, no obstructive uropathy, no acute changes. See radiology report. Systolic blood pressure improved 107, IV fluids in progress, will repeat labs, attempt transfer back to [facility] where she was recently admitted for stroke, if they can accommodate her. 2310, case discussed with [facility] Nephrology on-call, who can consult if transferred, await call back from seasonal warehouse associate/hospitalist 2320, WEED C[employer]ING [employer]PER[employer] call to [facility] seasonal warehouse associate, patient placed on wait list. For now the patient/ would like to wait for bed at [facility], prefer not to search elsewhere at this time. 0600, wait listed for transfer to [facility], currently patient does not seem to be interested in looking for alternative facilities, recent admission to [facility] in the last couple of months for stroke issues and C diff colitis. IV fluids infusing, serial labs show some modest improvement in BUN and creatinine. Signed out to [facility] ED shift physician Dr. Sarabjit whipple: Received turned over. Review patient's history and physical. Patient has remained stable throughout the day. She was received IV fluids but has had relatively little urine output. Her next dose of antibiotics has been scheduled for this evening. Her appropriate home medications have been ordered. We will hold on her blood pressure medicines she has had some low blood pressures here in the ER. Repeat labs do show an improvement in her creatinine. Her potassium has remained unremarkable. She was no signs of fluid overload. I did discuss the case with Dr. Vega nephrology at [facility] who states the patient was not need emergent dialysis but would see the patient upon transfer. I then discussed the case with Dr. Medina hospitalist on-call at [facility] who accepts the patient. Care turned over to Dr. Godoy at change of shift to continue to observe patient until disposition can be met. , 1800, Walt. Patient signed back out from Dr. Whipple. Interval history patient has been continuing to receive IV fluids, repeat labs show some incremental improvement in renal function. Potassium levels unremarkable. Does not seem to be exhibiting signs and symptoms of fluid overload at this time. Has not required pressors, urinary tract infection noted, IV ceftriaxone given last night, repeat dose this evening scheduled. Patient has subsequently been amenable to alternate facilities for transfer besides [facility] where she was wait listed. Patient has been accepted by Dr. Medina hospitalist at [facility]. Awaiting bed availability. Assumed interim care. Patient seems to have persistently elevated BUN and creatinine, might be plateauing in her improvement with IV fluids. Urine culture shows >100,000 colonies Gram-negative jaleesa, ID and sensitivity pending, patient has been receiving IV ceftriaxone, possible transition to oral agent once sensitivities known. 0700, still wait listed for transfer [facility], await bed availability, signed out to [facility] ED shift physician Dr. Jean 08/10/2024 Dr. Jean: Patient signed out to myself. Patient noted to be hypotensive overnight but had improvement has had quite a bit of fluids throughout her stay. Did note that she had her prazosin last night which maybe compounding this she does have a culture positive for E coli greater than 100,000 pansensitive. Patient has been receiving Rocephin. Patient does meet septic criteria she has had a white count of 12 she has been on her temperature overnight. Chemistries show persistent acute on chronic kidney injury creatinine was 5.74 on the 3rd has been stable at 4.8 on repeated checks over the last 2 days patient's CO2 is 13 with a BUN of 71 sodium is 133 potassium of 4 1 patient's glucose was low at 53 she did receive some dextrose she was has a little bit of apple juice but has had minimal solid intake. Patient had CT abdomen pelvis on 08/08/2024 showed no obstructing stones or hydro nodular liver contour suggesting cirrhosis. Chest x-ray at that time was negative as long as head CT was also negative. Awaiting bed assignment for transfer patient has been accepted at [facility] at this time, awaiting bed assignment. 1044: Spoke with Dr. Candelaria about consulting hospitalist since boarding patient here for 40+ hours.? Agrees with Amisha agrees with plan to transfer for Nephrology discussing MRI if patient can tolerate we discussed some assistance with management of the patient. He asked that we call to see where patient is in the Q for assignment and to call back with those results.? Spoke with patient's . He states she does normally have lateralizing deficits but is normally quite conversant and funny she can get around with some assistance typically. He states for the last several days her mentation and symptoms has been very similar very lethargic stopped eating and drinking at home as well as taking her medications. Did not appreciate any fevers, chest pain shortness of breath or other GI changes associated with this. Patient's urine output she was had out about a L throughout her stay which equates to about 20 mL/hour with urine output. Patient is not taking any oral input currently so we will continue with fluids she had a short break. Labs including CBC lactate and procalcitonin were obtained these all appear improved from priors with no elevation of lactate or increasing procalcitonin. Ammonia is less than 9. Chest x-ray was also obtained to evaluate for any pulmonary edema patient has a mildly prominent interstitium greater right rate low lung volumes could represent early edema versus artifact low lung volumes no pleural effusions. Patient has not had any increasing hypoxia or tachypnea. Discussed with has been he is agreeable to obtain MR and states she was had them in the past. MR brain shows possible subacute infarct, based on patient's has been description of symptoms has been at least several days since onset of symptoms. Also discussed with the patient's code status she is full code but states that would not want prolonged attempts at resuscitation. We did recontact [facility]/[place] currently boarding 50. Also reached out to other facilities including [facility] who does not have any beds currently but anticipate some discharges willing to review patient's chart. [address] Candelaria hospitalist at [place], if patient is still not possibly transferring before 4:00 p.m. today we will be happy to come consult on patient while boarding in the department. Recontacted Dr. Candelaria, ? bed today. 1335: Possible bed at [facility]: nephrology paged. 1346 Spoke with nephrology at [facility], Dr. Umanzor. They are happy to see the patient reviewed patient's findings no so we could give bicarbonate patient has not really been taking anything by mouth so we will give 3 amps of 150 mEq in 1 L D5 water. Updated patients family regarding labs, MR and recommendations from Nephrology. [address] [facility] accepts for transfer. Does ask if we have MR which can not obtain at this time reviewed patient's MR results did discuss could get carotid ultrasounds but states we will hold off this time. Patient is greater than 4-5 days if symptoms. <Cliff Whipple, - Last Filed: 08/14/24 18:03> Lab Data Labs: Lab Results 08/08/24 08/08/24 08/08/24 Range/Units 18:05 19:00 22:22 WBC 12.8 H (4.5-11.0) X10^3/uL RBC 3.28 L (4.0-5.2) X10^6/uL Hgb 10.1 L (12.0-16.0) g/dL Hct 30.9 L (36-46) % MCV 94.3 (80-100) fL MCH 30.7 (26-34) PG MCHC 32.5 (30-36) % RDW 18.4 H (11.6-14.8) % Plt Count 145 L (150-400) X10^3/uL Neut % (Auto) 76.0 H (50-75) % Lymph % (Auto) 15.3 L (25-40) % [place] % (Auto) 6.6 (3-14) % Eos % (Auto) 1.0 L (2-4) % Baso % (Auto) 1.1 (0-2) % Neut # (Auto) 9800 H (0980-8005) /uL Lymph # (Auto) 2000 (5264-1326) /uL [place] # (Auto) 800 (0-900) /uL Eos # (Auto) 100 (0-450) /uL Baso # (Auto) 100 (0-100) /uL PT 10.9 (9.4-12.5) SECONDS INR 1.0 (0.9-1.3) APTT 40 H (25.1-36.5) SECONDS Sodium 130 L 132 L (137-145) mmol/L Potassium 5.1 4.6 (3.4-5.1) mmol/L Chloride 107 113 H (98-107) mmol/L Carbon Dioxide 12 L 12 L (22-32) mmol/L BUN 86 H 77 H (7-17) mg/dL Creatinine 5.74 H 4.91 H (0.52-1.04) mg/dL Estimated GFR 8 L 9 L (>60) mL/min BUN/Creatinine Ratio 15.0 15.7 (6-22) Glucose 109 88 (80-110) mg/dL Lactate 1.1 (0.7-2.1) mmol/L Calcium 8.8 7.7 L (8.4-10.2) mg/dL Total Bilirubin 0.6 (0.2-1.3) mg/dL AST 931 H (14-36) IU/L ALT 302 H (<35) IU/L Alkaline Phosphatase 806 H (38-126) U/L Ammonia (9-30) umol/L Total Protein 7.5 (6.3-8.2) g/dL Albumin 3.8 (3.5-5.0) g/dL Globulin 3.7 (1.7-4.1) g/dL Albumin/Globulin Ratio 1.0 (1.0-2.8) Lipase 142 (23-300) U/L Procalcitonin 1.07 H (<0.5) ng/mL Urine Color Brown Urine Appearance Cloudy Urine pH 7.5 (4.5-8.0) Ur Specific Royal 1.020 (1.000-1.035) Urine Protein 3+ H (Negative) Urine Glucose (UA) Negative (Negative) g/dL Urine Ketones Negative (NEGATIVE) Urine Occult Blood 3+ H (Negative) Urine Nitrate Negative (Negative) Urine Bilirubin 1+ H (NEGATIVE) Ur Bilirubin Confirm Negative (Negative) Urine Urobilinogen 0.2 (0.2) E.U./dL Ur Leukocyte Esterase 3+ H (NEGATIVE) Urine RBC 1-5/hpf (0-5/HPF) Urine WBC >100/hpf H (0-5/HPF) Ur Squamous Epith Cells 0-1 /hpf D (0-5/HPF) Urine Bacteria Many (>30) H (None) Ur Culture Indicated? Specimen cultured Vol Urine Centrifuged 10ml (spun) 08/09/24 08/09/24 08/09/24 Range/Units 05:06 10:47 19:51 WBC (4.5-11.0) X10^3/uL RBC (4.0-5.2) X10^6/uL Hgb (12.0-16.0) g/dL Hct (36-46) % MCV (80-100) fL MCH (26-34) PG MCHC (30-36) % RDW (11.6-14.8) % Plt Count (150-400) X10^3/uL Neut % (Auto) (50-75) % Lymph % (Auto) (25-40) % [place] % (Auto) (3-14) % Eos % (Auto) (2-4) % Baso % (Auto) (0-2) % Neut # (Auto) (3630-0931) /uL Lymph # (Auto) (8808-1352) /uL [place] # (Auto) (0-900) /uL Eos # (Auto) (0-450) /uL Baso # (Auto) (0-100) /uL PT (9.4-12.5) SECONDS INR (0.9-1.3) APTT (25.1-36.5) SECONDS Sodium 133 L 133 L 133 L (137-145) mmol/L Potassium 4.4 4.2 4.3 (3.4-5.1) mmol/L Chloride 113 H 113 H 113 H (98-107) mmol/L Carbon Dioxide 12 L 13 L 13 L (22-32) mmol/L BUN 78 H 73 H 73 H (7-17) mg/dL Creatinine 4.88 H 4.71 H 4.87 H (0.52-1.04) mg/dL Estimated GFR 10 L 10 L 10 L (>60) mL/min BUN/Creatinine Ratio 16.0 15.5 15.0 (6-22) Glucose 74 L 62 L 71 L (80-110) mg/dL Lactate (0.7-2.1) mmol/L Calcium 8.0 L 7.9 L 7.9 L (8.4-10.2) mg/dL Total Bilirubin (0.2-1.3) mg/dL AST (14-36) IU/L ALT (<35) IU/L Alkaline Phosphatase (38-126) U/L Ammonia (9-30) umol/L Total Protein (6.3-8.2) g/dL Albumin (3.5-5.0) g/dL Globulin (1.7-4.1) g/dL Albumin/Globulin Ratio (1.0-2.8) Lipase (23-300) U/L Procalcitonin (<0.5) ng/mL Urine Color Urine Appearance Urine pH (4.5-8.0) Ur Specific Royal (1.000-1.035) Urine Protein (Negative) Urine Glucose (UA) (Negative) g/dL Urine Ketones (NEGATIVE) Urine Occult Blood (Negative) Urine Nitrate (Negative) Urine Bilirubin (NEGATIVE) Ur Bilirubin Confirm (Negative) Urine Urobilinogen (0.2) E.U./dL Ur Leukocyte Esterase (NEGATIVE) Urine RBC (0-5/HPF) Urine WBC (0-5/HPF) Ur Squamous Epith Cells (0-5/HPF) Urine Bacteria (None) Ur Culture Indicated? Vol Urine Centrifuged 08/10/24 08/10/24 08/10/24 Range/Units 05:02 10:53 14:11 WBC 7.4 (4.5-11.0) X10^3/uL RBC 2.67 L (4.0-5.2) X10^6/uL Hgb 8.4 L (12.0-16.0) g/dL Hct 25.4 L (36-46) % MCV 95.0 (80-100) fL MCH 31.5 (26-34) PG MCHC 33.2 (30-36) % RDW 18.3 H (11.6-14.8) % Plt Count 90 L (150-400) X10^3/uL Neut % (Auto) 68.5 (50-75) % Lymph % (Auto) 18.9 L (25-40) % [place] % (Auto) 8.3 (3-14) % Eos % (Auto) 2.6 (2-4) % Baso % (Auto) 1.7 (0-2) % Neut # (Auto) 5000 (7944-1526) /uL Lymph # (Auto) 1400 (2087-6370) /uL Cla[place]on # (Auto) 600 (0-900) /uL Eos # (Auto) 200 (0-450) /uL Baso # (Auto) 100 (0-100) /uL PT (9.4-12.5) SECONDS INR (0.9-1.3) APTT (25.1-36.5) SECONDS Sodium 133 L (137-145) mmol/L Potassium 4.1 (3.4-5.1) mmol/L Chloride 114 H (98-107) mmol/L Carbon Dioxide 13 L (22-32) mmol/L BUN 71 H (7-17) mg/dL Creatinine 4.86 H (0.52-1.04) mg/dL Estimated GFR 10 L (>60) mL/min BUN/Creatinine Ratio 14.6 (6-22) Glucose 53 L (80-110) mg/dL Lactate 0.6 L (0.7-2.1) mmol/L Calcium 7.7 L (8.4-10.2) mg/dL Total Bilirubin (0.2-1.3) mg/dL AST (14-36) IU/L ALT (<35) IU/L Alkaline Phosphatase (38-126) U/L Ammonia < 9 L (9-30) umol/L Total Protein (6.3-8.2) g/dL Albumin (3.5-5.0) g/dL Globulin (1.7-4.1) g/dL Albumin/Globulin Ratio (1.0-2.8) Lipase (23-300) U/L Procalcitonin 0.658 H (<0.5) ng/mL Urine Color Urine Appearance Urine pH (4.5-8.0) Ur Specific Royal (1.000-1.035) Urine Protein (Negative) Urine Glucose (UA) (Negative) g/dL Urine Ketones (NEGATIVE) Urine Occult Blood (Negative) Urine Nitrate (Negative) Urine Bilirubin (NEGATIVE) Ur Bilirubin Confirm (Negative) Urine Urobilinogen (0.2) E.U./dL Ur Leukocyte Esterase (NEGATIVE) Urine RBC (0-5/HPF) Urine WBC (0-5/HPF) Ur Squamous Epith Cells (0-5/HPF) Urine Bacteria (None) Ur Culture Indicated? Vol Urine Centrifuged Point of Care Testing Glucose POC 120 MDM Narrative Medical decision making narrative: 59-year-old female with history of C diff colitis, prior stroke last month, home for 1 week from [facility], more lethargic at home per family, low blood pressure, not eating and drinking as much recently, possible dehydration, urinalysis shows UTI, blood culture sent, IV ceftriaxone initiated. BUN 86 with creatinine 5.74 noted (most recent comparison 05/2024 B/Cr = 37/2.8, 03/2024 B/Cr = 28/2.4) CT head no acute changes, see radiology report. CT abdomen and pelvis noncontrast study, shows cirrhosis changes, no mentioned ascites, no obstructive uropathy, no acute changes. See radiology report. Systolic blood pressure improved 107, IV fluids in progress, will repeat labs, attempt transfer back to [facility] where she was recently admitted for stroke, if they can accommodate her. 2310, case discussed with [facility] Nephrology on-call, who can consult if transferred, await call back from seasonal warehouse associate/hospitalist 2320, WEED COOKING OPERATOR call to [facility] seasonal warehouse associate, patient placed on wait list. For now the patient/ would like to wait for bed at [facility], prefer not to search elsewhere at this time. 0600, wait listed for transfer to [facility], currently patient does not seem to be interested in looking for alternative facilities, recent admission to [facility] in the last couple of months for stroke issues and C diff colitis. IV fluids infusing, serial labs show some modest improvement in BUN and creatinine. Signed out to oncoming ED shift physician Dr. Sarabjit whipple: Received turned over. Review patient's history and physical. Patient has remained stable throughout the day. She was received IV fluids but has had relatively little urine output. Her next dose of antibiotics has been scheduled for this evening. Her appropriate home medications have been ordered. We will hold on her blood pressure medicines she has had some low blood pressures here in the ER. Repeat labs do show an improvement in her creatinine. Her potassium has remained unremarkable. She was no signs of fluid overload. I did discuss the case with Dr. Vega nephrology at [facility] who states the patient was not need emergent dialysis but would see the patient upon transfer. I then discussed the case with Dr. Medina hospitalist on-call at [facility] who accepts the patient. Care turned over to Dr. Godoy at change of shift to continue to observe patient until disposition can be met. <Cora Jean, DO - Last Filed: 08/11/24 07:31> Lab Data Labs: Lab Results 08/08/24 08/08/24 08/08/24 Range/Units 18:05 19:00 22:22 WBC 12.8 H (4.5-11.0) X10^3/uL RBC 3.28 L (4.0-5.2) X10^6/uL Hgb 10.1 L (12.0-16.0) g/dL Hct 30.9 L (36-46) % MCV 94.3 (80-100) fL MCH 30.7 (26-34) PG MCHC 32.5 (30-36) % RDW 18.4 H (11.6-14.8) % Plt Count 145 L (150-400) X10^3/uL Neut % (Auto) 76.0 H (50-75) % Lymph % (Auto) 15.3 L (25-40) % Clarendon % (Auto) 6.6 (3-14) % Eos % (Auto) 1.0 L (2-4) % Baso % (Auto) 1.1 (0-2) % Neut # (Auto) 9800 H (0666-4359) /uL Lymph # (Auto) 2000 (5654-4539) /uL Clarendon # (Auto) 800 (0-900) /uL Eos # (Auto) 100 (0-450) /uL Baso # (Auto) 100 (0-100) /uL PT 10.9 (9.4-12.5) SECONDS INR 1.0 (0.9-1.3) APTT 40 H (25.1-36.5) SECONDS Sodium 130 L 132 L (137-145) mmol/L Potassium 5.1 4.6 (3.4-5.1) mmol/L Chloride 107 113 H (98-107) mmol/L Carbon Dioxide 12 L 12 L (22-32) mmol/L BUN 86 H 77 H (7-17) mg/dL Creatinine 5.74 H 4.91 H (0.52-1.04) mg/dL Estimated GFR 8 L 9 L (>60) mL/min BUN/Creatinine Ratio 15.0 15.7 (6-22) Glucose 109 88 (80-110) mg/dL Lactate 1.1 (0.7-2.1) mmol/L Calcium 8.8 7.7 L (8.4-10.2) mg/dL Total Bilirubin 0.6 (0.2-1.3) mg/dL AST 931 H (14-36) IU/L ALT 302 H (<35) IU/L Alkaline Phosphatase 806 H (38-126) U/L Ammonia (9-30) umol/L Total Protein 7.5 (6.3-8.2) g/dL Albumin 3.8 (3.5-5.0) g/dL Globulin 3.7 (1.7-4.1) g/dL Albumin/Globulin Ratio 1.0 (1.0-2.8) Lipase 142 (23-300) U/L Procalcitonin 1.07 H (<0.5) ng/mL Urine Color Brown Urine Appearance Cloudy Urine pH 7.5 (4.5-8.0) Ur Specific Royal 1.020 (1.000-1.035) Urine Protein 3+ H (Negative) Urine Glucose (UA) Negative (Negative) g/dL Urine Ketones Negative (NEGATIVE) Urine Occult Blood 3+ H (Negative) Urine Nitrate Negative (Negative) Urine Bilirubin 1+ H (NEGATIVE) Ur Bilirubin Confirm Negative (Negative) Urine Urobilinogen 0.2 (0.2) E.U./dL Ur Leukocyte Esterase 3+ H (NEGATIVE) Urine RBC 1-5/hpf (0-5/HPF) Urine WBC >100/hpf H (0-5/HPF) Ur Squamous Epith Cells 0-1 /hpf D (0-5/HPF) Urine Bacteria Many (>30) H (None) Ur Culture Indicated? Specimen cultured Vol Urine Centrifuged 10ml (spun) 08/09/24 08/09/24 08/09/24 Range/Units 05:06 10:47 19:51 WBC (4.5-11.0) X10^3/uL RBC (4.0-5.2) X10^6/uL Hgb (12.0-16.0) g/dL Hct (36-46) % MCV (80-100) fL MCH (26-34) PG MCHC (30-36) % RDW (11.6-14.8) % Plt Count (150-400) X10^3/uL Neut % (Auto) (50-75) % Lymph % (Auto) (25-40) % Clarendon % (Auto) (3-14) % Eos % (Auto) (2-4) % Baso % (Auto) (0-2) % Neut # (Auto) (8531-9346) /uL Lymph # (Auto) (6264-8416) /uL Clarendon # (Auto) (0-900) /uL Eos # (Auto) (0-450) /uL Baso # (Auto) (0-100) /uL PT (9.4-12.5) SECONDS INR (0.9-1.3) APTT (25.1-36.5) SECONDS Sodium 133 L 133 L 133 L (137-145) mmol/L Potassium 4.4 4.2 4.3 (3.4-5.1) mmol/L Chloride 113 H 113 H 113 H (98-107) mmol/L Carbon Dioxide 12 L 13 L 13 L (22-32) mmol/L BUN 78 H 73 H 73 H (7-17) mg/dL Creatinine 4.88 H 4.71 H 4.87 H (0.52-1.04) mg/dL Estimated GFR 10 L 10 L 10 L (>60) mL/min BUN/Creatinine Ratio 16.0 15.5 15.0 (6-22) Glucose 74 L 62 L 71 L (80-110) mg/dL Lactate (0.7-2.1) mmol/L Calcium 8.0 L 7.9 L 7.9 L (8.4-10.2) mg/dL Total Bilirubin (0.2-1.3) mg/dL AST (14-36) IU/L ALT (<35) IU/L Alkaline Phosphatase (38-126) U/L Ammonia (9-30) umol/L Total Protein (6.3-8.2) g/dL Albumin (3.5-5.0) g/dL Globulin (1.7-4.1) g/dL Albumin/Globulin Ratio (1.0-2.8) Lipase (23-300) U/L Procalcitonin (<0.5) ng/mL Urine Color Urine Appearance Urine pH (4.5-8.0) Ur Specific Royal (1.000-1.035) Urine Protein (Negative) Urine Glucose (UA) (Negative) g/dL Urine Ketones (NEGATIVE) Urine Occult Blood (Negative) Urine Nitrate (Negative) Urine Bilirubin (NEGATIVE) Ur Bilirubin Confirm (Negative) Urine Urobilinogen (0.2) E.U./dL Ur Leukocyte Esterase (NEGATIVE) Urine RBC (0-5/HPF) Urine WBC (0-5/HPF) Ur Squamous Epith Cells (0-5/HPF) Urine Bacteria (None) Ur Culture Indicated? Vol Urine Centrifuged 08/10/24 08/10/24 08/10/24 Range/Units 05:02 10:53 14:11 WBC 7.4 (4.5-11.0) X10^3/uL RBC 2.67 L (4.0-5.2) X10^6/uL Hgb 8.4 L (12.0-16.0) g/dL Hct 25.4 L (36-46) % MCV 95.0 (80-100) fL MCH 31.5 (26-34) PG MCHC 33.2 (30-36) % RDW 18.3 H (11.6-14.8) % Plt Count 90 L (150-400) X10^3/uL Neut % (Auto) 68.5 (50-75) % Lymph % (Auto) 18.9 L (25-40) % Clarendon % (Auto) 8.3 (3-14) % Eos % (Auto) 2.6 (2-4) % Baso % (Auto) 1.7 (0-2) % Neut # (Auto) 5000 (2862-5758) /uL Lymph # (Auto) 1400 (2345-9906) /uL Clarendon # (Auto) 600 (0-900) /uL Eos # (Auto) 200 (0-450) /uL Baso # (Auto) 100 (0-100) /uL PT (9.4-12.5) SECONDS INR (0.9-1.3) APTT (25.1-36.5) SECONDS Sodium 133 L (137-145) mmol/L Potassium 4.1 (3.4-5.1) mmol/L Chloride 114 H (98-107) mmol/L Carbon Dioxide 13 L (22-32) mmol/L BUN 71 H (7-17) mg/dL Creatinine 4.86 H (0.52-1.04) mg/dL Estimated GFR 10 L (>60) mL/min BUN/Creatinine Ratio 14.6 (6-22) Glucose 53 L (80-110) mg/dL Lactate 0.6 L (0.7-2.1) mmol/L Calcium 7.7 L (8.4-10.2) mg/dL Total Bilirubin (0.2-1.3) mg/dL AST (14-36) IU/L ALT (<35) IU/L Alkaline Phosphatase (38-126) U/L Ammonia < 9 L (9-30) umol/L Total Protein (6.3-8.2) g/dL Albumin (3.5-5.0) g/dL Globulin (1.7-4.1) g/dL Albumin/Globulin Ratio (1.0-2.8) Lipase (23-300) U/L Procalcitonin 0.658 H (<0.5) ng/mL Urine Color Urine Appearance Urine pH (4.5-8.0) Ur Specific Royal (1.000-1.035) Urine Protein (Negative) Urine Glucose (UA) (Negative) g/dL Urine Ketones (NEGATIVE) Urine Occult Blood (Negative) Urine Nitrate (Negative) Urine Bilirubin (NEGATIVE) Ur Bilirubin Confirm (Negative) Urine Urobilinogen (0.2) E.U./dL Ur Leukocyte Esterase (NEGATIVE) Urine RBC (0-5/HPF) Urine WBC (0-5/HPF) Ur Squamous Epith Cells (0-5/HPF) Urine Bacteria (None) Ur Culture Indicated? Vol Urine Centrifuged Point of Care Testing Glucose POC 120 Imaging Data MR brain: Radiologist Impression: Keila Godfrey??59??F??1965 ? Allergy/Adv: luciano, venom-honey bee, gabapentin, lidocaine, duloxetine, nortriptyline, pregabalin, cyclobenzaprine, hydroxyzine, venlafaxine, trazodone, [fake sugar] (More??) Close Brain MRI (Signed) Nathan Barbosa - 08/10/24 Chest X-Ray (Signed) Nathan Barbosa - 08/10/[address] (Signed) Call,Chinedu - 08/08/24 Abdomen/Pelvis CT (Signed) Enriqueta Ch - 08/08/24 Chest X-Ray (Signed) Call,Chinedu - 08/08/24 Abdomen/Pelvis CT (Signed) Jordan Carty - 05/20/24 Chest X-Ray (Signed) Pb Jackson - 11/11/23 Renal Ultrasound (Signed) Jacky Cisneros - 10/24/22 Abdomen/Pelvis CT (Signed) Nathan Barbosa - 10/24/22 DEXA Result 08/18/22 Vascular Ultrasound (Signed) Christophe Umana - 08/18/22 Bone Densitometry 08/18/22 Mammogram Screening (Signed) Ward Hayden - 08/18/22 Chest X-Ray (Signed) Tobias Templeton - 06/14/21 Chest CTA (Signed) Alessandro Najera - 03/12/21 Chest X-Ray (Signed) Alessandro Najera - 03/12/21 Hip X-Ray (Signed) Lily Benz - 09/16/20 Mammogram Diagnostic (Signed) Jacky Cisneros - 05/24/20 Breast Ultrasound (Signed) Jacky Cisneros - 05/24/20 Chest X-Ray (Signed) Keven Boles - 03/19/20 Axilla US (Signed) Call,Chinedu - 08/28/19 Axilla US (Signed) Call,Chinedu - 08/28/19 Mammogram Diagnostic (Signed) Aleksander Mayfield - 08/08/19 Breast Ultrasound (Signed) Aleksander Mayfield - 08/08/19 Gastric Emptying Nuclear Medicine (Signed) Yvonne Nathan - 10/08/18 Abdomen/Pelvis CT (Signed) Blayne Rodriguez - 10/06/18 Lumbar Spine MRI (Signed) Shawn Romano - 06/17/18 Wrist X-Ray (Signed) Yvonne Nathan - 05/07/18 Hand X-Ray (Signed) Elena Nathaneugenio - 05/07/18 Launch?Image [address] [address] Magnetic Resonance Report Signed Patient: Keila Godfrey MR#: [id number] : 1965 Acct:[id number] Age/Sex: 59 / F Date of Service: 08/10/24 Loc: ED Accession Number: [id number] Procedure: MR head/brain wo con Ordering Provider: Cora Jean D.O. PROCEDURE: MR HEAD/BRAIN WO CON INDICATIONS: altered, hx cva TECHNIQUE: Noncontrast axial T1 spin echo, axial T2 fast spin echo, sagittal and axial FLAIR, coronal T2 fast spin echo, axial gradient echo, axial diffusion and ADC through the brain. COMPARISON: [facility], CT, CT HEAD/BRAIN WO CON, 08/08/2024, 19:53. [facility], MR, BRAIN WITHOUT CONTRAST, 03/30/2015, 13:57. FINDINGS: Image quality: Diagnostic CSF spaces: Basal cisterns are patent. Lateral ventricles are symmetric. Volume: Volume loss. Periventricular white matter signal abnormality most commonly seen with small vessel disease. These findings are mild Brain: No acute infarct. No acute hematoma. There is cortical FLAIR signal abnormality in the right parietal lobe (06/26). This is not artifact as is confirmed on multiple series. This was not present in 2014. Minimal signal is seen on gradient and diffusion images Craniofacial structures: Unremarkable where visualized IMPRESSION: No definite acute infarct. Right parietal small focal cortical edema, possibly a subacute infarct with microhemorrhage. Other types of parenchymal injury or even an underlying brain lesion is possible depending on patient history. Consider follow-up imaging to ensure resolution depending on clinical context. Dictated by: Nathan Barbosa M.D. on 08/10/2024 at 12:07 Approved by: Nathan Barbosa M.D. on 08/10/2024 at 12:11 [facility] Narrative Medical decision making narrative: 59-year-old female with history of C diff colitis, prior stroke last month, home for 1 week from [facility], more lethargic at home per family, low blood pressure, not eating and drinking as much recently, possible dehydration, urinalysis shows UTI, blood culture sent, IV ceftriaxone initiated. BUN 86 with creatinine 5.74 noted (most recent comparison 05/2024 B/Cr = 37/2.8, 03/2024 B/Cr = 28/2.4) CT head no acute changes, see radiology report. CT abdomen and pelvis noncontrast study, shows cirrhosis changes, no mentioned ascites, no obstructive uropathy, no acute changes. See radiology report. Systolic blood pressure improved 107, IV fluids in progress, will repeat labs, attempt transfer back to [facility] where she was recently admitted for stroke, if they can accommodate her. 2310, case discussed with [facility] Nephrology on-call, who can consult if transferred, await call back from seasonal warehouse associate/hospitalist 2320, WEED COOKING OPERATOR call to [facility] seasonal warehouse associate, patient placed on wait list. For now the patient/ would like to wait for bed at [facility], prefer not to search elsewhere at this time. 0600, wait listed for transfer to [facility], currently patient does not seem to be interested in looking for alternative facilities, recent admission to [facility] in the last couple of months for stroke issues and C diff colitis. IV fluids infusing, serial labs show some modest improvement in BUN and creatinine. Signed out to [facility] ED shift physician Dr. Sarabjit whipple: Received turned over. Review patient's history and physical. Patient has remained stable throughout the day. She was received IV fluids but has had relatively little urine output. Her next dose of antibiotics has been scheduled for this evening. Her appropriate home medications have been ordered. We will hold on her blood pressure medicines she has had some low blood pressures here in the ER. Repeat labs do show an improvement in her creatinine. Her potassium has remained unremarkable. She was no signs of fluid overload. I did discuss the case with Dr. Vega nephrology at [facility] who states the patient was not need emergent dialysis but would see the patient upon transfer. I then discussed the case with Dr. Medina hospitalist on-call at [facility] who accepts the patient. Care turned over to Dr. Godoy at change of shift to continue to observe patient until disposition can be met. , Walt Silva. Patient signed back out from Dr. Whipple. Interval history patient has been continuing to receive IV fluids, repeat labs show some incremental improvement in renal function. Potassium levels unremarkable. Does not seem to be exhibiting signs and symptoms of fluid overload at this time. Has not required pressors, urinary tract infection noted, IV ceftriaxone given last night, repeat dose this evening scheduled. Patient has subsequently been amenable to alternate facilities for transfer besides [facility] where she was wait listed. Patient has been accepted by Dr. Medina hospitalist at [facility]. Awaiting bed availability. Assumed interim care. Patient seems to have persistently elevated BUN and creatinine, might be plateauing in her improvement with IV fluids. Urine culture shows >100,000 colonies Gram-negative jaleesa, ID and sensitivity pending, patient has been receiving IV ceftriaxone, possible transition to oral agent once sensitivities known. 0700, still wait listed for transfer [facility], await bed availability, signed out to [facility] ED shift physician Dr. Jean 08/10/2024 Dr. Jean: Patient signed out to myself. Patient noted to be hypotensive overnight but had improvement has had quite a bit of fluids throughout her stay. Did note that she had her prazosin last night which maybe compounding this she does have a culture positive for E coli greater than 100,000 pansensitive. Patient has been receiving Rocephin. Patient does meet septic criteria she has had a white count of 12 she has been on her temperature overnight. Chemistries show persistent acute on chronic kidney injury creatinine was 5.74 on the 3rd has been stable at 4.8 on repeated checks over the last 2 days patient's CO2 is 13 with a BUN of 71 sodium is 133 potassium of 4 1 patient's glucose was low at 53 she did receive some dextrose she was has a little bit of apple juice but has had minimal solid intake. Patient had CT abdomen pelvis on 08/08/2024 showed no obstructing stones or hydro nodular liver contour suggesting cirrhosis. Chest x-ray at that time was negative as long as head CT was also negative. Awaiting bed assignment for transfer patient has been accepted at [facility] at this time, awaiting bed assignment. 1044: Spoke with Dr. Candelaria about consulting hospitalist since boarding patient here for 40+ hours.? Agrees with Amisha agrees with plan to transfer for Nephrology discussing MRI if patient can tolerate we discussed some assistance with management of the patient. He asked that we call to see where patient is in the Q for assignment and to call back with those results.? Spoke with patient's . He states she does normally have lateralizing deficits but is normally quite conversant and funny she can get around with some assistance typically. He states for the last several days her mentation and symptoms has been very similar very lethargic stopped eating and drinking at home as well as taking her medications. Did not appreciate any fevers, chest pain shortness of breath or other GI changes associated with this. Patient's urine output she was had out about a L throughout her stay which equates to about 20 mL/hour with urine output. Patient is not taking any oral input currently so we will continue with fluids she had a short break. Labs including CBC lactate and procalcitonin were obtained these all appear improved from priors with no elevation of lactate or increasing procalcitonin. Ammonia is less than 9. Chest x-ray was also obtained to evaluate for any pulmonary edema patient has a mildly prominent interstitium greater right rate low lung volumes could represent early edema versus artifact low lung volumes no pleural effusions. Patient has not had any increasing hypoxia or tachypnea. Discussed with has been he is agreeable to obtain MR and states she was had them in the past. MR brain shows possible subacute infarct, based on patient's has been description of symptoms has been at least several days since onset of symptoms. Also discussed with the patient's code status she is full code but states that would not want prolonged attempts at resuscitation. We did recontact [facility]/[place] currently boarding 50. Also reached out to other facilities including [facility] who does not have any beds currently but anticipate some discharges willing to review patient's chart. [address] Candelaria hospitalist at [facility], if patient is still not possibly transferring before 4:00 p.m. today we will be happy to come consult on patient while boarding in the department. Recontacted Dr. Candelaria, ? bed today. 1335: Possible bed at [facility]: nephrology paged. [phone] Spoke with nephrology at [facility], Dr. Umanzor. They are happy to see the patient reviewed patient's findings no so we could give bicarbonate patient has not really been taking anything by mouth so we will give 3 amps of 150 mEq in 1 L D5 water. Updated patients family regarding labs, MR and recommendations from Nephrology. [address] [facility] accepts for transfer. Does ask if we have MR a which can not obtain at this time reviewed patient's MR results did discuss could get carotid ultrasounds but states we will hold off this time. Patient is greater than 4-5 days if symptoms. Discharge Plan Departure Patient Disposition: [facility] Clinical Impression: Acute kidney injury, Urinary tract infection, Metabolic encephalopathy CVA (cerebral vascular accident) Qualifiers: Laterality of affected vessel: right Prescriptions: No Action prenat.vits,jeremy,apr-pruk-gwvgv tablet 1 tab PO DAILY quetiapine 50 mg tablet 100 mg PO BEDTIME Qty: 180 3RF insulin glargine [Lantus Solostar U-100 Insulin] 100 unit/mL (3 mL) insulin pen 30 unit SUBCUT HS Qty: 1 3RF insulin lispro [Humalog KwikPen Insulin] 100 unit/mL insulin pen 10 - 15 unit SUBCUT ACHS Qty: 1 3RF (DME) DISABLED PARKING PERMIT See Rx Instructions .ROUTE .MEDSUPPLY Qty: 1 0RF Rx Instructions: I FIND THIS PATIENT TO BE MEDICALLY DISABLED AND QUALIFIED FOR DISABLE PARKING INDICATED, AND SIGNED ON THE ACCOMPANYING [employer] APPLICATION FOR INDIVIDUALS rosuvastatin 40 mg tablet 40 mg PO DAILY Qty: 90 3RF estradiol 0.05 mg/24 hr patch semiweekly 1 patch topical 2XW Qty: 24 3RF dextroamphetamine-amphetamine 5 mg capsule,extended release 24hr 5 mg PO QAM Qty: 30 0RF Savella 12.5 mg tablet 12.5 mg PO BID Qty: 60 2RF prazosin 1 mg capsule 5 mg PO ONCE PM Qty: 150 0RF famotidine 40 mg tablet 40 mg PO DAILY triamcinolone acetonide 0.1 % cream 1 applic topical BID Qty: 80 1RF pantoprazole [Protonix] 40 mg tablet,delayed release (DR/EC) 80 mg PO QAM Qty: 180 3RF Rx Instructions: BEFORE BREAKFAST. albuterol sulfate 2.5 mg /3 mL (0.083 %) solution for nebulization 2.5 mg INHALATION Q6H PRN (Reason: shortness of breath or wheezing) Qty: 90 11RF nystatin-triamcinolone 100,000-0.1 unit/gram-% ointment See Rx Instructions TOP BID Qty: 30 0RF Dose Instruction: TOP BID; Apply to affected area BID 2-3 weeks Rx Instructions: apply small amount TOP BID; Apply to affected area BID 2-3 weeks aspirin 81 mg tablet,delayed release (DR/EC) 81 mg PO DAILY nitroglycerin 0.4 mg tablet, sublingual 0.4 mg sublingual Q5-15M PRN (Reason: Chest Pain) Rx Instructions: do not exceed 3 doses per episode epinephrine 0.3 mg/0.3 mL auto-injector 0.3 mg IM PRN PRN (Reason: Anaphylaxis) Qty: 1 11RF (DME) Dexcom G6 Sensor Device See Rx Instructions .ROUTE .MEDSUPPLY Qty: 3 Patient Comments: CHANGE EVERY 10 DAYS Rx Instructions: As directed; change every 10 days. ondansetron 4 mg tablet,disintegrating 4 mg Sublingual Q6HP PRN (Reason: nausea and vomiting) Qty: 120 2RF Rx Instructions: 1-2 tabs every 6 hours albuterol sulfate [Ventolin HFA] 90 mcg/actuation HFA aerosol inhaler 1 puff inhalation Q6H PRN (Reason: shortness of breath or wheezing) Qty: 18 6RF tramadol 50 mg tablet 50 mg PO Q6H PRN (Reason: pain) Qty: 40 1RF tizanidine 4 mg tablet 4 mg PO Q8H PRN (Reason: muscle spasticity) Qty: 120 3RF allopurinol 300 mg tablet 300 mg PO DAILY Qty: 90 3RF ondansetron 4 mg tablet,disintegrating 4 mg PO Q8H PRN (Reason: nausea and vomiting) Qty: 10 0RF spironolactone 25 mg Tablet 12.5 mg PO DAILY amitriptyline 25 mg Tablet 25 mg PO DAILY dicyclomine 20 mg Tablet 20 mg PO QID PRN (Reason: stomach cramping) amlodipine 10 mg Tablet 10 mg PO DAILY ferrous sulfate 325 mg (65 mg iron) Tablet 325 mg PO DAILY cyclosporine 0.05 % Dropperette 1 drp OPHTHALMIC (EYE) Rx Instructions: 1 drop both eyes BID Trintellix 20 mg Tablet 20 mg PO DAILY clonazepam 0.5 mg tablet 0.5 mg PO BID PRN (Reason: Anxiety) lisinopril 20 mg Tablet 20 mg PO DAILY clopidogrel 75 mg Tablet 75 mg PO DAILY metoclopramide HCl 5 mg Tablet 5 mg PO QAC Rx Instructions: administer 30 minutes before meals potassium chloride 20 mEq Tablet Extended Release 20 meq PO BID carvedilol 25 mg tablet 25 mg PO BID torsemide 20 mg Tablet 20 mg PO ONCE HS torsemide 40 mg Tablet 40 mg PO QAM Glucagon Emergency Kit (human) 1 mg Recon Soln 1 mg SUBCUT Q20M PRN (Reason: Hypoglycemia) Referrals: Jigar Bird MD [Primary Care Provider] -
[2024-08-08] MEDS: cefTRIAXone 2,000 MG in SODIUM CHLORIDE 0.9% 100 ML 200 MG IV (19:32)
[2024-08-08] MEDS: LACTATED RINGERS 1,000 ML 200 ML IV (19:32)
[2024-08-08 19:33] LABS: Appearance Urine UA CLOUDY; Bilirubin Urine UA 1+ (NEGATIVE); Color Urine UA BROWN; Glucose Urine UA NEGATIVE (Negative); Ketones Urine UA NEGATIVE (NEGATIVE); Nitrite Urine UA NEGATIVE (Negative); Occult Blood Urine UA 3+ (Negative); Protein Urine UA 3+ (Negative); Urobilinogen Urine UA 0.2 E.U./dL (0.2)
[2024-08-08 19:34] LABS: Leukocyte Esterase Urine UA 3+ (NEGATIVE); pH Urine UA 7.5 (4.5-8.0)
[2024-08-08 19:37] LABS: Bacteria Urine Many (>30); Culture Indicated Urine Specimen Cultured; Ictotest Urine Negative (Negative); RBC Urine 1-5/HPF (0-5/HPF); Squamous Epithelial Cell Urine 0-1 /HPF (0-5/HPF); Urine Volume 10mL (spun); WBC Urine >100/HPF (0-5/HPF)
--- NOTE | 2024-08-08 19:41 | PC.NURSE ---
1750 Physician notified of patient hypotensive, possibly sepsis, preliminary orders completed 1829 Physician notified ongoing hypotension, Additional NS bolus (2nd full Liter) infusing via pressure bag with NIBP cycling q5mins 190 Mcdermott placed, urine turbid, cloudy, mucus, brown with foul strong odor. Patient remains hypotensive 1914 MD notified patient status and urine obtained. Orders given for LR, antibiotics, NIBP remains cycling q5mins 1934 Patient temp mcdermott connected to temp probe Temp 94.6 MD and studio operations engineer in charge notified. MD will place orders.
--- NOTE | 2024-08-08 19:49 | DI.CT.S_ITS ---
PROCEDURE: CT ABDOMEN PELVIS WO CON INDICATIONS: inc creat, eval renals/bladder TECHNIQUE: Axial sections were acquired from the lung bases to the pubic symphysis. Coronal and sagittal reformats were performed. For radiation dose reduction, the following was used: automated exposure control, adjustment of mA and/or kV according to patient size. COMPARISON: None. FINDINGS: Image quality: Diagnostic. Lower Chest: Bibasilar atelectasis URINARY: Right Kidney: A trophic. No stones or hydronephrosis. Right Ureter: No hydroureter. Left Kidney: Atrophic. No stones or hydronephrosis. Left Ureter: No hydroureter. Bladder: Bladder decompressed around Clay catheter in situ. No significant perivesicular inflammation. No stones. ABDOMEN: Liver: No contour-deforming solid mass. Nodular liver contour suggestive of cirrhosis. Gallbladder: Surgically absent Biliary ducts: No biliary dilation. Pancreas: No ductal dilation. Spleen: Size is within normal limits. Adrenal Glands: No adrenal nodules. Stomach and Bowel: Normal colonic caliber, without significant wall thickening. Normal appendix Peritoneum: No abnormal intraperitoneal fluid. No free air. Ventral Wall: Tiny periumbilical fat containing hernia. Soft tissue nodularity in the anterior abdominal wall, probable injection granulomas. Abdominal Nodes: No enlarged retroperitoneal or mesenteric lymph nodes. Vessels: Aorta and inferior vena cava are normal in size. PELVIS: Pelvic Organs: Unremarkable. Pelvic Nodes: Unremarkable. Miscellaneous: No inguinal hernias are seen. Bones: Degenerative changes without acute vertebral body compression fracture. IMPRESSION: No obstructing stones or hydronephrosis. Nodular liver contour suggestive of cirrhosis. Approved by: Enriqueta Ch M.D.,Ph.D. on 08/08/2024 at 22:12
--- NOTE | 2024-08-08 19:50 | DI.CT.S_ITS ---
PROCEDURE: CT HEAD/BRAIN WO CON INDICATIONS: alt MSE< prior stroke 07/2024 TECHNIQUE: Noncontrast 4.5 mm thick angled axial sections acquired from the foramen magnum to the vertex, with coronal and sagittal reformats. For radiation dose reduction, the following was used: automated exposure control, adjustment of mA and/or kV according to patient size. COMPARISON: [facility], MR, MR STROKE PROTOCOL, 06/20/2024, 7:52. [facility], CT, CT HEAD WITHOUT CONTRAST, 06/19/2024, 17:59. [facility], CT, HEAD WITHOUT CONTRAST, 07/05/2017, 14:48. FINDINGS: Image quality: Diagnostic. CSF spaces: Basal cisterns are patent. No extra-axial fluid collections. Ventricles are normal in size and shape. Brain: No midline shift. No intracranial masses or hemorrhage. No area of hypodensity in a large vascular distribution to suggest acute infarction. Periventricular hypodensity consistent with chronic microvascular ischemic change. Age-related parenchymal loss. Skull and face: Calvarium and visualized facial bones are intact, without suspicious lesions. Sinuses: Visualized sinuses and mastoids are clear. IMPRESSION: No acute intracranial pathology. Dictated by: Chinedu Jain M.D. on 08/08/2024 at 21:00 Approved by: Chinedu Jain M.D. on 08/08/2024 at 21:03
--- NOTE | 2024-08-08 19:57 | PC.NURSE ---
Pt to imaging via ED stretcher with digital tech.
--- NOTE | 2024-08-08 21:45 | PC.NURSE ---
No change in patient condition. Pt resting quietly with eyes closed, resps even and not labored. No distress noted at this time. Pt remains connected to cardiac, resp, blood pressure, and pulse ox monitors with alarms on and audible. call light within reach. remains at bedside.
[2024-08-08 22:42] LABS: BUN Creatinine Ratio 15.7 (6-22); Blood Urea Nitrogen 77 mg/dL (7-17); Calcium 7.7 mg/dL (8.4-10.2); Carbon Dioxide 12 mmol/L (22-32); Chloride 113 mmol/L (98-107); Estimated Glomerular Filt Rate 9 mL/min (>60); Glucose 88 mg/dL (80-110); HEMOLYSIS < 15 (0-50); Potassium 4.6 mmol/L (3.4-5.1); Sodium 132 mmol/L (137-145)
--- NOTE | 2024-08-08 23:15 | PC.NURSE ---
No change in patient condition or status. Pt resting quietly with eyes closed, resps even and not labored. No distress noted at this time. Pt remains connected to cardiac, resp, blood pressure and cardiac monitors with alarms on and audible. call light within reach.
[2024-08-08] MEDS: CALCIUM GLUCONATE 4.65 MEQ in SODIUM CHLORIDE 0.9% 50 ML 180 MEQ IV (23:22)
[2024-08-09] VITALS (73 sets, daily range): BP systolic 78–105; BP diastolic 43–55; PULSE 60–69; RESP 9–66; TEMP 34.9–36.6; O2SAT 95–98
[2024-08-09] MEDS: LACTATED RINGERS 1,000 ML 200 ML IV ×5 (00:33→22:35)
--- NOTE | 2024-08-09 00:46 | PC.NURSE ---
No change in patient condition or status. Pt resting quietly with eyes closed, resps even and not labored. No distress noted at this time. Pt remians connected to cardiac, reps, blood pressure, and pulse ox monitors with alarms on and audible. call light within reach.
--- NOTE | 2024-08-09 01:54 | PC.NURSE ---
Dr. Godoy made aware of current UOP since 1900 and low temp. Pt placed on [facility] at this time.
--- NOTE | 2024-08-09 03:17 | PC.NURSE ---
No change in patient condition or status. Pt resting quietly with eyes closed, resps even and not labored. No distress noted at this time. Pt remains connected to cardiac, resp, blood pressure, and pulse ox monitors with alarms on and audible. Call light within reach. Indwelling urinary catheter with scant amount of clear yellow urine.
--- NOTE | 2024-08-09 04:24 | PC.NURSE ---
No change in patient condition or status. Pt resting quietly with eyes closed, resps even and not labored. No distress noted at this time. Cassi Hugger temp turned down at this time. Pt remains connected to cardiac, resp, blood pressure, pulse ox, and core temp monitors with alarms on and audible. Call light within reach. Indwelling urinary catheter continues to drain scant clear yellow urine.
--- NOTE | 2024-08-09 05:08 | PC.NURSE ---
Labs drawn from existing IV right AC
--- NOTE | 2024-08-09 05:09 | PC.NURSE ---
Cassi Carroll turned on d/t temp dropping.
[2024-08-09 05:31] LABS: Blood Urea Nitrogen 78 mg/dL (7-17); Carbon Dioxide 12 mmol/L (22-32); Chloride 113 mmol/L (98-107); Estimated Glomerular Filt Rate 10 mL/min (>60); Glucose 74 mg/dL (80-110); HEMOLYSIS 19 (0-50); Potassium 4.4 mmol/L (3.4-5.1); Sodium 133 mmol/L (137-145)
[2024-08-09] MEDS: LACTATED RINGERS 1,000 ML 1000 ML IV (05:45)
[2024-08-09 11:06] LABS: BUN Creatinine Ratio 15.5 (6-22); Blood Urea Nitrogen 73 mg/dL (7-17); Calcium 7.9 mg/dL (8.4-10.2); Carbon Dioxide 13 mmol/L (22-32); Chloride 113 mmol/L (98-107); Estimated Glomerular Filt Rate 10 mL/min (>60); Glucose 62 mg/dL (80-110); HEMOLYSIS < 15 (0-50); Potassium 4.2 mmol/L (3.4-5.1); Sodium 133 mmol/L (137-145)
--- NOTE | 2024-08-09 17:25 | PC.NURSE ---
Addendum entered by Amada Morales R.N. 08/09/24 18:40: 1700: Dr Whipple made aware of need of home med orders. Pt's med list has been reconciled appropriately. No new orders. Original Note: 1300: received report on pt from KRIS Riddle. Spouse at bedside. remains on bear hugger. resting in bed eyes closed. remains with soft BP. MAP >65. allowed to sleep. 1400: Spoke with spouse about reconciling med list. advised he will obtain list from [facility] for this RN. requesting we try to transfer to [facility] as pt has received her care there in the past. Dr Whipple agreeable and [facility] transfer center called. 1530: Son in room. Pt awake yet drowsy. speech is garbled. dentures are not in place. remains with soft bp 95/51. LR continues to infuse at 200ml/hr. historiography professor are weak bilaterally. pt intermittently follows simple commands. minimal output from MD kortney made aware. denies pain at this time. 1700: pt is pushing bear hugger off stating shes warm. bear hugger removed. covered with one blanket. temp 96.8 via temp mcdermott. HR 60's and appears regular.
--- NOTE | 2024-08-09 18:38 | PC.NURSE ---
Pt placed on inpatient bed. reports comfortable. bear dharaer placed back on patient for temp 95.7 via temp mcdermott.
--- NOTE | 2024-08-09 19:30 | PC.NURSE ---
Pt awake and alert sitting in hospital bed speaking with son. at bedside for short period of time dropping off luggage for patient. Pts bilat upper extremities from distally from elbows noted to be edematous. CSM intact with cap refill >2 sec, movement and sensation normal per patient. Dr. Godoy informed, new labs ordered and drawn. Pt remains connected to cardiac, resp, blood pressure, pulse ox, and core urine temp monitors with alarms on and audible. Call light within reach. Son remains at bedside.
[2024-08-09 20:08] LABS: Blood Urea Nitrogen 73 mg/dL (7-17); Calcium 7.9 mg/dL (8.4-10.2); Carbon Dioxide 13 mmol/L (22-32); Chloride 113 mmol/L (98-107); Estimated Glomerular Filt Rate 10 mL/min (>60); Glucose 71 mg/dL (80-110); HEMOLYSIS < 15 (0-50); Potassium 4.3 mmol/L (3.4-5.1); Sodium 133 mmol/L (137-145)
[2024-08-09] MEDS: cefTRIAXone 1,000 MG in SODIUM CHLORIDE 0.9% 100 ML 200 MG IV (20:37)
[2024-08-09] MEDS: AMITRIPTYLINE 25 MG TABLET PO (20:52)
[2024-08-09] MEDS: allopurinoL 100 MG TABLET 300 MG PO (20:52)
[2024-08-09] MEDS: QUETIAPINE 25 MG TABLET 100 MG PO (20:52)
[2024-08-09] MEDS: FAMOTIDINE 20 MG TABLET 40 MG PO (20:53)
--- NOTE | 2024-08-09 21:30 | PC.NURSE ---
No change in patient condition or status. Pt resting quielty with eyes closed, resps even and not labored. No distress noted at this time. Pt remains connected to cardiac, resp, blood pressure, pulse ox, and core urine temp sensing monitors with alarms on and audible. Call light within reach. Cassi Carroll in continued use. Son remains at bedside.
--- NOTE | 2024-08-09 21:39 | PC.NURSE ---
Cassi Carroll turned on at this time d/t low core temp.
--- NOTE | 2024-08-09 21:56 | PC.NURSE ---
Compression devices applied to bilat lower extremities.
--- NOTE | 2024-08-09 22:40 | PC.NURSE ---
[employer] note: Called [facility] regarding patient finding a bed. Spoke to Favian Carrera, and the nursing lead refinery supervisor. The nursing lead refinery supervisor said they have no beds tonight and there would be no movement. They said they hoped to have a bed tomorrow.
--- NOTE | 2024-08-09 23:28 | PC.NURSE ---
No change in patient consition or status. Pt resting quietly with eyes closed, resps even and not labored. No distress noted at this time. Pt remains connected to cardiac, resp, blood pressure, and core urine temp monitors with alarms on and audible. Call light within reach. Son is leaving at this time.
[2024-08-10] VITALS (41 sets, daily range): BP systolic 81–113; BP diastolic 46–56; PULSE 61–74; RESP 8–24; TEMP 34.5–36.9; O2SAT 96–99
--- NOTE | 2024-08-10 01:28 | PC.NURSE ---
Addendum entered by Jenny Bonilla R.N. 08/10/24 02:46: Bilat upper extremity edema remains unchanged. Clear lung sounds bilat. Original Note: No change in patient condition or status. Pt resting quietly with eyes closed, resps even and not labored. No distress noted at this time. Pt remains connected to cardiac, resp, blood pressure, pulse ox, and core urine temp sensors with alarms on and audible. Call light within reach. SCD remain in place to bilat lower extremities. Indwelling urinary catheter continues to drain clear yellow urine. Cassi Hugger continues to be in place and on.
--- NOTE | 2024-08-10 03:35 | PC.NURSE ---
No change in patient condition or status. Pt resting quietly with eyes closed, resps even and not labored. No distress noted at this time. Pt remains connected to cardiac, resp, blood pressure, pulse ox, and core urine temp sensors with alarms on and audible. Call light within reach. Indwelling urinary catheter continues to drain scant amount of clear yellow urine. Bilat upper extremity swelling remains unchanged. Bilat breath sounds clear.
[2024-08-10] MEDS: LACTATED RINGERS 1,000 ML 200 ML IV (03:37)
--- NOTE | 2024-08-10 05:04 | PC.NURSE ---
AM BMP drawn from existing IV line without difficulty.
[2024-08-10 05:18] LABS: BUN Creatinine Ratio 14.6 (6-22); Blood Urea Nitrogen 71 mg/dL (7-17); Calcium 7.7 mg/dL (8.4-10.2); Carbon Dioxide 13 mmol/L (22-32); Chloride 114 mmol/L (98-107); Estimated Glomerular Filt Rate 10 mL/min (>60); Glucose 53 mg/dL (80-110); HEMOLYSIS < 15 (0-50); Potassium 4.1 mmol/L (3.4-5.1); Sodium 133 mmol/L (137-145)
[2024-08-10] MEDS: DEXTROSE 5%-LACTATED RINGERS 1,000 ML 200 ML IV (05:34)
--- NOTE | 2024-08-10 05:41 | PC.NURSE ---
Dr. Godoy made aware of AM lab draw results and low blood glucose. Verbal order for change in continuous IV fluids taken. New IV fluids hung as ordered. No change in patient condition or status. Pt resting quietly with eyes closed, resps even and not labored. No distress noted at this time. Pt remains connected to cardiac, resp, blood pressure, pulse ox, and indwelling urinary temp sensor with alarms on and audible. Call light within reach. Bilat upper extremity edema remains unchanged. Indwelling urinary catheter continues to drain small amounts of clear, yellow urine. Cassi Hugger remains on and in place.
--- NOTE | 2024-08-10 09:48 | PC.NURSE ---
Called coordinator, Sofya for meds. Pharmacy in meeting.
--- NOTE | 2024-08-10 10:34 | DI.RAD.S_ITS ---
PROCEDURE: XR CHEST 1V INDICATIONS: fluid overload TECHNIQUE: One view of the chest was acquired. COMPARISON: [facility], CR, XR CHEST 1V, 08/08/2024, 18:14. [facility], CR, XR CHEST 1V, 11/11/2023, 14:32. FINDINGS: Surgical changes and devices: None. Lungs and pleura: Mild interstitial prominence greater on the right. No pleural effusions. Very low lung volumes. Mediastinum: Normal heart size, unchanged. Bones and chest wall: Unremarkable IMPRESSION: Mildly prominent interstitium greater on the right, very low lung volumes. This could represent early edema versus artifact of low lung volumes. No pleural effusions. Dictated by: Nathan Barbosa M.D. on 08/10/2024 at 10:08 Approved by: Nathan Barbosa M.D. on 08/10/2024 at 10:09
--- NOTE | 2024-08-10 10:45 | DI.MRI.S_ITS ---
PROCEDURE: MR HEAD/BRAIN WO CON INDICATIONS: altered, hx cva TECHNIQUE: Noncontrast axial T1 spin echo, axial T2 fast spin echo, sagittal and axial FLAIR, coronal T2 fast spin echo, axial gradient echo, axial diffusion and ADC through the brain. COMPARISON: [facility], CT, CT HEAD/BRAIN WO CON, 08/08/2024, 19:53. [facility], MR, BRAIN WITHOUT CONTRAST, 03/30/2015, 13:57. FINDINGS: Image quality: Diagnostic CSF spaces: Basal cisterns are patent. Lateral ventricles are symmetric. Volume: Volume loss. Periventricular white matter signal abnormality most commonly seen with small vessel disease. These findings are mild Brain: No acute infarct. No acute hematoma. There is cortical FLAIR signal abnormality in the right parietal lobe (06/26). This is not artifact as is confirmed on multiple series. This was not present in 2014. Minimal signal is seen on gradient and diffusion images Craniofacial structures: Unremarkable where visualized IMPRESSION: No definite acute infarct. Right parietal small focal cortical edema, possibly a subacute infarct with microhemorrhage. Other types of parenchymal injury or even an underlying brain lesion is possible depending on patient history. Consider follow-up imaging to ensure resolution depending on clinical context. Dictated by: Nathan Barbosa M.D. on 08/10/2024 at 12:07 Approved by: Nathan Barbosa M.D. on 08/10/2024 at 12:11
--- NOTE | 2024-08-10 10:46 | PC.NURSE ---
Pt unable to swallow liquids and apple sauce. Dr Jean notified of pt status.
--- NOTE | 2024-08-10 10:59 | PC.NURSE ---
Called [phone] @[phone] and spoke to [facility] fish supervisor and get update on bed status. [facility] says boarding 50 in ED and won't have bed until this afternoon. Called [facility] @ [phone] and spoke to fish house worker Estrellita. Updated physician note faxed @[phone].
[2024-08-10 11:02] LABS: Add Manual Diff / Slide Review NO; Basophils Absolute Auto 100 /uL (0-100); Basophils Percent Auto 1.7 % (0-2); Eosinophils Absolute Auto 200 /uL (0-450); Eosinophils Percent Auto 2.6 % (2-4); Hematocrit 25.4 % (36-46); Hemoglobin 8.4 g/dL (12.0-16.0); Lymphocytes Absolute Auto 1400 /uL (1100-4500); Lymphocytes Percent Auto 18.9 % (25-40); Mean Corpuscular HGB Conc 33.2 % (30-36); Mean Corpuscular Hemoglobin 31.5 PG (26-34); Monocytes Absolute Auto 600 /uL (0-900); Monocytes Percent Auto 8.3 % (3-14); Neutrophils Absolute Auto 5000 /uL (1500-7000); Neutrophils Percent Auto 68.5 % (50-75); Platelet Count 90 X10^3/uL (150-400); Red Blood Cell Count 2.67 X10^6/uL (4.0-5.2); Red Cell Distribution Width 18.3 % (11.6-14.8); White Blood Cell Count 7.4 X10^3/uL (4.5-11.0)
[2024-08-10 11:13] LABS: Lactate (Lactic Acid) 0.6 mmol/L (0.7-2.1)
[2024-08-10 11:30] LABS: Procalcitonin 0.658 ng/mL (<0.5)
[2024-08-10] MEDS: LACTATED RINGERS 1,000 ML 125 ML IV (13:43)
[2024-08-10] MEDS: SODIUM BICARB 8.4% VIAL 150 MEQ in DEXTROSE 5% WATER 1,000 ML IV (14:10)
[2024-08-10 14:28] LABS: Ammonia (NH3) < 9 umol/L (9-30)
--- NOTE | 2024-08-10 19:11 | PC.NURSE ---
Addendum entered by Malena Grayson R.N. 08/10/24 19:35: 1935 Report given to SWEETIE Cuellar RN Original Note: 1910 attempted to call report to [facility]. DAYANARA Cuellar, RN asked me to call back in 10 mins.
== END 2024-08-10 19:38 | disposition short-term general hospital (02) ==
PROVIDERS: Emergency Medicine; Emergency Provider Emergency Medicine; PCP Internal Medicine
DX: I63.9 Cerebral infarction, unspecified (principal); N17.9 Acute kidney failure, unspecified; N39.0 Urinary tract infection, site not specified; B96.20 Unspecified Escherichia coli [E. coli] as the cause of diseases classified elsewhere; I10 Essential (primary) hypertension; G93.41 Metabolic encephalopathy; Z87.891 Personal history of nicotine dependence; Z86.73 Personal history of transient ischemic attack (TIA), and cerebral infarction without residual deficits
CPT/HCPCS: 36415; 70450; 70551; 71045; 74176; 80048; 80053; 81001; 82140; 82962; 83605; 83690; 84145; 85025; 85610; 85730; 87040; 87077; 87086; 87186; 93005; 96361; 96365; 96366; 96367; 96375; 99285; A9270; J0612; J0696; J7121

== ENCOUNTER → 2024-12-27 11:43 | Outpatient (CLI) | payer OTHER, SELFPAY ==
[2023-09-03 08:36] VITALS: BMI 24.8
[2024-12-27 12:53] LABS: Hemoglobin 12.3 g/dL (12.0-16.0); Mean Corpuscular HGB Conc 33.3 % (30-36); Mean Corpuscular Hemoglobin 32.5 PG (26-34); Mean Corpuscular Volume 97.7 fL (80-100); Platelet Count 145 X10^3/uL (150-400); Red Blood Cell Count 3.79 X10^6/uL (4.0-5.2); White Blood Cell Count 6.3 X10^3/uL (4.5-11.0)
[2024-12-27 13:08] LABS: Alanine Aminotransferase 27 IU/L (<35); Albumin 4.2 g/dL (3.5-5.0); Albumin Globulin Ratio 1.2 (1.0-2.8); Alkaline Phosphatase 341 U/L (38-126); Aspartate Aminotransferase 42 IU/L (14-36); BUN Creatinine Ratio 16.8 (6-22); Bilirubin Total 0.6 mg/dL (0.2-1.3); Blood Urea Nitrogen 30 mg/dL (7-17); Calcium 9.5 mg/dL (8.4-10.2); Carbon Dioxide 16 mmol/L (22-32); Chloride 112 mmol/L (98-107); Cholesterol 236 mg/dL (140-199); Estimated Glomerular Filt Rate 32 mL/min (>60); Globulin 3.5 g/dL (1.7-4.1); Glucose 264 mg/dL (70-99); HDL Cholesterol 93 mg/dL (40-60); LDL Cholesterol Calculated 102 mg/dL (<100); Potassium 4.6 mmol/L (3.4-5.1); Sodium 140 mmol/L (137-145); Total Protein 7.7 g/dL (6.3-8.2); Triglycerides 204 mg/dL (35-150)
[2024-12-27 13:11] LABS: Hemoglobin A1C% w Est Avg Glu 6.5 % (4.0-6.0)
[2024-12-27 13:36] LABS: TSH w/ Reflex to FT4 0.17 uIU/mL (0.47-4.68)
[2024-12-27 15:12] LABS: HEMOLYSIS < 15 (0-50)
== END ==
PROVIDERS: PCP Internal Medicine; Referring Provider Internal Medicine; Visit Provider Internal Medicine
DX: I10 Essential (primary) hypertension (principal); E78.2 Mixed hyperlipidemia; E11.59 Type 2 diabetes mellitus with other circulatory complications
CPT/HCPCS: 36415; 80053; 80061; 83036; 84439; 84443; 85027

== ENCOUNTER 2025-01-09 16:31 | Emergency (ER) | payer OTHER, SELFPAY ==
[2023-09-03 08:36] VITALS: BMI 24.8
[2025-01-09] VITALS (22 sets, daily range): BP systolic 133–200; BP diastolic 59–94; PULSE 77–111; RESP 20–32; TEMP 36.7; O2SAT 94–100; BMI 25.5
--- NOTE | 2025-01-09 16:34 | EKG_ITS ---
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
--- NOTE | 2025-01-09 16:34 | DI.RAD.S_ITS ---
PROCEDURE: XR CHEST 1V INDICATIONS: Chest Pain TECHNIQUE: One view of the chest was acquired. COMPARISON: [facility], CR, XR CHEST 1V, 08/10/2024, 10:33. FINDINGS: Surgical changes and devices: Surgical clips are seen in gallbladder fossa. Lungs and pleura: Lungs are clear. No pleural effusions or pneumothorax. Mediastinum: Mediastinal contours appear normal. Heart size is normal. Bones and chest wall: S shaped scoliosis of thoracolumbar spine is seen unchanged from prior study. Overlying soft tissues appear unremarkable. IMPRESSION: No acute cardiopulmonary pathology. Dictated by: Keven Boles M.D. on 01/09/2025 at 17:01 Approved by: Keven Boles M.D. on 01/09/2025 at 17:02
--- NOTE | 2025-01-09 16:40 | PC.NURSE ---
unable to place PIV, unsuccsessful x 3 attempts, will need US guided iv
--- NOTE | 2025-01-09 17:01 | ED.CHESTPAIN ---
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 with left-sided chest pain pressure quality radiating up to left shoulder along with nausea and diaphoresis unrelieved with 2 Tylenol tablets. Patient rates the pain as 9/10 pressure type sensation along with shortness of breath and dyspnea on exertion but no leg swelling or leg pain. Other than what is stated 14 point review of system is negative. Related Data Home Medications ?Medication ?Instructions ?Recorded ?Confirmed prenat.vits,jeremy,[id number] 1 tab PO DAILY 01/18/18 12/31/24 glucagon (human recombinant) 1 mg 1 mg SUBCUT Q20M PRN Hypoglycemia 10/06/18 12/31/24 solution for injection (Glucagon Emergency Kit) aspirin 81 mg tablet,delayed 81 mg PO DAILY 03/21/21 12/31/24 release nitroglycerin 0.4 mg sublingual 0.4 mg sublingual Q5-15M PRN Chest 03/21/21 12/31/24 tablet Pain blood-glucose sensor (Flare Codecom G6 #3 ea 06/21/22 11/28/24 Sensor device) famotidine 40 mg tablet 40 mg PO DAILY 03/20/23 12/31/24 amlodipine 10 mg tablet 10 mg PO DAILY 08/09/24 12/31/24 clonazepam 0.5 mg tablet 0.5 mg PO BID PRN Anxiety 08/09/24 12/31/24 cyclosporine 0.05 % eye drops in a 1 drp ophthalmic (eye) 08/09/24 12/31/24 dropperette dicyclomine 20 mg tablet 20 mg PO QID PRN stomach cramping 08/09/24 12/31/24 potassium chloride 20 mEq 20 meq PO BID 08/09/24 12/31/24 tablet,extended release amitriptyline 25 mg tablet 25 mg PO BEDTIME 11/28/24 12/31/24 ferrous sulfate 325 mg (65 mg 325 mg PO Q OTHER DAY 11/28/24 12/31/24 iron) tablet torsemide 20 mg tablet 20 mg PO QAM 11/28/24 12/31/24 vortioxetine 20 mg tablet 20 mg PO .HS 11/28/24 12/31/24 (Trintellix) milnacipran 12.5 mg tablet 12.5 mg PO BID 12/03/24 12/31/24 (Savella) oxycodone 5 mg tablet 5 mg PO 3XD PRN 12/03/24 12/31/24 Previous Rx's ?Medication ?Instructions ?Recorded insulin glargine 100 unit/mL (3 30 unit (0.3 mL) SUBCUT HS #1 mL 05/31/18 mL) subcutaneous pen (Lantus Solostar U-100 Insulin) nystatin-triamcinolone 100,000 See Rx Instructions topical BID 09/24/18 unit/gram-0.1 % topical ointment #30 grams epinephrine 0.3 mg/0.3 mL 0.3 mg (0.3 mL) IM PRN PRN 03/21/21 injection, auto-injector Anaphylaxis #1 ea DISABLED PARKING PERMIT #1 ea 06/08/21 quetiapine 50 mg tablet 100 mg (2 x 50 mg) PO BEDTIME #180 08/16/23 tabs estradiol 0.05 mg/24 hr semiweekly 1 patch topical 2XW #24 patches 08/21/23 transdermal patch albuterol sulfate 2.5 mg/3 mL 2.5 mg (3 mL) inhalation Q6H PRN 09/20/23 (0.083 %) solution for nebulization shortness of breath or wheezing #90 mL albuterol sulfate 90 mcg/actuation 1 puff inhalation Q6H PRN 03/19/24 aerosol inhaler (Ventolin HFA) shortness of breath or wheezing #18 grams allopurinol 300 mg tablet 300 mg PO DAILY #90 tabs 03/19/24 tramadol 50 mg tablet 50 mg PO Q6H PRN pain #40 tabs 03/19/24 dextroamphetamine-amphetamine ER 5 5 mg PO QAM #30 caps 04/17/24 mg 24hr capsule,extend release prazosin 1 mg capsule 5 mg (5 x 1 mg) PO ONCE PM for 08/22/24 nightmares #150 caps pantoprazole 40 mg tablet,delayed 80 mg (2 x 40 mg) PO QAM #180 tabs 09/18/24 release (Protonix) insulin lispro 100 unit/mL 10 - 15 unit (0.1 - 0.15 mL) 11/28/24 subcutaneous pen (Humalog KwikPen SUBCUT USEASDIRECTD #1 mL (U-100) Insulin) ondansetron 4 mg disintegrating 4 mg sublingual Q6HP PRN nausea 12/19/24 tablet and vomiting #120 tabs tizanidine 4 mg tablet 4 mg PO Q8H PRN muscle spasticity 12/31/24 #120 tabs milnacipran 12.5 mg tablet 12.5 mg PO BID #60 tabs 01/05/25 (Savella) hydrocodone 5 mg-acetaminophen 325 1 tab PO Q6H PRN pain #14 tabs 01/09/25 mg tablet Allergies Allergy/AdvReac Type Severity Reaction Status Date / Time luciano Allergy Severe Anaphylaxis Verified 12/31/24 16:02 venom-honey bee (bee venom Allergy Severe SWOLLEN Verified 12/31/24 16:02 (honey bee)) TONGUE AND THROAT BUT NOT ANAPHALAXIS gabapentin Allergy Unknown MY Verified 12/31/24 16:02 THOUGHT IT MADE ME ACT WERID colchicine AdvReac Severe Rhabdomyoly Verified 01/09/25 17:21 sis lidocaine AdvReac Severe sanchez - Verified 12/31/24 16:02 rash rosuvastatin AdvReac Severe Rhabdomyoly Verified 01/09/25 17:21 sis duloxetine AdvReac Intermediate Confusion Verified 12/31/24 16:02 nortriptyline AdvReac Intermediate Anxiety Verified 12/31/24 16:02 pregabalin (From LYRICA) AdvReac Intermediate 'WELTS ON Verified 12/31/24 16:02 MY BODY' cyclobenzaprine (From AdvReac Unknown Anxiety Verified 12/31/24 16:02 FLEXERIL) hydroxyzine AdvReac Unknown PT STATES Verified 12/31/24 16:02 EYES DRIES ME UP venlafaxine AdvReac Unknown MADE MY Verified 12/31/24 16:02 BLOOD PRESSURE HIGH trazodone AdvReac heart Verified 12/31/24 16:02 palpatations fake sugar Allergy Unknown blotchy Uncoded 12/31/24 16:02 Review of Systems <Marvel C.H. Bishop, DO - Last Filed: 01/10/25 14:57> Review of Systems ROS Unobtainable: All systems reviewed & are unremarkable except as noted in HPI and below Patient History <Marvel Bishop DO - Last Filed: 01/10/25 14:57> Medical History (Updated 01/09/25 @ 23:15 by Wilson Godoy MD) Cerebrovascular disease History of cervical cancer Gout Age-related osteoporosis without current pathological fracture Venous (peripheral) insufficiency Coronary artery disease Recurrent falls GERD without esophagitis Chronic kidney disease, stage 3b Polyneuropathy, unspecified Mixed hyperlipidemia Essential hypertension Type 2 diabetes mellitus with cardiac complication Insomnia Obstructive sleep apnea Central sleep apnea Vaginal atrophy Hypertensive urgency Generalized anxiety disorder GERD (gastroesophageal reflux disease) (1980) Esophageal stricture (09/2017) Pancreatitis (2010) Spinal stenosis Shoulder pain Lumbar spine pain Chronic headaches ADHD (attention deficit hyperactivity disorder) Chronic cough Cataract Chicken pox Hyperlipidemia (1991) Hypertension (1991) Kidney stones Scoliosis COPD (chronic obstructive pulmonary disease) Anxiety Sarcoidosis History of blood transfusion (~07/1981) 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 2 diabetes mellitus with diabetic polyneuropathy (07/22/15) Fibromyalgia (06/24/15) Influenza B Back pain Weakness of both legs Right fibular fracture Trichotillomania Major depressive disorder, recurrent, moderate Post-traumatic stress disorder, chronic Surgical History Status post cataract extraction S/P dilatation of esophageal stricture (09/2017) Anesthesia Status post delivery (05/02/85) History of tonsillectomy (1967) Status post cholecystectomy (02/1985) Status post hysterectomy (1986) Family History Brother Age: 67 Diabetes mellitus Child Age: 43 Asthma Child Heart defect Father Age: 87 Hypertension Cirrhosis of liver Mother Heart disease High cholesterol Amyloidosis Sister Age: 64 Diabetes mellitus Heart disease Sister Heart disease Social History household members: spouse alcohol intake: never alcohol intake frequency: holidays/special occasions only Exam <Marvel Bishop DO - Last Filed: 01/10/25 14:57> Narrative Exam Narrative: GENERAL: [59] year old patient appears stated age. Well-developed patient, in mild distress. HEAD: Atraumatic. Normocephalic. EYES: Pupils equal round and reactive. Extraocular motions intact. No scleral icterus. No injection or drainage. ENT: Nose without bleeding, purulent drainage. Throat without erythema, tonsillar hypertrophy or exudate. Airway patent. NECK: Trachea midline. Non tender CARDIOVASCULAR: Regular rate and rhythm without murmurs, gallops, or rubs. RESPIRATORY: Clear to auscultation. Breath sounds equal bilaterally. No wheezes, rales, or rhonchi. GASTROINTESTINAL: Abdomen soft, non-tender, nondistended. EXTREMITIES: No edema or joint tenderness. BACK: Nontender without deformity or crepitance. No flank tenderness. NEURO: AOx3. SKIN: No rash or erythema of visible areas Initial Vital Signs Initial Vital Signs: Vital Signs Temperature 98.0 F 01/09/25 16:35 Pulse Rate 110 H 01/09/25 16:35 Respiratory Rate 20 01/09/25 16:35 Blood Pressure 146/92 H 01/09/25 16:35 Pulse Oximetry 99 01/09/25 16:35 Oxygen Delivery Method Room Air 01/09/25 16:35 <Wilson Godoy MD - Last Filed: 01/10/25 02:47> Initial Vital Signs Initial Vital Signs: Vital Signs Temperature 98.0 F 01/09/25 16:35 Pulse Rate 110 H 01/09/25 16:35 Respiratory Rate 20 01/09/25 16:35 Blood Pressure 146/92 H 01/09/25 16:35 Pulse Oximetry 99 01/09/25 16:35 Oxygen Delivery Method Room Air 01/09/25 16:35 Course <Marvel Bishop DO - Last Filed: 01/10/25 14:57> Orders Ordered: Discontinued Medications Hydrocodone Bitart/Acetaminophen (Hydrocodone/Acet 5/325 Tablet) 1 tab PO NOW ONE Stop: 01/09/25 22:40 Last Admin: 01/09/25 23:08 Dose: 1 tab Documented By: MELISSA Hydrocodone Bitart/Acetaminophen (Hydrocodone/Acet 5/325 Prepack) 1 bottle MISC DIRECTED ONE Stop: 01/09/25 23:20 Last Admin: 01/09/25 23:33 Dose: 1 bottle Documented By: MELISSA Aspirin (Aspirin 81 Mg Chew Tab) 324 mg PO NOW ONE Stop: 01/09/25 17:16 Last Admin: 01/09/25 19:01 Dose: 324 mg Documented By: MELISSA Heparin Sodium/Dextrose (Heparin Drip) 25,000 unit in 500 mls @ 12.846 mls/hr IV CONT SYLVESTER; Protocol Last Admin: 01/09/25 19:20 Dose: Not Given Documented By: MELISSA Metoprolol Tartrate (Metoprolol Tartrate 5 Mg/5 Ml Inj) 5 mg IV NOW ONE Stop: 01/09/25 18:48 Last Admin: 01/09/25 19:01 Dose: 5 mg Documented By: MELISSA Morphine Sulfate (Morphine 4 Mg/Ml Inj) 4 mg IV NOW ONE Stop: 01/09/25 17:16 Last Admin: 01/09/25 18:31 Dose: 4 mg Documented By: KVNG Morphine Sulfate (Morphine 4 Mg/Ml Inj) 4 mg IV NOW ONE Stop: 01/09/25 22:37 Last Admin: 01/09/25 23:03 Dose: 4 mg Documented By: MELISSA Nitroglycerin (Nitroglycerin 0.4 Mg Sl Tab) 0.4 mg SL [id number] PRN PRN Reason: Chest Pain Last Admin: 01/09/25 19:02 Dose: 0.4 mg Documented By: MELISSA Vital Signs Vital signs: Vital Signs - 8 hr 01/09/25 19:00 01/09/25 19:00 01/09/25 19:02 Pulse Rate 100 H 97 H Respiratory Rate 23 Blood Pressure 190/77 H 190/77 H Pulse Oximetry 97 Oxygen Delivery Method 01/09/25 19:07 01/09/25 19:07 01/09/25 19:10 Pulse Rate 111 H Respiratory Rate 23 Blood Pressure 135/60 133/59 L Pulse Oximetry 96 Oxygen Delivery Method 01/09/25 19:10 01/09/25 19:16 01/09/25 19:16 Pulse Rate 109 H 78 Respiratory Rate 23 23 Blood Pressure 136/63 Pulse Oximetry 96 96 Oxygen Delivery Method 01/09/25 19:30 01/09/25 19:30 01/09/25 20:00 Pulse Rate 77 Respiratory Rate 22 Blood Pressure 153/71 H 160/75 H Pulse Oximetry 96 Oxygen Delivery Method 01/09/25 20:00 01/09/25 20:30 01/09/25 20:30 Pulse Rate 78 77 Respiratory Rate 22 23 Blood Pressure 169/69 H Pulse Oximetry 95 96 Oxygen Delivery Method Room Air 01/09/25 21:00 01/09/25 21:00 01/09/25 21:30 Pulse Rate 77 78 Respiratory Rate 29 H 32 H Blood Pressure 155/67 H Pulse Oximetry 96 96 Oxygen Delivery Method 01/09/25 21:30 01/09/25 22:00 01/09/25 22:00 Pulse Rate 81 Respiratory Rate 23 Blood Pressure 174/72 H 193/74 H Pulse Oximetry 96 Oxygen Delivery Method 01/09/25 22:30 01/09/25 22:30 01/09/25 23:00 Pulse Rate 80 78 Respiratory Rate 23 23 Blood Pressure 188/73 H Pulse Oximetry 96 96 Oxygen Delivery Method 01/09/25 23:00 01/09/25 23:30 01/09/25 23:30 Pulse Rate 80 Respiratory Rate 22 Blood Pressure 178/67 H 191/77 H Pulse Oximetry 94 Oxygen Delivery Method Room Air <Wilson Godoy MD - Last Filed: 01/10/25 02:47> Orders Ordered: Discontinued Medications Hydrocodone Bitart/Acetaminophen (Hydrocodone/Acet 5/325 Tablet) 1 tab PO NOW ONE Stop: 01/09/25 22:40 Last Admin: 01/09/25 23:08 Dose: 1 tab Documented By: MELISSA Hydrocodone Bitart/Acetaminophen (Hydrocodone/Acet 5/325 Prepack) 1 bottle MISC DIRECTED ONE Stop: 01/09/25 23:20 Last Admin: 01/09/25 23:33 Dose: 1 bottle Documented By: MELISSA Aspirin (Aspirin 81 Mg Chew Tab) 324 mg PO NOW ONE Stop: 01/09/25 17:16 Last Admin: 01/09/25 19:01 Dose: 324 mg Documented By: MELISSA Heparin Sodium/Dextrose (Heparin Drip) 25,000 unit in 500 mls @ 12.846 mls/hr IV CONT SYLVESTER; Protocol Last Admin: 01/09/25 19:20 Dose: Not Given Documented By: MELISSA Metoprolol Tartrate (Metoprolol Tartrate 5 Mg/5 Ml Inj) 5 mg IV NOW ONE Stop: 01/09/25 18:48 Last Admin: 01/09/25 19:01 Dose: 5 mg Documented By: MELISSA Morphine Sulfate (Morphine 4 Mg/Ml Inj) 4 mg IV NOW ONE Stop: 01/09/25 17:16 Last Admin: 01/09/25 18:31 Dose: 4 mg Documented By: KVNG Morphine Sulfate (Morphine 4 Mg/Ml Inj) 4 mg IV NOW ONE Stop: 01/09/25 22:37 Last Admin: 01/09/25 23:03 Dose: 4 mg Documented By: MELISSA Nitroglycerin (Nitroglycerin 0.4 Mg Sl Tab) 0.4 mg SL [id number] PRN PRN Reason: Chest Pain Last Admin: 01/09/25 19:02 Dose: 0.4 mg Documented By: MELISSA Vital Signs Vital signs: Vital Signs - 8 hr 01/09/25 19:00 01/09/25 19:00 01/09/25 19:02 Pulse Rate 100 H 97 H Respiratory Rate 23 Blood Pressure 190/77 H 190/77 H Pulse Oximetry 97 Oxygen Delivery Method 01/09/25 19:07 01/09/25 19:07 01/09/25 19:10 Pulse Rate 111 H Respiratory Rate 23 Blood Pressure 135/60 133/59 L Pulse Oximetry 96 Oxygen Delivery Method 01/09/25 19:10 01/09/25 19:16 01/09/25 19:16 Pulse Rate 109 H 78 Respiratory Rate 23 23 Blood Pressure 136/63 Pulse Oximetry 96 96 Oxygen Delivery Method 01/09/25 19:30 01/09/25 19:30 01/09/25 20:00 Pulse Rate 77 Respiratory Rate 22 Blood Pressure 153/71 H 160/75 H Pulse Oximetry 96 Oxygen Delivery Method 01/09/25 20:00 01/09/25 20:30 01/09/25 20:30 Pulse Rate 78 77 Respiratory Rate 22 23 Blood Pressure 169/69 H Pulse Oximetry 95 96 Oxygen Delivery Method Room Air 01/09/25 21:00 01/09/25 21:00 01/09/25 21:30 Pulse Rate 77 78 Respiratory Rate 29 H 32 H Blood Pressure 155/67 H Pulse Oximetry 96 96 Oxygen Delivery Method 01/09/25 21:30 01/09/25 22:00 01/09/25 22:00 Pulse Rate 81 Respiratory Rate 23 Blood Pressure 174/72 H 193/74 H Pulse Oximetry 96 Oxygen Delivery Method 01/09/25 22:30 01/09/25 22:30 01/09/25 23:00 Pulse Rate 80 78 Respiratory Rate 23 23 Blood Pressure 188/73 H Pulse Oximetry 96 96 Oxygen Delivery Method 01/09/25 23:00 01/09/25 23:30 01/09/25 23:30 Pulse Rate 80 Respiratory Rate 22 Blood Pressure 178/67 H 191/77 H Pulse Oximetry 94 Oxygen Delivery Method Room Air MDM - Chest Pain <Marvel CElisHElis Bishop, DO - Last Filed: 01/10/25 14:57> Lab Data 01/09/25 18:15 01/09/25 18:15 Labs: Lab Results 01/09/25 01/09/25 Range/Units 18:15 20:20 WBC 11.4 H (4.5-11.0) X10^3/uL RBC 4.07 (4.0-5.2) X10^6/uL Hgb 13.1 (12.0-16.0) g/dL Hct 38.8 (36-46) % MCV 95.5 (80-100) fL MCH 32.2 (26-34) PG MCHC 33.7 (30-36) % RDW 14.2 (11.6-14.8) % Plt Count 183 (150-400) X10^3/uL Neut % (Auto) 61.9 (50-75) % Lymph % (Auto) 30.7 (25-40) % Clay % (Auto) 5.0 (3-14) % Eos % (Auto) 1.1 L (2-4) % Baso % (Auto) 1.3 (0-2) % Neut # (Auto) 7100 H (9818-6159) /uL Lymph # (Auto) 3500 (3531-5083) /uL Clay # (Auto) 600 (0-900) /uL Eos # (Auto) 100 (0-450) /uL Baso # (Auto) 100 (0-100) /uL PT 11.1 (9.4-12.5) SECONDS INR 1.0 (0.9-1.3) APTT 35 (25.1-36.5) SECONDS Sodium 141 (137-145) mmol/L Potassium 4.3 (3.4-5.1) mmol/L Chloride 113 H (98-107) mmol/L Carbon Dioxide 14 L (22-32) mmol/L BUN 33 H (7-17) mg/dL Creatinine 2.34 H (0.52-1.04) mg/dL Estimated GFR 23 L (>60) mL/min BUN/Creatinine Ratio 14.1 (6-22) Glucose 162 H (70-99) mg/dL Calcium 9.6 (8.4-10.2) mg/dL Magnesium 2.0 (1.6-2.3) mg/dL Total Bilirubin 0.7 (0.2-1.3) mg/dL AST 43 H (14-36) IU/L ALT 27 (<35) IU/L Alkaline Phosphatase 326 H (38-126) U/L Total Creatine Kinase 110 (30-135) U/L Troponin I 0.015 0.017 (0.01-0.034) ng/mL NT-Pro-B Natriuret Pep 464 H (<125) pg/mL Total Protein 8.5 H (6.3-8.2) g/dL Albumin 4.4 (3.5-5.0) g/dL Globulin 4.1 (1.7-4.1) g/dL Albumin/Globulin Ratio 1.1 (1.0-2.8) Lipase 251 (23-300) U/L ECG Data Interpretation: Sinus Tach HR 104 CT 130 QRS [address]-t wave change Change from11/11/23 [facility] Narrative Medical decision making narrative: All lab work, vital signs, nurse triage note, medication list, previous ER visits and all imaging studies reviewed. EKG showed sinus tach heart rate of [address]-T wave changes. Chest x-ray showed no acute process. WBC 11.4 BUN 33 creatinine 2.34, troponin pending at sign-out. Patient given aspirin. Differential diagnosis STEMI, NSTEMI, PE, aortic aneurysm, dissection, unstable angina, gerd, anxiety, costocondritis, chest wall pain. Patient signed out to Dr. Godoy at shift change pending final disposition. <Wilson Godoy MD - Last Filed: 01/10/25 02:47> Lab Data Lab results narrative: White blood cell count 70315, hemoglobin 13.1, platelets adequate. Glucose 162. BUN 33 with creatinine 2.34 elevated liver functions. Serum CO2 14 decreased. Sodium 141 and potassium 4.3 normal. Alkaline phosphatase 326 elevated, AST 43 slight elevation, ALT 27, T bili 0.7. Lipase normal. BNP 464. Troponin 0.015 measurable but low. Labs: Lab Results 01/09/25 01/09/25 Range/Units 18:15 20:20 WBC 11.4 H (4.5-11.0) X10^3/uL RBC 4.07 (4.0-5.2) X10^6/uL Hgb 13.1 (12.0-16.0) g/dL Hct 38.8 (36-46) % MCV 95.5 (80-100) fL MCH 32.2 (26-34) PG MCHC 33.7 (30-36) % RDW 14.2 (11.6-14.8) % Plt Count 183 (150-400) X10^3/uL Neut % (Auto) 61.9 (50-75) % Lymph % (Auto) 30.7 (25-40) % Clay % (Auto) 5.0 (3-14) % Eos % (Auto) 1.1 L (2-4) % Baso % (Auto) 1.3 (0-2) % Neut # (Auto) 7100 H (8957-1312) /uL Lymph # (Auto) 3500 (4225-5938) /uL Clay # (Auto) 600 (0-900) /uL Eos # (Auto) 100 (0-450) /uL Baso # (Auto) 100 (0-100) /uL PT 11.1 (9.4-12.5) SECONDS INR 1.0 (0.9-1.3) APTT 35 (25.1-36.5) SECONDS Sodium 141 (137-145) mmol/L Potassium 4.3 (3.4-5.1) mmol/L Chloride 113 H (98-107) mmol/L Carbon Dioxide 14 L (22-32) mmol/L BUN 33 H (7-17) mg/dL Creatinine 2.34 H (0.52-1.04) mg/dL Estimated GFR 23 L (>60) mL/min BUN/Creatinine Ratio 14.1 (6-22) Glucose 162 H (70-99) mg/dL Calcium 9.6 (8.4-10.2) mg/dL Magnesium 2.0 (1.6-2.3) mg/dL Total Bilirubin 0.7 (0.2-1.3) mg/dL AST 43 H (14-36) IU/L ALT 27 (<35) IU/L Alkaline Phosphatase 326 H (38-126) U/L Total Creatine Kinase 110 (30-135) U/L Troponin I 0.015 0.017 (0.01-0.034) ng/mL NT-Pro-B Natriuret Pep 464 H (<125) pg/mL Total Protein 8.5 H (6.3-8.2) g/dL Albumin 4.4 (3.5-5.0) g/dL Globulin 4.1 (1.7-4.1) g/dL Albumin/Globulin Ratio 1.1 (1.0-2.8) Lipase 251 (23-300) U/L [facility] Narrative Medical decision making narrative: 01/09/25, 1830Walt. Signout from Dr Bishop, see his H&P. 59-year-old female with history of previous stroke and residual left hemiparesis, history of CAD with single-vessel stent in the past, diabetes, hypertension, hypercholesterolemia, had chest pain earlier today. Patient received nitroglycerin and aspirin. Chest x-ray negative. Initial troponin negative. EKG without obvious ST segment elevation. Renal insufficiency, creatinine 2.34 elevated today, no CT angiogram study ordered to search for PE. Renal function has been further elevated in the past. Repeat interval troponin pending. Assumed interim care. Initial lab data: White blood cell count 30940, hemoglobin 13.1, platelets adequate. Glucose 162. BUN 33 with creatinine 2.34 elevated liver functions. Serum CO2 14 decreased. Sodium 141 and potassium 4.3 normal. Alkaline phosphatase 326 elevated, AST 43 slight elevation, ALT 27, T bili 0.7. Lipase normal. BNP 464. Troponin 0.015 measurable but low. Patient having more discomfort, sharp quality left anterior chest, reproducible with palpation, also has discomfort upper left chest that also seems to have tenderness, and tenderness in the left upper trapezius region and lateral sternocleidomastoid musculature. No skin rash or bruising changes. Current apain symptoms seem most consistent with musculoskeletal cause. History of fibromyalgia noted. Patient requesting further pain medications. IV morphine. Oral hydrocodone. Patient is taking tizanidine muscle relaxant already. We will discharge patient home on further analgesics. She feels better and would like to go home. Home with . Further workup as an outpatient for now. Follow up with PCP advised early next week. Discharge Plan Departure Patient Disposition: Home Clinical Impression: Chest wall pain Instructions: DI for Atypical Chest Pain Activity Restrictions/Additional Instructions: History of fibromyalgia, left-sided chest pain, with tenderness on examination in the left anterior chest lower and upper, as well as the left trapezius, pain that is reproducible with palpation of those areas on examination. EKG and serial blood tests not suggestive of heart attack at this time. Chest x-ray study unremarkable. You are taking muscle relaxant tizanidine. You can not take Motrin/naproxen due to chronic kidney disease. Keep taking your muscle relaxant medications. Hydrocodone home pack dispensed. Hydrocodone prescription sent to your pharmacy. Recheck symptoms with your regular doctor on Sunday after this weekend. Return earlier to this/nearest emergency department for any change worsening symptoms or any concerns prior. Prescriptions: New hydrocodone-acetaminophen 5-325 mg tablet 1 tab PO Q6H PRN (Reason: pain) Qty: 14 0RF No Action prenat.vits,jeremy,[id number] tablet 1 tab PO DAILY quetiapine 50 mg tablet 100 mg PO BEDTIME Qty: 180 3RF insulin glargine [Lantus Solostar U-100 Insulin] 100 unit/mL (3 mL) insulin pen 30 unit SUBCUT HS Qty: 1 3RF (DME) DISABLED PARKING PERMIT See Rx Instructions .ROUTE .MEDSUPPLY Qty: 1 0RF Rx Instructions: I FIND THIS PATIENT TO BE MEDICALLY DISABLED AND QUALIFIED FOR DISABLE PARKING INDICATED, AND SIGNED ON THE ACCOMPANYING [facility] [employer] APPLICATION FOR INDIVIDUALS estradiol 0.05 mg/24 hr patch semiweekly 1 patch topical 2XW Qty: 24 3RF dextroamphetamine-amphetamine 5 mg capsule,extended release 24hr 5 mg PO QAM Qty: 30 0RF prazosin 1 mg capsule 5 mg PO ONCE PM Qty: 150 0RF pantoprazole [Protonix] 40 mg tablet,delayed release (DR/EC) 80 mg PO QAM Qty: 180 3RF Rx Instructions: BEFORE BREAKFAST. amitriptyline 25 mg tablet 25 mg PO BEDTIME ferrous sulfate 325 mg (65 mg iron) tablet 325 mg PO Q OTHER DAY insulin lispro [Humalog KwikPen Insulin] 100 unit/mL insulin pen 10 - 15 unit SUBCUT USEASDIRECTD Qty: 1 3RF torsemide 20 mg tablet 20 mg PO QAM Trintellix 20 mg tablet 20 mg PO .HS ondansetron 4 mg tablet,disintegrating 4 mg Sublingual Q6HP PRN (Reason: nausea and vomiting) Qty: 120 2RF Rx Instructions: 1-2 tabs every 6 hours Savella 12.5 mg tablet 12.5 mg PO BID Qty: 60 2RF famotidine 40 mg tablet 40 mg PO DAILY albuterol sulfate 2.5 mg /3 mL (0.083 %) solution for nebulization 2.5 mg INHALATION Q6H PRN (Reason: shortness of breath or wheezing) Qty: 90 11RF tizanidine 4 mg tablet 4 mg PO Q8H PRN (Reason: muscle spasticity) Qty: 120 3RF nystatin-triamcinolone 100,000-0.1 unit/gram-% ointment See Rx Instructions TOP BID Qty: 30 0RF Dose Instruction: TOP BID; Apply to affected area BID 2-3 weeks Rx Instructions: apply small amount TOP BID; Apply to affected area BID 2-3 weeks aspirin 81 mg tablet,delayed release (DR/EC) 81 mg PO DAILY nitroglycerin 0.4 mg tablet, sublingual 0.4 mg sublingual Q5-15M PRN (Reason: Chest Pain) Rx Instructions: do not exceed 3 doses per episode epinephrine 0.3 mg/0.3 mL auto-injector 0.3 mg IM PRN PRN (Reason: Anaphylaxis) Qty: 1 11RF (DME) Dexcom G6 Sensor Device See Rx Instructions .ROUTE .MEDSUPPLY Qty: 3 Patient Comments: CHANGE EVERY 10 DAYS Rx Instructions: As directed; change every 10 days. albuterol sulfate [Ventolin HFA] 90 mcg/actuation HFA aerosol inhaler 1 puff inhalation Q6H PRN (Reason: shortness of breath or wheezing) Qty: 18 6RF tramadol 50 mg tablet 50 mg PO Q6H PRN (Reason: pain) Qty: 40 1RF allopurinol 300 mg tablet 300 mg PO DAILY Qty: 90 3RF Savella 12.5 mg tablet 12.5 mg PO BID oxycodone 5 mg tablet 5 mg PO 3XD PRN dicyclomine 20 mg Tablet 20 mg PO QID PRN (Reason: stomach cramping) amlodipine 10 mg Tablet 10 mg PO DAILY cyclosporine 0.05 % Dropperette 1 drp OPHTHALMIC (EYE) Rx Instructions: 1 drop both eyes BID clonazepam 0.5 mg tablet 0.5 mg PO BID PRN (Reason: Anxiety) potassium chloride 20 mEq Tablet Extended Release 20 meq PO BID Glucagon Emergency Kit (human) 1 mg Recon Soln 1 mg SUBCUT Q20M PRN (Reason: Hypoglycemia) Referrals: Jigar Bird MD [Primary Care Provider, Internal Medicine] Stand Alone Forms: Patient Portal/API
--- NOTE | 2025-01-09 17:15 | EKG_ITS ---
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
[2025-01-09] MEDS: MORPHINE 4 MG/ML INJ IV ×2 (18:31→23:03)
[2025-01-09 18:32] LABS: Add Manual Diff / Slide Review NO; Basophils Absolute Auto 100 /uL (0-100); Basophils Percent Auto 1.3 % (0-2); Eosinophils Absolute Auto 100 /uL (0-450); Eosinophils Percent Auto 1.1 % (2-4); Hematocrit 38.8 % (36-46); Hemoglobin 13.1 g/dL (12.0-16.0); Lymphocytes Absolute Auto 3500 /uL (1100-4500); Lymphocytes Percent Auto 30.7 % (25-40); Mean Corpuscular HGB Conc 33.7 % (30-36); Mean Corpuscular Hemoglobin 32.2 PG (26-34); Mean Corpuscular Volume 95.5 fL (80-100); Monocytes Absolute Auto 600 /uL (0-900); Neutrophils Absolute Auto 7100 /uL (1500-7000); Neutrophils Percent Auto 61.9 % (50-75); Platelet Count 183 X10^3/uL (150-400); Red Blood Cell Count 4.07 X10^6/uL (4.0-5.2); Red Cell Distribution Width 14.2 % (11.6-14.8); White Blood Cell Count 11.4 X10^3/uL (4.5-11.0)
--- NOTE | 2025-01-09 18:32 | EKG_ITS ---
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
[2025-01-09 18:36] LABS: Prothrombin Time 11.1 SECONDS (9.4-12.5)
[2025-01-09 18:38] LABS: PTT Partial Thromboplastin Tim 35 SECONDS (25.1-36.5)
[2025-01-09 18:39] LABS: Alanine Aminotransferase 27 IU/L (<35); Albumin 4.4 g/dL (3.5-5.0); Albumin Globulin Ratio 1.1 (1.0-2.8); Alkaline Phosphatase 326 U/L (38-126); Aspartate Aminotransferase 43 IU/L (14-36); BUN Creatinine Ratio 14.1 (6-22); Bilirubin Total 0.7 mg/dL (0.2-1.3); Blood Urea Nitrogen 33 mg/dL (7-17); Calcium 9.6 mg/dL (8.4-10.2); Carbon Dioxide 14 mmol/L (22-32); Chloride 113 mmol/L (98-107); Creatine Kinase 110 U/L (30-135); Estimated Glomerular Filt Rate 23 mL/min (>60); Globulin 4.1 g/dL (1.7-4.1); Glucose 162 mg/dL (70-99); HEMOLYSIS < 15 (0-50); Lipase 251 U/L (23-300); Potassium 4.3 mmol/L (3.4-5.1); Sodium 141 mmol/L (137-145); Total Protein 8.5 g/dL (6.3-8.2)
[2025-01-09 18:51] LABS: NT-proBNP (BNP-Adult 18+) 464 pg/mL (<125); Troponin I 0.015 ng/mL (0.01-0.034)
[2025-01-09] MEDS: METOPROLOL TARTRATE 5 MG/5 ML INJ IV (19:01)
[2025-01-09] MEDS: ASPIRIN 81 MG CHEW TAB 324 MG PO (19:01)
[2025-01-09] MEDS: NITROGLYCERIN 0.4 MG SL TAB SL (19:02)
[2025-01-09 20:54] LABS: Troponin I 0.017 ng/mL (0.01-0.034)
[2025-01-09] MEDS: HYDROCODONE/ACET 5/325 TABLET 1 TAB PO (23:08)
[2025-01-09] MEDS: HYDROCODONE/ACET 5/325 PREPACK 1 BOTTLE MISC (23:33)
== END 2025-01-09 23:45 | disposition home or self-care (01) ==
PROVIDERS: Family Medicine; Emergency Provider Emergency Medicine; PCP Internal Medicine
DX: R07.89 Other chest pain (principal); R11.0 Nausea; Z86.73 Personal history of transient ischemic attack (TIA), and cerebral infarction without residual deficits
CPT/HCPCS: 36415; 71045; 80053; 82550; 83690; 83735; 83880; 84484; 85025; 85610; 85730; 93005; 96374; 96375; 96376; 99284; J2270

== ENCOUNTER 2025-01-29 16:40 | Emergency (ER) | payer OTHER, SELFPAY ==
[2023-09-03 08:36] VITALS: BMI 24.8
[2025-01-29] VITALS (20 sets, daily range): BP systolic 165–234; BP diastolic 74–107; PULSE 75–98; RESP 18–39; TEMP 37.1; O2SAT 98–100; BMI 24.8
--- NOTE | 2025-01-29 16:49 | DI.CT.S_ITS ---
PROCEDURE: CT CHEST ABD PEL W CON INDICATIONS: fall yesterday, chest and abdominal pain TECHNIQUE: After the administration of intravenous contrast, 5 mm thick sections acquired from the lung apices to the symphysis. 2.5 mm thick coronal and sagittal reformats were acquired. Additional 7 mm thick coronal maximum intensity projection (MIP) reformats acquired through the lungs. Optional 10-minute delayed imaging may be performed from the kidneys to the bladder. For radiation dose reduction, the following was used: automated exposure control, adjustment of mA and/or kV according to patient size. COMPARISON: [facility], CT, CT CHEST ABDOMEN PELVIS WITHOUT CONTRAST, 08/15/2024, 12:23. FINDINGS: Image quality: Diagnostic. CHEST: Lower Neck: No enlarged lymph nodes. Thyroid: No thyroid nodules which require sonographic evaluation. Axillae: No enlarged lymph nodes. Chest Wall: No subcutaneous gas. Lungs and Pleura: No pulmonary contusions or lacerations. No acute airspace opacities. No pneumothorax or hemothorax. Mediastinum: No mediastinal hematomas. Heart size is normal. No pericardial effusion. Thoracic aorta and pulmonary arteries demonstrate normal size and enhancement. No mediastinal or hilar adenopathy. Esophagus is normal in caliber. Small hiatal hernia. ABDOMEN: Liver: No lacerations. Cirrhosis. Single phase contrast evaluation is suboptimal for detection of hepatocellular carcinoma. No large mass identified. Patent portal vein. Gallbladder: Absent. Biliary ducts: No intrahepatic or extrahepatic biliary dilation, accounting for a post cholecystectomy state. Pancreas: Homogenous enhancement. Spleen: Homogenous enhancement without laceration or hematoma. Adrenal Glands: Symmetric enhancement. Kidneys and Ureters: Symmetric enhancement. No hydronephrosis. No solid mass. No complex renal cystic lesion which requires follow up. Stomach and Bowel: Normal colonic caliber, without significant wall thickening. Peritoneum: No abnormal intraperitoneal fluid. No free air. Ventral Wall: No hernia. Abdominal Nodes: No retroperitoneal or mesenteric adenopathy by size criteria. Vessels: Aorta and inferior vena cava are normal in size. PELVIS: Pelvic Organs: Unremarkable. Bladder: Normal thickness. Pelvic Nodes: No enlarged lymph nodes. Miscellaneous: No inguinal hernias are seen. Bones: Pelvic ring and hip joints appear intact. No displaced rib fractures. Reverse S curvature of the thoracolumbar spine. IMPRESSION: No evidence of traumatic injury to the chest, abdomen or pelvis. Cirrhosis. Single phase contrast evaluation is suboptimal for detection of hepatocellular carcinoma. No large mass identified. Patent portal vein. Regular interval HCC screening is recommended. Dictated by: Akbar Vera M.D. on 01/29/2025 at 18:17 Approved by: Akbar Vera M.D. on 01/29/2025 at 18:21
--- NOTE | 2025-01-29 16:49 | EKG_ITS ---
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
[2025-01-29 17:17] LABS: Add Manual Diff / Slide Review NO; Basophils Absolute Auto 100 /uL (0-100); Basophils Percent Auto 1.2 % (0-2); Eosinophils Absolute Auto 200 /uL (0-450); Eosinophils Percent Auto 2.8 % (2-4); Hematocrit 36.6 % (36-46); Hemoglobin 12.3 g/dL (12.0-16.0); Lymphocytes Absolute Auto 2100 /uL (1100-4500); Lymphocytes Percent Auto 30.4 % (25-40); Mean Corpuscular HGB Conc 33.6 % (30-36); Mean Corpuscular Hemoglobin 32.1 PG (26-34); Mean Corpuscular Volume 95.6 fL (80-100); Monocytes Absolute Auto 300 /uL (0-900); Neutrophils Absolute Auto 4200 /uL (1500-7000); Neutrophils Percent Auto 60.6 % (50-75); Platelet Count 139 X10^3/uL (150-400); Red Blood Cell Count 3.83 X10^6/uL (4.0-5.2); White Blood Cell Count 6.9 X10^3/uL (4.5-11.0)
[2025-01-29 17:30] LABS: Alanine Aminotransferase 31 IU/L (<35); Albumin 4.2 g/dL (3.5-5.0); Albumin Globulin Ratio 1.1 (1.0-2.8); Alkaline Phosphatase 303 U/L (38-126); Aspartate Aminotransferase 48 IU/L (14-36); BUN Creatinine Ratio 19.4 (6-22); Blood Urea Nitrogen 24 mg/dL (7-17); Calcium 9.3 mg/dL (8.4-10.2); Carbon Dioxide 19 mmol/L (22-32); Chloride 110 mmol/L (98-107); Estimated Glomerular Filt Rate 50 mL/min (>60); Globulin 3.7 g/dL (1.7-4.1); Glucose 157 mg/dL (70-99); HEMOLYSIS < 15 (0-50); Lipase 222 U/L (23-300); Potassium 4.8 mmol/L (3.4-5.1); Sodium 138 mmol/L (137-145); Total Protein 7.9 g/dL (6.3-8.2)
[2025-01-29 17:41] LABS: Troponin I < 0.012 ng/mL (0.01-0.034)
--- NOTE | 2025-01-29 18:34 | ED.CHESTPAIN ---
HPI - Chest Pain General Chief Complaint: Chest Pain Stated Complaint: Chest Pain Time Seen by Provider: 01/29/25 16:42 Source: EMS History of Present Illness HPI narrative: 59-year-old female with chronic chest pain, recently increased, left anterior. History of kidney failure, can not take NSAIDs. In the past has responded to oxycodone, does not have a supply. No fevers or chills. No recent cough. Tonight her chronic pain seemed to change, was more intense, and seemed to have somewhat of a ?pulling? sensation to her left anterior chest. No actually injury or new activities recalled. Not particularly worse with truncal neck or extremity movements. Related Data Home Medications ?Medication ?Instructions ?Recorded ?Confirmed prenat.vits,jeremy,syd-aill-dvmry 1 tab PO DAILY 01/18/18 01/13/25 glucagon (human recombinant) 1 mg 1 mg SUBCUT Q20M PRN Hypoglycemia 10/06/18 01/13/25 solution for injection (Glucagon Emergency Kit) aspirin 81 mg tablet,delayed 81 mg PO DAILY 03/21/21 01/13/25 release nitroglycerin 0.4 mg sublingual 0.4 mg sublingual Q5-15M PRN Chest 03/21/21 01/13/25 tablet Pain blood-glucose sensor ([facility] G6 #3 ea 06/21/22 01/13/25 Sensor device) famotidine 40 mg tablet 40 mg PO DAILY 03/20/23 01/13/25 amlodipine 10 mg tablet 10 mg PO DAILY 08/09/24 01/13/25 clonazepam 0.5 mg tablet 0.5 mg PO BID PRN Anxiety 08/09/24 01/13/25 cyclosporine 0.05 % eye drops in a 1 drp ophthalmic (eye) 08/09/24 01/13/25 dropperette dicyclomine 20 mg tablet 20 mg PO QID PRN stomach cramping 08/09/24 01/13/25 potassium chloride 20 mEq 20 meq PO BID 08/09/24 01/13/25 tablet,extended release amitriptyline 25 mg tablet 25 mg PO BEDTIME 11/28/24 01/13/25 ferrous sulfate 325 mg (65 mg 325 mg PO Q OTHER DAY 11/28/24 01/13/25 iron) tablet torsemide 20 mg tablet 20 mg PO QAM 11/28/24 01/13/25 vortioxetine 20 mg tablet 20 mg PO .HS 11/28/24 01/13/25 (Trintellix) milnacipran 12.5 mg tablet 12.5 mg PO BID 12/03/24 01/13/25 (Savella) oxycodone 5 mg tablet 5 mg PO 3XD PRN 12/03/24 01/13/25 carvedilol 3.125 mg tablet 3.125 mg PO BID 01/12/25 01/13/25 Previous Rx's ?Medication ?Instructions ?Recorded insulin glargine 100 unit/mL (3 30 unit (0.3 mL) SUBCUT HS #1 mL 05/31/18 mL) subcutaneous pen (Lantus Solostar U-100 Insulin) nystatin-triamcinolone 100,000 See Rx Instructions topical BID 09/24/18 unit/gram-0.1 % topical ointment #30 grams epinephrine 0.3 mg/0.3 mL 0.3 mg (0.3 mL) IM PRN PRN 03/21/21 injection, auto-injector Anaphylaxis #1 ea DISABLED PARKING PERMIT #1 ea 06/08/21 quetiapine 50 mg tablet 100 mg (2 x 50 mg) PO BEDTIME #180 08/16/23 tabs estradiol 0.05 mg/24 hr semiweekly 1 patch topical 2XW #24 patches 08/21/23 transdermal patch albuterol sulfate 2.5 mg/3 mL 2.5 mg (3 mL) inhalation Q6H PRN 09/20/23 (0.083 %) solution for nebulization shortness of breath or wheezing #90 mL albuterol sulfate 90 mcg/actuation 1 puff inhalation Q6H PRN 03/19/24 aerosol inhaler (Ventolin HFA) shortness of breath or wheezing #18 grams allopurinol 300 mg tablet 300 mg PO DAILY #90 tabs 03/19/24 tramadol 50 mg tablet 50 mg PO Q6H PRN pain #40 tabs 03/19/24 dextroamphetamine-amphetamine ER 5 5 mg PO QAM #30 caps 04/17/24 mg 24hr capsule,extend release prazosin 1 mg capsule 5 mg (5 x 1 mg) PO ONCE PM for 08/22/24 nightmares #150 caps pantoprazole 40 mg tablet,delayed 80 mg (2 x 40 mg) PO QAM #180 tabs 09/18/24 release (Protonix) insulin lispro 100 unit/mL 10 - 15 unit (0.1 - 0.15 mL) 11/28/24 subcutaneous pen (Humalog KwikPen SUBCUT USEASDIRECTD #1 mL (U-100) Insulin) ondansetron 4 mg disintegrating 4 mg sublingual Q6HP PRN nausea 12/19/24 tablet and vomiting #120 tabs tizanidine 4 mg tablet 4 mg PO Q8H PRN muscle spasticity 12/31/24 #120 tabs milnacipran 12.5 mg tablet 12.5 mg PO BID #60 tabs 01/05/25 (Savella) hydrocodone 5 mg-acetaminophen 325 1 tab PO Q6H PRN pain #14 tabs 01/09/25 mg tablet carvedilol 6.25 mg tablet 6.25 mg PO BID #60 tabs 01/13/25 oxycodone 5 mg capsule 5 mg PO TID PRN pain #7 caps 01/29/25 oxycodone 5 mg tablet 5 mg PO Q6H PRN pain #7 tabs 01/29/25 Allergies Allergy/AdvReac Type Severity Reaction Status Date / Time luciano Allergy Severe Anaphylaxis Verified 01/29/25 16:48 venom-honey bee (bee venom Allergy Severe SWOLLEN Verified 01/29/25 16:48 (honey bee)) TONGUE AND THROAT BUT NOT ANAPHALAXIS gabapentin Allergy Unknown MY Verified 01/29/25 16:48 THOUGHT IT MADE ME ACT WERID colchicine AdvReac Severe Rhabdomyoly Verified 01/29/25 16:48 sis lidocaine AdvReac Severe sanchez - Verified 01/29/25 16:48 rash rosuvastatin AdvReac Severe Rhabdomyoly Verified 01/29/25 16:48 sis duloxetine AdvReac Intermediate Confusion Verified 01/29/25 16:48 nortriptyline AdvReac Intermediate Anxiety Verified 01/29/25 16:48 pregabalin (From LYRICA) AdvReac Intermediate 'WELTS ON Verified 01/29/25 16:48 MY BODY' cyclobenzaprine (From AdvReac Unknown Anxiety Verified 01/29/25 16:48 FLEXERIL) hydroxyzine AdvReac Unknown PT STATES Verified 01/29/25 16:48 EYES DRIES ME UP venlafaxine AdvReac Unknown MADE MY Verified 01/29/25 16:48 BLOOD PRESSURE HIGH trazodone AdvReac heart Verified 01/29/25 16:48 palpatations fake sugar Allergy Unknown blotchy Uncoded 01/13/25 10:33 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) Esophageal stricture (09/2017) Essential hypertension Fibromyalgia (06/24/15) Generalized anxiety disorder GERD (gastroesophageal reflux disease) (1980) GERD without esophagitis Gout History of blood transfusion (~07/1981) History of cervical cancer Hyperlipidemia (1991) Hypertension (1991) Hypertensive urgency Influenza B Insomnia Kidney stones Lumbar spine pain Major depressive disorder, recurrent, moderate Mixed hyperlipidemia Obstructive sleep apnea Pancreatitis (2010) Polyneuropathy, unspecified Post-traumatic stress disorder, chronic Recurrent falls Right fibular fracture Sarcoidosis Scoliosis Shoulder pain Spinal stenosis Trichotillomania Type 2 diabetes mellitus with cardiac complication Type 2 diabetes mellitus with diabetic polyneuropathy (07/22/15) Vaginal atrophy Venous (peripheral) insufficiency Weakness of both legs Surgical History Anesthesia History of tonsillectomy (1967) S/P dilatation of esophageal stricture (09/2017) Status post cataract extraction Status post delivery (05/02/85) Status post cholecystectomy (02/1985) Status post hysterectomy (1986) Family History Brother Age: 67 Diabetes mellitus Child Age: 43 Asthma Child Heart defect Father Age: 87 Hypertension Cirrhosis of liver Mother Heart disease High cholesterol Amyloidosis Sister Age: 64 Diabetes mellitus Heart disease Sister Heart disease Social History details: Single, lives alone, no children household members: spouse alcohol intake: never alcohol intake frequency: holidays/special occasions only Exam Narrative Exam Narrative: GENERAL: Well-developed patient, in mild distress. HEAD: Atraumatic. Normocephalic. EYES: Pupils equal round and reactive. Extraocular motions intact. No scleral icterus. No injection or drainage. ENT: Nose without bleeding, purulent drainage. Throat without erythema, tonsillar hypertrophy or exudate. Airway patent. NECK: Trachea midline. Non tender CARDIOVASCULAR: Regular rate and rhythm without murmurs, gallops, or rubs. RESPIRATORY: Clear to auscultation. Breath sounds equal bilaterally. No wheezes, rales, or rhonchi. GASTROINTESTINAL: Abdomen soft, non-tender, nondistended. EXTREMITIES: No edema or joint tenderness. BACK: Nontender without deformity or crepitance. No flank tenderness. NEURO: AOx3. Motor functions grossly nonfocal. SKIN: No rash or erythema of visible areas Initial Vital Signs Initial Vital Signs: Vital Signs Pulse Rate 98 H 01/29/25 16:44 Pulse Oximetry 98 01/29/25 16:44 Course Orders Ordered: Discontinued Medications Hydromorphone HCl (Hydromorphone 0.5 Mg Inj) 0.5 mg IV NOW ONE Stop: 01/29/25 19:00 Last Admin: 01/29/25 19:29 Dose: 0.5 mg Documented By: Morphine Sulfate (Morphine 2 Mg/Ml Inj) 2 mg IV Q5MIN PRN PRN Reason: Chest Pain Ondansetron HCl (Ondansetron 4 Mg/2 Ml Inj) 4 mg IV NOW ONE Stop: 01/29/25 18:43 Last Admin: 01/29/25 18:45 Dose: 4 mg Documented By: Ondansetron HCl (Ondansetron 4 Mg/2 Ml Inj) 4 mg IV NOW ONE Stop: 01/29/25 19:00 Last Admin: 01/29/25 19:26 Dose: Not Given Documented By: Oxycodone/Acetaminophen (Oxycodone/Apap 5/325 Prepack) 1 bottle MISC DIRECTED ONE Stop: 01/29/25 19:46 Last Admin: 01/29/25 21:01 Dose: 1 bottle Documented By: DERRICK Vital Signs Vital signs: Vital Signs - 8 hr 01/29/25 16:44 01/29/25 16:45 01/29/25 16:45 Temperature Pulse Rate 98 H 98 H Respiratory Rate Blood Pressure 171/83 H Pulse Oximetry 98 99 Oxygen Delivery Method 01/29/25 16:48 01/29/25 16:55 01/29/25 16:55 Temperature 98.7 F Pulse Rate 96 H 89 Respiratory Rate 18 30 H Blood Pressure 177/84 H 165/74 H Pulse Oximetry 98 99 Oxygen Delivery Method Room Air 01/29/25 17:00 01/29/25 17:00 01/29/25 17:30 Temperature Pulse Rate 86 87 Respiratory Rate 27 H 20 Blood Pressure 168/79 H Pulse Oximetry 100 100 Oxygen Delivery Method Room Air 01/29/25 17:30 01/29/25 18:00 Temperature Pulse Rate 82 Respiratory Rate 32 H Blood Pressure 176/81 H Pulse Oximetry 99 Oxygen Delivery Method Room Air MDM - Chest Pain Lab Data Attestation: I reviewed the patient's lab results. Lab results narrative: White blood cell count 6900, hemoglobin 12.3, platelets 139k. Sodium 138, potassium 4.8, serum CO2 19. BUN 24 with creatinine 1.24. Glucose 157. Slight elevations ALT and alkaline phosphatase, normal AST and T bili. Lipase 222. 01/29/25 17:11 01/29/25 17:11 Labs: Lab Results 01/29/25 01/29/25 Range/Units 17:11 20:05 WBC 6.9 (4.5-11.0) X10^3/uL RBC 3.83 L (4.0-5.2) X10^6/uL Hgb 12.3 (12.0-16.0) g/dL Hct 36.6 (36-46) % MCV 95.6 (80-100) fL MCH 32.1 (26-34) PG MCHC 33.6 (30-36) % RDW 14.0 (11.6-14.8) % Plt Count 139 L (150-400) X10^3/uL Neut % (Auto) 60.6 (50-75) % Lymph % (Auto) 30.4 (25-40) % Sullivan % (Auto) 5.0 (3-14) % Eos % (Auto) 2.8 (2-4) % Baso % (Auto) 1.2 (0-2) % Neut # (Auto) 4200 (7457-2653) /uL Lymph # (Auto) 2100 (1631-2254) /uL Sullivan # (Auto) 300 (0-900) /uL Eos # (Auto) 200 (0-450) /uL Baso # (Auto) 100 (0-100) /uL Sodium 138 (137-145) mmol/L Potassium 4.8 (3.4-5.1) mmol/L Chloride 110 H (98-107) mmol/L Carbon Dioxide 19 L (22-32) mmol/L BUN 24 H (7-17) mg/dL Creatinine 1.24 H (0.52-1.04) mg/dL Estimated GFR 50 L (>60) mL/min BUN/Creatinine Ratio 19.4 (6-22) Glucose 157 H (70-99) mg/dL Calcium 9.3 (8.4-10.2) mg/dL Total Bilirubin 1.0 (0.2-1.3) mg/dL AST 48 H (14-36) IU/L ALT 31 (<35) IU/L Alkaline Phosphatase 303 H (38-126) U/L Troponin I < 0.012 0.013 (0.01-0.034) ng/mL Total Protein 7.9 (6.3-8.2) g/dL Albumin 4.2 (3.5-5.0) g/dL Globulin 3.7 (1.7-4.1) g/dL Albumin/Globulin Ratio 1.1 (1.0-2.8) Lipase 222 (23-300) U/L Imaging Data CT chest abdomen and pelvis: Radiologist's Impression: [address] [address] [address] Scan Report Signed Patient: Keila Godfrey MR#: [id number] : 1965 Acct:[id number] Age/Sex: 59 / F Date of Service: 01/29/25 Loc: ED Accession Number: [id number] Procedure: CT chest abd pel w con Ordering Provider: Teressa Smith MD PROCEDURE: CT CHEST ABD PEL W CON INDICATIONS: fall yesterday, chest and abdominal pain TECHNIQUE: After the administration of intravenous contrast, 5 mm thick sections acquired from the lung apices to the symphysis. 2.5 mm thick coronal and sagittal reformats were acquired. Additional 7 mm thick coronal maximum intensity projection (MIP) reformats acquired through the lungs. Optional 10-minute delayed imaging may be performed from the kidneys to the bladder. For radiation dose reduction, the following was used: automated exposure control, adjustment of mA and/or kV according to patient size. COMPARISON: [facility], CT, CT CHEST ABDOMEN PELVIS WITHOUT CONTRAST, 08/15/2024, 12:23. FINDINGS: Image quality: Diagnostic. CHEST: Lower Neck: No enlarged lymph nodes. Thyroid: No thyroid nodules which require sonographic evaluation. Axillae: No enlarged lymph nodes. Chest Wall: No subcutaneous gas. Lungs and Pleura: No pulmonary contusions or lacerations. No acute airspace opacities. No pneumothorax or hemothorax. Mediastinum: No mediastinal hematomas. Heart size is normal. No pericardial effusion. Thoracic aorta and pulmonary arteries demonstrate normal size and enhancement. No mediastinal or hilar adenopathy. Esophagus is normal in caliber. Small hiatal hernia. ABDOMEN: Liver: No lacerations. Cirrhosis. Single phase contrast evaluation is suboptimal for detection of hepatocellular carcinoma. No large mass identified. Patent portal vein. Gallbladder: Absent. Biliary ducts: No intrahepatic or extrahepatic biliary dilation, accounting for a post cholecystectomy state. Pancreas: Homogenous enhancement. Spleen: Homogenous enhancement without laceration or hematoma. Adrenal Glands: Symmetric enhancement. Kidneys and Ureters: Symmetric enhancement. No hydronephrosis. No solid mass. No complex renal cystic lesion which requires follow up. Stomach and Bowel: Normal colonic caliber, without significant wall thickening. Peritoneum: No abnormal intraperitoneal fluid. No free air. Ventral Wall: No hernia. Abdominal Nodes: No retroperitoneal or mesenteric adenopathy by size criteria. Vessels: Aorta and inferior vena cava are normal in size. PELVIS: Pelvic Organs: Unremarkable. Bladder: Normal thickness. Pelvic Nodes: No enlarged lymph nodes. Miscellaneous: No inguinal hernias are seen. Bones: Pelvic ring and hip joints appear intact. No displaced rib fractures. Reverse S curvature of the thoracolumbar spine. IMPRESSION: No evidence of traumatic injury to the chest, abdomen or pelvis. Cirrhosis. Single phase contrast evaluation is suboptimal for detection of hepatocellular carcinoma. No large mass identified. Patent portal vein. Regular interval HCC screening is recommended. Dictated by: Akbar Vera M.D. on 01/29/2025 at 18:17 Approved by: Akbar Vera M.D. on 01/29/2025 at 18:21 ECG Data Attestation: I personally reviewed and interpreted this ECG as follows: Interpretation: 1651, normal sinus rhythm with rate of 93, no obvious ST segment elevation or depression changes. VA 134, QRS 60, QTC 455. MDM Narrative Medical decision making narrative: 59-year-old female with chronic chest pain, home albuterol, history of renal insufficiency, avoiding NSAIDs, previous response to oxycodone without home supply current, recurrence and increased left anterior chest discomfort. Screening EKG without obvious ischemic changes. Labs pending. IV Dilaudid, CT chest abdomen pelvis ordered from triage. Results are pending at this time. Initial troponin negative, essentially unchanged on repeat study. CT chest abdomen and pelvis. IMPRESSION: No evidence of traumatic injury to the chest, abdomen or pelvis. Cirrhosis. Single phase contrast evaluation is suboptimal for detection of hepatocellular carcinoma. No large mass identified. Patent portal vein. Regular interval HCC screening is recommended. See radiology report. CT showed no acute chest abdomen and pelvis changes, cirrhosis changes noted. Patient seemed to respond to IV Dilaudid dose. Will refill oxycodone, prescription sent for #7 tablets. Advised to follow up with her PCP. Discharged home with family. Return precautions discussed. Discharge Plan Departure Patient Disposition: Home Clinical Impression: Chronic chest pain Activity Restrictions/Additional Instructions: History of chronic ongoing chest pain, increased recently, with a pulling sensation in the chest. CT angiogram of the chest abdomen and pelvis showed no acute changes. EKG and blood testing not suggestive of heart attack at this time. Previously had responded to oxycodone pain medication. IV Dilaudid given in the emergency department with improved symptoms. We will give home pack and prescription for oxycodone. Recheck with your regular doctor advised early next week. Return to this/nearest emergency department for any change worsening symptoms or any concerns prior. Prescriptions: New oxycodone 5 mg capsule 5 mg PO TID PRN (Reason: pain) Qty: 7 0RF oxycodone 5 mg tablet 5 mg PO Q6H PRN (Reason: pain) Qty: 7 0RF No Action prenat.vits,jeremy,pcg-mpws-pdfsk tablet 1 tab PO DAILY quetiapine 50 mg tablet 100 mg PO BEDTIME Qty: 180 3RF insulin glargine [Lantus Solostar U-100 Insulin] 100 unit/mL (3 mL) insulin pen 30 unit SUBCUT HS Qty: 1 3RF (DME) DISABLED PARKING PERMIT See Rx Instructions .ROUTE .MEDSUPPLY Qty: 1 0RF Rx Instructions: I FIND THIS PATIENT TO BE MEDICALLY DISABLED AND QUALIFIED FOR DISABLE PARKING INDICATED, AND SIGNED ON THE ACCOMPANYING [employer]! APPLICATION FOR INDIVIDUALS estradiol 0.05 mg/24 hr patch semiweekly 1 patch topical 2XW Qty: 24 3RF dextroamphetamine-amphetamine 5 mg capsule,extended release 24hr 5 mg PO QAM Qty: 30 0RF prazosin 1 mg capsule 5 mg PO ONCE PM Qty: 150 0RF pantoprazole [Protonix] 40 mg tablet,delayed release (DR/EC) 80 mg PO QAM Qty: 180 3RF Rx Instructions: BEFORE BREAKFAST. amitriptyline 25 mg tablet 25 mg PO BEDTIME ferrous sulfate 325 mg (65 mg iron) tablet 325 mg PO Q OTHER DAY insulin lispro [Humalog KwikPen Insulin] 100 unit/mL insulin pen 10 - 15 unit SUBCUT USEASDIRECTD Qty: 1 3RF torsemide 20 mg tablet 20 mg PO QAM Trintellix 20 mg tablet 20 mg PO .HS ondansetron 4 mg tablet,disintegrating 4 mg Sublingual Q6HP PRN (Reason: nausea and vomiting) Qty: 120 2RF Rx Instructions: 1-2 tabs every 6 hours Savella 12.5 mg tablet 12.5 mg PO BID Qty: 60 2RF carvedilol 3.125 mg tablet 3.125 mg PO BID Rx Instructions: must administer with a meal/food famotidine 40 mg tablet 40 mg PO DAILY albuterol sulfate 2.5 mg /3 mL (0.083 %) solution for nebulization 2.5 mg INHALATION Q6H PRN (Reason: shortness of breath or wheezing) Qty: 90 11RF tizanidine 4 mg tablet 4 mg PO Q8H PRN (Reason: muscle spasticity) Qty: 120 3RF nystatin-triamcinolone 100,000-0.1 unit/gram-% ointment See Rx Instructions TOP BID Qty: 30 0RF Dose Instruction: TOP BID; Apply to affected area BID 2-3 weeks Rx Instructions: apply small amount TOP BID; Apply to affected area BID 2-3 weeks aspirin 81 mg tablet,delayed release (DR/EC) 81 mg PO DAILY nitroglycerin 0.4 mg tablet, sublingual 0.4 mg sublingual Q5-15M PRN (Reason: Chest Pain) Rx Instructions: do not exceed 3 doses per episode epinephrine 0.3 mg/0.3 mL auto-injector 0.3 mg IM PRN PRN (Reason: Anaphylaxis) Qty: 1 11RF (DME) Dexcom G6 Sensor Device See Rx Instructions .ROUTE .MEDSUPPLY Qty: 3 Patient Comments: CHANGE EVERY 10 DAYS Rx Instructions: As directed; change every 10 days. albuterol sulfate [Ventolin HFA] 90 mcg/actuation HFA aerosol inhaler 1 puff inhalation Q6H PRN (Reason: shortness of breath or wheezing) Qty: 18 6RF tramadol 50 mg tablet 50 mg PO Q6H PRN (Reason: pain) Qty: 40 1RF allopurinol 300 mg tablet 300 mg PO DAILY Qty: 90 3RF Savella 12.5 mg tablet 12.5 mg PO BID oxycodone 5 mg tablet 5 mg PO 3XD PRN carvedilol 6.25 mg tablet 6.25 mg PO BID Qty: 60 5RF Rx Instructions: must administer with a meal/food dicyclomine 20 mg Tablet 20 mg PO QID PRN (Reason: stomach cramping) amlodipine 10 mg Tablet 10 mg PO DAILY cyclosporine 0.05 % Dropperette 1 drp OPHTHALMIC (EYE) Rx Instructions: 1 drop both eyes BID clonazepam 0.5 mg tablet 0.5 mg PO BID PRN (Reason: Anxiety) potassium chloride 20 mEq Tablet Extended Release 20 meq PO BID hydrocodone-acetaminophen 5-325 mg tablet 1 tab PO Q6H PRN (Reason: pain) Qty: 14 0RF Glucagon Emergency Kit (human) 1 mg Recon Soln 1 mg SUBCUT Q20M PRN (Reason: Hypoglycemia) Referrals: Jigar Bird MD [Primary Care Provider, Internal Medicine] Stand Alone Forms: Patient Portal/API
[2025-01-29] MEDS: ONDANSETRON 4 MG/2 ML INJ IV (18:45)
--- NOTE | 2025-01-29 18:52 | PC.NURSE ---
Pt feeling nauseated. Dr Godoy notified. Verbal order received for 4 mg IV Zofran.
[2025-01-29] MEDS: HYDROMORPHONE 0.5 MG INJ IV (19:29)
[2025-01-29 20:45] LABS: Troponin I 0.013 ng/mL (0.01-0.034)
[2025-01-29] MEDS: OXYCODONE/APAP 5/325 PREPACK 1 BOTTLE MISC (21:01)
== END 2025-01-29 21:19 | disposition home or self-care (01) ==
PROVIDERS: Emergency Medicine; Emergency Provider Emergency Medicine; PCP Internal Medicine
DX: R07.9 Chest pain, unspecified (principal); G89.29 Other chronic pain
CPT/HCPCS: 36415; 71260; 74177; 80053; 83690; 84484; 85025; 93005; 96374; 96375; 99284; J1171; J2405; Q9967

== ENCOUNTER 2025-03-05 16:45 | Inpatient (IN) | payer OTHER, SELFPAY ==
[2023-09-03 08:36] VITALS: BMI 24.8
[2025-03-05] VITALS (13 sets, daily range): BP systolic 71–205; BP diastolic 31–95; PULSE 65–98; RESP 16–21; TEMP 36.1–36.7; O2SAT 96–100; BMI 24.2; BMI 24.5
--- NOTE | 2025-03-05 | DI.MRI.S_ITS ---
PROCEDURE: MR HEAD/BRAIN WO CON INDICATIONS: TIA TECHNIQUE: Non-contrast axial T1 spin echo, axial T2 fast spin echo, sagittal and axial FLAIR, coronal T2 fast spin echo, axial gradient echo, axial diffusion and ADC through the brain. COMPARISON: [facility], MR, MR HEAD/BRAIN WO CON, 08/10/2024, 11:51. [facility], CT, CT STROKE, 03/05/2025, 17:09. [facility], CT, CT ANGIO HEAD AND NECK, 03/05/2025, 17:09. [facility], MR, MR STROKE PROTOCOL, 08/13/2024, 16:36. FINDINGS: Image quality: This examination is limited by involuntary motion artifact. CSF spaces: Ventricles appear symmetric in size and shape. Basal cisterns are patent. No extra-axial fluid collections. Brain: No intracranial bleeds or mass effects. There is cerebral volume loss for age. There are periventricular and deep white matter chronic small vessel ischemic changes. Brainstem appears normal. Diffusion-weighted images show no acute infarct. Stable scattered remote infarcts can be seen, including involving the occipital lobes. Normal intravascular flow voids are present. Skull and face: Calvarial bone marrow is normal in signal. Orbits are normal. Note is made of bilateral lens replacements. Sinuses: Sinuses and mastoids are clear. IMPRESSION: No findings of acute or subacute infarction can be seen. Scattered areas of remote infarction can be seen, including involving both occipital lobes. Dictated by: Alessandro Najera M.D. on 03/06/2025 at 10:14 Approved by: Alessandro Najera M.D. on 03/06/2025 at 10:18
--- NOTE | 2025-03-05 17:07 | DI.CT.S_ITS ---
PROCEDURE: CT ANGIO HEAD AND NECK INDICATIONS: Right side weakness TECHNIQUE: After the administration of intravenous contrast, 1 mm thick sections acquired from the aortic arch through the [place] of [place]. 3-dimensional lvxddua-dshclzsrp-hmbaqwzqls (MIP) and/or volume rendering reformats were acquired of the central intracranial vasculature and neck separately. For radiation dose reduction, the following was used: automated exposure control, adjustment of mA and/or kV according to patient size. COMPARISON: [facility], MR, MR STROKE PROTOCOL, 08/13/2024, 16:36. [facility], CT, CT STROKE, 03/05/2025, 17:09. [facility], CT, CT HEAD/BRAIN WO CON, 08/08/2024, 19:53. FINDINGS: Image quality: Diagnostic. Cerebral CT Angiogram: Internal carotid arteries: No acute findings. Intracranial ICA are patent with no significant stenosis. No occlusion. No aneurysm. Anterior cerebral arteries: Unremarkable. No significant stenosis. No occlusion. No aneurysm. Middle cerebral arteries: Unremarkable. No significant stenosis. No occlusion. No aneurysm. Posterior cerebral arteries: origin of the right RENEWALS REPRESENTATIVE, variant. No significant stenosis. No occlusion. No aneurysm. Basilar artery: Unremarkable. No significant stenosis. No occlusion. No aneurysm. Vertebral arteries: Unremarkable as visualized. Dural venous sinuses: Unremarkable given phase of enhancement. Other: Arterial phase appearance of the brain parenchyma is unremarkable. Neck CT Angiogram: Internal carotid arteries: Medialization of the ICAs. Mild plaque at the right carotid bulb. No significant stenosis. No dissection or occlusion. Common carotid arteries: Unremarkable. No significant stenosis. No dissection or occlusion. External carotid arteries: Unremarkable. No occlusion. Vertebral arteries: Unremarkable. No significant stenosis. No dissection or occlusion. Aortic Arch and Mediastinum: Partially visualized aortic arch unremarkable without evidence of aneurysm. Origins of the great vessels unremarkable. Other: Arterial phase soft tissues of the neck and chest are unremarkable. Mucosal thickening in the right maxillary sinus. Moderate degenerative changes at the cervical spine. IMPRESSION: 1. No large vessel filling defect. 2. No critical stenosis in the neck. Any quantitative measurements of stenosis were performed using NASCET criteria. Dictated by: Chinedu Jain M.D. on 03/05/2025 at 17:34 Approved by: Chinedu Jain M.D. on 03/05/2025 at 17:43
--- NOTE | 2025-03-05 17:07 | DI.CT.S_ITS ---
PROCEDURE: CT STROKE INDICATIONS: Right side weakness TECHNIQUE: Noncontrast 4.5 mm thick angled axial sections acquired from the foramen magnum to the vertex, with coronal reformats. For radiation dose reduction, the following was used: automated exposure control, adjustment of mA and/or kV according to patient size. COMPARISON: [facility], CT, CT HEAD WITHOUT CONTRAST, 08/11/2024, 10:38. FINDINGS: Image quality: Diagnostic. CSF spaces: Basal cisterns are patent. No extra-axial fluid collections. Ventricles are normal in size and shape. Brain: No midline shift. No intracranial mass effect or hemorrhage. No area of hypodensity in a large vascular distribution to suggest acute infarction. Periventricular hypodensity consistent with chronic microvascular ischemic change. Age-related parenchymal loss. Skull and face: Calvarium and visualized facial bones are intact, without suspicious lesions. Sinuses: Visualized sinuses and mastoids are clear. IMPRESSION: No acute intracranial hemorrhage. Comment: Findings were conveyed to emergency department at 5:31 p.m. This study fulfills neurological imaging criteria for inclusion or exclusion of acute stroke therapies based on available published neurological imaging guidelines. Dictated by: Chinedu Jain M.D. on 03/05/2025 at 17:30 Approved by: Chinedu Jain M.D. on 03/05/2025 at 17:33
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
[2025-03-05 17:19] LABS: Add Manual Diff / Slide Review NO; Hematocrit 39.7 % (36-46); Hemoglobin 13.3 g/dL (12.0-16.0); Lymphocytes Absolute Auto 3200 /uL (1100-4500); Mean Corpuscular HGB Conc 33.5 % (30-36); Mean Corpuscular Hemoglobin 32.1 PG (26-34); Mean Corpuscular Volume 95.9 fL (80-100); Platelet Count 153 X10^3/uL (150-400)
[2025-03-05 17:22] LABS: INR 0.9 (0.9-1.3); Prothrombin Time 10.1 SECONDS (9.4-12.5)
[2025-03-05 17:24] LABS: PTT Partial Thromboplastin Tim 33 SECONDS (25.1-36.5)
[2025-03-05 17:27] LABS: Alanine Aminotransferase 28 IU/L (<35); Albumin 4.5 g/dL (3.5-5.0); Albumin Globulin Ratio 1.0 (1.0-2.8); Alkaline Phosphatase 324 U/L (38-126); Blood Urea Nitrogen 30 mg/dL (7-17); Calcium 9.2 mg/dL (8.4-10.2); Carbon Dioxide 16 mmol/L (22-32); Chloride 112 mmol/L (98-107); Creatine Kinase 108 U/L (30-135); Estimated Glomerular Filt Rate 40 mL/min (>60); Globulin 4.4 g/dL (1.7-4.1); Glucose 177 mg/dL (70-99); HEMOLYSIS 44 (0-50); Potassium 4.4 mmol/L (3.4-5.1); Sodium 141 mmol/L (137-145); Total Protein 8.9 g/dL (6.3-8.2)
[2025-03-05] MEDS: SODIUM CHLORIDE 0.9% 1,000 ML 1000 ML IV (17:32)
[2025-03-05 17:38] LABS: Troponin I < 0.012 ng/mL (0.01-0.034)
--- NOTE | 2025-03-05 18:37 | EKG_ITS ---
[address] [address] Test Date: 2025-03-05 Pat Name: Keila Frey Department: Room: 219 Gender: Female Director [employer]: : 1965 Requested By: Order Number: [id number] Reading MD: Montana Candelaria Measurements Intervals [place] Rate: 85 P: 49 [place]: 126 QRS: 1 QRSD: 72 T: 50 QT: 398 QTc: 473 Interpretive Statements Normal sinus rhythm Electronically Signed On 03-13-2025 13:56:36 PDT by Montana Candelaria
[2025-03-05 18:59] LABS: Appearance Urine UA CLEAR; Bilirubin Urine UA NEGATIVE (NEGATIVE); Color Urine UA YELLOW; Glucose Urine UA NEGATIVE (Negative); Ketones Urine UA NEGATIVE (NEGATIVE); Leukocyte Esterase Urine UA NEGATIVE (NEGATIVE); Nitrite Urine UA NEGATIVE (Negative); Occult Blood Urine UA NEGATIVE (Negative); Protein Urine UA NEGATIVE (Negative); Specific Gravity Urine UA <=1.005 (1.000-1.035); Urobilinogen Urine UA 0.2 E.U./dL (0.2)
[2025-03-05 19:00] LABS: pH Urine UA 5.5 (4.5-8.0)
--- NOTE | 2025-03-05 19:21 | PC.NURSE ---
patient states that her she always coughs after eating and drinking and that is normal for her. She does not say that her cough is new or worse than normal.
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
--- NOTE | 2025-03-05 19:30 | PC.NURSE ---
Pt had stroke in May and then again in Aug. Has had left sided lifting issues, gait issues, and pain. Last night around 10 developed numbness and couldn't move her right arm. she has a headache and her right neck vein was protruding. She also states she couldn't get out of bed due to not being able to move.
[2025-03-05 20:05] LABS: Cholesterol 276 mg/dL (140-199); HDL Cholesterol 89 mg/dL (40-60); Triglycerides 365 mg/dL (35-150)
[2025-03-05 20:34] LABS: Hemoglobin A1C% w Est Avg Glu 7.0 % (4.0-6.0)
[2025-03-05 21:05] LABS: Thyroid Stimulating Hormone 0.166 uIU/mL (0.47-4.68)
[2025-03-05] MEDS: DOCUSATE 100 MG CAPSULE PO (21:51)
[2025-03-05] MEDS: QUETIAPINE 25 MG TABLET 100 MG PO (21:53)
[2025-03-05] MEDS: AMITRIPTYLINE 25 MG TABLET PO (21:53)
[2025-03-05] MEDS: INSULIN GLARGINE 100 UNIT/ML 3ML PEN 30 UNIT SUBCUT (21:57)
[2025-03-05] MEDS: hydrALAZINE 20 MG/ML VIAL 5 MG IV (22:02)
[2025-03-05] MEDS: PRAZOSIN 1 MG CAPSULE 5 MG PO (22:02)
[2025-03-06] VITALS (8 sets, daily range): BP systolic 100–138; BP diastolic 37–57; PULSE 62–76; RESP 16–18; TEMP 36.2–36.6; O2SAT 98–100
[2025-03-06] MEDS: SODIUM CHLORIDE 0.9% 500 ML IV ×3 (00:15→02:10)
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
[2025-03-06] MEDS: ONDANSETRON 4 MG/2 ML INJ IV (00:19)
[2025-03-06] MEDS: MORPHINE 4 MG/ML INJ IV (01:14)
--- NOTE | 2025-03-06 05:46 | PC.NURSE ---
Patient admitted at 2035 from ED, transferred to bed with slideboard. A/O x 4, NIH 6. Oriented to room and call light, call light within reach. Medications given per order, rechecked BP after hydralazine - 76/48 (MAP 44). Reports nausea and headache. Dr. Whitaker placed order for 500cc bolus NS , requested to see the patient. After initial 500cc bolus, BP 102/38, MAP 59. Reports pain to right side 8/10. Given 1 x dose of morphine. After 3rd 500cc bolus, BP 107/40 MAP 66. Pt received total of 1500cc NS bolus
[2025-03-06] MEDS: INSULIN LISPRO 100 UNIT/ML 3ML VIAL SUBCUT ×4 (09:19→16:30)
[2025-03-06] MEDS: AMLODIPINE 5 MG TABLET 10 MG PO (09:20)
[2025-03-06] MEDS: ASPIRIN EC 81 MG TABLET PO (09:20)
[2025-03-06] MEDS: TORSEMIDE 10 MG TABLET 20 MG PO (09:22)
[2025-03-06] MEDS: DOCUSATE 100 MG CAPSULE PO ×2 (09:22→20:18)
[2025-03-06] MEDS: PANTOPRAZOLE DR 40 MG TABLET 80 MG PO (09:23)
[2025-03-06] MEDS: FAMOTIDINE 20 MG TABLET 40 MG PO (09:23)
[2025-03-06] MEDS: FERROUS SULFATE 325 MG TABLET PO (09:33)
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
--- NOTE | 2025-03-06 11:44 | DIET.CONS ---
Dietary Consultation Note Admission Date: 03/05/2025 19:23 Assessment: 60 y F admitted for possible stroke. Dietitian screened for MNA. Met with pt at bedside. Reports as of around 3 years ago, loss of appetite r/t gastroparesis. Forces self to eat, sometimes vomits afterwards. Lost 54 lb around 3 years ago. Diet recall consist of usual intakes of non fat italian yogurt, baked potato and cheese, protein drinks, fruit like watermelon, applesauce, oatmeal (2 cups), water and tea Reports stable BG recently, no hypoglycemic events. Ht: 149.86 cm Wt: 55 kg BMI: 24.5 UBW: 112-118 lb (50.0-53.6 kg) per pt Last BM: 03/05/25 (03/05/25 20:41) MNA: 6 Sim Score: 17 Diet: 03/06/25 Breakfast Carbohydrate Consistent Diet Diet Modifications: Carbohydrate level: Medium (3 CHO) Reflex DM orders: No Labs: RBC 4.14 X10^6/uL (4.0-5.2) 03/05/25 17:01 Hgb 13.3 g/dL (12.0-16.0) 03/05/25 17:01 Hct 39.7 % (36-46) 03/05/25 17:01 Creatinine 1.47 mg/dL (0.52-1.04) H 03/05/25 17:01 Hemoglobin A1c 7.0 % (4.0-6.0) H 03/05/25 17:01 Nutrition Diagnosis: Altered GI function r/t altered GI motility aeb gastroparesis Interventions: -Pt already aware that it is best to choose low-fat/low diet diet, reviewed handout, discussed can switch oatmeal for cream of rice/wheat for less fiber -Ensure plus (13 g pro) as needed over solids as needed EER: [id number] kcals (25-30 kcals/kg per BMI) 45 g protein (.8g/kg per CKD3b) Monitoring/Evaluations: PO intakes, BG Electronically Signed by: Bibiana Gruber 03/06/25 11:44 Clinical Dietitian [address] [id number]
[2025-03-06 12:16] LABS: Alanine Aminotransferase 20 IU/L (<35); Albumin 3.0 g/dL (3.5-5.0); Albumin Globulin Ratio 0.9 (1.0-2.8); Alkaline Phosphatase 208 U/L (38-126); Blood Urea Nitrogen 25 mg/dL (7-17); Calcium 8.0 mg/dL (8.4-10.2); Carbon Dioxide 17 mmol/L (22-32); Chloride 117 mmol/L (98-107); Estimated Glomerular Filt Rate 49 mL/min (>60); Globulin 3.2 g/dL (1.7-4.1); Glucose 177 mg/dL (70-99); HEMOLYSIS 23 (0-50); Magnesium 1.9 mg/dL (1.6-2.3); Potassium 4.3 mmol/L (3.4-5.1); Sodium 138 mmol/L (137-145); Total Protein 6.2 g/dL (6.3-8.2)
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
--- NOTE | 2025-03-06 13:05 | DI.ECHO.S_ITS ---
[facility]---------+ [facility] : : [id number] [place] : : [id number] : : Phone: [phone] Echocardiogram Report + + :Name: SELVIN KRAUSE Study Date: 03/06/2025 Height: 57 in : :[facility] ReadingLocation: Weight: 117 lb : : Gender: Female BSA: 1.4 m2 : :: 1965 Age: 60 yrs BP: 100/37 mmHg: :Reason For Study: CVA : :Ordering Physician: MADELINE, : :DEDE Performed By: Ward Medina : :Referring: DEDE CORREA : + + Interpretation Summary The study quality was technically difficult. The ejection fraction is estimated to be 60-65%. Diastolic function is indeterminate. The right ventricle is not well visualized. No obvious valvular abnormalities however visualization is somewhat compromised. Pulmonary artery pressures cannot be estimated because of the lack of a measurable TR jet velocity. Procedure: A two-dimensional transthoracic echocardiogram with color flow and Doppler was performed. The study quality was technically difficult. Comparison is made with the echocardiogram of 04/06/2015. The patient was in normal sinus rhythm during the exam. Left Ventricle: The left ventricle is normal in size. There is normal left ventricular wall thickness. There is no ventricular septal defect visualized. The ejection fraction is estimated to be 60-65%. Regional wall motion abnormalities cannot be excluded due to limited visualization. Diastolic function is indeterminate. Right Ventricle: The right ventricle is not well visualized. Atria: The left atrial size is normal. Right atrium not well visualized. There is no Doppler evidence for an interatrial shunt. Mitral Valve: There is moderate mitral annular calcification. The mitral valve leaflets appear mildly thickened. The mitral valve leaflets are mildly calcified. There is no mitral regurgitation noted. Aortic Valve: The aortic valve is trileaflet. The aortic valve is mildly calcified. The aortic valve opens well. There is no hemodynamically significant valvular aortic stenosis. No aortic regurgitation is present. Tricuspid Valve: The tricuspid valve is not well visualized, but is grossly normal. No tricuspid regurgitation. Pulmonary artery pressures cannot be estimated because of the lack of a measurable TR jet velocity. Pulmonic Valve: The pulmonic valve is not well visualized. There is no pulmonic valvular regurgitation. Great Vessels: The aortic root is normal size. The dimensions of the ascending aorta are normal. The pulmonary artery is not well visualized, but is probably normal size. The inferior vena cava was not visualized. Pericardium/ Pleura There is no pericardial effusion. MMode/2D Measurements & Calculations LVIDd: 4.2 cm LVOT diam: 1.8 cm LVIDs: 2.6 cm Ao root diam: 2.4 cm FS: 38.6 % asc Aorta Diam: 3.0 cm EPSS: 0.35 cm Ao Arch Diam (Prox Trans): 1.5 cm IVSd: 0.87 cm LVPWd: 0.90 cm LV ding. diameter/BSA (cm/m^2): 2.9 LV sys. diameter/BSA (cm/m^2): 1.8 LA A2 area: 15.5 cm2 IVC diam: 1.3 cm LA A4 area: 16.5 cm2 LA length (vol): 5.1 cm LA vol: 42.3 ml LA vol index: 29.5 ml/m2 Doppler Measurements & Calculations Ao V2 max: 158.4 cm/sec LVOT Max Jayden: 79.3 cm/sec Ao V2 mean: 121.6 cm/sec LV V1 max P.5 mmHg Ao max P.0 mmHg LV V1 VTI: 20.3 cm Ao mean P.3 mmHg WALESKA(I,D): 1.3 cm2 Ao V2 VTI: 41.2 cm WALESKA(V,D): 1.3 cm2 sev ratio: 0.49 WALESKA indexed to BSA (cm^2/m^2): 0.91 MV E max jayden: 73.0 cm/sec PA V2 max: 110.2 cm/sec MV A max ajyden: 66.3 cm/sec PA V2 mean: 77.5 cm/sec MV E/A: 1.1 PA mean P.7 mmHg Med Peak E' Jayden: 4.5 cm/sec PA pr(Accel): 41.3 mmHg E/E' med: 16.4 Lat Peak E' Jayden: 6.0 cm/sec E/E' lat: 12.1 E/e' average: 14.2 MV dec time: 0.22 sec SV(LVOT): 53.7 ml Reading Physician:04:57 PM
--- NOTE | 2025-03-06 14:00 | PT-IP ANOTE ---
checked on pt x 2. pt initially was eating breakfast. checked back and pt and started eval but BODY JOINER came in and need to see pt first. will f/u this afternoon.
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
[2025-03-06] MEDS: OXYCODONE IR 5 MG TABLET PO ×2 (14:30→20:17)
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
--- NOTE | 2025-03-06 18:17 | PC.NURSE ---
Pt neuro assesment unchaged thorughout shift. L>R in bilateral extremities with reduced sensation. complaining of R sided abd pain and headache, PRN oxy started. Pt OOB with PT and up in chair. Went for MRI brain.
[2025-03-06] MEDS: TRAZODONE 50 MG TABLET PO (20:17)
[2025-03-06] MEDS: PRAZOSIN 1 MG CAPSULE 5 MG PO (20:17)
[2025-03-06] MEDS: QUETIAPINE 25 MG TABLET 100 MG PO (20:17)
[2025-03-06] MEDS: AMITRIPTYLINE 25 MG TABLET PO (20:17)
[2025-03-06] MEDS: DICYCLOMINE 10 MG CAPSULE 20 MG PO (20:18)
[2025-03-06] MEDS: TIZANIDINE 4 MG TABLET PO (20:22)
[2025-03-06] MEDS: INSULIN GLARGINE 100 UNIT/ML 3ML PEN 20 UNIT SUBCUT (21:22)
[2025-03-07] VITALS (48 sets, daily range): BP systolic 73–179; BP diastolic 24–75; PULSE 63–85; RESP 9–47; TEMP 36–36.5; O2SAT 94–100
[2025-03-07] MEDS: NOREPINEPHRINE BITARTRATE/D5W 4 MG/250 ML PLAST..BAG 20.625 MG IV (01:16)
[2025-03-07] MEDS: SODIUM CHLORIDE 0.9% 500 ML 1000 ML IV (01:17)
--- NOTE | 2025-03-07 06:47 | PC.NURSE ---
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 MD approved and gave verbal to repeat 500 NS bolus PRN if blood pressure is not WNL, Patient had similar incident night prior requiring 1500mL prior to blood pressure returning to WNL. RN reviewed patient meds and informed MD that patient takes 5mg Prazosin for PTSD nightmares, and MD D/C prazosin and other BP medications. Patients BP did increase but did map did not improve, MD notified after completion of second bolus. MD placed an order for 1 liter NS Bolus and Levophed, Charge aware and DIRECTOR CRAFT CENTER aware and advised while this RN pulled medication and proceeded to administer, Patient was already on telemetry. DIRECTOR CRAFT CENTER checked on this RN q10 minutes, This RN stayed bedside with Patient while administer Levophed. tank pumper panelboard got orders to transfer Patient to ICU. put orders. Patient transferred to ICU at 330. 1800mL bolus given of NS prior to transfer and mcdermott placed to track I/O.
[2025-03-07 08:08] LABS: Alanine Aminotransferase 17 IU/L (<35); Albumin 3.0 g/dL (3.5-5.0); Albumin Globulin Ratio 1.0 (1.0-2.8); Alkaline Phosphatase 227 U/L (38-126); Blood Urea Nitrogen 26 mg/dL (7-17); Calcium 8.0 mg/dL (8.4-10.2); Carbon Dioxide 16 mmol/L (22-32); Chloride 116 mmol/L (98-107); Estimated Glomerular Filt Rate 37 mL/min (>60); Globulin 3.0 g/dL (1.7-4.1); Glucose 193 mg/dL (70-99); HEMOLYSIS < 15 (0-50); Magnesium 1.7 mg/dL (1.6-2.3); Potassium 4.4 mmol/L (3.4-5.1); Sodium 138 mmol/L (137-145); Total Protein 6.0 g/dL (6.3-8.2)
--- NOTE | 2025-03-07 08:13 | PC.NURSE ---
Pt transferred from Acute Care with order to titrate levophed to MAP of 65. Late entry MAR titration of Levophed 0350 increased to 0.12 (BP 94/54 MAP 63) 0410 Inc to 0,
[2025-03-07 08:19] LABS: Troponin I 0.013 ng/mL (0.01-0.034)
[2025-03-07 08:43] LABS: Procalcitonin 0.156 ng/mL (<0.5)
[2025-03-07 09:04] LABS: Add Manual Diff / Slide Review NO; Hematocrit 30.9 % (36-46); Hemoglobin 10.4 g/dL (12.0-16.0); Lymphocytes Absolute Auto 2400 /uL (1100-4500); Mean Corpuscular HGB Conc 33.7 % (30-36); Mean Corpuscular Hemoglobin 32.3 PG (26-34); Mean Corpuscular Volume 96.0 fL (80-100); Platelet Count 88 X10^3/uL (150-400)
[2025-03-07 09:19] LABS: Lactate (Lactic Acid) 1.0 mmol/L (0.7-2.1)
[2025-03-07] MEDS: PANTOPRAZOLE DR 40 MG TABLET 80 MG PO (10:03)
[2025-03-07] MEDS: DOCUSATE 100 MG CAPSULE PO ×2 (10:04→21:08)
[2025-03-07] MEDS: FAMOTIDINE 20 MG TABLET PO (10:04)
[2025-03-07] MEDS: ASPIRIN EC 81 MG TABLET PO (10:04)
[2025-03-07] MEDS: NOREPINEPHRINE BITARTRATE/D5W 4 MG/250 ML PLAST..BAG 14.438 MG IV (10:05)
[2025-03-07] MEDS: INSULIN LISPRO 100 UNIT/ML 3ML VIAL SUBCUT ×3 (10:06→12:45)
[2025-03-07] MEDS: SODIUM CHLORIDE 0.9% 500 ML IV (10:56)
[2025-03-07] MEDS: SODIUM CHLORIDE 0.9% 1,000 ML 100 ML IV ×2 (10:57→22:36)
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
--- NOTE | 2025-03-07 13:06 | PT-IP ANOTE ---
Per hospitalist during multidisciplinary meeting: Hold PT for today due to pt's hypotension.
--- NOTE | 2025-03-07 15:57 | CM.DPNOTE ---
DCP Continued: Referrals sent to [facility], [facility], and [facility] SNF per pt preferences; sent via secure email. Plan: Pending SNF acceptance. CM Team will continue to follow for coordination of discharge plans. RICHY Green
--- NOTE | 2025-03-07 16:13 | CM.DPNOTE ---
BRAD Cont Met w/patient this afternoon to review discharge recommendation for SNF; patient agrees and has no SNF preference. Patient reports she will return home w/her son when she leaves SNF. Patient has been in contact with [employer] [facility] to explore any resources she qualifies for. Explained to patient that with her [employer] coverage, [place] [facility]; [facility], [facility] and [facility] are options to try. Patient okay with referrals to all these facilities. Hospital exempt PASRR completed, needs signature. Patient with PMH of MG, ADHD, MDD and PTSD, on seroquel and amitriptyline at home. SNF referrals being sent. SW team following closely for coordination. MONIE
[2025-03-07] MEDS: OXYCODONE IR 5 MG TABLET PO (18:27)
[2025-03-07] MEDS: ATORVASTATIN 20 MG TABLET 40 MG PO (21:07)
[2025-03-07] MEDS: QUETIAPINE 25 MG TABLET 100 MG PO (21:08)
[2025-03-07] MEDS: AMITRIPTYLINE 25 MG TABLET PO (21:08)
[2025-03-07] MEDS: TRAZODONE 50 MG TABLET PO (21:14)
[2025-03-07] MEDS: TIZANIDINE 4 MG TABLET PO (21:14)
[2025-03-07] MEDS: INSULIN GLARGINE 100 UNIT/ML 3ML PEN 20 UNIT SUBCUT (22:10)
[2025-03-08] VITALS (69 sets, daily range): BP systolic 72–202; BP diastolic 34–100; PULSE 57–89; RESP 11–59; O2SAT 93–97; BMI 29.3
[2025-03-08] MEDS: SODIUM CHLORIDE 0.9% 500 ML 1000 ML IV (03:25)
[2025-03-08 07:19] LABS: Add Manual Diff / Slide Review NO; Hematocrit 30.3 % (36-46); Hemoglobin 10.0 g/dL (12.0-16.0); Lymphocytes Absolute Auto 2000 /uL (1100-4500); Mean Corpuscular HGB Conc 33.1 % (30-36); Mean Corpuscular Hemoglobin 32.0 PG (26-34); Mean Corpuscular Volume 96.4 fL (80-100); Platelet Count 96 X10^3/uL (150-400)
[2025-03-08 08:05] LABS: Alanine Aminotransferase 14 IU/L (<35); Albumin 2.6 g/dL (3.5-5.0); Albumin Globulin Ratio 1.0 (1.0-2.8); Alkaline Phosphatase 209 U/L (38-126); Blood Urea Nitrogen 26 mg/dL (7-17); Calcium 8.0 mg/dL (8.4-10.2); Carbon Dioxide 16 mmol/L (22-32); Chloride 119 mmol/L (98-107); Estimated Glomerular Filt Rate 42 mL/min (>60); Globulin 2.6 g/dL (1.7-4.1); Glucose 49 mg/dL (70-99); HEMOLYSIS < 15 (0-50); Magnesium 1.7 mg/dL (1.6-2.3); Potassium 4.2 mmol/L (3.4-5.1); Sodium 140 mmol/L (137-145); Total Protein 5.2 g/dL (6.3-8.2)
[2025-03-08 08:28] LABS: Troponin I 0.014 ng/mL (0.01-0.034)
[2025-03-08 08:46] LABS: Cortisol AM (Before 10AM) 13.7 ug/dL (4.46-22.7)
[2025-03-08] MEDS: FAMOTIDINE 20 MG TABLET PO (08:50)
[2025-03-08] MEDS: TORSEMIDE 10 MG TABLET 20 MG PO (08:50)
[2025-03-08] MEDS: ASPIRIN EC 81 MG TABLET PO (08:50)
[2025-03-08] MEDS: PANTOPRAZOLE DR 40 MG TABLET 80 MG PO (08:50)
[2025-03-08] MEDS: FERROUS SULFATE 325 MG TABLET PO (08:50)
[2025-03-08] MEDS: DOCUSATE 100 MG CAPSULE PO ×2 (08:50→21:31)
[2025-03-08] MEDS: ENOXAPARIN 40 MG/0.4 ML SYRINGE SUBCUT (08:50)
[2025-03-08] MEDS: SODIUM CHLORIDE 0.9% 1,000 ML 100 ML IV (08:53)
--- NOTE | 2025-03-08 09:13 | CM.DPNOTE ---
Addendum entered by KATELYN Yanes 03/08/25 15:11: per Laurie from [facility], denying referral due to hx of working with her and spouse. per PT, pt had told her that she has also been to [facility] in past. DRUM SANDER SETTER left messages with [facility] and [facility], no response. will f/u Sunday on if able to accept referral or not. Will continue to follow closely for DCP coordination SL Original Note: DCP note DRUM SANDER SETTER reviewed EMR per chart review, pt moved to ICU for some hypotension. per chart review that seems to have improved today. DRUM SANDER SETTER emailed [facility] to connect on if they can accept/auth progress. unlikely to get ins auth today due to it being a Sunday. unsure when will be medically stable? PASRR previously completed, needs signature. P: dc to SNF pending acceptance/auth/medical stability. CM Team will continue to follow closely for DCP coordination KATELYN Yanes
--- NOTE | 2025-03-08 09:37 | PT.IPTN ---
Current Diagnoses Transient cerebral ischemic attack, unspecified (03/05/25) Physical Therapy Treatment Note M2 PT-IP Current Condition Start: 03/06/25 16:29 Freq: NEEDED Status: Active Protocol: Document 03/06/25 14:15 AB (Rec: 03/06/25 16:48 AB [id number]) Physical Therapy Current Condition Current Condition Evaluation Date 03/06/25 Treatment Diagnosis brain TIA; difficulty in walking Onset Date 03/05/25 M3 PT-IP Subjective Start: 03/06/25 16:29 Freq: NEEDED Status: Active Protocol: Document 03/08/25 09:06 MB (Rec: 03/08/25 09:36 MB Desktop) Subjective Physical Therapy Visit Type Type Treatment Note Visit Start Time 09:06 Visit Stop Time 09:29 Number of SUPERINTENDENT METER TESTS Visits 0 Physical Therapy Visit Comments Patient Comments Oh good, I need it. When PT asks pt if she is agreeable to PT. Therapy Pain Assessment Location Generalized Scale Used Not rated, c/o all over pain and right sided pain M4 PT-IP Mobility and Gait Start: 03/06/25 16:29 Freq: NEEDED Status: Active Protocol: Document 03/08/25 09:06 MB (Rec: 03/08/25 09:36 MB Desktop) PT-Bed Mobility Assessment Supine to Sit Supine to Sit Contact Guard Assistance,1 Person Assistance,Head of Bed Elevated,Bedrails Sit to Supine Sit to Supine Contact Guard Assistance,1 Person Assistance,Head of Bed Elevated,Bedrails Scooting Scooting to Edge of Contact Guard Assistance Bed PT-Transfer Assessment Sit to and From Stand Sit to and from Moderate Assistance,2 Person Assistance,Use of Upper Stand Extremities Equipment Transfer Assistive Gait Belt,Front Wheeled Walker Device Orthotic/Prosthetic No Devices or Brace: Transfers Transfer Destination Chair Transfer Technique Stepping Transfer Ability Level of Assist Moderate Assistance,2 Person Assistance,Use of Upper Extremities Comments Mobility Comments HOB increased, encouragement and use of HOB rail to her right and bottom of bed rail on her left for bed mobility. Increased time required. BP in LUE: hook lying 141/76; sitting EOB 128/100, 73. Pt presents with some SHEPHERD. Right side steps with pediatric RW to the chair today Gait Assessment Gait Gait Assistance Moderate Assistance,2 Person Assist Required: Distance (Feet) 1 Assistive Devices Assistive Device Gait Belt,Front Wheeled Walker Gait Deviations General Gait Pattern Decreased Stride Length,Decreased Feet Clearance Factors Limiting Gait Function Factors Limiting Decreased Activity Tolerance,Decreased Sensation, Gait Function Decreased Strength,Difficulty Following Directions, Limited Range of Motion,Pain,Poor Balance,Poor Safety Awareness Comments Gait Comments Pt with high startle reflex and screams when PT knocks on door and greets pt and when PT lightly touches right hand for her to put it down to use for transfers, cues to hold onto walker for gait PT-Balance Assessment Sitting Balance and Reactions Static Sitting Fair Balance Ability Dynamic Sitting Fair Balance Ability Standing Balance and Reactions Static Standing Fair Balance Ability Dynamic Standing Fair Balance Ability M5 PT-IP Objective Assessments Start: 03/06/25 16:29 Freq: NEEDED Status: Active Protocol: Document 03/08/25 09:06 MB (Rec: 03/08/25 09:36 MB Desktop) Muscle Tone Comments Muscle Tone Comments Increased tension B PFs and limited active DF sitting EOB M6 PT-IP Treatment Start: 03/06/25 16:29 Freq: NEEDED Status: Active Protocol: Document 03/06/25 14:15 AB (Rec: 03/06/25 16:48 AB [id number]) Physical Therapy Treatment Education Education Provided Safety M7 PT-IP Assessment and Plan Start: 03/06/25 16:29 Freq: NEEDED Status: Active Protocol: Document 03/08/25 09:06 MB (Rec: 03/08/25 09:36 MB Desktop) PT Summary Assessment and Plan Potential Rehabilitation Fair Potential Status of Condition Evolving at Evaluation Summary Impairments Pain,ROM,Strength,Balance,Coordination,Sensation,Tone, Cognition,Bed Mobility,Transfers,Gait,Activity Tolerance Progress Towards Slow Progress due to Pain,Slow Progress due to Activity Goals Tolerance,Slow Progress - Other Assessment Summary Pt presents with a high startle reflex when PT knocks on the glass and greets pt and when PT touches her right hand today. She screams out. She is pleasant and agreeable to PT and requires increased time and cues, HOB increased and use of rails for bed mobility. Pt reports she is 4'9 and so bed, distance from bed to floor and chair are all too big for her. PT leaves pediatric RW in the room. Recommend SNF at d/c. Of note , her systolic BP drops and her diastolic BP increases with mobility today. Goals Bed Mobility Goal Minimal Assistance Transfer Goal Minimal Assistance,Front Wheeled Walker Gait Goal Minimal Assistance,Front Wheel Walker Gait Distance 50 Days to Meet Goals 10 Frequency of Treatment Frequency Of Once a Day Treatment Treatment Plan Physical Therapy Bed Mobility Training,Transfer Training,Gait Training, Treatment Plan Therapeutic Exercise,Balance Retraining,Discharge Planning,Hot or Cold Pack,Neuromuscular Re-ed, Coordination Retraining Precautions Other Precautions Falls, lines, easily startled Recommendations To Nursing Amount of Assist 2 Person Assist Needed Discharge Recommendations PT Discharge SNF Rehab Recommendations Transportation Needs Wheelchair/Cabulance at Discharge - PT assist x2
--- NOTE | 2025-03-08 09:41 | PC.NURSE ---
[facility] [employer] [facility] Note: Clay catheter removed at 09:35 per nursing delegation.
[2025-03-08] MEDS: INSULIN LISPRO 100 UNIT/ML 3ML VIAL SUBCUT ×5 (12:14→21:33)
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
[2025-03-08] MEDS: TIZANIDINE 4 MG TABLET PO (15:24)
[2025-03-08] MEDS: OXYCODONE IR 5 MG TABLET PO (21:31)
[2025-03-08] MEDS: QUETIAPINE 25 MG TABLET 100 MG PO (21:31)
[2025-03-08] MEDS: Vortioxetine [Trintellix] 20 mg tablet 20 EACH PO (21:31)
[2025-03-08] MEDS: MILNACIPRAN 12.5 MG 12.5 EACH PO (21:31)
[2025-03-08] MEDS: TRAZODONE 50 MG TABLET PO (21:31)
[2025-03-08] MEDS: INSULIN GLARGINE 100 UNIT/ML 3ML PEN 16 UNIT SUBCUT (21:32)
[2025-03-08] MEDS: AMITRIPTYLINE 25 MG TABLET PO (21:32)
[2025-03-08] MEDS: ATORVASTATIN 20 MG TABLET 40 MG PO (21:32)
[2025-03-09] VITALS (69 sets, daily range): BP systolic 65–207; BP diastolic 30–87; PULSE 53–85; RESP 11–57; TEMP 36.2; O2SAT 93–100
[2025-03-09] MEDS: TIZANIDINE 4 MG TABLET PO (00:22)
[2025-03-09] MEDS: SODIUM CHLORIDE 0.9% 500 ML 1000 ML IV (04:20)
[2025-03-09] MEDS: NOREPINEPHRINE BITARTRATE/D5W 4 MG/250 ML PLAST..BAG 10.313 MG IV (05:05)
--- NOTE | 2025-03-09 06:18 | PC.NURSE ---
Automotive Finance Manager Note-Patient A/Ox3, VSS at HS. At 0415 patient sleeping hard, BP 60-70s/30-40s MAP 40s, patient was rousable, Caitie with same weakness as begining of shift. NS bolus started per prn order. At 0457, 2nd bolus started, NOC Hospitalist notified, Levophed restarted at 0.05mcg/kg/min. BP went up to 159/68, Levophed titrated down-see Emar.
[2025-03-09 07:11] LABS: Add Manual Diff / Slide Review NO; Hematocrit 28.8 % (36-46); Hemoglobin 9.9 g/dL (12.0-16.0); Lymphocytes Absolute Auto 2700 /uL (1100-4500); Mean Corpuscular HGB Conc 34.4 % (30-36); Mean Corpuscular Hemoglobin 32.8 PG (26-34); Mean Corpuscular Volume 95.4 fL (80-100); Platelet Count 93 X10^3/uL (150-400)
[2025-03-09 07:23] LABS: Blood Urea Nitrogen 34 mg/dL (7-17); Calcium 8.1 mg/dL (8.4-10.2); Carbon Dioxide 20 mmol/L (22-32); Chloride 114 mmol/L (98-107); Estimated Glomerular Filt Rate 37 mL/min (>60); Glucose 94 mg/dL (70-99); HEMOLYSIS < 15 (0-50); Potassium 3.8 mmol/L (3.4-5.1); Sodium 140 mmol/L (137-145)
[2025-03-09] MEDS: OXYCODONE IR 5 MG TABLET PO ×2 (08:50→21:00)
[2025-03-09] MEDS: FAMOTIDINE 20 MG TABLET PO (08:51)
[2025-03-09] MEDS: ASPIRIN EC 81 MG TABLET PO (08:51)
[2025-03-09] MEDS: MILNACIPRAN 12.5 MG 12.5 EACH PO ×2 (08:51→20:49)
[2025-03-09] MEDS: PANTOPRAZOLE DR 40 MG TABLET 80 MG PO (08:51)
[2025-03-09] MEDS: DOCUSATE 100 MG CAPSULE PO ×2 (08:51→20:49)
[2025-03-09] MEDS: INSULIN LISPRO 100 UNIT/ML 3ML VIAL SUBCUT ×4 (08:52→17:55)
[2025-03-09] MEDS: ENOXAPARIN 40 MG/0.4 ML SYRINGE SUBCUT (09:53)
--- NOTE | 2025-03-09 11:06 | PT.IPTN ---
Current Diagnoses Transient cerebral ischemic attack, unspecified (03/05/25) Physical Therapy Treatment Note M2 PT-IP Current Condition Start: 03/06/25 16:29 Freq: NEEDED Status: Active Protocol: Document 03/06/25 14:15 AB (Rec: 03/06/25 16:48 AB [id number]) Physical Therapy Current Condition Current Condition Evaluation Date 03/06/25 Treatment Diagnosis brain TIA; difficulty in walking Onset Date 03/05/25 M3 PT-IP Subjective Start: 03/06/25 16:29 Freq: NEEDED Status: Active Protocol: Document 03/09/25 10:37 MB (Rec: 03/09/25 11:05 MB Desktop) Subjective Physical Therapy Visit Type Type Treatment Note Visit Start Time 10:37 Visit Stop Time 11:00 Number of MANAGER TRADE MARKETING Visits 0 Physical Therapy Visit Comments Patient Comments PT clears with nsg and pt is agreeable to therapy. Therapy Pain Assessment Pain When Pain Assessed At Rest Pain Present Pain Present Pain Reported Location Generalized Scale Used Not rated, c/o small migraine and right-sided pain M4 PT-IP Mobility and Gait Start: 03/06/25 16:29 Freq: NEEDED Status: Active Protocol: Document 03/09/25 10:37 MB (Rec: 03/09/25 11:05 MB Desktop) PT-Bed Mobility Assessment Supine to Sit Supine to Sit Contact Guard Assistance,1 Person Assistance,Head of Bed Elevated,Bedrails Scooting Scooting to Edge of Contact Guard Assistance Bed PT-Transfer Assessment Sit to and From Stand Sit to and from Moderate Assistance,2 Person Assistance,Use of Upper Stand Extremities Equipment Transfer Assistive Gait Belt,Front Wheeled Walker Device Orthotic/Prosthetic No Devices or Brace: Transfers Transfer Destination Chair Transfer Technique Stepping Transfer Ability Level of Assist Moderate Assistance,2 Person Assistance,Use of Upper Extremities Comments Mobility Comments HR 122-135 BPM with mobility Pt con't to keep arms up and not using hands when initiating movement and PT con't to ed pt that she must try to use both hands on bedrail/arm rest on chair for transfers and on RW for stepping. Pt with ataxic-type movement and imbalance in trunk with transfers and standing and she does not have much self or safety awareness as far as fall risk posteriorly when she does not use hands. Posterior lean with standing and stepping. Side stepping x1 and forward and backward stepping x1 Gait Assessment Gait Gait Assistance Moderate Assistance,2 Person Assist Required: Distance (Feet) 3 Assistive Devices Assistive Device Gait Belt,Front Wheeled Walker Gait Deviations General Gait Pattern Ataxic,Decreased Stride Length,Decreased Feet Clearance ,Wide Based Gait Factors Limiting Gait Function Factors Limiting Decreased Activity Tolerance,Decreased Sensation, Gait Function Decreased Strength,Difficulty Following Directions, Limited Range of Motion,Pain,Poor Balance,Poor Safety Awareness Comments Gait Comments Pt's movement is ataxic and mildly chorea-like this date with increased time up on feet PT-Balance Assessment Sitting Balance and Reactions Static Sitting Fair Balance Ability Dynamic Sitting Fair Balance Ability Standing Balance and Reactions Static Standing Poor Balance Ability Dynamic Standing Poor Balance Ability M5 PT-IP Objective Assessments Start: 03/06/25 16:29 Freq: NEEDED Status: Active Protocol: Document 03/08/25 09:06 MB (Rec: 03/08/25 09:36 MB Desktop) Muscle Tone Comments Muscle Tone Comments Increased tension B PFs and limited active DF sitting EOB M6 PT-IP Treatment Start: 03/06/25 16:29 Freq: NEEDED Status: Active Protocol: Document 03/06/25 14:15 AB (Rec: 03/06/25 16:48 AB [id number]) Physical Therapy Treatment Education Education Provided Safety M7 PT-IP Assessment and Plan Start: 03/06/25 16:29 Freq: NEEDED Status: Active Protocol: Document 03/09/25 10:37 MB (Rec: 03/09/25 11:05 MB Desktop) PT Summary Assessment and Plan Potential Rehabilitation Fair Potential Status of Condition Evolving at Evaluation Summary Impairments Pain,ROM,Strength,Balance,Coordination,Sensation,Tone, Cognition,Bed Mobility,Transfers,Gait,Activity Tolerance Progress Towards Slow Progress due to Pain,Slow Progress due to Activity Goals Tolerance,Slow Progress - Other Assessment Summary Pt con't with poor safety awareness, not using hands with STS until cued. Her movement is ataxic in nature and she has some chorea-like movements. Pt will benefit from SNF at d/c. She is at high risk for falls. Goals Bed Mobility Goal Minimal Assistance Transfer Goal Minimal Assistance,Front Wheeled Walker Gait Goal Minimal Assistance,Front Wheel Walker Gait Distance 50 Days to Meet Goals 10 Frequency of Treatment Frequency Of Once a Day Treatment Treatment Plan Physical Therapy Bed Mobility Training,Transfer Training,Gait Training, Treatment Plan Therapeutic Exercise,Balance Retraining,Discharge Planning,Hot or Cold Pack,Neuromuscular Re-ed, Coordination Retraining Precautions Other Precautions Falls, lines, easily startled Recommendations To Nursing Amount of Assist 2 Person Assist Needed Discharge Recommendations PT Discharge SNF Rehab Recommendations Transportation Needs Wheelchair/Cabulance at Discharge - PT assist x2
--- NOTE | 2025-03-09 12:56 | OT.IP.TRT ---
Current Diagnoses Transient cerebral ischemic attack, unspecified (03/05/25) Occupational Therapy Treatment Note M2 OT-IP Current Condition Start: 03/06/25 14:49 Freq: Status: Active Protocol: Document 03/06/25 08:50 CCC (Rec: 03/06/25 15:17 CCC Desktop) Occupational Therapy Current Condition Current Condition Evaluation Date 03/06/25 Treatment Diagnosis TIA Diagnosis Onset Date 03/05/25 M3 OT- IP Subjective and Pain Start: 03/06/25 14:49 Freq: Status: Active Protocol: Document 03/09/25 12:27 ERASMO (Rec: 03/09/25 12:56 [facility] Desktop) OT- Subjective Occupational Therapy Visit Type Type Treatment Note Visit Start Time 10:37 Visit Stop Time 11:18 Occupational Therapy Visit Comments Patient Comments Pt agreed to participate in OT. Patient/Caregiver TO get better. Goals OT Pain Assessment Pain When Pain Assessed At Rest Pain Present Pain Present Pain Reported Location GRECO Scale Used not rated, c/o mild migrane M4 OT- IP ADL's Start: 03/06/25 14:49 Freq: Status: Active Protocol: Document 03/09/25 12:27 ERASMO (Rec: 03/09/25 12:56 [email or web address] Desktop) OT [id number] Comments OT Self-Feeding not observed Comments OT ADL-Grooming General Evaluation Grooming Ability Standby Assistance,Minimal Assistance Comments OT Grooming Comments pt performs hand washing and face washing on set up while sitting up in chair. Pt needs HAILEE for completeness of hand hygiene due to IV placement. OT ADL-Oral Care General Eval Oral Care Ability Standby Assistance Comments Oral Care Comments pt performs all aspects of oral hygiene while seated in chair on set up of items. OT ADL-Dressing General Eval Lower Body Dressing Independent,Minimal Assistance,Maximum Assistance,Total Ability Assistance Areas Needing Underpants/Brief,Socks Assistance Assistive Devices Dressing Assistive Cut Off Saw Operator,Sock Aid Devices Comments OT Dressing Comments Pt reports using a sock aid at home. Pt dons ankle sock while reclined in bed using figure 4 position with I for L and total A for R. Pt then used sock aid to don long socks on top of ankle socks. She donned L with mod I and R with min A. Once sitting up in chair, OT educated pt on use of lining cutter to doff and don brief. Pt uses the lining cutter to start her brief on B LEs, she pulls them up her thighs before standing. In standing, pt is able to pull them up over her hips with min A, however, pt leans significantly posteriorly and would not be able to maintain upright balance without therapists holding onto her. Pt demonstrates impaired safety awareness. OT ADL-Toileting Comments OT Toileting not observed Comments OT ADL-Bathing Comments OT Bathing Comments not observed M5 OT- IP IADL's Start: 03/06/25 14:49 Freq: Status: Active Protocol: Document 03/06/25 08:50 [facility] (Rec: 03/06/25 15:17 [facility] Desktop) OT-Instrumental Activities of Daily Living Home Safety Awareness Awareness of Need Good Awareness for Assistance at Home Medication Management Medication Pt states does her own. Management Comments Meal Preparation Meal Preparation Caregiver Provides Assist Head Machine Feeder Head Machine Feeder Caregiver Provides Assist Driving Driving Caregiver Provides Assist M6 OT- IP Functional Cognition Start: 03/06/25 14:49 Freq: Status: Active Protocol: Document 03/09/25 12:27 [email or web address] (Rec: 03/09/25 12:56 [facility] Desktop) Cognitive Factors Limiting Selfcare Function Cognitive Ability Level of Alertness Alert Patient Orientation Name,Age,Birthday,Place,Situation Attention Span Capable of Focused Attention,Capable of Sustained Ability Attention Ability to Follow Able to Follow One Step Commands Commands Safety Awareness Underestimates Need for Assistance Cognitive Tests SLUMS Pt is unable to answer the math related question and can recall 3 of 5 items in delayed recall. Examiner gave credit for accurate placement of clock numbers, although they are somewhat closer to the center of the ho-chunk, as I believe placement is based on decreased UE ROM and not cognition. Overall pt scored 22/30 which indicates mild neurocognitive disorder. Cognitive Comments Cognitive Assessment Pt demonstrates poor safety awareness with hand Comments placement when using the walker. Despite significant posterior lean that requires therapist to maintain her upright, pt does not reach for the walker to steady herself. Pt let go of the walker with both UEs when pulling up brief despite her significant posterior lean and vcs to reach for her walker. OT- Vision and Hearing OT- Hearing Assessment OT- Hearing WFL Assessment OT- Vision Assessment Visual Acuity Glasses For Reading Visual Attentiveness WFL Occular Pursuits WFL Visual Convergence WFL Visual [place] WFL M7 OT- IP Mobility and Balance Start: 03/06/25 14:49 Freq: Status: Active Protocol: Document 03/09/25 12:27 [facility] (Rec: 03/09/25 12:56 [facility] Desktop) OT- Bed Mobility Assessment Supine to Sit Supine to Sit Assist Contact Guard Assistance,1 Person Assistance,Head of Bed Elevated,Bedrails OT-Transfer Assessment Sit to and From Stand Sit to and from Moderate Assistance,2 Person Assistance,Use of Upper Stand Extremities Transfers Transfer Ability Moderate Assistance,2 Person Assistance,Use of Upper Extremities Technique Transfer Destination Chair Transfer Technique Stand Step Pivot Devices Transfer Assistive Gait Belt,Front Wheeled Walker Devices Orthotic/Prosthetic No Devices or Brace: Comments Mobility Comments Pt with ataxic type movement and imbalance in trunk during t/fs and standing. Pt demonstrates impaired safety awareness and presents a fall risk posteriorly. Pt requires frequent repetition of cues to hold onto the walker during t/fs and when managing clothing. OT- Balance Assessment Sitting Balance and Reactions Static Sitting Fair Balance Ability Dynamic Sitting Fair Balance Ability Standing Balance and Reactions Static Standing Poor Balance Ability Dynamic Standing Poor Balance Ability M8 OT- IP Objective Assessments Start: 03/06/25 14:49 Freq: Status: Active Protocol: Document 03/06/25 08:50 [facility] (Rec: 03/06/25 15:17 [facility] Desktop) OT Gross Range of Motion Upper Extremity Range of Motion Assessment Bilaterally Impaired OT Strength Upper Extremity Strength Assessment Bilaterally Impaired Comments Strength Comments Pt not able to raise her arm up at her shoulders. Pt WFL from elbow to distal AROM. Strength 4-/5 to 3+/5. M9 OT- IP Assessment and Plan Start: 03/06/25 14:49 Freq: Status: Active Protocol: Document 03/09/25 12:27 [email or web address] (Rec: 03/09/25 12:56 [facility] Desktop) OT Summary Assessment and Plan Potential Rehabilitation Good Potential Analytic Complexity Moderate at Evaluation Summary OT Impairments Pain,Range of Motion,Strength,Balance,Functional Mobility,Self-Feeding,Grooming,Dressing,Toileting, Bathing,Toilet Transfers,Shower Transfers,Activity Tolerance Progress Towards Slow Progress due to Pain,Slow Progress due to Medical Goals Issues,Slow Progress due to Activity Tolerance Assessment Summary Pt was pleasant and cooperative and eager to participate with therapy. Pt requires frequent vcs for safety, especially during functional t/fs and when standing for BADLs. OT educated pt on use of LB AE. Pts LB dressing varies from MOD I to TOTAL A, see treatment section of note for details. Pt scored 22/30 on SLUMS indicating mild neurocognitive disorder. Pt may benefit from repeat of this. Pt told OT that she had been squeezing her lotion bottle to build up candy attendant strength. OT demonstrated exercises with washcloth she can perform, specifically candy attendant squeezes and towel gathers. Pt continues to be appropriate for skilled OT services. Cont per POC. Pt continues to be appropriate for skilled rehab. Goals Self-Feeding Goal Standby Assistance Grooming Goal Minimal Assistance Dressing Goal Minimal Assistance Toileting Goal Standby Assistance Bathing Goal Minimal Assistance Toilet Transfer Goal Standby Assistance Shower Transfer Goal Contact Guard Assistance Days to Meet Goals 20 Frequency of Treatment Other frequency 5x/week Treatment Plan OT Treatment Plan ADL Training,Functional Mobility,Patient/Family Education,Discharge Planning Other Treatment LB dressing equipment Recommendations and Next Treatment Focus Discharge Recommendations OT Discharge SNF Rehab Recommendations Transportation Needs Wheelchair/Cabulance at Discharge
--- NOTE | 2025-03-09 13:46 | SLP.IPNOTE ---
FEDERAL MEDIATION COMMISSIONER spoke with RN who reported no changes to overall swallowing function since initial evaluation 03/06. Discussed with hospitalist and requested MBSS order. FEDERAL MEDIATION COMMISSIONER to continue following up.
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
--- NOTE | 2025-03-09 14:57 | PC.NURSE ---
Day shift: Pt A&Ox4. Pt up to chair with PT, agreeable to care and tolerating meals. Pt pleasant, utilizes call light appropriately. Able to verbalize needs. Vital signs WDL. Care ongoing.
--- NOTE | 2025-03-09 15:19 | SLP.IPNOTE ---
Modified Barium Swallow Study scheduled for tomorrow 03/10 at 8:15. RN aware.
--- NOTE | 2025-03-09 15:50 | CM.DPNOTE ---
DCP note BI APPLICATION DEVELOPER reviewed EMR received notice from [facility] cabin worker, pt has disclosed issues getting ahold of their YARON CM. BI APPLICATION DEVELOPER spoke with Nidhi [facility] horse show manager, reports YARON CM is Walker Coffey [phone]. per Nidhi, pt had new assessment with him in February of this year, pt didn't disclose any issues or changes. has other documented phone follow up calls as well. BI APPLICATION DEVELOPER met with pt in room. confirm preference to dc to SNF prior to return home with son. preference for [facility] to stay close to family. reports frustrations with her body about not being as strong as she wants. per Marika at [facility], can accept and submitted for [employer] auth. pt will need to bring home meds (trintellix and savella). advised this BI APPLICATION DEVELOPER send PASRR to Rika. BI APPLICATION DEVELOPER emailed Signed hospitalist exempt PASRR to Rika for review. P: dc to [facility] pending ins auth/medical stability. CM team will follow closely for DCP coordination KATELYN Yanes
[2025-03-09] MEDS: Vortioxetine [Trintellix] 20 mg tablet 20 EACH PO (20:49)
[2025-03-09] MEDS: ATORVASTATIN 20 MG TABLET 40 MG PO (20:49)
[2025-03-09] MEDS: QUETIAPINE 25 MG TABLET 50 MG PO (20:50)
[2025-03-10] VITALS (22 sets, daily range): BP systolic 145–171; BP diastolic 65–72; PULSE 72–90; RESP 12–32; O2SAT 94–100
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
[2025-03-10 09:16] LABS: Blood Urea Nitrogen 28 mg/dL (7-17); Calcium 9.0 mg/dL (8.4-10.2); Carbon Dioxide 19 mmol/L (22-32); Chloride 111 mmol/L (98-107); Estimated Glomerular Filt Rate 44 mL/min (>60); Glucose 122 mg/dL (70-99); HEMOLYSIS < 15 (0-50); Potassium 4.2 mmol/L (3.4-5.1); Sodium 138 mmol/L (137-145)
[2025-03-10] MEDS: INSULIN GLARGINE 100 UNIT/ML 3ML PEN 16 UNIT SUBCUT (10:06)
[2025-03-10] MEDS: PANTOPRAZOLE DR 40 MG TABLET 80 MG PO (10:13)
[2025-03-10] MEDS: FAMOTIDINE 20 MG TABLET PO (10:14)
[2025-03-10] MEDS: ASPIRIN EC 81 MG TABLET PO (10:14)
[2025-03-10] MEDS: DOCUSATE 100 MG CAPSULE PO (10:14)
[2025-03-10] MEDS: MILNACIPRAN 12.5 MG 12.5 EACH PO (10:15)
[2025-03-10] MEDS: ENOXAPARIN 40 MG/0.4 ML SYRINGE SUBCUT (10:15)
[2025-03-10] MEDS: OXYCODONE IR 5 MG TABLET PO (10:22)
[2025-03-10] MEDS: FERROUS SULFATE 325 MG TABLET PO (10:22)
--- NOTE | 2025-03-10 10:40 | ST.SWALLOW ---
Visit Care Team Role Provider Type Jigar Bird MD Primary Care Provider Physician Specialty: Internal Medicine Address: [address] [place] [address], [id number] Email: [email or web address] Zach Nicole MD Emergency Provider Physician Referring Provider Specialty: Emergency Medicine Address: [address] [place] [address] Email: [email or web address] Brian Whitaker MD Admit Provider Physician Attending Provider Specialty: Internal Medicine Address: [address] [place] [address], [facility] Fax: Email: [email or web address] Modified Barium Swallow Study [employer] Modified Barium Swallow Study Start: 03/10/25 08:34 Freq: Status: Active Protocol: Document 03/10/25 08:34 SS (Rec: 03/10/25 08:55 SS Desktop) Modified Barium Swallow Study Total Time Visit Start Time 08:05 Visit Stop Time 08:30 Total Visit Minutes [address] Christophe Elmore Reason for Referral Dysphagia Setting Setting Acute Care Patient Information Identification Type Name Patient History Per H&P on 03/06/25: 60 years old female with history of CAD, CHF, GERD, hypertension, anxiety, depression, iron deficiency anemia, presented to the ER with headache and right-sided weakness around 1030 last night, unable to move her arm or leg. This lasted for around 45 minutes and at presentation her symptoms resolved. She has a history of right parietal stroke with left-sided weakness in August with full recovery. Laboratory shows WBC 9.5, hemoglobin 13.3, platelets 153, INR 0.9, potassium 4.4, creatinine 1.47, glucose 177, A1C7, calcium 9.2, troponin 0.0 12, TSH 0.166, UA negative for infection. CT of the head negative for intracranial hemorrhage. CTA of the head and neck unremarkable. She was given hydralazine 5 mg IV and fluid bolus in the ED. Pt seen for a clinical swallowing evaluation to assess current swallowing function, determine aspiration risk, and determine need for further instrumental swallow study. Pt has a history of GERD, chronic cough, and esophageal stricture, for which she gets regular dilations. She has had an MBSS ~ 8 years ago and 3 years ago. per pr recollection, no oropharyngeal phase impairments were noted, though slow motility, back-flow of contents, and esophageal stricture were noted. Following CSE, pt referred to Modified Barium Swallow Study (MBSS), to visualize and assess swallow function and anatomy, determine aspiration risk, make appropriate and updated diet and treatment recommendations, as well as to identify need for additional referrals. Subjective Pt?s cognitive and/or communication status is notable Observations for intact communication and cognition. Patient is alert and oriented x4. Oral motor evaluation reveals missing upper dentition and partial lower dentition. Pt does not wear her dentures as they are ill-fitting given some weight loss. She is in the process of getting her dentures replaced and getting dental work done on her lower teeth. CRANIAL NERVE EXAM CN V (Trigeminal): intact b/l CN VII (Facial): intact b/l CN IX/X (Glossopharyngeal/Vagus): intact b/l CN XII (Hypoglossal): Lingual tremors noted at rest and with movement. ROM and strength appear WNL Patient Positioning Position View Lateral Imaging Lateral View Textures Administered Trials Presented Thin Liquid via Spoon (IDDSI 0),Thin Liquid via Cup ( IDDSI 0),Thin Liquid via Straw (IDDSI 0),Puree (IDDSI 4 ),Soft & Bite-sized (IDDSI,Regular (IDDSI 7) Barium Tablet No The IDDSI Framework Protocol: IDDSI.1 Oral Impairment Source: The Modified Barium Swallow Impairment Profile (MBSImP??) Lip Closure No labial escape Tongue Control Cohesive bolus between tongue to palatal seal During Bolus Hold Bolus Preparation/ Timely & efficient chewing & mashing Mastication Bolus Transport/ Brisk tongue motion Lingual Motion Oral Residue Trace residue lining oral structures Location Floor of mouth,Palate,Tongue,Lateral sulci Initiation of Bolus head in valleculae Pharyngeal Swallow Additional Oral Within functional limits. Oral acceptance of bolus was Impairment within normal limits. Pt demonstrated adequate labial Observations seal. Bolus formation was mildly disorganized and inefficient, likely due to missing dentition. Anterior- posterior transit of the bolus and mastication were timely. There were trace amounts of oral residue, primarily with regular solid, requiring multiple attempts at AP transit to propel posteriorly. Oral bolus control was within normal limits. Pharyngeal Impairment Source: The Modified Barium Swallow Impairment Profile (MBSImP??) Soft Palate No bolus between soft palate & pharyngeal wall Elevation Laryngeal Elevation Comp.sup.move.thyroid cart.w/comp.approx.arytenoids to epiglot petiole Anterior Hyoid Complete anterior movement Excursion Epiglottic Movement Complete inversion Laryngeal Vestibular Complete; no air/contrast in laryngeal vestibule Closure Pharyngeal Stripping Present - diminished Wave Pharyngoesophageal Complete distention & complete duration; no obstruction Segment Opening of flow Tongue Base Narrow column of contrast/air betwn tongue base & post. Retraction pharyngeal wall Pharyngeal Residue Trace residue within/on pharyngeal structures Location Diffuse (>3 areas) Additional Mild Impairment. Swallow was initiated with liquids and Pharyngeal solids at the valleculae, which is a normal variation Impairment for pt's age. Velopharyngeal closure was within normal Observations limits. Hyoid/laryngeal elevation was judged to be complete. Epiglottic inversion was complete. Tongue base retraction was mildly reduced. Pharyngeal stripping wave was mildly reduced. Cricopharyngeal opening appeared adequate and did not appear to impede bolus flow into the esophagus. Post-swallow residue was mild, primarily at the base of tongue, posterior pharyngeal wall, valleculae and pyriform sinuses with solids. Pt did sensate to residue and attempted to independently clear with multiple dry swallows (4+), though trace amount of residue remained. Penetration/aspiration were not visualized across trials. Penetration / Aspiration Scale (PAS): Thin 1: No material enters the airway [place] / Mildly Thick Did not test Honey / Moderately Thick Did not test Puree 1: No material enters the airway Minced and Moist Did not test Soft and Bite Sized 1: No material enters the airway Easy to Chew Did not test Regular 1: No material enters the airway A/P View The IDDSI Framework Protocol: IDDSI.1 A/P View Observations Additional A-P A/P view not attempted d/t pt physical mobility and Observations fall risk. Suspect baseline pharyngeal impairment. Pt reported prior MBSS studies had revealed esophageal retention with retrograde flow, though reports not available to [employer]. Pt demonstrated frequent throat clearing and coughing across all trials, with no aspiration/penetration observed, though pt reported continuous feeling of fullness in her upper chest. Suspect referred sensation related to esophageal symptoms and esophageal stricture. Clinical Impressions Dysphagia Type Pharyngeal,Esophageal Findings Pt demonstrates mild pharyngeal phase dysphagia and chronic esophageal phase dysphagia. Oral phase was WNL. Pharyngeal phase deficits c/b reduced base of tongue retraction and pharyngeal stripping wave, resulting in mild pharyngeal residue at the base of tongue, posterior pharyngeal wall, valleculae, and pyriform sinus across liquid and solid consistencies. Positively , pt sensate to pharyngeal residue and attempted to clear with multiple spontaneous swallows; however, trace pharyngeal residue remained despite multiple attempts (4+). No penetration or aspiration were visualized today. Given history of chronic esophageal dysphagia and pt report of fullness in her upper chest across trials, suspect her coughing and throat clearing across trials is due to referred sensation as a result of esophageal retention and retrograde flow. Given discussion with pt, currently recommend continuation of baseline diet (regular, thin). Recommend remaining upright for all PO intake and for 30 minutes after, slow rate, and alternating liquids and solids. Recommend GI referral. Pt may benefit from rehabilitative exercises to target base of tongue retraction and pharyngeal constriction for improved swallowing efficiency at next level of care. Education regarding the findings of today's evaluation was provided and treatment recommendations were reviewed. The pt was given the opportunity to ask questions and was provided with written instructions/ recommendations as indicated. RN and MD notified of MBSS results and provided education re: recommendations . Rehabilitation Good Potential Patient Appropriate Yes for Therapy Recommendations Diet Liquids Order Thin (IDDSI 0) Diet Order Regular (IDDSI 7) Medication As Tolerated Recommendation Aspiration Precautions Recommended Upright at 90 Degrees,Alternate Liquids/Solids,Small Precautions Bites/Sips,Double Swallow Treatment Plan Therapy Outpatient Speech Therapy Recommendations Recommended GI Consult Referrals Placement Home with Home Health,Outpatient Therapy Recommendation After Discharge
--- NOTE | 2025-03-10 11:17 | OT.IP.TRT ---
Current Diagnoses Transient cerebral ischemic attack, unspecified (03/05/25) Occupational Therapy Treatment Note M2 OT-IP Current Condition Start: 03/06/25 14:49 Freq: Status: Active Protocol: Document 03/06/25 08:50 [facility] (Rec: 03/06/25 15:17 [facility] Desktop) Occupational Therapy Current Condition Current Condition Evaluation Date 03/06/25 Treatment Diagnosis TIA Diagnosis Onset Date 03/05/25 M3 OT- IP Subjective and Pain Start: 03/06/25 14:49 Freq: Status: Active Protocol: Document 03/10/25 11:17 [facility] (Rec: 03/10/25 11:25 [facility] Desktop) OT- Subjective Occupational Therapy Visit Type Visit Start Time 10:40 Visit Stop Time 11:19 Occupational Therapy Visit Comments Patient Comments Pt agreed to work on FMS and use the toilet. Patient/Caregiver TO get better. Goals OT Pain Assessment Pain When Pain Assessed During Mobility Pain Present Pain Present Pain Reported Location Generalized Intensity 5 Scale Used Numeric (0 - 10) M4 OT- IP ADL's Start: 03/06/25 14:49 Freq: Status: Active Protocol: Document 03/10/25 11:17 [facility] (Rec: 03/10/25 11:25 [facility] Desktop) OT ADL-Grooming General Evaluation Grooming Ability Independent Areas Needing Retrieving/Set-up of Grooming Items Assistance Comments OT Grooming Comments Pt able to wash her face while seated after set-up. OT ADL-Oral Care General Eval Oral Care Ability Independent Areas of Assistance Retrieving/Set-Up of Items Comments Oral Care Comments Able to do while seated. OT ADL-Dressing General Eval Lower Body Dressing Moderate Assistance Ability Areas Needing Underpants/Brief Assistance Comments OT Dressing Comments Pt able to zelda brief over her feet while use of one hand on the grab bar. HAILEE to stand and for her balance and pt able to pull up her brief. Pt needing asisst with socks. OT ADL-Toileting General Evaluation Toileting Ability Minimal Assistance Areas Needing Manage Clothing,Perform Perineal Hygiene Assistance OT ADL-Bathing Comments OT Bathing Comments Pt able to sponge off her arms/chest. M5 OT- IP IADL's Start: 03/06/25 14:49 Freq: Status: Active Protocol: Document 03/06/25 08:50 [facility] (Rec: 03/06/25 15:17 [facility] Desktop) OT-Instrumental Activities of Daily Living Home Safety Awareness Awareness of Need Good Awareness for Assistance at Home Medication Management Medication Pt states does her own. Management Comments Meal Preparation Meal Preparation Caregiver Provides Assist Silk Screen Cutter Silk Screen Cutter Caregiver Provides Assist Driving Driving Caregiver Provides Assist M6 OT- IP Functional Cognition Start: 03/06/25 14:49 Freq: Status: Active Protocol: Document 03/10/25 11:17 [facility] (Rec: 03/10/25 11:25 [facility] Desktop) Cognitive Factors Limiting Selfcare Function Cognitive Comments Cognitive Assessment Pt continues to need safety vc for FWW safety and hand Comments placement and to always reach back prior to sitting down to surfaces. M7 OT- IP Mobility and Balance Start: 03/06/25 14:49 Freq: Status: Active Protocol: Document 03/10/25 11:17 [facility] (Rec: 03/10/25 11:25 [facility] Desktop) OT-Transfer Assessment Sit to and From Stand Sit to and from Moderate Assistance,1 Person Assistance Stand Transfers Transfer Ability Maximum Assistance,1 Person Assistance Technique Transfer Destination Chair,Toilet Transfer Technique Stand Step Pivot Devices Transfer Assistive Gait Belt,Front Wheeled Walker Devices Comments Mobility Comments Pt very ataxic and tends to lean backwards with her trunk due to core weakness. Pt needing assist to help with her balance, guide the FWW and to keep her core engaged. MAX AX 1 with FWW to the toilet and back to the recliner. OT- Balance Assessment Sitting Balance and Reactions Static Sitting Good Balance Ability Dynamic Sitting Fair Balance Ability Standing Balance and Reactions Static Standing Poor Balance Ability Dynamic Standing Poor Balance Ability M8 OT- IP Objective Assessments Start: 03/06/25 14:49 Freq: Status: Active Protocol: Document 03/06/25 08:50 [facility] (Rec: 03/06/25 15:17 [facility] Desktop) OT Gross Range of Motion Upper Extremity Range of Motion Assessment Bilaterally Impaired OT Strength Upper Extremity Strength Assessment Bilaterally Impaired Comments Strength Comments Pt not able to raise her arm up at her shoulders. Pt WFL from elbow to distal AROM. Strength 4-/5 to 3+/5. M9 OT- IP Assessment and Plan Start: 03/06/25 14:49 Freq: Status: Active Protocol: Document 03/10/25 11:17 [facility] (Rec: 03/10/25 11:25 [facility] Desktop) OT Summary Assessment and Plan Potential Rehabilitation Good Potential Analytic Complexity Moderate at Evaluation Summary OT Impairments Pain,Range of Motion,Strength,Balance,Functional Mobility,Self-Feeding,Grooming,Dressing,Toileting, Bathing,Toilet Transfers,Shower Transfers,Activity Tolerance Progress Towards Progressing Toward Goals Goals Assessment Summary Pt able to actively participate in toileting and sponging off today. Able to give pt theraputty and go over and practice hand exercises and theraband for biceps only at this time. Pt to go to skilled rehab today. Goals Self-Feeding Goal Standby Assistance Grooming Goal Minimal Assistance Dressing Goal Minimal Assistance Toileting Goal Standby Assistance Bathing Goal Minimal Assistance Toilet Transfer Goal Standby Assistance Shower Transfer Goal Contact Guard Assistance Days to Meet Goals 20 Frequency of Treatment Other frequency 5x/week Treatment Plan OT Treatment Plan ADL Training,Functional Mobility,Patient/Family Education,Discharge Planning Discharge Recommendations OT Discharge SNF Rehab Recommendations Transportation Needs Wheelchair/Cabulance at Discharge
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
--- NOTE | 2025-03-10 11:56 | PC.NURSE ---
Discharge order received, patient picked up for transport to [facility] via . IV's removed intact. Patient worked with OT and was up to bathroom and reports having a BM. Report given to Blair at [facility] [phone]. Patient was given her home medications from our pharmacy and [facility] notified they are included in her belongings.
--- NOTE | 2025-03-10 13:45 | CM.DPNOTE ---
Addendum entered by KATELYN Yanes 03/10/25 14:20: received VM from at embedded case manager for pt? from [facility]. (p [phone]) asking about if we need assistance DCP. CRADLE SLIDE MAKER returned call and left voicemail with DCP updates SL Original Note: DCP Note CRADLE SLIDE MAKER reviewed EMR per provider in rounds, can dc today per Marika, has auth can potato picker pt at 1130. CRADLE SLIDE MAKER updated LADLER/RN/charge/provider. CRADLE SLIDE MAKER emailed PASRR/scripts/meds/dc information to Marika. CRADLE SLIDE MAKER confirmed with pharmacy/Rn that pt will be sent with her home meds to . CRADLE SLIDE MAKER met with pt in room. reviewed plan. in agreement. CRADLE SLIDE MAKER spoke with Rika from [facility]. updated on plan. will f/u with pt at . CRADLE SLIDE MAKER faxed level 1 PASRR to Rika. CRADLE SLIDE MAKER placed PASRR/script/meds in chart. P: Dc today to at 1130. CM team will continue to follow as needed for DCP coordination KATELYN Yanes
== END 2025-03-10 11:50 | DRG 69 ==
LOC: ED 19:21 → AC 19:33 → ICU 03-07 02:50
PROVIDERS: Internal Medicine; Admitting Provider Internal Medicine; Emergency Provider Emergency Medicine; PCP Internal Medicine; Referring Provider Emergency Medicine; Visit Provider Internal Medicine
DX: G45.9 Transient cerebral ischemic attack, unspecified (principal); G81.91 Hemiplegia, unspecified affecting right dominant side; N17.9 Acute kidney failure, unspecified; T74.91XA Unspecified adult maltreatment, confirmed, initial encounter; J44.9 Chronic obstructive pulmonary disease, unspecified; I25.10 Atherosclerotic heart disease of native coronary artery without angina pectoris; K21.9 Gastro-esophageal reflux disease without esophagitis; F32.A Depression, unspecified; I95.9 Hypotension, unspecified; N18.32 Chronic kidney disease, stage 3b; I12.9 Hypertensive chronic kidney disease with stage 1 through stage 4 chronic kidney disease, or unspecified chronic kidney disease; E11.22 Type 2 diabetes mellitus with diabetic chronic kidney disease; F43.10 Post-traumatic stress disorder, unspecified; M10.9 Gout, unspecified; Y07.010 Husband, current, perpetrator of maltreatment and neglect; Z87.891 Personal history of nicotine dependence; Z79.4 Long term (current) use of insulin
CPT/HCPCS: 36415; 70450; 70496; 70498; 70551; 74230; 80048; 80053; 80061; 81001; 82533; 82550; 82962; 83036; 83605; 83735; 84145; 84443; 84484; 85025; 85610; 85730; 92610; 92611; 93005; 93306; 96360; 96361; 97129; 97162; 97166; 97530; 97535; 99285; A9270; J0360; J1650; J1815; J2270; J2405; Q9967

== ENCOUNTER 2025-05-27 14:46 | Inpatient (IN) | payer OTHER, SELFPAY ==
[2025-03-08 15:00] VITALS: BMI 29.3
[2025-05-27] VITALS (53 sets, daily range): BP systolic 104–238; BP diastolic 53–133; PULSE 64–114; RESP 16–43; TEMP 36.4–37.1; O2SAT 91–100; BMI 26.2; BMI 25.5
--- NOTE | 2025-05-27 15:22 | DI.RAD.S_ITS ---
1PROCEDURE: XR CHEST 1V INDICATIONS: Chest Pain TECHNIQUE: One view of the chest was acquired. COMPARISON: [facility], CR, XR CHEST 1V, 01/09/2025, 16:47. [facility], CR, XR CHEST 1V, 08/10/2024, 10:33. FINDINGS: Surgical changes and devices: None. Lungs and pleura: Lungs are clear. No pleural effusions or pneumothorax. Mediastinum: Mediastinal contours appear normal. Heart size is normal. Bones and chest wall: No suspicious bony lesions. Partially visualized S- shaped thoracolumbar scoliosis. Cholecystectomy clips in the right upper quadrant. Overlying soft tissues appear unremarkable. IMPRESSION: No acute cardiopulmonary abnormality is seen. Dictated by: Jesse Bajwa M.D. on 05/27/2025 at 15:59 Approved by: Jesse Bajwa M.D. on 05/27/2025 at 16:00
--- NOTE | 2025-05-27 15:22 | EKG_ITS ---
[place] [id number] [address] Test Date: 2025-05-27 Pat Name: Keila Trujillo Department: Room: Gender: Female Supervisor Blood: RUEL : 1965 Requested By: Order Number: [id number] Reading MD: Marvel Case MD Measurements Intervals [place] Rate: 100 P: 45 AL: 130 QRS: -4 QRSD: 72 T: 58 QT: 356 QTc: 459 Interpretive Statements Normal sinus rhythm Nonspecific ST abnormality Electronically Signed On 05-28-2025 7:37:25 PDT by Marvel Case MD
[2025-05-27 15:40] LABS: Add Manual Diff / Slide Review NO; Hematocrit 39.9 % (36-46); Hemoglobin 13.5 g/dL (12.0-16.0); Lymphocytes Absolute Auto 1900 /uL (1100-4500); Mean Corpuscular HGB Conc 33.9 % (30-36); Mean Corpuscular Hemoglobin 31.4 PG (26-34); Mean Corpuscular Volume 92.9 fL (80-100); Platelet Count 121 X10^3/uL (150-400)
[2025-05-27 15:47] LABS: INR 1.0 (0.9-1.3); Prothrombin Time 11.0 SECONDS (9.4-12.5)
[2025-05-27 15:49] LABS: PTT Partial Thromboplastin Tim 32 SECONDS (25.1-36.5)
[2025-05-27 15:53] LABS: Alanine Aminotransferase 22 IU/L (<35); Albumin 4.8 g/dL (3.5-5.0); Albumin Globulin Ratio 1.1 (1.0-2.8); Alkaline Phosphatase 299 U/L (38-126); Blood Urea Nitrogen 28 mg/dL (7-17); Calcium 9.6 mg/dL (8.4-10.2); Carbon Dioxide 17 mmol/L (22-32); Chloride 110 mmol/L (98-107); Creatine Kinase 80 U/L (30-135); Estimated Glomerular Filt Rate 27 mL/min (>60); Globulin 4.3 g/dL (1.7-4.1); Glucose 184 mg/dL (70-99); HEMOLYSIS < 15 (0-50); Lipase 259 U/L (23-300); Magnesium 2.0 mg/dL (1.6-2.3); Potassium 4.4 mmol/L (3.4-5.1); Sodium 140 mmol/L (137-145); Total Protein 9.1 g/dL (6.3-8.2)
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
[2025-05-27] MEDS: LABETALOL 20 MG/4 ML SYRINGE 10 MG IV (16:03)
[2025-05-27 16:04] LABS: NT-proBNP (BNP-Adult 18+) 776 pg/mL (<125); Troponin I 0.018 ng/mL (0.01-0.034)
--- NOTE | 2025-05-27 16:33 | DI.CT.S_ITS ---
PROCEDURE: CT HEAD/BRAIN WO CON INDICATIONS: Dizzy/headache/left side numbness TECHNIQUE: Noncontrast 4.5 mm thick angled axial sections acquired from the foramen magnum to the vertex, with coronal and sagittal reformats. For radiation dose reduction, the following was used: automated exposure control, adjustment of mA and/or kV according to patient size. COMPARISON: [facility], CT, CT HEAD/BRAIN WO CON, 08/08/2024, 19:53. [facility], CT, CT STROKE, 03/05/2025, 17:09. FINDINGS: Image quality: Diagnostic CSF spaces: Basal cisterns are patent. Lateral ventricles are symmetric. Volume: Vascular calcifications. Periventricular white matter disease is commonly seen with chronic microangiopathy. Volume loss is present. These findings are moderate Brain: No intracranial hemorrhage. Maradiaga-white differentiation is grossly maintained. Craniofacial structures: No significant paranasal sinus opacity. IMPRESSION: No acute intracranial pathology. If there is high concern for parenchymal pathology, consider further evaluation with MRI. Dictated by: Nathan Barbosa M.D. on 05/27/2025 at 16:55 Approved by: Nathan Barbosa M.D. on 05/27/2025 at 16:57
--- NOTE | 2025-05-27 16:38 | PC.NURSE ---
Provider Corey made aware of patient blood pressure after labetalol administration.
[2025-05-27 17:07] LABS: Coronavirus NL 63 Not Detected (Not Detect); SARS- CoV-2 Not Detected (Not Detecte)
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
[2025-05-27] MEDS: guaiFENesin Solution 100 MG/5 ML UDC 200 MG PO (18:59)
[2025-05-27] MEDS: AZITHROMYCIN 250 MG TABLET 500 MG PO (18:59)
--- NOTE | 2025-05-27 19:31 | PC.ADMIT ---
[email or web address] Admission Note:PT ARRIVED TO UNIT AT 1815. A/OX4. 97% ON ROOM AIR. BP 217/94. ARRIVED WITH CARDENE GTT RUNNING AT 2.5 TO L AC IV. C/O PAIN TO LOWER BACK PAIN/HEADACHE/ ANXIETY. HELADIO MADE AWARE OF PATIENT ARRIVAL. PLAN TO PLACE ORDERS FOR BP/ COUGH/ ANXIETY. REQUESTED PATIENT ASK SON TO BRING HOME MEDS/ HOME MED LIST TO BE REVIEWED YULI. UP TO BEDSIDE COMMODE WITH ASSISTANCE X1. CARE ONGOING. The patient,Keila Trujillo,60 y/o, was given written information regarding hospital policies, unit procedures and contact persons. Patient's smoking status: . Vital Signs - 8 hr 05/27/25 15:12 05/27/25 15:15 05/27/25 15:28 Temperature 98.8 F Pulse Rate 114 H 108 H Respiratory Rate 18 Blood Pressure 236/133 H Pulse Oximetry 98 99 Oxygen Delivery Method Room Air 05/27/25 15:28 05/27/25 15:29 05/27/25 15:30 Temperature Pulse Rate 105 H 103 H Respiratory Rate Blood Pressure 236/133 H Pulse Oximetry 100 92 Oxygen Delivery Method 05/27/25 16:00 05/27/25 16:03 05/27/25 16:13 Temperature 98.5 F Pulse Rate 102 H 102 H Respiratory Rate 19 Blood Pressure Pulse Oximetry 98 Oxygen Delivery Method Room Air 05/27/25 16:15 05/27/25 16:15 05/27/25 16:21 Temperature Pulse Rate 77 Respiratory Rate Blood Pressure 227/107 H 211/113 H Pulse Oximetry 98 Oxygen Delivery Method 05/27/25 16:21 05/27/25 16:30 05/27/25 16:30 Temperature Pulse Rate 77 79 Respiratory Rate 26 H 31 H Blood Pressure 219/99 H Pulse Oximetry 99 98 Oxygen Delivery Method Room Air 05/27/25 16:37 05/27/25 16:40 05/27/25 16:40 Temperature Pulse Rate 79 80 Respiratory Rate 33 H Blood Pressure 219/99 H 203/93 H Pulse Oximetry 97 Oxygen Delivery Method 05/27/25 17:00 05/27/25 17:11 05/27/25 17:11 Temperature Pulse Rate 83 84 Respiratory Rate Blood Pressure 218/107 H Pulse Oximetry 99 98 Oxygen Delivery Method Room Air 05/27/25 17:30 05/27/25 17:41 05/27/25 17:41 Temperature Pulse Rate 84 86 Respiratory Rate 26 H Blood Pressure 236/107 H Pulse Oximetry 99 98 Oxygen Delivery Method Room Air 05/27/25 17:47 05/27/25 17:47 05/27/25 17:50 Temperature Pulse Rate 86 Respiratory Rate Blood Pressure 238/110 H 222/98 H Pulse Oximetry 99 Oxygen Delivery Method 05/27/25 17:50 05/27/25 17:55 05/27/25 17:55 Temperature Pulse Rate 87 90 Respiratory Rate Blood Pressure 199/63 H Pulse Oximetry 99 97 Oxygen Delivery Method 05/27/25 17:57 05/27/25 17:57 05/27/25 17:59 Temperature Pulse Rate 92 H 91 H Respiratory Rate Blood Pressure 214/93 H Pulse Oximetry 99 95 Oxygen Delivery Method Room Air 05/27/25 18:00 05/27/25 18:00 05/27/25 18:05 Temperature Pulse Rate 92 H Respiratory Rate Blood Pressure 200/63 H 199/79 H Pulse Oximetry 98 Oxygen Delivery Method 05/27/25 18:05 05/27/25 18:15 05/27/25 18:20 Temperature Pulse Rate 90 99 H 98 H Respiratory Rate 26 H 43 H 34 H Blood Pressure Pulse Oximetry 98 98 Oxygen Delivery Method Room Air 05/27/25 18:22 05/27/25 18:22 05/27/25 18:23 Temperature Pulse Rate 97 H 95 H Respiratory Rate 23 27 H Blood Pressure 190/79 H Pulse Oximetry 99 99 Oxygen Delivery Method 05/27/25 18:24 05/27/25 18:30 05/27/25 18:30 Temperature Pulse Rate 95 H Respiratory Rate 31 H Blood Pressure 191/79 H 181/78 H Pulse Oximetry 99 Oxygen Delivery Method Room Air 05/27/25 18:45 05/27/25 18:59 05/27/25 19:00 Temperature Pulse Rate 95 H 99 H 94 H Respiratory Rate 31 H 32 H Blood Pressure 173/65 H 173/65 H 177/76 H Pulse Oximetry 99 99 Oxygen Delivery Method
[2025-05-27 19:41] LABS: Troponin I 0.036 ng/mL (0.01-0.034)
[2025-05-28] VITALS (116 sets, daily range): BP systolic 52–198; BP diastolic 24–96; PULSE 49–71; RESP 9–42; TEMP 36.5–36.6; O2SAT 90–100
[2025-05-28] MEDS: SODIUM CHLORIDE 0.9% 500 ML 100 ML IV (02:46)
--- NOTE | 2025-05-28 04:25 | PC.NURSE ---
0200 Dr Cliff Gomes made aware of SBP in 60s. MD verbally ordered 500cc of NS to be given over five hours. No other orders.
--- NOTE | 2025-05-28 04:27 | PC.NURSE ---
0400 Dr. Cliff Gomes made aware of continued low SBP in patient. No new orders.
[2025-05-28 05:14] LABS: Add Manual Diff / Slide Review NO; Hematocrit 31.2 % (36-46); Hemoglobin 10.6 g/dL (12.0-16.0); Lymphocytes Absolute Auto 2600 /uL (1100-4500); Mean Corpuscular HGB Conc 33.8 % (30-36); Mean Corpuscular Hemoglobin 31.6 PG (26-34); Mean Corpuscular Volume 93.4 fL (80-100); Platelet Count 92 X10^3/uL (150-400)
[2025-05-28 05:37] LABS: NT-proBNP (BNP-Adult 18+) 1820 pg/mL (<125)
[2025-05-28] MEDS: SODIUM CHLORIDE 0.9% 1,000 ML 1000 ML IV (07:35)
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
[2025-05-28] MEDS: PANTOPRAZOLE DR 40 MG TABLET 80 MG PO (09:54)
[2025-05-28] MEDS: ASPIRIN EC 81 MG TABLET PO (09:56)
[2025-05-28] MEDS: INSULIN GLARGINE 100 UNIT/ML 3ML PEN 16 UNIT SUBCUT (09:56)
[2025-05-28 10:34] LABS: Alanine Aminotransferase 18 IU/L (<35); Albumin 3.2 g/dL (3.5-5.0); Albumin Globulin Ratio 1.0 (1.0-2.8); Alkaline Phosphatase 188 U/L (38-126); Blood Urea Nitrogen 25 mg/dL (7-17); Calcium 8.0 mg/dL (8.4-10.2); Carbon Dioxide 18 mmol/L (22-32); Chloride 115 mmol/L (98-107); Estimated Glomerular Filt Rate 31 mL/min (>60); Globulin 3.3 g/dL (1.7-4.1); Glucose 220 mg/dL (70-99); HEMOLYSIS < 15 (0-50); Lactate (Lactic Acid) 1.1 mmol/L (0.7-2.1); Potassium 4.3 mmol/L (3.4-5.1); Sodium 139 mmol/L (137-145); Total Protein 6.5 g/dL (6.3-8.2)
[2025-05-28 10:45] LABS: Troponin I 0.013 ng/mL (0.01-0.034)
[2025-05-28] MEDS: ONDANSETRON 4 MG/2 ML INJ IV (11:33)
[2025-05-28] MEDS: INSULIN LISPRO 100 UNIT/ML 3ML VIAL SUBCUT (12:08)
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
[2025-05-28] MEDS: guaiFENesin Solution 100 MG/5 ML UDC 200 MG PO ×2 (18:25→20:57)
[2025-05-29] VITALS (52 sets, daily range): BP systolic 98–215; BP diastolic 44–84; PULSE 54–80; RESP 9–35; TEMP 36.4–36.8; O2SAT 89–98
[2025-05-29 06:18] LABS: Add Manual Diff / Slide Review NO; Hematocrit 32.4 % (36-46); Hemoglobin 10.9 g/dL (12.0-16.0); Lymphocytes Absolute Auto 2800 /uL (1100-4500); Mean Corpuscular HGB Conc 33.6 % (30-36); Mean Corpuscular Hemoglobin 31.4 PG (26-34); Mean Corpuscular Volume 93.6 fL (80-100); Platelet Count 81 X10^3/uL (150-400)
[2025-05-29] MEDS: PANTOPRAZOLE DR 40 MG TABLET 80 MG PO (08:07)
[2025-05-29] MEDS: ASPIRIN EC 81 MG TABLET PO (08:07)
[2025-05-29] MEDS: INSULIN GLARGINE 100 UNIT/ML 3ML PEN 16 UNIT SUBCUT (08:09)
[2025-05-29] MEDS: INSULIN LISPRO 100 UNIT/ML 3ML VIAL SUBCUT (08:10)
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
--- NOTE | 2025-05-29 13:38 | CM.DPC ---
HH referral sent to [facility].
== END 2025-05-29 13:50 | disposition home health service (06) | DRG 305 ==
LOC: ED 17:55 → AC 17:57 → ICU 18:13
PROVIDERS: Hospitalist; Admitting Provider Internal Medicine; Emergency Provider Emergency Medicine; PCP Internal Medicine; Referring Provider Emergency Medicine; Visit Provider Internal Medicine
DX: I16.0 Hypertensive urgency (principal); N17.9 Acute kidney failure, unspecified; I25.10 Atherosclerotic heart disease of native coronary artery without angina pectoris; F41.9 Anxiety disorder, unspecified; K21.9 Gastro-esophageal reflux disease without esophagitis; F32.9 Major depressive disorder, single episode, unspecified; M79.7 Fibromyalgia; M10.9 Gout, unspecified; I12.9 Hypertensive chronic kidney disease with stage 1 through stage 4 chronic kidney disease, or unspecified chronic kidney disease; N18.32 Chronic kidney disease, stage 3b; E11.22 Type 2 diabetes mellitus with diabetic chronic kidney disease; F43.10 Post-traumatic stress disorder, unspecified; I25.2 Old myocardial infarction; Z86.73 Personal history of transient ischemic attack (TIA), and cerebral infarction without residual deficits; Z86.79 Personal history of other diseases of the circulatory system; Z79.4 Long term (current) use of insulin
CPT/HCPCS: 36415; 70450; 71045; 80053; 82550; 82962; 83605; 83690; 83735; 83880; 84484; 85025; 85610; 85730; 87633; 93005; 93010; 96365; 96375; 99284; 99291; J1815; J2060; J2405; J7030; J7050

== ENCOUNTER 2025-07-02 07:49 | Observation (INO) | payer OTHER, SELFPAY ==
[2025-05-27 18:26] VITALS: BMI 25.5
[2025-07-02] VITALS (19 sets, daily range): BP systolic 120–258; BP diastolic 50–125; PULSE 61–106; RESP 16–22; TEMP 36.9–37.7; O2SAT 94–99; BMI 25.5
--- NOTE | 2025-07-02 08:20 | DI.CT.S_ITS ---
PROCEDURE: CT ANGIO CHEST ABDOMEN PELVIS INDICATIONS: concern for upper GIB TECHNIQUE: Precontrast 5 mm thick sections acquired from the lung apices to the iliac crests. After the administration of intravenous contrast, 2.5 mm thick sections again acquired from the lung apices to the iliac crests. Maximum intensity projection (MIP) oblique sagittal and coronal reformats were then acquired. For radiation dose reduction, the following was used: automated exposure control. COMPARISON: None. FINDINGS: Image quality: Diagnostic. AORTA: No aortic aneurysm. No acute aortic syndrome. CHEST: Lower Neck: No enlarged lymph nodes. Thyroid: No thyroid nodules which require sonographic evaluation. Axillae: No enlarged lymph nodes. Chest Wall: Unremarkable. Lungs and Pleura: No pneumothorax or pleural effusions. No consolidation or suspicious nodules. Heart: Heart size is normal. Triple-vessel coronary artery calcifications. No pericardial effusion. Thoracic Vessels: Pulmonary arteries demonstrate normal size. Mediastinum and Shaista: No enlarged lymph nodes. Esophagus: No wall thickening. Moderate hiatal hernia with mild mural thickening of the distal tubular esophagus. Debris within the mid to distal thoracic esophagus. Correlate for reflux. ABDOMEN: Liver: Cirrhotic liver morphology. No focal mass. Gallbladder: Post cholecystectomy. Biliary ducts: Post cholecystectomy reservoir effect of the common bile duct. No choledocholithiasis. No intrahepatic biliary ductal dilatation. Pancreas: No ductal dilation. Spleen: Size is within normal limits. Adrenal Glands: No adrenal nodules. Kidneys and Ureters: No hydronephrosis. No solid mass. No complex renal cystic lesion which requires follow up. Stomach and Bowel: Pills in the gastric lumen. No focal contrast extravasation. Normal appendix. The small and large bowel are normal in caliber with normal wall thickness. Peritoneum: No abnormal intraperitoneal fluid. No free air. Ventral Wall: No hernia. Abdominal Nodes: No retroperitoneal or mesenteric adenopathy by size criteria. Vessels: Inferior vena cava is normal in size. PELVIS: Pelvic Organs: Post hysterectomy.. Bladder: Unremarkable. Pelvic Nodes: No enlarged lymph nodes. Miscellaneous: No inguinal hernias are seen. Bones: S-shaped thoracolumbar scoliosis with multilevel degenerative changes in the thoracic and lumbar spine, greatest at the lumbosacral junction. No compression deformity. IMPRESSION: 1. No acute aortic syndrome. 2. No pulmonary embolus to level of the subsegmental pulmonary arteries. 3. Moderate hiatal hernia with moderate mural thickening of the mid the distal tubular esophagus, which can be seen with chronic reflux. No discrete contrast extravasation to suggest acute hemorrhage. If there is high clinical suspicion, consider upper endoscopy for further evaluation. 4. Cirrhotic liver morphology without focal lesion. Dictated by: Jesse Bajwa M.D. on 07/02/2025 at 9:36 Approved by: Jesse Bajwa M.D. on 07/02/2025 at 9:43
[2025-07-02] MEDS: ONDANSETRON 4 MG/2 ML INJ IV ×3 (08:32→20:34)
[2025-07-02] MEDS: MORPHINE 2 MG/ML INJ IV ×4 (08:32→21:46)
[2025-07-02 08:36] LABS: Alanine Aminotransferase 53 IU/L (<35); Albumin 4.9 g/dL (3.5-5.0); Albumin Globulin Ratio 1.1 (1.0-2.8); Alkaline Phosphatase 313 U/L (38-126); Blood Urea Nitrogen 32 mg/dL (7-17); Calcium 9.4 mg/dL (8.4-10.2); Carbon Dioxide 18 mmol/L (22-32); Chloride 108 mmol/L (98-107); Estimated Glomerular Filt Rate 28 mL/min (>60); Globulin 4.3 g/dL (1.7-4.1); Glucose 260 mg/dL (70-99); HEMOLYSIS 21 (0-50); Potassium 4.0 mmol/L (3.4-5.1); Sodium 146 mmol/L (137-145); Total Protein 9.2 g/dL (6.3-8.2)
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
[2025-07-02 08:43] LABS: Add Manual Diff / Slide Review NO; Hematocrit 41.5 % (36-46); Hemoglobin 14.1 g/dL (12.0-16.0); Lymphocytes Absolute Auto 2100 /uL (1100-4500); Mean Corpuscular HGB Conc 33.9 % (30-36); Mean Corpuscular Hemoglobin 30.9 PG (26-34); Mean Corpuscular Volume 91.1 fL (80-100); Platelet Count 189 X10^3/uL (150-400)
[2025-07-02] MEDS: METOCLOPRAMIDE 10 MG/2 ML INJ 5 MG IV (09:26)
--- NOTE | 2025-07-02 10:00 | EKG_ITS ---
[address] [address] Test Date: 2025-07-02 Pat Name: Keila Ridleyaguilarhoney Department: [facility] Room: Gender: Female Seat Mender: : 1965 Requested By: Order Number: [id number] Reading MD: Montana Candelaria Measurements Intervals [place] Rate: 73 P: 43 NC: 146 QRS: -16 QRSD: 60 T: 43 QT: 400 QTc: 440 Interpretive Statements Normal sinus rhythm Electronically Signed On 07-02-2025 17:28:11 PST by Montana Candelaria
[2025-07-02] MEDS: PANTOPRAZOLE 40 MG VIAL 80 MG IV (10:12)
[2025-07-02] MEDS: OCTREOTIDE 100 MCG/ML VIAL 50 MCG IV (12:39)
[2025-07-02 14:21] LABS: INR 1.0 (0.9-1.3); Prothrombin Time 11.8 SECONDS (9.4-12.5)
--- NOTE | 2025-07-02 14:57 | PC.NURSE ---
Pt arrived to acute care at appx 1450. Transferred to bed with sliding board. Pt c/o RUQ abdominal pain and nausea, said she last ate a meal around 1999 last night. Pt is oriented to room and how to use call light. Bed alarm is on. Care ongoing.
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
[2025-07-02] MEDS: SODIUM CHLORIDE 0.9% 1,000 ML 100 ML IV (15:46)
[2025-07-02] MEDS: INSULIN LISPRO 100 UNIT/ML 3ML VIAL SUBCUT (16:49)
[2025-07-02] MEDS: OCTREOTIDE 500 MCG in SODIUM CHLORIDE 0.9% 100 ML 5.05 MCG IV (16:50)
[2025-07-02] MEDS: PANTOPRAZOLE 40 MG VIAL IV (21:38)
[2025-07-03] VITALS (13 sets, daily range): BP systolic 102–181; BP diastolic 38–70; PULSE 53–62; RESP 14–18; TEMP 36.4–37.2; O2SAT 94–99
[2025-07-03] MEDS: MORPHINE 2 MG/ML INJ IV (02:29)
[2025-07-03] MEDS: SODIUM CHLORIDE 0.9% 1,000 ML 100 ML IV ×2 (02:29→18:22)
[2025-07-03 05:25] LABS: Add Manual Diff / Slide Review NO; Hematocrit 34.9 % (36-46); Hemoglobin 11.7 g/dL (12.0-16.0); Lymphocytes Absolute Auto 4900 /uL (1100-4500); Mean Corpuscular HGB Conc 33.5 % (30-36); Mean Corpuscular Hemoglobin 30.8 PG (26-34); Mean Corpuscular Volume 91.8 fL (80-100); Platelet Count 103 X10^3/uL (150-400)
[2025-07-03 07:26] LABS: Blood Urea Nitrogen 27 mg/dL (7-17); Calcium 7.8 mg/dL (8.4-10.2); Carbon Dioxide 20 mmol/L (22-32); Chloride 109 mmol/L (98-107); Estimated Glomerular Filt Rate 36 mL/min (>60); Glucose 118 mg/dL (70-99); HEMOLYSIS 17 (0-50); Potassium 4.1 mmol/L (3.4-5.1); Sodium 137 mmol/L (137-145)
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
--- NOTE | 2025-07-03 08:33 | CM.DANOTE ---
Initial DCP Assessment Note. Review EMR and PT Interview. Met with patient at bedside to discuss discharge needs.PT is alert x 4 sitting up in BED. No acute distress. Dependent on DME. patient's son, Mehdi, is her [employer] CG. 118 hr/month. Payor:??[employer] Preferred PCP: Summary & Plan:?60 arrived to ED via POV c/o vomiting blood and abd pain. Admitted OBS. Dx. Hematemesis. Plan: NPO, IVF, GI consult. Discharge to home when improved. Discharge Planning/Care Management CM Discharge Assessment Start: 07/02/25 14:25 Freq: Status: Active Protocol: Document 07/03/25 08:29 (Rec: 07/03/25 08:33 [id number]) Discharge Planning Assessment Assigned Discharge Kaley Leo RN CM Loan Closer Provider Dr. Bird Insurance Other (enter in Comment) Insurance Comment [employer] Preferred Advance Directives? Yes Advance Directives No on File History Provided By Patient,Medical Record Prior Living Mobile home Arrangements Household Members children Type of Relies on Others transporation used prior to admit Independent with ADL No 's Is patient alert and Yes oriented? Needs Assistance Bathing,Meal Prep,Managing Medications,Home Chores / With Shopping Caregiver for No Another DME Already Rented / Bath Bench,Hospital Bed,Wheelchair,FWW / Walker,Cane Owned Comment Uses both cane and walker on occasion. Patient/Family Home with Home Health Preference Barriers to No Discharge Comment Home w/family expected. r/o need for HH closer to [place] . Son, Mehdi, ph#[phone] Discharge Plan Home Transportation Son Arrangement Additional Comment Home health ? Review Status In Process Please Provide Date 07/03/25 Initial DC Assessment Was Performed Next Review Type Continued Stay Review
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
[2025-07-03] MEDS: LACTATED RINGERS 1,000 ML 42 ML IV (09:14)
--- NOTE | 2025-07-03 09:46 | PM.OP.EGD ---
Operative Date/Time/Diagnoses Date of procedure: 07/03/25 Time of procedure: 09:46 Pre-op diagnosis: Hematemesis Post-op diagnosis: same Procedure & Clinicians Study performed: Esophagogastroduodenoscopy Same procedure(s) as scheduled: Yes Indications: Hematemesis Surgeon: Cleve Sewell Anesthesia Type: MAC +/- Procedure Notes Procedure in detail: Surgeon: Cleve Sewell MD Anesthesia: Mele Eugenio DO A timeout was performed. A bite blocked was placed. The patient was positioned in the left lateral decubitus position. Anesthesia was administered. The endoscope was inserted through the bite block and passed through the esophagus and stomach and into the duodenum. The duodenal mucosa appeared normal. The scope was withdrawn into the duodenal bulb and no abnormalities were seen. The scope was withdrawn into the stomach. No ulcers were seen. The rest of the stomach was normal. The scope was retroflexed and a small hiatal hernia was noted but there was no evidence of Gene's ulcers. The scope was withdrawn into the esophagus and moderate esophagitis was noted, primarily in the distal third of the esophagus. Random biopsies were performed with the cold forceps from the GE junction, distal esophagus and proximal esophagus. The remainder of the esophagus was normal. The scope was withdrawn. The patient was awakened and brought to recovery. Sedation time: 10 minutes Findings: Moderate esophagitis Estimated Blood Loss: 5 Complications: none Post-procedure Disposition: PACU
[2025-07-03] MEDS: PANTOPRAZOLE 40 MG VIAL IV (10:27)
--- NOTE | 2025-07-03 12:49 | DIET.CONS ---
Dietary Consultation Note Admission Date: 07/02/2025 14:18 Assessment: 60 y F admitted for hematemesis. Dietitian screened for MNA score. Pt to have EGD today. . Hx of cirrhosis, DM2, CKD3b Previously met with pt who reports in light of gastroparesis has limited diet and loss of 54# 3 years ago. Hx of DM, last A1c 7.0 on 03/05/25. Ht: 144.78 cm Wt: 53.524 kg BMI: 25.5 UBW: 112-118 lb (50.0-53.6 kg); has maintained stable weight Last BM: 07/02/25 (07/02/25 14:45) MNA: 9 Sim Score: 19 Diet: 07/03/25 Lunch General (Regular) Diet Diet Modifications: Food Texture: Level 7 - Regular Liquid Consistency: Level 0 - Thin Nutrition Percent Meal Consumed Ice chips 07/02/25 18:28 Labs: RBC 3.81 X10^6/uL (4.0-5.2) L 07/03/25 04:30 Hgb 11.7 g/dL (12.0-16.0) L 07/03/25 04:30 Hct 34.9 % (36-46) L 07/03/25 04:30 Creatinine 1.61 mg/dL (0.52-1.04) H 07/03/25 06:52 Nutrition Diagnosis: Altered GI function r/t altered GI motility aeb gastroparesis Increased nutrient needs (kcals/protein) r/t altered GI function aeb cirrhosis Interventions: Ensure plus BID when pt's diet is advanced from clears Coordination with kitchen on tolerated foods Previously reports receiving diet educ already EER: 1600 kcals (30 kcals/kg per cirrhosis) 45-55 g protein (.8-1g/kg per CKD3b with cirrhosis and DM) Monitoring/Evaluations: PO intakes, ONS tolerance Electronically Signed by: Bibiana Gruber 07/03/25 12:49 Clinical Dietitian [address] [id number]
[2025-07-03] MEDS: INSULIN LISPRO 100 UNIT/ML 3ML VIAL SUBCUT ×2 (12:50→17:29)
[2025-07-03] MEDS: ONDANSETRON 4 MG/2 ML INJ IV (17:25)
[2025-07-03] MEDS: SUCRALFATE 1 GM/10 ML ORAL SUSP PO ×2 (18:22→23:42)
[2025-07-03] MEDS: ONDANSETRON 4 MG ODT SL (20:23)
[2025-07-03] MEDS: PANTOPRAZOLE DR 40 MG TABLET PO (21:41)
[2025-07-04] MEDS: SODIUM CHLORIDE 0.9% 1,000 ML 100 ML IV (03:53)
[2025-07-04 05:00] VITALS: BP 110/43; PULSE 51; RESP 17; TEMP 36.5; O2SAT 97
[2025-07-04 05:31] LABS: Add Manual Diff / Slide Review NO; Hematocrit 32.1 % (36-46); Hemoglobin 10.7 g/dL (12.0-16.0); Lymphocytes Absolute Auto 5200 /uL (1100-4500); Mean Corpuscular HGB Conc 33.2 % (30-36); Mean Corpuscular Hemoglobin 30.9 PG (26-34); Mean Corpuscular Volume 93.0 fL (80-100); Platelet Count 108 X10^3/uL (150-400)
[2025-07-04 05:35] LABS: Blood Urea Nitrogen 20 mg/dL (7-17); Calcium 7.5 mg/dL (8.4-10.2); Carbon Dioxide 19 mmol/L (22-32); Chloride 112 mmol/L (98-107); Estimated Glomerular Filt Rate 43 mL/min (>60); Glucose 177 mg/dL (70-99); HEMOLYSIS 50 (0-50); Potassium 4.5 mmol/L (3.4-5.1); Sodium 137 mmol/L (137-145)
[2025-07-04] MEDS: SUCRALFATE 1 GM/10 ML ORAL SUSP PO ×2 (06:03→13:34)
[2025-07-04] MEDS: PANTOPRAZOLE DR 40 MG TABLET PO (06:03)
[2025-07-04 08:00] VITALS: BP 128/43; PULSE 54; RESP 16; TEMP 36.8; O2SAT 100
[2025-07-04] MEDS: INSULIN LISPRO 100 UNIT/ML 3ML VIAL SUBCUT ×2 (08:16→12:16)
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
[2025-07-04 10:52] VITALS: BP 128/43; PULSE 54
--- NOTE | 2025-07-04 15:00 | CM.DPC ---
DCP Discharge Home Per MD, pt had some emesis this morning after breakfast but anticipate likely d/c home with son to transport this afternoon pending how she tolerates diet. SW confirmed with Eva VICTOR that pt was on HH services after referral last month when she was discharge home but discharged from HH services and not currently open to services. No current recommendation for HH and no need for PT eval while admitted at this time. Plan: SW to follow for plan of discharge home with son/YARON CG today vs tomorrow and outpt f/u and pt with current restraining order against . Jenise Jones, AM[employer]IA BOX OPERATOR
--- NOTE | 2025-07-04 16:09 | PC.NURSE ---
1600: Discharge instructions given and understood by patient and son. PIV removed. Medications retrieved from pharmacy. Patient left with belongings. Patient transported to private vehicle via wheelchair.
== END 2025-07-04 16:34 | disposition home or self-care (01) ==
LOC: ED 08:19 → AC 14:19
PROVIDERS: Surgery; Admitting Provider Hospitalist; Emergency Provider Student in an Organized Health Care Education/Training Program; PCP Internal Medicine; Referring Provider Student in an Organized Health Care Education/Training Program; Visit Provider Hospitalist
PROC: 0DJ08ZZ Inspection of Upper Intestinal Tract, Via Natural or Artificial Opening Endoscopic (ICD-10-PCS; CPT 43239; principal; 2025-07-03 09:00)
DX: K92.0 Hematemesis (principal); K74.69 Other cirrhosis of liver; I12.9 Hypertensive chronic kidney disease with stage 1 through stage 4 chronic kidney disease, or unspecified chronic kidney disease; E11.22 Type 2 diabetes mellitus with diabetic chronic kidney disease; N18.32 Chronic kidney disease, stage 3b; J44.9 Chronic obstructive pulmonary disease, unspecified; E78.5 Hyperlipidemia, unspecified; I25.2 Old myocardial infarction; Z79.82 Long term (current) use of aspirin; Z79.4 Long term (current) use of insulin; Z86.73 Personal history of transient ischemic attack (TIA), and cerebral infarction without residual deficits; Z87.891 Personal history of nicotine dependence; K44.9 Diaphragmatic hernia without obstruction or gangrene; K20.90 Esophagitis, unspecified without bleeding
CPT/HCPCS: 43239; 36415; 71275; 74174; 80048; 80053; 82962; 85025; 85610; 86850; 86900; 86901; 93005; 96365; 96366; 96367; 96375; 96376; 99284; G0378; J0696; J1815; J2270; J2354; J2405; J2470; J2704; J2765; J7030; J7050; J7120; Q9967

== ENCOUNTER → 2025-07-09 13:33 | Outpatient (CLI) | payer OTHER, SELFPAY ==
[2025-07-02 14:45] VITALS: BMI 25.5
[2025-07-09 14:20] LABS: Hematocrit 36.5 % (36-46); Hemoglobin 12.2 g/dL (12.0-16.0); Mean Corpuscular HGB Conc 33.4 % (30-36); Mean Corpuscular Hemoglobin 30.6 PG (26-34); Mean Corpuscular Volume 91.9 fL (80-100); Platelet Count 186 X10^3/uL (150-400)
[2025-07-09 14:35] LABS: Hemoglobin A1C% w Est Avg Glu 7.2 % (4.0-6.0)
[2025-07-09 15:04] LABS: Alanine Aminotransferase 32 IU/L (<35); Albumin 4.0 g/dL (3.5-5.0); Albumin Globulin Ratio 1.2 (1.0-2.8); Alkaline Phosphatase 294 U/L (38-126); Amylase 76 U/L (30-110); Blood Urea Nitrogen 14 mg/dL (7-17); Calcium 9.3 mg/dL (8.4-10.2); Carbon Dioxide 21 mmol/L (22-32); Chloride 109 mmol/L (98-107); Estimated Glomerular Filt Rate 44 mL/min (>60); Globulin 3.3 g/dL (1.7-4.1); Glucose 252 mg/dL (70-99); HEMOLYSIS < 15 (0-50); Lipase 529 U/L (23-300); Potassium 4.2 mmol/L (3.4-5.1); Sodium 140 mmol/L (137-145); Total Protein 7.3 g/dL (6.3-8.2)
== END ==
PROVIDERS: PCP Internal Medicine; Referring Provider Internal Medicine; Visit Provider Internal Medicine
DX: R10.11 Right upper quadrant pain (principal); E11.59 Type 2 diabetes mellitus with other circulatory complications
CPT/HCPCS: 36415; 80053; 82150; 83036; 83690; 85027

== ENCOUNTER 2025-07-30 17:30 | Emergency (ER) | payer OTHER, SELFPAY ==
[2025-07-28 13:05] VITALS: BMI 25.5
[2025-07-30 17:55] VITALS: BP 228/92; PULSE 89; RESP 18; TEMP 36.8; O2SAT 99; BMI 24.2
--- NOTE | 2025-07-30 18:07 | DI.CT.S_ITS ---
PROCEDURE: CT CERVICAL SPINE WO CON INDICATIONS: fall/c spine pain, no thinners TECHNIQUE: Noncontrast 3 mm thick sections acquired from the skull base to the T4 level. Sagittal and coronal reformats were then constructed. For radiation dose reduction, the following was used: automated exposure control, adjustment of mA and/or kV according to patient size. COMPARISON: [facility], CT, CT ANGIO HEAD AND NECK, 03/05/2025, 17:09. [facility], CT, CT HEAD/BRAIN WO CON, 07/30/2025, 18:22. [facility], CT, C- SPINE WITHOUT CONTRAST, 07/05/2017, 14:48. FINDINGS: Image quality: This examination is somewhat limited by quantum mottle artifact. Bones: No fractures or dislocations. Visualized superior ribs are intact. S- shaped scoliotic curvature is seen. Moderate lower cervical spine degenerative changes are seen. Multiple levels of facet hypertrophy can be seen. Soft tissues: Prevertebral soft tissues are normal in thickness. No paravertebral hematomas. No apical pneumothoraces. IMPRESSION: No displaced fracture or traumatic subluxation. Dictated by: Alessandro Najera M.D. on 07/30/2025 at 17:58 Approved by: Alessandro Najera M.D. on 07/30/2025 at 18:01
--- NOTE | 2025-07-30 18:07 | DI.CT.S_ITS ---
PROCEDURE: CT HEAD/BRAIN WO CON INDICATIONS: fall/hit head, no thinners TECHNIQUE: Noncontrast 4.5 mm thick angled axial sections acquired from the foramen magnum to the vertex, with coronal and sagittal reformats. For radiation dose reduction, the following was used: automated exposure control, adjustment of mA and/or kV according to patient size. COMPARISON: [facility], CT, CT CERVICAL SPINE WO CON, 07/30/2025, 18:22. [facility], MR, MR HEAD/BRAIN WO CON, 03/06/2025, 10:34. [facility], CT, CT HEAD/BRAIN WO CON, 05/27/2025, 16:51. FINDINGS: Image quality: Streak artifact can be seen through the skull base. CSF spaces: Basal cisterns are patent. No extra-axial fluid collections. The ventricles are symmetric in size and shape. Brain: No intracranial bleeds or mass effect. There is cerebral volume loss, with resultant ventricular and sulcal prominence. There are periventricular and deep white matter chronic small vessel ischemic changes. There is intracranial internal carotid artery atherosclerosis. Skull and face: Calvarium and visualized facial bones appear intact, without suspicious lesions. Sinuses: Visualized sinuses and mastoids are clear. IMPRESSION: No acute intracranial hemorrhage is seen. No acute intracranial pathology. Dictated by: Alessandro Najera M.D. on 07/30/2025 at 17:56 Approved by: Alessandro Najera M.D. on 07/30/2025 at 17:58
[2025-07-30 19:56] VITALS: BP 214/87
[2025-07-30] MEDS: ACETAMINOPHEN 325 MG TABLET 650 MG PO (21:04)
[2025-07-30] MEDS: METOCLOPRAMIDE HCL 5 MG TABLET PO (21:04)
[2025-07-30 22:35] VITALS: BP 236/109; PULSE 86; RESP 19; O2SAT 99
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
== END 2025-07-30 23:14 | disposition home or self-care (01) ==
PROVIDERS: Emergency Provider Student in an Organized Health Care Education/Training Program; PCP Internal Medicine
DX: S09.90XA Unspecified injury of head, initial encounter (principal); M54.2 Cervicalgia; R20.0 Anesthesia of skin; M54.9 Dorsalgia, unspecified; M25.519 Pain in unspecified shoulder; E11.9 Type 2 diabetes mellitus without complications; I10 Essential (primary) hypertension; W19.XXXA Unspecified fall, initial encounter
CPT/HCPCS: 70450; 72125; 99283